=== PATIENT | male | born 1960 | race Caucasian/White ===

== ENCOUNTER 2017-03-12 09:35 | Outpatient (RCR) | payer BC ==
[2017-03-10] MEDS: CATHETER FLUSH 10 ML SYR IV PRN (13:25)
[2017-03-10 14:05] VITALS: BP 153/94
[2017-03-11] MEDS: cefTRIAXone 1 GM/NS 50 ML IVPB IV SCH ×2 (09:45)
[2017-03-11] MEDS: CATHETER FLUSH 10 ML SYR IV PRN (10:15)
[2017-03-11 10:20] VITALS: BP 129/80
[~2017-03-12] VITALS: Ht 177.8 cm; Wt 100.2 kg
[~2017-03-12 09:35] MED LIST: ASP81CT PO; ASP81TEC PO; CLINDAMYCIN 600 MG/NS 50 ML IVPB IV ONE; CYCL10TA9 PO; DIAZ5TAB3 PO; DICL75TA2 PO; DULO60CA6 PO; ENAL1TAB19 PO; HYDR-3454 PO; HYDR-3730 PO; MELO-195 PO; NIA500ERT PO; SIMV40TA4 PO; TADA2.5T PO; VENL75CA55 PO; VENL75TA6 PO; cefTRIAXone 2 GM/NS 50 ML IVPB IV ONE
[2017-03-12] MEDS: cefTRIAXone 1 GM/NS 50 ML IVPB IV SCH ×2 (09:45)
[2017-03-12] MEDS: CATHETER FLUSH 10 ML SYR IV PRN (10:10)
[2017-03-12 10:20] VITALS: BP 143/84
[2017-03-19] MEDS ORDERED: cefTRIAXone 1 GM (ROCEPHIN) VIAL ONE (20:56)
[2017-03-19] MEDS ORDERED: NS (IVPB) 50 ML ONE (20:57)
== END 2017-03-18 | disposition home or self-care (01) ==
LOC: SDC 09:35
PROVIDERS: ATTEND Nurse Practitioner Family
DX: K04.7 Periapical abscess without sinus (principal)
CPT/HCPCS: 96365; 96368

== ENCOUNTER → 2017-03-18 21:15 | Outpatient (RCR) | payer BC ==
[2017-03-17 21:00] VITALS: BP 116/67
[2017-03-17 21:12] LABS: MEAN PLATELET VOLUME 9.7 FL (7.4-10.4); RED BLOOD COUNT 4.48 10^6/uL (4.35-5.85); RED CELL DISTRIBUTION WIDTH 13.6 % (10.0-14.5); WHITE BLOOD COUNT 6.3 10^3/uL (4.3-11.0)
[~2017-03-18] VITALS: Ht 177.8 cm; Wt 99.8 kg
[~2017-03-18 21:15] MED LIST changes: -CLINDAMYCIN 600 MG/NS 50 ML IVPB IV ONE; -cefTRIAXone 2 GM/NS 50 ML IVPB IV ONE
[2017-03-18 22:00] VITALS: BP 117/75
== END | disposition home or self-care (01) ==
LOC: 4THo 03-17 20:49 → 4TH RCR 03-17 21:10 → 4THo 09:14 → 4TH RCR 21:15
PROVIDERS: ATTEND Nurse Practitioner Family
DX: K04.7 Periapical abscess without sinus (principal)
CPT/HCPCS: 36415; 85027; 96365

== ENCOUNTER 2017-03-19 21:00 | Outpatient (RCR) | payer BC ==
[~2017-03-19] VITALS: Ht 177.8 cm; Wt 99.8 kg
[2017-03-19] MEDS ORDERED: cefTRIAXone INJECTION 1,000 MG in NS (IVPB) 50 ML IV ONE (21:30)
[2017-03-19 22:10] VITALS: BP 122/79
== END 2017-06-17 | disposition home or self-care (01) ==
LOC: 4TH RCR 21:00
PROVIDERS: ATTEND Nurse Practitioner Family
DX: K04.7 Periapical abscess without sinus (principal)
CPT/HCPCS: 96365

== ENCOUNTER 2018-07-06 14:26 | Outpatient (CLI) | payer BC ==
[~2018-07-06] VITALS: Ht 175.3 cm; Wt 101.2 kg
[2018-07-06] MEDS ORDERED: SIMV40TA4 PO (14:30)
[2018-07-06] MEDS ORDERED: DICL75TA2 PO (14:30)
[2018-07-06] MEDS ORDERED: GABA-488 PO (14:30)
[2018-07-06] MEDS ORDERED: VENL75CA PO (14:30)
[2018-07-06] MEDS ORDERED: DULO60CA58 PO (14:30)
[2018-07-06] MEDS ORDERED: CYCL10TA9 PO (14:30)
[2018-07-06] MEDS ORDERED: ENAL1TAB8 PO (14:30)
[2018-07-06] MEDS ORDERED: DIAZ5TAB3 PO (14:30)
[2018-07-06] MEDS ORDERED: ASPI-999 PO (14:30)
== END 2018-07-06 14:32 | disposition home or self-care (01) ==
LOC: PREOP 14:26
PROVIDERS: ATTEND Surgery
DX: Z01.818 Encounter for other preprocedural examination (principal)

== ENCOUNTER 2018-07-11 09:28 | Day surgery (SDC) | payer BC ==
[~2018-07-11] VITALS: Ht 175.3 cm; Wt 101.2 kg
[~2018-07-11 09:28] MED LIST changes: +ASPI-999 PO; +DULO60CA58 PO; +ENAL1TAB8 PO; +GABA-488 PO; +VENL75CA PO
[2018-07-11] MEDS: NS IV 500 ML 500 ML IV PRN ×2 (09:40→10:15)
[2018-07-11] MEDS ORDERED: MIDAZOLAM 2 MG/2 ML (VERSED) VIAL IVP ONE (09:45)
[2018-07-11] MEDS ORDERED: fentaNYL INJECTION 100 MCG/2 ML AMP IVP ONE (09:45)
[2018-07-11] MEDS ORDERED: LIDOCAINE JELLY 2% 6 ML SYRINGE TOP ONE (09:45)
[2018-07-11 10:11] VITALS: BP 144/91
[2018-07-11] MEDS ORDERED: fentaNYL INJECTION 100 MCG/2 ML AMP ONE ×2 (10:24→10:48)
[2018-07-11] MEDS ORDERED: MIDAZOLAM 2 MG/2 ML (VERSED) VIAL ONE ×4 (10:24)
[2018-07-11] MEDS ORDERED: LIDOCAINE JELLY 2% 6 ML SYRINGE ONE (10:25)
--- NOTE | 2018-07-11 10:26 | Conscious Sedation/ASA ---
Conscious Sedation Pre-Proced Time 10:00 ASA Score 2 For ASA 3 and 4: Consider anesthesia and medical clearance. Also, for patients with a history of failed moderate sedation consider anesthesia. Airway Lungs Heart ASA score ASA 1: a normal healthy patient ASA 2: a patient with a mild systemic disease (mid diabetes, controlled hypertension, obesity ASA 3: a patient with a severe systemic disease that limits activity (angina , COPD, prior Myocardial infarction) ASA 4: a patient with an incapacitating disease that is a constant threat to life (CHF, renal failure) ASA 5: a moribund patient not expected to survive 24 hrs. (ruptured aneurysm) ASA 6: a declared brain patient whose organs are being harvested. For emergent operations, add the letter E after the classification Mallampati Classification Grade 2 Sedation Plan Analgesia, Amnesia, Plan communicated to team members, Discussed options with patient/fam, Discussed risks with patient/fam The patient is an appropriate candidate to undergo the planned procedure, sedation, and anesthesia. The patient immediately re-assessed prior to indication. ED GLASER MD Jul 11, 2018 10:26
--- NOTE | 2018-07-11 10:27 | Progress Note-Pre Operative ---
Pre-Operative Progress Note H&P Reviewed The H&P was reviewed, patient examined and no changes noted. Date Seen by Provider: Jul 11, 2018 Time Seen by Provider: 10:00 Date H&P Reviewed: Jul 11, 2018 Time H&P Reviewed: 10:00 Pre-Operative Diagnosis: screening colonoscopy ED GLASER MD Jul 11, 2018 10:27
[2018-07-11] MEDS ORDERED: ONDANSETRON 4 MG/2 ML (SDV) Z0FRAN IV PRN (10:30)
[2018-07-11] MEDS ORDERED: morphine INJ 10 MG/ML 1ML (SYR OR VIAL) IV PRN (10:30)
[2018-07-11] MEDS ORDERED: HYDROcodone/APAP 5 MG/325 MG (LORTAB) TAB PO PRN (10:30)
[2018-07-11] MEDS ORDERED: ACETAMINOPHEN 325 MG TABLET PO PRN (10:30)
--- NOTE | 2018-07-11 11:08 | Progress Note-Post Operative ---
Post-Operative Progess Note Surgeon (s)/Railroad Car Letterer (s) Surgeon ED GLASER MD Railroad Car Letterer: none Pre-Operative Diagnosis screening colonoscopy Post-Operative Diagnosis mild sigmoid diverticulosis Procedure & Operative Findings Date of Procedure 07/11/18 Procedure Performed/Findings Colonoscopy Anesthesia Type CS Estimated Blood Loss Estimated blood loss (mL): minimal Specimens/Packing Specimens Removed none ED GLASER MD Jul 11, 2018 11:08
--- NOTE | 2018-07-11 11:10 | Discharge Inst-Surgical ---
D/C Lap Instructions-KIDO New, Converted, or Re-Newed RX: RX on Chart Follow Up 10 years Activity as tolerated High Fiber Diet 25g or more per day Avoid Alcohol, Caffeine, Spicy Exmore and Acid foods. Drink 64 fluid oz or more of fluids per day. Symptoms to Report: Fever over 101 degree F, Nausea/Vomiting If any problems/questions: Contact your physician or go to Emergency Room ED GLASER MD Jul 11, 2018 11:10
[2018-07-11 11:20] VITALS: BP 95/47
[2018-07-11 11:50] VITALS: BP 112/58
[2018-07-11 12:12] VITALS: BP 112/58
--- NOTE | 2018-07-11 12:12 | NUR ---
HAS BEEN ALERT, TAKING PO FLUIDS WITHOUT PROBLEM AND DENIES COMPLAINTS THROUGHOUT RECOVERY PERIOD. HAS PASSED FLATUS, READY FOR DISMISSAL.
--- OUTSIDE RECORDS SUMMARY | 2018-07-11 12:41 | XMS REPORT | CCD ---
Author Author [facility] Organization [facility] Address [address] [place] [address] Phone Care Team Providers Care Museum Director Name Role Phone PP Unavailable CCM Unavailable Summary Purpose Interface Exchange Insurance Providers Payer name Policy type / Coverage type Covered libertarian ID Effective Begin Date Effective End Date Blue Cross Blue [facility] Blue Cross/Blue Shield [id number] Unknown Unknown Family history Father Diagnosis Age At Onset Cancer Unknown Stroke Unknown Heart Attack Unknown Hyperlipidemia Unknown Diabetes mellitus Type 2 Unknown Arthritis Unknown Heart disease Unknown Mother Diagnosis Age At Onset Arthritis Unknown Hypertension Unknown Breast cancer Unknown Sister Diagnosis Age At Onset Multiple sclerosis Unknown Social History Social History Element Codes Description Effective Dates Employment Unknown 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 Number of children Unknown 3 one daughter lives locally, other children live in [facility] 05/04/2015 Marital status Unknown Danielle 11/06/[address]: 444229299 Has never smoked or chewed tobacco 11/06/2014 Alcohol history Unknown occasionally drinks alcohol 11/06/2014 Allergies, Adverse Reactions, Alerts Substance Reaction Codes Entered Date Inactivated Date Status * NO KNOWN FOOD ALLERGIES Unknown 11/06/2014 No Inactive Date Active amoxicillin RxNorm: 723 11/06/2014 No Inactive Date Active AUGMENTIN RxNorm: 252545 11/06/2014 No Inactive Date Active Past Medical History Illness Codes Condition Status Onset Date Resolved Date Encounter for screening for malignant neoplasm of prostate ICD-9: V76.44 ICD-10: Z12.5 Active 07/15/2016 Unknown Essential (primary) hypertension ICD-9: 401.9 ICD-10: I10 Active 07/15/2016 Unknown Impaired fasting glucose ICD-9: 790.21 ICD-10: R73.01 Active 07/15/2016 Unknown Mixed hyperlipidemia ICD-9: 272.4 ICD-10: E78.2 Active 11/05/2014 Unknown Bilateral primary osteoarthritis of knee ICD-9: 715.96 ICD-10: M17.0 Active 03/07/2016 Unknown Low back pain ICD-9: 724.2 ICD-10: M54.5 Active 11/16/2016 Unknown Cellulitis and abscess of mouth ICD-9: 528.3 ICD-10: K12.2 Active 03/16/2017 Unknown Periapical abscess without sinus ICD-9: 522.5 ICD-10: K04.7 Active 03/10/2017 Unknown Drug induced constipation ICD-9: 564.09 ICD-10: K59.03 Active 07/15/2016 Unknown Encounter for screening for other viral diseases ICD-9: V73.89 ICD-10: Z11.59 Active 07/15/2016 Unknown Depression Unknown Active 08/06/2015 Unknown Cervicalgia ICD-9: 723.1 ICD-10: M54.2 Active 08/05/2015 Unknown Dental caries, unspecified ICD-9: 521.09 ICD-10: K02.9 Active 08/05/2015 Unknown Major depressive disorder, single episode, unspecified ICD-9: 311 ICD-10: F32.9 Active 08/05/2015 Unknown Other specified polyneuropathies ICD-9: 356.8 ICD-10: G62.89 Active 08/05/2015 Unknown Idiopathic gout, unspecified ankle and foot ICD-9: 274.9 ICD-10: M10.079 Active 11/05/2014 Unknown Morbid (severe) obesity due to excess calories ICD-9: 278.01 ICD-10: E66.01 Active 2015 Unknown Hyperlipidemia Unknown Active 11/06/2014 Unknown Hypertension Unknown Active 11/06/2014 Unknown GOUT ICD-9: 274.9 Active 11/05/2014 Unknown HYPERLIPIDEMIA ICD-9: 272.4 Active 11/05/2014 Unknown Sinusitis, acute ICD-9 : 461.9 Active 11/05/2014 Unknown Problems Condition Codes Effective Dates Condition Status Encounter for screening for malignant neoplasm of prostate ICD-9: V76.44 ICD-10: Z12.5 07/15/2016 Active Essential (primary) hypertension ICD-9: 401.9 ICD-10: I10 07/15/2016 Active Impaired fasting glucose ICD-9: 790.21 ICD-10: R73.01 07/15/2016 Active Mixed hyperlipidemia ICD-9: 272.4 ICD-10: E78.2 11/05/2014 Active Bilateral primary osteoarthritis of knee ICD-9: 715.96 ICD-10: M17.0 03/07/2016 Active Low back pain ICD-9: 724.2 ICD-10: M54.5 11/16/2016 Active Cellulitis and abscess of mouth ICD-9: 528.3 ICD-10: K12.2 03/16/2017 Active Periapical abscess without sinus ICD-9: 522.5 ICD-10: K04.7 03/10/2017 Active Drug induced constipation ICD-9: 564.09 ICD-10: K59.03 07/15/2016 Active Encounter for screening for other viral diseases ICD-9: V73.89 ICD-10: Z11.59 07/15/2016 Active Depression Unknown 08/06/2015 Active Cervicalgia ICD-9: 723.1 ICD-10: M54.2 08/05/2015 Active Dental caries, unspecified ICD-9: 521.09 ICD-10: K02.9 08/05/2015 Active Major depressive disorder, single episode, unspecified ICD-9: 311 ICD-10: F32.9 08/05/2015 Active Other specified polyneuropathies ICD-9: 356.8 ICD-10: G62.89 08/05/2015 Active Idiopathic gout, unspecified ankle and foot ICD-9: 274.9 ICD-10: M10.079 11/05/2014 Active Morbid (severe) obesity due to excess calories ICD-9: 278.01 ICD-10: E66.01 2015 Active Hyperlipidemia Unknown 11/06/2014 Active Hypertension Unknown 11/06/2014 Active GOUT ICD-9: 274.9 11/05/2014 Active HYPERLIPIDEMIA ICD-9: 272.4 11/05/2014 Active Sinusitis, acute ICD-9 : 461.9 11/05/2014 Active Medications Medication Codes Instructions Start Date Stop Date Status Fill Instructions Claritin-D 24 Hour 10 mg-240 mg tablet,extended release RxNorm: 5333981 Tablet(s) TAKE ONE TABLET BY MOUTH DAILY 06/20/2018 08/18/2018 Active Claritin-D 24 Hour 10 mg-240 mg tablet,extended release RxNorm: 5657817 TAKE ONE TABLET BY MOUTH DAILY 06/18/20182018 Inactive hydrocodone 10 mg-acetaminophen 325 mg tablet RxNorm: 506803 1 Tablet(s) PO QID as needed tooth abscess pain or back pain 06/14/2018 07/13/2018 Active simvastatin 40 mg tablet RxNorm: 785103 TAKE ONE TABLET BY MOUTH EVERY NIGHT AT BEDTIME 06/13/2018 09/10/2018 Active enalapril 5 mg-hydrochlorothiazide 12.5 mg tablet RxNorm: 932036 TAKE ONE TABLET BY MOUTH DAILY 05/28/2018 11/23/2018 Active hydrocodone 10 mg-acetaminophen 325 mg tablet RxNorm: 498347 1 Tablet(s) PO QID as needed tooth abscess pain or back pain 05/15/2018 06/13/2018 Inactive Cymbalta 60 mg capsule,delayed release RxNorm: 157014 TAKE ONE CAPSULE BY MOUTH DAILY 05/14/2018 08/11/2018 Active diclofenac sodium 75 mg tablet,delayed release RxNorm: 454304 TAKE ONE TABLET BY MOUTH TWICE A DAY 04/23/2018 09/19/2018 Active Valium 5 mg tablet RxNorm: 851781 Tablet(s) TAKE ONE TABLET BY MOUTH EVERY NIGHT AT BEDTIME 04/18/2018 05/17/2018 Inactive hydrocodone 10 mg-acetaminophen 325 mg tablet RxNorm: 148186 1 Tablet(s) PO QID as needed tooth abscess pain or back pain 04/16/2018 05/14/2018 Inactive hydrocodone 10 mg-acetaminophen 325 mg tablet RxNorm: 707624 1 Tablet(s) PO QID as needed tooth abscess pain or back pain 03/15/2018 04/13/2018 Inactive Effexor 75 mg tablet RxNorm: 139979 TAKE ONE TABLET BY MOUTH DAILY 03/14/2018 08/10/2018 Active hydrocodone 10 mg-acetaminophen 325 mg tablet RxNorm: 226945 1 Tablet(s) PO QID as needed tooth abscess pain or back pain 02/16/2018 03/14/2018 Inactive simvastatin 40 mg tablet RxNorm: 527135 TAKE ONE TABLET BY MOUTH EVERY NIGHT AT BEDTIME 02/12/2018 06/11/2018 Inactive Cymbalta 60 mg capsule,delayed release RxNorm: 614890 TAKE ONE CAPSULE BY MOUTH DAILY 02/12/2018 05/12/2018 Inactive diclofenac sodium 75 mg tablet,delayed release RxNorm: 456960 TAKE ONE TABLET BY MOUTH TWICE A DAY 01/26/2018 04/22/2018 Inactive hydrocodone 10 mg-acetaminophen 325 mg tablet RxNorm: 583842 1 Tablet(s) PO QID as needed tooth abscess pain or back pain 01/18/2018 02/15/2018 Inactive Claritin-D 24 Hour 10 mg-240 mg tablet,extended release RxNorm: 9998107 Tablet(s) TAKE ONE TABLET BY MOUTH DAILY 01/08/2018 04/07/2018 Inactive enalapril 5 mg-hydrochlorothiazide 12.5 mg tablet RxNorm: 428194 TAKE ONE TABLET BY MOUTH DAILY 12/29/2017 05/27/2018 Inactive hydrocodone 10 mg-acetaminophen 325 mg tablet RxNorm: 569714 1 Tablet(s) PO QID as needed tooth abscess pain or back pain 12/21/2017 01/17/2018 Inactive Cymbalta 60 mg capsule,delayed release RxNorm: 386621 TAKE ONE CAPSULE BY MOUTH DAILY 12/15/2017 02/11/2018 Inactive hydrocodone 10 mg-acetaminophen 325 mg tablet RxNorm: 949977 1 Tablet(s) PO QID as needed tooth abscess pain or back pain 11/22/2017 11/21/2017 Inactive hydrocodone 10 mg-acetaminophen 325 mg tablet RxNorm: 361864 1 Tablet(s) PO QID as needed tooth abscess pain or back pain 11/22/2017 12/20/2017 Inactive Movantik 25 mg tablet RxNorm: 1178049 1 Tablet(s) PO QAM 201712/07/2017 Inactive hydrocodone 10 mg-acetaminophen 325 mg tablet RxNorm: 080723 1 Tablet(s) PO QID as needed tooth abscess pain or back pain 10/20/2017 11/18/2017 Inactive Effexor 75 mg tablet RxNorm: 795427 TAKE ONE TABLET BY MOUTH DAILY 10/10/2017 03/08/2018 Inactive diclofenac sodium 75 mg tablet,delayed release RxNorm: 997557 TAKE ONE TABLET BY MOUTH TWICE A DAY 10/02/2017 01/25/2018 Inactive hydrocodone 10 mg-acetaminophen 325 mg tablet RxNorm: 828918 1 Tablet(s) PO QID as needed tooth abscess pain or back pain 09/27/2017 10/26/2017 Inactive simvastatin 40 mg tablet RxNorm: 009433 TAKE ONE TABLET BY MOUTH EVERY NIGHT AT BEDTIME 09/13/2017 02/09/2018 Inactive Cymbalta 60 mg capsule,delayed release RxNorm: 804343 TAKE ONE CAPSULE BY MOUTH DAILY 09/13/2017 12/11/2017 Inactive Claritin-D 24 Hour 10 mg-240 mg tablet,extended release RxNorm: 9060332 Tablet(s) TAKE ONE TABLET BY MOUTH DAILY 08/28/2017 11/25/2017 Inactive Claritin-D 24 Hour 10 mg-240 mg tablet,extended release RxNorm: 5219516 TAKE ONE TABLET BY MOUTH DAILY 08/28/20172017 Inactive hydrocodone 10 mg-acetaminophen 325 mg tablet RxNorm: 117712 1 Tablet(s) PO QID as needed tooth abscess pain or back pain 08/25/2017 09/23/2017 Inactive Valium 5 mg tablet RxNorm: 117359 Tablet(s) TAKE ONE TABLET BY MOUTH EVERY NIGHT AT BEDTIME 08/07/2017 11/02/2017 Inactive Metanx (algal oil) 3 mg-35 mg-2 mg-90.314 mg capsule RxNorm: TAKE ONE CAPSULE BY MOUTH TWO TIMES DAILY 08/02/20172017 Inactive hydrocodone 10 mg-acetaminophen 325 mg tablet RxNorm: 464338 1 Tablet(s) PO QID as needed tooth abscess pain or back pain 07/27/2017 08/24/2017 Inactive enalapril 5 mg-hydrochlorothiazide 12.5 mg tablet RxNorm: 836599 TAKE ONE TABLET BY MOUTH DAILY 07/03/2017 12/28/2017 Inactive hydrocodone 10 mg-acetaminophen 325 mg tablet RxNorm: 442977 1 Tablet(s) PO QID as needed tooth abscess pain or back pain 06/23/2017 07/22/2017 Inactive hydrocodone 10 mg-acetaminophen 325 mg tablet RxNorm: 298787 1 Tablet(s) PO QID as needed tooth abscess pain or back pain 05/31/2017 06/22/2017 Inactive diclofenac sodium 75 mg tablet,delayed release RxNorm: 408191 TAKE ONE TABLET BY MOUTH TWICE A DAY 05/29/2017 09/25/2017 Inactive Valium 5 mg tablet RxNorm: 794528 Tablet(s) TAKE ONE TABLET BY MOUTH EVERY NIGHT AT BEDTIME 05/16/2017 04/17/2018 Inactive Cymbalta 60 mg capsule,delayed release RxNorm: 810154 TAKE ONE CAPSULE BY MOUTH DAILY 05/15/2017 09/11/2017 Inactive hydrocodone 10 mg-acetaminophen 325 mg tablet RxNorm: 342109 1 Tablet(s) PO QID as needed tooth abscess pain or back pain 2017 05/30/2017 Inactive Claritin-D 24 Hour 10 mg-240 mg tablet,extended release RxNorm: 8536535 Tablet(s) TAKE ONE TABLET BY MOUTH DAILY 04/19/2017 07/17/2017 Inactive hydrocodone 5 mg-acetaminophen 325 mg tablet RxNorm: 390002 1-2 Tablet(s) PO Q6 as needed 04/18/2017 05/02/2017 Inactive Effexor 75 mg tablet RxNorm: 702446 TAKE ONE TABLET BY MOUTH DAILY 04/13/2017 10/09/2017 Inactive Keflex 500 mg capsule RxNorm: 493353 1 Capsule(s) PO TID 201603/26/2017 Inactive clindamycin 300 mg capsule RxNorm: 176799 1 Capsule(s) PO TID 03/20/2017 03/26/2017 Inactive ceftriaxone 500 mg solution for injection RxNorm: 3554639 1 Gram(s) Inj 03/16/2017 03/16/2017 Inactive clindamycin 300 mg capsule RxNorm: 744962 1 Capsule(s) PO TID 03/16/2017 03/19/2017 Inactive hydrocodone 5 mg-acetaminophen 325 mg tablet RxNorm: 192388 1-2 Tablet(s) PO Q6 as needed 03/16/2017 03/16/2017 Inactive Keflex 500 mg capsule RxNorm: 514149 1 Capsule(s) PO TID 201603/19/2017 Inactive hydrocodone 10 mg-acetaminophen 325 mg tablet RxNorm: 248789 1 Tablet(s) PO QID as needed tooth abscess pain or back pain 03/16/2017 04/14/2017 Inactive simvastatin 40 mg tablet RxNorm: 016789 TAKE ONE TABLET BY MOUTH EVERY NIGHT AT BEDTIME 03/13/2017 09/08/2017 Inactive clindamycin 300 mg capsule RxNorm: 428789 1 Capsule(s) PO TID 03/10/2017 03/15/2017 Inactive hydrocodone 5 mg-acetaminophen 325 mg tablet RxNorm: 587209 1-2 Tablet(s) PO Q6 as needed 03/03/2017 03/15/2017 Inactive hydrocodone 5 mg-acetaminophen 325 mg tablet RxNorm: 373286 1 to 2 Tablet(s) PO Q6 as needed 02/15/2017 02/25/2017 Inactive hydrocodone 5 mg-acetaminophen 325 mg tablet RxNorm: 974717 1 to 2 Tablet(s) PO Q6 as needed 02/02/2017 02/12/2017 Inactive enalapril 5 mg-hydrochlorothiazide 12.5 mg tablet RxNorm: 322811 TAKE ONE TABLET BY MOUTH DAILY 01/23/2017 06/21/2017 Inactive diclofenac sodium 75 mg tablet,delayed release RxNorm: 205950 TAKE ONE TABLET BY MOUTH TWICE A DAY 01/23/2017 05/22/2017 Inactive hydrocodone 5 mg-acetaminophen 325 mg tablet RxNorm: 717811 1 to 2 Tablet(s) PO Q6 as needed 01/12/2017 01/22/2017 Inactive hydrocodone 5 mg-acetaminophen 325 mg tablet RxNorm: 036204 1 to 2 Tablet(s) PO Q6 as needed 12/29/2016 01/08/2017 Inactive hydrocodone 5 mg-acetaminophen 325 mg tablet RxNorm: 850937 1 to 2 Tablet(s) PO Q6 as needed 12/16/2016 12/26/2016 Inactive Cymbalta 60 mg capsule,delayed release RxNorm: 328470 TAKE ONE CAPSULE BY MOUTH DAILY 12/14/2016 05/12/2017 Inactive hydrocodone 5 mg-acetaminophen 325 mg tablet RxNorm: 031593 1 to 2 Tablet(s) PO Q6 as needed 11/30/2016 12/10/2016 Inactive Voltaren 1 % topical gel RxNorm: 690732 2 Gram(s) TOP QID bilateral SI joints 11/16/2016 01/14/2017 Inactive diclofenac sodium 75 mg tablet,delayed release RxNorm: 806092 TAKE ONE TABLET BY MOUTH TWICE A DAY 10/31/2016 01/22/2017 Inactive hydrocodone 5 mg-acetaminophen 325 mg tablet RxNorm: 965059 1 to 2 Tablet(s) PO Q6 as needed 10/27/2016 11/06/2016 Inactive hydrocodone 5 mg-acetaminophen 325 mg tablet RxNorm: 046872 1 to 2 Tablet(s) PO Q6 as needed 10/05/2016 10/15/2016 Inactive Effexor 75 mg tablet RxNorm: 222399 TAKE ONE TABLET BY MOUTH DAILY 10/03/2016 03/31/2017 Inactive Claritin-D 24 Hour 10 mg-240 mg tablet,extended release RxNorm: 9835635 Tablet(s) TAKE ONE TABLET BY MOUTH DAILY 09/26/2016 12/24/2016 Inactive hydrocodone 5 mg-acetaminophen 325 mg tablet RxNorm: 178264 1 to 2 Tablet(s) PO Q6 as needed 09/09/2016 09/19/2016 Inactive hydrocodone 5 mg-acetaminophen 325 mg tablet RxNorm: 792736 1 to 2 Tablet(s) PO Q6 as needed 08/19/2016 08/29/2016 Inactive hydrocodone 5 mg-acetaminophen 325 mg tablet RxNorm: 847402 1 to 2 Tablet(s) PO Q6 as needed 08/01/2016 08/11/2016 Inactive enalapril 5 mg-hydrochlorothiazide 12.5 mg tablet RxNorm: 533817 Tablet(s) TAKE ONE TABLET BY MOUTH DAILY 07/18/201601/13 Inactive Movantik 25 mg tablet RxNorm: 6178599 1 Tablet(s) PO QAM 201611/07/2017 Inactive hydrocodone 5 mg-acetaminophen 325 mg tablet RxNorm: 734222 1 to 2 Tablet(s) PO Q6 as needed 07/15/2016 07/25/2016 Inactive diclofenac sodium 75 mg tablet,delayed release RxNorm: 271794 TAKE ONE TABLET BY MOUTH TWICE A DAY 06/27/2016 10/24/2016 Inactive hydrocodone 5 mg-acetaminophen 325 mg tablet RxNorm: 221422 1 to 2 Tablet(s) PO Q6 as needed 06/16/2016 06/26/2016 Inactive Claritin-D 24 Hour 10 mg-240 mg tablet,extended release RxNorm: 3646729 Tablet(s) TAKE ONE TABLET BY MOUTH DAILY 06/10/2016 08/08/2016 Inactive Metanx (algal oil) 3 mg-35 mg-2 mg-90.314 mg capsule RxNorm: Capsule(s) TAKE ONE CAPSULE BY MOUTH TWO TIMES DAILY 06/02/2016 05/27/2017 Inactive hydrocodone 5 mg-acetaminophen 325 mg tablet RxNorm: 624459 1 to 2 Tablet(s) PO Q6 as needed 05/27/2016 06/06/2016 Inactive Valium 5 mg tablet RxNorm: 843985 Tablet(s) TAKE ONE TABLET BY MOUTH EVERY NIGHT AT BEDTIME 05/16/2016 07/14/2016 Inactive Metanx (algal oil) 3 mg-35 mg-2 mg-90.314 mg capsule RxNorm: TAKE ONE CAPSULE BY MOUTH TWO TIMES DAILY 05/11/20162015 Inactive hydrocodone 5 mg-acetaminophen 325 mg tablet RxNorm: 186832 1 to 2 Tablet(s) PO Q6 as needed 04/25/2016 05/02/2016 Inactive [SAVINGS FOR NON-COVERED DRUGS -- BIN: [id number], PCN: ASPROD1, Group: XXXXX, ID# [id number], Questions: . THIS IS NOT INSURANCE.] hydrocodone 5 mg-acetaminophen 325 mg tablet RxNorm: 526014 1 to 2 Tablet(s) PO Q6 as needed 04/01/2016 04/08/2016 Inactive [SAVINGS FOR NON-COVERED DRUGS -- BIN: 071303, PCN: ASPROD1, Group: XXXXX, ID# [id number], Questions: . THIS IS NOT INSURANCE.] diclofenac sodium 75 mg tablet,delayed release RxNorm: 105354 TAKE ONE TABLET BY MOUTH TWICE A DAY 03/21/2016 06/18/2016 Inactive enalapril 5 mg-hydrochlorothiazide 12.5 mg tablet RxNorm: 915296 TAKE ONE TABLET BY MOUTH DAILY 03/21/2016 07/17/2016 Inactive Claritin-D 24 Hour 10 mg-240 mg tablet,extended release RxNorm: 5348616 Tablet(s) TAKE ONE TABLET BY MOUTH DAILY 03/11/2016 06/08/2016 Inactive hydrocodone 5 mg-acetaminophen 325 mg tablet RxNorm: 701686 1 to 2 Tablet(s) PO Q6 as needed 03/08/2016 03/15/2016 Inactive [SAVINGS FOR NON-COVERED DRUGS -- BIN: [id number], PCN: ASPROD1, Group: XXXXX, ID# [id number], Questions: . THIS IS NOT INSURANCE.] simvastatin 40 mg tablet RxNorm: 442548 1 Tablet(s) PO QHS 10/03/2016 Inactive Effexor 75 mg tablet RxNorm: 148637 Tablet(s) TAKE ONE TABLET BY MOUTH DAILY 03/08/2016 10/02/2016 Inactive simvastatin 40 mg tablet RxNorm: 160247 TAKE ONE TABLET BY MOUTH EVERY NIGHT AT BEDTIME 02/05/2016 05/04/2016 Inactive Request already responded to by other means (e.g. phone or fax) hydrocodone 5 mg-acetaminophen 325 mg tablet RxNorm: 320612 1 to 2 Tablet(s) PO Q6 as needed 02/02/2016 02/09/2016 Inactive [SAVINGS FOR NON-COVERED DRUGS -- BIN: 763535, PCN: ASPROD1, Group: XXXXX, ID# [id number], Questions: . THIS IS NOT INSURANCE.] simvastatin 40 mg tablet RxNorm: 075369 1 Tablet(s) PO QHS 03/07/2016 Inactive Cymbalta 60 mg capsule,delayed release RxNorm: 681731 TAKE ONE CAPSULE BY MOUTH DAILY 01/14/2016 06/11/2016 Inactive Request already responded to by other means ( e.g. phone or fax) Claritin-D 24 Hour 10 mg-240 mg tablet,extended release RxNorm: 0014339 Tablet(s) TAKE ONE TABLET BY MOUTH DAILY 01/14/2016 02/12/2016 Inactive hydrocodone 5 mg-acetaminophen 325 mg tablet RxNorm: 907131 1 to 2 Tablet(s) PO Q6 as needed 01/14/2016 01/21/2016 Inactive [SAVINGS FOR NON-COVERED DRUGS -- BIN: 284168, PCN: ASPROD1, Group: XXXXX, ID# [id number], Questions: . THIS IS NOT INSURANCE.] Claritin-D 24 Hour 10 mg-240 mg tablet,extended release RxNorm: 0489106 TAKE ONE TABLET BY MOUTH DAILY 01/14/20162015 Inactive Cymbalta 60 mg capsule,delayed release RxNorm: 474494 Capsule(s) TAKE ONE CAPSULE BY MOUTH DAILY 01/12/2016 01/13/2016 Inactive Claritin-D 24 Hour 10 mg-240 mg tablet,extended release RxNorm: 3195778 TAKE ONE TABLET BY MOUTH DAILY 01/11/20162015 Inactive Claritin-D 24 Hour 10 mg-240 mg tablet,extended release RxNorm: 7522676 TAKE ONE TABLET BY MOUTH DAILY 01/11/20162015 Inactive Claritin-D 24 Hour 10 mg-240 mg tablet,extended release RxNorm: 3675089 TAKE ONE TABLET BY MOUTH DAILY 01/07/20162015 Inactive Effexor 75 mg tablet RxNorm: 350969 TAKE ONE TABLET BY MOUTH DAILY 01/01/2016 02/29/2016 Inactive diclofenac sodium 75 mg tablet,delayed release RxNorm: 817143 TAKE ONE TABLET BY MOUTH TWICE A DAY 12/23/2015 03/20/2016 Inactive enalapril 5 mg-hydrochlorothiazide 12.5 mg tablet RxNorm: 463828 TAKE ONE TABLET BY MOUTH DAILY 12/23/2015 03/20/2016 Inactive hydrocodone 5 mg-acetaminophen 325 mg tablet RxNorm: 468448 1 to 2 Tablet(s) PO Q6 as needed 12/22/2015 12/29/2015 Inactive [SAVINGS FOR NON-COVERED DRUGS -- BIN: 541514, PCN: ASPROD1, Group: XXXXX, ID# [id number], Questions: . THIS IS NOT INSURANCE.] Valium 5 mg tablet RxNorm: 387314 Tablet(s) TAKE ONE TABLET BY MOUTH EVERY NIGHT AT BEDTIME 12/01/2015 04/17/2018 Inactive hydrocodone 5 mg-acetaminophen 325 mg tablet RxNorm: 299228 1 to 2 Tablet(s) PO Q6 as needed 11/30/2015 12/07/2015 Inactive [SAVINGS FOR NON-COVERED DRUGS -- BIN: 525188, PCN: ASPROD1, Group: XXXXX, ID# [id number], Questions: . THIS IS NOT INSURANCE.] hydrocodone 5 mg-acetaminophen 325 mg tablet RxNorm: 247267 1 to 2 Tablet(s) PO Q6 as needed 11/09/2015 11/16/2015 Inactive [SAVINGS FOR NON-COVERED DRUGS -- BIN: 933084, PCN: ASPROD1, Group: XXXXX, ID# [id number], Questions: . THIS IS NOT INSURANCE.] Claritin-D 24 Hour 10 mg-240 mg tablet,extended release RxNorm: 6224217 Tablet(s) TAKE ONE TABLET BY MOUTH DAILY 11/05/2015 11/04/2015 Inactive Claritin-D 24 Hour 10 mg-240 mg tablet,extended release RxNorm: 1869232 Tablet(s) TAKE ONE TABLET BY MOUTH DAILY 11/05/2015 01/06/2016 Inactive Claritin-D 24 Hour 10 mg-240 mg tablet,extended release RxNorm: 9726613 Tablet(s) TAKE ONE TABLET BY MOUTH DAILY 10/30/2015 03/10/2016 Inactive hydrocodone 5 mg-acetaminophen 325 mg tablet RxNorm: 768615 1 to 2 Tablet(s) PO Q6 as needed 10/09/2015 10/16/2015 Inactive [SAVINGS FOR NON-COVERED DRUGS -- BIN: 725599, PCN: ASPROD1, Group: XXXXX, ID# [id number], Questions: . THIS IS NOT INSURANCE.] Effexor 75 mg tablet RxNorm: 326319 TAKE ONE TABLET BY MOUTH DAILY 10/05/2015 12/31/2015 Inactive simvastatin 40 mg tablet RxNorm: 267189 1 Tablet(s) PO QHS 01/31/2016 Inactive hydrocodone 5 mg-acetaminophen 325 mg tablet RxNorm: 671315 1 to 2 Tablet(s) PO Q6 as needed 09/15/2015 09/22/2015 Inactive [SAVINGS FOR NON-COVERED DRUGS -- BIN: 776647, PCN: ASPROD1, Group: XXXXX, ID# [id number], Questions: . THIS IS NOT INSURANCE.] Valium 5 mg tablet RxNorm: 602844 Tablet(s) TAKE ONE TABLET BY MOUTH EVERY NIGHT AT BEDTIME 09/08/2015 04/17/2018 Inactive enalapril 5 mg-hydrochlorothiazide 12.5 mg tablet RxNorm: 908301 Tablet(s) TAKE ONE TABLET BY MOUTH DAILY 08/21/201512/17 Inactive diclofenac sodium 75 mg tablet,delayed release RxNorm: 337705 1 Tablet(s) PO BID 08/21/2015 12/18/2015 Inactive hydrocodone 5 mg-acetaminophen 325 mg tablet RxNorm: 237658 1 to 2 Tablet(s) PO Q6 as needed 08/13/2015 08/20/2015 Inactive [SAVINGS FOR NON-COVERED DRUGS -- BIN: 605663, PCN: ASPROD1, Group: XXXXX, ID# [id number], Questions: . THIS IS NOT INSURANCE.] clindamycin 300 mg capsule RxNorm: 738512 1 Capsule(s) PO TID 08/06/2015 08/10/2015 Inactive Claritin-D 24 Hour 10 mg-240 mg tablet,extended release RxNorm: 0590529 Tablet(s) TAKE ONE TABLET BY MOUTH DAILY 07/23/2015 10/20/2015 Inactive hydrocodone 5 mg-acetaminophen 325 mg tablet RxNorm: 908903 1 to 2 Tablet(s) PO Q6 as needed 07/23/2015 07/30/2015 Inactive [SAVINGS FOR NON-COVERED DRUGS -- BIN: 978277, PCN: ASPROD1, Group: XXXXX, ID# [id number], Questions: . THIS IS NOT INSURANCE.] Claritin-D 24 Hour 10 mg-240 mg tablet,extended release RxNorm: 1316368 TAKE ONE TABLET BY MOUTH DAILY 07/22/20152015 Inactive Valium 5 mg tablet RxNorm: 724816 Tablet(s) TAKE ONE TABLET BY MOUTH EVERY NIGHT AT BEDTIME 07/22/2015 04/17/2018 Inactive Claritin-D 24 Hour 10 mg-240 mg tablet,extended release RxNorm: 1902062 TAKE ONE TABLET BY MOUTH DAILY 07/20/20152015 Inactive Cymbalta 60 mg capsule,delayed release RxNorm: 977033 TAKE ONE CAPSULE BY MOUTH DAILY 07/20/2015 01/11/2016 Inactive cyclobenzaprine 10 mg tablet RxNorm: 204226 TAKE ONE TABLET BY MOUTH AT BEDTIME NEEDED 07/06/2015 08/04/2015 Inactive hydrocodone 5 mg-acetaminophen 325 mg tablet RxNorm: 328779 1 to 2 Tablet(s) PO Q6 as needed 06/23/2015 06/30/2015 Inactive [SAVINGS FOR NON-COVERED DRUGS -- BIN: 683106, PCN: ASPROD1, Group: XXXXX, ID# [id number], Questions: . THIS IS NOT INSURANCE.] Effexor 75 mg tablet RxNorm: 638781 1 Tablet(s) PO daily 201409/28/2015 Inactive hydrocodone 5 mg-acetaminophen 325 mg tablet RxNorm: 735606 1 to 2 Tablet(s) PO Q6 as needed 05/22/2015 05/29/2015 Inactive [SAVINGS FOR NON-COVERED DRUGS -- BIN: 371568, PCN: ASPROD1, Group: XXXXX, ID# [id number], Questions: . THIS IS NOT INSURANCE.] Valium 5 mg tablet RxNorm: 460534 Tablet(s) TAKE ONE TABLET BY MOUTH EVERY NIGHT AT BEDTIME 05/22/2015 04/17/2018 Inactive diclofenac sodium 75 mg tablet,delayed release RxNorm: 301399 1 Tablet(s) PO BID 05/04/2015 08/20/2015 Inactive Metanx (algal oil) 3 mg-35 mg-2 mg-90.314 mg capsule RxNorm: 1 Capsule(s) PO BID 05/04/2015 04/27/2016 Inactive enalapril 5 mg-hydrochlorothiazide 12.5 mg tablet RxNorm: 980557 TAKE ONE TABLET BY MOUTH DAILY 04/27/2015 08/20/2015 Inactive hydrocodone 5 mg-acetaminophen 325 mg tablet RxNorm: 546842 1 to 2 Tablet(s) PO Q6 as needed 04/27/2015 05/04/2015 Inactive [SAVINGS FOR NON-COVERED DRUGS -- BIN: 846462, PCN: ASPROD1, Group: XXXXX, ID# [id number], Questions: . THIS IS NOT INSURANCE.] hydrocodone 5 mg-acetaminophen 325 mg tablet RxNorm: 840970 1 to 2 Tablet(s) PO Q6 as needed 03/26/2015 04/02/2015 Inactive [SAVINGS FOR NON-COVERED DRUGS -- BIN: [id number], PCN: ASPROD1, Group: XXXXX, ID# [id number], Questions: . THIS IS NOT INSURANCE.] Claritin-D 24 Hour 10 mg-240 mg tablet,extended release RxNorm: 9227637 Tablet(s) TAKE ONE TABLET BY MOUTH DAILY 03/24/2015 07/19/2015 Inactive Valium 5 mg tablet RxNorm: 729765 TAKE ONE TABLET BY MOUTH EVERY NIGHT AT BEDTIME 03/05/2015 04/03/2015 Inactive Valium 5 mg tablet RxNorm: 628254 1 Tablet(s) PO daily as needed 03/05/2015 03/05/2015 Inactive [SAVINGS FOR NON-COVERED DRUGS -- BIN:[id number], PCN: ASPROD1, Group : XXXXX, ID# [id number], Questions: . THIS IS NOT INSURANCE.] hydrocodone 5 mg-acetaminophen 325 mg tablet RxNorm: 169227 1 to 2 Tablet(s) PO Q6 as needed 02/18/2015 02/25/2015 Inactive [SAVINGS FOR NON-COVERED DRUGS -- BIN: [id number], PCN: ASPROD1, Group: XXXXX, ID# [id number], Questions: . THIS IS NOT INSURANCE.] enalapril 5 mg-hydrochlorothiazide 12.5 mg tablet RxNorm: 600886 1 Tablet(s) PO daily 01/30/2015 04/26/2015 Inactive hydrocodone 5 mg-acetaminophen 325 mg tablet RxNorm: 519077 1 to 2 Tablet(s) PO Q6 as needed 01/22/2015 01/29/2015 Inactive [SAVINGS FOR NON-COVERED DRUGS -- BIN: [id number], PCN: ASPROD1, Group: XXXXX, ID# [id number], Questions: . THIS IS NOT INSURANCE.] Claritin-D 24 Hour 10 mg-240 mg tablet,extended release RxNorm: 1842363 TAKE ONE TABLET BY MOUTH DAILY 01/15/20152014 Inactive Claritin-D 24 Hour 10 mg-240 mg tablet,extended release RxNorm: 5238884 Tablet(s) TAKE ONE TABLET BY MOUTH DAILY 01/15/2015 01/14/2015 Inactive cyclobenzaprine 10 mg tablet RxNorm: 818887 1 Tablet(s) PO QHS as needed 12/29/2014 01/27/2015 Inactive hydrocodone 5 mg-acetaminophen 325 mg tablet RxNorm: 886730 1 to 2 Tablet(s) PO Q6 as needed 12/23/2014 12/30/2014 Inactive [SAVINGS FOR NON-COVERED DRUGS -- BIN: [id number], PCN: ASPROD1, Group: XXXXX, ID# [id number], Questions: . THIS IS NOT INSURANCE.] Cymbalta 60 mg capsule,delayed release RxNorm: 372545 1 Capsule(s) PO daily 12/18/2014 07/15/2015 Inactive Claritin-D 24 Hour 10 mg-240 mg tablet,extended release RxNorm: 3257809 TAKE ONE TABLET BY MOUTH DAILY 12/15/20142014 Inactive Claritin-D 24 Hour 10 mg-240 mg tablet,extended release RxNorm: 8407932 TAKE ONE TABLET BY MOUTH DAILY 12/15/20142014 Inactive Claritin-D 24 Hour 10 mg-240 mg tablet,extended release RxNorm: 4489524 TAKE ONE TABLET BY MOUTH DAILY 12/15/20142014 Inactive Claritin-D 24 Hour 10 mg-240 mg tablet,extended release RxNorm: 3326734 1 Tablet(s ) PO daily 12/10/2014 12/14/2014 Inactive hydrocodone 5 mg-acetaminophen 325 mg tablet RxNorm: 954011 1 to 2 Tablet(s) PO Q6 as needed 12/08/2014 12/22/2014 Inactive [SAVINGS FOR NON-COVERED DRUGS -- BIN: [id number], PCN: ASPROD1, Group: XXXXX, ID# [id number], Questions: . THIS IS NOT INSURANCE.] hydrocodone 5 mg-acetaminophen 325 mg tablet RxNorm: 928346 1 to 2 Tablet(s) PO Q6 as needed 11/25/2014 12/07/2014 Inactive [SAVINGS FOR NON-COVERED DRUGS -- BIN: [id number], PCN: ASPROD1, Group: XXXXX, ID# [id number], Questions: . THIS IS NOT INSURANCE.] Claritin-D 24 Hour 10 mg-240 mg tablet,extended release RxNorm: 7500678 1 Tablet(s ) PO daily 11/07/2014 12/06/2014 Inactive Claritin-D 24 Hour 10 mg-240 mg tablet,extended release RxNorm: 0018017 1 Tablet(s ) PO daily 11/07/2014 11/06/2014 Inactive hydrocodone 5 mg-acetaminophen 325 mg tablet RxNorm: 478714 1 to 2 Tablet(s) PO Q6 as needed 11/03/2014 11/24/2014 Inactive [SAVINGS FOR NON-COVERED DRUGS -- BIN: [id number], PCN: ASPROD1, Group: XXXXX, ID# [id number], Questions: . THIS IS NOT INSURANCE.] Valium 5 mg tablet RxNorm: 115282 1 Tablet(s) PO daily as needed 10/23/2014 12/20/2014 Inactive [SAVINGS FOR NON-COVERED DRUGS -- BIN:145551, PCN: ASPROD1, Group : XXXXX, ID# [id number], Questions: . THIS IS NOT INSURANCE.] Cialis 5 mg tablet RxNorm: 442726 1/2 Tablet(s) PO daily No Stop Date Active [SAVINGS FOR NON-COVERED DRUGS -- BIN:[id number], PCN: ASPROD1, Group: XXXXX, ID# [id number], Questions: . THIS IS NOT INSURANCE.] aspirin 81 mg tablet RxNorm: 807998 1 Tablet(s) PO daily No Start Date Active Effexor 75 mg tablet RxNorm: 214675 1 Tablet(s) PO daily No Start Date 05/31/2015 Inactive Valium 5 mg tablet RxNorm: 008689 1 Tablet(s) PO daily as needed No Start Date 10/22/2014 Inactive simvastatin 40 mg tablet RxNorm: 187791 1 Tablet(s) PO QHS No Start Date 10/04/2015 Inactive enalapril 5 mg-hydrochlorothiazide 12.5 mg tablet RxNorm: 060942 oral No Start Date 01/29/2015 Inactive cyclobenzaprine 10 mg tablet RxNorm: 373594 1 Tablet(s) PO as needed No Start Date 12/28/2014 Inactive Cymbalta 60 mg capsule,delayed release RxNorm: 474481 1 Capsule(s) PO daily No Start Date 12/17/2014 Inactive hydrocodone 5 mg-acetaminophen 325 mg tablet RxNorm: 378640 1 to 2 Tablet(s) PO Q6 as needed No Start Date 11/02/2014 Inactive diclofenac sodium 75 mg tablet,delayed release RxNorm: 589192 1 Tablet(s) PO BID No Start Date 2015 Inactive Cialis 5 mg tablet RxNorm: 659163 1 Tablet(s) PO daily No Start Date 10/12/2014 Inactive Medication Administered Medication Codes Instructions Start Date Status ceftriaxone 500 mg solution for injection RxNorm: 2394796 1Gram 03/16/2017 No longer Active Immunizations No Immunization data Assessments Condition Codes Effective Dates Impaired fasting glucose ICD-10: R73.01 ICD-9: 790.21 05/28/2018 Essential (primary) hypertension ICD-10: I10 ICD-9: 401.9 05/28/2018 Encounter for screening for malignant neoplasm of prostate ICD-10: Z12.5 ICD-9: V76.44 05/28/2018 Mixed hyperlipidemia ICD-10: E78.2 ICD-9: 272.4 05/28/2018 Bilateral primary osteoarthritis of knee ICD-10: M17.0 ICD-9: 715.96 05/24/2018 Low back pain ICD-10: M54.5 ICD-9: 724.2 05/24/2018 Periapical abscess without sinus ICD-10: K04.7 ICD-9: 522.5 03/20/2017 Cellulitis and abscess of mouth ICD-10: K12.2 ICD-9: 528.3 03/20/2017 Drug induced constipation ICD-10: K59.03 ICD-9: 564.09 07/15/2016 Encounter for screening for other viral diseases ICD-10: Z11.59 ICD-9: V73.89 07/15/2016 Cervicalgia ICD-10: M54.2 ICD-9: 723.1 08/06/2015 Major depressive disorder, single episode, unspecified ICD- 10: F32.9 ICD-9: 311 08/06/2015 Dental caries, unspecified ICD-10: K02.9 ICD-9: 521.09 08/06/2015 Other specified polyneuropathies ICD-10: G62.89 ICD-9: 356.8 08/06/2015 Morbid (severe) obesity due to excess calories ICD-10: E66.01 ICD-9: 278.01 05/04/2015 Idiopathic gout, unspecified ankle and foot ICD-10: M10.079 ICD-9: 274.9 05/04/2015 Sinusitis, acute ICD-9: 461.9 11/06/2014 GOUT ICD-9: 274.9 11/06/2014 HYPERLIPIDEMIA ICD-9: 272.4 11/06/2014 Reason For Visit Reason For Visit Effective Dates Notes medication follow up 05/24/2018 knee pain 10/20/2017 oral pain 03/20/2017 low back pain 03/16/2017 oral pain 03/10/2017 low back pain 11/16/2016 knee pain 07/15/2016 knee pain 03/08/2016 medication follow up 11/26/2015 neck pain 08/06/2015 paresthesia 05/04/2015 sinus congestion 11/06/2014 Results Observation Observation Code Item Item Code Result Date %Hba1C Mit268 % HbA1c 14465-4 6.0 % 05/28/2018 %Hba1C Zuj190 Gluc Ave 126 mg/dL 05/28/2018 Total Psa Ord10 PSA 1.13 ng/mL 05/28/2018 Lipid Ord30 CHOL 178 mg/dL 05/28/2018 Lipid Ord30 HDL 56.0 mg/dl 05/28/2018 Lipid Ord30 TRIG 194 mg/dL 05/28/2018 Lipid Ord30 LDL 83 mg/dL 05/28/2018 Lipid Ord30 C/HDL 3.2 Ratio 05/28/2018 Comp Metabolic Ycg119 NA 140 mEq/L 05/28/2018 Comp Metabolic Gsi872 K 4.7 mEq/L 05/28/2018 Comp Metabolic Bzk157 CL 101 mEq/L 05/28/2018 Comp Metabolic Znq333 CO2 30.0 mEq/L 05/28/2018 Comp Metabolic Dwu787 ANION GAP 14 05/28/2018 Comp Metabolic Zkb310 GLUCOSE 103 mg/dL 05/28/2018 Comp Metabolic Rwp366 Creat 1.0 mg/dL 05/28/2018 Comp Metabolic Dfk907 eGFR 83 ml/min/1.73m2 05/28/2018 Comp Metabolic Yzb324 BUN 23 mg/dL 05/28/2018 Comp Metabolic Aza280 B/C Ratio 23.5 Ratio 05/28/2018 Comp Metabolic Opi745 CALCIUM 9.5 mg/dL 05/28/2018 Comp Metabolic Nuh838 ALK PHOS 46 U/L 05/28/2018 Comp Metabolic Dko128 AST(SGOT) 24 U/L 05/28/2018 Comp Metabolic Emp169 ALT(SGPT) 51 U/L 05/28/2018 Comp Metabolic Etk345 BILI T 0.7 mg/dL 05/28/2018 Comp Metabolic Nio365 ALBUMIN 4.6 g/dL 05/28/2018 Comp Metabolic Bib110 TPRO 6.7 g/dL 05/28/2018 Comp Metabolic Bqu027 GLOB 2.2 g/dL 05/28/2018 Comp Metabolic Xng143 A/G Ratio 2.1 Ratio 05/28/2018 Comp Metabolic Mxb316 Osmo 283 mOsmo 05/28/2018 Tsh Ord6 TSH (3rd IS) 2.35 uIU/mL 05/28/2018 Cbc With Differential Ord2 WBC 5.82 K/ul 05/28/2018 Cbc With Differential Ord2 RBC 4.53 M/ul 05/28/2018 Cbc With Differential Ord2 HGB 13.9 g/dl 05/28/2018 Cbc With Differential Ord2 HCT 43.0 % 05/28/2018 Cbc With Differential Ord2 Neut% 70.1 % 05/28/2018 Cbc With Differential Ord2 MCV 94.9 fl 05/28/2018 Cbc With Differential Ord2 Lymph% 15.1 % 05/28/2018 Cbc With Differential Ord2 MCH 30.7 pg 05/28/2018 Cbc With Differential Ord2 [place]% 11.2 % 05/28/2018 Cbc With Differential Ord2 MCHC 32.3 pg 05/28/2018 Cbc With Differential Ord2 Eos% 3.1 % 05/28/2018 Cbc With Differential Ord2 PLT 208 K/ul 05/28/2018 Cbc With Differential Ord2 Baso% 0.5 % 05/28/2018 Cbc With Differential Ord2 RDW 14.3 % 05/28/2018 Cbc With Differential Ord2 Neut ABS# 4.08 K/ul 05/28/2018 Cbc With Differential Ord2 Lymph ABS# 0.88 K/ul 05/28/2018 Cbc With Differential Ord2 [place] ABS# 0.7 K/ul 05/28/2018 Cbc With Differential Ord2 Eos ABS# 0.2 K/ul 05/28/2018 Cbc With Differential Ord2 Baso ABS# 0.0 K/ul 05/28/2018 Hepatitis C Antibody With Reflex For Hcv Antibody Verificat 916170 HEPATITIS C ANTIBODY NEGATIVE 07/19/2016 Lipid Ord30 CHOL 180 mg/dL 07/18/2016 Lipid Ord30 HDL 56.0 mg/dl 07/18/2016 Lipid Ord30 TRIG 153 mg/dL 07/18/2016 Lipid Ord30 LDL 93 mg/dL 07/18/2016 Lipid Ord30 C/HDL 3.2 Ratio 07/18/2016 Comp Metabolic Koe893 NA 136 mEq/L 07/18/2016 Comp Metabolic Ydi430 K 4.3 mEq/L 07/18/2016 Comp Metabolic Ykj985 CL 100 mEq/L 07/18/2016 Comp Metabolic Vmx357 CO2 30.0 mEq/L 07/18/2016 Comp Metabolic Qvr048 ANION GAP 10 07/18/2016 Comp Metabolic Ypc846 GLUCOSE 104 mg/dL 07/18/2016 Comp Metabolic Vwp798 Creat 1.0 mg/dL 07/18/2016 Comp Metabolic Sbr304 eGFR 81 ml/min/1.73m2 07/18/2016 Comp Metabolic Dzb043 BUN 21 mg/dL 07/18/2016 Comp Metabolic Puq876 B/C Ratio 20.8 Ratio 07/18/2016 Comp Metabolic Orn485 CALCIUM 9.5 mg/dL 07/18/2016 Comp Metabolic Wny524 ALK PHOS 45 U/L 07/18/2016 Comp Metabolic Lto633 AST(SGOT) 26 U/L 07/18/2016 Comp Metabolic Pav721 ALT(SGPT) 52 U/L 07/18/2016 Comp Metabolic Wwn880 BILI T 0.8 mg/dL 07/18/2016 Comp Metabolic Qpz150 ALBUMIN 4.7 g/dL 07/18/2016 Comp Metabolic Pvh311 TPRO 6.9 g/dL 07/18/2016 Comp Metabolic Esh676 GLOB 2.2 g/dL 07/18/2016 Comp Metabolic Bmf918 A/G Ratio 2.2 Ratio 07/18/2016 Comp Metabolic Opo745 Osmo 275 mOsmo 07/18/2016 Cbc With Differential Ord2 WBC 4.66 K/ul 07/18/2016 Cbc With Differential Ord2 RBC 4.51 M/ul 07/18/2016 Cbc With Differential Ord2 HGB 14.2 g/dl 07/18/2016 Cbc With Differential Ord2 HCT 42.4 % 07/18/2016 Cbc With Differential Ord2 Neut% 70.6 % 07/18/2016 Cbc With Differential Ord2 MCV 94.0 fl 07/18/2016 Cbc With Differential Ord2 Lymph% 14.8 % 07/18/2016 Cbc With Differential Ord2 MCH 31.5 pg 07/18/2016 Cbc With Differential Ord2 [place]% 11.2 % 07/18/2016 Cbc With Differential Ord2 MCHC 33.5 pg 07/18/2016 Cbc With Differential Ord2 Eos% 3.2 % 07/18/2016 Cbc With Differential Ord2 PLT 191 K/ul 07/18/2016 Cbc With Differential Ord2 Baso% 0.2 % 07/18/2016 Cbc With Differential Ord2 RDW 14.4 % 07/18/2016 Cbc With Differential Ord2 Neut ABS# 3.29 K/ul 07/18/2016 Cbc With Differential Ord2 Lymph ABS# 0.69 K/ul 07/18/2016 Cbc With Differential Ord2 [place] ABS# 0.5 K/ul 07/18/2016 Cbc With Differential Ord2 Eos ABS# 0.2 K/ul 07/18/2016 Cbc With Differential Ord2 Baso ABS# 0.0 K/ul 07/18/2016 Tsh Ord6 hTSH II 1.99 uIU/mL 07/18/2016 Total Psa Ord10 PSA 0.75 ng/mL 07/18/2016 %Hba1C Wqh243 % HbA1c 79828-5 5.8 % 07/18/2016 %Hba1C Ohh858 Gluc Ave 120 mg/dL 07/18/2016 Review of Systems System Result Effective Dates Constitutional No recent illness 2017 Constitutional No chills 05/24/2018 Constitutional No diaphoresis 05/24/2018 Constitutional No fever 05/24/2018 Eyes No eye erythema 05/24/2018 Eyes No vision change 05/24/2018 Ears/Nose/Throat/Neck No nasal allergies 05/24/2018 Ears/Nose/Throat/Neck No nasal discharge 05/24/2018 Cardiovascular No chest pain/pressure 11/2017 Cardiovascular No dyspnea 05/24/2018 Cardiovascular No edema 05/24/2018 Respiratory No chest congestion 2017 Respiratory No cough 05/24/2018 Gastrointestinal No abdominal pain 2017 Gastrointestinal constipation 05/24/2018 Gastrointestinal No diarrhea 05/24/2018 Musculoskeletal joint complaint 2017 Dermatologic No rash 05/24/2018 Dermatologic No sores 05/24/2018 Neurologic No alteration of consciousness 05/24/2018 Neurologic No mental status change 2017 Neurologic paresthesia 05/24/2018 Musculoskeletal back pain 05/24/2018 Eyes No vision change 10/20/2017 Ears/Nose/Throat/Neck No nasal allergies 10/20/2017 Ears/Nose/Throat/Neck No nasal discharge 10/20/2017 Cardiovascular No chest pain/pressure 09/2017 Cardiovascular No dyspnea 10/20/2017 Cardiovascular No edema 10/20/2017 Respiratory No chest congestion 2017 Respiratory No cough 10/20/2017 Gastrointestinal No abdominal pain 2017 Gastrointestinal No diarrhea 10/20/2017 Musculoskeletal joint complaint 2017 Dermatologic No rash 10/20/2017 Dermatologic No sores 10/20/2017 Neurologic paresthesia 10/20/2017 Constitutional No recent illness 2017 Constitutional No chills 10/20/2017 Constitutional No diaphoresis 10/20/2017 Constitutional No fever 10/20/2017 Eyes No eye erythema 10/20/2017 Gastrointestinal constipation 10/20/2017 Neurologic No alteration of consciousness 10/20/2017 Neurologic No mental status change 2017 Constitutional recent illness 03/20/2017 Constitutional No chills 03/20/2017 Constitutional No diaphoresis 03/20/2017 Constitutional No fatigue 03/20/2017 Constitutional No fever 03/20/2017 Eyes No eye erythema 03/20/2017 Eyes No eye discharge 03/20/2017 Eyes No eye erythema 03/20/2017 Eyes No eye pain 03/20/2017 Ears/Nose/Throat/Neck oral pain 2016 Cardiovascular No chest pain/pressure 07/2016 Cardiovascular No dyspnea 03/20/2017 Respiratory No chest congestion 2016 Respiratory No cough 03/20/2017 Gastrointestinal No abdominal pain 2016 Respiratory No dyspnea 03/20/2017 Gastrointestinal No diarrhea 03/20/2017 Neurologic No alteration of consciousness 03/20/2017 Neurologic No mental status change 2016 Constitutional recent illness 03/16/2017 Constitutional No anorexia 03/16/2017 Constitutional No night sweats 2016 Constitutional No chills 03/16/2017 Constitutional No diaphoresis 03/16/2017 Constitutional No fatigue 03/16/2017 Constitutional No fever 03/16/2017 Constitutional No insomnia 03/16/2017 Eyes No blindness 03/16/2017 Eyes No eye discharge 03/16/2017 Eyes No eye erythema 03/16/2017 Eyes No eye pain 03/16/2017 Ears/Nose/Throat/Neck No dizziness 2016 Ears/Nose/Throat/Neck No headache 2016 Cardiovascular No chest pain/pressure Cardiovascular No dyspnea 03/16/2017 Cardiovascular No edema 03/16/2017 Cardiovascular No exercise intolerance Respiratory No chest congestion 2016 Respiratory No chest tightness 2016 Respiratory No cigarette smoking 2016 Respiratory No cough 03/16/2017 Gastrointestinal No abdominal pain 2016 Gastrointestinal constipation 03/16/2017 Gastrointestinal No diarrhea 03/16/2017 Gastrointestinal No nausea 03/16/2017 Gastrointestinal No vomiting 03/16/2017 Genitourinary/Nephrology No anuria/oliguria 03/16/2017 Genitourinary/Nephrology No dysuria 03/16 Musculoskeletal stiffness 03/16/2017 Musculoskeletal back pain 03/16/2017 Musculoskeletal sciatica 03/16/2017 Dermatologic No rash 03/16/2017 Dermatologic No sores 03/16/2017 Psychiatric No anxiety 03/16/2017 Psychiatric No depression 03/16/2017 Ears/Nose/Throat/Neck neck pain 2016 Ears/Nose/Throat/Neck neck swelling 03/16 Ears/Nose/Throat/Neck oral pain 2016 Constitutional recent illness 03/10/2017 Constitutional anorexia 03/10/2017 Constitutional No night sweats 2016 Constitutional No chills 03/10/2017 Constitutional No diaphoresis 03/10/2017 Constitutional fatigue 03/10/2017 Constitutional No fever 03/10/2017 Constitutional No insomnia 03/10/2017 Constitutional No malaise 03/10/2017 Constitutional No weight loss 03/10/2017 Constitutional No weight gain 03/10/2017 Ears/Nose/Throat/Neck oral pain 2016 Respiratory No dyspnea 03/10/2017 Ears/Nose/Throat/Neck No headache 2016 Ears/Nose/Throat/Neck No otalgia 2016 Ears/Nose/Throat/Neck No sore throat Ears/Nose/Throat/Neck neck pain 2016 Ears/Nose/Throat/Neck neck swelling 03/10 Constitutional No recent illness 2016 Constitutional No anorexia 11/16/2016 Constitutional No night sweats 2016 Constitutional No chills 11/16/2016 Constitutional No diaphoresis 11/16/2016 Constitutional No fatigue 11/16/2016 Constitutional No fever 11/16/2016 Constitutional No insomnia 11/16/2016 Eyes No blindness 11/16/2016 Eyes No eye discharge 11/16/2016 Eyes No eye erythema 11/16/2016 Eyes No eye pain 11/16/2016 Ears/Nose/Throat/Neck No dizziness 2016 Ears/Nose/Throat/Neck No headache 2016 Cardiovascular No chest pain/pressure Cardiovascular No dyspnea 11/16/2016 Cardiovascular No edema 11/16/2016 Cardiovascular No exercise intolerance Respiratory No chest congestion 2016 Respiratory No chest tightness 2016 Respiratory No cigarette smoking 2016 Respiratory No cough 11/16/2016 Gastrointestinal No abdominal pain 2016 Gastrointestinal constipation 11/16/2016 Gastrointestinal No diarrhea 11/16/2016 Gastrointestinal No nausea 11/16/2016 Gastrointestinal No vomiting 11/16/2016 Genitourinary/Nephrology No anuria/oliguria 11/16/2016 Genitourinary/Nephrology No dysuria 11/16 Musculoskeletal stiffness 11/16/2016 Dermatologic No rash 11/16/2016 Dermatologic No sores 11/16/2016 Psychiatric No anxiety 11/16/2016 Psychiatric No depression 11/16/2016 Musculoskeletal back pain 11/16/2016 Musculoskeletal sciatica 11/16/2016 Constitutional No recent illness 2016 Constitutional No anorexia 07/15/2016 Constitutional No night sweats 2016 Constitutional No chills 07/15/2016 Constitutional No diaphoresis 07/15/2016 Constitutional No fatigue 07/15/2016 Constitutional No fever 07/15/2016 Constitutional No malaise 07/15/2016 Constitutional No insomnia 07/15/2016 Constitutional No weight loss 07/15/2016 Constitutional No weight gain 07/15/2016 Constitutional No obesity 07/15/2016 Eyes No blindness 07/15/2016 Eyes No eye discharge 07/15/2016 Eyes No eye erythema 07/15/2016 Eyes No eye pain 07/15/2016 Ears/Nose/Throat/Neck No dizziness 2016 Ears/Nose/Throat/Neck No headache 2016 Cardiovascular No chest pain/pressure Cardiovascular No dyspnea 07/15/2016 Cardiovascular No exercise intolerance Cardiovascular No edema 07/15/2016 Respiratory No cough 07/15/2016 Respiratory No cigarette smoking 2016 Respiratory No chest tightness 2016 Respiratory No chest congestion 2016 Gastrointestinal No abdominal pain 2016 Gastrointestinal constipation 07/15/2016 Gastrointestinal No diarrhea 07/15/2016 Gastrointestinal No nausea 07/15/2016 Gastrointestinal No vomiting 07/15/2016 Genitourinary/Nephrology No anuria/oliguria 07/15/2016 Genitourinary/Nephrology No dysuria 07/15 Musculoskeletal stiffness 07/15/2016 Dermatologic No rash 07/15/2016 Dermatologic No sores 07/15/2016 Psychiatric No anxiety 07/15/2016 Psychiatric No depression 07/15/2016 Hematologic/Lymphatic No abnormal ecchymoses 07/15/2016 Hematologic/Lymphatic No abnormal bleeding and bruising 07/15/2016 Constitutional No recent illness 2015 Constitutional No anorexia 03/08/2016 Constitutional No night sweats 2015 Constitutional No chills 03/08/2016 Constitutional No diaphoresis 03/08/2016 Constitutional No fatigue 03/08/2016 Constitutional No fever 03/08/2016 Constitutional No insomnia 03/08/2016 Constitutional No malaise 03/08/2016 Constitutional No weight loss 03/08/2016 Constitutional No weight gain 03/08/2016 Constitutional No obesity 03/08/2016 Eyes No vision change 03/08/2016 Ears/Nose/Throat/Neck No nasal allergies 03/08/2016 Ears/Nose/Throat/Neck No nasal discharge 03/08/2016 Cardiovascular No chest pain/pressure Cardiovascular No dyspnea 03/08/2016 Cardiovascular No edema 03/08/2016 Respiratory No chest congestion 2015 Respiratory No chest tightness 2015 Respiratory No cigarette smoking 2015 Respiratory No cough 03/08/2016 Gastrointestinal No abdominal pain 2015 Gastrointestinal No diarrhea 03/08/2016 Genitourinary/Nephrology No dysuria 03/08 Musculoskeletal joint complaint 2015 Musculoskeletal No muscle weakness 2015 Musculoskeletal No myalgias 03/08/2016 Dermatologic No rash 03/08/2016 Dermatologic No sores 03/08/2016 Neurologic paresthesia 03/08/2016 Psychiatric No anxiety 03/08/2016 Psychiatric No depression 03/08/2016 Constitutional No recent illness 2015 Constitutional No anorexia 11/26/2015 Constitutional No night sweats 2015 Constitutional No chills 11/26/2015 Constitutional No diaphoresis 11/26/2015 Constitutional No fatigue 11/26/2015 Constitutional No fever 11/26/2015 Constitutional No insomnia 11/26/2015 Constitutional No malaise 11/26/2015 Constitutional No weight loss 11/26/2015 Constitutional No weight gain 11/26/2015 Constitutional No obesity 11/26/2015 Eyes No vision change 11/26/2015 Ears/Nose/Throat/Neck No nasal allergies 11/26/2015 Ears/Nose/Throat/Neck No nasal discharge 11/26/2015 Cardiovascular No chest pain/pressure 02/2016 Cardiovascular No dyspnea 11/26/2015 Cardiovascular No edema 11/26/2015 Respiratory No chest congestion 2015 Respiratory No chest tightness 2015 Respiratory No cigarette smoking 2015 Respiratory No cough 11/26/2015 Gastrointestinal constipation 11/26/2015 Gastrointestinal No diarrhea 11/26/2015 Gastrointestinal No abdominal pain 2015 Genitourinary/Nephrology No dysuria 11/25 Musculoskeletal joint complaint 2015 Musculoskeletal No muscle weakness 2015 Musculoskeletal No myalgias 11/26/2015 Dermatologic No rash 11/26/2015 Dermatologic No sores 11/26/2015 Psychiatric No depression 11/26/2015 Psychiatric No anxiety 11/26/2015 Neurologic paresthesia 11/26/2015 Constitutional No recent illness 2015 Constitutional No anorexia 08/06/2015 Constitutional No night sweats 2015 Constitutional No chills 08/06/2015 Constitutional No diaphoresis 08/06/2015 Constitutional No fatigue 08/06/2015 Constitutional No fever 08/06/2015 Constitutional No insomnia 08/06/2015 Constitutional No malaise 08/06/2015 Constitutional No weight loss 08/06/2015 Constitutional No weight gain 08/06/2015 Constitutional No obesity 08/06/2015 Musculoskeletal neck pain 08/06/2015 Eyes No eye discharge 08/06/2015 Eyes No eye erythema 08/06/2015 Ears/Nose/Throat/Neck No dizziness 2015 Ears/Nose/Throat/Neck No headache 2015 Cardiovascular No chest pain/pressure Respiratory No cough 08/06/2015 Gastrointestinal No abdominal pain 2015 Gastrointestinal No constipation 2015 Gastrointestinal No diarrhea 08/06/2015 Dermatologic No rash 08/06/2015 Dermatologic No sores 08/06/2015 Neurologic No alteration of consciousness 08/06/2015 Constitutional No recent illness 2014 Constitutional No chills 05/04/2015 Constitutional No diaphoresis 05/04/2015 Constitutional fatigue 05/04/2015 Constitutional No insomnia 05/04/2015 Eyes No blindness 05/04/2015 Eyes No vision change 05/04/2015 Ears/Nose/Throat/Neck No dizziness 2014 Ears/Nose/Throat/Neck No sore throat Cardiovascular No chest pain/pressure Cardiovascular No edema 05/04/2015 Cardiovascular No exercise intolerance Cardiovascular No fatigue 05/04/2015 Cardiovascular No palpitations 2014 Cardiovascular No syncope 05/04/2015 Respiratory No chest congestion 2014 Respiratory No cough 05/04/2015 Gastrointestinal No abdominal pain 2014 Gastrointestinal No constipation 2014 Gastrointestinal No diarrhea 05/04/2015 Gastrointestinal No nausea 05/04/2015 Gastrointestinal No vomiting 05/04/2015 Genitourinary/Nephrology No dysuria 05/04 Genitourinary/Nephrology impotence 2014 Genitourinary/Nephrology No nocturia Genitourinary/Nephrology No urinary incontinence 05/04/2015 Musculoskeletal stiffness 05/04/2015 Musculoskeletal arthralgia(s) 05/04/2015 Musculoskeletal joint complaint 2014 Neurologic No alteration of consciousness 05/04/2015 Neurologic No mental status change 2014 Psychiatric No anxiety 05/04/2015 Psychiatric No depression 05/04/2015 Constitutional No chills 11/06/2014 Constitutional No diaphoresis 11/06/2014 Constitutional No fatigue 11/06/2014 Constitutional No fever 11/06/2014 Constitutional No insomnia 11/06/2014 Constitutional No malaise 11/06/2014 Constitutional No recent illness 2014 Ears/Nose/Throat/Neck No dizziness 2014 Ears/Nose/Throat/Neck No sore throat Cardiovascular No chest pain/pressure Cardiovascular No edema 11/06/2014 Cardiovascular No exercise intolerance Cardiovascular No fatigue 11/06/2014 Cardiovascular No palpitations 2014 Cardiovascular No syncope 11/06/2014 Respiratory No chest congestion 2014 Respiratory No cough 11/06/2014 Gastrointestinal No abdominal pain 2014 Gastrointestinal No constipation 2014 Gastrointestinal No diarrhea 11/06/2014 Gastrointestinal No nausea 11/06/2014 Gastrointestinal No vomiting 11/06/2014 Dermatologic No rash 11/06/2014 Neurologic No alteration of consciousness 11/06/2014 Neurologic No mental status change 2014 Musculoskeletal stiffness 11/06/2014 Musculoskeletal arthralgia(s) 11/06/2014 Musculoskeletal joint complaint 2014 Genitourinary/Nephrology No dysuria 11/06 Genitourinary/Nephrology No nocturia Genitourinary/Nephrology No urinary incontinence 11/06/2014 Eyes No blindness 11/06/2014 Eyes No vision change 11/06/2014 Genitourinary/Nephrology impotence 2014 Psychiatric No anxiety 11/06/2014 Psychiatric No depression 11/06/2014 Physical Exam Exam Name System Name Item Name Status Result Effective Dates Notes Full Exam - General 1994 Constitutional general appearance Overall: well developed 05/24/2018 None Full Exam - General 1994 Constitutional general appearance Overall: in no acute distress 05/24/2018 None Full Exam - General 1994 Constitutional general appearance Overall: well nourished 05/24/2018 None Full Exam - General 1994 Eyes conjunctiva /eyelids Overall: conjunctiva clear 05/24/2018 None Full Exam - General 1994 Eyes conjunctiva /eyelids Overall: cornea clear 05/24/2018 None Full Exam - General 1994 Eyes conjunctiva /eyelids Overall: eyelids normal 05/24/2018 None Full Exam - General 1994 Ears/Nose/Throat lips/teeth/gingiva Overall: benign lips 05/24/2018 None Full Exam - General 1994 Ears/Nose/Throat oral cavity/pharynx/larynx Overall: oral mucosa clear 05/24/2018 None Full Exam - General 1994 Respiratory auscultation Overall: breath sounds clear bilaterally 05/24/2018 None Full Exam - General 1994 Respiratory respiratory effort/rhythm Overall: no retractions 05/24/2018 None Full Exam - General 1994 Respiratory respiratory effort/rhythm Overall: normal rate 05/24/2018 None Full Exam - General 1994 Cardiovascular extremities Overall: no clubbing 05/24/2018 None Full Exam - General 1994 Cardiovascular auscultation of heart Overall: regular rate 05/24/2018 None Full Exam - General 1994 Cardiovascular auscultation of heart Overall: normal heart sounds 05/24/2018 None Full Exam - General 1994 Cardiovascular auscultation of heart Overall: no murmurs 05/24/2018 None Full Exam - General 1994 Musculoskeletal lower extremity ROM - knee: crepitus 05/24/2018 None Full Exam - General 1994 Musculoskeletal lower extremity ROM - knee: pain with flexion 05/24/2018 None Full Exam - General 1994 Musculoskeletal gait and station Overall: normal gait 05/24/2018 None Full Exam - General 1994 Musculoskeletal gait and station Overall: normal station 05/24/2018 None Full Exam - General 1994 Musculoskeletal head and neck Overall: head atraumatic 05/24/2018 None Full Exam - General 1994 Neurologic cranial nerves Overall: crainial nerves 2 - 12 grossly intact 05/24/2018 None Full Exam - General 1994 Psychiatric orientation/consciousness Overall: oriented to person, place and time 05/24/2018 None Full Exam - General 1994 Psychiatric mood and affect Overall: normal mood and affect 05/24/2018 None Full Exam - General 1994 Psychiatric appearance Overall: well-groomed, good eye contact 05/24/2018 None Full Exam - General 1994 Constitutional general appearance Overall: well developed 10/20/2017 None Full Exam - General 1994 Constitutional general appearance Overall: in no acute distress 10/20/2017 None Full Exam - General 1994 Constitutional general appearance Overall: well nourished 10/20/2017 None Full Exam - General 1994 Respiratory auscultation Overall: breath sounds clear bilaterally 10/20/2017 None Full Exam - General 1994 Respiratory respiratory effort/rhythm Overall: no retractions 10/20/2017 None Full Exam - General 1994 Respiratory respiratory effort/rhythm Overall: normal rate 10/20/2017 None Full Exam - General 1994 Cardiovascular extremities Overall: no clubbing 10/20/2017 None Full Exam - General 1994 Cardiovascular auscultation of heart Overall: regular rate 10/20/2017 None Full Exam - General 1994 Cardiovascular auscultation of heart Overall: normal heart sounds 10/20/2017 None Full Exam - General 1994 Cardiovascular auscultation of heart Overall: no murmurs 10/20/2017 None Full Exam - General 1994 Musculoskeletal gait and station Overall: normal gait 10/20/2017 None Full Exam - General 1994 Musculoskeletal gait and station Overall: normal station 10/20/2017 None Full Exam - General 1994 Psychiatric orientation/consciousness Overall: oriented to person, place and time 10/20/2017 None Full Exam - General 1994 Psychiatric mood and affect Overall: normal mood and affect 10/20/2017 None Full Exam - General 1994 Psychiatric appearance Overall: well-groomed, good eye contact 10/20/2017 None Full Exam - General 1994 Eyes conjunctiva /eyelids Overall: conjunctiva clear 10/20/2017 None Full Exam - General 1994 Eyes conjunctiva /eyelids Overall: cornea clear 10/20/2017 None Full Exam - General 1994 Eyes conjunctiva /eyelids Overall: eyelids normal 10/20/2017 None Full Exam - General 1994 Ears/Nose/Throat lips/teeth/gingiva Overall: benign lips 10/20/2017 None Full Exam - General 1994 Ears/Nose/Throat oral cavity/pharynx/larynx Overall: oral mucosa clear 10/20/2017 None Full Exam - General 1994 Musculoskeletal head and neck Overall: head atraumatic 10/20/2017 None Full Exam - General 1994 Musculoskeletal lower extremity ROM - knee: crepitus 10/20/2017 None Full Exam - General 1994 Musculoskeletal lower extremity ROM - knee: pain with flexion 10/20/2017 None Full Exam - General 1994 Neurologic cranial nerves Overall: crainial nerves 2 - 12 grossly intact 10/20/2017 None Full Exam - General 1994 Constitutional general appearance Overall: well developed 03/20/2017 None Full Exam - General 1994 Constitutional general appearance Overall: in no acute distress 03/20/2017 None Full Exam - General 1994 Constitutional general appearance Overall: well nourished 03/20/2017 None Full Exam - General 1994 Ears/Nose/Throat lips/teeth/gingiva Teeth: dental caries 03/20/2017 dental abscess left lower molar with erythema and swelling of gums -facial swelling from mid cheek to jaw line Full Exam - General 1994 Respiratory auscultation Overall: breath sounds clear bilaterally 03/20/2017 None Full Exam - General 1994 Respiratory respiratory effort/rhythm Overall: no retractions 03/20/2017 None Full Exam - General 1994 Respiratory respiratory effort/rhythm Overall: normal rate 03/20/2017 None Full Exam - General 1994 Cardiovascular extremities Overall: no clubbing 03/20/2017 None Full Exam - General 1994 Cardiovascular auscultation of heart Overall: regular rate 03/20/2017 None Full Exam - General 1994 Cardiovascular auscultation of heart Overall: normal heart sounds 03/20/2017 None Full Exam - General 1994 Musculoskeletal spine, ribs and pelvis Posture: lordosis 03/20/2017 None Full Exam - General 1994 Musculoskeletal gait and station Overall: normal gait 03/20/2017 None Full Exam - General 1994 Musculoskeletal gait and station Overall: normal station 03/20/2017 None Full Exam - General 1994 Integument inspection of skin Overall: no rash, lesions 03/20/2017 None Full Exam - General 1994 Psychiatric orientation/consciousness Overall: oriented to person, place and time 03/20/2017 None Full Exam - General 1994 Psychiatric mood and affect Overall: normal mood and affect 03/20/2017 None Full Exam - General 1994 Psychiatric appearance Overall: well-groomed, good eye contact 03/20/2017 None Full Exam - General 1994 Neurologic cranial nerves Overall: crainial nerves 2 - 12 grossly intact 03/20/2017 None Full Exam - General 1994 Constitutional general appearance Overall: well developed 03/16/2017 None Full Exam - General 1994 Constitutional general appearance Overall: in no acute distress 03/16/2017 None Full Exam - General 1994 Constitutional general appearance Overall: well nourished 03/16/2017 None Full Exam - General 1994 Ears/Nose/Throat otoscopic exam Overall: external auditory canals clear 03/16/2017 None Full Exam - General 1994 Ears/Nose/Throat otoscopic exam Overall: tympanic membranes clear 03/16/2017 None Full Exam - General 1994 Respiratory auscultation Overall: breath sounds clear bilaterally 03/16/2017 None Full Exam - General 1994 Respiratory respiratory effort/rhythm Overall: no retractions 03/16/2017 None Full Exam - General 1994 Respiratory respiratory effort/rhythm Overall: normal rate 03/16/2017 None Full Exam - General 1994 Cardiovascular extremities Overall: no clubbing 03/16/2017 None Full Exam - General 1994 Cardiovascular auscultation of heart Overall: regular rate 03/16/2017 None Full Exam - General 1994 Cardiovascular auscultation of heart Overall: normal heart sounds 03/16/2017 None Full Exam - General 1994 Cardiovascular auscultation of heart Overall: no murmurs 03/16/2017 None Full Exam - General 1994 Abdomen abdominal exam Overall: no tenderness 03/16/2017 None Full Exam - General 1994 Abdomen abdominal exam Overall: normal bowel sounds 03/16/2017 None Full Exam - General 1994 Abdomen abdominal exam Contour: rounded 03/16/2017 None Full Exam - General 1994 Musculoskeletal spine, ribs and pelvis Posture: lordosis 03/16/2017 None Full Exam - General 1994 Musculoskeletal spine, ribs and pelvis Sacroiliac joints: tender right sacroiliac joint 03/16/2017 None Full Exam - General 1994 Musculoskeletal spine, ribs and pelvis Sacroiliac joints: tender left sacroiliac joint 03/16/2017 None Full Exam - General 1994 Musculoskeletal gait and station Overall: normal gait 03/16/2017 None Full Exam - General 1994 Musculoskeletal gait and station Overall: normal station 03/16/2017 None Full Exam - General 1994 Integument inspection of skin Overall: no rash, lesions 03/16/2017 None Full Exam - General 1994 Psychiatric orientation/consciousness Overall: oriented to person, place and time 03/16/2017 None Full Exam - General 1994 Psychiatric mood and affect Overall: normal mood and affect 03/16/2017 None Full Exam - General 1994 Psychiatric appearance Overall: well-groomed, good eye contact 03/16/2017 None Full Exam - General 1994 Ears/Nose/Throat lips/teeth/gingiva Teeth: dental caries 03/16/2017 dental abscess left lower molar with erythema and swelling of gums -facial swelling from mid cheek to jaw line Full Exam - General 1994 Lymphatic neck nodes Overall: shotty lymphadenopathy 03/16/2017 on left Full Exam - General 1994 Constitutional general appearance Overall: well developed 03/10/2017 None Full Exam - General 1994 Constitutional general appearance Overall: in no acute distress 03/10/2017 None Full Exam - General 1994 Constitutional general appearance Overall: well nourished 03/10/2017 None Full Exam - General 1994 Respiratory auscultation Overall: breath sounds clear bilaterally 03/10/2017 None Full Exam - General 1994 Respiratory respiratory effort/rhythm Overall: no retractions 03/10/2017 None Full Exam - General 1994 Respiratory respiratory effort/rhythm Overall: normal rate 03/10/2017 None Full Exam - General 1994 Cardiovascular extremities Overall: no clubbing 03/10/2017 None Full Exam - General 1994 Cardiovascular auscultation of heart Overall: regular rate 03/10/2017 None Full Exam - General 1994 Cardiovascular auscultation of heart Overall: normal heart sounds 03/10/2017 None Full Exam - General 1994 Cardiovascular auscultation of heart Overall: no murmurs 03/10/2017 None Full Exam - General 1994 Psychiatric orientation/consciousness Overall: oriented to person, place and time 03/10/2017 None Full Exam - General 1994 Ears/Nose/Throat lips/teeth/gingiva Teeth: dental caries 03/10/2017 dental abscess left lower molar with erythema and swelling of gums -facial swelling from mid cheek to jaw line Full Exam - General 1994 Constitutional general appearance Overall: well developed 11/16/2016 None Full Exam - General 1994 Constitutional general appearance Overall: in no acute distress 11/16/2016 None Full Exam - General 1994 Constitutional general appearance Overall: well nourished 11/16/2016 None Full Exam - General 1994 Ears/Nose/Throat otoscopic exam Overall: external auditory canals clear 11/16/2016 None Full Exam - General 1994 Ears/Nose/Throat otoscopic exam Overall: tympanic membranes clear 11/16/2016 None Full Exam - General 1994 Respiratory auscultation Overall: breath sounds clear bilaterally 11/16/2016 None Full Exam - General 1994 Respiratory respiratory effort/rhythm Overall: no retractions 11/16/2016 None Full Exam - General 1994 Respiratory respiratory effort/rhythm Overall: normal rate 11/16/2016 None Full Exam - General 1994 Cardiovascular extremities Overall: no clubbing 11/16/2016 None Full Exam - General 1994 Cardiovascular auscultation of heart Overall: regular rate 11/16/2016 None Full Exam - General 1994 Cardiovascular auscultation of heart Overall: normal heart sounds 11/16/2016 None Full Exam - General 1994 Cardiovascular auscultation of heart Overall: no murmurs 11/16/2016 None Full Exam - General 1994 Abdomen abdominal exam Overall: no tenderness 11/16/2016 None Full Exam - General 1994 Abdomen abdominal exam Overall: normal bowel sounds 11/16/2016 None Full Exam - General 1994 Abdomen abdominal exam Contour: rounded 11/16/2016 None Full Exam - General 1994 Musculoskeletal gait and station Overall: normal gait 11/16/2016 None Full Exam - General 1994 Musculoskeletal gait and station Overall: normal station 11/16/2016 None Full Exam - General 1994 Integument inspection of skin Overall: no rash, lesions 11/16/2016 None Full Exam - General 1994 Psychiatric orientation/consciousness Overall: oriented to person, place and time 11/16/2016 None Full Exam - General 1994 Psychiatric mood and affect Overall: normal mood and affect 11/16/2016 None Full Exam - General 1994 Psychiatric appearance Overall: well-groomed, good eye contact 11/16/2016 None Full Exam - General 1994 Musculoskeletal spine, ribs and pelvis Sacroiliac joints: tender right sacroiliac joint 11/16/2016 None Full Exam - General 1994 Musculoskeletal spine, ribs and pelvis Sacroiliac joints: tender left sacroiliac joint 11/16/2016 None Full Exam - General 1994 Musculoskeletal spine, ribs and pelvis Posture: lordosis 11/16/2016 None Full Exam - General 1994 Constitutional general appearance Overall: well developed 07/15/2016 None Full Exam - General 1994 Constitutional general appearance Overall: in no acute distress 07/15/2016 None Full Exam - General 1994 Constitutional general appearance Overall: well nourished 07/15/2016 None Full Exam - General 1994 Respiratory auscultation Overall: breath sounds clear bilaterally 07/15/2016 None Full Exam - General 1994 Respiratory respiratory effort/rhythm Overall: no retractions 07/15/2016 None Full Exam - General 1994 Respiratory respiratory effort/rhythm Overall: normal rate 07/15/2016 None Full Exam - General 1994 Cardiovascular extremities Overall: no clubbing 07/15/2016 None Full Exam - General 1994 Cardiovascular auscultation of heart Overall: regular rate 07/15/2016 None Full Exam - General 1994 Cardiovascular auscultation of heart Overall: normal heart sounds 07/15/2016 None Full Exam - General 1994 Cardiovascular auscultation of heart Overall: no murmurs 07/15/2016 None Full Exam - General 1994 Musculoskeletal gait and station Overall: normal gait 07/15/2016 None Full Exam - General 1994 Musculoskeletal gait and station Overall: normal station 07/15/2016 None Full Exam - General 1994 Integument inspection of skin Overall: no rash, lesions 07/15/2016 None Full Exam - General 1994 Psychiatric orientation/consciousness Overall: oriented to person, place and time 07/15/2016 None Full Exam - General 1994 Psychiatric mood and affect Overall: normal mood and affect 07/15/2016 None Full Exam - General 1994 Psychiatric appearance Overall: well-groomed, good eye contact 07/15/2016 None Full Exam - General 1994 Ears/Nose/Throat otoscopic exam Overall: tympanic membranes clear 07/15/2016 None Full Exam - General 1994 Ears/Nose/Throat otoscopic exam Overall: external auditory canals clear 07/15/2016 None Full Exam - General 1994 Abdomen abdominal exam Overall: no tenderness 07/15/2016 None Full Exam - General 1994 Abdomen abdominal exam Overall: normal bowel sounds 07/15/2016 None Full Exam - General 1994 Abdomen abdominal exam Contour: rounded 07/15/2016 None Full Exam - General 1994 Constitutional general appearance Overall: well developed 03/08/2016 None Full Exam - General 1994 Constitutional general appearance Overall: in no acute distress 03/08/2016 None Full Exam - General 1994 Constitutional general appearance Overall: well nourished 03/08/2016 None Full Exam - General 1994 Respiratory auscultation Overall: breath sounds clear bilaterally 03/08/2016 None Full Exam - General 1994 Respiratory respiratory effort/rhythm Overall: no retractions 03/08/2016 None Full Exam - General 1994 Respiratory respiratory effort/rhythm Overall: normal rate 03/08/2016 None Full Exam - General 1994 Cardiovascular extremities Overall: no clubbing 03/08/2016 None Full Exam - General 1994 Cardiovascular auscultation of heart Overall: regular rate 03/08/2016 None Full Exam - General 1994 Cardiovascular auscultation of heart Overall: normal heart sounds 03/08/2016 None Full Exam - General 1994 Cardiovascular auscultation of heart Overall: no murmurs 03/08/2016 None Full Exam - General 1994 Musculoskeletal gait and station Overall: normal gait 03/08/2016 None Full Exam - General 1994 Musculoskeletal gait and station Overall: normal station 03/08/2016 None Full Exam - General 1994 Integument inspection of skin Overall: no rash, lesions 03/08/2016 None Full Exam - General 1994 Psychiatric orientation/consciousness Overall: oriented to person, place and time 03/08/2016 None Full Exam - General 1994 Psychiatric mood and affect Overall: normal mood and affect 03/08/2016 None Full Exam - General 1994 Psychiatric appearance Overall: well-groomed, good eye contact 03/08/2016 None Full Exam - General 1994 Constitutional general appearance Overall: well nourished 11/26/2015 None Full Exam - General 1994 Constitutional general appearance Overall: well developed 11/26/2015 None Full Exam - General 1994 Constitutional general appearance Overall: in no acute distress 11/26/2015 None Full Exam - General 1994 Respiratory respiratory effort/rhythm Overall: normal rate 11/26/2015 None Full Exam - General 1994 Respiratory respiratory effort/rhythm Overall: no retractions 11/26/2015 None Full Exam - General 1994 Respiratory auscultation Overall: breath sounds clear bilaterally 11/26/2015 None Full Exam - General 1994 Cardiovascular extremities Overall: no clubbing 11/26/2015 None Full Exam - General 1994 Cardiovascular auscultation of heart Overall: regular rate 11/26/2015 None Full Exam - General 1994 Cardiovascular auscultation of heart Overall: normal heart sounds 11/26/2015 None Full Exam - General 1994 Cardiovascular auscultation of heart Overall: no murmurs 11/26/2015 None Full Exam - General 1994 Musculoskeletal gait and station Overall: normal station 11/26/2015 None Full Exam - General 1994 Musculoskeletal gait and station Overall: normal gait 11/26/2015 None Full Exam - General 1994 Integument inspection of skin Overall: no rash, lesions 11/26/2015 None Full Exam - General 1994 Psychiatric orientation/consciousness Overall: oriented to person, place and time 11/26/2015 None Full Exam - General 1994 Psychiatric mood and affect Overall: normal mood and affect 11/26/2015 None Full Exam - General 1994 Psychiatric appearance Overall: well-groomed, good eye contact 11/26/2015 None Full Exam - General 1994 Constitutional general appearance Overall: well nourished 08/06/2015 None Full Exam - General 1994 Constitutional general appearance Overall: well developed 08/06/2015 None Full Exam - General 1994 Constitutional general appearance Overall: in no acute distress 08/06/2015 None Full Exam - General 1994 Eyes conjunctiva /eyelids Overall: conjunctiva clear 08/06/2015 None Full Exam - General 1994 Eyes conjunctiva /eyelids Overall: eyelids normal 08/06/2015 None Full Exam - General 1994 Eyes conjunctiva /eyelids Overall: cornea clear 08/06/2015 None Full Exam - General 1994 Eyes pupils and irises Overall: pupils equal, round, reactive to light and accomodation 08/06/2015 None Full Exam - General 1994 Ears/Nose/Throat oral cavity/pharynx/larynx Overall: oropharyngeal mucosa clear 08/06/2015 None Full Exam - General 1994 Ears/Nose/Throat oral cavity/pharynx/larynx Overall: no masses 08/06/2015 None Full Exam - General 1994 Ears/Nose/Throat oral cavity/pharynx/larynx Overall: oral mucosa clear 08/06/2015 None Full Exam - General 1994 Ears/Nose/Throat lips/teeth/gingiva Overall: benign gingiva 08/06/2015 None Full Exam - General 1994 Ears/Nose/Throat lips/teeth/gingiva Overall: no masses 08/06/2015 None Full Exam - General 1994 Ears/Nose/Throat lips/teeth/gingiva Overall: benign lips 08/06/2015 None Full Exam - General 1994 Ears/Nose/Throat otoscopic exam Overall: tympanic membranes clear 08/06/2015 None Full Exam - General 1994 Ears/Nose/Throat otoscopic exam Overall: external auditory canals clear 08/06/2015 None Full Exam - General 1994 Respiratory respiratory effort/rhythm Overall: normal rate 08/06/2015 None Full Exam - General 1994 Respiratory respiratory effort/rhythm Overall: no retractions 08/06/2015 None Full Exam - General 1994 Respiratory auscultation Overall: breath sounds clear bilaterally 08/06/2015 None Full Exam - General 1994 Cardiovascular auscultation of heart Overall: regular rate 08/06/2015 None Full Exam - General 1994 Cardiovascular auscultation of heart Overall: normal heart sounds 08/06/2015 None Full Exam - General 1994 Cardiovascular auscultation of heart Overall: no murmurs 08/06/2015 None Full Exam - General 1994 Cardiovascular extremities Overall: no clubbing 08/06/2015 None Full Exam - General 1994 Psychiatric orientation/consciousness Overall: oriented to person, place and time 08/06/2015 None Full Exam - General 1994 Psychiatric mood and affect Overall: normal mood and affect 08/06/2015 None Full Exam - General 1994 Psychiatric appearance Overall: well-groomed, good eye contact 08/06/2015 None Full Exam - General 1994 Integument inspection of skin Overall: no rash, lesions 08/06/2015 None Full Exam - General 1994 Ears/Nose/Throat lips/teeth/gingiva Teeth: broken tooth 08/06/2015 ABSCESS Full Exam - General 1994 Musculoskeletal head and neck Cervical Spine: tender 08/06/2015 None Full Exam - General 1994 Constitutional general appearance Development: well developed 05/04/2015 None Full Exam - General 1994 Constitutional general appearance Development: appears stated age 1105/04/2015 None Full Exam - General 1994 Constitutional general appearance Hygiene/Attention to Grooming: good hygiene 05/04/2015 None Full Exam - General 1994 Eyes conjunctiva /eyelids Overall: conjunctiva clear 05/04/2015 None Full Exam - General 1994 Eyes conjunctiva /eyelids Overall: cornea clear 05/04/2015 None Full Exam - General 1994 Eyes conjunctiva /eyelids Overall: eyelids normal 05/04/2015 None Full Exam - General 1994 Eyes pupils and irises Overall: pupils equal, round, reactive to light and accomodation 05/04/2015 None Full Exam - General 1994 Ears/Nose/Throat otoscopic exam Overall: external auditory canals clear 05/04/2015 None Full Exam - General 1994 Ears/Nose/Throat otoscopic exam Overall: tympanic membranes clear 05/04/2015 None Full Exam - General 1994 Ears/Nose/Throat lips/teeth/gingiva Overall: benign lips 05/04/2015 None Full Exam - General 1994 Ears/Nose/Throat lips/teeth/gingiva Overall: normal dentition 05/04/2015 None Full Exam - General 1994 Ears/Nose/Throat oral cavity/pharynx/larynx Overall: oral mucosa clear 05/04/2015 None Full Exam - General 1994 Ears/Nose/Throat oral cavity/pharynx/larynx Overall: oropharyngeal mucosa clear 05/04/2015 None Full Exam - General 1994 Ears/Nose/Throat oral cavity/pharynx/larynx Overall: hypopharynx benign 05/04/2015 None Full Exam - General 1994 Ears/Nose/Throat oral cavity/pharynx/larynx Overall: no masses 05/04/2015 None Full Exam - General 1994 Respiratory auscultation Overall: breath sounds clear bilaterally 05/04/2015 None Full Exam - General 1994 Respiratory respiratory effort/rhythm Overall: no retractions 05/04/2015 None Full Exam - General 1994 Respiratory respiratory effort/rhythm Overall: normal rate 05/04/2015 None Full Exam - General 1994 Cardiovascular extremities Overall: no clubbing 05/04/2015 None Full Exam - General 1994 Cardiovascular auscultation of heart Overall: regular rate 05/04/2015 None Full Exam - General 1994 Cardiovascular auscultation of heart Overall: normal heart sounds 05/04/2015 None Full Exam - General 1994 Abdomen abdominal exam Overall: no tenderness 05/04/2015 None Full Exam - General 1994 Abdomen abdominal exam Overall: normal bowel sounds 05/04/2015 None Full Exam - General 1994 Musculoskeletal lower extremity ROM - knee: crepitus 05/04/2015 None Full Exam - General 1994 Integument inspection of skin Overall: few scattered moles, no gross abnormalities 05/04/2015 None Full Exam - General 1994 Neurologic deep tendon reflexes Overall: deep tendon reflexes intact 05/04/2015 None Full Exam - General 1994 Neurologic cranial nerves Overall: crainial nerves 2 - 12 grossly intact 05/04/2015 None Full Exam - General 1994 Psychiatric orientation/consciousness Overall: oriented to person, place and time 05/04/2015 None Full Exam - General 1994 Psychiatric mood and affect Overall: normal mood and affect 05/04/2015 None Full Exam - General 1994 Constitutional general appearance Development: appears stated age 0511/06/2014 None Full Exam - General 1994 Constitutional general appearance Development: well developed 11/06/2014 None Full Exam - General 1994 Constitutional general appearance Hygiene/Attention to Grooming: good hygiene 11/06/2014 None Full Exam - General 1994 Eyes conjunctiva /eyelids Overall: conjunctiva clear 11/06/2014 None Full Exam - General 1994 Eyes conjunctiva /eyelids Overall: cornea clear 11/06/2014 None Full Exam - General 1994 Eyes conjunctiva /eyelids Overall: eyelids normal 11/06/2014 None Full Exam - General 1994 Eyes pupils and irises Overall: pupils equal, round, reactive to light and accomodation 11/06/2014 None Full Exam - General 1994 Ears/Nose/Throat otoscopic exam Overall: external auditory canals clear 11/06/2014 None Full Exam - General 1994 Ears/Nose/Throat otoscopic exam Overall: tympanic membranes clear 11/06/2014 None Full Exam - General 1994 Ears/Nose/Throat lips/teeth/gingiva Overall: benign lips 11/06/2014 None Full Exam - General 1994 Ears/Nose/Throat lips/teeth/gingiva Overall: normal dentition 11/06/2014 None Full Exam - General 1994 Ears/Nose/Throat oral cavity/pharynx/larynx Overall: hypopharynx benign 11/06/2014 None Full Exam - General 1994 Ears/Nose/Throat oral cavity/pharynx/larynx Overall: no masses 11/06/2014 None Full Exam - General 1994 Ears/Nose/Throat oral cavity/pharynx/larynx Overall: oral mucosa clear 11/06/2014 None Full Exam - General 1994 Ears/Nose/Throat oral cavity/pharynx/larynx Overall: oropharyngeal mucosa clear 11/06/2014 None Full Exam - General 1994 Respiratory auscultation Overall: breath sounds clear bilaterally 11/06/2014 None Full Exam - General 1994 Respiratory respiratory effort/rhythm Overall: no retractions 11/06/2014 None Full Exam - General 1994 Respiratory respiratory effort/rhythm Overall: normal rate 11/06/2014 None Full Exam - General 1994 Cardiovascular extremities Overall: no clubbing 11/06/2014 None Full Exam - General 1994 Cardiovascular auscultation of heart Overall: normal heart sounds 11/06/2014 None Full Exam - General 1994 Cardiovascular auscultation of heart Overall: regular rate 11/06/2014 None Full Exam - General 1994 Abdomen abdominal exam Overall: no tenderness 11/06/2014 None Full Exam - General 1994 Abdomen abdominal exam Overall: normal bowel sounds 11/06/2014 None Full Exam - General 1994 Integument inspection of skin Overall: few scattered moles, no gross abnormalities 11/06/2014 None Full Exam - General 1994 Neurologic deep tendon reflexes Overall: deep tendon reflexes intact 11/06/2014 None Full Exam - General 1994 Neurologic cranial nerves Overall: crainial nerves 2 - 12 grossly intact 11/06/2014 None Full Exam - General 1994 Psychiatric orientation/consciousness Overall: oriented to person, place and time 11/06/2014 None Full Exam - General 1994 Psychiatric mood and affect Overall: normal mood and affect 11/06/2014 None Full Exam - General 1994 Musculoskeletal lower extremity ROM - knee: crepitus 11/06/2014 None Procedures Procedure Codes Date ROCEPHIN, PER 250 MG CPT-4: J0696 03/16/2017 Vital Signs Date Vital 05/24/2018 Blood Pressure 1: 146/74 Code : 8480-6 BMI: 32.7 Code : 07539-1 Heart Rate 1 : 85 bpm Height: 5'10" SpO2: 99% Weight: 228 lbs 10/20/2017 Blood Pressure 1: 138/78 Code : 8480-6 BMI: 32.4 Code : 75889-9 Heart Rate 1 : 80 bpm Height: 5'10" SpO2: 98% Weight: 226 lbs 03/20/2017 Blood Pressure 1: 134/72 Code : 8480-6 Heart Rate 1: 87 bpm Height: 5'10" SpO2: 97% 03/16/2017 Blood Pressure 1: 150/84 Code : 8480-6 BMI: 32.4 Code : 80034-6 Heart Rate 1 : 98 bpm Height: 5'10" SpO2: 97% Weight: 226 lbs 03/10/2017 Blood Pressure 1: 140/72 Code : 8480-6 BMI: 32.4 Code : 87975-9 Heart Rate 1 : 81 bpm Height: 5'10" SpO2: 97% Weight: 226 lbs 11/16/2016 Blood Pressure 1: 142/80 Code : 8480-6 BMI: 32.1 Code : 69615-8 Heart Rate 1 : 95 bpm Height: 5'10" SpO2: 98% Weight: 224 lbs 07/15/2016 Blood Pressure 1: 130/78 Code : 8480-6 BMI: 32.0 Code : 51107-9 Heart Rate 1 : 85 bpm Height: 5'10" SpO2: 95% Weight: 223 lbs 03/08/2016 Blood Pressure 1: 138/84 Code : 8480-6 BMI: 31.6 Code : 93248-5 Heart Rate 1 : 86 bpm Height: 5'10" SpO2: 98% Weight: 220 lbs 11/26/2015 Blood Pressure 1: 132/82 Code : 8480-6 BMI: 31.6 Code : 58598-2 Height: 5'10 " Weight: 220 lbs 08/06/2015 Blood Pressure 1: 138/74 Code : 8480-6 BMI: 31.0 Code : 32730-4 Heart Rate 1 : 87 bpm Height: 5'10" SpO2: 95% Weight: 216 lbs 05/04/2015 Blood Pressure 1: 128/80 Code : 8480-6 BMI: 33.6 Code : 00770-0 Heart Rate 1 : 94 bpm Height: 5'10" SpO2: 97% Weight: 234 lbs 11/06/2014 Blood Pressure 1: 132/92 Code : 8480-6 BMI: 31.1 Code : 57436-9 Heart Rate 1 : 88 bpm Height: 5'10" SpO2: 98% Weight: 217 lbs Functional Status No Functional Status data History of Present Illness Symptom Name Status Result Effective Date Notes Additional Comments medication use 05/24/2018 None Location oral intake 05/24/2018 None knee pain Location on the left 10/20/2017 None knee pain Location on the right 10/20/2017 right worse than left knee pain Quality chronic 10/20/2017 None knee pain Onset of Symptom _ years ago 10/20/2017 None knee pain Frequency of Episodes increasing 10/20/2017 None knee pain Limitation on Activities allows weight bearing activity 10/20/2017 None knee pain Severity moderate 10/20/2017 None knee pain Significant Medical Conditions degenerative joint disease 10/20/2017 None knee pain Pertinent Findings Denies locking 10/20/2017 None knee pain Pertinent Findings pain with movement 10/20/2017 None oral pain Location on the left 03/20/2017 None oral pain Quality acute 03/20/2017 None oral pain Quality improving 03/20/2017 None oral pain Onset and Resolution ongoing 03/20/2017 None oral pain Onset of Symptom 2 weeks ago 03/20/2017 None oral pain Limitation on Activities limits oral intake 03/20/2017 None oral pain Significant Medical Conditions dental disease 03/20/2017 None oral pain Alleviating Factors medication 03/20/2017 None oral pain Pertinent Findings Denies fever 03/20/2017 None low back pain Location on both sides 03/16/2017 None low back pain Radiating the left posterior thigh 03/16/2017 None low back pain Radiating the right posterior thigh 03/16/2017 None low back pain Quality aching 03/16/2017 None low back pain Onset and Resolution gradual in onset 03/16/2017 None low back pain Limitation on Activities allows weight bearing activity 03/16/2017 None low back pain Severity moderate 03/16/2017 None low back pain Alleviating Factors lying down 03/16/2017 None low back pain Exacerbating Factors standing or walking 03/16/2017 None low back pain Exacerbating Factors activity 03/16/2017 None hypertension Quality primary hypertension 03/16/2017 None hypertension Onset and Resolution ongoing 03/16/2017 None hypertension Onset of Symptom during adulthood 03/16/2017 None hypertension Blood Pressure Values not checking blood pressure at home 03/16/2017 None hypertension Alleviating Factors medication 03/16/2017 None hypertension Pertinent Findings Denies dizziness 03/16/2017 None hypertension Pertinent Findings Denies dyspnea 03/16/2017 None hypertension Pertinent Findings edema 03/16/2017 in both ankles, more so in the left- wears compression socks intermittently low back pain Quality improving 03/16/2017 since his injections low back pain Frequency of Episodes decreasing 03/16/2017 None back pain Location in the left upper back area 03/16/2017 None back pain Location in the right upper back area 03/16/2017 None back pain Quality worsening 03/16/2017 None back pain Quality intermittent 03/16/2017 None back pain Onset and Resolution ongoing 03/16/2017 None back pain Onset of Symptom 6+ months ago 03/16/2017 None back pain Frequency of Episodes increasing 03/16/2017 None back pain Alleviating Factors medication 03/16/2017 None oral pain Location on the left 03/10/2017 None oral pain Quality constant 03/10/2017 None oral pain Onset and Resolution sudden in onset 03/10/2017 None oral pain Onset of Symptom 5 days ago 03/10/2017 None oral pain Limitation on Activities limits oral intake 03/10/2017 None oral pain Frequency of Episodes increasing 03/10/2017 None oral pain Significant Medical Conditions dental disease 03/10/2017 None oral pain Triggers no known associated factors 03/10/2017 None oral pain Pertinent Findings facial pain 03/10/2017 None oral pain Pertinent Findings Denies fever 03/10/2017 None hypertension Quality primary hypertension 11/16/2016 None hypertension Onset and Resolution ongoing 11/16/2016 None hypertension Onset of Symptom during adulthood 11/16/2016 None hypertension Blood Pressure Values not checking blood pressure at home 11/16/2016 None hypertension Alleviating Factors medication 11/16/2016 None hypertension Pertinent Findings Denies dizziness 11/16/2016 None hypertension Pertinent Findings Denies dyspnea 11/16/2016 None hypertension Pertinent Findings edema 11/16/2016 in both legs, more so in the left since his left knee surgery low back pain Location on both sides 11/16/2016 None low back pain Radiating the left posterior thigh 11/16/2016 None low back pain Radiating the right posterior thigh 11/16/2016 None low back pain Quality aching 11/16/2016 None low back pain Quality worsening 11/16/2016 None low back pain Onset and Resolution gradual in onset 11/16/2016 None low back pain Onset and Resolution ongoing 11/16/2016 None low back pain Onset of Symptom several months ago 11/16/2016 None low back pain Limitation on Activities allows weight bearing activity 11/16/2016 None low back pain Severity moderate 11/16/2016 None low back pain Frequency of Episodes daily 11/16/2016 None low back pain Mechanism of injury unknown 11/16/2016 None low back pain Alleviating Factors lying down 11/16/2016 None low back pain Exacerbating Factors activity 11/16/2016 None low back pain Exacerbating Factors standing or walking 11/16/2016 None knee pain Location on the left 07/15/2016 None knee pain Location on the right 07/15/2016 right worse than left knee pain Quality chronic 07/15/2016 None knee pain Onset of Symptom _ years ago 07/15/2016 None knee pain Frequency of Episodes increasing 07/15/2016 None knee pain Limitation on Activities allows weight bearing activity 07/15/2016 None knee pain Severity moderate 07/15/2016 None knee pain Significant Medical Conditions degenerative joint disease 07/15/2016 None knee pain Pertinent Findings Denies locking 07/15/2016 None knee pain Pertinent Findings pain with movement 07/15/2016 None constipation Quality intermittent 07/15/2016 None constipation Quality hard 07/15/2016 None knee pain Location on the left 03/08/2016 None knee pain Location on the right 03/08/2016 right worse than left knee pain Quality chronic 03/08/2016 None knee pain Onset of Symptom _ years ago 03/08/2016 None knee pain Frequency of Episodes increasing 03/08/2016 None knee pain Limitation on Activities allows weight bearing activity 03/08/2016 None knee pain Severity moderate 03/08/2016 None knee pain Significant Medical Conditions degenerative joint disease 03/08/2016 None knee pain Mechanism of injury unknown 03/08/2016 None knee pain Sports Participation not significant 03/08/2016 None knee pain Pertinent Findings Denies locking 03/08/2016 None knee pain Pertinent Findings pain with movement 03/08/2016 None medication follow up Location oral intake 11/26/2015 None neck pain Location diffusely 08/06/2015 None neck pain Quality aching 08/06/2015 None neck pain Quality constant 08/06/2015 None neck pain Quality dull 08/06/2015 None neck pain Onset and Resolution ongoing 08/06/2015 None neck pain Onset of Symptom _ years ago 08/06/2015 None neck pain Frequency of Episodes daily 08/06/2015 None neck pain Radiating down both arms 08/06/2015 None paresthesia Onset and Resolution ongoing 05/04/2015 None paresthesia Quality worsening 05/04/2015 None paresthesia Quality numbness 05/04/2015 None paresthesia Location on both feet 05/04/2015 None paresthesia Onset of Symptom _ months ago 05/04/2015 coolness to toes lasting about 2 months - paresthesia Pertinent Findings weight change 05/04/2015 None paresthesia Pertinent Findings Denies muscle weakness 05/04/2015 None sinus congestion Location on both sides 11/06/2014 None sinus congestion Onset of Symptom 2 weeks ago 11/06/2014 None sinus congestion Pertinent Findings Denies fever 11/06/2014 None sinus congestion Pertinent Findings Denies cough 11/06/2014 None knee pain Location on the left 11/06/2014 None knee pain Location on the right 11/06/2014 None knee pain Quality dull pain 11/06/2014 aching pain knee pain Quality constant 11/06/2014 sometimes it is stabbing pain knee pain Onset of Symptom 2-3 years ago 11/06/2014 None knee pain Pertinent Findings pain with movement 11/06/2014 None cholesterol followup Alleviating Factors medication 11/06/2014 None cholesterol followup Frequency of Episodes unchanged 11/06/2014 None cholesterol followup Onset and Resolution ongoing 11/06/2014 None cholesterol followup Onset of Symptom during adulthood 11/06/2014 None cholesterol followup Quality chronic 11/06/2014 None cholesterol followup Triggers no known associated factors 11/06/2014 None Advance Directives No Advance Directive data Encounters Encounter Performer Location Codes Date EST. PATIENT, LEVEL III Diagnosis: Bilateral primary osteoarthritis of knee[ICD10: M17.0] Diagnosis: Low back pain[ICD10: M54.5] Julianna Mcfarlane MD, [facility] CPT-4 : 91449 05/24/2018 [id number] EST. PATIENT, LEVEL IV Diagnosis: Bilateral primary osteoarthritis of knee[ICD10: M17.0] [facility] CPT-4: 78492 10/20/2017 [id number] EST. PATIENT, LEVEL IV Diagnosis: Periapical abscess without sinus[ICD10: K04.7] Diagnosis: Cellulitis and abscess of mouth[ICD10: K12.2] [facility] CPT-4: 22412 03/20/2017 ([id number]) 35218 EST. PATIENT, LEVEL III Diagnosis: Periapical abscess without sinus[ICD10: K04.7] Diagnosis: Cellulitis and abscess of mouth[ICD10: K12.2] Mayte Mcfarlane MD, [facility] CPT-4: 03871 03/16/2017 ([id number]) 88731 EST. PATIENT, LEVEL III Diagnosis: Periapical abscess without sinus[ICD10: K04.7] Niya Mcfarlane MD, [facility] CPT-4: 84592 03/10/2017 ([id number]) 27126 EST. PATIENT, LEVEL IV Diagnosis: Essential (primary) hypertension[ICD10: I10] Diagnosis: Low back pain[ICD10: M54.5] Mayte Mcfarlane MD, [facility] CPT- 4: 56885 11/16/2016 ([id number]) 47808 EST. PATIENT, LEVEL IV Diagnosis: Mixed hyperlipidemia[ICD10: E78.2] Diagnosis: Essential (primary) hypertension[ICD10: I10] Diagnosis: Impaired fasting glucose[ICD10: R73.01] Diagnosis: Encounter for screening for malignant neoplasm of prostate[ICD10: Z12.5] Diagnosis: Encounter for screening for other viral diseases[ICD10: Z11.59] Diagnosis: Drug induced constipation[ICD10: K59.03] Niya Mcfarlane MD, [facility] CPT-4: 86888 07/15/2016 ([id number]) 45132 EST. PATIENT, LEVEL III Diagnosis: Bilateral primary osteoarthritis of knee[ICD10: M17.0] Niya Mcfarlane MD, [facility] CPT-4: 45758 03/08/2016 ([id number]) 33853 EST. PATIENT, LEVEL III Diagnosis: Bilateral primary osteoarthritis of knee[ICD10: M17.0] Niya Mcfarlane MD, [facility] CPT-4: 97989 11/26/2015 [id number] EST. PATIENT, LEVEL IV Diagnosis: Cervicalgia[ICD10: M54.2] Diagnosis: Other specified polyneuropathies[ICD10: G62.89] Diagnosis: Dental caries, unspecified[ICD10: K02.9] Diagnosis: Major depressive disorder, single episode, unspecified[ICD10: F32.9] Niya Mcfarlane MD, [facility] CPT-4: 20963 08/06/2015 ([id number]) 91747 EST. PATIENT, LEVEL IV Diagnosis: Mixed hyperlipidemia[ICD10: E78.2] Diagnosis: Idiopathic gout, unspecified ankle and foot[ICD10: M10.079] Diagnosis: Other specified polyneuropathies[ICD10: G62.89] Diagnosis: Morbid (severe) obesity due to excess calories[ICD10: E66.01] [facility] CPT-4: 30008 05/04/2015 ([id number]) OFFICE VISIT, NEW - LEVEL 4 Diagnosis: GOUT[ICD9: 274.9] Diagnosis: Sinusitis, acute[ICD9: 461.9] Diagnosis: HYPERLIPIDEMIA[ICD9: 272.4] [facility] CPT- 4: 85331 11/06/2014 Plan of Care Planned Activity Notes Codes Status Date Patient Education: Patient Medication Summary Completed 05/28/2018 Patient Education: Patient Medication Summary Completed 05/28/2018 Visit Plan: OA knees - pt has chronic pain - has been maintained on current medications, has not sought out other medications, only uses PRN pain medications as directed, and understands the consequences of over- medication. 05/24/2018 Appointment: Julianna Stanford WPtel: [id number] (15 min) Moderate 05/24/2018 Patient Education: Patient Medication Summary Completed 05/24/2018 Patient Education: Back Pain Completed 05/24/2018 Appointment: Niya Bryant WPtel: [id number] [place] (15 min) Moderate 05/21/2018 Visit Plan: OA knees - pt has chronic pain - has been maintained on current medications, has not sought out other medications, only uses PRN pain medications as directed, and understands the consequences of over- medication. 10/20/2017 Appointment: Julianna Stanford WPtel: [phone] [place] (30 min) Complex 10/20/2017 Patient Education: Patient Medication Summary Completed 10/20/2017 Appointment: Julianna Stanford WPtel: [phone] [place] (15 min) Moderate 10/19/2017 Visit Plan: Cellulitis/Abscess - continue with current treatment course - restart keflex as patient had improvement of symptoms on the rocephin. continue with clindamycin and increase probiotic to tid dosing. Keep follow up appointment with Dr. Hendrix on 03/28. Notify clinic with any changes or concerns, or with any questions. 03/20/2017 [phone] ([facility] min) Complex 03/20/2017 Patient Education: Patient Medication Summary Completed 03/20/2017 Visit Plan: Cellulitis/Abscess - continue with current treatment course - add keflex as patient had improvement of symptoms on the rocephin. continue with clindamycin and increase probiotic to tid dosing. 03/16/2017 Visit Plan: Cellulitis/Abscess - continue with current treatment course - add keflex as patient had improvement of symptoms on the rocephin. continue with clindamycin and increase probiotic to tid dosing. 03/16/2017 Appointment: Mayte Mcfarlane WPtel: [phone] [id number] (15 min) Moderate 03/16/2017 Patient Education: Patient Medication Summary Completed 03/16/2017 Visit Plan: Abscessed tooth-discussed with Dr Mcfarlane- plan for IV abx x 3 days-will start with clindamycin and rocephin today and continue rocephin Monday and Monday-will increase dose of oral clindamycin - rx sent to patient's pharmacy and instructed on use. Patient verbalized understanding of plan. 03/10/2017 Appointment: [phone] [place] (15 min) Moderate 03/10/2017 Patient Education: Patient Medication Summary Completed 03/10/2017 Patient Education: Obesity Completed 03/10/2017 Visit Plan: Hypertension - well controlled - continue with current medications, continue with no added salt diet. Pt has been encouraged to exercise daily. The pt has been advised to call the office if there are any acute concerns about change in blood pressure readings at home. Sacroiliitis - back exercises discussed with the patient, he is currently receiving physical therapy and well will order physical therapy eval his back. pt to continue with anti-inflammatories. Pt is to call if the symptoms do not improve or if they worsen. 11/16/2016 Appointment: Mayte Mcfarlane WPtel: [phone] [id number] (15 min) Moderate 11/16/2016 Patient Education: Patient Medication Summary Completed 11/16/2016 Patient Education: Obesity Completed 11/16/2016 Patient Education: Hypertension Completed 11/16/2016 Visit Plan: Opioid induced constipation-samples of movantik provided and instructed on use Hypertension - well controlled - continue with current medications, continue with no added salt diet. Pt has been encouraged to exercise daily. The pt has been advised to call the office if there are any acute concerns about change in blood pressure readings at home. Hyperlipidemia - pt has been counseled about appropriate diet, exercise, and need for low fat food choices. I have discussed the need for the patient to take medications as prescribed. If the patient has negative side effects from the medication, they are to CALL the office and not abruptly discontinue the medication without discussion with a practitioner in the office. We will check labs in 3-6 months for follow up on the patient's chronic medical problem and to assure normal liver response to medications. Bilateral knee pain-refill hydrocodone Elevated blood sugars-check hgb a1c 07/15/2016 Appointment: Niya Bryant WPtel: [phone] (15 min) Moderate 07/15/2016 Patient Education: Patient Medication Summary Completed 07/15/2016 Patient Education: Obesity Completed 07/15/2016 Patient Education: Hypertension Completed 07/15/2016 Visit Plan: OA knees - pt has chronic pain - has been maintained on current medications, has not sought out other medications, only uses PRN pain medications as directed, and understands the consequences of over- medication. 03/08/2016 Appointment: Niya Bryant WPtel: [phone] (30 min) Complex 03/08/2016 Patient Education: Patient Medication Summary Completed 03/08/2016 Patient Education: Obesity Completed 03/08/2016 Visit Plan: OA knees-symptoms not well controlled- recommend pt to take antiinflammatory as directed for pain control, hydrocodone prn, samples of voltaren gel provided and instructed on use. Recommend patient check with insurance for coverage on synvisc injections and will refer if covered. Patient verbalized understanding of plan. 11/26/2015 Appointment: Niya Bryant WPtel: [id number] (30 min) Complex 11/26/2015 Patient Education: Patient Medication Summary Completed 11/26/2015 Visit Plan: Neck Pain- pt to start with tiger balm, aspercreme or biofreeze to neck three times daily and start neck exercises daily. Neuropathy-improved with metanx Tooth infection-continue clindamycin- patient to get tooth pulled tomorrow Depression-add vitamin B12 daily-call if symptoms do not improve or if any worse 08/06/2015 Appointment: (30 min) Complex 08/06/2015 Patient Education: Patient Medication Summary Completed 08/06/2015 Patient Education: .Cervicalgia Neck Pain Completed 08/06/2015 Visit Plan: Hypertension - well controlled - continue with current medications, continue with no added salt diet. Pt has been encouraged to exercise daily. The pt has been advised to call the office if there are any acute concerns about change in blood pressure readings at home. Peripheral neuropathy - rx for metanex. Obesity - discussed need for decreased caloric intake and exercise. 05/04/2015 Patient Education: Patient Medication Summary Completed 05/04/2015 Visit Plan: Gout -check labs - pt to use diclofenac for joint pain. Pt to start on gout diet. Sinusitis - Pt has acute infection - pain in face, maxillary region, Pt informed to use decongestant, RX given to patient , sinus rinses also recommended. Call if symptoms do not show improvement. Hyperlipidemia - pt has been counseled about appropriate diet, exercise, and need for low fat food choices. I have discussed the need for the patient to take medications as prescribed. If the patient has negative side effects from the medication, they are to CALL the office and not abruptly discontinue the medication without discussion with a practitioner in the office. We will check labs in 3-6 months for follow up on the patient's chronic medical problem and to assure normal liver response to medications. 11/06/2014 Appointment: May[facility] Mcfarlane [facility]el[phone] [id number] [place] [facility] New Patient 11/06/2014 Patient Education: Patient Medication Summary Completed 11/06/2014 Patient Education: Hypertension Completed 11/06/2014 Instructions Comment . OA knees - pt has chronic pain - has been maintained on current medications, has not sought out other medications, only uses PRN pain medications as directed, and understands the consequences of over-medication. . Cellulitis/Abscess - continue with current treatment course - restart keflex as patient had improvement of symptoms on the rocephin. continue with clindamycin and increase probiotic to tid dosing. Keep follow up appointment with Dr. Hendrix on 03/28. Notify clinic with any changes or concerns, or with any questions. . Hypertension - well controlled - continue with current medications, continue with no added salt diet. Pt has been encouraged to exercise daily. The pt has been advised to call the office if there are any acute concerns about change in blood pressure readings at home. Peripheral neuropathy - rx for metanex. Obesity - discussed need for decreased caloric intake and exercise. . OA knees-symptoms not well controlled- recommend pt to take antiinflammatory as directed for pain control, hydrocodone prn, samples of voltaren gel provided and instructed on use. Recommend patient check with insurance for coverage on synvisc injections and will refer if covered. Patient verbalized understanding of plan. IV antibiotics today, tomorrow and Monday Increase clindamycin to 300mg TID . Abscessed tooth-discussed with Dr Mcfarlane-plan for IV abx x 3 days-will start with clindamycin and rocephin today and continue rocephin Monday and Monday-will increase dose of oral clindamycin -rx sent to patient's pharmacy and instructed on use. Patient verbalized understanding of plan. . OA knees - pt has chronic pain - has been maintained on current medications, has not sought out other medications, only uses PRN pain medications as directed, and understands the consequences of over-medication. . Opioid induced constipation-samples of movantik provided and instructed on use Hypertension - well controlled - continue with current medications, continue with no added salt diet. Pt has been encouraged to exercise daily. The pt has been advised to call the office if there are any acute concerns about change in blood pressure readings at home. Hyperlipidemia - pt has been counseled about appropriate diet, exercise, and need for low fat food choices. I have discussed the need for the patient to take medications as prescribed. If the patient has negative side effects from the medication, they are to CALL the office and not abruptly discontinue the medication without discussion with a practitioner in the office. We will check labs in 3-6 months for follow up on the patient's chronic medical problem and to assure normal liver response to medications. Bilateral knee pain-refill hydrocodone Elevated blood sugars-check hgb a1c . Cellulitis/Abscess - continue with current treatment course - add keflex as patient had improvement of symptoms on the rocephin. continue with clindamycin and increase probiotic to tid dosing. . Cellulitis/Abscess - continue with current treatment course - add keflex as patient had improvement of symptoms on the rocephin. continue with clindamycin and increase probiotic to tid dosing. . OA knees - pt has chronic pain - has been maintained on current medications, has not sought out other medications, only uses PRN pain medications as directed, and understands the consequences of over-medication. . Gout -check labs - pt to use diclofenac for joint pain. Pt to start on gout diet. Sinusitis - Pt has acute infection - pain in face, maxillary region, Pt informed to use decongestant, RX given to patient, sinus rinses also recommended. Call if symptoms do not show improvement. Hyperlipidemia - pt has been counseled about appropriate diet, exercise, and need for low fat food choices. I have discussed the need for the patient to take medications as prescribed. If the patient has negative side effects from the medication, they are to CALL the office and not abruptly discontinue the medication without discussion with a practitioner in the office. We will check labs in 3-6 months for follow up on the patient's chronic medical problem and to assure normal liver response to medications. . Hypertension - well controlled - continue with current medications, continue with no added salt diet. Pt has been encouraged to exercise daily. The pt has been advised to call the office if there are any acute concerns about change in blood pressure readings at home. Sacroiliitis - back exercises discussed with the patient, he is currently receiving physical therapy and well will order physical therapy eval his back. pt to continue with anti-inflammatories. Pt is to call if the symptoms do not improve or if they worsen. VITAMIN B12 1000MCG DAILY . Neck Pain- pt to start with tiger balm, aspercreme or biofreeze to neck three times daily and start neck exercises daily. Neuropathy-improved with metanx Tooth infection-continue clindamycin-patient to get tooth pulled tomorrow Depression-add vitamin B12 daily-call if symptoms do not improve or if any worse
--- OUTSIDE RECORDS SUMMARY | 2018-07-11 12:43 | XMS REPORT | CCD ---
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 Name Role Phone PP Unavailable CCM Unavailable Summary Purpose Interface Exchange Insurance Providers Payer name Policy type / Coverage type Covered green party ID Effective Begin Date Effective End Date Blue Cross Blue [facility] Blue Cross/Blue Shield [id number] Unknown Unknown Family history Father Diagnosis Age At Onset Cancer Unknown Stroke Unknown Heart Attack Unknown Hyperlipidemia Unknown Diabetes mellitus Type 2 Unknown Arthritis Unknown Heart disease Unknown Mother Diagnosis Age At Onset Arthritis Unknown Hypertension Unknown Breast cancer Unknown Sister Diagnosis Age At Onset Multiple sclerosis Unknown Social History Social History Element Codes Description Effective Dates Employment Unknown 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 Number of children Unknown 3 one daughter lives locally, other children live in [facility] 05/04/2015 Marital status Unknown Danielle 11/06/[address]: 353827147 Has never smoked or chewed tobacco 11/06/2014 Alcohol history Unknown occasionally drinks alcohol 11/06/2014 Allergies, Adverse Reactions, Alerts Substance Reaction Codes Entered Date Inactivated Date Status * NO KNOWN FOOD ALLERGIES Unknown 11/06/2014 No Inactive Date Active amoxicillin RxNorm: 723 11/06/2014 No Inactive Date Active AUGMENTIN RxNorm: 031967 11/06/2014 No Inactive Date Active Past Medical [...] Hour 10 mg-240 mg tablet,extended release RxNorm: 5388789 TAKE ONE TABLET BY MOUTH DAILY 06/18/20182018 Active hydrocodone 10 mg-acetaminophen 325 mg tablet RxNorm: 645667 1 Tablet(s) PO QID as needed tooth abscess pain or back pain 06/14/2018 07/13/2018 Active simvastatin 40 mg tablet RxNorm: 552978 TAKE ONE TABLET BY MOUTH EVERY NIGHT AT BEDTIME 06/13/2018 09/10/2018 Active enalapril 5 mg-hydrochlorothiazide 12.5 mg tablet RxNorm: 032448 TAKE ONE TABLET BY MOUTH DAILY 05/28/2018 11/23/2018 Active hydrocodone 10 mg-acetaminophen 325 mg tablet RxNorm: 584622 1 Tablet(s) PO QID as needed tooth abscess pain or back pain 05/15/2018 06/13/2018 Inactive Cymbalta 60 mg capsule,delayed release RxNorm: 553274 TAKE ONE CAPSULE BY MOUTH DAILY 05/14/2018 08/11/2018 Active diclofenac sodium 75 mg tablet,delayed release RxNorm: 399568 TAKE ONE TABLET BY MOUTH TWICE A DAY 04/23/2018 09/19/2018 Active Valium 5 mg tablet RxNorm: 381158 Tablet(s) TAKE ONE TABLET BY MOUTH EVERY NIGHT AT BEDTIME 04/18/2018 05/17/2018 Inactive hydrocodone 10 mg-acetaminophen 325 mg tablet RxNorm: 116350 1 Tablet(s) PO QID as needed tooth abscess pain or back pain 04/16/2018 05/14/2018 Inactive hydrocodone 10 mg-acetaminophen 325 mg tablet RxNorm: 359401 1 Tablet(s) PO QID as needed tooth abscess pain or back pain 03/15/2018 04/13/2018 Inactive Effexor 75 mg tablet RxNorm: 432957 TAKE ONE TABLET BY MOUTH DAILY 03/14/2018 08/10/2018 Active hydrocodone 10 mg-acetaminophen 325 mg tablet RxNorm: 974980 1 Tablet(s) PO QID as needed tooth abscess pain or back pain 02/16/2018 03/14/2018 Inactive simvastatin 40 mg tablet RxNorm: 995015 TAKE ONE TABLET BY MOUTH EVERY NIGHT AT BEDTIME 02/12/2018 06/11/2018 Inactive Cymbalta 60 mg capsule,delayed release RxNorm: 135854 TAKE ONE CAPSULE BY MOUTH DAILY 02/12/2018 05/12/2018 Inactive diclofenac sodium 75 mg tablet,delayed release RxNorm: 282658 TAKE ONE TABLET BY MOUTH TWICE A DAY 01/26/2018 04/22/2018 Inactive hydrocodone 10 mg-acetaminophen 325 mg tablet RxNorm: 397256 1 Tablet(s) PO QID as needed tooth abscess pain or back pain 01/18/2018 02/15/2018 Inactive Claritin-D 24 Hour 10 mg-240 mg tablet,extended release RxNorm: 0040770 Tablet(s) TAKE ONE TABLET BY MOUTH DAILY 01/08/2018 04/07/2018 Inactive enalapril 5 mg-hydrochlorothiazide 12.5 mg tablet RxNorm: 776943 TAKE ONE TABLET BY MOUTH DAILY 12/29/2017 05/27/2018 Inactive hydrocodone 10 mg-acetaminophen 325 mg tablet RxNorm: 462609 1 Tablet(s) PO QID as needed tooth abscess pain or back pain 12/21/2017 01/17/2018 Inactive Cymbalta 60 mg capsule,delayed release RxNorm: 492006 TAKE ONE CAPSULE BY MOUTH DAILY 12/15/2017 02/11/2018 Inactive hydrocodone 10 mg-acetaminophen 325 mg tablet RxNorm: 095465 1 Tablet(s) PO QID as needed tooth abscess pain or back pain 11/22/2017 11/21/2017 Inactive hydrocodone 10 mg-acetaminophen 325 mg tablet RxNorm: 186894 1 Tablet(s) PO QID as needed tooth abscess pain or back pain 11/22/2017 12/20/2017 Inactive Movantik 25 mg tablet RxNorm: 9435229 1 Tablet(s) PO QAM 201712/07/2017 Inactive hydrocodone 10 mg-acetaminophen 325 mg tablet RxNorm: 354550 1 Tablet(s) PO QID as needed tooth abscess pain or back pain 10/20/2017 11/18/2017 Inactive Effexor 75 mg tablet RxNorm: 389658 TAKE ONE TABLET BY MOUTH DAILY 10/10/2017 03/08/2018 Inactive diclofenac sodium 75 mg tablet,delayed release RxNorm: 344838 TAKE ONE TABLET BY MOUTH TWICE A DAY 10/02/2017 01/25/2018 Inactive hydrocodone 10 mg-acetaminophen 325 mg tablet RxNorm: 224589 1 Tablet(s) PO QID as needed tooth abscess pain or back pain 09/27/2017 10/26/2017 Inactive simvastatin 40 mg tablet RxNorm: 993144 TAKE ONE TABLET BY MOUTH EVERY NIGHT AT BEDTIME 09/13/2017 02/09/2018 Inactive Cymbalta 60 mg capsule,delayed release RxNorm: 813914 TAKE ONE CAPSULE BY MOUTH DAILY 09/13/2017 12/11/2017 Inactive Claritin-D 24 Hour 10 mg-240 mg tablet,extended release RxNorm: 6764011 Tablet(s) TAKE ONE TABLET BY MOUTH DAILY 08/28/2017 11/25/2017 Inactive Claritin-D 24 Hour 10 mg-240 mg tablet,extended release RxNorm: 3446004 TAKE ONE TABLET BY MOUTH DAILY 08/28/20172017 Inactive hydrocodone 10 mg-acetaminophen 325 mg tablet RxNorm: 102504 1 Tablet(s) PO QID as needed tooth abscess pain or back pain 08/25/2017 09/23/2017 Inactive Valium 5 mg tablet RxNorm: 780613 Tablet(s) TAKE ONE TABLET BY MOUTH EVERY NIGHT AT BEDTIME 08/07/2017 11/02/2017 Inactive Metanx (algal oil) 3 mg-35 mg-2 mg-90.314 mg capsule RxNorm: TAKE ONE CAPSULE BY MOUTH TWO TIMES DAILY 08/02/20172017 Inactive hydrocodone 10 mg-acetaminophen 325 mg tablet RxNorm: 180064 1 Tablet(s) PO QID as needed tooth abscess pain or back pain 07/27/2017 08/24/2017 Inactive enalapril 5 mg-hydrochlorothiazide 12.5 mg tablet RxNorm: 106345 TAKE ONE TABLET BY MOUTH DAILY 07/03/2017 12/28/2017 Inactive hydrocodone 10 mg-acetaminophen 325 mg tablet RxNorm: 622797 1 Tablet(s) PO QID as needed tooth abscess pain or back pain 06/23/2017 07/22/2017 Inactive hydrocodone 10 mg-acetaminophen 325 mg tablet RxNorm: 043877 1 Tablet(s) PO QID as needed tooth abscess pain or back pain 05/31/2017 06/22/2017 Inactive diclofenac sodium 75 mg tablet,delayed release RxNorm: 842485 TAKE ONE TABLET BY MOUTH TWICE A DAY 05/29/2017 09/25/2017 Inactive Valium 5 mg tablet RxNorm: 610092 Tablet(s) TAKE ONE TABLET BY MOUTH EVERY NIGHT AT BEDTIME 05/16/2017 04/17/2018 Inactive Cymbalta 60 mg capsule,delayed release RxNorm: 842855 TAKE ONE CAPSULE BY MOUTH DAILY 05/15/2017 09/11/2017 Inactive hydrocodone 10 mg-acetaminophen 325 mg tablet RxNorm: 548569 1 Tablet(s) PO QID as needed tooth abscess pain or back pain 2017 05/30/2017 Inactive Claritin-D 24 Hour 10 mg-240 mg tablet,extended release RxNorm: 4141300 Tablet(s) TAKE ONE TABLET BY MOUTH DAILY 04/19/2017 07/17/2017 Inactive hydrocodone 5 mg-acetaminophen 325 mg tablet RxNorm: 337767 1-2 Tablet(s) PO Q6 as needed 04/18/2017 05/02/2017 Inactive Effexor 75 mg tablet RxNorm: 643691 TAKE ONE TABLET BY MOUTH DAILY 04/13/2017 10/09/2017 Inactive Keflex 500 mg capsule RxNorm: 716681 1 Capsule(s) PO TID 201603/26/2017 Inactive clindamycin 300 mg capsule RxNorm: 437690 1 Capsule(s) PO TID 03/20/2017 03/26/2017 Inactive ceftriaxone 500 mg solution for injection RxNorm: 3759373 1 Gram(s) Inj 03/16/2017 03/16/2017 Inactive clindamycin 300 mg capsule RxNorm: 496949 1 Capsule(s) PO TID 03/16/2017 03/19/2017 Inactive hydrocodone 5 mg-acetaminophen 325 mg tablet RxNorm: 076129 1-2 Tablet(s) PO Q6 as needed 03/16/2017 03/16/2017 Inactive Keflex 500 mg capsule RxNorm: 312707 1 Capsule(s) PO TID 201603/19/2017 Inactive hydrocodone 10 mg-acetaminophen 325 mg tablet RxNorm: 603232 1 Tablet(s) PO QID as needed tooth abscess pain or back pain 03/16/2017 04/14/2017 Inactive simvastatin 40 mg tablet RxNorm: 821707 TAKE ONE TABLET BY MOUTH EVERY NIGHT AT BEDTIME 03/13/2017 09/08/2017 Inactive clindamycin 300 mg capsule RxNorm: 442237 1 Capsule(s) PO TID 03/10/2017 03/15/2017 Inactive hydrocodone 5 mg-acetaminophen 325 mg tablet RxNorm: 121688 1-2 Tablet(s) PO Q6 as needed 03/03/2017 03/15/2017 Inactive hydrocodone 5 mg-acetaminophen 325 mg tablet RxNorm: 375400 1 to 2 Tablet(s) PO Q6 as needed 02/15/2017 02/25/2017 Inactive hydrocodone 5 mg-acetaminophen 325 mg tablet RxNorm: 049535 1 to 2 Tablet(s) PO Q6 as needed 02/02/2017 02/12/2017 Inactive enalapril 5 mg-hydrochlorothiazide 12.5 mg tablet RxNorm: 117245 TAKE ONE TABLET BY MOUTH DAILY 01/23/2017 06/21/2017 Inactive diclofenac sodium 75 mg tablet,delayed release RxNorm: 122741 TAKE ONE TABLET BY MOUTH TWICE A DAY 01/23/2017 05/22/2017 Inactive hydrocodone 5 mg-acetaminophen 325 mg tablet RxNorm: 294495 1 to 2 Tablet(s) PO Q6 as needed 01/12/2017 01/22/2017 Inactive hydrocodone 5 mg-acetaminophen 325 mg tablet RxNorm: 317073 1 to 2 Tablet(s) PO Q6 as needed 12/29/2016 01/08/2017 Inactive hydrocodone 5 mg-acetaminophen 325 mg tablet RxNorm: 901290 1 to 2 Tablet(s) PO Q6 as needed 12/16/2016 12/26/2016 Inactive Cymbalta 60 mg capsule,delayed release RxNorm: 050972 TAKE ONE CAPSULE BY MOUTH DAILY 12/14/2016 05/12/2017 Inactive hydrocodone 5 mg-acetaminophen 325 mg tablet RxNorm: 795319 1 to 2 Tablet(s) PO Q6 as needed 11/30/2016 12/10/2016 Inactive Voltaren 1 % topical gel RxNorm: 868830 2 Gram(s) TOP QID bilateral SI joints 11/16/2016 01/14/2017 Inactive diclofenac sodium 75 mg tablet,delayed release RxNorm: 680340 TAKE ONE TABLET BY MOUTH TWICE A DAY 10/31/2016 01/22/2017 Inactive hydrocodone 5 mg-acetaminophen 325 mg tablet RxNorm: 831245 1 to 2 Tablet(s) PO Q6 as needed 10/27/2016 11/06/2016 Inactive hydrocodone 5 mg-acetaminophen 325 mg tablet RxNorm: 331965 1 to 2 Tablet(s) PO Q6 as needed 10/05/2016 10/15/2016 Inactive Effexor 75 mg tablet RxNorm: 961664 TAKE ONE TABLET BY MOUTH DAILY 10/03/2016 03/31/2017 Inactive Claritin-D 24 Hour 10 mg-240 mg tablet,extended release RxNorm: 3687539 Tablet(s) TAKE ONE TABLET BY MOUTH DAILY 09/26/2016 12/24/2016 Inactive hydrocodone 5 mg-acetaminophen 325 mg tablet RxNorm: 375530 1 to 2 Tablet(s) PO Q6 as needed 09/09/2016 09/19/2016 Inactive hydrocodone 5 mg-acetaminophen 325 mg tablet RxNorm: 300069 1 to 2 Tablet(s) PO Q6 as needed 08/19/2016 08/29/2016 Inactive hydrocodone 5 mg-acetaminophen 325 mg tablet RxNorm: 339104 1 to 2 Tablet(s) PO Q6 as needed 08/01/2016 08/11/2016 Inactive enalapril 5 mg-hydrochlorothiazide 12.5 mg tablet RxNorm: 700088 Tablet(s) TAKE ONE TABLET BY MOUTH DAILY 07/18/201601/13 Inactive Movantik 25 mg tablet RxNorm: 2823621 1 Tablet(s) PO QAM 201611/07/2017 Inactive hydrocodone 5 mg-acetaminophen 325 mg tablet RxNorm: 758549 1 to 2 Tablet(s) PO Q6 as needed 07/15/2016 07/25/2016 Inactive diclofenac sodium 75 mg tablet,delayed release RxNorm: 969643 TAKE ONE TABLET BY MOUTH TWICE A DAY 06/27/2016 10/24/2016 Inactive hydrocodone 5 mg-acetaminophen 325 mg tablet RxNorm: 883311 1 to 2 Tablet(s) PO Q6 as needed 06/16/2016 06/26/2016 Inactive Claritin-D 24 Hour 10 mg-240 mg tablet,extended release RxNorm: 8731961 Tablet(s) TAKE ONE TABLET BY MOUTH DAILY 06/10/2016 08/08/2016 Inactive Metanx (algal oil) 3 mg-35 mg-2 mg-90.314 mg capsule RxNorm: Capsule(s) TAKE ONE CAPSULE BY MOUTH TWO TIMES DAILY 06/02/2016 05/27/2017 Inactive hydrocodone 5 mg-acetaminophen 325 mg tablet RxNorm: 691519 1 to 2 Tablet(s) PO Q6 as needed 05/27/2016 06/06/2016 Inactive Valium 5 mg tablet RxNorm: 176286 Tablet(s) TAKE ONE TABLET BY MOUTH EVERY NIGHT AT BEDTIME 05/16/2016 07/14/2016 Inactive Metanx (algal oil) 3 mg-35 mg-2 mg-90.314 mg capsule RxNorm: TAKE ONE CAPSULE BY MOUTH TWO TIMES DAILY 05/11/20162015 Inactive hydrocodone 5 mg-acetaminophen 325 mg tablet RxNorm: 470270 1 to 2 Tablet(s) PO Q6 as needed 04/25/2016 05/02/2016 Inactive [SAVINGS FOR NON-COVERED DRUGS -- BIN: 203625, PCN: ASPROD1, Group: XXXXX, ID# [id number], Questions: . THIS IS NOT INSURANCE.] hydrocodone 5 mg-acetaminophen 325 mg tablet RxNorm: 511129 1 to 2 Tablet(s) PO Q6 as needed 04/01/2016 04/08/2016 Inactive [SAVINGS FOR NON-COVERED DRUGS -- BIN: 749068, PCN: ASPROD1, Group: XXXXX, ID# [id number], Questions: . THIS IS NOT INSURANCE.] diclofenac sodium 75 mg tablet,delayed release RxNorm: 822607 TAKE ONE TABLET BY MOUTH TWICE A DAY 03/21/2016 06/18/2016 Inactive enalapril 5 mg-hydrochlorothiazide 12.5 mg tablet RxNorm: 854217 TAKE ONE TABLET BY MOUTH DAILY 03/21/2016 07/17/2016 Inactive Claritin-D 24 Hour 10 mg-240 mg tablet,extended release RxNorm: 8393225 Tablet(s) TAKE ONE TABLET BY MOUTH DAILY 03/11/2016 06/08/2016 Inactive hydrocodone 5 mg-acetaminophen 325 mg tablet RxNorm: 651189 1 to 2 Tablet(s) PO Q6 as needed 03/08/2016 03/15/2016 Inactive [SAVINGS FOR NON-COVERED DRUGS -- BIN: 109728, PCN: ASPROD1, Group: XXXXX, ID# [id number], Questions: . THIS IS NOT INSURANCE.] simvastatin 40 mg tablet RxNorm: 182152 1 Tablet(s) PO QHS 10/03/2016 Inactive Effexor 75 mg tablet RxNorm: 332898 Tablet(s) TAKE ONE TABLET BY MOUTH DAILY 03/08/2016 10/02/2016 Inactive simvastatin 40 mg tablet RxNorm: 639405 TAKE ONE TABLET BY MOUTH EVERY NIGHT AT BEDTIME 02/05/2016 05/04/2016 Inactive Request already responded to by other means (e.g. phone or fax) hydrocodone 5 mg-acetaminophen 325 mg tablet RxNorm: 829105 1 to 2 Tablet(s) PO Q6 as needed 02/02/2016 02/09/2016 Inactive [SAVINGS FOR NON-COVERED DRUGS -- BIN: 371999, PCN: ASPROD1, Group: XXXXX, ID# [id number], Questions: . THIS IS NOT INSURANCE.] simvastatin 40 mg tablet RxNorm: 847694 1 Tablet(s) PO QHS 03/07/2016 Inactive Cymbalta 60 mg capsule,delayed release RxNorm: 733516 TAKE ONE CAPSULE BY MOUTH DAILY 01/14/2016 06/11/2016 Inactive Request already responded to by other means ( e.g. phone or fax) Claritin-D 24 Hour 10 mg-240 mg tablet,extended release RxNorm: 9595649 Tablet(s) TAKE ONE TABLET BY MOUTH DAILY 01/14/2016 02/12/2016 Inactive hydrocodone 5 mg-acetaminophen 325 mg tablet RxNorm: 456304 1 to 2 Tablet(s) PO Q6 as needed 01/14/2016 01/21/2016 Inactive [SAVINGS FOR NON-COVERED DRUGS -- BIN: 401200, PCN: ASPROD1, Group: XXXXX, ID# [id number], Questions: . THIS IS NOT INSURANCE.] Claritin-D 24 Hour 10 mg-240 mg tablet,extended release RxNorm: 6121418 TAKE ONE TABLET BY MOUTH DAILY 01/14/20162015 Inactive Cymbalta 60 mg capsule,delayed release RxNorm: 103132 Capsule(s) TAKE ONE CAPSULE BY MOUTH DAILY 01/12/2016 01/13/2016 Inactive Claritin-D 24 Hour 10 mg-240 mg tablet,extended release RxNorm: 4374767 TAKE ONE TABLET BY MOUTH DAILY 01/11/20162015 Inactive Claritin-D 24 Hour 10 mg-240 mg tablet,extended release RxNorm: 8724075 TAKE ONE TABLET BY MOUTH DAILY 01/11/20162015 Inactive Claritin-D 24 Hour 10 mg-240 mg tablet,extended release RxNorm: 4470360 TAKE ONE TABLET BY MOUTH DAILY 01/07/20162015 Inactive Effexor 75 mg tablet RxNorm: 774486 TAKE ONE TABLET BY MOUTH DAILY 01/01/2016 02/29/2016 Inactive diclofenac sodium 75 mg tablet,delayed release RxNorm: 445237 TAKE ONE TABLET BY MOUTH TWICE A DAY 12/23/2015 03/20/2016 Inactive enalapril 5 mg-hydrochlorothiazide 12.5 mg tablet RxNorm: 725407 TAKE ONE TABLET BY MOUTH DAILY 12/23/2015 03/20/2016 Inactive hydrocodone 5 mg-acetaminophen 325 mg tablet RxNorm: 995910 1 to 2 Tablet(s) PO Q6 as needed 12/22/2015 12/29/2015 Inactive [SAVINGS FOR NON-COVERED DRUGS -- BIN: 030517, PCN: ASPROD1, Group: XXXXX, ID# [id number], Questions: . THIS IS NOT INSURANCE.] Valium 5 mg tablet RxNorm: 645539 Tablet(s) TAKE ONE TABLET BY MOUTH EVERY NIGHT AT BEDTIME 12/01/2015 04/17/2018 Inactive hydrocodone 5 mg-acetaminophen 325 mg tablet RxNorm: 170167 1 to 2 Tablet(s) PO Q6 as needed 11/30/2015 12/07/2015 Inactive [SAVINGS FOR NON-COVERED DRUGS -- BIN: 167314, PCN: ASPROD1, Group: XXXXX, ID# [id number], Questions: . THIS IS NOT INSURANCE.] hydrocodone 5 mg-acetaminophen 325 mg tablet RxNorm: 183604 1 to 2 Tablet(s) PO Q6 as needed 11/09/2015 11/16/2015 Inactive [SAVINGS FOR NON-COVERED DRUGS -- BIN: 598820, PCN: ASPROD1, Group: XXXXX, ID# [id number], Questions: . THIS IS NOT INSURANCE.] Claritin-D 24 Hour 10 mg-240 mg tablet,extended release RxNorm: 5927483 Tablet(s) TAKE ONE TABLET BY MOUTH DAILY 11/05/2015 11/04/2015 Inactive Claritin-D 24 Hour 10 mg-240 mg tablet,extended release RxNorm: 3902705 Tablet(s) TAKE ONE TABLET BY MOUTH DAILY 11/05/2015 01/06/2016 Inactive Claritin-D 24 Hour 10 mg-240 mg tablet,extended release RxNorm: 9808434 Tablet(s) TAKE ONE TABLET BY MOUTH DAILY 10/30/2015 03/10/2016 Inactive hydrocodone 5 mg-acetaminophen 325 mg tablet RxNorm: 756207 1 to 2 Tablet(s) PO Q6 as needed 10/09/2015 10/16/2015 Inactive [SAVINGS FOR NON-COVERED DRUGS -- BIN: 612241, PCN: ASPROD1, Group: XXXXX, ID# [id number], Questions: . THIS IS NOT INSURANCE.] Effexor 75 mg tablet RxNorm: 967144 TAKE ONE TABLET BY MOUTH DAILY 10/05/2015 12/31/2015 Inactive simvastatin 40 mg tablet RxNorm: 214274 1 Tablet(s) PO QHS 01/31/2016 Inactive hydrocodone 5 mg-acetaminophen 325 mg tablet RxNorm: 737661 1 to 2 Tablet(s) PO Q6 as needed 09/15/2015 09/22/2015 Inactive [SAVINGS FOR NON-COVERED DRUGS -- BIN: 361312, PCN: ASPROD1, Group: XXXXX, ID# [id number], Questions: . THIS IS NOT INSURANCE.] Valium 5 mg tablet RxNorm: 423055 Tablet(s) TAKE ONE TABLET BY MOUTH EVERY NIGHT AT BEDTIME 09/08/2015 04/17/2018 Inactive enalapril 5 mg-hydrochlorothiazide 12.5 mg tablet RxNorm: 156915 Tablet(s) TAKE ONE TABLET BY MOUTH DAILY 08/21/201512/17 Inactive diclofenac sodium 75 mg tablet,delayed release RxNorm: 667969 1 Tablet(s) PO BID 08/21/2015 12/18/2015 Inactive hydrocodone 5 mg-acetaminophen 325 mg tablet RxNorm: 740821 1 to 2 Tablet(s) PO Q6 as needed 08/13/2015 08/20/2015 Inactive [SAVINGS FOR NON-COVERED DRUGS -- BIN: 365056, PCN: ASPROD1, Group: XXXXX, ID# [id number], Questions: . THIS IS NOT INSURANCE.] clindamycin 300 mg capsule RxNorm: 673451 1 Capsule(s) PO TID 08/06/2015 08/10/2015 Inactive Claritin-D 24 Hour 10 mg-240 mg tablet,extended release RxNorm: 5386405 Tablet(s) TAKE ONE TABLET BY MOUTH DAILY 07/23/2015 10/20/2015 Inactive hydrocodone 5 mg-acetaminophen 325 mg tablet RxNorm: 024396 1 to 2 Tablet(s) PO Q6 as needed 07/23/2015 07/30/2015 Inactive [SAVINGS FOR NON-COVERED DRUGS -- BIN: 800599, PCN: ASPROD1, Group: XXXXX, ID# [id number], Questions: . THIS IS NOT INSURANCE.] Claritin-D 24 Hour 10 mg-240 mg tablet,extended release RxNorm: 2130121 TAKE ONE TABLET BY MOUTH DAILY 07/22/20152015 Inactive Valium 5 mg tablet RxNorm: 731529 Tablet(s) TAKE ONE TABLET BY MOUTH EVERY NIGHT AT BEDTIME 07/22/2015 04/17/2018 Inactive Claritin-D 24 Hour 10 mg-240 mg tablet,extended release RxNorm: 2400801 TAKE ONE TABLET BY MOUTH DAILY 07/20/20152015 Inactive Cymbalta 60 mg capsule,delayed release RxNorm: 722268 TAKE ONE CAPSULE BY MOUTH DAILY 07/20/2015 01/11/2016 Inactive cyclobenzaprine 10 mg tablet RxNorm: 357415 TAKE ONE TABLET BY MOUTH AT BEDTIME NEEDED 07/06/2015 08/04/2015 Inactive hydrocodone 5 mg-acetaminophen 325 mg tablet RxNorm: 711772 1 to 2 Tablet(s) PO Q6 as needed 06/23/2015 06/30/2015 Inactive [SAVINGS FOR NON-COVERED DRUGS -- BIN: 195190, PCN: ASPROD1, Group: XXXXX, ID# [id number], Questions: . THIS IS NOT INSURANCE.] Effexor 75 mg tablet RxNorm: 016176 1 Tablet(s) PO daily 201409/28/2015 Inactive hydrocodone 5 mg-acetaminophen 325 mg tablet RxNorm: 944461 1 to 2 Tablet(s) PO Q6 as needed 05/22/2015 05/29/2015 Inactive [SAVINGS FOR NON-COVERED DRUGS -- BIN: 070627, PCN: ASPROD1, Group: XXXXX, ID# [id number], Questions: . THIS IS NOT INSURANCE.] Valium 5 mg tablet RxNorm: 912789 Tablet(s) TAKE ONE TABLET BY MOUTH EVERY NIGHT AT BEDTIME 05/22/2015 04/17/2018 Inactive diclofenac sodium 75 mg tablet,delayed release RxNorm: 308497 1 Tablet(s) PO BID 05/04/2015 08/20/2015 Inactive Metanx (algal oil) 3 mg-35 mg-2 mg-90.314 mg capsule RxNorm: 1 Capsule(s) PO BID 05/04/2015 04/27/2016 Inactive enalapril 5 mg-hydrochlorothiazide 12.5 mg tablet RxNorm: 945264 TAKE ONE TABLET BY MOUTH DAILY 04/27/2015 08/20/2015 Inactive hydrocodone 5 mg-acetaminophen 325 mg tablet RxNorm: 613807 1 to 2 Tablet(s) PO Q6 as needed 04/27/2015 05/04/2015 Inactive [SAVINGS FOR NON-COVERED DRUGS -- BIN: 871852, PCN: ASPROD1, Group: XXXXX, ID# [id number], Questions: . THIS IS NOT INSURANCE.] hydrocodone 5 mg-acetaminophen 325 mg tablet RxNorm: 713030 1 to 2 Tablet(s) PO Q6 as needed 03/26/2015 04/02/2015 Inactive [SAVINGS FOR NON-COVERED DRUGS -- BIN: 718321, PCN: ASPROD1, Group: XXXXX, ID# [id number], Questions: . THIS IS NOT INSURANCE.] Claritin-D 24 Hour 10 mg-240 mg tablet,extended release RxNorm: 7772879 Tablet(s) TAKE ONE TABLET BY MOUTH DAILY 03/24/2015 07/19/2015 Inactive Valium 5 mg tablet RxNorm: 135201 TAKE ONE TABLET BY MOUTH EVERY NIGHT AT BEDTIME 03/05/2015 04/03/2015 Inactive Valium 5 mg tablet RxNorm: 155385 1 Tablet(s) PO daily as needed 03/05/2015 03/05/2015 Inactive [SAVINGS FOR NON-COVERED DRUGS -- BIN:575318, PCN: ASPROD1, Group : XXXXX, ID# [id number], Questions: . THIS IS NOT INSURANCE.] hydrocodone 5 mg-acetaminophen 325 mg tablet RxNorm: 184011 1 to 2 Tablet(s) PO Q6 as needed 02/18/2015 02/25/2015 Inactive [SAVINGS FOR NON-COVERED DRUGS -- BIN: 014762, PCN: ASPROD1, Group: XXXXX, ID# [id number], Questions: . THIS IS NOT INSURANCE.] enalapril 5 mg-hydrochlorothiazide 12.5 mg tablet RxNorm: 562571 1 Tablet(s) PO daily 01/30/2015 04/26/2015 Inactive hydrocodone 5 mg-acetaminophen 325 mg tablet RxNorm: 422128 1 to 2 Tablet(s) PO Q6 as needed 01/22/2015 01/29/2015 Inactive [SAVINGS FOR NON-COVERED DRUGS -- BIN: 702522, PCN: ASPROD1, Group: XXXXX, ID# [id number], Questions: . THIS IS NOT INSURANCE.] Claritin-D 24 Hour 10 mg-240 mg tablet,extended release RxNorm: 1579102 TAKE ONE TABLET BY MOUTH DAILY 01/15/20152014 Inactive Claritin-D 24 Hour 10 mg-240 mg tablet,extended release RxNorm: 2923307 Tablet(s) TAKE ONE TABLET BY MOUTH DAILY 01/15/2015 01/14/2015 Inactive cyclobenzaprine 10 mg tablet RxNorm: 478822 1 Tablet(s) PO QHS as needed 12/29/2014 01/27/2015 Inactive hydrocodone 5 mg-acetaminophen 325 mg tablet RxNorm: 457276 1 to 2 Tablet(s) PO Q6 as needed 12/23/2014 12/30/2014 Inactive [SAVINGS FOR NON-COVERED DRUGS -- BIN: 348480, PCN: ASPROD1, Group: XXXXX, ID# [id number], Questions: . THIS IS NOT INSURANCE.] Cymbalta 60 mg capsule,delayed release RxNorm: 031950 1 Capsule(s) PO daily 12/18/2014 07/15/2015 Inactive Claritin-D 24 Hour 10 mg-240 mg tablet,extended release RxNorm: 0337606 TAKE ONE TABLET BY MOUTH DAILY 12/15/20142014 Inactive Claritin-D 24 Hour 10 mg-240 mg tablet,extended release RxNorm: 2016879 TAKE ONE TABLET BY MOUTH DAILY 12/15/20142014 Inactive Claritin-D 24 Hour 10 mg-240 mg tablet,extended release RxNorm: 6391854 TAKE ONE TABLET BY MOUTH DAILY 12/15/20142014 Inactive Claritin-D 24 Hour 10 mg-240 mg tablet,extended release RxNorm: 0845457 1 Tablet(s ) PO daily 12/10/2014 12/14/2014 Inactive hydrocodone 5 mg-acetaminophen 325 mg tablet RxNorm: 153881 1 to 2 Tablet(s) PO Q6 as needed 12/08/2014 12/22/2014 Inactive [SAVINGS FOR NON-COVERED DRUGS -- BIN: 690491, PCN: ASPROD1, Group: XXXXX, ID# [id number], Questions: . THIS IS NOT INSURANCE.] hydrocodone 5 mg-acetaminophen 325 mg tablet RxNorm: 678391 1 to 2 Tablet(s) PO Q6 as needed 11/25/2014 12/07/2014 Inactive [SAVINGS FOR NON-COVERED DRUGS -- BIN: 254456, PCN: ASPROD1, Group: XXXXX, ID# [id number], Questions: . THIS IS NOT INSURANCE.] Claritin-D 24 Hour 10 mg-240 mg tablet,extended release RxNorm: 0214323 1 Tablet(s ) PO daily 11/07/2014 12/06/2014 Inactive Claritin-D 24 Hour 10 mg-240 mg tablet,extended release RxNorm: 7993760 1 Tablet(s ) PO daily 11/07/2014 11/06/2014 Inactive hydrocodone 5 mg-acetaminophen 325 mg tablet RxNorm: 057243 1 to 2 Tablet(s) PO Q6 as needed 11/03/2014 11/24/2014 Inactive [SAVINGS FOR NON-COVERED DRUGS -- BIN: 184239, PCN: [id number], Group: XXXXX, ID# [id number], Questions: . THIS IS NOT INSURANCE.] Valium 5 mg tablet RxNorm: 554925 1 Tablet(s) PO daily as needed 10/23/2014 12/20/2014 Inactive [SAVINGS FOR NON-COVERED DRUGS -- BIN:069920, PCN: ASPROD1, Group : XXXXX, ID# [id number], Questions: . THIS IS NOT INSURANCE.] Cialis 5 mg tablet RxNorm: 165434 1/2 Tablet(s) PO daily No Stop Date Active [SAVINGS FOR NON-COVERED DRUGS -- BIN:811608, PCN: ASPROD1, Group: XXXXX, ID# [id number], Questions: . THIS IS NOT INSURANCE.] aspirin 81 mg tablet RxNorm: 049318 1 Tablet(s) PO daily No Start Date Active Effexor 75 mg tablet RxNorm: 424312 1 Tablet(s) PO daily No Start Date 05/31/2015 Inactive Valium 5 mg tablet RxNorm: 002033 1 Tablet(s) PO daily as needed No Start Date 10/22/2014 Inactive simvastatin 40 mg tablet RxNorm: 765253 1 Tablet(s) PO QHS No Start Date 10/04/2015 Inactive enalapril 5 mg-hydrochlorothiazide 12.5 mg tablet RxNorm: 488487 oral No Start Date 01/29/2015 Inactive cyclobenzaprine 10 mg tablet RxNorm: 561801 1 Tablet(s) PO as needed No Start Date 12/28/2014 Inactive Cymbalta 60 mg capsule,delayed release RxNorm: 686995 1 Capsule(s) PO daily No Start Date 12/17/2014 Inactive hydrocodone 5 mg-acetaminophen 325 mg tablet RxNorm: 148177 1 to 2 Tablet(s) PO Q6 as needed No Start Date 11/02/2014 Inactive diclofenac sodium 75 mg tablet,delayed release RxNorm: 677566 1 Tablet(s) PO BID No Start Date 2015 Inactive Cialis 5 mg tablet RxNorm: 014566 1 Tablet(s) PO daily No Start Date 10/12/2014 Inactive Medication Administered Medication Codes Instructions Start Date Status ceftriaxone 500 mg solution for injection RxNorm: 5226248 1Gram 03/16/2017 No longer Active Immunizations No Immunization data Assessments Condition Codes Effective Dates Impaired fasting glucose ICD-10: R73.01 ICD-9: 790.21 05/28/2018 Essential (primary) hypertension ICD-10: I10 ICD-9: 401.9 05/28/2018 Mixed hyperlipidemia ICD-10: E78.2 ICD-9: 272.4 05/28/2018 Encounter for screening for malignant neoplasm of prostate ICD-10: Z12.5 ICD-9: V76.44 05/28/2018 Bilateral primary osteoarthritis of knee ICD-10: [...] 07/15/2016 Cervicalgia ICD-10: M54.2 ICD-9: 723.1 08/06/2015 Other specified polyneuropathies ICD-10: G62.89 ICD-9: 356.8 08/06/2015 Major depressive disorder, single episode, unspecified ICD- 10: F32.9 ICD-9: 311 08/06/2015 Dental caries, unspecified ICD-10: K02.9 ICD-9: 521.09 08/06/2015 Morbid (severe) obesity due to excess [...] Code Item Item Code Result Date %Hba1C Vwp401 % HbA1c 05499-0 6.0 % 05/28/2018 %Hba1C Xgh373 Gluc Ave 126 mg/dL 05/28/2018 Total Psa Ord10 PSA 1.13 ng/mL 05/28/2018 Lipid Ord30 CHOL 178 mg/dL 05/28/2018 Lipid Ord30 HDL 56.0 mg/dl 05/28/2018 Lipid Ord30 TRIG 194 mg/dL 05/28/2018 Lipid Ord30 LDL 83 mg/dL 05/28/2018 Lipid Ord30 C/HDL 3.2 Ratio 05/28/2018 Comp Metabolic Kzr942 NA 140 mEq/L 05/28/2018 Comp Metabolic Smb459 K 4.7 mEq/L 05/28/2018 Comp Metabolic Khq285 CL 101 mEq/L 05/28/2018 Comp Metabolic Bbi314 CO2 30.0 mEq/L 05/28/2018 Comp Metabolic Lxm092 ANION GAP 14 05/28/2018 Comp Metabolic Hit639 GLUCOSE 103 mg/dL 05/28/2018 Comp Metabolic Okv836 Creat 1.0 mg/dL 05/28/2018 Comp Metabolic Mrn251 eGFR 83 ml/min/1.73m2 05/28/2018 Comp Metabolic Uey259 BUN 23 mg/dL 05/28/2018 Comp Metabolic Kvk677 B/C Ratio 23.5 Ratio 05/28/2018 Comp Metabolic Ukn541 CALCIUM 9.5 mg/dL 05/28/2018 Comp Metabolic Ulj949 ALK PHOS 46 U/L 05/28/2018 Comp Metabolic Uui028 AST(SGOT) 24 U/L 05/28/2018 Comp Metabolic Feg501 ALT(SGPT) 51 U/L 05/28/2018 Comp Metabolic Tbu320 BILI T 0.7 mg/dL 05/28/2018 Comp Metabolic Hql605 ALBUMIN 4.6 g/dL 05/28/2018 Comp Metabolic Pkw636 TPRO 6.7 g/dL 05/28/2018 Comp Metabolic Kjs124 GLOB 2.2 g/dL 05/28/2018 Comp Metabolic Dvn078 A/G Ratio 2.1 Ratio 05/28/2018 Comp Metabolic Ahq486 Osmo 283 mOsmo 05/28/2018 Tsh Ord6 TSH (3rd IS) 2.35 uIU/mL 05/28/2018 Cbc With Differential Ord2 WBC 5.82 K/ul 05/28/2018 Cbc With Differential Ord2 RBC 4.53 M/ul 05/28/2018 Cbc With Differential Ord2 HGB 13.9 g/dl 05/28/2018 Cbc With Differential Ord2 Neut% 70.1 % 05/28/2018 Cbc With Differential Ord2 HCT 43.0 % 05/28/2018 Cbc With Differential Ord2 Lymph% 15.1 % 05/28/2018 Cbc With Differential Ord2 MCV 94.9 fl 05/28/2018 Cbc With Differential Ord2 MCH 30.7 pg 05/28/2018 Cbc With Differential Ord2 [place]% 11.2 % 05/28/2018 Cbc With Differential Ord2 Eos% 3.1 % 05/28/2018 Cbc With Differential Ord2 MCHC 32.3 pg 05/28/2018 Cbc With Differential Ord2 PLT 208 K/ul 05/28/2018 Cbc With Differential Ord2 Baso% 0.5 % 05/28/2018 Cbc With Differential Ord2 RDW 14.3 % 05/28/2018 Cbc With Differential Ord2 Neut ABS# 4.08 K/ul 05/28/2018 Cbc With Differential Ord2 Lymph ABS# 0.88 K/ul 05/28/2018 Cbc With Differential Ord2 [place] ABS# 0.7 K/ul 05/28/2018 Cbc With Differential Ord2 Eos ABS# 0.2 K/ul 05/28/2018 Cbc With Differential Ord2 Baso ABS# 0.0 K/ul 05/28/2018 Hepatitis C Antibody With Reflex For Hcv Antibody Verificat 074556 HEPATITIS C ANTIBODY NEGATIVE 07/19/2016 Lipid Ord30 CHOL 180 mg/dL 07/18/2016 Lipid Ord30 HDL 56.0 mg/dl 07/18/2016 Lipid Ord30 TRIG 153 mg/dL 07/18/2016 Lipid Ord30 LDL 93 mg/dL 07/18/2016 Lipid Ord30 C/HDL 3.2 Ratio 07/18/2016 Comp Metabolic Pgi832 NA 136 mEq/L 07/18/2016 Comp Metabolic Kip928 K 4.3 mEq/L 07/18/2016 Comp Metabolic Fax195 CL 100 mEq/L 07/18/2016 Comp Metabolic Awl421 CO2 30.0 mEq/L 07/18/2016 Comp Metabolic Hxp468 ANION GAP 10 07/18/2016 Comp Metabolic Ecq098 GLUCOSE 104 mg/dL 07/18/2016 Comp Metabolic Xsa201 Creat 1.0 mg/dL 07/18/2016 Comp Metabolic Cix935 eGFR 81 ml/min/1.73m2 07/18/2016 Comp Metabolic Bdg787 BUN 21 mg/dL 07/18/2016 Comp Metabolic Kkd973 B/C Ratio 20.8 Ratio 07/18/2016 Comp Metabolic Sih700 CALCIUM 9.5 mg/dL 07/18/2016 Comp Metabolic Atw638 ALK PHOS 45 U/L 07/18/2016 Comp Metabolic Bss880 AST(SGOT) 26 U/L 07/18/2016 Comp Metabolic Fmj419 ALT(SGPT) 52 U/L 07/18/2016 Comp Metabolic Qcm059 BILI T 0.8 mg/dL 07/18/2016 Comp Metabolic Hnp522 ALBUMIN 4.7 g/dL 07/18/2016 Comp Metabolic Jcc627 TPRO 6.9 g/dL 07/18/2016 Comp Metabolic Oab485 GLOB 2.2 g/dL 07/18/2016 Comp Metabolic Mgt133 A/G Ratio 2.2 Ratio 07/18/2016 Comp Metabolic Ehu131 Osmo 275 mOsmo 07/18/2016 Cbc With Differential Ord2 WBC 4.66 K/ul 07/18/2016 Cbc With Differential Ord2 RBC 4.51 M/ul 07/18/2016 Cbc With Differential Ord2 HGB 14.2 g/dl 07/18/2016 Cbc With Differential Ord2 Neut% 70.6 % 07/18/2016 Cbc With Differential Ord2 HCT 42.4 % 07/18/2016 Cbc With Differential Ord2 Lymph% 14.8 % 07/18/2016 Cbc With Differential Ord2 MCV 94.0 fl 07/18/2016 Cbc With Differential Ord2 [place]% 11.2 % 07/18/2016 Cbc With Differential Ord2 MCH 31.5 pg 07/18/2016 Cbc With Differential Ord2 MCHC 33.5 pg 07/18/2016 Cbc With Differential Ord2 Eos% 3.2 % 07/18/2016 Cbc With Differential Ord2 PLT 191 K/ul 07/18/2016 Cbc With Differential Ord2 Baso% 0.2 % 07/18/2016 Cbc With Differential Ord2 RDW 14.4 % 07/18/2016 Cbc With Differential Ord2 Neut ABS# 3.29 K/ul 07/18/2016 Cbc With Differential Ord2 Lymph ABS# 0.69 K/ul 07/18/2016 Cbc With Differential Ord2 [place] ABS# 0.5 K/ul 07/18/2016 Cbc With Differential Ord2 Eos ABS# 0.2 K/ul 07/18/2016 Cbc With Differential Ord2 Baso ABS# 0.0 K/ul 07/18/2016 Tsh Ord6 hTSH II 1.99 uIU/mL 07/18/2016 Total Psa Ord10 PSA 0.75 ng/mL 07/18/2016 %Hba1C Lih701 % HbA1c 81696-1 5.8 % 07/18/2016 %Hba1C Dgb929 Gluc Ave 120 mg/dL 07/18/2016 Review of [...] Code : 8480-6 BMI: 32.7 Code : 75181-0 Heart Rate 1 : 85 bpm Height: 5'10" SpO2: 99% Weight: 228 lbs 10/20/2017 Blood Pressure 1: 138/78 Code : 8480-6 BMI: 32.4 Code : 94616-6 Heart Rate 1 : 80 bpm Height: 5'10" SpO2: 98% Weight: 226 lbs 03/20/2017 Blood Pressure 1: 134/72 Code : 8480-6 Heart Rate 1: 87 bpm Height: 5'10" SpO2: 97% 03/16/2017 Blood Pressure 1: 150/84 Code : 8480-6 BMI: 32.4 Code : 63666-2 Heart Rate 1 : 98 bpm Height: 5'10" SpO2: 97% Weight: 226 lbs 03/10/2017 Blood Pressure 1: 140/72 Code : 8480-6 BMI: 32.4 Code : 84847-8 Heart Rate 1 : 81 bpm Height: 5'10" SpO2: 97% Weight: 226 lbs 11/16/2016 Blood Pressure 1: 142/80 Code : 8480-6 BMI: 32.1 Code : 07540-1 Heart Rate 1 : 95 bpm Height: 5'10" SpO2: 98% Weight: 224 lbs 07/15/2016 Blood Pressure 1: 130/78 Code : 8480-6 BMI: 32.0 Code : 75689-9 Heart Rate 1 : 85 bpm Height: 5'10" SpO2: 95% Weight: 223 lbs 03/08/2016 Blood Pressure 1: 138/84 Code : 8480-6 BMI: 31.6 Code : 57789-0 Heart Rate 1 : 86 bpm Height: 5'10" SpO2: 98% Weight: 220 lbs 11/26/2015 Blood Pressure 1: 132/82 Code : 8480-6 BMI: 31.6 Code : 54465-9 Height: 5'10 " Weight: 220 lbs 08/06/2015 Blood Pressure 1: 138/74 Code : 8480-6 BMI: 31.0 Code : 49490-5 Heart Rate 1 : 87 bpm Height: 5'10" SpO2: 95% Weight: 216 lbs 05/04/2015 Blood Pressure 1: 128/80 Code : 8480-6 BMI: 33.6 Code : 96233-8 Heart Rate 1 : 94 bpm Height: 5'10" SpO2: 97% Weight: 234 lbs 11/06/2014 Blood Pressure 1: 132/92 Code : 8480-6 BMI: 31.1 Code : 83071-8 Heart Rate 1 : 88 bpm Height: [...] Low back pain[ICD10: M54.5] Julianna Mcfarlane MD, [facility] CPT-4 : 64325 05/24/2018 [id number] EST. PATIENT, LEVEL IV Diagnosis: Bilateral primary osteoarthritis of knee[ICD10: M17.0] Julianna Mcfarlane MD, [facility] CPT-4: 10582 10/20/2017 [id number] EST. PATIENT, LEVEL IV Diagnosis: Periapical abscess without sinus[ICD10: K04.7] Diagnosis: Cellulitis and abscess of mouth[ICD10: K12.2] [facility] CPT-4: 57685 03/20/2017 ([id number]) 67742 EST. PATIENT, LEVEL III Diagnosis: Periapical abscess without sinus[ICD10: K04.7] Diagnosis: Cellulitis and abscess of mouth[ICD10: K12.2] Mayte Mcfarlane MD, [facility] CPT-4: 22590 03/16/2017 ([id number]) 95280 EST. PATIENT, LEVEL III Diagnosis: Periapical abscess without sinus[ICD10: K04.7] Niya Mcfarlane MD, [facility] CPT-4: 63428 03/10/2017 ([id number]) 29894 EST. PATIENT, LEVEL IV Diagnosis: Essential (primary) hypertension[ICD10: I10] Diagnosis: Low back pain[ICD10: M54.5] Mayte Mcfarlane MD, [facility] CPT- 4: 27108 11/16/2016 ([id number]) 16843 EST. PATIENT, LEVEL IV Diagnosis: Mixed hyperlipidemia[ICD10: E78.2] Diagnosis: Essential (primary) hypertension[ICD10: I10] Diagnosis: Impaired fasting glucose[ICD10: R73.01] Diagnosis: Encounter for screening for malignant neoplasm of prostate[ICD10: Z12.5] Diagnosis: Encounter for screening for other viral diseases[ICD10: Z11.59] Diagnosis: Drug induced constipation[ICD10: K59.03] Niya Mcfarlane MD, [facility] CPT-4: 64924 07/15/2016 ([id number]) 47119 EST. PATIENT, LEVEL III Diagnosis: Bilateral primary osteoarthritis of knee[ICD10: M17.0] Niya Mcfarlane MD, [facility] CPT-4: 45024 03/08/2016 ([id number]) 26014 EST. PATIENT, LEVEL III Diagnosis: Bilateral primary osteoarthritis of knee[ICD10: M17.0] Niya Mcfarlane MD, [facility] CPT-4: 43959 11/26/2015 [id number] EST. PATIENT, LEVEL IV Diagnosis: Cervicalgia[ICD10: M54.2] Diagnosis: Other specified polyneuropathies[ICD10: G62.89] Diagnosis: Dental caries, unspecified[ICD10: K02.9] Diagnosis: Major depressive disorder, single episode, unspecified[ICD10: F32.9] Niya Mcfarlane MD, [facility] CPT-4: 15400 08/06/2015 ([id number]) 77128 EST. PATIENT, LEVEL IV Diagnosis: Mixed hyperlipidemia[ICD10: E78.2] Diagnosis: Idiopathic gout, unspecified ankle and foot[ICD10: M10.079] Diagnosis: Other specified polyneuropathies[ICD10: G62.89] Diagnosis: Morbid (severe) obesity due to excess calories[ICD10: E66.01] [facility] CPT-4: 26637 05/04/2015 ([id number]) OFFICE VISIT, NEW - LEVEL 4 Diagnosis: GOUT[ICD9: 274.9] Diagnosis: Sinusitis, acute[ICD9: 461.9] Diagnosis: HYPERLIPIDEMIA[ICD9: 272.4] Mayte Mcfarlane MD, [facility] CPT- 4: 98001 11/06/2014 Plan of Care Planned Activity Notes [...] over- medication. 05/24/2018 Appointment: Julianna Stanford WPtel: [address] [place], [place] [phone] (15 min) Moderate 05/24/2018 Patient Education: Patient Medication Summary Completed 05/24/2018 Patient Education: Back Pain Completed 05/24/2018 Appointment: Niya Bryant WPtel: [address] [place], [place] [phone] [place] (15 min) Moderate 05/21/2018 Visit Plan: OA knees - pt has chronic pain - has been maintained on current medications, has not sought out other medications, only uses PRN pain medications as directed, and understands the consequences of over- medication. 10/20/2017 Appointment: Julianna Stanford WPtel: [facility] (30 min) Complex 10/20/2017 Patient Education: Patient Medication Summary Completed 10/20/2017 Appointment: Julianna Stanford WPtel: [address] [place], [place] [phone] (15 min) Moderate 10/19/2017 Visit Plan: Cellulitis/Abscess - continue with current treatment course - restart keflex as patient had improvement of symptoms on the rocephin. continue with clindamycin and increase probiotic to tid dosing. Keep follow up appointment with Dr. Hendrix on 03/28. Notify clinic with any changes or concerns, or with any questions. 03/20/2017 Appointment: Julianna Stanford WPtel: [phone] [phone] (30 min) Complex 03/20/2017 Patient Education: Patient [...] tid dosing. 03/16/2017 Appointment: Mayte Mcfarlane WPtel: [phone] [phone] (15 min) Moderate 03/16/2017 Patient Education: Patient Medication Summary Completed 03/16/2017 Visit Plan: Abscessed tooth-discussed with Dr Mcfarlane- plan for IV abx x 3 days-will start with clindamycin and rocephin today and continue rocephin Monday and Monday-will increase dose of oral clindamycin - rx sent to patient's pharmacy and instructed on use. Patient verbalized understanding of plan. 03/10/2017 Appointment: Niya Bryant WPtel: [phone] [phone] (15 min) Moderate 03/10/2017 Patient Education: Patient [...] they worsen. 11/16/2016 Appointment: Mayte Mcfarlane WPtel: [facility] (15 min) Moderate 11/16/2016 Patient Education: Patient [...] hgb a1c 07/15/2016 Appointment: Ni[facility] Bryant [facility]Ptel[phone] (15 min) Moderate 07/15/2016 Patient Education: Patient Medication Summary Completed 07/15/2016 Patient Education: Obesity Completed 07/15/2016 Patient Education: Hypertension Completed 07/15/2016 Visit Plan: OA knees - pt has chronic pain - has been maintained on current medications, has not sought out other medications, only uses PRN pain medications as directed, and understands the consequences of over- medication. 03/08/2016 Appointment: Niya Bryant WPtel[phone] (30 min) Complex 03/08/2016 Patient Education: Patient [...] Patient verbalized understanding of plan. 11/26/2015 Appointment: Bryant Niya WPtel: [phone] [phone] (30 min) Complex 11/26/2015 Patient Education: Patient [...] to medications. 11/06/2014 Appointment: [phone] [place] ([place] New Patient 11/06/2014 Patient Education: [...]
--- OUTSIDE RECORDS SUMMARY | 2018-07-11 12:45 | XMS REPORT | CCD ---
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 Number of children Unknown 3 one daughter lives locally, other children live in [facility] 05/04/2015 Marital status Unknown Danielle 11/06/[address]: 116666705 Has never smoked or chewed tobacco 11/06/2014 Alcohol history Unknown occasionally drinks alcohol 11/06/2014 Allergies, Adverse Reactions, Alerts Substance Reaction Codes Entered Date Inactivated Date Status * NO KNOWN FOOD ALLERGIES Unknown 11/06/2014 No Inactive Date Active amoxicillin RxNorm: 723 11/06/2014 No Inactive Date Active AUGMENTIN RxNorm: 059229 11/06/2014 No Inactive Date Active Past Medical [...] Start Date Stop Date Status Fill Instructions hydrocodone 10 mg-acetaminophen 325 mg tablet RxNorm: 999672 1 Tablet(s) PO QID as needed tooth abscess pain or back pain 06/14/2018 07/13/2018 Active simvastatin 40 mg tablet RxNorm: 253750 TAKE ONE TABLET BY MOUTH EVERY NIGHT AT BEDTIME 06/13/2018 09/10/2018 Active enalapril 5 mg-hydrochlorothiazide 12.5 mg tablet RxNorm: 477963 TAKE ONE TABLET BY MOUTH DAILY 05/28/2018 11/23/2018 Active hydrocodone 10 mg-acetaminophen 325 mg tablet RxNorm: 413476 1 Tablet(s) PO QID as needed tooth abscess pain or back pain 05/15/2018 06/13/2018 Inactive Cymbalta 60 mg capsule,delayed release RxNorm: 039940 TAKE ONE CAPSULE BY MOUTH DAILY 05/14/2018 08/11/2018 Active diclofenac sodium 75 mg tablet,delayed release RxNorm: 210217 TAKE ONE TABLET BY MOUTH TWICE A DAY 04/23/2018 09/19/2018 Active Valium 5 mg tablet RxNorm: 991053 Tablet(s) TAKE ONE TABLET BY MOUTH EVERY NIGHT AT BEDTIME 04/18/2018 05/17/2018 Inactive hydrocodone 10 mg-acetaminophen 325 mg tablet RxNorm: 612702 1 Tablet(s) PO QID as needed tooth abscess pain or back pain 04/16/2018 05/14/2018 Inactive hydrocodone 10 mg-acetaminophen 325 mg tablet RxNorm: 019736 1 Tablet(s) PO QID as needed tooth abscess pain or back pain 03/15/2018 04/13/2018 Inactive Effexor 75 mg tablet RxNorm: 820706 TAKE ONE TABLET BY MOUTH DAILY 03/14/2018 08/10/2018 Active hydrocodone 10 mg-acetaminophen 325 mg tablet RxNorm: 774672 1 Tablet(s) PO QID as needed tooth abscess pain or back pain 02/16/2018 03/14/2018 Inactive simvastatin 40 mg tablet RxNorm: 700580 TAKE ONE TABLET BY MOUTH EVERY NIGHT AT BEDTIME 02/12/2018 06/11/2018 Inactive Cymbalta 60 mg capsule,delayed release RxNorm: 064990 TAKE ONE CAPSULE BY MOUTH DAILY 02/12/2018 05/12/2018 Inactive diclofenac sodium 75 mg tablet,delayed release RxNorm: 077726 TAKE ONE TABLET BY MOUTH TWICE A DAY 01/26/2018 04/22/2018 Inactive hydrocodone 10 mg-acetaminophen 325 mg tablet RxNorm: 209425 1 Tablet(s) PO QID as needed tooth abscess pain or back pain 01/18/2018 02/15/2018 Inactive Claritin-D 24 Hour 10 mg-240 mg tablet,extended release RxNorm: 0524958 Tablet(s) TAKE ONE TABLET BY MOUTH DAILY 01/08/2018 04/07/2018 Inactive enalapril 5 mg-hydrochlorothiazide 12.5 mg tablet RxNorm: 435542 TAKE ONE TABLET BY MOUTH DAILY 12/29/2017 05/27/2018 Inactive hydrocodone 10 mg-acetaminophen 325 mg tablet RxNorm: 600239 1 Tablet(s) PO QID as needed tooth abscess pain or back pain 12/21/2017 01/17/2018 Inactive Cymbalta 60 mg capsule,delayed release RxNorm: 595854 TAKE ONE CAPSULE BY MOUTH DAILY 12/15/2017 02/11/2018 Inactive hydrocodone 10 mg-acetaminophen 325 mg tablet RxNorm: 571344 1 Tablet(s) PO QID as needed tooth abscess pain or back pain 11/22/2017 11/21/2017 Inactive hydrocodone 10 mg-acetaminophen 325 mg tablet RxNorm: 675388 1 Tablet(s) PO QID as needed tooth abscess pain or back pain 11/22/2017 12/20/2017 Inactive Movantik 25 mg tablet RxNorm: 4138965 1 Tablet(s) PO QAM 201712/07/2017 Inactive hydrocodone 10 mg-acetaminophen 325 mg tablet RxNorm: 984475 1 Tablet(s) PO QID as needed tooth abscess pain or back pain 10/20/2017 11/18/2017 Inactive Effexor 75 mg tablet RxNorm: 255520 TAKE ONE TABLET BY MOUTH DAILY 10/10/2017 03/08/2018 Inactive diclofenac sodium 75 mg tablet,delayed release RxNorm: 223625 TAKE ONE TABLET BY MOUTH TWICE A DAY 10/02/2017 01/25/2018 Inactive hydrocodone 10 mg-acetaminophen 325 mg tablet RxNorm: 804102 1 Tablet(s) PO QID as needed tooth abscess pain or back pain 09/27/2017 10/26/2017 Inactive simvastatin 40 mg tablet RxNorm: 240410 TAKE ONE TABLET BY MOUTH EVERY NIGHT AT BEDTIME 09/13/2017 02/09/2018 Inactive Cymbalta 60 mg capsule,delayed release RxNorm: 769531 TAKE ONE CAPSULE BY MOUTH DAILY 09/13/2017 12/11/2017 Inactive Claritin-D 24 Hour 10 mg-240 mg tablet,extended release RxNorm: 4624120 Tablet(s) TAKE ONE TABLET BY MOUTH DAILY 08/28/2017 11/25/2017 Inactive Claritin-D 24 Hour 10 mg-240 mg tablet,extended release RxNorm: 0244040 TAKE ONE TABLET BY MOUTH DAILY 08/28/20172017 Inactive hydrocodone 10 mg-acetaminophen 325 mg tablet RxNorm: 028152 1 Tablet(s) PO QID as needed tooth abscess pain or back pain 08/25/2017 09/23/2017 Inactive Valium 5 mg tablet RxNorm: 199460 Tablet(s) TAKE ONE TABLET BY MOUTH EVERY NIGHT AT BEDTIME 08/07/2017 11/02/2017 Inactive Metanx (algal oil) 3 mg-35 mg-2 mg-90.314 mg capsule RxNorm: TAKE ONE CAPSULE BY MOUTH TWO TIMES DAILY 08/02/20172017 Inactive hydrocodone 10 mg-acetaminophen 325 mg tablet RxNorm: 634277 1 Tablet(s) PO QID as needed tooth abscess pain or back pain 07/27/2017 08/24/2017 Inactive enalapril 5 mg-hydrochlorothiazide 12.5 mg tablet RxNorm: 113173 TAKE ONE TABLET BY MOUTH DAILY 07/03/2017 12/28/2017 Inactive hydrocodone 10 mg-acetaminophen 325 mg tablet RxNorm: 853318 1 Tablet(s) PO QID as needed tooth abscess pain or back pain 06/23/2017 07/22/2017 Inactive hydrocodone 10 mg-acetaminophen 325 mg tablet RxNorm: 142774 1 Tablet(s) PO QID as needed tooth abscess pain or back pain 05/31/2017 06/22/2017 Inactive diclofenac sodium 75 mg tablet,delayed release RxNorm: 595637 TAKE ONE TABLET BY MOUTH TWICE A DAY 05/29/2017 09/25/2017 Inactive Valium 5 mg tablet RxNorm: 964982 Tablet(s) TAKE ONE TABLET BY MOUTH EVERY NIGHT AT BEDTIME 05/16/2017 04/17/2018 Inactive Cymbalta 60 mg capsule,delayed release RxNorm: 428098 TAKE ONE CAPSULE BY MOUTH DAILY 05/15/2017 09/11/2017 Inactive hydrocodone 10 mg-acetaminophen 325 mg tablet RxNorm: 698703 1 Tablet(s) PO QID as needed tooth abscess pain or back pain 2017 05/30/2017 Inactive Claritin-D 24 Hour 10 mg-240 mg tablet,extended release RxNorm: 0738820 Tablet(s) TAKE ONE TABLET BY MOUTH DAILY 04/19/2017 07/17/2017 Inactive hydrocodone 5 mg-acetaminophen 325 mg tablet RxNorm: 011876 1-2 Tablet(s) PO Q6 as needed 04/18/2017 05/02/2017 Inactive Effexor 75 mg tablet RxNorm: 774668 TAKE ONE TABLET BY MOUTH DAILY 04/13/2017 10/09/2017 Inactive Keflex 500 mg capsule RxNorm: 720707 1 Capsule(s) PO TID 201603/26/2017 Inactive clindamycin 300 mg capsule RxNorm: 856569 1 Capsule(s) PO TID 03/20/2017 03/26/2017 Inactive ceftriaxone 500 mg solution for injection RxNorm: 8898123 1 Gram(s) Inj 03/16/2017 03/16/2017 Inactive clindamycin 300 mg capsule RxNorm: 274209 1 Capsule(s) PO TID 03/16/2017 03/19/2017 Inactive hydrocodone 5 mg-acetaminophen 325 mg tablet RxNorm: 228236 1-2 Tablet(s) PO Q6 as needed 03/16/2017 03/16/2017 Inactive Keflex 500 mg capsule RxNorm: 224008 1 Capsule(s) PO TID 201603/19/2017 Inactive hydrocodone 10 mg-acetaminophen 325 mg tablet RxNorm: 079994 1 Tablet(s) PO QID as needed tooth abscess pain or back pain 03/16/2017 04/14/2017 Inactive simvastatin 40 mg tablet RxNorm: 793213 TAKE ONE TABLET BY MOUTH EVERY NIGHT AT BEDTIME 03/13/2017 09/08/2017 Inactive clindamycin 300 mg capsule RxNorm: 001203 1 Capsule(s) PO TID 03/10/2017 03/15/2017 Inactive hydrocodone 5 mg-acetaminophen 325 mg tablet RxNorm: 987340 1-2 Tablet(s) PO Q6 as needed 03/03/2017 03/15/2017 Inactive hydrocodone 5 mg-acetaminophen 325 mg tablet RxNorm: 204917 1 to 2 Tablet(s) PO Q6 as needed 02/15/2017 02/25/2017 Inactive hydrocodone 5 mg-acetaminophen 325 mg tablet RxNorm: 772083 1 to 2 Tablet(s) PO Q6 as needed 02/02/2017 02/12/2017 Inactive enalapril 5 mg-hydrochlorothiazide 12.5 mg tablet RxNorm: 598035 TAKE ONE TABLET BY MOUTH DAILY 01/23/2017 06/21/2017 Inactive diclofenac sodium 75 mg tablet,delayed release RxNorm: 959505 TAKE ONE TABLET BY MOUTH TWICE A DAY 01/23/2017 05/22/2017 Inactive hydrocodone 5 mg-acetaminophen 325 mg tablet RxNorm: 606814 1 to 2 Tablet(s) PO Q6 as needed 01/12/2017 01/22/2017 Inactive hydrocodone 5 mg-acetaminophen 325 mg tablet RxNorm: 974404 1 to 2 Tablet(s) PO Q6 as needed 12/29/2016 01/08/2017 Inactive hydrocodone 5 mg-acetaminophen 325 mg tablet RxNorm: 765858 1 to 2 Tablet(s) PO Q6 as needed 12/16/2016 12/26/2016 Inactive Cymbalta 60 mg capsule,delayed release RxNorm: 391262 TAKE ONE CAPSULE BY MOUTH DAILY 12/14/2016 05/12/2017 Inactive hydrocodone 5 mg-acetaminophen 325 mg tablet RxNorm: 656145 1 to 2 Tablet(s) PO Q6 as needed 11/30/2016 12/10/2016 Inactive Voltaren 1 % topical gel RxNorm: 108499 2 Gram(s) TOP QID bilateral SI joints 11/16/2016 01/14/2017 Inactive diclofenac sodium 75 mg tablet,delayed release RxNorm: 972740 TAKE ONE TABLET BY MOUTH TWICE A DAY 10/31/2016 01/22/2017 Inactive hydrocodone 5 mg-acetaminophen 325 mg tablet RxNorm: 219652 1 to 2 Tablet(s) PO Q6 as needed 10/27/2016 11/06/2016 Inactive hydrocodone 5 mg-acetaminophen 325 mg tablet RxNorm: 403863 1 to 2 Tablet(s) PO Q6 as needed 10/05/2016 10/15/2016 Inactive Effexor 75 mg tablet RxNorm: 374699 TAKE ONE TABLET BY MOUTH DAILY 10/03/2016 03/31/2017 Inactive Claritin-D 24 Hour 10 mg-240 mg tablet,extended release RxNorm: 7415778 Tablet(s) TAKE ONE TABLET BY MOUTH DAILY 09/26/2016 12/24/2016 Inactive hydrocodone 5 mg-acetaminophen 325 mg tablet RxNorm: 119677 1 to 2 Tablet(s) PO Q6 as needed 09/09/2016 09/19/2016 Inactive hydrocodone 5 mg-acetaminophen 325 mg tablet RxNorm: 640392 1 to 2 Tablet(s) PO Q6 as needed 08/19/2016 08/29/2016 Inactive hydrocodone 5 mg-acetaminophen 325 mg tablet RxNorm: 810078 1 to 2 Tablet(s) PO Q6 as needed 08/01/2016 08/11/2016 Inactive enalapril 5 mg-hydrochlorothiazide 12.5 mg tablet RxNorm: 211456 Tablet(s) TAKE ONE TABLET BY MOUTH DAILY 07/18/201601/13 Inactive Movantik 25 mg tablet RxNorm: 0169730 1 Tablet(s) PO QAM 201611/07/2017 Inactive hydrocodone 5 mg-acetaminophen 325 mg tablet RxNorm: 404304 1 to 2 Tablet(s) PO Q6 as needed 07/15/2016 07/25/2016 Inactive diclofenac sodium 75 mg tablet,delayed release RxNorm: 244176 TAKE ONE TABLET BY MOUTH TWICE A DAY 06/27/2016 10/24/2016 Inactive hydrocodone 5 mg-acetaminophen 325 mg tablet RxNorm: 458656 1 to 2 Tablet(s) PO Q6 as needed 06/16/2016 06/26/2016 Inactive Claritin-D 24 Hour 10 mg-240 mg tablet,extended release RxNorm: 8857390 Tablet(s) TAKE ONE TABLET BY MOUTH DAILY 06/10/2016 08/08/2016 Inactive Metanx (algal oil) 3 mg-35 mg-2 mg-90.314 mg capsule RxNorm: Capsule(s) TAKE ONE CAPSULE BY MOUTH TWO TIMES DAILY 06/02/2016 05/27/2017 Inactive hydrocodone 5 mg-acetaminophen 325 mg tablet RxNorm: 574789 1 to 2 Tablet(s) PO Q6 as needed 05/27/2016 06/06/2016 Inactive Valium 5 mg tablet RxNorm: 608742 Tablet(s) TAKE ONE TABLET BY MOUTH EVERY NIGHT AT BEDTIME 05/16/2016 07/14/2016 Inactive Metanx (algal oil) 3 mg-35 mg-2 mg-90.314 mg capsule RxNorm: TAKE ONE CAPSULE BY MOUTH TWO TIMES DAILY 05/11/20162015 Inactive hydrocodone 5 mg-acetaminophen 325 mg tablet RxNorm: 835111 1 to 2 Tablet(s) PO Q6 as needed 04/25/2016 05/02/2016 Inactive [SAVINGS FOR NON-COVERED DRUGS -- BIN: [id number], PCN: ASPROD1, Group: XXXXX, ID# [id number], Questions: . THIS IS NOT INSURANCE.] hydrocodone 5 mg-acetaminophen 325 mg tablet RxNorm: 462891 1 to 2 Tablet(s) PO Q6 as needed 04/01/2016 04/08/2016 Inactive [SAVINGS FOR NON-COVERED DRUGS -- BIN: 646828, PCN: ASPROD1, Group: XXXXX, ID# [id number], Questions: . THIS IS NOT INSURANCE.] diclofenac sodium 75 mg tablet,delayed release RxNorm: 519322 TAKE ONE TABLET BY MOUTH TWICE A DAY 03/21/2016 06/18/2016 Inactive enalapril 5 mg-hydrochlorothiazide 12.5 mg tablet RxNorm: 253367 TAKE ONE TABLET BY MOUTH DAILY 03/21/2016 07/17/2016 Inactive Claritin-D 24 Hour 10 mg-240 mg tablet,extended release RxNorm: 6010161 Tablet(s) TAKE ONE TABLET BY MOUTH DAILY 03/11/2016 06/08/2016 Inactive hydrocodone 5 mg-acetaminophen 325 mg tablet RxNorm: 766148 1 to 2 Tablet(s) PO Q6 as needed 03/08/2016 03/15/2016 Inactive [SAVINGS FOR NON-COVERED DRUGS -- BIN: 631169, PCN: ASPROD1, Group: XXXXX, ID# [id number], Questions: . THIS IS NOT INSURANCE.] simvastatin 40 mg tablet RxNorm: 499324 1 Tablet(s) PO QHS 10/03/2016 Inactive Effexor 75 mg tablet RxNorm: 671976 Tablet(s) TAKE ONE TABLET BY MOUTH DAILY 03/08/2016 10/02/2016 Inactive simvastatin 40 mg tablet RxNorm: 001771 TAKE ONE TABLET BY MOUTH EVERY NIGHT AT BEDTIME 02/05/2016 05/04/2016 Inactive Request already responded to by other means (e.g. phone or fax) hydrocodone 5 mg-acetaminophen 325 mg tablet RxNorm: 558926 1 to 2 Tablet(s) PO Q6 as needed 02/02/2016 02/09/2016 Inactive [SAVINGS FOR NON-COVERED DRUGS -- BIN: 212964, PCN: ASPROD1, Group: XXXXX, ID# [id number], Questions: . THIS IS NOT INSURANCE.] simvastatin 40 mg tablet RxNorm: 814772 1 Tablet(s) PO QHS 03/07/2016 Inactive Cymbalta 60 mg capsule,delayed release RxNorm: 070311 TAKE ONE CAPSULE BY MOUTH DAILY 01/14/2016 06/11/2016 Inactive Request already responded to by other means ( e.g. phone or fax) Claritin-D 24 Hour 10 mg-240 mg tablet,extended release RxNorm: 0691083 Tablet(s) TAKE ONE TABLET BY MOUTH DAILY 01/14/2016 02/12/2016 Inactive hydrocodone 5 mg-acetaminophen 325 mg tablet RxNorm: 640180 1 to 2 Tablet(s) PO Q6 as needed 01/14/2016 01/21/2016 Inactive [SAVINGS FOR NON-COVERED DRUGS -- BIN: 693892, PCN: ASPROD1, Group: XXXXX, ID# [id number], Questions: . THIS IS NOT INSURANCE.] Claritin-D 24 Hour 10 mg-240 mg tablet,extended release RxNorm: 3615497 TAKE ONE TABLET BY MOUTH DAILY 01/14/20162015 Inactive Cymbalta 60 mg capsule,delayed release RxNorm: 716700 Capsule(s) TAKE ONE CAPSULE BY MOUTH DAILY 01/12/2016 01/13/2016 Inactive Claritin-D 24 Hour 10 mg-240 mg tablet,extended release RxNorm: 4484382 TAKE ONE TABLET BY MOUTH DAILY 01/11/20162015 Inactive Claritin-D 24 Hour 10 mg-240 mg tablet,extended release RxNorm: 2336134 TAKE ONE TABLET BY MOUTH DAILY 01/11/20162015 Inactive Claritin-D 24 Hour 10 mg-240 mg tablet,extended release RxNorm: 6200993 TAKE ONE TABLET BY MOUTH DAILY 01/07/20162015 Inactive Effexor 75 mg tablet RxNorm: 373514 TAKE ONE TABLET BY MOUTH DAILY 01/01/2016 02/29/2016 Inactive diclofenac sodium 75 mg tablet,delayed release RxNorm: 768655 TAKE ONE TABLET BY MOUTH TWICE A DAY 12/23/2015 03/20/2016 Inactive enalapril 5 mg-hydrochlorothiazide 12.5 mg tablet RxNorm: 625615 TAKE ONE TABLET BY MOUTH DAILY 12/23/2015 03/20/2016 Inactive hydrocodone 5 mg-acetaminophen 325 mg tablet RxNorm: 661056 1 to 2 Tablet(s) PO Q6 as needed 12/22/2015 12/29/2015 Inactive [SAVINGS FOR NON-COVERED DRUGS -- BIN: 753352, PCN: ASPROD1, Group: XXXXX, ID# [id number], Questions: . THIS IS NOT INSURANCE.] Valium 5 mg tablet RxNorm: 753654 Tablet(s) TAKE ONE TABLET BY MOUTH EVERY NIGHT AT BEDTIME 12/01/2015 04/17/2018 Inactive hydrocodone 5 mg-acetaminophen 325 mg tablet RxNorm: 193841 1 to 2 Tablet(s) PO Q6 as needed 11/30/2015 12/07/2015 Inactive [SAVINGS FOR NON-COVERED DRUGS -- BIN: 033501, PCN: ASPROD1, Group: XXXXX, ID# [id number], Questions: . THIS IS NOT INSURANCE.] hydrocodone 5 mg-acetaminophen 325 mg tablet RxNorm: 270613 1 to 2 Tablet(s) PO Q6 as needed 11/09/2015 11/16/2015 Inactive [SAVINGS FOR NON-COVERED DRUGS -- BIN: 436431, PCN: ASPROD1, Group: XXXXX, ID# [id number], Questions: . THIS IS NOT INSURANCE.] Claritin-D 24 Hour 10 mg-240 mg tablet,extended release RxNorm: 5572007 Tablet(s) TAKE ONE TABLET BY MOUTH DAILY 11/05/2015 11/04/2015 Inactive Claritin-D 24 Hour 10 mg-240 mg tablet,extended release RxNorm: 0545603 Tablet(s) TAKE ONE TABLET BY MOUTH DAILY 11/05/2015 01/06/2016 Inactive Claritin-D 24 Hour 10 mg-240 mg tablet,extended release RxNorm: 9260996 Tablet(s) TAKE ONE TABLET BY MOUTH DAILY 10/30/2015 03/10/2016 Inactive hydrocodone 5 mg-acetaminophen 325 mg tablet RxNorm: 830001 1 to 2 Tablet(s) PO Q6 as needed 10/09/2015 10/16/2015 Inactive [SAVINGS FOR NON-COVERED DRUGS -- BIN: 640168, PCN: ASPROD1, Group: XXXXX, ID# [id number], Questions: . THIS IS NOT INSURANCE.] Effexor 75 mg tablet RxNorm: 457435 TAKE ONE TABLET BY MOUTH DAILY 10/05/2015 12/31/2015 Inactive simvastatin 40 mg tablet RxNorm: 546895 1 Tablet(s) PO QHS 01/31/2016 Inactive hydrocodone 5 mg-acetaminophen 325 mg tablet RxNorm: 556752 1 to 2 Tablet(s) PO Q6 as needed 09/15/2015 09/22/2015 Inactive [SAVINGS FOR NON-COVERED DRUGS -- BIN: 146410, PCN: ASPROD1, Group: XXXXX, ID# [email or web address], Questions: . THIS IS NOT INSURANCE.] Valium 5 mg tablet RxNorm: 577628 Tablet(s) TAKE ONE TABLET BY MOUTH EVERY NIGHT AT BEDTIME 09/08/2015 04/17/2018 Inactive enalapril 5 mg-hydrochlorothiazide 12.5 mg tablet RxNorm: 918757 Tablet(s) TAKE ONE TABLET BY MOUTH DAILY 08/21/201512/17 Inactive diclofenac sodium 75 mg tablet,delayed release RxNorm: 365008 1 Tablet(s) PO BID 08/21/2015 12/18/2015 Inactive hydrocodone 5 mg-acetaminophen 325 mg tablet RxNorm: 190263 1 to 2 Tablet(s) PO Q6 as needed 08/13/2015 08/20/2015 Inactive [SAVINGS FOR NON-COVERED DRUGS -- BIN: 979153, PCN: ASPROD1, Group: XXXXX, ID# [id number], Questions: . THIS IS NOT INSURANCE.] clindamycin 300 mg capsule RxNorm: 040203 1 Capsule(s) PO TID 08/06/2015 08/10/2015 Inactive Claritin-D 24 Hour 10 mg-240 mg tablet,extended release RxNorm: 3037250 Tablet(s) TAKE ONE TABLET BY MOUTH DAILY 07/23/2015 10/20/2015 Inactive hydrocodone 5 mg-acetaminophen 325 mg tablet RxNorm: 635503 1 to 2 Tablet(s) PO Q6 as needed 07/23/2015 07/30/2015 Inactive [SAVINGS FOR NON-COVERED DRUGS -- BIN: 558569, PCN: ASPROD1, Group: XXXXX, ID# [id number], Questions: . THIS IS NOT INSURANCE.] Claritin-D 24 Hour 10 mg-240 mg tablet,extended release RxNorm: 5041474 TAKE ONE TABLET BY MOUTH DAILY 07/22/20152015 Inactive Valium 5 mg tablet RxNorm: 968229 Tablet(s) TAKE ONE TABLET BY MOUTH EVERY NIGHT AT BEDTIME 07/22/2015 04/17/2018 Inactive Claritin-D 24 Hour 10 mg-240 mg tablet,extended release RxNorm: 2419495 TAKE ONE TABLET BY MOUTH DAILY 07/20/20152015 Inactive Cymbalta 60 mg capsule,delayed release RxNorm: 475648 TAKE ONE CAPSULE BY MOUTH DAILY 07/20/2015 01/11/2016 Inactive cyclobenzaprine 10 mg tablet RxNorm: 573576 TAKE ONE TABLET BY MOUTH AT BEDTIME NEEDED 07/06/2015 08/04/2015 Inactive hydrocodone 5 mg-acetaminophen 325 mg tablet RxNorm: 826713 1 to 2 Tablet(s) PO Q6 as needed 06/23/2015 06/30/2015 Inactive [SAVINGS FOR NON-COVERED DRUGS -- BIN: 177602, PCN: ASPROD1, Group: XXXXX, ID# [id number], Questions: . THIS IS NOT INSURANCE.] Effexor 75 mg tablet RxNorm: 161289 1 Tablet(s) PO daily 201409/28/2015 Inactive hydrocodone 5 mg-acetaminophen 325 mg tablet RxNorm: 715264 1 to 2 Tablet(s) PO Q6 as needed 05/22/2015 05/29/2015 Inactive [SAVINGS FOR NON-COVERED DRUGS -- BIN: 546721, PCN: ASPROD1, Group: XXXXX, ID# [id number], Questions: . THIS IS NOT INSURANCE.] Valium 5 mg tablet RxNorm: 236469 Tablet(s) TAKE ONE TABLET BY MOUTH EVERY NIGHT AT BEDTIME 05/22/2015 04/17/2018 Inactive diclofenac sodium 75 mg tablet,delayed release RxNorm: 341167 1 Tablet(s) PO BID 05/04/2015 08/20/2015 Inactive Metanx (algal oil) 3 mg-35 mg-2 mg-90.314 mg capsule RxNorm: 1 Capsule(s) PO BID 05/04/2015 04/27/2016 Inactive enalapril 5 mg-hydrochlorothiazide 12.5 mg tablet RxNorm: 802830 TAKE ONE TABLET BY MOUTH DAILY 04/27/2015 08/20/2015 Inactive hydrocodone 5 mg-acetaminophen 325 mg tablet RxNorm: 816384 1 to 2 Tablet(s) PO Q6 as needed 04/27/2015 05/04/2015 Inactive [SAVINGS FOR NON-COVERED DRUGS -- BIN: 366718, PCN: ASPROD1, Group: XXXXX, ID# [id number], Questions: . THIS IS NOT INSURANCE.] hydrocodone 5 mg-acetaminophen 325 mg tablet RxNorm: 964778 1 to 2 Tablet(s) PO Q6 as needed 03/26/2015 04/02/2015 Inactive [SAVINGS FOR NON-COVERED DRUGS -- BIN: 030492, PCN: ASPROD1, Group: XXXXX, ID# [id number], Questions: . THIS IS NOT INSURANCE.] Claritin-D 24 Hour 10 mg-240 mg tablet,extended release RxNorm: 3001769 Tablet(s) TAKE ONE TABLET BY MOUTH DAILY 03/24/2015 07/19/2015 Inactive Valium 5 mg tablet RxNorm: 531659 TAKE ONE TABLET BY MOUTH EVERY NIGHT AT BEDTIME 03/05/2015 04/03/2015 Inactive Valium 5 mg tablet RxNorm: 611656 1 Tablet(s) PO daily as needed 03/05/2015 03/05/2015 Inactive [SAVINGS FOR NON-COVERED DRUGS -- BIN:723778, PCN: ASPROD1, Group : XXXXX, ID# [id number], Questions: . THIS IS NOT INSURANCE.] hydrocodone 5 mg-acetaminophen 325 mg tablet RxNorm: 763712 1 to 2 Tablet(s) PO Q6 as needed 02/18/2015 02/25/2015 Inactive [SAVINGS FOR NON-COVERED DRUGS -- BIN: 211851, PCN: ASPROD1, Group: XXXXX, ID# [id number], Questions: . THIS IS NOT INSURANCE.] enalapril 5 mg-hydrochlorothiazide 12.5 mg tablet RxNorm: 704540 1 Tablet(s) PO daily 01/30/2015 04/26/2015 Inactive hydrocodone 5 mg-acetaminophen 325 mg tablet RxNorm: 593501 1 to 2 Tablet(s) PO Q6 as needed 01/22/2015 01/29/2015 Inactive [SAVINGS FOR NON-COVERED DRUGS -- BIN: 029022, PCN: ASPROD1, Group: XXXXX, ID# [id number], Questions: . THIS IS NOT INSURANCE.] Claritin-D 24 Hour 10 mg-240 mg tablet,extended release RxNorm: 7159375 TAKE ONE TABLET BY MOUTH DAILY 01/15/20152014 Inactive Claritin-D 24 Hour 10 mg-240 mg tablet,extended release RxNorm: 8442194 Tablet(s) TAKE ONE TABLET BY MOUTH DAILY 01/15/2015 01/14/2015 Inactive cyclobenzaprine 10 mg tablet RxNorm: 112308 1 Tablet(s) PO QHS as needed 12/29/2014 01/27/2015 Inactive hydrocodone 5 mg-acetaminophen 325 mg tablet RxNorm: 883820 1 to 2 Tablet(s) PO Q6 as needed 12/23/2014 12/30/2014 Inactive [SAVINGS FOR NON-COVERED DRUGS -- BIN: 359624, PCN: ASPROD1, Group: XXXXX, ID# [id number], Questions: . THIS IS NOT INSURANCE.] Cymbalta 60 mg capsule,delayed release RxNorm: 044148 1 Capsule(s) PO daily 12/18/2014 07/15/2015 Inactive Claritin-D 24 Hour 10 mg-240 mg tablet,extended release RxNorm: 8354940 TAKE ONE TABLET BY MOUTH DAILY 12/15/20142014 Inactive Claritin-D 24 Hour 10 mg-240 mg tablet,extended release RxNorm: 0881950 TAKE ONE TABLET BY MOUTH DAILY 12/15/20142014 Inactive Claritin-D 24 Hour 10 mg-240 mg tablet,extended release RxNorm: 3489273 TAKE ONE TABLET BY MOUTH DAILY 12/15/20142014 Inactive Claritin-D 24 Hour 10 mg-240 mg tablet,extended release RxNorm: 0340573 1 Tablet(s ) PO daily 12/10/2014 12/14/2014 Inactive hydrocodone 5 mg-acetaminophen 325 mg tablet RxNorm: 802043 1 to 2 Tablet(s) PO Q6 as needed 12/08/2014 12/22/2014 Inactive [SAVINGS FOR NON-COVERED DRUGS -- BIN: 937055, PCN: ASPROD1, Group: XXXXX, ID# [id number], Questions: . THIS IS NOT INSURANCE.] hydrocodone 5 mg-acetaminophen 325 mg tablet RxNorm: 552675 1 to 2 Tablet(s) PO Q6 as needed 11/25/2014 12/07/2014 Inactive [SAVINGS FOR NON-COVERED DRUGS -- BIN: 733485, PCN: ASPROD1, Group: XXXXX, ID# [id number], Questions: . THIS IS NOT INSURANCE.] Claritin-D 24 Hour 10 mg-240 mg tablet,extended release RxNorm: 3428205 1 Tablet(s ) PO daily 11/07/2014 12/06/2014 Inactive Claritin-D 24 Hour 10 mg-240 mg tablet,extended release RxNorm: 7979604 1 Tablet(s ) PO daily 11/07/2014 11/06/2014 Inactive hydrocodone 5 mg-acetaminophen 325 mg tablet RxNorm: 282857 1 to 2 Tablet(s) PO Q6 as needed 11/03/2014 11/24/2014 Inactive [SAVINGS FOR NON-COVERED DRUGS -- BIN: 467716, PCN: ASPROD1, Group: XXXXX, ID# [id number], Questions: . THIS IS NOT INSURANCE.] Valium 5 mg tablet RxNorm: 534200 1 Tablet(s) PO daily as needed 10/23/2014 12/20/2014 Inactive [SAVINGS FOR NON-COVERED DRUGS -- BIN:436016, PCN: ASPROD1, Group : XXXXX, ID# [id number], Questions: . THIS IS NOT INSURANCE.] Cialis 5 mg tablet RxNorm: 116963 1/2 Tablet(s) PO daily No Stop Date Active [SAVINGS FOR NON-COVERED DRUGS -- BIN:194670, PCN: ASPROD1, Group: XXXXX, ID# [id number], Questions: . THIS IS NOT INSURANCE.] aspirin 81 mg tablet RxNorm: 135696 1 Tablet(s) PO daily No Start Date Active Effexor 75 mg tablet RxNorm: 044353 1 Tablet(s) PO daily No Start Date 05/31/2015 Inactive Valium 5 mg tablet RxNorm: 713212 1 Tablet(s) PO daily as needed No Start Date 10/22/2014 Inactive simvastatin 40 mg tablet RxNorm: 731486 1 Tablet(s) PO QHS No Start Date 10/04/2015 Inactive enalapril 5 mg-hydrochlorothiazide 12.5 mg tablet RxNorm: 624830 oral No Start Date 01/29/2015 Inactive cyclobenzaprine 10 mg tablet RxNorm: 090898 1 Tablet(s) PO as needed No Start Date 12/28/2014 Inactive Cymbalta 60 mg capsule,delayed release RxNorm: 114990 1 Capsule(s) PO daily No Start Date 12/17/2014 Inactive hydrocodone 5 mg-acetaminophen 325 mg tablet RxNorm: 898731 1 to 2 Tablet(s) PO Q6 as needed No Start Date 11/02/2014 Inactive diclofenac sodium 75 mg tablet,delayed release RxNorm: 608701 1 Tablet(s) PO BID No Start Date 2015 Inactive Cialis 5 mg tablet RxNorm: 515346 1 Tablet(s) PO daily No Start Date 10/12/2014 Inactive Medication Administered Medication Codes Instructions Start Date Status ceftriaxone 500 mg solution for injection RxNorm: 8277258 1Gram 03/16/2017 No longer Active Immunizations No [...] Code Item Item Code Result Date %Hba1C Wkf989 % HbA1c 69337-3 6.0 % 05/28/2018 %Hba1C Dzk416 Gluc Ave 126 mg/dL 05/28/2018 Total Psa Ord10 PSA 1.13 ng/mL 05/28/2018 Lipid Ord30 CHOL 178 mg/dL 05/28/2018 Lipid Ord30 HDL 56.0 mg/dl 05/28/2018 Lipid Ord30 TRIG 194 mg/dL 05/28/2018 Lipid Ord30 LDL 83 mg/dL 05/28/2018 Lipid Ord30 C/HDL 3.2 Ratio 05/28/2018 Comp Metabolic Ryj147 NA 140 mEq/L 05/28/2018 Comp Metabolic Lgr036 K 4.7 mEq/L 05/28/2018 Comp Metabolic Mcp280 CL 101 mEq/L 05/28/2018 Comp Metabolic Vur326 CO2 30.0 mEq/L 05/28/2018 Comp Metabolic Cno981 ANION GAP 14 05/28/2018 Comp Metabolic Put986 GLUCOSE 103 mg/dL 05/28/2018 Comp Metabolic Tzz625 Creat 1.0 mg/dL 05/28/2018 Comp Metabolic Aui809 eGFR 83 ml/min/1.73m2 05/28/2018 Comp Metabolic Lnb898 BUN 23 mg/dL 05/28/2018 Comp Metabolic Msw485 B/C Ratio 23.5 Ratio 05/28/2018 Comp Metabolic Jgv077 CALCIUM 9.5 mg/dL 05/28/2018 Comp Metabolic Fve822 ALK PHOS 46 U/L 05/28/2018 Comp Metabolic Bkr196 AST(SGOT) 24 U/L 05/28/2018 Comp Metabolic Wxa659 ALT(SGPT) 51 U/L 05/28/2018 Comp Metabolic Ill187 BILI T 0.7 mg/dL 05/28/2018 Comp Metabolic Eyr420 ALBUMIN 4.6 g/dL 05/28/2018 Comp Metabolic Efw124 TPRO 6.7 g/dL 05/28/2018 Comp Metabolic Wtm054 GLOB 2.2 g/dL 05/28/2018 Comp Metabolic Dla662 A/G Ratio 2.1 Ratio 05/28/2018 Comp Metabolic Vdv395 Osmo 283 mOsmo 05/28/2018 Tsh Ord6 TSH [...] 30.7 pg 05/28/2018 Cbc With Differential Ord2 Davie% 11.2 % 05/28/2018 Cbc With Differential Ord2 [...] 0.88 K/ul 05/28/2018 Cbc With Differential Ord2 Davie ABS# 0.7 K/ul 05/28/2018 Cbc With Differential Ord2 Eos ABS# 0.2 K/ul 05/28/2018 Cbc With Differential Ord2 Baso ABS# 0.0 K/ul 05/28/2018 Hepatitis C Antibody With Reflex For Hcv Antibody Verificat 142855 HEPATITIS C ANTIBODY NEGATIVE 07/19/2016 Lipid Ord30 CHOL 180 mg/dL 07/18/2016 Lipid Ord30 HDL 56.0 mg/dl 07/18/2016 Lipid Ord30 TRIG 153 mg/dL 07/18/2016 Lipid Ord30 LDL 93 mg/dL 07/18/2016 Lipid Ord30 C/HDL 3.2 Ratio 07/18/2016 Comp Metabolic Lvt809 NA 136 mEq/L 07/18/2016 Comp Metabolic Bod256 K 4.3 mEq/L 07/18/2016 Comp Metabolic Gzy664 CL 100 mEq/L 07/18/2016 Comp Metabolic Cni294 CO2 30.0 mEq/L 07/18/2016 Comp Metabolic Ljd930 ANION GAP 10 07/18/2016 Comp Metabolic Uwp860 GLUCOSE 104 mg/dL 07/18/2016 Comp Metabolic Hyd671 Creat 1.0 mg/dL 07/18/2016 Comp Metabolic Kno389 eGFR 81 ml/min/1.73m2 07/18/2016 Comp Metabolic Pnv412 BUN 21 mg/dL 07/18/2016 Comp Metabolic Dly623 B/C Ratio 20.8 Ratio 07/18/2016 Comp Metabolic Cdg785 CALCIUM 9.5 mg/dL 07/18/2016 Comp Metabolic Wdc815 ALK PHOS 45 U/L 07/18/2016 Comp Metabolic Lwp532 AST(SGOT) 26 U/L 07/18/2016 Comp Metabolic Dnn170 ALT(SGPT) 52 U/L 07/18/2016 Comp Metabolic Wuw228 BILI T 0.8 mg/dL 07/18/2016 Comp Metabolic Siq703 ALBUMIN 4.7 g/dL 07/18/2016 Comp Metabolic Hyy941 TPRO 6.9 g/dL 07/18/2016 Comp Metabolic Eyh863 GLOB 2.2 g/dL 07/18/2016 Comp Metabolic Pdh728 A/G Ratio 2.2 Ratio 07/18/2016 Comp Metabolic Rdo838 Osmo 275 mOsmo 07/18/2016 Cbc With Differential Ord2 WBC 4.66 K/ul 07/18/2016 Cbc With Differential Ord2 RBC 4.51 M/ul 07/18/2016 Cbc With Differential Ord2 HGB 14.2 g/dl 07/18/2016 Cbc With Differential Ord2 Neut% 70.6 % 07/18/2016 Cbc With Differential Ord2 HCT 42.4 % 07/18/2016 Cbc With Differential Ord2 MCV 94.0 fl 07/18/2016 Cbc With Differential Ord2 Lymph% 14.8 % 07/18/2016 Cbc With Differential Ord2 MCH 31.5 pg 07/18/2016 Cbc With Differential Ord2 Davie% 11.2 % 07/18/2016 Cbc With Differential Ord2 [...] 0.69 K/ul 07/18/2016 Cbc With Differential Ord2 Davie ABS# 0.5 K/ul 07/18/2016 Cbc With Differential Ord2 Eos ABS# 0.2 K/ul 07/18/2016 Cbc With Differential Ord2 Baso ABS# 0.0 K/ul 07/18/2016 Tsh Ord6 hTSH II 1.99 uIU/mL 07/18/2016 Total Psa Ord10 PSA 0.75 ng/mL 07/18/2016 %Hba1C Jqj362 % HbA1c 05535-8 5.8 % 07/18/2016 %Hba1C Lol074 Gluc Ave 120 mg/dL 07/18/2016 Review of [...] crepitus 11/06/2014 None Procedures Procedure Codes Date ROCEPHIHeriberto, PER 250 MG CPT-4: J0696 03/16/2017 Vital Signs Date Vital 05/24/2018 Blood Pressure 1: 146/74 Code : 8480-6 BMI: 32.7 Code : 20633-9 Heart Rate 1 : 85 bpm Height: 5'10" SpO2: 99% Weight: 228 lbs 10/20/2017 Blood Pressure 1: 138/78 Code : 8480-6 BMI: 32.4 Code : 83344-7 Heart Rate 1 : 80 bpm Height: 5'10" SpO2: 98% Weight: 226 lbs 03/20/2017 Blood Pressure 1: 134/72 Code : 8480-6 Heart Rate 1: 87 bpm Height: 5'10" SpO2: 97% 03/16/2017 Blood Pressure 1: 150/84 Code : 8480-6 BMI: 32.4 Code : 00790-7 Heart Rate 1 : 98 bpm Height: 5'10" SpO2: 97% Weight: 226 lbs 03/10/2017 Blood Pressure 1: 140/72 Code : 8480-6 BMI: 32.4 Code : 23168-3 Heart Rate 1 : 81 bpm Height: 5'10" SpO2: 97% Weight: 226 lbs 11/16/2016 Blood Pressure 1: 142/80 Code : 8480-6 BMI: 32.1 Code : 39160-5 Heart Rate 1 : 95 bpm Height: 5'10" SpO2: 98% Weight: 224 lbs 07/15/2016 Blood Pressure 1: 130/78 Code : 8480-6 BMI: 32.0 Code : 73905-8 Heart Rate 1 : 85 bpm Height: 5'10" SpO2: 95% Weight: 223 lbs 03/08/2016 Blood Pressure 1: 138/84 Code : 8480-6 BMI: 31.6 Code : 67050-7 Heart Rate 1 : 86 bpm Height: 5'10" SpO2: 98% Weight: 220 lbs 11/26/2015 Blood Pressure 1: 132/82 Code : 8480-6 BMI: 31.6 Code : 92951-0 Height: 5'10 " Weight: 220 lbs 08/06/2015 Blood Pressure 1: 138/74 Code : 8480-6 BMI: 31.0 Code : 95683-3 Heart Rate 1 : 87 bpm Height: 5'10" SpO2: 95% Weight: 216 lbs 05/04/2015 Blood Pressure 1: 128/80 Code : 8480-6 BMI: 33.6 Code : 85507-2 Heart Rate 1 : 94 bpm Height: 5'10" SpO2: 97% Weight: 234 lbs 11/06/2014 Blood Pressure 1: 132/92 Code : 8480-6 BMI: 31.1 Code : 83465-1 Heart Rate 1 : 88 bpm Height: [...] data Encounters Encounter Performer Location Codes Date 71974 EST. PATIENT, LEVEL III Diagnosis: Bilateral primary osteoarthritis of knee[ICD10: M17.0] Diagnosis: Low back pain[ICD10: M54.5] Julianna Mcfarlane MD, [facility] CPT-4 : 51642 05/24/2018 [id number] EST. PATIENT, LEVEL IV Diagnosis: Bilateral primary osteoarthritis of knee[ICD10: M17.0] Julianna Mcfarlane MD, [facility] CPT-4: 31279 10/20/2017 19236 EST. PATIENT, LEVEL IV Diagnosis: Periapical abscess without sinus[ICD10: K04.7] Diagnosis: Cellulitis and abscess of mouth[ICD10: K12.2] Julianna Mcfarlane MD, [facility] CPT-4: 71607 03/20/2017 [id number]) [id number] EST. PATIENT, LEVEL III Diagnosis: Periapical abscess without sinus[ICD10: K04.7] Diagnosis: Cellulitis and abscess of mouth[ICD10: K12.2] Mayte Mcfarlane MD, [facility] CPT-4: 76625 03/16/2017 ([id number]) 17255 EST. PATIENT, LEVEL III Diagnosis: Periapical abscess without sinus[ICD10: K04.7] Niya Mcfarlane MD, [facility] CPT-4: 99835 03/10/2017 ([id number]) 34117 EST. PATIENT, LEVEL IV Diagnosis: Essential (primary) hypertension[ICD10: I10] Diagnosis: Low back pain[ICD10: M54.5] Mayte Mcfarlane MD, [facility] CPT- 4: 26315 11/16/2016 ([id number]) 59607 EST. PATIENT, LEVEL IV Diagnosis: Mixed hyperlipidemia[ICD10: E78.2] Diagnosis: Essential (primary) hypertension[ICD10: I10] Diagnosis: Impaired fasting glucose[ICD10: R73.01] Diagnosis: Encounter for screening for malignant neoplasm of prostate[ICD10: Z12.5] Diagnosis: Encounter for screening for other viral diseases[ICD10: Z11.59] Diagnosis: Drug induced constipation[ICD10: K59.03] Niya Mcfarlane MD, [facility] CPT-4: 93297 07/15/2016 [id number]) 10113 EST. PATIENT, LEVEL III Diagnosis: Bilateral primary osteoarthritis of knee[ICD10: M17.0] Niya Mcfarlane MD, [facility] CPT-4: 50931 03/08/2016 ([id number]) 07040 EST. PATIENT, LEVEL III Diagnosis: Bilateral primary osteoarthritis of knee[ICD10: M17.0] Niya Mcfarlane MD, [facility] CPT-4: 04566 11/26/2015 40096 EST. PATIENT, LEVEL IV Diagnosis: Cervicalgia[ICD10: M54.2] Diagnosis: Other specified polyneuropathies[ICD10: G62.89] Diagnosis: Dental caries, unspecified[ICD10: K02.9] Diagnosis: Major depressive disorder, single episode, unspecified[ICD10: F32.9] Niya Mcfarlane MD, [facility] CPT-4: 53839 08/06/2015 ([id number]) 87665 EST. PATIENT, LEVEL IV Diagnosis: Mixed hyperlipidemia[ICD10: E78.2] Diagnosis: Idiopathic gout, unspecified ankle and foot[ICD10: M10.079] Diagnosis: Other specified polyneuropathies[ICD10: G62.89] Diagnosis: Morbid (severe) obesity due to excess calories[ICD10: E66.01] Mayte Mcfarlane MD, [facility] CPT-4: 30480 05/04/2015 ([id number]) OFFICE VISIT, NEW - LEVEL 4 Diagnosis: GOUT[ICD9: 274.9] Diagnosis: Sinusitis, acute[ICD9: 461.9] Diagnosis: HYPERLIPIDEMIA[ICD9: 272.4] Mayte Mcfarlane MD, [facility] CPT- 4: 89837 11/06/2014 Plan of Care Planned Activity Notes [...] over- medication. 05/24/2018 Appointment: Julianna Stanford WPtel: [phone] (15 min) Moderate 05/24/2018 Patient Education: Patient Medication Summary Completed 05/24/2018 Patient Education: Back Pain Completed 05/24/2018 Appointment: Niya Bryant WPtel: [phone] [place] (15 min) Moderate 05/21/2018 Visit Plan: OA knees - pt has chronic pain - has been maintained on current medications, has not sought out other medications, only uses PRN pain medications as directed, and understands the consequences of over- medication. 10/20/2017 Appointment: Julianna Stanford WPtel: [phone] [place] (30 min) Complex 10/20/2017 Patient Education: Patient Medication Summary Completed 10/20/2017 Appointment: Julianna Stanford WPtel: [facility] [place] (15 min) Moderate 10/19/2017 Visit Plan: Cellulitis/Abscess - continue with current treatment course - restart keflex as patient had improvement of symptoms on the rocephin. continue with clindamycin and increase probiotic to tid dosing. Keep follow up appointment with Dr. Hendrix on 03/28. Notify clinic with any changes or concerns, or with any questions. 03/20/2017 Appointment: Julianna Stanford WPtel: [phone] [phone] (30 min) Complex 03/20/2017 Patient Education: Patient [...] tid dosing. 03/16/2017 Appointment: Mayte Mcfarlane WPtel: [facility] (15 min) Moderate 03/16/2017 Patient Education: Patient Medication Summary Completed 03/16/2017 Visit Plan: Abscessed tooth-discussed with Dr Mcfarlane- plan for IV abx x 3 days-will start with clindamycin and rocephin today and continue rocephin Monday and Monday-will increase dose of oral clindamycin - rx sent to patient's pharmacy and instructed on use. Patient verbalized understanding of plan. 03/10/2017 Appointment: Niya Bryant WPtel: [phone] (15 min) Moderate 03/10/2017 Patient Education: Patient [...] they worsen. 11/16/2016 Appointment: Mayte Mcfarlane WPtel: [phone] [facility] (15 min) Moderate 11/16/2016 Patient Education: Patient [...] hgb a1c 07/15/2016 Appointment: Niya Bryant WPtel: [address] [place], [place] [phone] (15 min) Moderate 07/15/2016 Patient Education: Patient Medication Summary Completed 07/15/2016 Patient Education: Obesity Completed 07/15/2016 Patient Education: Hypertension Completed 07/15/2016 Visit Plan: OA knees - pt has chronic pain - has been maintained on current medications, has not sought out other medications, only uses PRN pain medications as directed, and understands the consequences of over- medication. 03/08/2016 Appointment: Niya Bryant WPtel: [address] [place], [place] [phone] (30 min) Complex 03/08/2016 Patient Education: Patient [...] of plan. 11/26/2015 [phone] (30 min) Complex 11/26/2015 Patient Education: Patient [...] to medications. 11/06/2014 [facility]ment[phone] [place] [facility] New Patient 11/06/2014 Patient Education: [...] verbalized understanding of plan. IV antibiotics today, tomorr and Monday Increase clindamycin to 300mg TID [...]
--- OUTSIDE RECORDS SUMMARY | 2018-07-11 12:47 | XMS REPORT | CCD ---
Author Author [facility] Organization [facility] Address [address] [place] [address] Phone Care Team Providers Care Welcome Wagon Host/Hostess Name Role Phone PP Unavailable CCM Unavailable Summary Purpose Interface Exchange Insurance Providers Payer name Policy type / Coverage type Covered constitution party ID Effective Begin Date Effective End Date Blue Cross Blue [facility] Blue Cross/Blue Shield [id number] Unknown Unknown Family history Father Diagnosis Age At Onset Cancer Unknown Stroke Unknown Heart Attack Unknown Hyperlipidemia Unknown Diabetes mellitus Type 2 Unknown Arthritis Unknown Heart disease Unknown Mother Diagnosis Age At Onset Arthritis Unknown Hypertension Unknown Breast cancer Unknown Sister Diagnosis Age At Onset Multiple sclerosis Unknown Social History Social History Element Codes Description Effective Dates Employment Unknown 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 Number of children Unknown 3 one daughter lives locally, other children live in [facility] 05/04/2015 Marital status Unknown Danielle 11/06/[address]: 787347403 Has never smoked or chewed tobacco 11/06/2014 Alcohol history Unknown occasionally drinks alcohol 11/06/2014 Allergies, Adverse Reactions, Alerts Substance Reaction Codes Entered Date Inactivated Date Status * NO KNOWN FOOD ALLERGIES Unknown 11/06/2014 No Inactive Date Active amoxicillin RxNorm: 723 11/06/2014 No Inactive Date Active AUGMENTIN RxNorm: 524929 11/06/2014 No Inactive Date Active Past Medical [...] Start Date Stop Date Status Fill Instructions simvastatin 40 mg tablet RxNorm: 714393 TAKE ONE TABLET BY MOUTH EVERY NIGHT AT BEDTIME 06/13/2018 09/10/2018 Active enalapril 5 mg-hydrochlorothiazide 12.5 mg tablet RxNorm: 045199 TAKE ONE TABLET BY MOUTH DAILY 05/28/2018 11/23/2018 Active hydrocodone 10 mg-acetaminophen 325 mg tablet RxNorm: 359571 1 Tablet(s) PO QID as needed tooth abscess pain or back pain 05/15/2018 06/13/2018 Inactive Cymbalta 60 mg capsule,delayed release RxNorm: 690871 TAKE ONE CAPSULE BY MOUTH DAILY 05/14/2018 08/11/2018 Active diclofenac sodium 75 mg tablet,delayed release RxNorm: 326603 TAKE ONE TABLET BY MOUTH TWICE A DAY 04/23/2018 09/19/2018 Active Valium 5 mg tablet RxNorm: 418670 Tablet(s) TAKE ONE TABLET BY MOUTH EVERY NIGHT AT BEDTIME 04/18/2018 05/17/2018 Inactive hydrocodone 10 mg-acetaminophen 325 mg tablet RxNorm: 526969 1 Tablet(s) PO QID as needed tooth abscess pain or back pain 04/16/2018 05/14/2018 Inactive hydrocodone 10 mg-acetaminophen 325 mg tablet RxNorm: 040074 1 Tablet(s) PO QID as needed tooth abscess pain or back pain 03/15/2018 04/13/2018 Inactive Effexor 75 mg tablet RxNorm: 911250 TAKE ONE TABLET BY MOUTH DAILY 03/14/2018 08/10/2018 Active hydrocodone 10 mg-acetaminophen 325 mg tablet RxNorm: 860361 1 Tablet(s) PO QID as needed tooth abscess pain or back pain 02/16/2018 03/14/2018 Inactive simvastatin 40 mg tablet RxNorm: 441387 TAKE ONE TABLET BY MOUTH EVERY NIGHT AT BEDTIME 02/12/2018 06/11/2018 Inactive Cymbalta 60 mg capsule,delayed release RxNorm: 360722 TAKE ONE CAPSULE BY MOUTH DAILY 02/12/2018 05/12/2018 Inactive diclofenac sodium 75 mg tablet,delayed release RxNorm: 190553 TAKE ONE TABLET BY MOUTH TWICE A DAY 01/26/2018 04/22/2018 Inactive hydrocodone 10 mg-acetaminophen 325 mg tablet RxNorm: 683536 1 Tablet(s) PO QID as needed tooth abscess pain or back pain 01/18/2018 02/15/2018 Inactive Claritin-D 24 Hour 10 mg-240 mg tablet,extended release RxNorm: 5818552 Tablet(s) TAKE ONE TABLET BY MOUTH DAILY 01/08/2018 04/07/2018 Inactive enalapril 5 mg-hydrochlorothiazide 12.5 mg tablet RxNorm: 472024 TAKE ONE TABLET BY MOUTH DAILY 12/29/2017 05/27/2018 Inactive hydrocodone 10 mg-acetaminophen 325 mg tablet RxNorm: 054252 1 Tablet(s) PO QID as needed tooth abscess pain or back pain 12/21/2017 01/17/2018 Inactive Cymbalta 60 mg capsule,delayed release RxNorm: 253434 TAKE ONE CAPSULE BY MOUTH DAILY 12/15/2017 02/11/2018 Inactive hydrocodone 10 mg-acetaminophen 325 mg tablet RxNorm: 604184 1 Tablet(s) PO QID as needed tooth abscess pain or back pain 11/22/2017 11/21/2017 Inactive hydrocodone 10 mg-acetaminophen 325 mg tablet RxNorm: 232663 1 Tablet(s) PO QID as needed tooth abscess pain or back pain 11/22/2017 12/20/2017 Inactive Movantik 25 mg tablet RxNorm: 0949607 1 Tablet(s) PO QAM 201712/07/2017 Inactive hydrocodone 10 mg-acetaminophen 325 mg tablet RxNorm: 833116 1 Tablet(s) PO QID as needed tooth abscess pain or back pain 10/20/2017 11/18/2017 Inactive Effexor 75 mg tablet RxNorm: 026072 TAKE ONE TABLET BY MOUTH DAILY 10/10/2017 03/08/2018 Inactive diclofenac sodium 75 mg tablet,delayed release RxNorm: 751029 TAKE ONE TABLET BY MOUTH TWICE A DAY 10/02/2017 01/25/2018 Inactive hydrocodone 10 mg-acetaminophen 325 mg tablet RxNorm: 342583 1 Tablet(s) PO QID as needed tooth abscess pain or back pain 09/27/2017 10/26/2017 Inactive simvastatin 40 mg tablet RxNorm: 204387 TAKE ONE TABLET BY MOUTH EVERY NIGHT AT BEDTIME 09/13/2017 02/09/2018 Inactive Cymbalta 60 mg capsule,delayed release RxNorm: 966296 TAKE ONE CAPSULE BY MOUTH DAILY 09/13/2017 12/11/2017 Inactive Claritin-D 24 Hour 10 mg-240 mg tablet,extended release RxNorm: 9742732 Tablet(s) TAKE ONE TABLET BY MOUTH DAILY 08/28/2017 11/25/2017 Inactive Claritin-D 24 Hour 10 mg-240 mg tablet,extended release RxNorm: 0774750 TAKE ONE TABLET BY MOUTH DAILY 08/28/20172017 Inactive hydrocodone 10 mg-acetaminophen 325 mg tablet RxNorm: 431828 1 Tablet(s) PO QID as needed tooth abscess pain or back pain 08/25/2017 09/23/2017 Inactive Valium 5 mg tablet RxNorm: 315727 Tablet(s) TAKE ONE TABLET BY MOUTH EVERY NIGHT AT BEDTIME 08/07/2017 11/02/2017 Inactive Metanx (algal oil) 3 mg-35 mg-2 mg-90.314 mg capsule RxNorm: TAKE ONE CAPSULE BY MOUTH TWO TIMES DAILY 08/02/20172017 Inactive hydrocodone 10 mg-acetaminophen 325 mg tablet RxNorm: 658761 1 Tablet(s) PO QID as needed tooth abscess pain or back pain 07/27/2017 08/24/2017 Inactive enalapril 5 mg-hydrochlorothiazide 12.5 mg tablet RxNorm: 776502 TAKE ONE TABLET BY MOUTH DAILY 07/03/2017 12/28/2017 Inactive hydrocodone 10 mg-acetaminophen 325 mg tablet RxNorm: 227218 1 Tablet(s) PO QID as needed tooth abscess pain or back pain 06/23/2017 07/22/2017 Inactive hydrocodone 10 mg-acetaminophen 325 mg tablet RxNorm: 481464 1 Tablet(s) PO QID as needed tooth abscess pain or back pain 05/31/2017 06/22/2017 Inactive diclofenac sodium 75 mg tablet,delayed release RxNorm: 888175 TAKE ONE TABLET BY MOUTH TWICE A DAY 05/29/2017 09/25/2017 Inactive Valium 5 mg tablet RxNorm: 043449 Tablet(s) TAKE ONE TABLET BY MOUTH EVERY NIGHT AT BEDTIME 05/16/2017 04/17/2018 Inactive Cymbalta 60 mg capsule,delayed release RxNorm: 400285 TAKE ONE CAPSULE BY MOUTH DAILY 05/15/2017 09/11/2017 Inactive hydrocodone 10 mg-acetaminophen 325 mg tablet RxNorm: 565691 1 Tablet(s) PO QID as needed tooth abscess pain or back pain 2017 05/30/2017 Inactive Claritin-D 24 Hour 10 mg-240 mg tablet,extended release RxNorm: 8247559 Tablet(s) TAKE ONE TABLET BY MOUTH DAILY 04/19/2017 07/17/2017 Inactive hydrocodone 5 mg-acetaminophen 325 mg tablet RxNorm: 615585 1-2 Tablet(s) PO Q6 as needed 04/18/2017 05/02/2017 Inactive Effexor 75 mg tablet RxNorm: 722017 TAKE ONE TABLET BY MOUTH DAILY 04/13/2017 10/09/2017 Inactive Keflex 500 mg capsule RxNorm: 909673 1 Capsule(s) PO TID 201603/26/2017 Inactive clindamycin 300 mg capsule RxNorm: 716422 1 Capsule(s) PO TID 03/20/2017 03/26/2017 Inactive ceftriaxone 500 mg solution for injection RxNorm: 0657280 1 Gram(s) Inj 03/16/2017 03/16/2017 Inactive clindamycin 300 mg capsule RxNorm: 133781 1 Capsule(s) PO TID 03/16/2017 03/19/2017 Inactive hydrocodone 5 mg-acetaminophen 325 mg tablet RxNorm: 317582 1-2 Tablet(s) PO Q6 as needed 03/16/2017 03/16/2017 Inactive Keflex 500 mg capsule RxNorm: 233211 1 Capsule(s) PO TID 201603/19/2017 Inactive hydrocodone 10 mg-acetaminophen 325 mg tablet RxNorm: 089862 1 Tablet(s) PO QID as needed tooth abscess pain or back pain 03/16/2017 04/14/2017 Inactive simvastatin 40 mg tablet RxNorm: 568367 TAKE ONE TABLET BY MOUTH EVERY NIGHT AT BEDTIME 03/13/2017 09/08/2017 Inactive clindamycin 300 mg capsule RxNorm: 168099 1 Capsule(s) PO TID 03/10/2017 03/15/2017 Inactive hydrocodone 5 mg-acetaminophen 325 mg tablet RxNorm: 490711 1-2 Tablet(s) PO Q6 as needed 03/03/2017 03/15/2017 Inactive hydrocodone 5 mg-acetaminophen 325 mg tablet RxNorm: 406214 1 to 2 Tablet(s) PO Q6 as needed 02/15/2017 02/25/2017 Inactive hydrocodone 5 mg-acetaminophen 325 mg tablet RxNorm: 314339 1 to 2 Tablet(s) PO Q6 as needed 02/02/2017 02/12/2017 Inactive enalapril 5 mg-hydrochlorothiazide 12.5 mg tablet RxNorm: 539368 TAKE ONE TABLET BY MOUTH DAILY 01/23/2017 06/21/2017 Inactive diclofenac sodium 75 mg tablet,delayed release RxNorm: 393106 TAKE ONE TABLET BY MOUTH TWICE A DAY 01/23/2017 05/22/2017 Inactive hydrocodone 5 mg-acetaminophen 325 mg tablet RxNorm: 615572 1 to 2 Tablet(s) PO Q6 as needed 01/12/2017 01/22/2017 Inactive hydrocodone 5 mg-acetaminophen 325 mg tablet RxNorm: 345681 1 to 2 Tablet(s) PO Q6 as needed 12/29/2016 01/08/2017 Inactive hydrocodone 5 mg-acetaminophen 325 mg tablet RxNorm: 485288 1 to 2 Tablet(s) PO Q6 as needed 12/16/2016 12/26/2016 Inactive Cymbalta 60 mg capsule,delayed release RxNorm: 768980 TAKE ONE CAPSULE BY MOUTH DAILY 12/14/2016 05/12/2017 Inactive hydrocodone 5 mg-acetaminophen 325 mg tablet RxNorm: 139437 1 to 2 Tablet(s) PO Q6 as needed 11/30/2016 12/10/2016 Inactive Voltaren 1 % topical gel RxNorm: 108780 2 Gram(s) TOP QID bilateral SI joints 11/16/2016 01/14/2017 Inactive diclofenac sodium 75 mg tablet,delayed release RxNorm: 316071 TAKE ONE TABLET BY MOUTH TWICE A DAY 10/31/2016 01/22/2017 Inactive hydrocodone 5 mg-acetaminophen 325 mg tablet RxNorm: 483097 1 to 2 Tablet(s) PO Q6 as needed 10/27/2016 11/06/2016 Inactive hydrocodone 5 mg-acetaminophen 325 mg tablet RxNorm: 618588 1 to 2 Tablet(s) PO Q6 as needed 10/05/2016 10/15/2016 Inactive Effexor 75 mg tablet RxNorm: 255565 TAKE ONE TABLET BY MOUTH DAILY 10/03/2016 03/31/2017 Inactive Claritin-D 24 Hour 10 mg-240 mg tablet,extended release RxNorm: 7234568 Tablet(s) TAKE ONE TABLET BY MOUTH DAILY 09/26/2016 12/24/2016 Inactive hydrocodone 5 mg-acetaminophen 325 mg tablet RxNorm: 196160 1 to 2 Tablet(s) PO Q6 as needed 09/09/2016 09/19/2016 Inactive hydrocodone 5 mg-acetaminophen 325 mg tablet RxNorm: 784202 1 to 2 Tablet(s) PO Q6 as needed 08/19/2016 08/29/2016 Inactive hydrocodone 5 mg-acetaminophen 325 mg tablet RxNorm: 130574 1 to 2 Tablet(s) PO Q6 as needed 08/01/2016 08/11/2016 Inactive enalapril 5 mg-hydrochlorothiazide 12.5 mg tablet RxNorm: 815797 Tablet(s) TAKE ONE TABLET BY MOUTH DAILY 07/18/201601/13 Inactive Movantik 25 mg tablet RxNorm: 8155382 1 Tablet(s) PO QAM 201611/07/2017 Inactive hydrocodone 5 mg-acetaminophen 325 mg tablet RxNorm: 996619 1 to 2 Tablet(s) PO Q6 as needed 07/15/2016 07/25/2016 Inactive diclofenac sodium 75 mg tablet,delayed release RxNorm: 267670 TAKE ONE TABLET BY MOUTH TWICE A DAY 06/27/2016 10/24/2016 Inactive hydrocodone 5 mg-acetaminophen 325 mg tablet RxNorm: 579756 1 to 2 Tablet(s) PO Q6 as needed 06/16/2016 06/26/2016 Inactive Claritin-D 24 Hour 10 mg-240 mg tablet,extended release RxNorm: 9196725 Tablet(s) TAKE ONE TABLET BY MOUTH DAILY 06/10/2016 08/08/2016 Inactive Metanx (algal oil) 3 mg-35 mg-2 mg-90.314 mg capsule RxNorm: Capsule(s) TAKE ONE CAPSULE BY MOUTH TWO TIMES DAILY 06/02/2016 05/27/2017 Inactive hydrocodone 5 mg-acetaminophen 325 mg tablet RxNorm: 341052 1 to 2 Tablet(s) PO Q6 as needed 05/27/2016 06/06/2016 Inactive Valium 5 mg tablet RxNorm: 471556 Tablet(s) TAKE ONE TABLET BY MOUTH EVERY NIGHT AT BEDTIME 05/16/2016 07/14/2016 Inactive Metanx (algal oil) 3 mg-35 mg-2 mg-90.314 mg capsule RxNorm: TAKE ONE CAPSULE BY MOUTH TWO TIMES DAILY 05/11/20162015 Inactive hydrocodone 5 mg-acetaminophen 325 mg tablet RxNorm: 356608 1 to 2 Tablet(s) PO Q6 as needed 04/25/2016 05/02/2016 Inactive [SAVINGS FOR NON-COVERED DRUGS -- BIN: 090676, PCN: ASPROD1, Group: XXXXX, ID# [id number], Questions: . THIS IS NOT INSURANCE.] hydrocodone 5 mg-acetaminophen 325 mg tablet RxNorm: 738311 1 to 2 Tablet(s) PO Q6 as needed 04/01/2016 04/08/2016 Inactive [SAVINGS FOR NON-COVERED DRUGS -- BIN: 591926, PCN: ASPROD1, Group: XXXXX, ID# [id number], Questions: . THIS IS NOT INSURANCE.] diclofenac sodium 75 mg tablet,delayed release RxNorm: 373519 TAKE ONE TABLET BY MOUTH TWICE A DAY 03/21/2016 06/18/2016 Inactive enalapril 5 mg-hydrochlorothiazide 12.5 mg tablet RxNorm: 743144 TAKE ONE TABLET BY MOUTH DAILY 03/21/2016 07/17/2016 Inactive Claritin-D 24 Hour 10 mg-240 mg tablet,extended release RxNorm: 4666640 Tablet(s) TAKE ONE TABLET BY MOUTH DAILY 03/11/2016 06/08/2016 Inactive hydrocodone 5 mg-acetaminophen 325 mg tablet RxNorm: 530937 1 to 2 Tablet(s) PO Q6 as needed 03/08/2016 03/15/2016 Inactive [SAVINGS FOR NON-COVERED DRUGS -- BIN: 664222, PCN: ASPROD1, Group: XXXXX, ID# [id number], Questions: . THIS IS NOT INSURANCE.] simvastatin 40 mg tablet RxNorm: 591506 1 Tablet(s) PO QHS 10/03/2016 Inactive Effexor 75 mg tablet RxNorm: 692879 Tablet(s) TAKE ONE TABLET BY MOUTH DAILY 03/08/2016 10/02/2016 Inactive simvastatin 40 mg tablet RxNorm: 097678 TAKE ONE TABLET BY MOUTH EVERY NIGHT AT BEDTIME 02/05/2016 05/04/2016 Inactive Request already responded to by other means (e.g. phone or fax) hydrocodone 5 mg-acetaminophen 325 mg tablet RxNorm: 345546 1 to 2 Tablet(s) PO Q6 as needed 02/02/2016 02/09/2016 Inactive [SAVINGS FOR NON-COVERED DRUGS -- BIN: 581094, PCN: ASPROD1, Group: XXXXX, ID# [id number], Questions: . THIS IS NOT INSURANCE.] simvastatin 40 mg tablet RxNorm: 614996 1 Tablet(s) PO QHS 03/07/2016 Inactive Cymbalta 60 mg capsule,delayed release RxNorm: 946980 TAKE ONE CAPSULE BY MOUTH DAILY 01/14/2016 06/11/2016 Inactive Request already responded to by other means ( e.g. phone or fax) Claritin-D 24 Hour 10 mg-240 mg tablet,extended release RxNorm: 6923069 Tablet(s) TAKE ONE TABLET BY MOUTH DAILY 01/14/2016 02/12/2016 Inactive hydrocodone 5 mg-acetaminophen 325 mg tablet RxNorm: 553302 1 to 2 Tablet(s) PO Q6 as needed 01/14/2016 01/21/2016 Inactive [SAVINGS FOR NON-COVERED DRUGS -- BIN: 562967, PCN: ASPROD1, Group: XXXXX, ID# [id number], Questions: . THIS IS NOT INSURANCE.] Claritin-D 24 Hour 10 mg-240 mg tablet,extended release RxNorm: 8042010 TAKE ONE TABLET BY MOUTH DAILY 01/14/20162015 Inactive Cymbalta 60 mg capsule,delayed release RxNorm: 482992 Capsule(s) TAKE ONE CAPSULE BY MOUTH DAILY 01/12/2016 01/13/2016 Inactive Claritin-D 24 Hour 10 mg-240 mg tablet,extended release RxNorm: 4966221 TAKE ONE TABLET BY MOUTH DAILY 01/11/20162015 Inactive Claritin-D 24 Hour 10 mg-240 mg tablet,extended release RxNorm: 7591630 TAKE ONE TABLET BY MOUTH DAILY 01/11/20162015 Inactive Claritin-D 24 Hour 10 mg-240 mg tablet,extended release RxNorm: 3542360 TAKE ONE TABLET BY MOUTH DAILY 01/07/20162015 Inactive Effexor 75 mg tablet RxNorm: 934055 TAKE ONE TABLET BY MOUTH DAILY 01/01/2016 02/29/2016 Inactive diclofenac sodium 75 mg tablet,delayed release RxNorm: 183338 TAKE ONE TABLET BY MOUTH TWICE A DAY 12/23/2015 03/20/2016 Inactive enalapril 5 mg-hydrochlorothiazide 12.5 mg tablet RxNorm: 984743 TAKE ONE TABLET BY MOUTH DAILY 12/23/2015 03/20/2016 Inactive hydrocodone 5 mg-acetaminophen 325 mg tablet RxNorm: 392576 1 to 2 Tablet(s) PO Q6 as needed 12/22/2015 12/29/2015 Inactive [SAVINGS FOR NON-COVERED DRUGS -- BIN: 358550, PCN: ASPROD1, Group: XXXXX, ID# [id number], Questions: . THIS IS NOT INSURANCE.] Valium 5 mg tablet RxNorm: 925083 Tablet(s) TAKE ONE TABLET BY MOUTH EVERY NIGHT AT BEDTIME 12/01/2015 04/17/2018 Inactive hydrocodone 5 mg-acetaminophen 325 mg tablet RxNorm: 310529 1 to 2 Tablet(s) PO Q6 as needed 11/30/2015 12/07/2015 Inactive [SAVINGS FOR NON-COVERED DRUGS -- BIN: 484477, PCN: ASPROD1, Group: XXXXX, ID# [id number], Questions: . THIS IS NOT INSURANCE.] hydrocodone 5 mg-acetaminophen 325 mg tablet RxNorm: 130197 1 to 2 Tablet(s) PO Q6 as needed 11/09/2015 11/16/2015 Inactive [SAVINGS FOR NON-COVERED DRUGS -- BIN: 919964, PCN: ASPROD1, Group: XXXXX, ID# [id number], Questions: . THIS IS NOT INSURANCE.] Claritin-D 24 Hour 10 mg-240 mg tablet,extended release RxNorm: 2118882 Tablet(s) TAKE ONE TABLET BY MOUTH DAILY 11/05/2015 11/04/2015 Inactive Claritin-D 24 Hour 10 mg-240 mg tablet,extended release RxNorm: 0530628 Tablet(s) TAKE ONE TABLET BY MOUTH DAILY 11/05/2015 01/06/2016 Inactive Claritin-D 24 Hour 10 mg-240 mg tablet,extended release RxNorm: 5412038 Tablet(s) TAKE ONE TABLET BY MOUTH DAILY 10/30/2015 03/10/2016 Inactive hydrocodone 5 mg-acetaminophen 325 mg tablet RxNorm: 801965 1 to 2 Tablet(s) PO Q6 as needed 10/09/2015 10/16/2015 Inactive [SAVINGS FOR NON-COVERED DRUGS -- BIN: 082941, PCN: ASPROD1, Group: XXXXX, ID# [id number], Questions: . THIS IS NOT INSURANCE.] Effexor 75 mg tablet RxNorm: 375430 TAKE ONE TABLET BY MOUTH DAILY 10/05/2015 12/31/2015 Inactive simvastatin 40 mg tablet RxNorm: 073387 1 Tablet(s) PO QHS 01/31/2016 Inactive hydrocodone 5 mg-acetaminophen 325 mg tablet RxNorm: 771830 1 to 2 Tablet(s) PO Q6 as needed 09/15/2015 09/22/2015 Inactive [SAVINGS FOR NON-COVERED DRUGS -- BIN: 604201, PCN: ASPROD1, Group: XXXXX, ID# [email or web address], Questions: . THIS IS NOT INSURANCE.] Valium 5 mg tablet RxNorm: 433794 Tablet(s) TAKE ONE TABLET BY MOUTH EVERY NIGHT AT BEDTIME 09/08/2015 04/17/2018 Inactive enalapril 5 mg-hydrochlorothiazide 12.5 mg tablet RxNorm: 501550 Tablet(s) TAKE ONE TABLET BY MOUTH DAILY 08/21/201512/17 Inactive diclofenac sodium 75 mg tablet,delayed release RxNorm: 837942 1 Tablet(s) PO BID 08/21/2015 12/18/2015 Inactive hydrocodone 5 mg-acetaminophen 325 mg tablet RxNorm: 663007 1 to 2 Tablet(s) PO Q6 as needed 08/13/2015 08/20/2015 Inactive [SAVINGS FOR NON-COVERED DRUGS -- BIN: 052793, PCN: ASPROD1, Group: XXXXX, ID# [id number], Questions: . THIS IS NOT INSURANCE.] clindamycin 300 mg capsule RxNorm: 262601 1 Capsule(s) PO TID 08/06/2015 08/10/2015 Inactive Claritin-D 24 Hour 10 mg-240 mg tablet,extended release RxNorm: 8978366 Tablet(s) TAKE ONE TABLET BY MOUTH DAILY 07/23/2015 10/20/2015 Inactive hydrocodone 5 mg-acetaminophen 325 mg tablet RxNorm: 096797 1 to 2 Tablet(s) PO Q6 as needed 07/23/2015 07/30/2015 Inactive [SAVINGS FOR NON-COVERED DRUGS -- BIN: 573154, PCN: ASPROD1, Group: XXXXX, ID# [id number], Questions: . THIS IS NOT INSURANCE.] Claritin-D 24 Hour 10 mg-240 mg tablet,extended release RxNorm: 7658380 TAKE ONE TABLET BY MOUTH DAILY 07/22/20152015 Inactive Valium 5 mg tablet RxNorm: 243325 Tablet(s) TAKE ONE TABLET BY MOUTH EVERY NIGHT AT BEDTIME 07/22/2015 04/17/2018 Inactive Claritin-D 24 Hour 10 mg-240 mg tablet,extended release RxNorm: 5718525 TAKE ONE TABLET BY MOUTH DAILY 07/20/20152015 Inactive Cymbalta 60 mg capsule,delayed release RxNorm: 666698 TAKE ONE CAPSULE BY MOUTH DAILY 07/20/2015 01/11/2016 Inactive cyclobenzaprine 10 mg tablet RxNorm: 367536 TAKE ONE TABLET BY MOUTH AT BEDTIME NEEDED 07/06/2015 08/04/2015 Inactive hydrocodone 5 mg-acetaminophen 325 mg tablet RxNorm: 962767 1 to 2 Tablet(s) PO Q6 as needed 06/23/2015 06/30/2015 Inactive [SAVINGS FOR NON-COVERED DRUGS -- BIN: 842997, PCN: ASPROD1, Group: XXXXX, ID# [id number], Questions: . THIS IS NOT INSURANCE.] Effexor 75 mg tablet RxNorm: 538767 1 Tablet(s) PO daily 201409/28/2015 Inactive hydrocodone 5 mg-acetaminophen 325 mg tablet RxNorm: 674962 1 to 2 Tablet(s) PO Q6 as needed 05/22/2015 05/29/2015 Inactive [SAVINGS FOR NON-COVERED DRUGS -- BIN: 770724, PCN: ASPROD1, Group: XXXXX, ID# [id number], Questions: . THIS IS NOT INSURANCE.] Valium 5 mg tablet RxNorm: 248255 Tablet(s) TAKE ONE TABLET BY MOUTH EVERY NIGHT AT BEDTIME 05/22/2015 04/17/2018 Inactive diclofenac sodium 75 mg tablet,delayed release RxNorm: 031037 1 Tablet(s) PO BID 05/04/2015 08/20/2015 Inactive Metanx (algal oil) 3 mg-35 mg-2 mg-90.314 mg capsule RxNorm: 1 Capsule(s) PO BID 05/04/2015 04/27/2016 Inactive enalapril 5 mg-hydrochlorothiazide 12.5 mg tablet RxNorm: 972999 TAKE ONE TABLET BY MOUTH DAILY 04/27/2015 08/20/2015 Inactive hydrocodone 5 mg-acetaminophen 325 mg tablet RxNorm: 450512 1 to 2 Tablet(s) PO Q6 as needed 04/27/2015 05/04/2015 Inactive [SAVINGS FOR NON-COVERED DRUGS -- BIN: 079184, PCN: ASPROD1, Group: XXXXX, ID# [id number], Questions: . THIS IS NOT INSURANCE.] hydrocodone 5 mg-acetaminophen 325 mg tablet RxNorm: 717600 1 to 2 Tablet(s) PO Q6 as needed 03/26/2015 04/02/2015 Inactive [SAVINGS FOR NON-COVERED DRUGS -- BIN: 929250, PCN: ASPROD1, Group: XXXXX, ID# [id number], Questions: . THIS IS NOT INSURANCE.] Claritin-D 24 Hour 10 mg-240 mg tablet,extended release RxNorm: 4389604 Tablet(s) TAKE ONE TABLET BY MOUTH DAILY 03/24/2015 07/19/2015 Inactive Valium 5 mg tablet RxNorm: 696351 TAKE ONE TABLET BY MOUTH EVERY NIGHT AT BEDTIME 03/05/2015 04/03/2015 Inactive Valium 5 mg tablet RxNorm: 716310 1 Tablet(s) PO daily as needed 03/05/2015 03/05/2015 Inactive [SAVINGS FOR NON-COVERED DRUGS -- BIN:110558, PCN: ASPROD1, Group : XXXXX, ID# [id number], Questions: . THIS IS NOT INSURANCE.] hydrocodone 5 mg-acetaminophen 325 mg tablet RxNorm: 537152 1 to 2 Tablet(s) PO Q6 as needed 02/18/2015 02/25/2015 Inactive [SAVINGS FOR NON-COVERED DRUGS -- BIN: 693466, PCN: ASPROD1, Group: XXXXX, ID# [id number], Questions: . THIS IS NOT INSURANCE.] enalapril 5 mg-hydrochlorothiazide 12.5 mg tablet RxNorm: 130119 1 Tablet(s) PO daily 01/30/2015 04/26/2015 Inactive hydrocodone 5 mg-acetaminophen 325 mg tablet RxNorm: 432542 1 to 2 Tablet(s) PO Q6 as needed 01/22/2015 01/29/2015 Inactive [SAVINGS FOR NON-COVERED DRUGS -- BIN: 862655, PCN: ASPROD1, Group: XXXXX, ID# [id number], Questions: . THIS IS NOT INSURANCE.] Claritin-D 24 Hour 10 mg-240 mg tablet,extended release RxNorm: 8402381 TAKE ONE TABLET BY MOUTH DAILY 01/15/20152014 Inactive Claritin-D 24 Hour 10 mg-240 mg tablet,extended release RxNorm: 9772372 Tablet(s) TAKE ONE TABLET BY MOUTH DAILY 01/15/2015 01/14/2015 Inactive cyclobenzaprine 10 mg tablet RxNorm: 484264 1 Tablet(s) PO QHS as needed 12/29/2014 01/27/2015 Inactive hydrocodone 5 mg-acetaminophen 325 mg tablet RxNorm: 345766 1 to 2 Tablet(s) PO Q6 as needed 12/23/2014 12/30/2014 Inactive [SAVINGS FOR NON-COVERED DRUGS -- BIN: 230310, PCN: ASPROD1, Group: XXXXX, ID# [id number], Questions: . THIS IS NOT INSURANCE.] Cymbalta 60 mg capsule,delayed release RxNorm: 921084 1 Capsule(s) PO daily 12/18/2014 07/15/2015 Inactive Claritin-D 24 Hour 10 mg-240 mg tablet,extended release RxNorm: 0399067 TAKE ONE TABLET BY MOUTH DAILY 12/15/20142014 Inactive Claritin-D 24 Hour 10 mg-240 mg tablet,extended release RxNorm: 7370560 TAKE ONE TABLET BY MOUTH DAILY 12/15/20142014 Inactive Claritin-D 24 Hour 10 mg-240 mg tablet,extended release RxNorm: 2675170 TAKE ONE TABLET BY MOUTH DAILY 12/15/20142014 Inactive Claritin-D 24 Hour 10 mg-240 mg tablet,extended release RxNorm: 5798198 1 Tablet(s ) PO daily 12/10/2014 12/14/2014 Inactive hydrocodone 5 mg-acetaminophen 325 mg tablet RxNorm: 235366 1 to 2 Tablet(s) PO Q6 as needed 12/08/2014 12/22/2014 Inactive [SAVINGS FOR NON-COVERED DRUGS -- BIN: 495129, PCN: ASPROD1, Group: XXXXX, ID# [id number], Questions: . THIS IS NOT INSURANCE.] hydrocodone 5 mg-acetaminophen 325 mg tablet RxNorm: 598695 1 to 2 Tablet(s) PO Q6 as needed 11/25/2014 12/07/2014 Inactive [SAVINGS FOR NON-COVERED DRUGS -- BIN: 776548, PCN: ASPROD1, Group: XXXXX, ID# [id number], Questions: . THIS IS NOT INSURANCE.] Claritin-D 24 Hour 10 mg-240 mg tablet,extended release RxNorm: 9237384 1 Tablet(s ) PO daily 11/07/2014 12/06/2014 Inactive Claritin-D 24 Hour 10 mg-240 mg tablet,extended release RxNorm: 9882406 1 Tablet(s ) PO daily 11/07/2014 11/06/2014 Inactive hydrocodone 5 mg-acetaminophen 325 mg tablet RxNorm: 935265 1 to 2 Tablet(s) PO Q6 as needed 11/03/2014 11/24/2014 Inactive [SAVINGS FOR NON-COVERED DRUGS -- BIN: 084897, PCN: ASPROD1, Group: XXXXX, ID# [id number], Questions: . THIS IS NOT INSURANCE.] Valium 5 mg tablet RxNorm: 930363 1 Tablet(s) PO daily as needed 10/23/2014 12/20/2014 Inactive [SAVINGS FOR NON-COVERED DRUGS -- BIN:019358, PCN: [id number], Group : XXXXX, ID# [id number], Questions: . THIS IS NOT INSURANCE.] Cialis 5 mg tablet RxNorm: 171005 1/2 Tablet(s) PO daily No Stop Date Active [SAVINGS FOR NON-COVERED DRUGS -- BIN:[id number], PCN: [id number], Group: XXXXX, ID# [id number], Questions: . THIS IS NOT INSURANCE.] aspirin 81 mg tablet RxNorm: 319236 1 Tablet(s) PO daily No Start Date Active Effexor 75 mg tablet RxNorm: 664265 1 Tablet(s) PO daily No Start Date 05/31/2015 Inactive Valium 5 mg tablet RxNorm: 419992 1 Tablet(s) PO daily as needed No Start Date 10/22/2014 Inactive simvastatin 40 mg tablet RxNorm: 033468 1 Tablet(s) PO QHS No Start Date 10/04/2015 Inactive enalapril 5 mg-hydrochlorothiazide 12.5 mg tablet RxNorm: 688806 oral No Start Date 01/29/2015 Inactive cyclobenzaprine 10 mg tablet RxNorm: 244094 1 Tablet(s) PO as needed No Start Date 12/28/2014 Inactive Cymbalta 60 mg capsule,delayed release RxNorm: 628033 1 Capsule(s) PO daily No Start Date 12/17/2014 Inactive hydrocodone 5 mg-acetaminophen 325 mg tablet RxNorm: 723495 1 to 2 Tablet(s) PO Q6 as needed No Start Date 11/02/2014 Inactive diclofenac sodium 75 mg tablet,delayed release RxNorm: 691028 1 Tablet(s) PO BID No Start Date 2015 Inactive Cialis 5 mg tablet RxNorm: 891007 1 Tablet(s) PO daily No Start Date 10/12/2014 Inactive Medication Administered Medication Codes Instructions Start Date Status ceftriaxone 500 mg solution for injection RxNorm: 4969192 1Gram 03/16/2017 No longer Active Immunizations No [...] Code Item Item Code Result Date %Hba1C Cxw297 % HbA1c 60269-3 6.0 % 05/28/2018 %Hba1C Vaf296 Gluc Ave 126 mg/dL 05/28/2018 Total Psa Ord10 PSA 1.13 ng/mL 05/28/2018 Lipid Ord30 CHOL 178 mg/dL 05/28/2018 Lipid Ord30 HDL 56.0 mg/dl 05/28/2018 Lipid Ord30 TRIG 194 mg/dL 05/28/2018 Lipid Ord30 LDL 83 mg/dL 05/28/2018 Lipid Ord30 C/HDL 3.2 Ratio 05/28/2018 Comp Metabolic Sun721 NA 140 mEq/L 05/28/2018 Comp Metabolic Qpr576 K 4.7 mEq/L 05/28/2018 Comp Metabolic Jak779 CL 101 mEq/L 05/28/2018 Comp Metabolic Jzc076 CO2 30.0 mEq/L 05/28/2018 Comp Metabolic Ssl064 ANION GAP 14 05/28/2018 Comp Metabolic Tfa529 GLUCOSE 103 mg/dL 05/28/2018 Comp Metabolic Sbg082 Creat 1.0 mg/dL 05/28/2018 Comp Metabolic Uji365 eGFR 83 ml/min/1.73m2 05/28/2018 Comp Metabolic Auj856 BUN 23 mg/dL 05/28/2018 Comp Metabolic Icy698 B/C Ratio 23.5 Ratio 05/28/2018 Comp Metabolic Ify237 CALCIUM 9.5 mg/dL 05/28/2018 Comp Metabolic Tno358 ALK PHOS 46 U/L 05/28/2018 Comp Metabolic Glv649 AST(SGOT) 24 U/L 05/28/2018 Comp Metabolic Lar185 ALT(SGPT) 51 U/L 05/28/2018 Comp Metabolic Zuw054 BILI T 0.7 mg/dL 05/28/2018 Comp Metabolic Fuz647 ALBUMIN 4.6 g/dL 05/28/2018 Comp Metabolic Ucb395 TPRO 6.7 g/dL 05/28/2018 Comp Metabolic Huq713 GLOB 2.2 g/dL 05/28/2018 Comp Metabolic Fjf424 A/G Ratio 2.1 Ratio 05/28/2018 Comp Metabolic Dfl952 Osmo 283 mOsmo 05/28/2018 Tsh Ord6 TSH [...] 30.7 pg 05/28/2018 Cbc With Differential Ord2 Bowie% 11.2 % 05/28/2018 Cbc With Differential Ord2 [...] 0.88 K/ul 05/28/2018 Cbc With Differential Ord2 Bowie ABS# 0.7 K/ul 05/28/2018 Cbc With Differential Ord2 Eos ABS# 0.2 K/ul 05/28/2018 Cbc With Differential Ord2 Baso ABS# 0.0 K/ul 05/28/2018 Hepatitis C Antibody With Reflex For Hcv Antibody Verificat 526986 HEPATITIS C ANTIBODY NEGATIVE 07/19/2016 Lipid Ord30 CHOL 180 mg/dL 07/18/2016 Lipid Ord30 HDL 56.0 mg/dl 07/18/2016 Lipid Ord30 TRIG 153 mg/dL 07/18/2016 Lipid Ord30 LDL 93 mg/dL 07/18/2016 Lipid Ord30 C/HDL 3.2 Ratio 07/18/2016 Comp Metabolic Ntb125 NA 136 mEq/L 07/18/2016 Comp Metabolic Psf511 K 4.3 mEq/L 07/18/2016 Comp Metabolic Ocg779 CL 100 mEq/L 07/18/2016 Comp Metabolic Pwf422 CO2 30.0 mEq/L 07/18/2016 Comp Metabolic Dvw408 ANION GAP 10 07/18/2016 Comp Metabolic Qzh619 GLUCOSE 104 mg/dL 07/18/2016 Comp Metabolic Gbl417 Creat 1.0 mg/dL 07/18/2016 Comp Metabolic Xjf328 eGFR 81 ml/min/1.73m2 07/18/2016 Comp Metabolic Vir599 BUN 21 mg/dL 07/18/2016 Comp Metabolic Loa509 B/C Ratio 20.8 Ratio 07/18/2016 Comp Metabolic Kgg859 CALCIUM 9.5 mg/dL 07/18/2016 Comp Metabolic Zyc561 ALK PHOS 45 U/L 07/18/2016 Comp Metabolic Urk391 AST(SGOT) 26 U/L 07/18/2016 Comp Metabolic Cha532 ALT(SGPT) 52 U/L 07/18/2016 Comp Metabolic Ljd330 BILI T 0.8 mg/dL 07/18/2016 Comp Metabolic Fmo683 ALBUMIN 4.7 g/dL 07/18/2016 Comp Metabolic Dqk520 TPRO 6.9 g/dL 07/18/2016 Comp Metabolic Uso363 GLOB 2.2 g/dL 07/18/2016 Comp Metabolic Gft839 A/G Ratio 2.2 Ratio 07/18/2016 Comp Metabolic Uga052 Osmo 275 mOsmo 07/18/2016 Cbc With Differential [...] 31.5 pg 07/18/2016 Cbc With Differential Ord2 Bowie% 11.2 % 07/18/2016 Cbc With Differential Ord2 [...] 0.69 K/ul 07/18/2016 Cbc With Differential Ord2 Bowie ABS# 0.5 K/ul 07/18/2016 Cbc With Differential Ord2 Eos ABS# 0.2 K/ul 07/18/2016 Cbc With Differential Ord2 Baso ABS# 0.0 K/ul 07/18/2016 Tsh Ord6 hTSH II 1.99 uIU/mL 07/18/2016 Total Psa Ord10 PSA 0.75 ng/mL 07/18/2016 %Hba1C Kca189 % HbA1c 11668-3 5.8 % 07/18/2016 %Hba1C Ebr845 Gluc Ave 120 mg/dL 07/18/2016 Review of [...] Code : 8480-6 BMI: 32.7 Code : 43580-7 Heart Rate 1 : 85 bpm Height: 5'10" SpO2: 99% Weight: 228 lbs 10/20/2017 Blood Pressure 1: 138/78 Code : 8480-6 BMI: 32.4 Code : 28964-0 Heart Rate 1 : 80 bpm Height: 5'10" SpO2: 98% Weight: 226 lbs 03/20/2017 Blood Pressure 1: 134/72 Code : 8480-6 Heart Rate 1: 87 bpm Height: 5'10" SpO2: 97% 03/16/2017 Blood Pressure 1: 150/84 Code : 8480-6 BMI: 32.4 Code : 75677-7 Heart Rate 1 : 98 bpm Height: 5'10" SpO2: 97% Weight: 226 lbs 03/10/2017 Blood Pressure 1: 140/72 Code : 8480-6 BMI: 32.4 Code : 20378-6 Heart Rate 1 : 81 bpm Height: 5'10" SpO2: 97% Weight: 226 lbs 11/16/2016 Blood Pressure 1: 142/80 Code : 8480-6 BMI: 32.1 Code : 37665-9 Heart Rate 1 : 95 bpm Height: 5'10" SpO2: 98% Weight: 224 lbs 07/15/2016 Blood Pressure 1: 130/78 Code : 8480-6 BMI: 32.0 Code : 54567-9 Heart Rate 1 : 85 bpm Height: 5'10" SpO2: 95% Weight: 223 lbs 03/08/2016 Blood Pressure 1: 138/84 Code : 8480-6 BMI: 31.6 Code : 92250-7 Heart Rate 1 : 86 bpm Height: 5'10" SpO2: 98% Weight: 220 lbs 11/26/2015 Blood Pressure 1: 132/82 Code : 8480-6 BMI: 31.6 Code : 93458-7 Height: 5'10 " Weight: 220 lbs 08/06/2015 Blood Pressure 1: 138/74 Code : 8480-6 BMI: 31.0 Code : 33982-0 Heart Rate 1 : 87 bpm Height: 5'10" SpO2: 95% Weight: 216 lbs 05/04/2015 Blood Pressure 1: 128/80 Code : 8480-6 BMI: 33.6 Code : 98943-4 Heart Rate 1 : 94 bpm Height: 5'10" SpO2: 97% Weight: 234 lbs 11/06/2014 Blood Pressure 1: 132/92 Code : 8480-6 BMI: 31.1 Code : 78651-9 Heart Rate 1 : 88 bpm Height: [...] Low back pain[ICD10: M54.5] Julianna Mcfarlane MD, [facility] CPT-4 : 26275 05/24/2018 05419 EST. PATIENT, LEVEL IV Diagnosis: Bilateral primary osteoarthritis of knee[ICD10: M17.0] Julianna Mcfarlane MD, [facility] CPT-4: 38322 10/20/2017 30082 EST. PATIENT, LEVEL IV Diagnosis: Periapical abscess without sinus[ICD10: K04.7] Diagnosis: Cellulitis and abscess of mouth[ICD10: K12.2] Julianna Mcfarlane MD, [facility] CPT-4: 66760 03/20/2017 ([id number]) 79180 EST. PATIENT, LEVEL III Diagnosis: Periapical abscess without sinus[ICD10: K04.7] Diagnosis: Cellulitis and abscess of mouth[ICD10: K12.2] Mayte Mcfarlane MD, [facility] CPT-4: 03731 03/16/2017 ([id number]) 70217 EST. PATIENT, LEVEL III Diagnosis: Periapical abscess without sinus[ICD10: K04.7] Niya Mcfarlane MD, [facility] CPT-4: 23573 03/10/2017 ([id number]) 30302 EST. PATIENT, LEVEL IV Diagnosis: Essential (primary) hypertension[ICD10: I10] Diagnosis: Low back pain[ICD10: M54.5] Mayte Mcfarlane MD, [facility] CPT- 4: 54065 11/16/2016 ([id number]) 86548 EST. PATIENT, LEVEL IV Diagnosis: Mixed hyperlipidemia[ICD10: E78.2] Diagnosis: Essential (primary) hypertension[ICD10: I10] Diagnosis: Impaired fasting glucose[ICD10: R73.01] Diagnosis: Encounter for screening for malignant neoplasm of prostate[ICD10: Z12.5] Diagnosis: Encounter for screening for other viral diseases[ICD10: Z11.59] Diagnosis: Drug induced constipation[ICD10: K59.03] Niya Mcfarlane MD, [facility] CPT-4: 47642 07/15/2016 ([id number]) 06169 EST. PATIENT, LEVEL III Diagnosis: Bilateral primary osteoarthritis of knee[ICD10: M17.0] Niya Mcfarlane MD, [facility] CPT-4: 71692 03/08/2016 ([id number]) 57202 EST. PATIENT, LEVEL III Diagnosis: Bilateral primary osteoarthritis of knee[ICD10: M17.0] Niya Mcfarlane MD, [facility] CPT-4: 87804 11/26/2015 28416 EST. PATIENT, LEVEL IV Diagnosis: Cervicalgia[ICD10: M54.2] Diagnosis: Other specified polyneuropathies[ICD10: G62.89] Diagnosis: Dental caries, unspecified[ICD10: K02.9] Diagnosis: Major depressive disorder, single episode, unspecified[ICD10: F32.9] Niya Mcfarlane MD, [facility] CPT-4: 58264 08/06/2015 ([id number]) 06640 EST. PATIENT, LEVEL IV Diagnosis: Mixed hyperlipidemia[ICD10: E78.2] Diagnosis: Idiopathic gout, unspecified ankle and foot[ICD10: M10.079] Diagnosis: Other specified polyneuropathies[ICD10: G62.89] Diagnosis: Morbid (severe) obesity due to excess calories[ICD10: E66.01] Mayte Mcfarlane MD, [facility] CPT-4: 70839 05/04/2015 ([id number]) OFFICE VISIT, NEW - LEVEL 4 Diagnosis: GOUT[ICD9: 274.9] Diagnosis: Sinusitis, acute[ICD9: 461.9] Diagnosis: HYPERLIPIDEMIA[ICD9: 272.4] [facility] CPT- 4: 53347 11/06/2014 Plan of Care Planned Activity Notes [...] over- medication. 05/24/2018 Appointment: Julianna Stanford WPtel: [phone] [facility] [place] (15 min) Moderate 05/24/2018 Patient Education: Patient Medication Summary Completed 05/24/2018 Patient Education: Back Pain Completed 05/24/2018 Appointment: Niya Bryant WPtel: [phone] [place] (15 min) Moderate 05/21/2018 Visit Plan: OA knees - pt has chronic pain - has been maintained on current medications, has not sought out other medications, only uses PRN pain medications as directed, and understands the consequences of over- medication. 10/20/2017 Appointment: Julianna Stanford WPtel: [facility] [place] [place] (30 min) Complex 10/20/2017 Patient Education: Patient Medication Summary Completed 10/20/2017 Appointment: Julianna Stanford WPtel: [facility]5 [facility] [place] (15 min) Moderate 10/19/2017 Visit Plan: Cellulitis/Abscess - continue with current treatment course - restart keflex as patient had improvement of symptoms on the rocephin. continue with clindamycin and increase probiotic to tid dosing. Keep follow up appointment with Dr. Hendrix on 03/28. Notify clinic with any changes or concerns, or with any questions. 03/20/2017 Appointment: Julianna Stanford WPtel: [phone] [facility] [place] (30 min) Complex 03/20/2017 Patient Education: Patient [...] dosing. 03/16/2017 Appointment: Mayte Mcfarlane WPtel: [phone] [facility] (15 min) Moderate 03/16/2017 Patient Education: Patient Medication Summary Completed 03/16/2017 Visit Plan: Abscessed tooth-discussed with Dr Mcfarlane- plan for IV abx x 3 days-will start with clindamycin and rocephin today and continue rocephin Monday and Monday-will increase dose of oral clindamycin - rx sent to patient's pharmacy and instructed on use. Patient verbalized understanding of plan. 03/10/2017 Appointment: Niya Bryant [facility]Ptel: [phone] [place] (15 min) Moderate 03/10/2017 Patient Education: Patient [...] they worsen. 11/16/2016 Appointment: [phone] ([facility] min) Moderate 11/16/2016 Patient Education: Patient [...] hgb a1c 07/15/2016 Appointment: Niya Bryant WPtel: [facility]5 [phone] (15 min) Moderate 07/15/2016 Patient Education: Patient Medication Summary Completed 07/15/2016 Patient Education: Obesity Completed 07/15/2016 Patient Education: Hypertension Completed 07/15/2016 Visit Plan: OA knees - pt has chronic pain - has been maintained on current medications, has not sought out other medications, only uses PRN pain medications as directed, and understands the consequences of over- medication. 03/08/2016 Appointment: Niya Bryant WPtel: [address] [place], [place] [phone] (30 min) Complex 03/08/2016 Patient Education: Patient [...] of plan. 11/26/2015 Appointment: Niya Bryant WPtel: [facility]5 [phone] (30 min) Complex 11/26/2015 Patient Education: Patient [...] to medications. 11/06/2014 Appointment: Mayte Mcfarlane WPtel: [facility] [place] New Patient 11/06/2014 Patient Education: [...]
--- OUTSIDE RECORDS SUMMARY | 2018-07-11 12:49 | XMS REPORT | CCD ---
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 Role Phone PP Unavailable CCM Unavailable Summary Purpose Interface Exchange Insurance Providers Payer name Policy type / Coverage type Covered green party ID Effective Begin Date Effective End Date Blue Cross Blue [facility] Blue Cross/Blue Shield [id number] Unknown Unknown Family history Father Diagnosis Age At Onset Cancer Unknown Stroke Unknown Heart Attack Unknown Hyperlipidemia Unknown Diabetes mellitus Type 2 Unknown Arthritis Unknown Heart disease Unknown Mother Diagnosis Age At Onset Arthritis Unknown Hypertension Unknown Breast cancer Unknown Sister Diagnosis Age At Onset Multiple sclerosis Unknown Social History Social History Element Codes Description Effective Dates Employment Unknown 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 05/04/2015 Marital status Unknown Danielle 11/06/[address]: 464746063 Has never smoked or chewed tobacco 11/06/2014 Alcohol history Unknown occasionally drinks alcohol 11/06/2014 Allergies, Adverse Reactions, Alerts Substance Reaction Codes Entered Date Inactivated Date Status * NO KNOWN FOOD ALLERGIES Unknown 11/06/2014 No Inactive Date Active amoxicillin RxNorm: 723 11/06/2014 No Inactive Date Active AUGMENTIN RxNorm: 881167 11/06/2014 No Inactive Date Active Past Medical [...] Start Date Stop Date Status Fill Instructions enalapril 5 mg-hydrochlorothiazide 12.5 mg tablet RxNorm: 238384 TAKE ONE TABLET BY MOUTH DAILY 05/28/2018 11/23/2018 Active hydrocodone 10 mg-acetaminophen 325 mg tablet RxNorm: 481512 1 Tablet(s) PO QID as needed tooth abscess pain or back pain 05/15/2018 06/13/2018 Active Cymbalta 60 mg capsule,delayed release RxNorm: 241164 TAKE ONE CAPSULE BY MOUTH DAILY 05/14/2018 08/11/2018 Active diclofenac sodium 75 mg tablet,delayed release RxNorm: 473181 TAKE ONE TABLET BY MOUTH TWICE A DAY 04/23/2018 09/19/2018 Active Valium 5 mg tablet RxNorm: 694232 Tablet(s) TAKE ONE TABLET BY MOUTH EVERY NIGHT AT BEDTIME 04/18/2018 05/17/2018 Inactive hydrocodone 10 mg-acetaminophen 325 mg tablet RxNorm: 565287 1 Tablet(s) PO QID as needed tooth abscess pain or back pain 04/16/2018 05/14/2018 Inactive hydrocodone 10 mg-acetaminophen 325 mg tablet RxNorm: 810204 1 Tablet(s) PO QID as needed tooth abscess pain or back pain 03/15/2018 04/13/2018 Inactive Effexor 75 mg tablet RxNorm: 262603 TAKE ONE TABLET BY MOUTH DAILY 03/14/2018 08/10/2018 Active hydrocodone 10 mg-acetaminophen 325 mg tablet RxNorm: 923515 1 Tablet(s) PO QID as needed tooth abscess pain or back pain 02/16/2018 03/14/2018 Inactive simvastatin 40 mg tablet RxNorm: 759781 TAKE ONE TABLET BY MOUTH EVERY NIGHT AT BEDTIME 02/12/2018 06/11/2018 Active Cymbalta 60 mg capsule,delayed release RxNorm: 826629 TAKE ONE CAPSULE BY MOUTH DAILY 02/12/2018 05/12/2018 Inactive diclofenac sodium 75 mg tablet,delayed release RxNorm: 910400 TAKE ONE TABLET BY MOUTH TWICE A DAY 01/26/2018 04/22/2018 Inactive hydrocodone 10 mg-acetaminophen 325 mg tablet RxNorm: 454557 1 Tablet(s) PO QID as needed tooth abscess pain or back pain 01/18/2018 02/15/2018 Inactive Claritin-D 24 Hour 10 mg-240 mg tablet,extended release RxNorm: 8694562 Tablet(s) TAKE ONE TABLET BY MOUTH DAILY 01/08/2018 04/07/2018 Inactive enalapril 5 mg-hydrochlorothiazide 12.5 mg tablet RxNorm: 642101 TAKE ONE TABLET BY MOUTH DAILY 12/29/2017 05/27/2018 Inactive hydrocodone 10 mg-acetaminophen 325 mg tablet RxNorm: 479102 1 Tablet(s) PO QID as needed tooth abscess pain or back pain 12/21/2017 01/17/2018 Inactive Cymbalta 60 mg capsule,delayed release RxNorm: 031337 TAKE ONE CAPSULE BY MOUTH DAILY 12/15/2017 02/11/2018 Inactive hydrocodone 10 mg-acetaminophen 325 mg tablet RxNorm: 700845 1 Tablet(s) PO QID as needed tooth abscess pain or back pain 11/22/2017 11/21/2017 Inactive hydrocodone 10 mg-acetaminophen 325 mg tablet RxNorm: 065070 1 Tablet(s) PO QID as needed tooth abscess pain or back pain 11/22/2017 12/20/2017 Inactive Movantik 25 mg tablet RxNorm: 6798682 1 Tablet(s) PO QAM 201712/07/2017 Inactive hydrocodone 10 mg-acetaminophen 325 mg tablet RxNorm: 530655 1 Tablet(s) PO QID as needed tooth abscess pain or back pain 10/20/2017 11/18/2017 Inactive Effexor 75 mg tablet RxNorm: 315566 TAKE ONE TABLET BY MOUTH DAILY 10/10/2017 03/08/2018 Inactive diclofenac sodium 75 mg tablet,delayed release RxNorm: 781266 TAKE ONE TABLET BY MOUTH TWICE A DAY 10/02/2017 01/25/2018 Inactive hydrocodone 10 mg-acetaminophen 325 mg tablet RxNorm: 900521 1 Tablet(s) PO QID as needed tooth abscess pain or back pain 09/27/2017 10/26/2017 Inactive simvastatin 40 mg tablet RxNorm: 041886 TAKE ONE TABLET BY MOUTH EVERY NIGHT AT BEDTIME 09/13/2017 02/09/2018 Inactive Cymbalta 60 mg capsule,delayed release RxNorm: 281626 TAKE ONE CAPSULE BY MOUTH DAILY 09/13/2017 12/11/2017 Inactive Claritin-D 24 Hour 10 mg-240 mg tablet,extended release RxNorm: 1010465 Tablet(s) TAKE ONE TABLET BY MOUTH DAILY 08/28/2017 11/25/2017 Inactive Claritin-D 24 Hour 10 mg-240 mg tablet,extended release RxNorm: 0424594 TAKE ONE TABLET BY MOUTH DAILY 08/28/20172017 Inactive hydrocodone 10 mg-acetaminophen 325 mg tablet RxNorm: 652218 1 Tablet(s) PO QID as needed tooth abscess pain or back pain 08/25/2017 09/23/2017 Inactive Valium 5 mg tablet RxNorm: 086693 Tablet(s) TAKE ONE TABLET BY MOUTH EVERY NIGHT AT BEDTIME 08/07/2017 11/02/2017 Inactive Metanx (algal oil) 3 mg-35 mg-2 mg-90.314 mg capsule RxNorm: TAKE ONE CAPSULE BY MOUTH TWO TIMES DAILY 08/02/20172017 Inactive hydrocodone 10 mg-acetaminophen 325 mg tablet RxNorm: 627483 1 Tablet(s) PO QID as needed tooth abscess pain or back pain 07/27/2017 08/24/2017 Inactive enalapril 5 mg-hydrochlorothiazide 12.5 mg tablet RxNorm: 934660 TAKE ONE TABLET BY MOUTH DAILY 07/03/2017 12/28/2017 Inactive hydrocodone 10 mg-acetaminophen 325 mg tablet RxNorm: 763005 1 Tablet(s) PO QID as needed tooth abscess pain or back pain 06/23/2017 07/22/2017 Inactive hydrocodone 10 mg-acetaminophen 325 mg tablet RxNorm: 900798 1 Tablet(s) PO QID as needed tooth abscess pain or back pain 05/31/2017 06/22/2017 Inactive diclofenac sodium 75 mg tablet,delayed release RxNorm: 081527 TAKE ONE TABLET BY MOUTH TWICE A DAY 05/29/2017 09/25/2017 Inactive Valium 5 mg tablet RxNorm: 588812 Tablet(s) TAKE ONE TABLET BY MOUTH EVERY NIGHT AT BEDTIME 05/16/2017 04/17/2018 Inactive Cymbalta 60 mg capsule,delayed release RxNorm: 584373 TAKE ONE CAPSULE BY MOUTH DAILY 05/15/2017 09/11/2017 Inactive hydrocodone 10 mg-acetaminophen 325 mg tablet RxNorm: 706607 1 Tablet(s) PO QID as needed tooth abscess pain or back pain 2017 05/30/2017 Inactive Claritin-D 24 Hour 10 mg-240 mg tablet,extended release RxNorm: 0682208 Tablet(s) TAKE ONE TABLET BY MOUTH DAILY 04/19/2017 07/17/2017 Inactive hydrocodone 5 mg-acetaminophen 325 mg tablet RxNorm: 093479 1-2 Tablet(s) PO Q6 as needed 04/18/2017 05/02/2017 Inactive Effexor 75 mg tablet RxNorm: 377992 TAKE ONE TABLET BY MOUTH DAILY 04/13/2017 10/09/2017 Inactive Keflex 500 mg capsule RxNorm: 822533 1 Capsule(s) PO TID 201603/26/2017 Inactive clindamycin 300 mg capsule RxNorm: 753044 1 Capsule(s) PO TID 03/20/2017 03/26/2017 Inactive ceftriaxone 500 mg solution for injection RxNorm: 5741052 1 Gram(s) Inj 03/16/2017 03/16/2017 Inactive clindamycin 300 mg capsule RxNorm: 810177 1 Capsule(s) PO TID 03/16/2017 03/19/2017 Inactive hydrocodone 5 mg-acetaminophen 325 mg tablet RxNorm: 325388 1-2 Tablet(s) PO Q6 as needed 03/16/2017 03/16/2017 Inactive Keflex 500 mg capsule RxNorm: 150716 1 Capsule(s) PO TID 201603/19/2017 Inactive hydrocodone 10 mg-acetaminophen 325 mg tablet RxNorm: 322280 1 Tablet(s) PO QID as needed tooth abscess pain or back pain 03/16/2017 04/14/2017 Inactive simvastatin 40 mg tablet RxNorm: 376965 TAKE ONE TABLET BY MOUTH EVERY NIGHT AT BEDTIME 03/13/2017 09/08/2017 Inactive clindamycin 300 mg capsule RxNorm: 161070 1 Capsule(s) PO TID 03/10/2017 03/15/2017 Inactive hydrocodone 5 mg-acetaminophen 325 mg tablet RxNorm: 620047 1-2 Tablet(s) PO Q6 as needed 03/03/2017 03/15/2017 Inactive hydrocodone 5 mg-acetaminophen 325 mg tablet RxNorm: 027115 1 to 2 Tablet(s) PO Q6 as needed 02/15/2017 02/25/2017 Inactive hydrocodone 5 mg-acetaminophen 325 mg tablet RxNorm: 945929 1 to 2 Tablet(s) PO Q6 as needed 02/02/2017 02/12/2017 Inactive enalapril 5 mg-hydrochlorothiazide 12.5 mg tablet RxNorm: 391433 TAKE ONE TABLET BY MOUTH DAILY 01/23/2017 06/21/2017 Inactive diclofenac sodium 75 mg tablet,delayed release RxNorm: 930232 TAKE ONE TABLET BY MOUTH TWICE A DAY 01/23/2017 05/22/2017 Inactive hydrocodone 5 mg-acetaminophen 325 mg tablet RxNorm: 220035 1 to 2 Tablet(s) PO Q6 as needed 01/12/2017 01/22/2017 Inactive hydrocodone 5 mg-acetaminophen 325 mg tablet RxNorm: 369278 1 to 2 Tablet(s) PO Q6 as needed 12/29/2016 01/08/2017 Inactive hydrocodone 5 mg-acetaminophen 325 mg tablet RxNorm: 825421 1 to 2 Tablet(s) PO Q6 as needed 12/16/2016 12/26/2016 Inactive Cymbalta 60 mg capsule,delayed release RxNorm: 951348 TAKE ONE CAPSULE BY MOUTH DAILY 12/14/2016 05/12/2017 Inactive hydrocodone 5 mg-acetaminophen 325 mg tablet RxNorm: 406407 1 to 2 Tablet(s) PO Q6 as needed 11/30/2016 12/10/2016 Inactive Voltaren 1 % topical gel RxNorm: 538331 2 Gram(s) TOP QID bilateral SI joints 11/16/2016 01/14/2017 Inactive diclofenac sodium 75 mg tablet,delayed release RxNorm: 119694 TAKE ONE TABLET BY MOUTH TWICE A DAY 10/31/2016 01/22/2017 Inactive hydrocodone 5 mg-acetaminophen 325 mg tablet RxNorm: 273310 1 to 2 Tablet(s) PO Q6 as needed 10/27/2016 11/06/2016 Inactive hydrocodone 5 mg-acetaminophen 325 mg tablet RxNorm: 507618 1 to 2 Tablet(s) PO Q6 as needed 10/05/2016 10/15/2016 Inactive Effexor 75 mg tablet RxNorm: 364412 TAKE ONE TABLET BY MOUTH DAILY 10/03/2016 03/31/2017 Inactive Claritin-D 24 Hour 10 mg-240 mg tablet,extended release RxNorm: 4947866 Tablet(s) TAKE ONE TABLET BY MOUTH DAILY 09/26/2016 12/24/2016 Inactive hydrocodone 5 mg-acetaminophen 325 mg tablet RxNorm: 515691 1 to 2 Tablet(s) PO Q6 as needed 09/09/2016 09/19/2016 Inactive hydrocodone 5 mg-acetaminophen 325 mg tablet RxNorm: 161968 1 to 2 Tablet(s) PO Q6 as needed 08/19/2016 08/29/2016 Inactive hydrocodone 5 mg-acetaminophen 325 mg tablet RxNorm: 019746 1 to 2 Tablet(s) PO Q6 as needed 08/01/2016 08/11/2016 Inactive enalapril 5 mg-hydrochlorothiazide 12.5 mg tablet RxNorm: 891473 Tablet(s) TAKE ONE TABLET BY MOUTH DAILY 07/18/201601/13 Inactive Movantik 25 mg tablet RxNorm: 0989406 1 Tablet(s) PO QAM 201611/07/2017 Inactive hydrocodone 5 mg-acetaminophen 325 mg tablet RxNorm: 467521 1 to 2 Tablet(s) PO Q6 as needed 07/15/2016 07/25/2016 Inactive diclofenac sodium 75 mg tablet,delayed release RxNorm: 458350 TAKE ONE TABLET BY MOUTH TWICE A DAY 06/27/2016 10/24/2016 Inactive hydrocodone 5 mg-acetaminophen 325 mg tablet RxNorm: 554205 1 to 2 Tablet(s) PO Q6 as needed 06/16/2016 06/26/2016 Inactive Claritin-D 24 Hour 10 mg-240 mg tablet,extended release RxNorm: 4505725 Tablet(s) TAKE ONE TABLET BY MOUTH DAILY 06/10/2016 08/08/2016 Inactive Metanx (algal oil) 3 mg-35 mg-2 mg-90.314 mg capsule RxNorm: Capsule(s) TAKE ONE CAPSULE BY MOUTH TWO TIMES DAILY 06/02/2016 05/27/2017 Inactive hydrocodone 5 mg-acetaminophen 325 mg tablet RxNorm: 637367 1 to 2 Tablet(s) PO Q6 as needed 05/27/2016 06/06/2016 Inactive Valium 5 mg tablet RxNorm: 250197 Tablet(s) TAKE ONE TABLET BY MOUTH EVERY NIGHT AT BEDTIME 05/16/2016 07/14/2016 Inactive Metanx (algal oil) 3 mg-35 mg-2 mg-90.314 mg capsule RxNorm: TAKE ONE CAPSULE BY MOUTH TWO TIMES DAILY 05/11/20162015 Inactive hydrocodone 5 mg-acetaminophen 325 mg tablet RxNorm: 886871 1 to 2 Tablet(s) PO Q6 as needed 04/25/2016 05/02/2016 Inactive [SAVINGS FOR NON-COVERED DRUGS -- BIN: 885164, PCN: ASPROD1, Group: XXXXX, ID# [id number], Questions: . THIS IS NOT INSURANCE.] hydrocodone 5 mg-acetaminophen 325 mg tablet RxNorm: 531146 1 to 2 Tablet(s) PO Q6 as needed 04/01/2016 04/08/2016 Inactive [SAVINGS FOR NON-COVERED DRUGS -- BIN: 550714, PCN: ASPROD1, Group: XXXXX, ID# [id number], Questions: . THIS IS NOT INSURANCE.] diclofenac sodium 75 mg tablet,delayed release RxNorm: 925389 TAKE ONE TABLET BY MOUTH TWICE A DAY 03/21/2016 06/18/2016 Inactive enalapril 5 mg-hydrochlorothiazide 12.5 mg tablet RxNorm: 635833 TAKE ONE TABLET BY MOUTH DAILY 03/21/2016 07/17/2016 Inactive Claritin-D 24 Hour 10 mg-240 mg tablet,extended release RxNorm: 5507167 Tablet(s) TAKE ONE TABLET BY MOUTH DAILY 03/11/2016 06/08/2016 Inactive hydrocodone 5 mg-acetaminophen 325 mg tablet RxNorm: 144405 1 to 2 Tablet(s) PO Q6 as needed 03/08/2016 03/15/2016 Inactive [SAVINGS FOR NON-COVERED DRUGS -- BIN: 383393, PCN: ASPROD1, Group: XXXXX, ID# [id number], Questions: . THIS IS NOT INSURANCE.] simvastatin 40 mg tablet RxNorm: 303125 1 Tablet(s) PO QHS 10/03/2016 Inactive Effexor 75 mg tablet RxNorm: 426989 Tablet(s) TAKE ONE TABLET BY MOUTH DAILY 03/08/2016 10/02/2016 Inactive simvastatin 40 mg tablet RxNorm: 290348 TAKE ONE TABLET BY MOUTH EVERY NIGHT AT BEDTIME 02/05/2016 05/04/2016 Inactive Request already responded to by other means (e.g. phone or fax) hydrocodone 5 mg-acetaminophen 325 mg tablet RxNorm: 500518 1 to 2 Tablet(s) PO Q6 as needed 02/02/2016 02/09/2016 Inactive [SAVINGS FOR NON-COVERED DRUGS -- BIN: 500837, PCN: ASPROD1, Group: XXXXX, ID# [id number], Questions: . THIS IS NOT INSURANCE.] simvastatin 40 mg tablet RxNorm: 811238 1 Tablet(s) PO QHS 03/07/2016 Inactive Cymbalta 60 mg capsule,delayed release RxNorm: 085261 TAKE ONE CAPSULE BY MOUTH DAILY 01/14/2016 06/11/2016 Inactive Request already responded to by other means ( e.g. phone or fax) Claritin-D 24 Hour 10 mg-240 mg tablet,extended release RxNorm: 6582795 Tablet(s) TAKE ONE TABLET BY MOUTH DAILY 01/14/2016 02/12/2016 Inactive hydrocodone 5 mg-acetaminophen 325 mg tablet RxNorm: 283722 1 to 2 Tablet(s) PO Q6 as needed 01/14/2016 01/21/2016 Inactive [SAVINGS FOR NON-COVERED DRUGS -- BIN: 787821, PCN: ASPROD1, Group: XXXXX, ID# [id number], Questions: . THIS IS NOT INSURANCE.] Claritin-D 24 Hour 10 mg-240 mg tablet,extended release RxNorm: 6015670 TAKE ONE TABLET BY MOUTH DAILY 01/14/20162015 Inactive Cymbalta 60 mg capsule,delayed release RxNorm: 924351 Capsule(s) TAKE ONE CAPSULE BY MOUTH DAILY 01/12/2016 01/13/2016 Inactive Claritin-D 24 Hour 10 mg-240 mg tablet,extended release RxNorm: 1861328 TAKE ONE TABLET BY MOUTH DAILY 01/11/20162015 Inactive Claritin-D 24 Hour 10 mg-240 mg tablet,extended release RxNorm: 6893595 TAKE ONE TABLET BY MOUTH DAILY 01/11/20162015 Inactive Claritin-D 24 Hour 10 mg-240 mg tablet,extended release RxNorm: 2919189 TAKE ONE TABLET BY MOUTH DAILY 01/07/20162015 Inactive Effexor 75 mg tablet RxNorm: 391577 TAKE ONE TABLET BY MOUTH DAILY 01/01/2016 02/29/2016 Inactive diclofenac sodium 75 mg tablet,delayed release RxNorm: 994547 TAKE ONE TABLET BY MOUTH TWICE A DAY 12/23/2015 03/20/2016 Inactive enalapril 5 mg-hydrochlorothiazide 12.5 mg tablet RxNorm: 797869 TAKE ONE TABLET BY MOUTH DAILY 12/23/2015 03/20/2016 Inactive hydrocodone 5 mg-acetaminophen 325 mg tablet RxNorm: 174168 1 to 2 Tablet(s) PO Q6 as needed 12/22/2015 12/29/2015 Inactive [SAVINGS FOR NON-COVERED DRUGS -- BIN: 841221, PCN: ASPROD1, Group: XXXXX, ID# [id number], Questions: . THIS IS NOT INSURANCE.] Valium 5 mg tablet RxNorm: 268787 Tablet(s) TAKE ONE TABLET BY MOUTH EVERY NIGHT AT BEDTIME 12/01/2015 04/17/2018 Inactive hydrocodone 5 mg-acetaminophen 325 mg tablet RxNorm: 884222 1 to 2 Tablet(s) PO Q6 as needed 11/30/2015 12/07/2015 Inactive [SAVINGS FOR NON-COVERED DRUGS -- BIN: 091673, PCN: ASPROD1, Group: XXXXX, ID# [id number], Questions: . THIS IS NOT INSURANCE.] hydrocodone 5 mg-acetaminophen 325 mg tablet RxNorm: 267287 1 to 2 Tablet(s) PO Q6 as needed 11/09/2015 11/16/2015 Inactive [SAVINGS FOR NON-COVERED DRUGS -- BIN: 665392, PCN: ASPROD1, Group: XXXXX, ID# [id number], Questions: . THIS IS NOT INSURANCE.] Claritin-D 24 Hour 10 mg-240 mg tablet,extended release RxNorm: 6738387 Tablet(s) TAKE ONE TABLET BY MOUTH DAILY 11/05/2015 11/04/2015 Inactive Claritin-D 24 Hour 10 mg-240 mg tablet,extended release RxNorm: 0666866 Tablet(s) TAKE ONE TABLET BY MOUTH DAILY 11/05/2015 01/06/2016 Inactive Claritin-D 24 Hour 10 mg-240 mg tablet,extended release RxNorm: 1461155 Tablet(s) TAKE ONE TABLET BY MOUTH DAILY 10/30/2015 03/10/2016 Inactive hydrocodone 5 mg-acetaminophen 325 mg tablet RxNorm: 416911 1 to 2 Tablet(s) PO Q6 as needed 10/09/2015 10/16/2015 Inactive [SAVINGS FOR NON-COVERED DRUGS -- BIN: 703139, PCN: ASPROD1, Group: XXXXX, ID# [id number], Questions: . THIS IS NOT INSURANCE.] Effexor 75 mg tablet RxNorm: 469055 TAKE ONE TABLET BY MOUTH DAILY 10/05/2015 12/31/2015 Inactive simvastatin 40 mg tablet RxNorm: 131799 1 Tablet(s) PO QHS 01/31/2016 Inactive hydrocodone 5 mg-acetaminophen 325 mg tablet RxNorm: 194102 1 to 2 Tablet(s) PO Q6 as needed 09/15/2015 09/22/2015 Inactive [SAVINGS FOR NON-COVERED DRUGS -- BIN: 167867, PCN: ASPROD1, Group: XXXXX, ID# [id number], Questions: . THIS IS NOT INSURANCE.] Valium 5 mg tablet RxNorm: 148378 Tablet(s) TAKE ONE TABLET BY MOUTH EVERY NIGHT AT BEDTIME 09/08/2015 04/17/2018 Inactive enalapril 5 mg-hydrochlorothiazide 12.5 mg tablet RxNorm: 730530 Tablet(s) TAKE ONE TABLET BY MOUTH DAILY 08/21/201512/17 Inactive diclofenac sodium 75 mg tablet,delayed release RxNorm: 821591 1 Tablet(s) PO BID 08/21/2015 12/18/2015 Inactive hydrocodone 5 mg-acetaminophen 325 mg tablet RxNorm: 990244 1 to 2 Tablet(s) PO Q6 as needed 08/13/2015 08/20/2015 Inactive [SAVINGS FOR NON-COVERED DRUGS -- BIN: 954419, PCN: ASPROD1, Group: XXXXX, ID# [id number], Questions: . THIS IS NOT INSURANCE.] clindamycin 300 mg capsule RxNorm: 388793 1 Capsule(s) PO TID 08/06/2015 08/10/2015 Inactive Claritin-D 24 Hour 10 mg-240 mg tablet,extended release RxNorm: 1119086 Tablet(s) TAKE ONE TABLET BY MOUTH DAILY 07/23/2015 10/20/2015 Inactive hydrocodone 5 mg-acetaminophen 325 mg tablet RxNorm: 244468 1 to 2 Tablet(s) PO Q6 as needed 07/23/2015 07/30/2015 Inactive [SAVINGS FOR NON-COVERED DRUGS -- BIN: 064347, PCN: ASPROD1, Group: XXXXX, ID# [id number], Questions: . THIS IS NOT INSURANCE.] Claritin-D 24 Hour 10 mg-240 mg tablet,extended release RxNorm: 2449887 TAKE ONE TABLET BY MOUTH DAILY 07/22/20152015 Inactive Valium 5 mg tablet RxNorm: 433822 Tablet(s) TAKE ONE TABLET BY MOUTH EVERY NIGHT AT BEDTIME 07/22/2015 04/17/2018 Inactive Claritin-D 24 Hour 10 mg-240 mg tablet,extended release RxNorm: 1458714 TAKE ONE TABLET BY MOUTH DAILY 07/20/20152015 Inactive Cymbalta 60 mg capsule,delayed release RxNorm: 373486 TAKE ONE CAPSULE BY MOUTH DAILY 07/20/2015 01/11/2016 Inactive cyclobenzaprine 10 mg tablet RxNorm: 649885 TAKE ONE TABLET BY MOUTH AT BEDTIME NEEDED 07/06/2015 08/04/2015 Inactive hydrocodone 5 mg-acetaminophen 325 mg tablet RxNorm: 060829 1 to 2 Tablet(s) PO Q6 as needed 06/23/2015 06/30/2015 Inactive [SAVINGS FOR NON-COVERED DRUGS -- BIN: 372218, PCN: ASPROD1, Group: XXXXX, ID# [id number], Questions: . THIS IS NOT INSURANCE.] Effexor 75 mg tablet RxNorm: 643347 1 Tablet(s) PO daily 201409/28/2015 Inactive hydrocodone 5 mg-acetaminophen 325 mg tablet RxNorm: 992900 1 to 2 Tablet(s) PO Q6 as needed 05/22/2015 05/29/2015 Inactive [SAVINGS FOR NON-COVERED DRUGS -- BIN: 270288, PCN: ASPROD1, Group: XXXXX, ID# [id number], Questions: . THIS IS NOT INSURANCE.] Valium 5 mg tablet RxNorm: 615401 Tablet(s) TAKE ONE TABLET BY MOUTH EVERY NIGHT AT BEDTIME 05/22/2015 04/17/2018 Inactive diclofenac sodium 75 mg tablet,delayed release RxNorm: 002247 1 Tablet(s) PO BID 05/04/2015 08/20/2015 Inactive Metanx (algal oil) 3 mg-35 mg-2 mg-90.314 mg capsule RxNorm: 1 Capsule(s) PO BID 05/04/2015 04/27/2016 Inactive enalapril 5 mg-hydrochlorothiazide 12.5 mg tablet RxNorm: 929435 TAKE ONE TABLET BY MOUTH DAILY 04/27/2015 08/20/2015 Inactive hydrocodone 5 mg-acetaminophen 325 mg tablet RxNorm: 699611 1 to 2 Tablet(s) PO Q6 as needed 04/27/2015 05/04/2015 Inactive [SAVINGS FOR NON-COVERED DRUGS -- BIN: 011094, PCN: ASPROD1, Group: XXXXX, ID# [id number], Questions: . THIS IS NOT INSURANCE.] hydrocodone 5 mg-acetaminophen 325 mg tablet RxNorm: 741660 1 to 2 Tablet(s) PO Q6 as needed 03/26/2015 04/02/2015 Inactive [SAVINGS FOR NON-COVERED DRUGS -- BIN: 213218, PCN: ASPROD1, Group: XXXXX, ID# [id number], Questions: . THIS IS NOT INSURANCE.] Claritin-D 24 Hour 10 mg-240 mg tablet,extended release RxNorm: 2902021 Tablet(s) TAKE ONE TABLET BY MOUTH DAILY 03/24/2015 07/19/2015 Inactive Valium 5 mg tablet RxNorm: 629705 TAKE ONE TABLET BY MOUTH EVERY NIGHT AT BEDTIME 03/05/2015 04/03/2015 Inactive Valium 5 mg tablet RxNorm: 641888 1 Tablet(s) PO daily as needed 03/05/2015 03/05/2015 Inactive [SAVINGS FOR NON-COVERED DRUGS -- BIN:783341, PCN: ASPROD1, Group : XXXXX, ID# [id number], Questions: . THIS IS NOT INSURANCE.] hydrocodone 5 mg-acetaminophen 325 mg tablet RxNorm: 089215 1 to 2 Tablet(s) PO Q6 as needed 02/18/2015 02/25/2015 Inactive [SAVINGS FOR NON-COVERED DRUGS -- BIN: 755929, PCN: ASPROD1, Group: XXXXX, ID# [id number], Questions: . THIS IS NOT INSURANCE.] enalapril 5 mg-hydrochlorothiazide 12.5 mg tablet RxNorm: 853144 1 Tablet(s) PO daily 01/30/2015 04/26/2015 Inactive hydrocodone 5 mg-acetaminophen 325 mg tablet RxNorm: 496439 1 to 2 Tablet(s) PO Q6 as needed 01/22/2015 01/29/2015 Inactive [SAVINGS FOR NON-COVERED DRUGS -- BIN: 882136, PCN: ASPROD1, Group: XXXXX, ID# [id number], Questions: . THIS IS NOT INSURANCE.] Claritin-D 24 Hour 10 mg-240 mg tablet,extended release RxNorm: 0260058 TAKE ONE TABLET BY MOUTH DAILY 01/15/20152014 Inactive Claritin-D 24 Hour 10 mg-240 mg tablet,extended release RxNorm: 6265278 Tablet(s) TAKE ONE TABLET BY MOUTH DAILY 01/15/2015 01/14/2015 Inactive cyclobenzaprine 10 mg tablet RxNorm: 152828 1 Tablet(s) PO QHS as needed 12/29/2014 01/27/2015 Inactive hydrocodone 5 mg-acetaminophen 325 mg tablet RxNorm: 005131 1 to 2 Tablet(s) PO Q6 as needed 12/23/2014 12/30/2014 Inactive [SAVINGS FOR NON-COVERED DRUGS -- BIN: 370578, PCN: ASPROD1, Group: XXXXX, ID# [id number], Questions: . THIS IS NOT INSURANCE.] Cymbalta 60 mg capsule,delayed release RxNorm: 958976 1 Capsule(s) PO daily 12/18/2014 07/15/2015 Inactive Claritin-D 24 Hour 10 mg-240 mg tablet,extended release RxNorm: 3880704 TAKE ONE TABLET BY MOUTH DAILY 12/15/20142014 Inactive Claritin-D 24 Hour 10 mg-240 mg tablet,extended release RxNorm: 4334318 TAKE ONE TABLET BY MOUTH DAILY 12/15/20142014 Inactive Claritin-D 24 Hour 10 mg-240 mg tablet,extended release RxNorm: 8595280 TAKE ONE TABLET BY MOUTH DAILY 12/15/20142014 Inactive Claritin-D 24 Hour 10 mg-240 mg tablet,extended release RxNorm: 6669044 1 Tablet(s ) PO daily 12/10/2014 12/14/2014 Inactive hydrocodone 5 mg-acetaminophen 325 mg tablet RxNorm: 387310 1 to 2 Tablet(s) PO Q6 as needed 12/08/2014 12/22/2014 Inactive [SAVINGS FOR NON-COVERED DRUGS -- BIN: 643374, PCN: ASPROD1, Group: XXXXX, ID# [id number], Questions: . THIS IS NOT INSURANCE.] hydrocodone 5 mg-acetaminophen 325 mg tablet RxNorm: 119123 1 to 2 Tablet(s) PO Q6 as needed 11/25/2014 12/07/2014 Inactive [SAVINGS FOR NON-COVERED DRUGS -- BIN: 584796, PCN: ASPROD1, Group: XXXXX, ID# [id number], Questions: . THIS IS NOT INSURANCE.] Claritin-D 24 Hour 10 mg-240 mg tablet,extended release RxNorm: 0597823 1 Tablet(s ) PO daily 11/07/2014 12/06/2014 Inactive Claritin-D 24 Hour 10 mg-240 mg tablet,extended release RxNorm: 2445480 1 Tablet(s ) PO daily 11/07/2014 11/06/2014 Inactive hydrocodone 5 mg-acetaminophen 325 mg tablet RxNorm: 818283 1 to 2 Tablet(s) PO Q6 as needed 11/03/2014 11/24/2014 Inactive [SAVINGS FOR NON-COVERED DRUGS -- BIN: 741439, PCN: ASPROD1, Group: XXXXX, ID# [id number], Questions: . THIS IS NOT INSURANCE.] Valium 5 mg tablet RxNorm: 225229 1 Tablet(s) PO daily as needed 10/23/2014 12/20/2014 Inactive [SAVINGS FOR NON-COVERED DRUGS -- BIN:874243, PCN: ASPROD1, Group : XXXXX, ID# [id number], Questions: . THIS IS NOT INSURANCE.] Cialis 5 mg tablet RxNorm: 517491 1/2 Tablet(s) PO daily No Stop Date Active [SAVINGS FOR NON-COVERED DRUGS -- BIN:[id number], PCN: [id number], Group: [id number], ID# [id number], Questions: . THIS IS NOT INSURANCE.] aspirin 81 mg tablet RxNorm: 121062 1 Tablet(s) PO daily No Start Date Active Effexor 75 mg tablet RxNorm: 184521 1 Tablet(s) PO daily No Start Date 05/31/2015 Inactive Valium 5 mg tablet RxNorm: 932406 1 Tablet(s) PO daily as needed No Start Date 10/22/2014 Inactive simvastatin 40 mg tablet RxNorm: 959975 1 Tablet(s) PO QHS No Start Date 10/04/2015 Inactive enalapril 5 mg-hydrochlorothiazide 12.5 mg tablet RxNorm: 423187 oral No Start Date 01/29/2015 Inactive cyclobenzaprine 10 mg tablet RxNorm: 830689 1 Tablet(s) PO as needed No Start Date 12/28/2014 Inactive Cymbalta 60 mg capsule,delayed release RxNorm: 132325 1 Capsule(s) PO daily No Start Date 12/17/2014 Inactive hydrocodone 5 mg-acetaminophen 325 mg tablet RxNorm: 458712 1 to 2 Tablet(s) PO Q6 as needed No Start Date 11/02/2014 Inactive diclofenac sodium 75 mg tablet,delayed release RxNorm: 022652 1 Tablet(s) PO BID No Start Date 2015 Inactive Cialis 5 mg tablet RxNorm: 500146 1 Tablet(s) PO daily No Start Date 10/12/2014 Inactive Medication Administered Medication Codes Instructions Start Date Status ceftriaxone 500 mg solution for injection RxNorm: 8864250 1Gram 03/16/2017 No longer Active Immunizations No [...] Code Item Item Code Result Date %Hba1C Feb355 % HbA1c 67775-7 6.0 % 05/28/2018 %Hba1C Izw030 Gluc Ave 126 mg/dL 05/28/2018 Total Psa Ord10 PSA 1.13 ng/mL 05/28/2018 Lipid Ord30 CHOL 178 mg/dL 05/28/2018 Lipid Ord30 HDL 56.0 mg/dl 05/28/2018 Lipid Ord30 TRIG 194 mg/dL 05/28/2018 Lipid Ord30 LDL 83 mg/dL 05/28/2018 Lipid Ord30 C/HDL 3.2 Ratio 05/28/2018 Comp Metabolic Kgk911 NA 140 mEq/L 05/28/2018 Comp Metabolic Emq405 K 4.7 mEq/L 05/28/2018 Comp Metabolic Erv667 CL 101 mEq/L 05/28/2018 Comp Metabolic Jtj458 CO2 30.0 mEq/L 05/28/2018 Comp Metabolic Fat724 ANION GAP 14 05/28/2018 Comp Metabolic Wht455 GLUCOSE 103 mg/dL 05/28/2018 Comp Metabolic Zkt553 Creat 1.0 mg/dL 05/28/2018 Comp Metabolic Jev815 eGFR 83 ml/min/1.73m2 05/28/2018 Comp Metabolic Ttk583 BUN 23 mg/dL 05/28/2018 Comp Metabolic Ykz146 B/C Ratio 23.5 Ratio 05/28/2018 Comp Metabolic Vho328 CALCIUM 9.5 mg/dL 05/28/2018 Comp Metabolic Tjj863 ALK PHOS 46 U/L 05/28/2018 Comp Metabolic Eba047 AST(SGOT) 24 U/L 05/28/2018 Comp Metabolic Fml270 ALT(SGPT) 51 U/L 05/28/2018 Comp Metabolic Djz040 BILI T 0.7 mg/dL 05/28/2018 Comp Metabolic Xrk549 ALBUMIN 4.6 g/dL 05/28/2018 Comp Metabolic Lan786 TPRO 6.7 g/dL 05/28/2018 Comp Metabolic Gia583 GLOB 2.2 g/dL 05/28/2018 Comp Metabolic Erx910 A/G Ratio 2.1 Ratio 05/28/2018 Comp Metabolic Qkp881 Osmo 283 mOsmo 05/28/2018 Tsh Ord6 TSH [...] 30.7 pg 05/28/2018 Cbc With Differential Ord2 [place]% 11.2 % 05/28/2018 Cbc With Differential Ord2 [...] 0.88 K/ul 05/28/2018 Cbc With Differential Ord2 [place] ABS# 0.7 K/ul 05/28/2018 Cbc With Differential Ord2 Eos ABS# 0.2 K/ul 05/28/2018 Cbc With Differential Ord2 Baso ABS# 0.0 K/ul 05/28/2018 Hepatitis C Antibody With Reflex For Hcv Antibody Verificat 971055 HEPATITIS C ANTIBODY NEGATIVE 07/19/2016 Lipid Ord30 CHOL 180 mg/dL 07/18/2016 Lipid Ord30 HDL 56.0 mg/dl 07/18/2016 Lipid Ord30 TRIG 153 mg/dL 07/18/2016 Lipid Ord30 LDL 93 mg/dL 07/18/2016 Lipid Ord30 C/HDL 3.2 Ratio 07/18/2016 Comp Metabolic Nwp636 NA 136 mEq/L 07/18/2016 Comp Metabolic Oiz540 K 4.3 mEq/L 07/18/2016 Comp Metabolic Boy600 CL 100 mEq/L 07/18/2016 Comp Metabolic Jbq190 CO2 30.0 mEq/L 07/18/2016 Comp Metabolic Loz759 ANION GAP 10 07/18/2016 Comp Metabolic Pka304 GLUCOSE 104 mg/dL 07/18/2016 Comp Metabolic Jqu514 Creat 1.0 mg/dL 07/18/2016 Comp Metabolic Hfs973 eGFR 81 ml/min/1.73m2 07/18/2016 Comp Metabolic Lfz172 BUN 21 mg/dL 07/18/2016 Comp Metabolic Qer759 B/C Ratio 20.8 Ratio 07/18/2016 Comp Metabolic Buu223 CALCIUM 9.5 mg/dL 07/18/2016 Comp Metabolic Jam051 ALK PHOS 45 U/L 07/18/2016 Comp Metabolic Kem937 AST(SGOT) 26 U/L 07/18/2016 Comp Metabolic Qel299 ALT(SGPT) 52 U/L 07/18/2016 Comp Metabolic Pin293 BILI T 0.8 mg/dL 07/18/2016 Comp Metabolic Fgo106 ALBUMIN 4.7 g/dL 07/18/2016 Comp Metabolic Isz611 TPRO 6.9 g/dL 07/18/2016 Comp Metabolic Nue466 GLOB 2.2 g/dL 07/18/2016 Comp Metabolic Xcm718 A/G Ratio 2.2 Ratio 07/18/2016 Comp Metabolic Jmd799 Osmo 275 mOsmo 07/18/2016 Cbc With Differential [...] 31.5 pg 07/18/2016 Cbc With Differential Ord2 [place]% 11.2 % 07/18/2016 Cbc With Differential Ord2 [...] 0.69 K/ul 07/18/2016 Cbc With Differential Ord2 [place] ABS# 0.5 K/ul 07/18/2016 Cbc With Differential Ord2 Eos ABS# 0.2 K/ul 07/18/2016 Cbc With Differential Ord2 Baso ABS# 0.0 K/ul 07/18/2016 Tsh Ord6 hTSH II 1.99 uIU/mL 07/18/2016 Total Psa Ord10 PSA 0.75 ng/mL 07/18/2016 %Hba1C Lwu059 % HbA1c 22334-2 5.8 % 07/18/2016 %Hba1C Dhg242 Gluc Ave 120 mg/dL 07/18/2016 Review of [...] of consciousness 08/06/2015 Constitutional No recent illness 11/16/ 2015 Constitutional No chills 05/04/2015 Constitutional No diaphoresis [...] crepitus 11/06/2014 None Procedures Procedure Codes Date ROCEPFANTA, PER 250 MG CPT-4: J0696 03/16/2017 Vital Signs Date Vital 05/24/2018 Blood Pressure 1: 146/74 Code : 8480-6 BMI: 32.7 Code : 43966-0 Heart Rate 1 : 85 bpm Height: 5'10" SpO2: 99% Weight: 228 lbs 10/20/2017 Blood Pressure 1: 138/78 Code : 8480-6 BMI: 32.4 Code : 92352-8 Heart Rate 1 : 80 bpm Height: 5'10" SpO2: 98% Weight: 226 lbs 03/20/2017 Blood Pressure 1: 134/72 Code : 8480-6 Heart Rate 1: 87 bpm Height: 5'10" SpO2: 97% 03/16/2017 Blood Pressure 1: 150/84 Code : 8480-6 BMI: 32.4 Code : 26727-1 Heart Rate 1 : 98 bpm Height: 5'10" SpO2: 97% Weight: 226 lbs 03/10/2017 Blood Pressure 1: 140/72 Code : 8480-6 BMI: 32.4 Code : 23211-4 Heart Rate 1 : 81 bpm Height: 5'10" SpO2: 97% Weight: 226 lbs 11/16/2016 Blood Pressure 1: 142/80 Code : 8480-6 BMI: 32.1 Code : 31717-9 Heart Rate 1 : 95 bpm Height: 5'10" SpO2: 98% Weight: 224 lbs 07/15/2016 Blood Pressure 1: 130/78 Code : 8480-6 BMI: 32.0 Code : 58522-1 Heart Rate 1 : 85 bpm Height: 5'10" SpO2: 95% Weight: 223 lbs 03/08/2016 Blood Pressure 1: 138/84 Code : 8480-6 BMI: 31.6 Code : 21757-8 Heart Rate 1 : 86 bpm Height: 5'10" SpO2: 98% Weight: 220 lbs 11/26/2015 Blood Pressure 1: 132/82 Code : 8480-6 BMI: 31.6 Code : 42245-6 Height: 5'10 " Weight: 220 lbs 08/06/2015 Blood Pressure 1: 138/74 Code : 8480-6 BMI: 31.0 Code : 23124-6 Heart Rate 1 : 87 bpm Height: 5'10" SpO2: 95% Weight: 216 lbs 05/04/2015 Blood Pressure 1: 128/80 Code : 8480-6 BMI: 33.6 Code : 37401-8 Heart Rate 1 : 94 bpm Height: 5'10" SpO2: 97% Weight: 234 lbs 11/06/2014 Blood Pressure 1: 132/92 Code : 8480-6 BMI: 31.1 Code : 60034-7 Heart Rate 1 : 88 bpm Height: [...] data Encounters Encounter Performer Location Codes Date [id number] EST. PATIENT, LEVEL III Diagnosis: Bilateral primary osteoarthritis of knee[ICD10: M17.0] Diagnosis: Low back pain[ICD10: M54.5] Julianna Mcfarlane MD, [facility] CPT-4 : 36339 05/24/2018 [id number] EST. PATIENT, LEVEL IV Diagnosis: Bilateral primary osteoarthritis of knee[ICD10: M17.0] Julianna Mcfarlane MD, [facility] CPT-4: 69147 10/20/2017 [id number] EST. PATIENT, LEVEL IV Diagnosis: Periapical abscess without sinus[ICD10: K04.7] Diagnosis: Cellulitis and abscess of mouth[ICD10: K12.2] Julianna Mcfarlane MD, [facility] CPT-4: 48931 03/20/2017 ([id number]) 02991 EST. PATIENT, LEVEL III Diagnosis: Periapical abscess without sinus[ICD10: K04.7] Diagnosis: Cellulitis and abscess of mouth[ICD10: K12.2] Mayte Mcfarlane MD, [facility] CPT-4: 01303 03/16/2017 ([id number]) 26576 EST. PATIENT, LEVEL III Diagnosis: Periapical abscess without sinus[ICD10: K04.7] Niya Mcfarlane MD, [facility] CPT-4: 39617 03/10/2017 ([id number]) 12109 EST. PATIENT, LEVEL IV Diagnosis: Essential (primary) hypertension[ICD10: I10] Diagnosis: Low back pain[ICD10: M54.5] Mayte Mcfarlane MD, [facility] CPT- 4: 76284 11/16/2016 ([id number]) 73764 EST. PATIENT, LEVEL IV Diagnosis: Mixed hyperlipidemia[ICD10: E78.2] Diagnosis: Essential (primary) hypertension[ICD10: I10] Diagnosis: Impaired fasting glucose[ICD10: R73.01] Diagnosis: Encounter for screening for malignant neoplasm of prostate[ICD10: Z12.5] Diagnosis: Encounter for screening for other viral diseases[ICD10: Z11.59] Diagnosis: Drug induced constipation[ICD10: K59.03] Niya Mcfarlane MD, [facility] CPT-4: 27877 07/15/2016 ([id number]) 52090 EST. PATIENT, LEVEL III Diagnosis: Bilateral primary osteoarthritis of knee[ICD10: M17.0] Niya Mcfarlane MD, [facility] CPT-4: 37050 03/08/2016 ([id number]) 64897 EST. PATIENT, LEVEL III Diagnosis: Bilateral primary osteoarthritis of knee[ICD10: M17.0] Niya Mcfarlane MD, [facility] CPT-4: 89805 11/26/2015 02083 EST. PATIENT, LEVEL IV Diagnosis: Cervicalgia[ICD10: M54.2] Diagnosis: Other specified polyneuropathies[ICD10: G62.89] Diagnosis: Dental caries, unspecified[ICD10: K02.9] Diagnosis: Major depressive disorder, single episode, unspecified[ICD10: F32.9] [facility] CPT-4: 03057 08/06/2015 ([id number]) 78670 EST. PATIENT, LEVEL IV Diagnosis: Mixed hyperlipidemia[ICD10: E78.2] Diagnosis: Idiopathic gout, unspecified ankle and foot[ICD10: M10.079] Diagnosis: Other specified polyneuropathies[ICD10: G62.89] Diagnosis: Morbid (severe) obesity due to excess calories[ICD10: E66.01] [facility] CPT-4: 28276 05/04/2015 ([id number]) OFFICE VISIT, NEW - LEVEL 4 Diagnosis: GOUT[ICD9: 274.9] Diagnosis: Sinusitis, acute[ICD9: 461.9] Diagnosis: HYPERLIPIDEMIA[ICD9: 272.4] [facility] CPT- 4: 88909 11/06/2014 Plan of Care Planned Activity Notes [...] over- medication. 05/24/2018 Appointment: Julianna Stanford WPtel: [facility] [place] (15 min) Moderate 05/24/2018 Patient Education: Patient Medication Summary Completed 05/24/2018 Patient Education: Back Pain Completed 05/24/2018 Appointment: Niya Bryant WPtel: [phone] [place] (15 min) Moderate 05/21/2018 Visit Plan: OA knees - pt has chronic pain - has been maintained on current medications, has not sought out other medications, only uses PRN pain medications as directed, and understands the consequences of over- medication. 10/20/2017 Appointment: Julianna Stanford WPtel: [facility] [place] (30 min) Complex 10/20/2017 Patient Education: Patient Medication Summary Completed 10/20/2017 Appointment: Julianna Stanford WPtel: [facility] [place] (15 min) Moderate 10/19/2017 Visit Plan: Cellulitis/Abscess - continue with current treatment course - restart keflex as patient had improvement of symptoms on the rocephin. continue with clindamycin and increase probiotic to tid dosing. Keep follow up appointment with Dr. Hendrix on 03/28. Notify clinic with any changes or concerns, or with any questions. 03/20/2017 Appointment: Julianna Stanford WPtel: [phone] [place] (30 min) Complex 03/20/2017 Patient [...] dosing. 03/16/2017 Appointment: Mayte Mcfarlane WPtel: [phone] [phone] (15 min) Moderate 03/16/2017 Patient Education: Patient Medication Summary Completed 03/16/2017 Visit Plan: Abscessed tooth-discussed with Dr Mcfarlane- plan for IV abx x 3 days-will start with clindamycin and rocephin today and continue rocephin Monday and Monday-will increase dose of oral clindamycin - rx sent to patient's pharmacy and instructed on use. Patient verbalized understanding of plan. 03/10/2017 Appointment: Niya Bryant WPtel: [phone] [phone] [place] (15 min) Moderate 03/10/2017 Patient Education: [...] they worsen. 11/16/2016 Appointment: Mayte Mcfarlane WPtel: [phone] [phone] (15 min) Moderate 11/16/2016 Patient Education: Patient [...] hgb a1c 07/15/2016 Appointment: Niya Bryant WPtel: [phone] (15 min) Moderate 07/15/2016 Patient Education: Patient Medication Summary Completed 07/15/2016 Patient Education: Obesity Completed 07/15/2016 Patient Education: Hypertension Completed 07/15/2016 Visit Plan: OA knees - pt has chronic pain - has been maintained on current medications, has not sought out other medications, only uses PRN pain medications as directed, and understands the consequences of over- medication. 03/08/2016 Appointment: Niya Bryant WPtel: [address] [place], [place] [phone] (30 min) Complex 03/08/2016 Patient Education: Patient [...] of plan. 11/26/2015 Appointment: Niya Bryant WPtel: [phone] (30 min) Complex 11/26/2015 Patient Education: [...] medications. 11/06/2014 Appointment: [phone] [place] ([place] New Patient 11/06/2014 Patient Education: [...]
--- OUTSIDE RECORDS SUMMARY | 2018-07-11 12:52 | XMS REPORT | CCD ---
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 [employer] Name Role Phone PP Unavailable CCM Unavailable Summary Purpose Interface Exchange Insurance Providers Payer name Policy type / Coverage type Covered libertarian ID Effective Begin Date Effective End Date Blue Cross Blue [facility] Blue Cross/Blue Shield [id number] Unknown Unknown Family history Father Diagnosis Age At Onset Cancer Unknown Stroke Unknown Heart Attack Unknown Hyperlipidemia Unknown Diabetes mellitus Type 2 Unknown Arthritis Unknown Heart disease Unknown Mother Diagnosis Age At Onset Arthritis Unknown Hypertension Unknown Breast cancer Unknown Sister Diagnosis Age At Onset Multiple sclerosis Unknown Social History Social History Element Codes Description Effective Dates Employment Unknown 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 Number of children Unknown 3 one daughter lives locally, other children live in [facility] 05/04/2015 Marital status Unknown Danielle 11/06/[address]: 459428188 Has never smoked or chewed tobacco 11/06/2014 Alcohol history Unknown occasionally drinks alcohol 11/06/2014 Allergies, Adverse Reactions, Alerts Substance Reaction Codes Entered Date Inactivated Date Status * NO KNOWN FOOD ALLERGIES Unknown 11/06/2014 No Inactive Date Active amoxicillin RxNorm: 723 11/06/2014 No Inactive Date Active AUGMENTIN RxNorm: 073071 11/06/2014 No Inactive Date Active Past Medical [...] enalapril 5 mg-hydrochlorothiazide 12.5 mg tablet RxNorm: 941596 TAKE ONE TABLET BY MOUTH DAILY 05/28/2018 11/23/2018 Active hydrocodone 10 mg-acetaminophen 325 mg tablet RxNorm: 220385 1 Tablet(s) PO QID as needed tooth abscess pain or back pain 05/15/2018 06/13/2018 Active Cymbalta 60 mg capsule,delayed release RxNorm: 163693 TAKE ONE CAPSULE BY MOUTH DAILY 05/14/2018 08/11/2018 Active diclofenac sodium 75 mg tablet,delayed release RxNorm: 538743 TAKE ONE TABLET BY MOUTH TWICE A DAY 04/23/2018 09/19/2018 Active Valium 5 mg tablet RxNorm: 016202 Tablet(s) TAKE ONE TABLET BY MOUTH EVERY NIGHT AT BEDTIME 04/18/2018 05/17/2018 Inactive hydrocodone 10 mg-acetaminophen 325 mg tablet RxNorm: 801565 1 Tablet(s) PO QID as needed tooth abscess pain or back pain 04/16/2018 05/14/2018 Inactive hydrocodone 10 mg-acetaminophen 325 mg tablet RxNorm: 488475 1 Tablet(s) PO QID as needed tooth abscess pain or back pain 03/15/2018 04/13/2018 Inactive Effexor 75 mg tablet RxNorm: 225980 TAKE ONE TABLET BY MOUTH DAILY 03/14/2018 08/10/2018 Active hydrocodone 10 mg-acetaminophen 325 mg tablet RxNorm: 737062 1 Tablet(s) PO QID as needed tooth abscess pain or back pain 02/16/2018 03/14/2018 Inactive simvastatin 40 mg tablet RxNorm: 129243 TAKE ONE TABLET BY MOUTH EVERY NIGHT AT BEDTIME 02/12/2018 06/11/2018 Active Cymbalta 60 mg capsule,delayed release RxNorm: 623768 TAKE ONE CAPSULE BY MOUTH DAILY 02/12/2018 05/12/2018 Inactive diclofenac sodium 75 mg tablet,delayed release RxNorm: 217539 TAKE ONE TABLET BY MOUTH TWICE A DAY 01/26/2018 04/22/2018 Inactive hydrocodone 10 mg-acetaminophen 325 mg tablet RxNorm: 638068 1 Tablet(s) PO QID as needed tooth abscess pain or back pain 01/18/2018 02/15/2018 Inactive Claritin-D 24 Hour 10 mg-240 mg tablet,extended release RxNorm: 8184503 Tablet(s) TAKE ONE TABLET BY MOUTH DAILY 01/08/2018 04/07/2018 Inactive enalapril 5 mg-hydrochlorothiazide 12.5 mg tablet RxNorm: 758056 TAKE ONE TABLET BY MOUTH DAILY 12/29/2017 05/27/2018 Inactive hydrocodone 10 mg-acetaminophen 325 mg tablet RxNorm: 729346 1 Tablet(s) PO QID as needed tooth abscess pain or back pain 12/21/2017 01/17/2018 Inactive Cymbalta 60 mg capsule,delayed release RxNorm: 413662 TAKE ONE CAPSULE BY MOUTH DAILY 12/15/2017 02/11/2018 Inactive hydrocodone 10 mg-acetaminophen 325 mg tablet RxNorm: 590921 1 Tablet(s) PO QID as needed tooth abscess pain or back pain 11/22/2017 11/21/2017 Inactive hydrocodone 10 mg-acetaminophen 325 mg tablet RxNorm: 765128 1 Tablet(s) PO QID as needed tooth abscess pain or back pain 11/22/2017 12/20/2017 Inactive Movantik 25 mg tablet RxNorm: 1590038 1 Tablet(s) PO QAM 201712/07/2017 Inactive hydrocodone 10 mg-acetaminophen 325 mg tablet RxNorm: 610069 1 Tablet(s) PO QID as needed tooth abscess pain or back pain 10/20/2017 11/18/2017 Inactive Effexor 75 mg tablet RxNorm: 357658 TAKE ONE TABLET BY MOUTH DAILY 10/10/2017 03/08/2018 Inactive diclofenac sodium 75 mg tablet,delayed release RxNorm: 890799 TAKE ONE TABLET BY MOUTH TWICE A DAY 10/02/2017 01/25/2018 Inactive hydrocodone 10 mg-acetaminophen 325 mg tablet RxNorm: 841440 1 Tablet(s) PO QID as needed tooth abscess pain or back pain 09/27/2017 10/26/2017 Inactive simvastatin 40 mg tablet RxNorm: 190328 TAKE ONE TABLET BY MOUTH EVERY NIGHT AT BEDTIME 09/13/2017 02/09/2018 Inactive Cymbalta 60 mg capsule,delayed release RxNorm: 969053 TAKE ONE CAPSULE BY MOUTH DAILY 09/13/2017 12/11/2017 Inactive Claritin-D 24 Hour 10 mg-240 mg tablet,extended release RxNorm: 5656383 Tablet(s) TAKE ONE TABLET BY MOUTH DAILY 08/28/2017 11/25/2017 Inactive Claritin-D 24 Hour 10 mg-240 mg tablet,extended release RxNorm: 2567334 TAKE ONE TABLET BY MOUTH DAILY 08/28/20172017 Inactive hydrocodone 10 mg-acetaminophen 325 mg tablet RxNorm: 854810 1 Tablet(s) PO QID as needed tooth abscess pain or back pain 08/25/2017 09/23/2017 Inactive Valium 5 mg tablet RxNorm: 133428 Tablet(s) TAKE ONE TABLET BY MOUTH EVERY NIGHT AT BEDTIME 08/07/2017 11/02/2017 Inactive Metanx (algal oil) 3 mg-35 mg-2 mg-90.314 mg capsule RxNorm: TAKE ONE CAPSULE BY MOUTH TWO TIMES DAILY 08/02/20172017 Inactive hydrocodone 10 mg-acetaminophen 325 mg tablet RxNorm: 492328 1 Tablet(s) PO QID as needed tooth abscess pain or back pain 07/27/2017 08/24/2017 Inactive enalapril 5 mg-hydrochlorothiazide 12.5 mg tablet RxNorm: 715527 TAKE ONE TABLET BY MOUTH DAILY 07/03/2017 12/28/2017 Inactive hydrocodone 10 mg-acetaminophen 325 mg tablet RxNorm: 584130 1 Tablet(s) PO QID as needed tooth abscess pain or back pain 06/23/2017 07/22/2017 Inactive hydrocodone 10 mg-acetaminophen 325 mg tablet RxNorm: 684150 1 Tablet(s) PO QID as needed tooth abscess pain or back pain 05/31/2017 06/22/2017 Inactive diclofenac sodium 75 mg tablet,delayed release RxNorm: 530765 TAKE ONE TABLET BY MOUTH TWICE A DAY 05/29/2017 09/25/2017 Inactive Valium 5 mg tablet RxNorm: 680620 Tablet(s) TAKE ONE TABLET BY MOUTH EVERY NIGHT AT BEDTIME 05/16/2017 04/17/2018 Inactive Cymbalta 60 mg capsule,delayed release RxNorm: 513041 TAKE ONE CAPSULE BY MOUTH DAILY 05/15/2017 09/11/2017 Inactive hydrocodone 10 mg-acetaminophen 325 mg tablet RxNorm: 514637 1 Tablet(s) PO QID as needed tooth abscess pain or back pain 2017 05/30/2017 Inactive Claritin-D 24 Hour 10 mg-240 mg tablet,extended release RxNorm: 3591681 Tablet(s) TAKE ONE TABLET BY MOUTH DAILY 04/19/2017 07/17/2017 Inactive hydrocodone 5 mg-acetaminophen 325 mg tablet RxNorm: 723642 1-2 Tablet(s) PO Q6 as needed 04/18/2017 05/02/2017 Inactive Effexor 75 mg tablet RxNorm: 017668 TAKE ONE TABLET BY MOUTH DAILY 04/13/2017 10/09/2017 Inactive Keflex 500 mg capsule RxNorm: 766145 1 Capsule(s) PO TID 201603/26/2017 Inactive clindamycin 300 mg capsule RxNorm: 478315 1 Capsule(s) PO TID 03/20/2017 03/26/2017 Inactive ceftriaxone 500 mg solution for injection RxNorm: 1837989 1 Gram(s) Inj 03/16/2017 03/16/2017 Inactive clindamycin 300 mg capsule RxNorm: 220036 1 Capsule(s) PO TID 03/16/2017 03/19/2017 Inactive hydrocodone 5 mg-acetaminophen 325 mg tablet RxNorm: 266697 1-2 Tablet(s) PO Q6 as needed 03/16/2017 03/16/2017 Inactive Keflex 500 mg capsule RxNorm: 352774 1 Capsule(s) PO TID 201603/19/2017 Inactive hydrocodone 10 mg-acetaminophen 325 mg tablet RxNorm: 006705 1 Tablet(s) PO QID as needed tooth abscess pain or back pain 03/16/2017 04/14/2017 Inactive simvastatin 40 mg tablet RxNorm: 540364 TAKE ONE TABLET BY MOUTH EVERY NIGHT AT BEDTIME 03/13/2017 09/08/2017 Inactive clindamycin 300 mg capsule RxNorm: 310466 1 Capsule(s) PO TID 03/10/2017 03/15/2017 Inactive hydrocodone 5 mg-acetaminophen 325 mg tablet RxNorm: 395097 1-2 Tablet(s) PO Q6 as needed 03/03/2017 03/15/2017 Inactive hydrocodone 5 mg-acetaminophen 325 mg tablet RxNorm: 056915 1 to 2 Tablet(s) PO Q6 as needed 02/15/2017 02/25/2017 Inactive hydrocodone 5 mg-acetaminophen 325 mg tablet RxNorm: 431952 1 to 2 Tablet(s) PO Q6 as needed 02/02/2017 02/12/2017 Inactive enalapril 5 mg-hydrochlorothiazide 12.5 mg tablet RxNorm: 536078 TAKE ONE TABLET BY MOUTH DAILY 01/23/2017 06/21/2017 Inactive diclofenac sodium 75 mg tablet,delayed release RxNorm: 173495 TAKE ONE TABLET BY MOUTH TWICE A DAY 01/23/2017 05/22/2017 Inactive hydrocodone 5 mg-acetaminophen 325 mg tablet RxNorm: 894731 1 to 2 Tablet(s) PO Q6 as needed 01/12/2017 01/22/2017 Inactive hydrocodone 5 mg-acetaminophen 325 mg tablet RxNorm: 771150 1 to 2 Tablet(s) PO Q6 as needed 12/29/2016 01/08/2017 Inactive hydrocodone 5 mg-acetaminophen 325 mg tablet RxNorm: 791975 1 to 2 Tablet(s) PO Q6 as needed 12/16/2016 12/26/2016 Inactive Cymbalta 60 mg capsule,delayed release RxNorm: 262835 TAKE ONE CAPSULE BY MOUTH DAILY 12/14/2016 05/12/2017 Inactive hydrocodone 5 mg-acetaminophen 325 mg tablet RxNorm: 194892 1 to 2 Tablet(s) PO Q6 as needed 11/30/2016 12/10/2016 Inactive Voltaren 1 % topical gel RxNorm: 700987 2 Gram(s) TOP QID bilateral SI joints 11/16/2016 01/14/2017 Inactive diclofenac sodium 75 mg tablet,delayed release RxNorm: 412133 TAKE ONE TABLET BY MOUTH TWICE A DAY 10/31/2016 01/22/2017 Inactive hydrocodone 5 mg-acetaminophen 325 mg tablet RxNorm: 465199 1 to 2 Tablet(s) PO Q6 as needed 10/27/2016 11/06/2016 Inactive hydrocodone 5 mg-acetaminophen 325 mg tablet RxNorm: 719167 1 to 2 Tablet(s) PO Q6 as needed 10/05/2016 10/15/2016 Inactive Effexor 75 mg tablet RxNorm: 804415 TAKE ONE TABLET BY MOUTH DAILY 10/03/2016 03/31/2017 Inactive Claritin-D 24 Hour 10 mg-240 mg tablet,extended release RxNorm: 8252462 Tablet(s) TAKE ONE TABLET BY MOUTH DAILY 09/26/2016 12/24/2016 Inactive hydrocodone 5 mg-acetaminophen 325 mg tablet RxNorm: 329671 1 to 2 Tablet(s) PO Q6 as needed 09/09/2016 09/19/2016 Inactive hydrocodone 5 mg-acetaminophen 325 mg tablet RxNorm: 752237 1 to 2 Tablet(s) PO Q6 as needed 08/19/2016 08/29/2016 Inactive hydrocodone 5 mg-acetaminophen 325 mg tablet RxNorm: 577738 1 to 2 Tablet(s) PO Q6 as needed 08/01/2016 08/11/2016 Inactive enalapril 5 mg-hydrochlorothiazide 12.5 mg tablet RxNorm: 480644 Tablet(s) TAKE ONE TABLET BY MOUTH DAILY 07/18/201601/13 Inactive Movantik 25 mg tablet RxNorm: 0969940 1 Tablet(s) PO QAM 201611/07/2017 Inactive hydrocodone 5 mg-acetaminophen 325 mg tablet RxNorm: 322604 1 to 2 Tablet(s) PO Q6 as needed 07/15/2016 07/25/2016 Inactive diclofenac sodium 75 mg tablet,delayed release RxNorm: 122599 TAKE ONE TABLET BY MOUTH TWICE A DAY 06/27/2016 10/24/2016 Inactive hydrocodone 5 mg-acetaminophen 325 mg tablet RxNorm: 728911 1 to 2 Tablet(s) PO Q6 as needed 06/16/2016 06/26/2016 Inactive Claritin-D 24 Hour 10 mg-240 mg tablet,extended release RxNorm: 5109479 Tablet(s) TAKE ONE TABLET BY MOUTH DAILY 06/10/2016 08/08/2016 Inactive Metanx (algal oil) 3 mg-35 mg-2 mg-90.314 mg capsule RxNorm: Capsule(s) TAKE ONE CAPSULE BY MOUTH TWO TIMES DAILY 06/02/2016 05/27/2017 Inactive hydrocodone 5 mg-acetaminophen 325 mg tablet RxNorm: 261905 1 to 2 Tablet(s) PO Q6 as needed 05/27/2016 06/06/2016 Inactive Valium 5 mg tablet RxNorm: 420981 Tablet(s) TAKE ONE TABLET BY MOUTH EVERY NIGHT AT BEDTIME 05/16/2016 07/14/2016 Inactive Metanx (algal oil) 3 mg-35 mg-2 mg-90.314 mg capsule RxNorm: TAKE ONE CAPSULE BY MOUTH TWO TIMES DAILY 05/11/20162015 Inactive hydrocodone 5 mg-acetaminophen 325 mg tablet RxNorm: 706706 1 to 2 Tablet(s) PO Q6 as needed 04/25/2016 05/02/2016 Inactive [SAVINGS FOR NON-COVERED DRUGS -- BIN: 427624, PCN: ASPROD1, Group: XXXXX, ID# [id number], Questions: . THIS IS NOT INSURANCE.] hydrocodone 5 mg-acetaminophen 325 mg tablet RxNorm: 117904 1 to 2 Tablet(s) PO Q6 as needed 04/01/2016 04/08/2016 Inactive [SAVINGS FOR NON-COVERED DRUGS -- BIN: 821360, PCN: ASPROD1, Group: XXXXX, ID# [id number], Questions: . THIS IS NOT INSURANCE.] diclofenac sodium 75 mg tablet,delayed release RxNorm: 673540 TAKE ONE TABLET BY MOUTH TWICE A DAY 03/21/2016 06/18/2016 Inactive enalapril 5 mg-hydrochlorothiazide 12.5 mg tablet RxNorm: 426211 TAKE ONE TABLET BY MOUTH DAILY 03/21/2016 07/17/2016 Inactive Claritin-D 24 Hour 10 mg-240 mg tablet,extended release RxNorm: 4363379 Tablet(s) TAKE ONE TABLET BY MOUTH DAILY 03/11/2016 06/08/2016 Inactive hydrocodone 5 mg-acetaminophen 325 mg tablet RxNorm: 633764 1 to 2 Tablet(s) PO Q6 as needed 03/08/2016 03/15/2016 Inactive [SAVINGS FOR NON-COVERED DRUGS -- BIN: 743604, PCN: ASPROD1, Group: XXXXX, ID# [id number], Questions: . THIS IS NOT INSURANCE.] simvastatin 40 mg tablet RxNorm: 765466 1 Tablet(s) PO QHS 10/03/2016 Inactive Effexor 75 mg tablet RxNorm: 204552 Tablet(s) TAKE ONE TABLET BY MOUTH DAILY 03/08/2016 10/02/2016 Inactive simvastatin 40 mg tablet RxNorm: 010749 TAKE ONE TABLET BY MOUTH EVERY NIGHT AT BEDTIME 02/05/2016 05/04/2016 Inactive Request already responded to by other means (e.g. phone or fax) hydrocodone 5 mg-acetaminophen 325 mg tablet RxNorm: 066119 1 to 2 Tablet(s) PO Q6 as needed 02/02/2016 02/09/2016 Inactive [SAVINGS FOR NON-COVERED DRUGS -- BIN: 429095, PCN: ASPROD1, Group: XXXXX, ID# [id number], Questions: . THIS IS NOT INSURANCE.] simvastatin 40 mg tablet RxNorm: 365511 1 Tablet(s) PO QHS 03/07/2016 Inactive Cymbalta 60 mg capsule,delayed release RxNorm: 099775 TAKE ONE CAPSULE BY MOUTH DAILY 01/14/2016 06/11/2016 Inactive Request already responded to by other means ( e.g. phone or fax) Claritin-D 24 Hour 10 mg-240 mg tablet,extended release RxNorm: 3330837 Tablet(s) TAKE ONE TABLET BY MOUTH DAILY 01/14/2016 02/12/2016 Inactive hydrocodone 5 mg-acetaminophen 325 mg tablet RxNorm: 696042 1 to 2 Tablet(s) PO Q6 as needed 01/14/2016 01/21/2016 Inactive [SAVINGS FOR NON-COVERED DRUGS -- BIN: 511999, PCN: ASPROD1, Group: XXXXX, ID# [id number], Questions: . THIS IS NOT INSURANCE.] Claritin-D 24 Hour 10 mg-240 mg tablet,extended release RxNorm: 1747407 TAKE ONE TABLET BY MOUTH DAILY 01/14/20162015 Inactive Cymbalta 60 mg capsule,delayed release RxNorm: 068521 Capsule(s) TAKE ONE CAPSULE BY MOUTH DAILY 01/12/2016 01/13/2016 Inactive Claritin-D 24 Hour 10 mg-240 mg tablet,extended release RxNorm: 8189906 TAKE ONE TABLET BY MOUTH DAILY 01/11/20162015 Inactive Claritin-D 24 Hour 10 mg-240 mg tablet,extended release RxNorm: 0914567 TAKE ONE TABLET BY MOUTH DAILY 01/11/20162015 Inactive Claritin-D 24 Hour 10 mg-240 mg tablet,extended release RxNorm: 5689406 TAKE ONE TABLET BY MOUTH DAILY 01/07/20162015 Inactive Effexor 75 mg tablet RxNorm: 600090 TAKE ONE TABLET BY MOUTH DAILY 01/01/2016 02/29/2016 Inactive diclofenac sodium 75 mg tablet,delayed release RxNorm: 632906 TAKE ONE TABLET BY MOUTH TWICE A DAY 12/23/2015 03/20/2016 Inactive enalapril 5 mg-hydrochlorothiazide 12.5 mg tablet RxNorm: 947423 TAKE ONE TABLET BY MOUTH DAILY 12/23/2015 03/20/2016 Inactive hydrocodone 5 mg-acetaminophen 325 mg tablet RxNorm: 844082 1 to 2 Tablet(s) PO Q6 as needed 12/22/2015 12/29/2015 Inactive [SAVINGS FOR NON-COVERED DRUGS -- BIN: 551675, PCN: ASPROD1, Group: XXXXX, ID# [id number], Questions: . THIS IS NOT INSURANCE.] Valium 5 mg tablet RxNorm: 440246 Tablet(s) TAKE ONE TABLET BY MOUTH EVERY NIGHT AT BEDTIME 12/01/2015 04/17/2018 Inactive hydrocodone 5 mg-acetaminophen 325 mg tablet RxNorm: 248229 1 to 2 Tablet(s) PO Q6 as needed 11/30/2015 12/07/2015 Inactive [SAVINGS FOR NON-COVERED DRUGS -- BIN: 433123, PCN: ASPROD1, Group: XXXXX, ID# [id number], Questions: . THIS IS NOT INSURANCE.] hydrocodone 5 mg-acetaminophen 325 mg tablet RxNorm: 292087 1 to 2 Tablet(s) PO Q6 as needed 11/09/2015 11/16/2015 Inactive [SAVINGS FOR NON-COVERED DRUGS -- BIN: 413542, PCN: ASPROD1, Group: XXXXX, ID# [id number], Questions: . THIS IS NOT INSURANCE.] Claritin-D 24 Hour 10 mg-240 mg tablet,extended release RxNorm: 9813571 Tablet(s) TAKE ONE TABLET BY MOUTH DAILY 11/05/2015 11/04/2015 Inactive Claritin-D 24 Hour 10 mg-240 mg tablet,extended release RxNorm: 6062197 Tablet(s) TAKE ONE TABLET BY MOUTH DAILY 11/05/2015 01/06/2016 Inactive Claritin-D 24 Hour 10 mg-240 mg tablet,extended release RxNorm: 0028803 Tablet(s) TAKE ONE TABLET BY MOUTH DAILY 10/30/2015 03/10/2016 Inactive hydrocodone 5 mg-acetaminophen 325 mg tablet RxNorm: 658963 1 to 2 Tablet(s) PO Q6 as needed 10/09/2015 10/16/2015 Inactive [SAVINGS FOR NON-COVERED DRUGS -- BIN: 000534, PCN: ASPROD1, Group: XXXXX, ID# [id number], Questions: . THIS IS NOT INSURANCE.] Effexor 75 mg tablet RxNorm: 214454 TAKE ONE TABLET BY MOUTH DAILY 10/05/2015 12/31/2015 Inactive simvastatin 40 mg tablet RxNorm: 433886 1 Tablet(s) PO QHS 01/31/2016 Inactive hydrocodone 5 mg-acetaminophen 325 mg tablet RxNorm: 995768 1 to 2 Tablet(s) PO Q6 as needed 09/15/2015 09/22/2015 Inactive [SAVINGS FOR NON-COVERED DRUGS -- BIN: 158074, PCN: ASPROD1, Group: XXXXX, ID# [id number], Questions: . THIS IS NOT INSURANCE.] Valium 5 mg tablet RxNorm: 451502 Tablet(s) TAKE ONE TABLET BY MOUTH EVERY NIGHT AT BEDTIME 09/08/2015 04/17/2018 Inactive enalapril 5 mg-hydrochlorothiazide 12.5 mg tablet RxNorm: 290480 Tablet(s) TAKE ONE TABLET BY MOUTH DAILY 08/21/201512/17 Inactive diclofenac sodium 75 mg tablet,delayed release RxNorm: 380993 1 Tablet(s) PO BID 08/21/2015 12/18/2015 Inactive hydrocodone 5 mg-acetaminophen 325 mg tablet RxNorm: 635635 1 to 2 Tablet(s) PO Q6 as needed 08/13/2015 08/20/2015 Inactive [SAVINGS FOR NON-COVERED DRUGS -- BIN: 446760, PCN: ASPROD1, Group: XXXXX, ID# [id number], Questions: . THIS IS NOT INSURANCE.] clindamycin 300 mg capsule RxNorm: 005616 1 Capsule(s) PO TID 08/06/2015 08/10/2015 Inactive Claritin-D 24 Hour 10 mg-240 mg tablet,extended release RxNorm: 1332438 Tablet(s) TAKE ONE TABLET BY MOUTH DAILY 07/23/2015 10/20/2015 Inactive hydrocodone 5 mg-acetaminophen 325 mg tablet RxNorm: 459134 1 to 2 Tablet(s) PO Q6 as needed 07/23/2015 07/30/2015 Inactive [SAVINGS FOR NON-COVERED DRUGS -- BIN: 368693, PCN: ASPROD1, Group: XXXXX, ID# [id number], Questions: . THIS IS NOT INSURANCE.] Claritin-D 24 Hour 10 mg-240 mg tablet,extended release RxNorm: 6149049 TAKE ONE TABLET BY MOUTH DAILY 07/22/20152015 Inactive Valium 5 mg tablet RxNorm: 892387 Tablet(s) TAKE ONE TABLET BY MOUTH EVERY NIGHT AT BEDTIME 07/22/2015 04/17/2018 Inactive Claritin-D 24 Hour 10 mg-240 mg tablet,extended release RxNorm: 6046487 TAKE ONE TABLET BY MOUTH DAILY 07/20/20152015 Inactive Cymbalta 60 mg capsule,delayed release RxNorm: 491032 TAKE ONE CAPSULE BY MOUTH DAILY 07/20/2015 01/11/2016 Inactive cyclobenzaprine 10 mg tablet RxNorm: 034946 TAKE ONE TABLET BY MOUTH AT BEDTIME NEEDED 07/06/2015 08/04/2015 Inactive hydrocodone 5 mg-acetaminophen 325 mg tablet RxNorm: 308577 1 to 2 Tablet(s) PO Q6 as needed 06/23/2015 06/30/2015 Inactive [SAVINGS FOR NON-COVERED DRUGS -- BIN: 956550, PCN: ASPROD1, Group: XXXXX, ID# [id number], Questions: . THIS IS NOT INSURANCE.] Effexor 75 mg tablet RxNorm: 919176 1 Tablet(s) PO daily 201409/28/2015 Inactive hydrocodone 5 mg-acetaminophen 325 mg tablet RxNorm: 690297 1 to 2 Tablet(s) PO Q6 as needed 05/22/2015 05/29/2015 Inactive [SAVINGS FOR NON-COVERED DRUGS -- BIN: 537710, PCN: ASPROD1, Group: XXXXX, ID# [id number], Questions: . THIS IS NOT INSURANCE.] Valium 5 mg tablet RxNorm: 491570 Tablet(s) TAKE ONE TABLET BY MOUTH EVERY NIGHT AT BEDTIME 05/22/2015 04/17/2018 Inactive diclofenac sodium 75 mg tablet,delayed release RxNorm: 342487 1 Tablet(s) PO BID 05/04/2015 08/20/2015 Inactive Metanx (algal oil) 3 mg-35 mg-2 mg-90.314 mg capsule RxNorm: 1 Capsule(s) PO BID 05/04/2015 04/27/2016 Inactive enalapril 5 mg-hydrochlorothiazide 12.5 mg tablet RxNorm: 348845 TAKE ONE TABLET BY MOUTH DAILY 04/27/2015 08/20/2015 Inactive hydrocodone 5 mg-acetaminophen 325 mg tablet RxNorm: 486529 1 to 2 Tablet(s) PO Q6 as needed 04/27/2015 05/04/2015 Inactive [SAVINGS FOR NON-COVERED DRUGS -- BIN: 150653, PCN: ASPROD1, Group: XXXXX, ID# [id number], Questions: . THIS IS NOT INSURANCE.] hydrocodone 5 mg-acetaminophen 325 mg tablet RxNorm: 055588 1 to 2 Tablet(s) PO Q6 as needed 03/26/2015 04/02/2015 Inactive [SAVINGS FOR NON-COVERED DRUGS -- BIN: 428705, PCN: ASPROD1, Group: XXXXX, ID# [id number], Questions: . THIS IS NOT INSURANCE.] Claritin-D 24 Hour 10 mg-240 mg tablet,extended release RxNorm: 6149514 Tablet(s) TAKE ONE TABLET BY MOUTH DAILY 03/24/2015 07/19/2015 Inactive Valium 5 mg tablet RxNorm: 016263 TAKE ONE TABLET BY MOUTH EVERY NIGHT AT BEDTIME 03/05/2015 04/03/2015 Inactive Valium 5 mg tablet RxNorm: 754444 1 Tablet(s) PO daily as needed 03/05/2015 03/05/2015 Inactive [SAVINGS FOR NON-COVERED DRUGS -- BIN:952892, PCN: ASPROD1, Group : XXXXX, ID# [id number], Questions: . THIS IS NOT INSURANCE.] hydrocodone 5 mg-acetaminophen 325 mg tablet RxNorm: 199867 1 to 2 Tablet(s) PO Q6 as needed 02/18/2015 02/25/2015 Inactive [SAVINGS FOR NON-COVERED DRUGS -- BIN: 113401, PCN: ASPROD1, Group: XXXXX, ID# [id number], Questions: . THIS IS NOT INSURANCE.] enalapril 5 mg-hydrochlorothiazide 12.5 mg tablet RxNorm: 336213 1 Tablet(s) PO daily 01/30/2015 04/26/2015 Inactive hydrocodone 5 mg-acetaminophen 325 mg tablet RxNorm: 435007 1 to 2 Tablet(s) PO Q6 as needed 01/22/2015 01/29/2015 Inactive [SAVINGS FOR NON-COVERED DRUGS -- BIN: 720680, PCN: ASPROD1, Group: XXXXX, ID# [id number], Questions: . THIS IS NOT INSURANCE.] Claritin-D 24 Hour 10 mg-240 mg tablet,extended release RxNorm: 2827055 TAKE ONE TABLET BY MOUTH DAILY 01/15/20152014 Inactive Claritin-D 24 Hour 10 mg-240 mg tablet,extended release RxNorm: 3575221 Tablet(s) TAKE ONE TABLET BY MOUTH DAILY 01/15/2015 01/14/2015 Inactive cyclobenzaprine 10 mg tablet RxNorm: 132945 1 Tablet(s) PO QHS as needed 12/29/2014 01/27/2015 Inactive hydrocodone 5 mg-acetaminophen 325 mg tablet RxNorm: 030380 1 to 2 Tablet(s) PO Q6 as needed 12/23/2014 12/30/2014 Inactive [SAVINGS FOR NON-COVERED DRUGS -- BIN: 090513, PCN: ASPROD1, Group: XXXXX, ID# [id number], Questions: . THIS IS NOT INSURANCE.] Cymbalta 60 mg capsule,delayed release RxNorm: 530267 1 Capsule(s) PO daily 12/18/2014 07/15/2015 Inactive Claritin-D 24 Hour 10 mg-240 mg tablet,extended release RxNorm: 6604218 TAKE ONE TABLET BY MOUTH DAILY 12/15/20142014 Inactive Claritin-D 24 Hour 10 mg-240 mg tablet,extended release RxNorm: 4877043 TAKE ONE TABLET BY MOUTH DAILY 12/15/20142014 Inactive Claritin-D 24 Hour 10 mg-240 mg tablet,extended release RxNorm: 1303266 TAKE ONE TABLET BY MOUTH DAILY 12/15/20142014 Inactive Claritin-D 24 Hour 10 mg-240 mg tablet,extended release RxNorm: 0253922 1 Tablet(s ) PO daily 12/10/2014 12/14/2014 Inactive hydrocodone 5 mg-acetaminophen 325 mg tablet RxNorm: 893482 1 to 2 Tablet(s) PO Q6 as needed 12/08/2014 12/22/2014 Inactive [SAVINGS FOR NON-COVERED DRUGS -- BIN: 923013, PCN: ASPROD1, Group: XXXXX, ID# [id number], Questions: . THIS IS NOT INSURANCE.] hydrocodone 5 mg-acetaminophen 325 mg tablet RxNorm: 578023 1 to 2 Tablet(s) PO Q6 as needed 11/25/2014 12/07/2014 Inactive [SAVINGS FOR NON-COVERED DRUGS -- BIN: 386302, PCN: ASPROD1, Group: XXXXX, ID# [id number], Questions: . THIS IS NOT INSURANCE.] Claritin-D 24 Hour 10 mg-240 mg tablet,extended release RxNorm: 3799570 1 Tablet(s ) PO daily 11/07/2014 12/06/2014 Inactive Claritin-D 24 Hour 10 mg-240 mg tablet,extended release RxNorm: 3450599 1 Tablet(s ) PO daily 11/07/2014 11/06/2014 Inactive hydrocodone 5 mg-acetaminophen 325 mg tablet RxNorm: 949602 1 to 2 Tablet(s) PO Q6 as needed 11/03/2014 11/24/2014 Inactive [SAVINGS FOR NON-COVERED DRUGS -- BIN: 056411, PCN: ASPROD1, Group: XXXXX, ID# [id number], Questions: . THIS IS NOT INSURANCE.] Valium 5 mg tablet RxNorm: 458622 1 Tablet(s) PO daily as needed 10/23/2014 12/20/2014 Inactive [SAVINGS FOR NON-COVERED DRUGS -- BIN:711351, PCN: ASPROD1, Group : XXXXX, ID# [id number], Questions: . THIS IS NOT INSURANCE.] Cialis 5 mg tablet RxNorm: 316276 1/2 Tablet(s) PO daily No Stop Date Active [SAVINGS FOR NON-COVERED DRUGS -- BIN:[id number], PCN: [id number], Group: [id number], ID# [id number], Questions: . THIS IS NOT INSURANCE.] aspirin 81 mg tablet RxNorm: 494135 1 Tablet(s) PO daily No Start Date Active Effexor 75 mg tablet RxNorm: 318252 1 Tablet(s) PO daily No Start Date 05/31/2015 Inactive Valium 5 mg tablet RxNorm: 247895 1 Tablet(s) PO daily as needed No Start Date 10/22/2014 Inactive simvastatin 40 mg tablet RxNorm: 710176 1 Tablet(s) PO QHS No Start Date 10/04/2015 Inactive enalapril 5 mg-hydrochlorothiazide 12.5 mg tablet RxNorm: 714177 oral No Start Date 01/29/2015 Inactive cyclobenzaprine 10 mg tablet RxNorm: 096263 1 Tablet(s) PO as needed No Start Date 12/28/2014 Inactive Cymbalta 60 mg capsule,delayed release RxNorm: 494177 1 Capsule(s) PO daily No Start Date 12/17/2014 Inactive hydrocodone 5 mg-acetaminophen 325 mg tablet RxNorm: 022068 1 to 2 Tablet(s) PO Q6 as needed No Start Date 11/02/2014 Inactive diclofenac sodium 75 mg tablet,delayed release RxNorm: 201687 1 Tablet(s) PO BID No Start Date 2015 Inactive Cialis 5 mg tablet RxNorm: 267220 1 Tablet(s) PO daily No Start Date 10/12/2014 Inactive Medication Administered Medication Codes Instructions Start Date Status ceftriaxone 500 mg solution for injection RxNorm: 9767554 1Gram 03/16/2017 No longer Active Immunizations No [...] Observation Code Item Item Code Result Date Total Psa Ord10 PSA 1.13 ng/mL 05/28/2018 Lipid Ord30 CHOL 178 mg/dL 05/28/2018 Lipid Ord30 HDL 56.0 mg/dl 05/28/2018 Lipid Ord30 TRIG 194 mg/dL 05/28/2018 Lipid Ord30 LDL 83 mg/dL 05/28/2018 Lipid Ord30 C/HDL 3.2 Ratio 05/28/2018 Comp Metabolic Jln744 NA 140 mEq/L 05/28/2018 Comp Metabolic Nte415 K 4.7 mEq/L 05/28/2018 Comp Metabolic Cmb808 CL 101 mEq/L 05/28/2018 Comp Metabolic Nyr203 CO2 30.0 mEq/L 05/28/2018 Comp Metabolic Xik095 ANION GAP 14 05/28/2018 Comp Metabolic Gqq884 GLUCOSE 103 mg/dL 05/28/2018 Comp Metabolic Fnx170 Creat 1.0 mg/dL 05/28/2018 Comp Metabolic Jrw777 eGFR 83 ml/min/1.73m2 05/28/2018 Comp Metabolic Xvh619 BUN 23 mg/dL 05/28/2018 Comp Metabolic Ztv818 B/C Ratio 23.5 Ratio 05/28/2018 Comp Metabolic Gkt364 CALCIUM 9.5 mg/dL 05/28/2018 Comp Metabolic Wop734 ALK PHOS 46 U/L 05/28/2018 Comp Metabolic Lvg088 AST(SGOT) 24 U/L 05/28/2018 Comp Metabolic Gyi375 ALT(SGPT) 51 U/L 05/28/2018 Comp Metabolic Ajz997 BILI T 0.7 mg/dL 05/28/2018 Comp Metabolic Fas228 ALBUMIN 4.6 g/dL 05/28/2018 Comp Metabolic Kii752 TPRO 6.7 g/dL 05/28/2018 Comp Metabolic Rhv653 GLOB 2.2 g/dL 05/28/2018 Comp Metabolic Rvs589 A/G Ratio 2.1 Ratio 05/28/2018 Comp Metabolic Gre817 Osmo 283 mOsmo 05/28/2018 Tsh Ord6 TSH [...] 30.7 pg 05/28/2018 Cbc With Differential Ord2 [place]% 11.2 % 05/28/2018 Cbc With Differential Ord2 [...] 0.88 K/ul 05/28/2018 Cbc With Differential Ord2 [place] ABS# 0.7 K/ul 05/28/2018 Cbc With Differential Ord2 Eos ABS# 0.2 K/ul 05/28/2018 Cbc With Differential Ord2 Baso ABS# 0.0 K/ul 05/28/2018 Hepatitis C Antibody With Reflex For Hcv Antibody Verificat 110380 HEPATITIS C ANTIBODY NEGATIVE 07/19/2016 Lipid Ord30 CHOL 180 mg/dL 07/18/2016 Lipid Ord30 HDL 56.0 mg/dl 07/18/2016 Lipid Ord30 TRIG 153 mg/dL 07/18/2016 Lipid Ord30 LDL 93 mg/dL 07/18/2016 Lipid Ord30 C/HDL 3.2 Ratio 07/18/2016 Comp Metabolic Lap448 NA 136 mEq/L 07/18/2016 Comp Metabolic Kjh100 K 4.3 mEq/L 07/18/2016 Comp Metabolic Kot673 CL 100 mEq/L 07/18/2016 Comp Metabolic Vuj448 CO2 30.0 mEq/L 07/18/2016 Comp Metabolic Bec367 ANION GAP 10 07/18/2016 Comp Metabolic Nkn333 GLUCOSE 104 mg/dL 07/18/2016 Comp Metabolic Vcy447 Creat 1.0 mg/dL 07/18/2016 Comp Metabolic Lho500 eGFR 81 ml/min/1.73m2 07/18/2016 Comp Metabolic Imv738 BUN 21 mg/dL 07/18/2016 Comp Metabolic Diq826 B/C Ratio 20.8 Ratio 07/18/2016 Comp Metabolic Qdz316 CALCIUM 9.5 mg/dL 07/18/2016 Comp Metabolic Djx095 ALK PHOS 45 U/L 07/18/2016 Comp Metabolic Dvg540 AST(SGOT) 26 U/L 07/18/2016 Comp Metabolic Akm394 ALT(SGPT) 52 U/L 07/18/2016 Comp Metabolic Rtg079 BILI T 0.8 mg/dL 07/18/2016 Comp Metabolic Dag487 ALBUMIN 4.7 g/dL 07/18/2016 Comp Metabolic Dcs311 TPRO 6.9 g/dL 07/18/2016 Comp Metabolic Vci559 GLOB 2.2 g/dL 07/18/2016 Comp Metabolic Gil483 A/G Ratio 2.2 Ratio 07/18/2016 Comp Metabolic Owz351 Osmo 275 mOsmo 07/18/2016 Cbc With Differential [...] 94.0 fl 07/18/2016 Cbc With Differential Ord2 MCH 31.5 pg 07/18/2016 Cbc With Differential Ord2 [place]% 11.2 % 07/18/2016 Cbc With Differential Ord2 [...] 0.69 K/ul 07/18/2016 Cbc With Differential Ord2 [place] ABS# 0.5 K/ul 07/18/2016 Cbc With Differential Ord2 Eos ABS# 0.2 K/ul 07/18/2016 Cbc With Differential Ord2 Baso ABS# 0.0 K/ul 07/18/2016 Tsh Ord6 hTSH II 1.99 uIU/mL 07/18/2016 Total Psa Ord10 PSA 0.75 ng/mL 07/18/2016 %Hba1C Jnc550 % HbA1c 39031-4 5.8 % 07/18/2016 %Hba1C Ihb808 Gluc Ave 120 mg/dL 07/18/2016 Review of [...] Code : 8480-6 BMI: 32.7 Code : 99171-5 Heart Rate 1 : 85 bpm Height: 5'10" SpO2: 99% Weight: 228 lbs 10/20/2017 Blood Pressure 1: 138/78 Code : 8480-6 BMI: 32.4 Code : 61260-6 Heart Rate 1 : 80 bpm Height: 5'10" SpO2: 98% Weight: 226 lbs 03/20/2017 Blood Pressure 1: 134/72 Code : 8480-6 Heart Rate 1: 87 bpm Height: 5'10" SpO2: 97% 03/16/2017 Blood Pressure 1: 150/84 Code : 8480-6 BMI: 32.4 Code : 41132-9 Heart Rate 1 : 98 bpm Height: 5'10" SpO2: 97% Weight: 226 lbs 03/10/2017 Blood Pressure 1: 140/72 Code : 8480-6 BMI: 32.4 Code : 70927-6 Heart Rate 1 : 81 bpm Height: 5'10" SpO2: 97% Weight: 226 lbs 11/16/2016 Blood Pressure 1: 142/80 Code : 8480-6 BMI: 32.1 Code : 98156-1 Heart Rate 1 : 95 bpm Height: 5'10" SpO2: 98% Weight: 224 lbs 07/15/2016 Blood Pressure 1: 130/78 Code : 8480-6 BMI: 32.0 Code : 42858-4 Heart Rate 1 : 85 bpm Height: 5'10" SpO2: 95% Weight: 223 lbs 03/08/2016 Blood Pressure 1: 138/84 Code : 8480-6 BMI: 31.6 Code : 89165-0 Heart Rate 1 : 86 bpm Height: 5'10" SpO2: 98% Weight: 220 lbs 11/26/2015 Blood Pressure 1: 132/82 Code : 8480-6 BMI: 31.6 Code : 94565-9 Height: 5'10 " Weight: 220 lbs 08/06/2015 Blood Pressure 1: 138/74 Code : 8480-6 BMI: 31.0 Code : 33200-4 Heart Rate 1 : 87 bpm Height: 5'10" SpO2: 95% Weight: 216 lbs 05/04/2015 Blood Pressure 1: 128/80 Code : 8480-6 BMI: 33.6 Code : 88270-1 Heart Rate 1 : 94 bpm Height: 5'10" SpO2: 97% Weight: 234 lbs 11/06/2014 Blood Pressure 1: 132/92 Code : 8480-6 BMI: 31.1 Code : 95647-3 Heart Rate 1 : 88 bpm Height: [...] Low back pain[ICD10: M54.5] Julianna Mcfarlane MD, [facility] CPT-4 : 25565 05/24/2018 [id number] EST. PATIENT, LEVEL IV Diagnosis: Bilateral primary osteoarthritis of knee[ICD10: M17.0] Julianna Mcfarlane MD, [facility] CPT-4: 82413 10/20/2017 [id number] EST. PATIENT, LEVEL IV Diagnosis: Periapical abscess without sinus[ICD10: K04.7] Diagnosis: Cellulitis and abscess of mouth[ICD10: K12.2] Julianna Mcfarlane MD, [facility] CPT-4: 82891 03/20/2017 ([id number]) [id number] EST. PATIENT, LEVEL III Diagnosis: Periapical abscess without sinus[ICD10: K04.7] Diagnosis: Cellulitis and abscess of mouth[ICD10: K12.2] Mayte Mcfarlane MD, [facility] CPT-4: 39329 03/16/2017 ([id number]) 55159 EST. PATIENT, LEVEL III Diagnosis: Periapical abscess without sinus[ICD10: K04.7] Niya Mcfarlane MD, [facility] CPT-4: 77956 03/10/2017 ([id number]) 80432 EST. PATIENT, LEVEL IV Diagnosis: Essential (primary) hypertension[ICD10: I10] Diagnosis: Low back pain[ICD10: M54.5] Mayte Mcfarlane MD, [facility] CPT- 4: 40939 11/16/2016 ([id number]) 70461 EST. PATIENT, LEVEL IV Diagnosis: Mixed hyperlipidemia[ICD10: E78.2] Diagnosis: Essential (primary) hypertension[ICD10: I10] Diagnosis: Impaired fasting glucose[ICD10: R73.01] Diagnosis: Encounter for screening for malignant neoplasm of prostate[ICD10: Z12.5] Diagnosis: Encounter for screening for other viral diseases[ICD10: Z11.59] Diagnosis: Drug induced constipation[ICD10: K59.03] Niya Mcfarlane MD, [facility] CPT-4: 48752 07/15/2016 ([id number]) 11379 EST. PATIENT, LEVEL III Diagnosis: Bilateral primary osteoarthritis of knee[ICD10: M17.0] Niya Mcfarlane MD, [facility] CPT-4: 65348 03/08/2016 ([id number]) 67128 EST. PATIENT, LEVEL III Diagnosis: Bilateral primary osteoarthritis of knee[ICD10: M17.0] Niya Mcfarlane MD, [facility] CPT-4: 27613 11/26/2015 [id number] EST. PATIENT, LEVEL IV Diagnosis: Cervicalgia[ICD10: M54.2] Diagnosis: Other specified polyneuropathies[ICD10: G62.89] Diagnosis: Dental caries, unspecified[ICD10: K02.9] Diagnosis: Major depressive disorder, single episode, unspecified[ICD10: F32.9] Niya Mcfarlane MD, [facility] CPT-4: 12110 08/06/2015 ([id number]) 82444 EST. PATIENT, LEVEL IV Diagnosis: Mixed hyperlipidemia[ICD10: E78.2] Diagnosis: Idiopathic gout, unspecified ankle and foot[ICD10: M10.079] Diagnosis: Other specified polyneuropathies[ICD10: G62.89] Diagnosis: Morbid (severe) obesity due to excess calories[ICD10: E66.01] [facility] CPT-4: 50431 05/04/2015 ([id number]) OFFICE VISIT, NEW - LEVEL 4 Diagnosis: GOUT[ICD9: 274.9] Diagnosis: Sinusitis, acute[ICD9: 461.9] Diagnosis: HYPERLIPIDEMIA[ICD9: 272.4] [facility] CPT- 4: 78071 11/06/2014 Plan of Care Planned Activity Notes Codes Status Date Patient Education: Patient Medication Summary Completed 05/28/2018 Patient Education: Patient Medication Summary Completed 05/28/2018 Care Plan: [facility] Pending 05/28/2018 Visit Plan: OA knees - pt has chronic pain - has been maintained on current medications, has not sought out other medications, only uses PRN pain medications as directed, and understands the consequences of over- medication. 05/24/2018 Appointment: Julianna Stanford WPtel: [phone] [facility] [place] (15 min) Moderate 05/24/2018 Patient Education: Patient Medication Summary Completed 05/24/2018 Patient Education: Back Pain Completed 05/24/2018 Appointment: Niya Bryant WPtel: [phone] [phone] [place] (15 min) Moderate 05/21/2018 Visit Plan: OA knees - pt has chronic pain - has been maintained on current medications, has not sought out other medications, only uses PRN pain medications as directed, and understands the consequences of over- medication. 10/20/2017 Appointment: Julianna Stanford WPtel: [facility] [place] (30 min) Complex 10/20/2017 Patient Education: Patient Medication Summary Completed 10/20/2017 Appointment: Julianna Stanford WPtel: [facility] [place] (15 min) Moderate 10/19/2017 Visit Plan: Cellulitis/Abscess - continue with current treatment course - restart keflex as patient had improvement of symptoms on the rocephin. continue with clindamycin and increase probiotic to tid dosing. Keep follow up appointment with Dr. Hendrix on 03/28. Notify clinic with any changes or concerns, or with any questions. 03/20/2017 Appointment: Julianna Stanford WPtel: [facility] [place] (30 min) Complex 03/20/2017 Patient [...] tid dosing. 03/16/2017 Appointment: Mayte Mcfarlane WPtel: [phone] [facility] (15 min) Moderate 03/16/2017 Patient Education: [...] plan. 03/10/2017 Appointment: Niya Bryant WPtel: [phone] [phone] [place] (15 min) Moderate 03/10/2017 Patient [...] worsen. 11/16/2016 Appointment: Mayte Mcfarlane WPtel: [phone] [facility] (15 min) Moderate 11/16/2016 Patient Education: [...] hgb a1c 07/15/2016 Appointment: Niya Bryant WPtel: [phone] [phone] (15 min) Moderate 07/15/2016 Patient Education: Patient Medication Summary Completed 07/15/2016 Patient Education: Obesity Completed 07/15/2016 Patient Education: Hypertension Completed 07/15/2016 Visit Plan: OA knees - pt has chronic pain - has been maintained on current medications, has not sought out other medications, only uses PRN pain medications as directed, and understands the consequences of over- medication. 03/08/2016 Appointment: Niya Bryant WPtel: [phone] (30 min) Complex 03/08/2016 Patient Education: Patient [...] plan. 11/26/2015 Appointment: Niya Bryant WPtel: [phone] [phone] (30 min) Complex 11/26/2015 Patient Education: [...] to medications. 11/06/2014 Appointment: Mayte Mcfarlane WPtel: [facility] [place] New Patient 11/06/2014 Patient [...]
--- OUTSIDE RECORDS SUMMARY | 2018-07-11 12:54 | XMS REPORT | CCD ---
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 Name Role Phone PP Unavailable CCM Unavailable Summary Purpose Interface Exchange Insurance Providers Payer name Policy type / Coverage type Covered alliance party ID Effective Begin Date Effective End Date Blue Cross Blue [facility] Blue Cross/Blue Shield [id number] Unknown Unknown Family history Father Diagnosis Age [...] Unknown Danielle 11/06/[address]: 364217893 Has never smoked or chewed tobacco 11/06/2014 Alcohol history Unknown occasionally drinks alcohol 11/06/2014 Allergies, Adverse Reactions, Alerts Substance Reaction Codes Entered Date Inactivated Date Status * NO KNOWN FOOD ALLERGIES Unknown 11/06/2014 No Inactive Date Active amoxicillin RxNorm: 723 11/06/2014 No Inactive Date Active AUGMENTIN RxNorm: 204829 11/06/2014 No Inactive Date Active Past Medical History Illness Codes Condition Status Onset Date Resolved Date Encounter for screening for malignant neoplasm of prostate ICD-9: V76.44 ICD-10: Z12.5 Active 07/15/2016 Unknown Essential (primary) hypertension ICD-9: 401.9 ICD-10: I10 Active 07/15/2016 Unknown Mixed hyperlipidemia ICD-9: 272.4 [...] ICD-9: V73.89 ICD-10: Z11.59 Active 07/15/2016 Unknown Impaired fasting glucose ICD-9: 790.21 ICD-10: R73.01 Active 07/15/2016 Unknown Depression Unknown Active 08/06/2015 [...] hypertension ICD-9: 401.9 ICD-10: I10 07/15/2016 Active Mixed hyperlipidemia ICD-9: 272.4 ICD-10: [...] diseases ICD-9: V73.89 ICD-10: Z11.59 07/15/2016 Active Impaired fasting glucose ICD-9: 790.21 ICD-10: R73.01 07/15/2016 Active Depression Unknown 08/06/2015 Active Cervicalgia [...] enalapril 5 mg-hydrochlorothiazide 12.5 mg tablet RxNorm: 112242 TAKE ONE TABLET BY MOUTH DAILY 05/28/2018 11/23/2018 Active hydrocodone 10 mg-acetaminophen 325 mg tablet RxNorm: 728281 1 Tablet(s) PO QID as needed tooth abscess pain or back pain 05/15/2018 06/13/2018 Active Cymbalta 60 mg capsule,delayed release RxNorm: 588031 TAKE ONE CAPSULE BY MOUTH DAILY 05/14/2018 08/11/2018 Active diclofenac sodium 75 mg tablet,delayed release RxNorm: 258362 TAKE ONE TABLET BY MOUTH TWICE A DAY 04/23/2018 09/19/2018 Active Valium 5 mg tablet RxNorm: 248523 Tablet(s) TAKE ONE TABLET BY MOUTH EVERY NIGHT AT BEDTIME 04/18/2018 05/17/2018 Inactive hydrocodone 10 mg-acetaminophen 325 mg tablet RxNorm: 204599 1 Tablet(s) PO QID as needed tooth abscess pain or back pain 04/16/2018 05/14/2018 Inactive hydrocodone 10 mg-acetaminophen 325 mg tablet RxNorm: 680602 1 Tablet(s) PO QID as needed tooth abscess pain or back pain 03/15/2018 04/13/2018 Inactive Effexor 75 mg tablet RxNorm: 733179 TAKE ONE TABLET BY MOUTH DAILY 03/14/2018 08/10/2018 Active hydrocodone 10 mg-acetaminophen 325 mg tablet RxNorm: 432873 1 Tablet(s) PO QID as needed tooth abscess pain or back pain 02/16/2018 03/14/2018 Inactive simvastatin 40 mg tablet RxNorm: 245147 TAKE ONE TABLET BY MOUTH EVERY NIGHT AT BEDTIME 02/12/2018 06/11/2018 Active Cymbalta 60 mg capsule,delayed release RxNorm: 687601 TAKE ONE CAPSULE BY MOUTH DAILY 02/12/2018 05/12/2018 Inactive diclofenac sodium 75 mg tablet,delayed release RxNorm: 059345 TAKE ONE TABLET BY MOUTH TWICE A DAY 01/26/2018 04/22/2018 Inactive hydrocodone 10 mg-acetaminophen 325 mg tablet RxNorm: 330630 1 Tablet(s) PO QID as needed tooth abscess pain or back pain 01/18/2018 02/15/2018 Inactive Claritin-D 24 Hour 10 mg-240 mg tablet,extended release RxNorm: 3919771 Tablet(s) TAKE ONE TABLET BY MOUTH DAILY 01/08/2018 04/07/2018 Inactive enalapril 5 mg-hydrochlorothiazide 12.5 mg tablet RxNorm: 778711 TAKE ONE TABLET BY MOUTH DAILY 12/29/2017 05/27/2018 Inactive hydrocodone 10 mg-acetaminophen 325 mg tablet RxNorm: 185947 1 Tablet(s) PO QID as needed tooth abscess pain or back pain 12/21/2017 01/17/2018 Inactive Cymbalta 60 mg capsule,delayed release RxNorm: 272813 TAKE ONE CAPSULE BY MOUTH DAILY 12/15/2017 02/11/2018 Inactive hydrocodone 10 mg-acetaminophen 325 mg tablet RxNorm: 008505 1 Tablet(s) PO QID as needed tooth abscess pain or back pain 11/22/2017 11/21/2017 Inactive hydrocodone 10 mg-acetaminophen 325 mg tablet RxNorm: 847223 1 Tablet(s) PO QID as needed tooth abscess pain or back pain 11/22/2017 12/20/2017 Inactive Movantik 25 mg tablet RxNorm: 4666901 1 Tablet(s) PO QAM 201712/07/2017 Inactive hydrocodone 10 mg-acetaminophen 325 mg tablet RxNorm: 066886 1 Tablet(s) PO QID as needed tooth abscess pain or back pain 10/20/2017 11/18/2017 Inactive Effexor 75 mg tablet RxNorm: 966623 TAKE ONE TABLET BY MOUTH DAILY 10/10/2017 03/08/2018 Inactive diclofenac sodium 75 mg tablet,delayed release RxNorm: 911696 TAKE ONE TABLET BY MOUTH TWICE A DAY 10/02/2017 01/25/2018 Inactive hydrocodone 10 mg-acetaminophen 325 mg tablet RxNorm: 535229 1 Tablet(s) PO QID as needed tooth abscess pain or back pain 09/27/2017 10/26/2017 Inactive simvastatin 40 mg tablet RxNorm: 037230 TAKE ONE TABLET BY MOUTH EVERY NIGHT AT BEDTIME 09/13/2017 02/09/2018 Inactive Cymbalta 60 mg capsule,delayed release RxNorm: 919396 TAKE ONE CAPSULE BY MOUTH DAILY 09/13/2017 12/11/2017 Inactive Claritin-D 24 Hour 10 mg-240 mg tablet,extended release RxNorm: 6707717 Tablet(s) TAKE ONE TABLET BY MOUTH DAILY 08/28/2017 11/25/2017 Inactive Claritin-D 24 Hour 10 mg-240 mg tablet,extended release RxNorm: 1468154 TAKE ONE TABLET BY MOUTH DAILY 08/28/20172017 Inactive hydrocodone 10 mg-acetaminophen 325 mg tablet RxNorm: 551470 1 Tablet(s) PO QID as needed tooth abscess pain or back pain 08/25/2017 09/23/2017 Inactive Valium 5 mg tablet RxNorm: 728087 Tablet(s) TAKE ONE TABLET BY MOUTH EVERY NIGHT AT BEDTIME 08/07/2017 11/02/2017 Inactive Metanx (algal oil) 3 mg-35 mg-2 mg-90.314 mg capsule RxNorm: TAKE ONE CAPSULE BY MOUTH TWO TIMES DAILY 08/02/20172017 Inactive hydrocodone 10 mg-acetaminophen 325 mg tablet RxNorm: 482735 1 Tablet(s) PO QID as needed tooth abscess pain or back pain 07/27/2017 08/24/2017 Inactive enalapril 5 mg-hydrochlorothiazide 12.5 mg tablet RxNorm: 764335 TAKE ONE TABLET BY MOUTH DAILY 07/03/2017 12/28/2017 Inactive hydrocodone 10 mg-acetaminophen 325 mg tablet RxNorm: 533409 1 Tablet(s) PO QID as needed tooth abscess pain or back pain 06/23/2017 07/22/2017 Inactive hydrocodone 10 mg-acetaminophen 325 mg tablet RxNorm: 137476 1 Tablet(s) PO QID as needed tooth abscess pain or back pain 05/31/2017 06/22/2017 Inactive diclofenac sodium 75 mg tablet,delayed release RxNorm: 457552 TAKE ONE TABLET BY MOUTH TWICE A DAY 05/29/2017 09/25/2017 Inactive Valium 5 mg tablet RxNorm: 432491 Tablet(s) TAKE ONE TABLET BY MOUTH EVERY NIGHT AT BEDTIME 05/16/2017 04/17/2018 Inactive Cymbalta 60 mg capsule,delayed release RxNorm: 018420 TAKE ONE CAPSULE BY MOUTH DAILY 05/15/2017 09/11/2017 Inactive hydrocodone 10 mg-acetaminophen 325 mg tablet RxNorm: 521729 1 Tablet(s) PO QID as needed tooth abscess pain or back pain 2017 05/30/2017 Inactive Claritin-D 24 Hour 10 mg-240 mg tablet,extended release RxNorm: 5893887 Tablet(s) TAKE ONE TABLET BY MOUTH DAILY 04/19/2017 07/17/2017 Inactive hydrocodone 5 mg-acetaminophen 325 mg tablet RxNorm: 479888 1-2 Tablet(s) PO Q6 as needed 04/18/2017 05/02/2017 Inactive Effexor 75 mg tablet RxNorm: 690502 TAKE ONE TABLET BY MOUTH DAILY 04/13/2017 10/09/2017 Inactive Keflex 500 mg capsule RxNorm: 611031 1 Capsule(s) PO TID 201603/26/2017 Inactive clindamycin 300 mg capsule RxNorm: 586469 1 Capsule(s) PO TID 03/20/2017 03/26/2017 Inactive ceftriaxone 500 mg solution for injection RxNorm: 5715270 1 Gram(s) Inj 03/16/2017 03/16/2017 Inactive clindamycin 300 mg capsule RxNorm: 053389 1 Capsule(s) PO TID 03/16/2017 03/19/2017 Inactive hydrocodone 5 mg-acetaminophen 325 mg tablet RxNorm: 493346 1-2 Tablet(s) PO Q6 as needed 03/16/2017 03/16/2017 Inactive Keflex 500 mg capsule RxNorm: 965623 1 Capsule(s) PO TID 201603/19/2017 Inactive hydrocodone 10 mg-acetaminophen 325 mg tablet RxNorm: 077568 1 Tablet(s) PO QID as needed tooth abscess pain or back pain 03/16/2017 04/14/2017 Inactive simvastatin 40 mg tablet RxNorm: 613819 TAKE ONE TABLET BY MOUTH EVERY NIGHT AT BEDTIME 03/13/2017 09/08/2017 Inactive clindamycin 300 mg capsule RxNorm: 307799 1 Capsule(s) PO TID 03/10/2017 03/15/2017 Inactive hydrocodone 5 mg-acetaminophen 325 mg tablet RxNorm: 517482 1-2 Tablet(s) PO Q6 as needed 03/03/2017 03/15/2017 Inactive hydrocodone 5 mg-acetaminophen 325 mg tablet RxNorm: 029863 1 to 2 Tablet(s) PO Q6 as needed 02/15/2017 02/25/2017 Inactive hydrocodone 5 mg-acetaminophen 325 mg tablet RxNorm: 276902 1 to 2 Tablet(s) PO Q6 as needed 02/02/2017 02/12/2017 Inactive enalapril 5 mg-hydrochlorothiazide 12.5 mg tablet RxNorm: 963286 TAKE ONE TABLET BY MOUTH DAILY 01/23/2017 06/21/2017 Inactive diclofenac sodium 75 mg tablet,delayed release RxNorm: 492833 TAKE ONE TABLET BY MOUTH TWICE A DAY 01/23/2017 05/22/2017 Inactive hydrocodone 5 mg-acetaminophen 325 mg tablet RxNorm: 110609 1 to 2 Tablet(s) PO Q6 as needed 01/12/2017 01/22/2017 Inactive hydrocodone 5 mg-acetaminophen 325 mg tablet RxNorm: 426260 1 to 2 Tablet(s) PO Q6 as needed 12/29/2016 01/08/2017 Inactive hydrocodone 5 mg-acetaminophen 325 mg tablet RxNorm: 075485 1 to 2 Tablet(s) PO Q6 as needed 12/16/2016 12/26/2016 Inactive Cymbalta 60 mg capsule,delayed release RxNorm: 797291 TAKE ONE CAPSULE BY MOUTH DAILY 12/14/2016 05/12/2017 Inactive hydrocodone 5 mg-acetaminophen 325 mg tablet RxNorm: 400266 1 to 2 Tablet(s) PO Q6 as needed 11/30/2016 12/10/2016 Inactive Voltaren 1 % topical gel RxNorm: 756084 2 Gram(s) TOP QID bilateral SI joints 11/16/2016 01/14/2017 Inactive diclofenac sodium 75 mg tablet,delayed release RxNorm: 710774 TAKE ONE TABLET BY MOUTH TWICE A DAY 10/31/2016 01/22/2017 Inactive hydrocodone 5 mg-acetaminophen 325 mg tablet RxNorm: 728766 1 to 2 Tablet(s) PO Q6 as needed 10/27/2016 11/06/2016 Inactive hydrocodone 5 mg-acetaminophen 325 mg tablet RxNorm: 491528 1 to 2 Tablet(s) PO Q6 as needed 10/05/2016 10/15/2016 Inactive Effexor 75 mg tablet RxNorm: 271438 TAKE ONE TABLET BY MOUTH DAILY 10/03/2016 03/31/2017 Inactive Claritin-D 24 Hour 10 mg-240 mg tablet,extended release RxNorm: 3380928 Tablet(s) TAKE ONE TABLET BY MOUTH DAILY 09/26/2016 12/24/2016 Inactive hydrocodone 5 mg-acetaminophen 325 mg tablet RxNorm: 134713 1 to 2 Tablet(s) PO Q6 as needed 09/09/2016 09/19/2016 Inactive hydrocodone 5 mg-acetaminophen 325 mg tablet RxNorm: 662591 1 to 2 Tablet(s) PO Q6 as needed 08/19/2016 08/29/2016 Inactive hydrocodone 5 mg-acetaminophen 325 mg tablet RxNorm: 545208 1 to 2 Tablet(s) PO Q6 as needed 08/01/2016 08/11/2016 Inactive enalapril 5 mg-hydrochlorothiazide 12.5 mg tablet RxNorm: 511585 Tablet(s) TAKE ONE TABLET BY MOUTH DAILY 07/18/201601/13 Inactive Movantik 25 mg tablet RxNorm: 6709063 1 Tablet(s) PO QAM 201611/07/2017 Inactive hydrocodone 5 mg-acetaminophen 325 mg tablet RxNorm: 565721 1 to 2 Tablet(s) PO Q6 as needed 07/15/2016 07/25/2016 Inactive diclofenac sodium 75 mg tablet,delayed release RxNorm: 428178 TAKE ONE TABLET BY MOUTH TWICE A DAY 06/27/2016 10/24/2016 Inactive hydrocodone 5 mg-acetaminophen 325 mg tablet RxNorm: 784457 1 to 2 Tablet(s) PO Q6 as needed 06/16/2016 06/26/2016 Inactive Claritin-D 24 Hour 10 mg-240 mg tablet,extended release RxNorm: 3491393 Tablet(s) TAKE ONE TABLET BY MOUTH DAILY 06/10/2016 08/08/2016 Inactive Metanx (algal oil) 3 mg-35 mg-2 mg-90.314 mg capsule RxNorm: Capsule(s) TAKE ONE CAPSULE BY MOUTH TWO TIMES DAILY 06/02/2016 05/27/2017 Inactive hydrocodone 5 mg-acetaminophen 325 mg tablet RxNorm: 054335 1 to 2 Tablet(s) PO Q6 as needed 05/27/2016 06/06/2016 Inactive Valium 5 mg tablet RxNorm: 583422 Tablet(s) TAKE ONE TABLET BY MOUTH EVERY NIGHT AT BEDTIME 05/16/2016 07/14/2016 Inactive Metanx (algal oil) 3 mg-35 mg-2 mg-90.314 mg capsule RxNorm: TAKE ONE CAPSULE BY MOUTH TWO TIMES DAILY 05/11/20162015 Inactive hydrocodone 5 mg-acetaminophen 325 mg tablet RxNorm: 821362 1 to 2 Tablet(s) PO Q6 as needed 04/25/2016 05/02/2016 Inactive [SAVINGS FOR NON-COVERED DRUGS -- BIN: 769545, PCN: ASPROD1, Group: XXXXX, ID# [id number], Questions: . THIS IS NOT INSURANCE.] hydrocodone 5 mg-acetaminophen 325 mg tablet RxNorm: 567288 1 to 2 Tablet(s) PO Q6 as needed 04/01/2016 04/08/2016 Inactive [SAVINGS FOR NON-COVERED DRUGS -- BIN: 618157, PCN: ASPROD1, Group: XXXXX, ID# [id number], Questions: . THIS IS NOT INSURANCE.] diclofenac sodium 75 mg tablet,delayed release RxNorm: 248168 TAKE ONE TABLET BY MOUTH TWICE A DAY 03/21/2016 06/18/2016 Inactive enalapril 5 mg-hydrochlorothiazide 12.5 mg tablet RxNorm: 055707 TAKE ONE TABLET BY MOUTH DAILY 03/21/2016 07/17/2016 Inactive Claritin-D 24 Hour 10 mg-240 mg tablet,extended release RxNorm: 6815411 Tablet(s) TAKE ONE TABLET BY MOUTH DAILY 03/11/2016 06/08/2016 Inactive hydrocodone 5 mg-acetaminophen 325 mg tablet RxNorm: 554674 1 to 2 Tablet(s) PO Q6 as needed 03/08/2016 03/15/2016 Inactive [SAVINGS FOR NON-COVERED DRUGS -- BIN: [id number], PCN: ASPROD1, Group: XXXXX, ID# [id number], Questions: . THIS IS NOT INSURANCE.] simvastatin 40 mg tablet RxNorm: 226617 1 Tablet(s) PO QHS 10/03/2016 Inactive Effexor 75 mg tablet RxNorm: 852480 Tablet(s) TAKE ONE TABLET BY MOUTH DAILY 03/08/2016 10/02/2016 Inactive simvastatin 40 mg tablet RxNorm: 013910 TAKE ONE TABLET BY MOUTH EVERY NIGHT AT BEDTIME 02/05/2016 05/04/2016 Inactive Request already responded to by other means (e.g. phone or fax) hydrocodone 5 mg-acetaminophen 325 mg tablet RxNorm: 468314 1 to 2 Tablet(s) PO Q6 as needed 02/02/2016 02/09/2016 Inactive [SAVINGS FOR NON-COVERED DRUGS -- BIN: 212502, PCN: ASPROD1, Group: XXXXX, ID# [id number], Questions: . THIS IS NOT INSURANCE.] simvastatin 40 mg tablet RxNorm: 918565 1 Tablet(s) PO QHS 03/07/2016 Inactive Cymbalta 60 mg capsule,delayed release RxNorm: 655922 TAKE ONE CAPSULE BY MOUTH DAILY 01/14/2016 06/11/2016 Inactive Request already responded to by other means ( e.g. phone or fax) Claritin-D 24 Hour 10 mg-240 mg tablet,extended release RxNorm: 7840549 Tablet(s) TAKE ONE TABLET BY MOUTH DAILY 01/14/2016 02/12/2016 Inactive hydrocodone 5 mg-acetaminophen 325 mg tablet RxNorm: 232467 1 to 2 Tablet(s) PO Q6 as needed 01/14/2016 01/21/2016 Inactive [SAVINGS FOR NON-COVERED DRUGS -- BIN: 323040, PCN: ASPROD1, Group: XXXXX, ID# [id number], Questions: . THIS IS NOT INSURANCE.] Claritin-D 24 Hour 10 mg-240 mg tablet,extended release RxNorm: 6986284 TAKE ONE TABLET BY MOUTH DAILY 01/14/20162015 Inactive Cymbalta 60 mg capsule,delayed release RxNorm: 888264 Capsule(s) TAKE ONE CAPSULE BY MOUTH DAILY 01/12/2016 01/13/2016 Inactive Claritin-D 24 Hour 10 mg-240 mg tablet,extended release RxNorm: 2873866 TAKE ONE TABLET BY MOUTH DAILY 01/11/20162015 Inactive Claritin-D 24 Hour 10 mg-240 mg tablet,extended release RxNorm: 3312151 TAKE ONE TABLET BY MOUTH DAILY 01/11/20162015 Inactive Claritin-D 24 Hour 10 mg-240 mg tablet,extended release RxNorm: 4363639 TAKE ONE TABLET BY MOUTH DAILY 01/07/20162015 Inactive Effexor 75 mg tablet RxNorm: 994440 TAKE ONE TABLET BY MOUTH DAILY 01/01/2016 02/29/2016 Inactive diclofenac sodium 75 mg tablet,delayed release RxNorm: 174965 TAKE ONE TABLET BY MOUTH TWICE A DAY 12/23/2015 03/20/2016 Inactive enalapril 5 mg-hydrochlorothiazide 12.5 mg tablet RxNorm: 115868 TAKE ONE TABLET BY MOUTH DAILY 12/23/2015 03/20/2016 Inactive hydrocodone 5 mg-acetaminophen 325 mg tablet RxNorm: 056739 1 to 2 Tablet(s) PO Q6 as needed 12/22/2015 12/29/2015 Inactive [SAVINGS FOR NON-COVERED DRUGS -- BIN: 282316, PCN: ASPROD1, Group: XXXXX, ID# [id number], Questions: . THIS IS NOT INSURANCE.] Valium 5 mg tablet RxNorm: 152297 Tablet(s) TAKE ONE TABLET BY MOUTH EVERY NIGHT AT BEDTIME 12/01/2015 04/17/2018 Inactive hydrocodone 5 mg-acetaminophen 325 mg tablet RxNorm: 403767 1 to 2 Tablet(s) PO Q6 as needed 11/30/2015 12/07/2015 Inactive [SAVINGS FOR NON-COVERED DRUGS -- BIN: 767773, PCN: ASPROD1, Group: XXXXX, ID# [id number], Questions: . THIS IS NOT INSURANCE.] hydrocodone 5 mg-acetaminophen 325 mg tablet RxNorm: 568282 1 to 2 Tablet(s) PO Q6 as needed 11/09/2015 11/16/2015 Inactive [SAVINGS FOR NON-COVERED DRUGS -- BIN: 869866, PCN: ASPROD1, Group: XXXXX, ID# [id number], Questions: . THIS IS NOT INSURANCE.] Claritin-D 24 Hour 10 mg-240 mg tablet,extended release RxNorm: 6238792 Tablet(s) TAKE ONE TABLET BY MOUTH DAILY 11/05/2015 11/04/2015 Inactive Claritin-D 24 Hour 10 mg-240 mg tablet,extended release RxNorm: 8544648 Tablet(s) TAKE ONE TABLET BY MOUTH DAILY 11/05/2015 01/06/2016 Inactive Claritin-D 24 Hour 10 mg-240 mg tablet,extended release RxNorm: 8833003 Tablet(s) TAKE ONE TABLET BY MOUTH DAILY 10/30/2015 03/10/2016 Inactive hydrocodone 5 mg-acetaminophen 325 mg tablet RxNorm: 487283 1 to 2 Tablet(s) PO Q6 as needed 10/09/2015 10/16/2015 Inactive [SAVINGS FOR NON-COVERED DRUGS -- BIN: 104754, PCN: ASPROD1, Group: XXXXX, ID# [id number], Questions: . THIS IS NOT INSURANCE.] Effexor 75 mg tablet RxNorm: 469888 TAKE ONE TABLET BY MOUTH DAILY 10/05/2015 12/31/2015 Inactive simvastatin 40 mg tablet RxNorm: 199286 1 Tablet(s) PO QHS 01/31/2016 Inactive hydrocodone 5 mg-acetaminophen 325 mg tablet RxNorm: 594716 1 to 2 Tablet(s) PO Q6 as needed 09/15/2015 09/22/2015 Inactive [SAVINGS FOR NON-COVERED DRUGS -- BIN: 943635, PCN: ASPROD1, Group: XXXXX, ID# [id number], Questions: . THIS IS NOT INSURANCE.] Valium 5 mg tablet RxNorm: 728028 Tablet(s) TAKE ONE TABLET BY MOUTH EVERY NIGHT AT BEDTIME 09/08/2015 04/17/2018 Inactive enalapril 5 mg-hydrochlorothiazide 12.5 mg tablet RxNorm: 016162 Tablet(s) TAKE ONE TABLET BY MOUTH DAILY 08/21/201512/17 Inactive diclofenac sodium 75 mg tablet,delayed release RxNorm: 008791 1 Tablet(s) PO BID 08/21/2015 12/18/2015 Inactive hydrocodone 5 mg-acetaminophen 325 mg tablet RxNorm: 958193 1 to 2 Tablet(s) PO Q6 as needed 08/13/2015 08/20/2015 Inactive [SAVINGS FOR NON-COVERED DRUGS -- BIN: 965122, PCN: ASPROD1, Group: XXXXX, ID# [id number], Questions: . THIS IS NOT INSURANCE.] clindamycin 300 mg capsule RxNorm: 670046 1 Capsule(s) PO TID 08/06/2015 08/10/2015 Inactive Claritin-D 24 Hour 10 mg-240 mg tablet,extended release RxNorm: 0699188 Tablet(s) TAKE ONE TABLET BY MOUTH DAILY 07/23/2015 10/20/2015 Inactive hydrocodone 5 mg-acetaminophen 325 mg tablet RxNorm: 095114 1 to 2 Tablet(s) PO Q6 as needed 07/23/2015 07/30/2015 Inactive [SAVINGS FOR NON-COVERED DRUGS -- BIN: 340178, PCN: ASPROD1, Group: XXXXX, ID# [id number], Questions: . THIS IS NOT INSURANCE.] Claritin-D 24 Hour 10 mg-240 mg tablet,extended release RxNorm: 9051820 TAKE ONE TABLET BY MOUTH DAILY 07/22/20152015 Inactive Valium 5 mg tablet RxNorm: 559217 Tablet(s) TAKE ONE TABLET BY MOUTH EVERY NIGHT AT BEDTIME 07/22/2015 04/17/2018 Inactive Claritin-D 24 Hour 10 mg-240 mg tablet,extended release RxNorm: 0947513 TAKE ONE TABLET BY MOUTH DAILY 07/20/20152015 Inactive Cymbalta 60 mg capsule,delayed release RxNorm: 612108 TAKE ONE CAPSULE BY MOUTH DAILY 07/20/2015 01/11/2016 Inactive cyclobenzaprine 10 mg tablet RxNorm: 261615 TAKE ONE TABLET BY MOUTH AT BEDTIME NEEDED 07/06/2015 08/04/2015 Inactive hydrocodone 5 mg-acetaminophen 325 mg tablet RxNorm: 722401 1 to 2 Tablet(s) PO Q6 as needed 06/23/2015 06/30/2015 Inactive [SAVINGS FOR NON-COVERED DRUGS -- BIN: 241008, PCN: ASPROD1, Group: XXXXX, ID# [id number], Questions: . THIS IS NOT INSURANCE.] Effexor 75 mg tablet RxNorm: 454919 1 Tablet(s) PO daily 201409/28/2015 Inactive hydrocodone 5 mg-acetaminophen 325 mg tablet RxNorm: 818420 1 to 2 Tablet(s) PO Q6 as needed 05/22/2015 05/29/2015 Inactive [SAVINGS FOR NON-COVERED DRUGS -- BIN: 218300, PCN: ASPROD1, Group: XXXXX, ID# [id number], Questions: . THIS IS NOT INSURANCE.] Valium 5 mg tablet RxNorm: 003679 Tablet(s) TAKE ONE TABLET BY MOUTH EVERY NIGHT AT BEDTIME 05/22/2015 04/17/2018 Inactive diclofenac sodium 75 mg tablet,delayed release RxNorm: 565644 1 Tablet(s) PO BID 05/04/2015 08/20/2015 Inactive Metanx (algal oil) 3 mg-35 mg-2 mg-90.314 mg capsule RxNorm: 1 Capsule(s) PO BID 05/04/2015 04/27/2016 Inactive enalapril 5 mg-hydrochlorothiazide 12.5 mg tablet RxNorm: 588472 TAKE ONE TABLET BY MOUTH DAILY 04/27/2015 08/20/2015 Inactive hydrocodone 5 mg-acetaminophen 325 mg tablet RxNorm: 522751 1 to 2 Tablet(s) PO Q6 as needed 04/27/2015 05/04/2015 Inactive [SAVINGS FOR NON-COVERED DRUGS -- BIN: 405166, PCN: ASPROD1, Group: XXXXX, ID# [id number], Questions: . THIS IS NOT INSURANCE.] hydrocodone 5 mg-acetaminophen 325 mg tablet RxNorm: 245625 1 to 2 Tablet(s) PO Q6 as needed 03/26/2015 04/02/2015 Inactive [SAVINGS FOR NON-COVERED DRUGS -- BIN: 644611, PCN: ASPROD1, Group: XXXXX, ID# [id number], Questions: . THIS IS NOT INSURANCE.] Claritin-D 24 Hour 10 mg-240 mg tablet,extended release RxNorm: 0925961 Tablet(s) TAKE ONE TABLET BY MOUTH DAILY 03/24/2015 07/19/2015 Inactive Valium 5 mg tablet RxNorm: 938811 TAKE ONE TABLET BY MOUTH EVERY NIGHT AT BEDTIME 03/05/2015 04/03/2015 Inactive Valium 5 mg tablet RxNorm: 335183 1 Tablet(s) PO daily as needed 03/05/2015 03/05/2015 Inactive [SAVINGS FOR NON-COVERED DRUGS -- BIN:542085, PCN: ASPROD1, Group : XXXXX, ID# [id number], Questions: . THIS IS NOT INSURANCE.] hydrocodone 5 mg-acetaminophen 325 mg tablet RxNorm: 774657 1 to 2 Tablet(s) PO Q6 as needed 02/18/2015 02/25/2015 Inactive [SAVINGS FOR NON-COVERED DRUGS -- BIN: 620769, PCN: ASPROD1, Group: XXXXX, ID# [id number], Questions: . THIS IS NOT INSURANCE.] enalapril 5 mg-hydrochlorothiazide 12.5 mg tablet RxNorm: 368403 1 Tablet(s) PO daily 01/30/2015 04/26/2015 Inactive hydrocodone 5 mg-acetaminophen 325 mg tablet RxNorm: 766814 1 to 2 Tablet(s) PO Q6 as needed 01/22/2015 01/29/2015 Inactive [SAVINGS FOR NON-COVERED DRUGS -- BIN: 459218, PCN: ASPROD1, Group: XXXXX, ID# [id number], Questions: . THIS IS NOT INSURANCE.] Claritin-D 24 Hour 10 mg-240 mg tablet,extended release RxNorm: 5119424 TAKE ONE TABLET BY MOUTH DAILY 01/15/20152014 Inactive Claritin-D 24 Hour 10 mg-240 mg tablet,extended release RxNorm: 5442376 Tablet(s) TAKE ONE TABLET BY MOUTH DAILY 01/15/2015 01/14/2015 Inactive cyclobenzaprine 10 mg tablet RxNorm: 578447 1 Tablet(s) PO QHS as needed 12/29/2014 01/27/2015 Inactive hydrocodone 5 mg-acetaminophen 325 mg tablet RxNorm: 193103 1 to 2 Tablet(s) PO Q6 as needed 12/23/2014 12/30/2014 Inactive [SAVINGS FOR NON-COVERED DRUGS -- BIN: 672233, PCN: ASPROD1, Group: XXXXX, ID# [id number], Questions: . THIS IS NOT INSURANCE.] Cymbalta 60 mg capsule,delayed release RxNorm: 386759 1 Capsule(s) PO daily 12/18/2014 07/15/2015 Inactive Claritin-D 24 Hour 10 mg-240 mg tablet,extended release RxNorm: 9877329 TAKE ONE TABLET BY MOUTH DAILY 12/15/20142014 Inactive Claritin-D 24 Hour 10 mg-240 mg tablet,extended release RxNorm: 9464742 TAKE ONE TABLET BY MOUTH DAILY 12/15/20142014 Inactive Claritin-D 24 Hour 10 mg-240 mg tablet,extended release RxNorm: 4146931 TAKE ONE TABLET BY MOUTH DAILY 12/15/20142014 Inactive Claritin-D 24 Hour 10 mg-240 mg tablet,extended release RxNorm: 8269287 1 Tablet(s ) PO daily 12/10/2014 12/14/2014 Inactive hydrocodone 5 mg-acetaminophen 325 mg tablet RxNorm: 132788 1 to 2 Tablet(s) PO Q6 as needed 12/08/2014 12/22/2014 Inactive [SAVINGS FOR NON-COVERED DRUGS -- BIN: 866305, PCN: ASPROD1, Group: XXXXX, ID# [id number], Questions: . THIS IS NOT INSURANCE.] hydrocodone 5 mg-acetaminophen 325 mg tablet RxNorm: 566687 1 to 2 Tablet(s) PO Q6 as needed 11/25/2014 12/07/2014 Inactive [SAVINGS FOR NON-COVERED DRUGS -- BIN: 721804, PCN: ASPROD1, Group: XXXXX, ID# [id number], Questions: . THIS IS NOT INSURANCE.] Claritin-D 24 Hour 10 mg-240 mg tablet,extended release RxNorm: 6553683 1 Tablet(s ) PO daily 11/07/2014 12/06/2014 Inactive Claritin-D 24 Hour 10 mg-240 mg tablet,extended release RxNorm: 8146010 1 Tablet(s ) PO daily 11/07/2014 11/06/2014 Inactive hydrocodone 5 mg-acetaminophen 325 mg tablet RxNorm: 070625 1 to 2 Tablet(s) PO Q6 as needed 11/03/2014 11/24/2014 Inactive [SAVINGS FOR NON-COVERED DRUGS -- BIN: 728535, PCN: ASPROD1, Group: XXXXX, ID# [id number], Questions: . THIS IS NOT INSURANCE.] Valium 5 mg tablet RxNorm: 240986 1 Tablet(s) PO daily as needed 10/23/2014 12/20/2014 Inactive [SAVINGS FOR NON-COVERED DRUGS -- BIN:[id number], PCN: [id number], Group : XXXXX, ID# [id number], Questions: . THIS IS NOT INSURANCE.] Cialis 5 mg tablet RxNorm: 919029 1/2 Tablet(s) PO daily No Stop Date Active [SAVINGS FOR NON-COVERED DRUGS -- BIN:[id number], PCN: ASPROD1, Group: XXXXX, ID# [id number], Questions: . THIS IS NOT INSURANCE.] aspirin 81 mg tablet RxNorm: 768883 1 Tablet(s) PO daily No Start Date Active Effexor 75 mg tablet RxNorm: 930141 1 Tablet(s) PO daily No Start Date 05/31/2015 Inactive Valium 5 mg tablet RxNorm: 505633 1 Tablet(s) PO daily as needed No Start Date 10/22/2014 Inactive simvastatin 40 mg tablet RxNorm: 196804 1 Tablet(s) PO QHS No Start Date 10/04/2015 Inactive enalapril 5 mg-hydrochlorothiazide 12.5 mg tablet RxNorm: 061676 oral No Start Date 01/29/2015 Inactive cyclobenzaprine 10 mg tablet RxNorm: 758628 1 Tablet(s) PO as needed No Start Date 12/28/2014 Inactive Cymbalta 60 mg capsule,delayed release RxNorm: 448838 1 Capsule(s) PO daily No Start Date 12/17/2014 Inactive hydrocodone 5 mg-acetaminophen 325 mg tablet RxNorm: 143474 1 to 2 Tablet(s) PO Q6 as needed No Start Date 11/02/2014 Inactive diclofenac sodium 75 mg tablet,delayed release RxNorm: 415570 1 Tablet(s) PO BID No Start Date 2015 Inactive Cialis 5 mg tablet RxNorm: 031644 1 Tablet(s) PO daily No Start Date 10/12/2014 Inactive Medication Administered Medication Codes Instructions Start Date Status ceftriaxone 500 mg solution for injection RxNorm: 8315078 1Gram 03/16/2017 No longer Active Immunizations No Immunization data Assessments Condition Codes Effective Dates Essential (primary) hypertension ICD-10: I10 ICD-9: 401.9 [...] of mouth ICD-10: K12.2 ICD-9: 528.3 03/20/2017 Impaired fasting glucose ICD-10: R73.01 ICD-9: 790.21 07/15/2016 Drug induced constipation ICD-10: K59.03 ICD-9: 564.09 [...] Ord30 C/HDL 3.2 Ratio 05/28/2018 Comp Metabolic Qry641 NA 140 mEq/L 05/28/2018 Comp Metabolic Dlp825 K 4.7 mEq/L 05/28/2018 Comp Metabolic Dot039 CL 101 mEq/L 05/28/2018 Comp Metabolic Ztv082 CO2 30.0 mEq/L 05/28/2018 Comp Metabolic Kdb804 ANION GAP 14 05/28/2018 Comp Metabolic Cqq958 GLUCOSE 103 mg/dL 05/28/2018 Comp Metabolic Xhl597 Creat 1.0 mg/dL 05/28/2018 Comp Metabolic Dxb079 eGFR 83 ml/min/1.73m2 05/28/2018 Comp Metabolic Gcd925 BUN 23 mg/dL 05/28/2018 Comp Metabolic Cqx221 B/C Ratio 23.5 Ratio 05/28/2018 Comp Metabolic Urj289 CALCIUM 9.5 mg/dL 05/28/2018 Comp Metabolic Jkb544 ALK PHOS 46 U/L 05/28/2018 Comp Metabolic Rqd168 AST(SGOT) 24 U/L 05/28/2018 Comp Metabolic Tss745 ALT(SGPT) 51 U/L 05/28/2018 Comp Metabolic Dcz842 BILI T 0.7 mg/dL 05/28/2018 Comp Metabolic Kuc103 ALBUMIN 4.6 g/dL 05/28/2018 Comp Metabolic Bxk865 TPRO 6.7 g/dL 05/28/2018 Comp Metabolic Lyp890 GLOB 2.2 g/dL 05/28/2018 Comp Metabolic Ifz081 A/G Ratio 2.1 Ratio 05/28/2018 Comp Metabolic Wgo836 Osmo 283 mOsmo 05/28/2018 Tsh Ord6 TSH [...] 30.7 pg 05/28/2018 Cbc With Differential Ord2 Ford% 11.2 % 05/28/2018 Cbc With Differential Ord2 [...] 0.88 K/ul 05/28/2018 Cbc With Differential Ord2 Ford ABS# 0.7 K/ul 05/28/2018 Cbc With Differential Ord2 Eos ABS# 0.2 K/ul 05/28/2018 Cbc With Differential Ord2 Baso ABS# 0.0 K/ul 05/28/2018 Hepatitis C Antibody With Reflex For Hcv Antibody Verificat 956736 HEPATITIS C ANTIBODY NEGATIVE 07/19/2016 Lipid Ord30 CHOL 180 mg/dL 07/18/2016 Lipid Ord30 HDL 56.0 mg/dl 07/18/2016 Lipid Ord30 TRIG 153 mg/dL 07/18/2016 Lipid Ord30 LDL 93 mg/dL 07/18/2016 Lipid Ord30 C/HDL 3.2 Ratio 07/18/2016 Comp Metabolic Ari987 NA 136 mEq/L 07/18/2016 Comp Metabolic Wnw775 K 4.3 mEq/L 07/18/2016 Comp Metabolic Yqb384 CL 100 mEq/L 07/18/2016 Comp Metabolic Drh648 CO2 30.0 mEq/L 07/18/2016 Comp Metabolic Cga387 ANION GAP 10 07/18/2016 Comp Metabolic Sbc729 GLUCOSE 104 mg/dL 07/18/2016 Comp Metabolic Llk157 Creat 1.0 mg/dL 07/18/2016 Comp Metabolic Dhx119 eGFR 81 ml/min/1.73m2 07/18/2016 Comp Metabolic Esq028 BUN 21 mg/dL 07/18/2016 Comp Metabolic Kzb584 B/C Ratio 20.8 Ratio 07/18/2016 Comp Metabolic Gwu508 CALCIUM 9.5 mg/dL 07/18/2016 Comp Metabolic Hld737 ALK PHOS 45 U/L 07/18/2016 Comp Metabolic Xgk965 AST(SGOT) 26 U/L 07/18/2016 Comp Metabolic Rxf636 ALT(SGPT) 52 U/L 07/18/2016 Comp Metabolic Xpf250 BILI T 0.8 mg/dL 07/18/2016 Comp Metabolic Suc023 ALBUMIN 4.7 g/dL 07/18/2016 Comp Metabolic Bda192 TPRO 6.9 g/dL 07/18/2016 Comp Metabolic Glc128 GLOB 2.2 g/dL 07/18/2016 Comp Metabolic Hdl163 A/G Ratio 2.2 Ratio 07/18/2016 Comp Metabolic Tmk222 Osmo 275 mOsmo 07/18/2016 Cbc With Differential [...] 31.5 pg 07/18/2016 Cbc With Differential Ord2 Ford% 11.2 % 07/18/2016 Cbc With Differential Ord2 [...] 0.69 K/ul 07/18/2016 Cbc With Differential Ord2 Ford ABS# 0.5 K/ul 07/18/2016 Cbc With Differential Ord2 Eos ABS# 0.2 K/ul 07/18/2016 Cbc With Differential Ord2 Baso ABS# 0.0 K/ul 07/18/2016 Tsh Ord6 hTSH II 1.99 uIU/mL 07/18/2016 Total Psa Ord10 PSA 0.75 ng/mL 07/18/2016 %Hba1C Fzm997 % HbA1c 71945-2 5.8 % 07/18/2016 %Hba1C Sff883 Gluc Ave 120 mg/dL 07/18/2016 Review of [...] Code : 8480-6 BMI: 32.7 Code : 85297-5 Heart Rate 1 : 85 bpm Height: 5'10" SpO2: 99% Weight: 228 lbs 10/20/2017 Blood Pressure 1: 138/78 Code : 8480-6 BMI: 32.4 Code : 26010-3 Heart Rate 1 : 80 bpm Height: 5'10" SpO2: 98% Weight: 226 lbs 03/20/2017 Blood Pressure 1: 134/72 Code : 8480-6 Heart Rate 1: 87 bpm Height: 5'10" SpO2: 97% 03/16/2017 Blood Pressure 1: 150/84 Code : 8480-6 BMI: 32.4 Code : 47752-5 Heart Rate 1 : 98 bpm Height: 5'10" SpO2: 97% Weight: 226 lbs 03/10/2017 Blood Pressure 1: 140/72 Code : 8480-6 BMI: 32.4 Code : 30722-5 Heart Rate 1 : 81 bpm Height: 5'10" SpO2: 97% Weight: 226 lbs 11/16/2016 Blood Pressure 1: 142/80 Code : 8480-6 BMI: 32.1 Code : 05233-9 Heart Rate 1 : 95 bpm Height: 5'10" SpO2: 98% Weight: 224 lbs 07/15/2016 Blood Pressure 1: 130/78 Code : 8480-6 BMI: 32.0 Code : 47974-1 Heart Rate 1 : 85 bpm Height: 5'10" SpO2: 95% Weight: 223 lbs 03/08/2016 Blood Pressure 1: 138/84 Code : 8480-6 BMI: 31.6 Code : 39282-8 Heart Rate 1 : 86 bpm Height: 5'10" SpO2: 98% Weight: 220 lbs 11/26/2015 Blood Pressure 1: 132/82 Code : 8480-6 BMI: 31.6 Code : 65437-5 Height: 5'10 " Weight: 220 lbs 08/06/2015 Blood Pressure 1: 138/74 Code : 8480-6 BMI: 31.0 Code : 12226-6 Heart Rate 1 : 87 bpm Height: 5'10" SpO2: 95% Weight: 216 lbs 05/04/2015 Blood Pressure 1: 128/80 Code : 8480-6 BMI: 33.6 Code : 45883-4 Heart Rate 1 : 94 bpm Height: 5'10" SpO2: 97% Weight: 234 lbs 11/06/2014 Blood Pressure 1: 132/92 Code : 8480-6 BMI: 31.1 Code : 47584-4 Heart Rate 1 : 88 bpm Height: [...] Low back pain[ICD10: M54.5] Julianna Mcfarlane MD, [facility] CPT-4 : 30883 05/24/2018 [id number] EST. PATIENT, LEVEL IV Diagnosis: Bilateral primary osteoarthritis of knee[ICD10: M17.0] Julianna Mcfarlane MD, [facility] CPT-4: 85279 10/20/2017 [id number] EST. PATIENT, LEVEL IV Diagnosis: Periapical abscess without sinus[ICD10: K04.7] Diagnosis: Cellulitis and abscess of mouth[ICD10: K12.2] Julianna Mcfarlane MD, [facility] CPT-4: 70851 03/20/2017 ([id number]) 89381 EST. PATIENT, LEVEL III Diagnosis: Periapical abscess without sinus[ICD10: K04.7] Diagnosis: Cellulitis and abscess of mouth[ICD10: K12.2] Mayte Mcfarlane MD, [facility] CPT-4: 55402 03/16/2017 ([id number]) 07194 EST. PATIENT, LEVEL III Diagnosis: Periapical abscess without sinus[ICD10: K04.7] Niya Mcfarlane MD, [facility] CPT-4: 81816 03/10/2017 ([id number]) 55292 EST. PATIENT, LEVEL IV Diagnosis: Essential (primary) hypertension[ICD10: I10] Diagnosis: Low back pain[ICD10: M54.5] Mayte Mcfarlane MD, [facility] CPT- 4: 45317 11/16/2016 ([id number]) 13595 EST. PATIENT, LEVEL IV Diagnosis: Mixed hyperlipidemia[ICD10: E78.2] Diagnosis: Essential (primary) hypertension[ICD10: I10] Diagnosis: Impaired fasting glucose[ICD10: R73.01] Diagnosis: Encounter for screening for malignant neoplasm of prostate[ICD10: Z12.5] Diagnosis: Encounter for screening for other viral diseases[ICD10: Z11.59] Diagnosis: Drug induced constipation[ICD10: K59.03] Niya Mcfarlane MD, [facility] CPT-4: 45207 07/15/2016 ([id number]) 47330 EST. PATIENT, LEVEL III Diagnosis: Bilateral primary osteoarthritis of knee[ICD10: M17.0] Niya Mcfarlane MD, [facility] CPT-4: 52076 03/08/2016 ([id number]) 56014 EST. PATIENT, LEVEL III Diagnosis: Bilateral primary osteoarthritis of knee[ICD10: M17.0] Niya Mcfarlane MD, [facility] CPT-4: 59450 11/26/2015 71593 EST. PATIENT, LEVEL IV Diagnosis: Cervicalgia[ICD10: M54.2] Diagnosis: Other specified polyneuropathies[ICD10: G62.89] Diagnosis: Dental caries, unspecified[ICD10: K02.9] Diagnosis: Major depressive disorder, single episode, unspecified[ICD10: F32.9] Niya Mcfarlane MD, [facility] CPT-4: 44954 08/06/2015 ([id number]) 19553 EST. PATIENT, LEVEL IV Diagnosis: Mixed hyperlipidemia[ICD10: E78.2] Diagnosis: Idiopathic gout, unspecified ankle and foot[ICD10: M10.079] Diagnosis: Other specified polyneuropathies[ICD10: G62.89] Diagnosis: Morbid (severe) obesity due to excess calories[ICD10: E66.01] [facility] CPT-4: 82399 05/04/2015 ([id number]) OFFICE VISIT, NEW - LEVEL 4 Diagnosis: GOUT[ICD9: 274.9] Diagnosis: Sinusitis, acute[ICD9: 461.9] Diagnosis: HYPERLIPIDEMIA[ICD9: 272.4] [facility] CPT- 4: 11629 11/06/2014 Plan of Care Planned Activity Notes Codes Status Date Patient Education: Patient Medication Summary Completed 05/28/2018 Visit Plan: OA knees - pt has chronic pain - has been maintained on current medications, has not sought out other medications, only uses PRN pain medications as directed, and understands the consequences of over- medication. 05/24/2018 Appointment: Julianna Stanford WPtel: [phone] [facility] [place] (15 min) Moderate 05/24/2018 Patient Education: Patient Medication Summary Completed 05/24/2018 Patient Education: Back Pain Completed 05/24/2018 Appointment: Niya Bryant WPtel: [phone] [phone] [place] (15 min) Moderate 05/21/2018 Visit Plan: OA knees - pt has chronic pain - has been maintained on current medications, has not sought out other medications, only uses PRN pain medications as directed, and understands the consequences of over- medication. 10/20/2017 Appointment: Julianna Stanford WPtel: [facility] [place] (30 min) Complex 10/20/2017 Patient Education: Patient Medication Summary Completed 10/20/2017 [phone] [place] (15 min) Moderate 10/19/2017 Visit Plan: Cellulitis/Abscess - continue with current treatment course - restart keflex as patient had improvement of symptoms on the rocephin. continue with clindamycin and increase probiotic to tid dosing. Keep follow up appointment with Dr. Hendrix on 03/28. Notify clinic with any changes or concerns, or with any questions. 03/20/2017 Appointment: Julianna Stanford WPtel: [phone] [facility] [place] (30 min) Complex 03/20/2017 Patient Education: [...] tid dosing. 03/16/2017 Appointment: Mayte Mcfarlane WPtel: [facility] (15 min) Moderate 03/16/2017 Patient Education: Patient Medication Summary Completed 03/16/2017 Visit Plan: Abscessed tooth-discussed with Dr Mcfarlane- plan for IV abx x 3 days-will start with clindamycin and rocephin today and continue rocephin Monday and Monday-will increase dose of oral clindamycin - rx sent to patient's pharmacy and instructed on use. Patient verbalized understanding of plan. 03/10/2017 Appointment: Niya Bryant WPtel: [phone] [place] [address] (15 min) Moderate 03/10/2017 Patient Education: Patient [...] they worsen. 11/16/2016 Appointment: Mayte Mcfarlane WPtel: [facility] (15 min) Moderate 11/16/2016 Patient Education: [...] a1c 07/15/2016 Appointment: Niya Bryant WPtel: [phone] [phone] (15 min) Moderate [...] over- medication. 03/08/2016 Appointment: Niya Bryant WPtel: [phone] (30 min) Complex [...] plan. 11/26/2015 Appointment: Niya Bryant WPtel: [phone] [phone] (30 min) Complex [...] to medications. 11/06/2014 Appointment: May[facility] Mc[facility]arlane [facility]Ptel[facility] [place] [facility] New Patient 11/06/2014 Patient Education: [...]
--- OUTSIDE RECORDS SUMMARY | 2018-07-11 12:56 | XMS REPORT | CCD ---
Author Author [facility] Organization [facility] Address [address] [place] [address] Phone Care Team Providers Care Sock Boarder Name Role Phone PP Unavailable CCM Unavailable Summary Purpose Interface Exchange Insurance Providers Payer name Policy type / Coverage type Covered green party ID Effective Begin Date Effective End Date Blue Cross Blue [facility] Blue Cross/Blue Shield [id number] Unknown Unknown Family history Father Diagnosis Age At Onset Cancer Unknown Stroke Unknown Heart Attack Unknown Hyperlipidemia Unknown Diabetes mellitus Type 2 Unknown Arthritis Unknown Heart disease Unknown Mother Diagnosis Age At Onset Arthritis Unknown Hypertension Unknown Breast cancer Unknown Sister Diagnosis Age At Onset Multiple sclerosis Unknown Social History Social History Element Codes Description Effective Dates Employment Unknown 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 Number of children Unknown 3 one daughter lives locally, other children live in [facility] 05/04/2015 Marital status Unknown Danielle 11/06/[address]: 299129777 Has never smoked or chewed tobacco 11/06/2014 Alcohol history Unknown occasionally drinks alcohol 11/06/2014 Allergies, Adverse Reactions, Alerts Substance Reaction Codes Entered Date Inactivated Date Status * NO KNOWN FOOD ALLERGIES Unknown 11/06/2014 No Inactive Date Active amoxicillin RxNorm: 723 11/06/2014 No Inactive Date Active AUGMENTIN RxNorm: 525809 11/06/2014 No Inactive Date Active Past Medical [...] hydrocodone 10 mg-acetaminophen 325 mg tablet RxNorm: 837739 1 Tablet(s) PO QID as needed tooth abscess pain or back pain 05/15/2018 06/13/2018 Active Cymbalta 60 mg capsule,delayed release RxNorm: 414469 TAKE ONE CAPSULE BY MOUTH DAILY 05/14/2018 08/11/2018 Active diclofenac sodium 75 mg tablet,delayed release RxNorm: 061050 TAKE ONE TABLET BY MOUTH TWICE A DAY 04/23/2018 09/19/2018 Active Valium 5 mg tablet RxNorm: 633579 Tablet(s) TAKE ONE TABLET BY MOUTH EVERY NIGHT AT BEDTIME 04/18/2018 05/17/2018 Inactive hydrocodone 10 mg-acetaminophen 325 mg tablet RxNorm: 255810 1 Tablet(s) PO QID as needed tooth abscess pain or back pain 04/16/2018 05/14/2018 Inactive hydrocodone 10 mg-acetaminophen 325 mg tablet RxNorm: 500689 1 Tablet(s) PO QID as needed tooth abscess pain or back pain 03/15/2018 04/13/2018 Inactive Effexor 75 mg tablet RxNorm: 818320 TAKE ONE TABLET BY MOUTH DAILY 03/14/2018 08/10/2018 Active hydrocodone 10 mg-acetaminophen 325 mg tablet RxNorm: 857872 1 Tablet(s) PO QID as needed tooth abscess pain or back pain 02/16/2018 03/14/2018 Inactive simvastatin 40 mg tablet RxNorm: 904805 TAKE ONE TABLET BY MOUTH EVERY NIGHT AT BEDTIME 02/12/2018 06/11/2018 Active Cymbalta 60 mg capsule,delayed release RxNorm: 579563 TAKE ONE CAPSULE BY MOUTH DAILY 02/12/2018 05/12/2018 Inactive diclofenac sodium 75 mg tablet,delayed release RxNorm: 304251 TAKE ONE TABLET BY MOUTH TWICE A DAY 01/26/2018 04/22/2018 Inactive hydrocodone 10 mg-acetaminophen 325 mg tablet RxNorm: 320847 1 Tablet(s) PO QID as needed tooth abscess pain or back pain 01/18/2018 02/15/2018 Inactive Claritin-D 24 Hour 10 mg-240 mg tablet,extended release RxNorm: 3011302 Tablet(s) TAKE ONE TABLET BY MOUTH DAILY 01/08/2018 04/07/2018 Inactive enalapril 5 mg-hydrochlorothiazide 12.5 mg tablet RxNorm: 850987 TAKE ONE TABLET BY MOUTH DAILY 12/29/2017 05/27/2018 Inactive hydrocodone 10 mg-acetaminophen 325 mg tablet RxNorm: 856695 1 Tablet(s) PO QID as needed tooth abscess pain or back pain 12/21/2017 01/17/2018 Inactive Cymbalta 60 mg capsule,delayed release RxNorm: 741162 TAKE ONE CAPSULE BY MOUTH DAILY 12/15/2017 02/11/2018 Inactive hydrocodone 10 mg-acetaminophen 325 mg tablet RxNorm: 689355 1 Tablet(s) PO QID as needed tooth abscess pain or back pain 11/22/2017 11/21/2017 Inactive hydrocodone 10 mg-acetaminophen 325 mg tablet RxNorm: 268978 1 Tablet(s) PO QID as needed tooth abscess pain or back pain 11/22/2017 12/20/2017 Inactive Movantik 25 mg tablet RxNorm: 3892032 1 Tablet(s) PO QAM 201712/07/2017 Inactive hydrocodone 10 mg-acetaminophen 325 mg tablet RxNorm: 549444 1 Tablet(s) PO QID as needed tooth abscess pain or back pain 10/20/2017 11/18/2017 Inactive Effexor 75 mg tablet RxNorm: 055062 TAKE ONE TABLET BY MOUTH DAILY 10/10/2017 03/08/2018 Inactive diclofenac sodium 75 mg tablet,delayed release RxNorm: 334589 TAKE ONE TABLET BY MOUTH TWICE A DAY 10/02/2017 01/25/2018 Inactive hydrocodone 10 mg-acetaminophen 325 mg tablet RxNorm: 207810 1 Tablet(s) PO QID as needed tooth abscess pain or back pain 09/27/2017 10/26/2017 Inactive simvastatin 40 mg tablet RxNorm: 320826 TAKE ONE TABLET BY MOUTH EVERY NIGHT AT BEDTIME 09/13/2017 02/09/2018 Inactive Cymbalta 60 mg capsule,delayed release RxNorm: 065170 TAKE ONE CAPSULE BY MOUTH DAILY 09/13/2017 12/11/2017 Inactive Claritin-D 24 Hour 10 mg-240 mg tablet,extended release RxNorm: 0307286 Tablet(s) TAKE ONE TABLET BY MOUTH DAILY 08/28/2017 11/25/2017 Inactive Claritin-D 24 Hour 10 mg-240 mg tablet,extended release RxNorm: 0719453 TAKE ONE TABLET BY MOUTH DAILY 08/28/20172017 Inactive hydrocodone 10 mg-acetaminophen 325 mg tablet RxNorm: 036294 1 Tablet(s) PO QID as needed tooth abscess pain or back pain 08/25/2017 09/23/2017 Inactive Valium 5 mg tablet RxNorm: 661045 Tablet(s) TAKE ONE TABLET BY MOUTH EVERY NIGHT AT BEDTIME 08/07/2017 11/02/2017 Inactive Metanx (algal oil) 3 mg-35 mg-2 mg-90.314 mg capsule RxNorm: TAKE ONE CAPSULE BY MOUTH TWO TIMES DAILY 08/02/20172017 Inactive hydrocodone 10 mg-acetaminophen 325 mg tablet RxNorm: 191650 1 Tablet(s) PO QID as needed tooth abscess pain or back pain 07/27/2017 08/24/2017 Inactive enalapril 5 mg-hydrochlorothiazide 12.5 mg tablet RxNorm: 810278 TAKE ONE TABLET BY MOUTH DAILY 07/03/2017 12/28/2017 Inactive hydrocodone 10 mg-acetaminophen 325 mg tablet RxNorm: 251303 1 Tablet(s) PO QID as needed tooth abscess pain or back pain 06/23/2017 07/22/2017 Inactive hydrocodone 10 mg-acetaminophen 325 mg tablet RxNorm: 051753 1 Tablet(s) PO QID as needed tooth abscess pain or back pain 05/31/2017 06/22/2017 Inactive diclofenac sodium 75 mg tablet,delayed release RxNorm: 165525 TAKE ONE TABLET BY MOUTH TWICE A DAY 05/29/2017 09/25/2017 Inactive Valium 5 mg tablet RxNorm: 224488 Tablet(s) TAKE ONE TABLET BY MOUTH EVERY NIGHT AT BEDTIME 05/16/2017 04/17/2018 Inactive Cymbalta 60 mg capsule,delayed release RxNorm: 120664 TAKE ONE CAPSULE BY MOUTH DAILY 05/15/2017 09/11/2017 Inactive hydrocodone 10 mg-acetaminophen 325 mg tablet RxNorm: 056592 1 Tablet(s) PO QID as needed tooth abscess pain or back pain 2017 05/30/2017 Inactive Claritin-D 24 Hour 10 mg-240 mg tablet,extended release RxNorm: 5602153 Tablet(s) TAKE ONE TABLET BY MOUTH DAILY 04/19/2017 07/17/2017 Inactive hydrocodone 5 mg-acetaminophen 325 mg tablet RxNorm: 776503 1-2 Tablet(s) PO Q6 as needed 04/18/2017 05/02/2017 Inactive Effexor 75 mg tablet RxNorm: 168493 TAKE ONE TABLET BY MOUTH DAILY 04/13/2017 10/09/2017 Inactive Keflex 500 mg capsule RxNorm: 697656 1 Capsule(s) PO TID 201603/26/2017 Inactive clindamycin 300 mg capsule RxNorm: 990593 1 Capsule(s) PO TID 03/20/2017 03/26/2017 Inactive ceftriaxone 500 mg solution for injection RxNorm: 7409213 1 Gram(s) Inj 03/16/2017 03/16/2017 Inactive clindamycin 300 mg capsule RxNorm: 534218 1 Capsule(s) PO TID 03/16/2017 03/19/2017 Inactive hydrocodone 5 mg-acetaminophen 325 mg tablet RxNorm: 312360 1-2 Tablet(s) PO Q6 as needed 03/16/2017 03/16/2017 Inactive Keflex 500 mg capsule RxNorm: 777165 1 Capsule(s) PO TID 201603/19/2017 Inactive hydrocodone 10 mg-acetaminophen 325 mg tablet RxNorm: 178697 1 Tablet(s) PO QID as needed tooth abscess pain or back pain 03/16/2017 04/14/2017 Inactive simvastatin 40 mg tablet RxNorm: 021434 TAKE ONE TABLET BY MOUTH EVERY NIGHT AT BEDTIME 03/13/2017 09/08/2017 Inactive clindamycin 300 mg capsule RxNorm: 945916 1 Capsule(s) PO TID 03/10/2017 03/15/2017 Inactive hydrocodone 5 mg-acetaminophen 325 mg tablet RxNorm: 486329 1-2 Tablet(s) PO Q6 as needed 03/03/2017 03/15/2017 Inactive hydrocodone 5 mg-acetaminophen 325 mg tablet RxNorm: 045170 1 to 2 Tablet(s) PO Q6 as needed 02/15/2017 02/25/2017 Inactive hydrocodone 5 mg-acetaminophen 325 mg tablet RxNorm: 363578 1 to 2 Tablet(s) PO Q6 as needed 02/02/2017 02/12/2017 Inactive enalapril 5 mg-hydrochlorothiazide 12.5 mg tablet RxNorm: 679998 TAKE ONE TABLET BY MOUTH DAILY 01/23/2017 06/21/2017 Inactive diclofenac sodium 75 mg tablet,delayed release RxNorm: 261837 TAKE ONE TABLET BY MOUTH TWICE A DAY 01/23/2017 05/22/2017 Inactive hydrocodone 5 mg-acetaminophen 325 mg tablet RxNorm: 238628 1 to 2 Tablet(s) PO Q6 as needed 01/12/2017 01/22/2017 Inactive hydrocodone 5 mg-acetaminophen 325 mg tablet RxNorm: 794405 1 to 2 Tablet(s) PO Q6 as needed 12/29/2016 01/08/2017 Inactive hydrocodone 5 mg-acetaminophen 325 mg tablet RxNorm: 665964 1 to 2 Tablet(s) PO Q6 as needed 12/16/2016 12/26/2016 Inactive Cymbalta 60 mg capsule,delayed release RxNorm: 083414 TAKE ONE CAPSULE BY MOUTH DAILY 12/14/2016 05/12/2017 Inactive hydrocodone 5 mg-acetaminophen 325 mg tablet RxNorm: 411855 1 to 2 Tablet(s) PO Q6 as needed 11/30/2016 12/10/2016 Inactive Voltaren 1 % topical gel RxNorm: 637007 2 Gram(s) TOP QID bilateral SI joints 11/16/2016 01/14/2017 Inactive diclofenac sodium 75 mg tablet,delayed release RxNorm: 813342 TAKE ONE TABLET BY MOUTH TWICE A DAY 10/31/2016 01/22/2017 Inactive hydrocodone 5 mg-acetaminophen 325 mg tablet RxNorm: 632127 1 to 2 Tablet(s) PO Q6 as needed 10/27/2016 11/06/2016 Inactive hydrocodone 5 mg-acetaminophen 325 mg tablet RxNorm: 285584 1 to 2 Tablet(s) PO Q6 as needed 10/05/2016 10/15/2016 Inactive Effexor 75 mg tablet RxNorm: 334999 TAKE ONE TABLET BY MOUTH DAILY 10/03/2016 03/31/2017 Inactive Claritin-D 24 Hour 10 mg-240 mg tablet,extended release RxNorm: 9029802 Tablet(s) TAKE ONE TABLET BY MOUTH DAILY 09/26/2016 12/24/2016 Inactive hydrocodone 5 mg-acetaminophen 325 mg tablet RxNorm: 221700 1 to 2 Tablet(s) PO Q6 as needed 09/09/2016 09/19/2016 Inactive hydrocodone 5 mg-acetaminophen 325 mg tablet RxNorm: 641169 1 to 2 Tablet(s) PO Q6 as needed 08/19/2016 08/29/2016 Inactive hydrocodone 5 mg-acetaminophen 325 mg tablet RxNorm: 287742 1 to 2 Tablet(s) PO Q6 as needed 08/01/2016 08/11/2016 Inactive enalapril 5 mg-hydrochlorothiazide 12.5 mg tablet RxNorm: 837585 Tablet(s) TAKE ONE TABLET BY MOUTH DAILY 07/18/201601/13 Inactive Movantik 25 mg tablet RxNorm: 6117552 1 Tablet(s) PO QAM 201611/07/2017 Inactive hydrocodone 5 mg-acetaminophen 325 mg tablet RxNorm: 446573 1 to 2 Tablet(s) PO Q6 as needed 07/15/2016 07/25/2016 Inactive diclofenac sodium 75 mg tablet,delayed release RxNorm: 782832 TAKE ONE TABLET BY MOUTH TWICE A DAY 06/27/2016 10/24/2016 Inactive hydrocodone 5 mg-acetaminophen 325 mg tablet RxNorm: 409569 1 to 2 Tablet(s) PO Q6 as needed 06/16/2016 06/26/2016 Inactive Claritin-D 24 Hour 10 mg-240 mg tablet,extended release RxNorm: 7389460 Tablet(s) TAKE ONE TABLET BY MOUTH DAILY 06/10/2016 08/08/2016 Inactive Metanx (algal oil) 3 mg-35 mg-2 mg-90.314 mg capsule RxNorm: Capsule(s) TAKE ONE CAPSULE BY MOUTH TWO TIMES DAILY 06/02/2016 05/27/2017 Inactive hydrocodone 5 mg-acetaminophen 325 mg tablet RxNorm: 079997 1 to 2 Tablet(s) PO Q6 as needed 05/27/2016 06/06/2016 Inactive Valium 5 mg tablet RxNorm: 793706 Tablet(s) TAKE ONE TABLET BY MOUTH EVERY NIGHT AT BEDTIME 05/16/2016 07/14/2016 Inactive Metanx (algal oil) 3 mg-35 mg-2 mg-90.314 mg capsule RxNorm: TAKE ONE CAPSULE BY MOUTH TWO TIMES DAILY 05/11/20162015 Inactive hydrocodone 5 mg-acetaminophen 325 mg tablet RxNorm: 409434 1 to 2 Tablet(s) PO Q6 as needed 04/25/2016 05/02/2016 Inactive [SAVINGS FOR NON-COVERED DRUGS -- BIN: 673867, PCN: ASPROD1, Group: XXXXX, ID# [id number], Questions: . THIS IS NOT INSURANCE.] hydrocodone 5 mg-acetaminophen 325 mg tablet RxNorm: 447826 1 to 2 Tablet(s) PO Q6 as needed 04/01/2016 04/08/2016 Inactive [SAVINGS FOR NON-COVERED DRUGS -- BIN: 926822, PCN: ASPROD1, Group: XXXXX, ID# [id number], Questions: . THIS IS NOT INSURANCE.] diclofenac sodium 75 mg tablet,delayed release RxNorm: 459184 TAKE ONE TABLET BY MOUTH TWICE A DAY 03/21/2016 06/18/2016 Inactive enalapril 5 mg-hydrochlorothiazide 12.5 mg tablet RxNorm: 621343 TAKE ONE TABLET BY MOUTH DAILY 03/21/2016 07/17/2016 Inactive Claritin-D 24 Hour 10 mg-240 mg tablet,extended release RxNorm: 6556897 Tablet(s) TAKE ONE TABLET BY MOUTH DAILY 03/11/2016 06/08/2016 Inactive hydrocodone 5 mg-acetaminophen 325 mg tablet RxNorm: 557313 1 to 2 Tablet(s) PO Q6 as needed 03/08/2016 03/15/2016 Inactive [SAVINGS FOR NON-COVERED DRUGS -- BIN: 126975, PCN: ASPROD1, Group: XXXXX, ID# [id number], Questions: . THIS IS NOT INSURANCE.] simvastatin 40 mg tablet RxNorm: 786265 1 Tablet(s) PO QHS 10/03/2016 Inactive Effexor 75 mg tablet RxNorm: 646895 Tablet(s) TAKE ONE TABLET BY MOUTH DAILY 03/08/2016 10/02/2016 Inactive simvastatin 40 mg tablet RxNorm: 203745 TAKE ONE TABLET BY MOUTH EVERY NIGHT AT BEDTIME 02/05/2016 05/04/2016 Inactive Request already responded to by other means (e.g. phone or fax) hydrocodone 5 mg-acetaminophen 325 mg tablet RxNorm: 835255 1 to 2 Tablet(s) PO Q6 as needed 02/02/2016 02/09/2016 Inactive [SAVINGS FOR NON-COVERED DRUGS -- BIN: 371792, PCN: ASPROD1, Group: XXXXX, ID# [id number], Questions: . THIS IS NOT INSURANCE.] simvastatin 40 mg tablet RxNorm: 881154 1 Tablet(s) PO QHS 03/07/2016 Inactive Cymbalta 60 mg capsule,delayed release RxNorm: 915196 TAKE ONE CAPSULE BY MOUTH DAILY 01/14/2016 06/11/2016 Inactive Request already responded to by other means ( e.g. phone or fax) Claritin-D 24 Hour 10 mg-240 mg tablet,extended release RxNorm: 0065832 Tablet(s) TAKE ONE TABLET BY MOUTH DAILY 01/14/2016 02/12/2016 Inactive hydrocodone 5 mg-acetaminophen 325 mg tablet RxNorm: 695712 1 to 2 Tablet(s) PO Q6 as needed 01/14/2016 01/21/2016 Inactive [SAVINGS FOR NON-COVERED DRUGS -- BIN: 116920, PCN: ASPROD1, Group: XXXXX, ID# [id number], Questions: . THIS IS NOT INSURANCE.] Claritin-D 24 Hour 10 mg-240 mg tablet,extended release RxNorm: 2739828 TAKE ONE TABLET BY MOUTH DAILY 01/14/20162015 Inactive Cymbalta 60 mg capsule,delayed release RxNorm: 755982 Capsule(s) TAKE ONE CAPSULE BY MOUTH DAILY 01/12/2016 01/13/2016 Inactive Claritin-D 24 Hour 10 mg-240 mg tablet,extended release RxNorm: 4722835 TAKE ONE TABLET BY MOUTH DAILY 01/11/20162015 Inactive Claritin-D 24 Hour 10 mg-240 mg tablet,extended release RxNorm: 4237711 TAKE ONE TABLET BY MOUTH DAILY 01/11/20162015 Inactive Claritin-D 24 Hour 10 mg-240 mg tablet,extended release RxNorm: 3659721 TAKE ONE TABLET BY MOUTH DAILY 01/07/20162015 Inactive Effexor 75 mg tablet RxNorm: 567858 TAKE ONE TABLET BY MOUTH DAILY 01/01/2016 02/29/2016 Inactive diclofenac sodium 75 mg tablet,delayed release RxNorm: 037674 TAKE ONE TABLET BY MOUTH TWICE A DAY 12/23/2015 03/20/2016 Inactive enalapril 5 mg-hydrochlorothiazide 12.5 mg tablet RxNorm: 079457 TAKE ONE TABLET BY MOUTH DAILY 12/23/2015 03/20/2016 Inactive hydrocodone 5 mg-acetaminophen 325 mg tablet RxNorm: 241466 1 to 2 Tablet(s) PO Q6 as needed 12/22/2015 12/29/2015 Inactive [SAVINGS FOR NON-COVERED DRUGS -- BIN: 505055, PCN: ASPROD1, Group: XXXXX, ID# [id number], Questions: . THIS IS NOT INSURANCE.] Valium 5 mg tablet RxNorm: 082723 Tablet(s) TAKE ONE TABLET BY MOUTH EVERY NIGHT AT BEDTIME 12/01/2015 04/17/2018 Inactive hydrocodone 5 mg-acetaminophen 325 mg tablet RxNorm: 006618 1 to 2 Tablet(s) PO Q6 as needed 11/30/2015 12/07/2015 Inactive [SAVINGS FOR NON-COVERED DRUGS -- BIN: 542568, PCN: ASPROD1, Group: XXXXX, ID# [id number], Questions: . THIS IS NOT INSURANCE.] hydrocodone 5 mg-acetaminophen 325 mg tablet RxNorm: 949872 1 to 2 Tablet(s) PO Q6 as needed 11/09/2015 11/16/2015 Inactive [SAVINGS FOR NON-COVERED DRUGS -- BIN: 411446, PCN: ASPROD1, Group: XXXXX, ID# [id number], Questions: . THIS IS NOT INSURANCE.] Claritin-D 24 Hour 10 mg-240 mg tablet,extended release RxNorm: 6744345 Tablet(s) TAKE ONE TABLET BY MOUTH DAILY 11/05/2015 11/04/2015 Inactive Claritin-D 24 Hour 10 mg-240 mg tablet,extended release RxNorm: 2585129 Tablet(s) TAKE ONE TABLET BY MOUTH DAILY 11/05/2015 01/06/2016 Inactive Claritin-D 24 Hour 10 mg-240 mg tablet,extended release RxNorm: 6774403 Tablet(s) TAKE ONE TABLET BY MOUTH DAILY 10/30/2015 03/10/2016 Inactive hydrocodone 5 mg-acetaminophen 325 mg tablet RxNorm: 337376 1 to 2 Tablet(s) PO Q6 as needed 10/09/2015 10/16/2015 Inactive [SAVINGS FOR NON-COVERED DRUGS -- BIN: 629357, PCN: ASPROD1, Group: XXXXX, ID# [id number], Questions: . THIS IS NOT INSURANCE.] Effexor 75 mg tablet RxNorm: 437591 TAKE ONE TABLET BY MOUTH DAILY 10/05/2015 12/31/2015 Inactive simvastatin 40 mg tablet RxNorm: 428885 1 Tablet(s) PO QHS 01/31/2016 Inactive hydrocodone 5 mg-acetaminophen 325 mg tablet RxNorm: 063702 1 to 2 Tablet(s) PO Q6 as needed 09/15/2015 09/22/2015 Inactive [SAVINGS FOR NON-COVERED DRUGS -- BIN: 415452, PCN: ASPROD1, Group: XXXXX, ID# [id number], Questions: . THIS IS NOT INSURANCE.] Valium 5 mg tablet RxNorm: 173188 Tablet(s) TAKE ONE TABLET BY MOUTH EVERY NIGHT AT BEDTIME 09/08/2015 04/17/2018 Inactive enalapril 5 mg-hydrochlorothiazide 12.5 mg tablet RxNorm: 614085 Tablet(s) TAKE ONE TABLET BY MOUTH DAILY 08/21/201512/17 Inactive diclofenac sodium 75 mg tablet,delayed release RxNorm: 598151 1 Tablet(s) PO BID 08/21/2015 12/18/2015 Inactive hydrocodone 5 mg-acetaminophen 325 mg tablet RxNorm: 321614 1 to 2 Tablet(s) PO Q6 as needed 08/13/2015 08/20/2015 Inactive [SAVINGS FOR NON-COVERED DRUGS -- BIN: 319371, PCN: ASPROD1, Group: XXXXX, ID# [email or web address], Questions: . THIS IS NOT INSURANCE.] clindamycin 300 mg capsule RxNorm: 265179 1 Capsule(s) PO TID 08/06/2015 08/10/2015 Inactive Claritin-D 24 Hour 10 mg-240 mg tablet,extended release RxNorm: 5482249 Tablet(s) TAKE ONE TABLET BY MOUTH DAILY 07/23/2015 10/20/2015 Inactive hydrocodone 5 mg-acetaminophen 325 mg tablet RxNorm: 307766 1 to 2 Tablet(s) PO Q6 as needed 07/23/2015 07/30/2015 Inactive [SAVINGS FOR NON-COVERED DRUGS -- BIN: 714395, PCN: ASPROD1, Group: XXXXX, ID# [id number], Questions: . THIS IS NOT INSURANCE.] Claritin-D 24 Hour 10 mg-240 mg tablet,extended release RxNorm: 8751579 TAKE ONE TABLET BY MOUTH DAILY 07/22/20152015 Inactive Valium 5 mg tablet RxNorm: 127369 Tablet(s) TAKE ONE TABLET BY MOUTH EVERY NIGHT AT BEDTIME 07/22/2015 04/17/2018 Inactive Claritin-D 24 Hour 10 mg-240 mg tablet,extended release RxNorm: 9762552 TAKE ONE TABLET BY MOUTH DAILY 07/20/20152015 Inactive Cymbalta 60 mg capsule,delayed release RxNorm: 143075 TAKE ONE CAPSULE BY MOUTH DAILY 07/20/2015 01/11/2016 Inactive cyclobenzaprine 10 mg tablet RxNorm: 076253 TAKE ONE TABLET BY MOUTH AT BEDTIME NEEDED 07/06/2015 08/04/2015 Inactive hydrocodone 5 mg-acetaminophen 325 mg tablet RxNorm: 551584 1 to 2 Tablet(s) PO Q6 as needed 06/23/2015 06/30/2015 Inactive [SAVINGS FOR NON-COVERED DRUGS -- BIN: 134116, PCN: ASPROD1, Group: XXXXX, ID# [id number], Questions: . THIS IS NOT INSURANCE.] Effexor 75 mg tablet RxNorm: 654995 1 Tablet(s) PO daily 201409/28/2015 Inactive hydrocodone 5 mg-acetaminophen 325 mg tablet RxNorm: 984355 1 to 2 Tablet(s) PO Q6 as needed 05/22/2015 05/29/2015 Inactive [SAVINGS FOR NON-COVERED DRUGS -- BIN: 959843, PCN: ASPROD1, Group: XXXXX, ID# [id number], Questions: . THIS IS NOT INSURANCE.] Valium 5 mg tablet RxNorm: 409648 Tablet(s) TAKE ONE TABLET BY MOUTH EVERY NIGHT AT BEDTIME 05/22/2015 04/17/2018 Inactive diclofenac sodium 75 mg tablet,delayed release RxNorm: 923151 1 Tablet(s) PO BID 05/04/2015 08/20/2015 Inactive Metanx (algal oil) 3 mg-35 mg-2 mg-90.314 mg capsule RxNorm: 1 Capsule(s) PO BID 05/04/2015 04/27/2016 Inactive enalapril 5 mg-hydrochlorothiazide 12.5 mg tablet RxNorm: 100782 TAKE ONE TABLET BY MOUTH DAILY 04/27/2015 08/20/2015 Inactive hydrocodone 5 mg-acetaminophen 325 mg tablet RxNorm: 718675 1 to 2 Tablet(s) PO Q6 as needed 04/27/2015 05/04/2015 Inactive [SAVINGS FOR NON-COVERED DRUGS -- BIN: 630428, PCN: ASPROD1, Group: XXXXX, ID# [id number], Questions: . THIS IS NOT INSURANCE.] hydrocodone 5 mg-acetaminophen 325 mg tablet RxNorm: 843639 1 to 2 Tablet(s) PO Q6 as needed 03/26/2015 04/02/2015 Inactive [SAVINGS FOR NON-COVERED DRUGS -- BIN: 464170, PCN: ASPROD1, Group: XXXXX, ID# [id number], Questions: . THIS IS NOT INSURANCE.] Claritin-D 24 Hour 10 mg-240 mg tablet,extended release RxNorm: 5134631 Tablet(s) TAKE ONE TABLET BY MOUTH DAILY 03/24/2015 07/19/2015 Inactive Valium 5 mg tablet RxNorm: 422059 TAKE ONE TABLET BY MOUTH EVERY NIGHT AT BEDTIME 03/05/2015 04/03/2015 Inactive Valium 5 mg tablet RxNorm: 273582 1 Tablet(s) PO daily as needed 03/05/2015 03/05/2015 Inactive [SAVINGS FOR NON-COVERED DRUGS -- BIN:058566, PCN: ASPROD1, Group : XXXXX, ID# [id number], Questions: . THIS IS NOT INSURANCE.] hydrocodone 5 mg-acetaminophen 325 mg tablet RxNorm: 651591 1 to 2 Tablet(s) PO Q6 as needed 02/18/2015 02/25/2015 Inactive [SAVINGS FOR NON-COVERED DRUGS -- BIN: 086471, PCN: ASPROD1, Group: XXXXX, ID# [id number], Questions: . THIS IS NOT INSURANCE.] enalapril 5 mg-hydrochlorothiazide 12.5 mg tablet RxNorm: 287429 1 Tablet(s) PO daily 01/30/2015 04/26/2015 Inactive hydrocodone 5 mg-acetaminophen 325 mg tablet RxNorm: 738639 1 to 2 Tablet(s) PO Q6 as needed 01/22/2015 01/29/2015 Inactive [SAVINGS FOR NON-COVERED DRUGS -- BIN: 474749, PCN: ASPROD1, Group: XXXXX, ID# [id number], Questions: . THIS IS NOT INSURANCE.] Claritin-D 24 Hour 10 mg-240 mg tablet,extended release RxNorm: 0448546 TAKE ONE TABLET BY MOUTH DAILY 01/15/20152014 Inactive Claritin-D 24 Hour 10 mg-240 mg tablet,extended release RxNorm: 4325946 Tablet(s) TAKE ONE TABLET BY MOUTH DAILY 01/15/2015 01/14/2015 Inactive cyclobenzaprine 10 mg tablet RxNorm: 939902 1 Tablet(s) PO QHS as needed 12/29/2014 01/27/2015 Inactive hydrocodone 5 mg-acetaminophen 325 mg tablet RxNorm: 976595 1 to 2 Tablet(s) PO Q6 as needed 12/23/2014 12/30/2014 Inactive [SAVINGS FOR NON-COVERED DRUGS -- BIN: 643172, PCN: ASPROD1, Group: XXXXX, ID# [id number], Questions: . THIS IS NOT INSURANCE.] Cymbalta 60 mg capsule,delayed release RxNorm: 283514 1 Capsule(s) PO daily 12/18/2014 07/15/2015 Inactive Claritin-D 24 Hour 10 mg-240 mg tablet,extended release RxNorm: 6640635 TAKE ONE TABLET BY MOUTH DAILY 12/15/20142014 Inactive Claritin-D 24 Hour 10 mg-240 mg tablet,extended release RxNorm: 3466420 TAKE ONE TABLET BY MOUTH DAILY 12/15/20142014 Inactive Claritin-D 24 Hour 10 mg-240 mg tablet,extended release RxNorm: 9291481 TAKE ONE TABLET BY MOUTH DAILY 12/15/20142014 Inactive Claritin-D 24 Hour 10 mg-240 mg tablet,extended release RxNorm: 9120760 1 Tablet(s ) PO daily 12/10/2014 12/14/2014 Inactive hydrocodone 5 mg-acetaminophen 325 mg tablet RxNorm: 390292 1 to 2 Tablet(s) PO Q6 as needed 12/08/2014 12/22/2014 Inactive [SAVINGS FOR NON-COVERED DRUGS -- BIN: 293946, PCN: ASPROD1, Group: XXXXX, ID# [id number], Questions: . THIS IS NOT INSURANCE.] hydrocodone 5 mg-acetaminophen 325 mg tablet RxNorm: 929500 1 to 2 Tablet(s) PO Q6 as needed 11/25/2014 12/07/2014 Inactive [SAVINGS FOR NON-COVERED DRUGS -- BIN: 874003, PCN: ASPROD1, Group: XXXXX, ID# [id number], Questions: . THIS IS NOT INSURANCE.] Claritin-D 24 Hour 10 mg-240 mg tablet,extended release RxNorm: 5175073 1 Tablet(s ) PO daily 11/07/2014 12/06/2014 Inactive Claritin-D 24 Hour 10 mg-240 mg tablet,extended release RxNorm: 7685437 1 Tablet(s ) PO daily 11/07/2014 11/06/2014 Inactive hydrocodone 5 mg-acetaminophen 325 mg tablet RxNorm: 913266 1 to 2 Tablet(s) PO Q6 as needed 11/03/2014 11/24/2014 Inactive [SAVINGS FOR NON-COVERED DRUGS -- BIN: 733594, PCN: ASPROD1, Group: XXXXX, ID# [id number], Questions: . THIS IS NOT INSURANCE.] Valium 5 mg tablet RxNorm: 832156 1 Tablet(s) PO daily as needed 10/23/2014 12/20/2014 Inactive [SAVINGS FOR NON-COVERED DRUGS -- BIN:373060, PCN: ASPROD1, Group : XXXXX, ID# [id number], Questions: . THIS IS NOT INSURANCE.] Cialis 5 mg tablet RxNorm: 833173 1/2 Tablet(s) PO daily No Stop Date Active [SAVINGS FOR NON-COVERED DRUGS -- BIN:123286, PCN: ASPROD1, Group: XXXXX, ID# [id number], Questions: . THIS IS NOT INSURANCE.] aspirin 81 mg tablet RxNorm: 821147 1 Tablet(s) PO daily No Start Date Active Effexor 75 mg tablet RxNorm: 760506 1 Tablet(s) PO daily No Start Date 05/31/2015 Inactive Valium 5 mg tablet RxNorm: 689004 1 Tablet(s) PO daily as needed No Start Date 10/22/2014 Inactive simvastatin 40 mg tablet RxNorm: 024479 1 Tablet(s) PO QHS No Start Date 10/04/2015 Inactive enalapril 5 mg-hydrochlorothiazide 12.5 mg tablet RxNorm: 070731 oral No Start Date 01/29/2015 Inactive cyclobenzaprine 10 mg tablet RxNorm: 529458 1 Tablet(s) PO as needed No Start Date 12/28/2014 Inactive Cymbalta 60 mg capsule,delayed release RxNorm: 473654 1 Capsule(s) PO daily No Start Date 12/17/2014 Inactive hydrocodone 5 mg-acetaminophen 325 mg tablet RxNorm: 239457 1 to 2 Tablet(s) PO Q6 as needed No Start Date 11/02/2014 Inactive diclofenac sodium 75 mg tablet,delayed release RxNorm: 164538 1 Tablet(s) PO BID No Start Date 2015 Inactive Cialis 5 mg tablet RxNorm: 266198 1 Tablet(s) PO daily No Start Date 10/12/2014 Inactive Medication Administered Medication Codes Instructions Start Date Status ceftriaxone 500 mg solution for injection RxNorm: 1316597 1Gram 03/16/2017 No longer Active Immunizations No [...] Observation Code Item Item Code Result Date Hepatitis C Antibody With Reflex For Hcv Antibody Verificat 172564 HEPATITIS C ANTIBODY NEGATIVE 07/19/2016 Lipid Ord30 CHOL 180 mg/dL 07/18/2016 Lipid Ord30 HDL 56.0 mg/dl 07/18/2016 Lipid Ord30 TRIG 153 mg/dL 07/18/2016 Lipid Ord30 LDL 93 mg/dL 07/18/2016 Lipid Ord30 C/HDL 3.2 Ratio 07/18/2016 Comp Metabolic Lpc611 NA 136 mEq/L 07/18/2016 Comp Metabolic Kby650 K 4.3 mEq/L 07/18/2016 Comp Metabolic Ket887 CL 100 mEq/L 07/18/2016 Comp Metabolic Zuq221 CO2 30.0 mEq/L 07/18/2016 Comp Metabolic Scg924 ANION GAP 10 07/18/2016 Comp Metabolic Sph684 GLUCOSE 104 mg/dL 07/18/2016 Comp Metabolic Kzi337 Creat 1.0 mg/dL 07/18/2016 Comp Metabolic Wir305 eGFR 81 ml/min/1.73m2 07/18/2016 Comp Metabolic Bbr125 BUN 21 mg/dL 07/18/2016 Comp Metabolic Kop593 B/C Ratio 20.8 Ratio 07/18/2016 Comp Metabolic Now342 CALCIUM 9.5 mg/dL 07/18/2016 Comp Metabolic Hfu559 ALK PHOS 45 U/L 07/18/2016 Comp Metabolic Hjv299 AST(SGOT) 26 U/L 07/18/2016 Comp Metabolic Cch641 ALT(SGPT) 52 U/L 07/18/2016 Comp Metabolic Ysj174 BILI T 0.8 mg/dL 07/18/2016 Comp Metabolic Jla798 ALBUMIN 4.7 g/dL 07/18/2016 Comp Metabolic Put307 TPRO 6.9 g/dL 07/18/2016 Comp Metabolic Dak677 GLOB 2.2 g/dL 07/18/2016 Comp Metabolic Tpj132 A/G Ratio 2.2 Ratio 07/18/2016 Comp Metabolic Kfo677 Osmo 275 mOsmo 07/18/2016 Cbc With Differential [...] 94.0 fl 07/18/2016 Cbc With Differential Ord2 [place]% 11.2 % 07/18/2016 Cbc With Differential Ord2 MCH 31.5 pg 07/18/2016 Cbc With Differential Ord2 Eos% 3.2 % 07/18/2016 Cbc With Differential Ord2 MCHC 33.5 pg 07/18/2016 Cbc With Differential Ord2 PLT 191 K/ul 07/18/2016 Cbc With Differential Ord2 Baso% 0.2 % 07/18/2016 Cbc With Differential Ord2 Neut ABS# 3.29 K/ul 07/18/2016 Cbc With Differential Ord2 RDW 14.4 % 07/18/2016 Cbc With Differential Ord2 Lymph ABS# 0.69 K/ul 07/18/2016 Cbc With Differential Ord2 [place] ABS# 0.5 K/ul 07/18/2016 Cbc With Differential Ord2 Eos ABS# 0.2 K/ul 07/18/2016 Cbc With Differential Ord2 Baso ABS# 0.0 K/ul 07/18/2016 Tsh Ord6 hTSH II 1.99 uIU/mL 07/18/2016 Total Psa Ord10 PSA 0.75 ng/mL 07/18/2016 %Hba1C Fvc485 % HbA1c 44305-2 5.8 % 07/18/2016 %Hba1C Xcm794 Gluc Ave 120 mg/dL 07/18/2016 Review of [...] Code : 8480-6 BMI: 32.7 Code : 00877-3 Heart Rate 1 : 85 bpm Height: 5'10" SpO2: 99% Weight: 228 lbs 10/20/2017 Blood Pressure 1: 138/78 Code : 8480-6 BMI: 32.4 Code : 85055-9 Heart Rate 1 : 80 bpm Height: 5'10" SpO2: 98% Weight: 226 lbs 03/20/2017 Blood Pressure 1: 134/72 Code : 8480-6 Heart Rate 1: 87 bpm Height: 5'10" SpO2: 97% 03/16/2017 Blood Pressure 1: 150/84 Code : 8480-6 BMI: 32.4 Code : 17247-9 Heart Rate 1 : 98 bpm Height: 5'10" SpO2: 97% Weight: 226 lbs 03/10/2017 Blood Pressure 1: 140/72 Code : 8480-6 BMI: 32.4 Code : 44248-5 Heart Rate 1 : 81 bpm Height: 5'10" SpO2: 97% Weight: 226 lbs 11/16/2016 Blood Pressure 1: 142/80 Code : 8480-6 BMI: 32.1 Code : 75916-4 Heart Rate 1 : 95 bpm Height: 5'10" SpO2: 98% Weight: 224 lbs 07/15/2016 Blood Pressure 1: 130/78 Code : 8480-6 BMI: 32.0 Code : 57009-5 Heart Rate 1 : 85 bpm Height: 5'10" SpO2: 95% Weight: 223 lbs 03/08/2016 Blood Pressure 1: 138/84 Code : 8480-6 BMI: 31.6 Code : 08717-9 Heart Rate 1 : 86 bpm Height: 5'10" SpO2: 98% Weight: 220 lbs 11/26/2015 Blood Pressure 1: 132/82 Code : 8480-6 BMI: 31.6 Code : 65129-8 Height: 5'10 " Weight: 220 lbs 08/06/2015 Blood Pressure 1: 138/74 Code : 8480-6 BMI: 31.0 Code : 19433-6 Heart Rate 1 : 87 bpm Height: 5'10" SpO2: 95% Weight: 216 lbs 05/04/2015 Blood Pressure 1: 128/80 Code : 8480-6 BMI: 33.6 Code : 41731-9 Heart Rate 1 : 94 bpm Height: 5'10" SpO2: 97% Weight: 234 lbs 11/06/2014 Blood Pressure 1: 132/92 Code : 8480-6 BMI: 31.1 Code : 96997-7 Heart Rate 1 : 88 bpm Height: [...] Low back pain[ICD10: M54.5] [facility] CPT-4 : 99431 05/24/2018 [id number] EST. PATIENT, LEVEL IV Diagnosis: Bilateral primary osteoarthritis of knee[ICD10: M17.0] [facility] CPT-4: 80931 10/20/2017 [id number] EST. PATIENT, LEVEL IV Diagnosis: Periapical abscess without sinus[ICD10: K04.7] Diagnosis: Cellulitis and abscess of mouth[ICD10: K12.2] [facility] CPT-4: 33211 03/20/2017 ([id number]) 30492 EST. PATIENT, LEVEL III Diagnosis: Periapical abscess without sinus[ICD10: K04.7] Diagnosis: Cellulitis and abscess of mouth[ICD10: K12.2] Mayte Mcfarlane MD, [facility] CPT-4: 18749 03/16/2017 ([id number]) 63123 EST. PATIENT, LEVEL III Diagnosis: Periapical abscess without sinus[ICD10: K04.7] Niya Mcfarlane MD, [facility] CPT-4: 71002 03/10/2017 ([id number]) 06444 EST. PATIENT, LEVEL IV Diagnosis: Essential (primary) hypertension[ICD10: I10] Diagnosis: Low back pain[ICD10: M54.5] Mayte Mcfarlane MD, [facility] CPT- 4: 83433 11/16/2016 ([id number]) 51300 EST. PATIENT, LEVEL IV Diagnosis: Mixed hyperlipidemia[ICD10: E78.2] Diagnosis: Essential (primary) hypertension[ICD10: I10] Diagnosis: Impaired fasting glucose[ICD10: R73.01] Diagnosis: Encounter for screening for malignant neoplasm of prostate[ICD10: Z12.5] Diagnosis: Encounter for screening for other viral diseases[ICD10: Z11.59] Diagnosis: Drug induced constipation[ICD10: K59.03] Niya Mcfarlane MD, [facility] CPT-4: 46845 07/15/2016 ([id number]) 53789 EST. PATIENT, LEVEL III Diagnosis: Bilateral primary osteoarthritis of knee[ICD10: M17.0] Niya Mcfarlane MD, [facility] CPT-4: 20985 03/08/2016 ([id number]) 81544 EST. PATIENT, LEVEL III Diagnosis: Bilateral primary osteoarthritis of knee[ICD10: M17.0] Niya Mcfarlane MD, [facility] CPT-4: 22083 11/26/2015 [id number] EST. PATIENT, LEVEL IV Diagnosis: Cervicalgia[ICD10: M54.2] Diagnosis: Other specified polyneuropathies[ICD10: G62.89] Diagnosis: Dental caries, unspecified[ICD10: K02.9] Diagnosis: Major depressive disorder, single episode, unspecified[ICD10: F32.9] Niya Mcfarlane MD, [facility] CPT-4: 41153 08/06/2015 ([id number] EST. PATIENT, LEVEL IV Diagnosis: Mixed hyperlipidemia[ICD10: E78.2] Diagnosis: Idiopathic gout, unspecified ankle and foot[ICD10: M10.079] Diagnosis: Other specified polyneuropathies[ICD10: G62.89] Diagnosis: Morbid (severe) obesity due to excess calories[ICD10: E66.01] [facility] CPT-4: 28055 05/04/2015 ([id number]) OFFICE VISIT, NEW - LEVEL 4 Diagnosis: GOUT[ICD9: 274.9] Diagnosis: Sinusitis, acute[ICD9: 461.9] Diagnosis: HYPERLIPIDEMIA[ICD9: 272.4] [facility] CPT- 4: 25079 11/06/2014 Plan of Care Planned Activity Notes Codes Status Date Patient Education: Patient Medication Summary Completed 05/28/2018 Care Plan: Cbc With Differential Pending 05/28/2018 Care Plan: Comp Metabolic Pending 05/28/2018 Care Plan: Tsh Pending 05/28/2018 Care Plan: Lipid Pending 05/28/2018 Care Plan: Total Psa Pending 05/28/2018 Visit Plan: OA knees - pt has chronic pain - has been maintained on current medications, has not sought out other medications, only uses PRN pain medications as directed, and understands the consequences of over- medication. 05/24/2018 Appointment: Julianna Stanford WPtel: [facility]5 [facility]66[facility] (15 min) Moderate 05/24/2018 Patient Education: Patient Medication Summary Completed 05/24/2018 Patient Education: Back Pain Completed 05/24/2018 Appointment: Niya Bryant WPtel: [address] [place], [place] [phone] [place] (15 min) Moderate 05/21/2018 Visit Plan: OA knees - pt has chronic pain - has been maintained on current medications, has not sought out other medications, only uses PRN pain medications as directed, and understands the consequences of over- medication. 10/20/2017 Appointment: Julianna Stanford WPtel: [facility]0 [facility] (30 min) Complex 10/20/2017 Patient Education: Patient Medication Summary Completed 10/20/2017 Appointment: Julianna Stanford WPtel: [facility]7 [phone] (15 min) Moderate 10/19/2017 Visit Plan: Cellulitis/Abscess - continue with current treatment course - restart keflex as patient had improvement of symptoms on the rocephin. continue with clindamycin and increase probiotic to tid dosing. Keep follow up appointment with Dr. Hendrix on 03/28. Notify clinic with any changes or concerns, or with any questions. 03/20/2017 Appointment: Julianna Stanford WPtel: [facility]66[facility] (30 min) Complex 03/20/2017 Patient Education: Patient [...] tid dosing. 03/16/2017 Appointment: Mayte Mcfarlane WPtel: [facility]9 [facility] (15 min) Moderate 03/16/2017 Patient Education: Patient Medication Summary Completed 03/16/2017 Visit Plan: Abscessed tooth-discussed with Dr Mcfarlane- plan for IV abx x 3 days-will start with clindamycin and rocephin today and continue rocephin Monday and Monday-will increase dose of oral clindamycin - rx sent to patient's pharmacy and instructed on use. Patient verbalized understanding of plan. 03/10/2017 Appointment: Niya Bryant WPtel: [facility]0 [phone] (15 min) Moderate 03/10/2017 Patient Education: Patient [...] they worsen. 11/16/2016 Appointment: [facility]el[phone] (15 min) Moderate 11/16/2016 Patient Education: Patient [...] hgb a1c 07/15/2016 Appointment: [phone] [place] (15 min) Moderate 07/15/2016 Patient Education: Patient Medication Summary Completed 07/15/2016 Patient Education: Obesity Completed 07/15/2016 Patient Education: Hypertension Completed 07/15/2016 Visit Plan: OA knees - pt has chronic pain - has been maintained on current medications, has not sought out other medications, only uses PRN pain medications as directed, and understands the consequences of over- medication. 03/08/2016 Appointment: Niya Bryant WPtel: [phone] [phone] (30 min) Complex 03/08/2016 Patient Education: Patient [...] plan. 11/26/2015 Appointment: Niya Bryant WPtel: [phone] [phone] (30 min) Complex 11/26/2015 Patient Education: Patient [...] to medications. 11/06/2014 Appointment: Mayte Mcfarlane WPtel: [facility] [place] ([place] New Patient 11/06/2014 Patient [...]
--- OUTSIDE RECORDS SUMMARY | 2018-07-11 12:58 | XMS REPORT | CCD ---
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 Name Role Phone PP Unavailable CCM Unavailable Summary Purpose Interface Exchange Insurance Providers Payer name Policy type / Coverage type Covered constitution party ID Effective Begin Date Effective End Date Blue Cross Blue [facility] Blue Cross/Blue Shield [id number] Unknown Unknown Family history Father Diagnosis Age At Onset Cancer Unknown Stroke Unknown Heart Attack Unknown Hyperlipidemia Unknown Diabetes mellitus Type 2 Unknown Arthritis Unknown Heart disease Unknown Mother Diagnosis Age At Onset Arthritis Unknown Hypertension Unknown Breast cancer Unknown Sister Diagnosis Age At Onset Multiple sclerosis Unknown Social History Social History Element Codes Description Effective Dates Employment Unknown 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 [employer] 11/16/2016 Number of children Unknown 3 one daughter lives locally, other children live in [facility] 05/04/2015 Marital status Unknown Danielle 11/06/[address]: 917879729 Has never smoked or chewed tobacco 11/06/2014 Alcohol history Unknown occasionally drinks alcohol 11/06/2014 Allergies, Adverse Reactions, Alerts Substance Reaction Codes Entered Date Inactivated Date Status * NO KNOWN FOOD ALLERGIES Unknown 11/06/2014 No Inactive Date Active amoxicillin RxNorm: 723 11/06/2014 No Inactive Date Active AUGMENTIN RxNorm: 213739 11/06/2014 No Inactive Date Active Past Medical History Illness Codes Condition Status Onset Date Resolved Date Bilateral primary osteoarthritis of knee ICD-9: 715.96 ICD-10: M17.0 Active 03/07/2016 Unknown Low back pain ICD-9: 724.2 ICD-10: M54.5 Active 11/16/2016 Unknown Cellulitis and abscess of mouth ICD-9: 528.3 ICD-10: K12.2 Active 03/16/2017 Unknown Periapical abscess without sinus ICD-9: 522.5 ICD-10: K04.7 Active 03/10/2017 Unknown Essential (primary) hypertension ICD-9: 401.9 ICD-10: I10 Active 07/15/2016 Unknown Drug induced constipation ICD-9: 564.09 ICD-10: K59.03 Active 07/15/2016 Unknown Encounter for screening for malignant neoplasm of prostate ICD-9: V76.44 ICD-10: Z12.5 Active 07/15/2016 Unknown Encounter for screening for other viral diseases ICD-9: V73.89 ICD-10: Z11.59 Active 07/15/2016 Unknown Impaired fasting glucose ICD-9: 790.21 ICD-10: R73.01 Active 07/15/2016 Unknown Mixed hyperlipidemia ICD-9: 272.4 ICD-10: E78.2 Active 11/05/2014 Unknown Depression Unknown Active 08/06/2015 Unknown Cervicalgia [...] Problems Condition Codes Effective Dates Condition Status Bilateral primary osteoarthritis of knee ICD-9: 715.96 ICD-10: M17.0 03/07/2016 Active Low back pain ICD-9: 724.2 ICD-10: M54.5 11/16/2016 Active Cellulitis and abscess of mouth ICD-9: 528.3 ICD-10: K12.2 03/16/2017 Active Periapical abscess without sinus ICD-9: 522.5 ICD-10: K04.7 03/10/2017 Active Essential (primary) hypertension ICD-9: 401.9 ICD-10: I10 07/15/2016 Active Drug induced constipation ICD-9: 564.09 ICD-10: K59.03 07/15/2016 Active Encounter for screening for malignant neoplasm of prostate ICD-9: V76.44 ICD-10: Z12.5 07/15/2016 Active Encounter for screening for other viral diseases ICD-9: V73.89 ICD-10: Z11.59 07/15/2016 Active Impaired fasting glucose ICD-9: 790.21 ICD-10: R73.01 07/15/2016 Active Mixed hyperlipidemia ICD-9: 272.4 ICD-10: E78.2 11/05/2014 Active Depression Unknown 08/06/2015 Active Cervicalgia ICD-9: [...] hydrocodone 10 mg-acetaminophen 325 mg tablet RxNorm: 401735 1 Tablet(s) PO QID as needed tooth abscess pain or back pain 05/15/2018 06/13/2018 Active Cymbalta 60 mg capsule,delayed release RxNorm: 865104 TAKE ONE CAPSULE BY MOUTH DAILY 05/14/2018 08/11/2018 Active diclofenac sodium 75 mg tablet,delayed release RxNorm: 950282 TAKE ONE TABLET BY MOUTH TWICE A DAY 04/23/2018 09/19/2018 Active Valium 5 mg tablet RxNorm: 809496 Tablet(s) TAKE ONE TABLET BY MOUTH EVERY NIGHT AT BEDTIME 04/18/2018 05/17/2018 Inactive hydrocodone 10 mg-acetaminophen 325 mg tablet RxNorm: 512643 1 Tablet(s) PO QID as needed tooth abscess pain or back pain 04/16/2018 05/14/2018 Inactive hydrocodone 10 mg-acetaminophen 325 mg tablet RxNorm: 251097 1 Tablet(s) PO QID as needed tooth abscess pain or back pain 03/15/2018 04/13/2018 Inactive Effexor 75 mg tablet RxNorm: 226835 TAKE ONE TABLET BY MOUTH DAILY 03/14/2018 08/10/2018 Active hydrocodone 10 mg-acetaminophen 325 mg tablet RxNorm: 281904 1 Tablet(s) PO QID as needed tooth abscess pain or back pain 02/16/2018 03/14/2018 Inactive simvastatin 40 mg tablet RxNorm: 101473 TAKE ONE TABLET BY MOUTH EVERY NIGHT AT BEDTIME 02/12/2018 06/11/2018 Active Cymbalta 60 mg capsule,delayed release RxNorm: 308420 TAKE ONE CAPSULE BY MOUTH DAILY 02/12/2018 05/12/2018 Inactive diclofenac sodium 75 mg tablet,delayed release RxNorm: 277811 TAKE ONE TABLET BY MOUTH TWICE A DAY 01/26/2018 04/22/2018 Inactive hydrocodone 10 mg-acetaminophen 325 mg tablet RxNorm: 079664 1 Tablet(s) PO QID as needed tooth abscess pain or back pain 01/18/2018 02/15/2018 Inactive Claritin-D 24 Hour 10 mg-240 mg tablet,extended release RxNorm: 5229287 Tablet(s) TAKE ONE TABLET BY MOUTH DAILY 01/08/2018 04/07/2018 Inactive enalapril 5 mg-hydrochlorothiazide 12.5 mg tablet RxNorm: 556365 TAKE ONE TABLET BY MOUTH DAILY 12/29/2017 05/27/2018 Active hydrocodone 10 mg-acetaminophen 325 mg tablet RxNorm: 662126 1 Tablet(s) PO QID as needed tooth abscess pain or back pain 12/21/2017 01/17/2018 Inactive Cymbalta 60 mg capsule,delayed release RxNorm: 959598 TAKE ONE CAPSULE BY MOUTH DAILY 12/15/2017 02/11/2018 Inactive hydrocodone 10 mg-acetaminophen 325 mg tablet RxNorm: 803091 1 Tablet(s) PO QID as needed tooth abscess pain or back pain 11/22/2017 11/21/2017 Inactive hydrocodone 10 mg-acetaminophen 325 mg tablet RxNorm: 305028 1 Tablet(s) PO QID as needed tooth abscess pain or back pain 11/22/2017 12/20/2017 Inactive Movantik 25 mg tablet RxNorm: 1017333 1 Tablet(s) PO QAM 201712/07/2017 Inactive hydrocodone 10 mg-acetaminophen 325 mg tablet RxNorm: 079633 1 Tablet(s) PO QID as needed tooth abscess pain or back pain 10/20/2017 11/18/2017 Inactive Effexor 75 mg tablet RxNorm: 213711 TAKE ONE TABLET BY MOUTH DAILY 10/10/2017 03/08/2018 Inactive diclofenac sodium 75 mg tablet,delayed release RxNorm: 662715 TAKE ONE TABLET BY MOUTH TWICE A DAY 10/02/2017 01/25/2018 Inactive hydrocodone 10 mg-acetaminophen 325 mg tablet RxNorm: 259926 1 Tablet(s) PO QID as needed tooth abscess pain or back pain 09/27/2017 10/26/2017 Inactive simvastatin 40 mg tablet RxNorm: 547751 TAKE ONE TABLET BY MOUTH EVERY NIGHT AT BEDTIME 09/13/2017 02/09/2018 Inactive Cymbalta 60 mg capsule,delayed release RxNorm: 263578 TAKE ONE CAPSULE BY MOUTH DAILY 09/13/2017 12/11/2017 Inactive Claritin-D 24 Hour 10 mg-240 mg tablet,extended release RxNorm: 3788057 Tablet(s) TAKE ONE TABLET BY MOUTH DAILY 08/28/2017 11/25/2017 Inactive Claritin-D 24 Hour 10 mg-240 mg tablet,extended release RxNorm: 0540176 TAKE ONE TABLET BY MOUTH DAILY 08/28/20172017 Inactive hydrocodone 10 mg-acetaminophen 325 mg tablet RxNorm: 936359 1 Tablet(s) PO QID as needed tooth abscess pain or back pain 08/25/2017 09/23/2017 Inactive Valium 5 mg tablet RxNorm: 254808 Tablet(s) TAKE ONE TABLET BY MOUTH EVERY NIGHT AT BEDTIME 08/07/2017 11/02/2017 Inactive Metanx (algal oil) 3 mg-35 mg-2 mg-90.314 mg capsule RxNorm: TAKE ONE CAPSULE BY MOUTH TWO TIMES DAILY 08/02/20172017 Inactive hydrocodone 10 mg-acetaminophen 325 mg tablet RxNorm: 763373 1 Tablet(s) PO QID as needed tooth abscess pain or back pain 07/27/2017 08/24/2017 Inactive enalapril 5 mg-hydrochlorothiazide 12.5 mg tablet RxNorm: 224308 TAKE ONE TABLET BY MOUTH DAILY 07/03/2017 12/28/2017 Inactive hydrocodone 10 mg-acetaminophen 325 mg tablet RxNorm: 483064 1 Tablet(s) PO QID as needed tooth abscess pain or back pain 06/23/2017 07/22/2017 Inactive hydrocodone 10 mg-acetaminophen 325 mg tablet RxNorm: 566029 1 Tablet(s) PO QID as needed tooth abscess pain or back pain 05/31/2017 06/22/2017 Inactive diclofenac sodium 75 mg tablet,delayed release RxNorm: 294963 TAKE ONE TABLET BY MOUTH TWICE A DAY 05/29/2017 09/25/2017 Inactive Valium 5 mg tablet RxNorm: 454610 Tablet(s) TAKE ONE TABLET BY MOUTH EVERY NIGHT AT BEDTIME 05/16/2017 04/17/2018 Inactive Cymbalta 60 mg capsule,delayed release RxNorm: 677636 TAKE ONE CAPSULE BY MOUTH DAILY 05/15/2017 09/11/2017 Inactive hydrocodone 10 mg-acetaminophen 325 mg tablet RxNorm: 412843 1 Tablet(s) PO QID as needed tooth abscess pain or back pain 2017 05/30/2017 Inactive Claritin-D 24 Hour 10 mg-240 mg tablet,extended release RxNorm: 0132489 Tablet(s) TAKE ONE TABLET BY MOUTH DAILY 04/19/2017 07/17/2017 Inactive hydrocodone 5 mg-acetaminophen 325 mg tablet RxNorm: 403957 1-2 Tablet(s) PO Q6 as needed 04/18/2017 05/02/2017 Inactive Effexor 75 mg tablet RxNorm: 795652 TAKE ONE TABLET BY MOUTH DAILY 04/13/2017 10/09/2017 Inactive Keflex 500 mg capsule RxNorm: 761132 1 Capsule(s) PO TID 201603/26/2017 Inactive clindamycin 300 mg capsule RxNorm: 360713 1 Capsule(s) PO TID 03/20/2017 03/26/2017 Inactive ceftriaxone 500 mg solution for injection RxNorm: 6487714 1 Gram(s) Inj 03/16/2017 03/16/2017 Inactive clindamycin 300 mg capsule RxNorm: 874146 1 Capsule(s) PO TID 03/16/2017 03/19/2017 Inactive hydrocodone 5 mg-acetaminophen 325 mg tablet RxNorm: 469297 1-2 Tablet(s) PO Q6 as needed 03/16/2017 03/16/2017 Inactive Keflex 500 mg capsule RxNorm: 250886 1 Capsule(s) PO TID 201603/19/2017 Inactive hydrocodone 10 mg-acetaminophen 325 mg tablet RxNorm: 407724 1 Tablet(s) PO QID as needed tooth abscess pain or back pain 03/16/2017 04/14/2017 Inactive simvastatin 40 mg tablet RxNorm: 457630 TAKE ONE TABLET BY MOUTH EVERY NIGHT AT BEDTIME 03/13/2017 09/08/2017 Inactive clindamycin 300 mg capsule RxNorm: 772759 1 Capsule(s) PO TID 03/10/2017 03/15/2017 Inactive hydrocodone 5 mg-acetaminophen 325 mg tablet RxNorm: 967860 1-2 Tablet(s) PO Q6 as needed 03/03/2017 03/15/2017 Inactive hydrocodone 5 mg-acetaminophen 325 mg tablet RxNorm: 316228 1 to 2 Tablet(s) PO Q6 as needed 02/15/2017 02/25/2017 Inactive hydrocodone 5 mg-acetaminophen 325 mg tablet RxNorm: 090937 1 to 2 Tablet(s) PO Q6 as needed 02/02/2017 02/12/2017 Inactive enalapril 5 mg-hydrochlorothiazide 12.5 mg tablet RxNorm: 064893 TAKE ONE TABLET BY MOUTH DAILY 01/23/2017 06/21/2017 Inactive diclofenac sodium 75 mg tablet,delayed release RxNorm: 406827 TAKE ONE TABLET BY MOUTH TWICE A DAY 01/23/2017 05/22/2017 Inactive hydrocodone 5 mg-acetaminophen 325 mg tablet RxNorm: 051900 1 to 2 Tablet(s) PO Q6 as needed 01/12/2017 01/22/2017 Inactive hydrocodone 5 mg-acetaminophen 325 mg tablet RxNorm: 534796 1 to 2 Tablet(s) PO Q6 as needed 12/29/2016 01/08/2017 Inactive hydrocodone 5 mg-acetaminophen 325 mg tablet RxNorm: 857927 1 to 2 Tablet(s) PO Q6 as needed 12/16/2016 12/26/2016 Inactive Cymbalta 60 mg capsule,delayed release RxNorm: 045513 TAKE ONE CAPSULE BY MOUTH DAILY 12/14/2016 05/12/2017 Inactive hydrocodone 5 mg-acetaminophen 325 mg tablet RxNorm: 170735 1 to 2 Tablet(s) PO Q6 as needed 11/30/2016 12/10/2016 Inactive Voltaren 1 % topical gel RxNorm: 700749 2 Gram(s) TOP QID bilateral SI joints 11/16/2016 01/14/2017 Inactive diclofenac sodium 75 mg tablet,delayed release RxNorm: 784846 TAKE ONE TABLET BY MOUTH TWICE A DAY 10/31/2016 01/22/2017 Inactive hydrocodone 5 mg-acetaminophen 325 mg tablet RxNorm: 816172 1 to 2 Tablet(s) PO Q6 as needed 10/27/2016 11/06/2016 Inactive hydrocodone 5 mg-acetaminophen 325 mg tablet RxNorm: 872795 1 to 2 Tablet(s) PO Q6 as needed 10/05/2016 10/15/2016 Inactive Effexor 75 mg tablet RxNorm: 729791 TAKE ONE TABLET BY MOUTH DAILY 10/03/2016 03/31/2017 Inactive Claritin-D 24 Hour 10 mg-240 mg tablet,extended release RxNorm: 2001698 Tablet(s) TAKE ONE TABLET BY MOUTH DAILY 09/26/2016 12/24/2016 Inactive hydrocodone 5 mg-acetaminophen 325 mg tablet RxNorm: 541465 1 to 2 Tablet(s) PO Q6 as needed 09/09/2016 09/19/2016 Inactive hydrocodone 5 mg-acetaminophen 325 mg tablet RxNorm: 354314 1 to 2 Tablet(s) PO Q6 as needed 08/19/2016 08/29/2016 Inactive hydrocodone 5 mg-acetaminophen 325 mg tablet RxNorm: 699846 1 to 2 Tablet(s) PO Q6 as needed 08/01/2016 08/11/2016 Inactive enalapril 5 mg-hydrochlorothiazide 12.5 mg tablet RxNorm: 966213 Tablet(s) TAKE ONE TABLET BY MOUTH DAILY 07/18/201601/13 Inactive Movantik 25 mg tablet RxNorm: 2883480 1 Tablet(s) PO QAM 201611/07/2017 Inactive hydrocodone 5 mg-acetaminophen 325 mg tablet RxNorm: 394437 1 to 2 Tablet(s) PO Q6 as needed 07/15/2016 07/25/2016 Inactive diclofenac sodium 75 mg tablet,delayed release RxNorm: 769666 TAKE ONE TABLET BY MOUTH TWICE A DAY 06/27/2016 10/24/2016 Inactive hydrocodone 5 mg-acetaminophen 325 mg tablet RxNorm: 513999 1 to 2 Tablet(s) PO Q6 as needed 06/16/2016 06/26/2016 Inactive Claritin-D 24 Hour 10 mg-240 mg tablet,extended release RxNorm: 0932404 Tablet(s) TAKE ONE TABLET BY MOUTH DAILY 06/10/2016 08/08/2016 Inactive Metanx (algal oil) 3 mg-35 mg-2 mg-90.314 mg capsule RxNorm: Capsule(s) TAKE ONE CAPSULE BY MOUTH TWO TIMES DAILY 06/02/2016 05/27/2017 Inactive hydrocodone 5 mg-acetaminophen 325 mg tablet RxNorm: 228826 1 to 2 Tablet(s) PO Q6 as needed 05/27/2016 06/06/2016 Inactive Valium 5 mg tablet RxNorm: 034096 Tablet(s) TAKE ONE TABLET BY MOUTH EVERY NIGHT AT BEDTIME 05/16/2016 07/14/2016 Inactive Metanx (algal oil) 3 mg-35 mg-2 mg-90.314 mg capsule RxNorm: TAKE ONE CAPSULE BY MOUTH TWO TIMES DAILY 05/11/20162015 Inactive hydrocodone 5 mg-acetaminophen 325 mg tablet RxNorm: 827467 1 to 2 Tablet(s) PO Q6 as needed 04/25/2016 05/02/2016 Inactive [SAVINGS FOR NON-COVERED DRUGS -- BIN: [id number], PCN: ASPROD1, Group: XXXXX, ID# [id number], Questions: . THIS IS NOT INSURANCE.] hydrocodone 5 mg-acetaminophen 325 mg tablet RxNorm: 594329 1 to 2 Tablet(s) PO Q6 as needed 04/01/2016 04/08/2016 Inactive [SAVINGS FOR NON-COVERED DRUGS -- BIN: 251728, PCN: ASPROD1, Group: XXXXX, ID# [id number], Questions: . THIS IS NOT INSURANCE.] diclofenac sodium 75 mg tablet,delayed release RxNorm: 666655 TAKE ONE TABLET BY MOUTH TWICE A DAY 03/21/2016 06/18/2016 Inactive enalapril 5 mg-hydrochlorothiazide 12.5 mg tablet RxNorm: 875702 TAKE ONE TABLET BY MOUTH DAILY 03/21/2016 07/17/2016 Inactive Claritin-D 24 Hour 10 mg-240 mg tablet,extended release RxNorm: 0391785 Tablet(s) TAKE ONE TABLET BY MOUTH DAILY 03/11/2016 06/08/2016 Inactive hydrocodone 5 mg-acetaminophen 325 mg tablet RxNorm: 967184 1 to 2 Tablet(s) PO Q6 as needed 03/08/2016 03/15/2016 Inactive [SAVINGS FOR NON-COVERED DRUGS -- BIN: 042697, PCN: ASPROD1, Group: XXXXX, ID# [id number], Questions: . THIS IS NOT INSURANCE.] simvastatin 40 mg tablet RxNorm: 529526 1 Tablet(s) PO QHS 10/03/2016 Inactive Effexor 75 mg tablet RxNorm: 863993 Tablet(s) TAKE ONE TABLET BY MOUTH DAILY 03/08/2016 10/02/2016 Inactive simvastatin 40 mg tablet RxNorm: 352739 TAKE ONE TABLET BY MOUTH EVERY NIGHT AT BEDTIME 02/05/2016 05/04/2016 Inactive Request already responded to by other means (e.g. phone or fax) hydrocodone 5 mg-acetaminophen 325 mg tablet RxNorm: 357461 1 to 2 Tablet(s) PO Q6 as needed 02/02/2016 02/09/2016 Inactive [SAVINGS FOR NON-COVERED DRUGS -- BIN: [id number], PCN: ASPROD1, Group: XXXXX, ID# [id number], Questions: . THIS IS NOT INSURANCE.] simvastatin 40 mg tablet RxNorm: 028022 1 Tablet(s) PO QHS 03/07/2016 Inactive Cymbalta 60 mg capsule,delayed release RxNorm: 457939 TAKE ONE CAPSULE BY MOUTH DAILY 01/14/2016 06/11/2016 Inactive Request already responded to by other means ( e.g. phone or fax) Claritin-D 24 Hour 10 mg-240 mg tablet,extended release RxNorm: 5296152 Tablet(s) TAKE ONE TABLET BY MOUTH DAILY 01/14/2016 02/12/2016 Inactive hydrocodone 5 mg-acetaminophen 325 mg tablet RxNorm: 624083 1 to 2 Tablet(s) PO Q6 as needed 01/14/2016 01/21/2016 Inactive [SAVINGS FOR NON-COVERED DRUGS -- BIN: 927103, PCN: ASPROD1, Group: XXXXX, ID# [id number], Questions: . THIS IS NOT INSURANCE.] Claritin-D 24 Hour 10 mg-240 mg tablet,extended release RxNorm: 0617463 TAKE ONE TABLET BY MOUTH DAILY 01/14/20162015 Inactive Cymbalta 60 mg capsule,delayed release RxNorm: 589706 Capsule(s) TAKE ONE CAPSULE BY MOUTH DAILY 01/12/2016 01/13/2016 Inactive Claritin-D 24 Hour 10 mg-240 mg tablet,extended release RxNorm: 0409654 TAKE ONE TABLET BY MOUTH DAILY 01/11/20162015 Inactive Claritin-D 24 Hour 10 mg-240 mg tablet,extended release RxNorm: 4785748 TAKE ONE TABLET BY MOUTH DAILY 01/11/20162015 Inactive Claritin-D 24 Hour 10 mg-240 mg tablet,extended release RxNorm: 0633535 TAKE ONE TABLET BY MOUTH DAILY 01/07/20162015 Inactive Effexor 75 mg tablet RxNorm: 721902 TAKE ONE TABLET BY MOUTH DAILY 01/01/2016 02/29/2016 Inactive diclofenac sodium 75 mg tablet,delayed release RxNorm: 977804 TAKE ONE TABLET BY MOUTH TWICE A DAY 12/23/2015 03/20/2016 Inactive enalapril 5 mg-hydrochlorothiazide 12.5 mg tablet RxNorm: 377738 TAKE ONE TABLET BY MOUTH DAILY 12/23/2015 03/20/2016 Inactive hydrocodone 5 mg-acetaminophen 325 mg tablet RxNorm: 098177 1 to 2 Tablet(s) PO Q6 as needed 12/22/2015 12/29/2015 Inactive [SAVINGS FOR NON-COVERED DRUGS -- BIN: 164741, PCN: ASPROD1, Group: XXXXX, ID# [id number], Questions: . THIS IS NOT INSURANCE.] Valium 5 mg tablet RxNorm: 840138 Tablet(s) TAKE ONE TABLET BY MOUTH EVERY NIGHT AT BEDTIME 12/01/2015 04/17/2018 Inactive hydrocodone 5 mg-acetaminophen 325 mg tablet RxNorm: 472150 1 to 2 Tablet(s) PO Q6 as needed 11/30/2015 12/07/2015 Inactive [SAVINGS FOR NON-COVERED DRUGS -- BIN: 393202, PCN: ASPROD1, Group: XXXXX, ID# [id number], Questions: . THIS IS NOT INSURANCE.] hydrocodone 5 mg-acetaminophen 325 mg tablet RxNorm: 757481 1 to 2 Tablet(s) PO Q6 as needed 11/09/2015 11/16/2015 Inactive [SAVINGS FOR NON-COVERED DRUGS -- BIN: 177063, PCN: ASPROD1, Group: XXXXX, ID# [id number], Questions: . THIS IS NOT INSURANCE.] Claritin-D 24 Hour 10 mg-240 mg tablet,extended release RxNorm: 1771061 Tablet(s) TAKE ONE TABLET BY MOUTH DAILY 11/05/2015 11/04/2015 Inactive Claritin-D 24 Hour 10 mg-240 mg tablet,extended release RxNorm: 1692001 Tablet(s) TAKE ONE TABLET BY MOUTH DAILY 11/05/2015 01/06/2016 Inactive Claritin-D 24 Hour 10 mg-240 mg tablet,extended release RxNorm: 9554535 Tablet(s) TAKE ONE TABLET BY MOUTH DAILY 10/30/2015 03/10/2016 Inactive hydrocodone 5 mg-acetaminophen 325 mg tablet RxNorm: 411549 1 to 2 Tablet(s) PO Q6 as needed 10/09/2015 10/16/2015 Inactive [SAVINGS FOR NON-COVERED DRUGS -- BIN: 081396, PCN: ASPROD1, Group: XXXXX, ID# [id number], Questions: . THIS IS NOT INSURANCE.] Effexor 75 mg tablet RxNorm: 355710 TAKE ONE TABLET BY MOUTH DAILY 10/05/2015 12/31/2015 Inactive simvastatin 40 mg tablet RxNorm: 433983 1 Tablet(s) PO QHS 01/31/2016 Inactive hydrocodone 5 mg-acetaminophen 325 mg tablet RxNorm: 312273 1 to 2 Tablet(s) PO Q6 as needed 09/15/2015 09/22/2015 Inactive [SAVINGS FOR NON-COVERED DRUGS -- BIN: [id number], PCN: ASPROD1, Group: XXXXX, ID# [id number], Questions: . THIS IS NOT INSURANCE.] Valium 5 mg tablet RxNorm: 303336 Tablet(s) TAKE ONE TABLET BY MOUTH EVERY NIGHT AT BEDTIME 09/08/2015 04/17/2018 Inactive enalapril 5 mg-hydrochlorothiazide 12.5 mg tablet RxNorm: 839056 Tablet(s) TAKE ONE TABLET BY MOUTH DAILY 08/21/201512/17 Inactive diclofenac sodium 75 mg tablet,delayed release RxNorm: 328690 1 Tablet(s) PO BID 08/21/2015 12/18/2015 Inactive hydrocodone 5 mg-acetaminophen 325 mg tablet RxNorm: 689873 1 to 2 Tablet(s) PO Q6 as needed 08/13/2015 08/20/2015 Inactive [SAVINGS FOR NON-COVERED DRUGS -- BIN: 345456, PCN: ASPROD1, Group: XXXXX, ID# [id number], Questions: . THIS IS NOT INSURANCE.] clindamycin 300 mg capsule RxNorm: 183937 1 Capsule(s) PO TID 08/06/2015 08/10/2015 Inactive Claritin-D 24 Hour 10 mg-240 mg tablet,extended release RxNorm: 0165674 Tablet(s) TAKE ONE TABLET BY MOUTH DAILY 07/23/2015 10/20/2015 Inactive hydrocodone 5 mg-acetaminophen 325 mg tablet RxNorm: 015954 1 to 2 Tablet(s) PO Q6 as needed 07/23/2015 07/30/2015 Inactive [SAVINGS FOR NON-COVERED DRUGS -- BIN: 561616, PCN: ASPROD1, Group: XXXXX, ID# [id number], Questions: . THIS IS NOT INSURANCE.] Claritin-D 24 Hour 10 mg-240 mg tablet,extended release RxNorm: 9710551 TAKE ONE TABLET BY MOUTH DAILY 07/22/20152015 Inactive Valium 5 mg tablet RxNorm: 784576 Tablet(s) TAKE ONE TABLET BY MOUTH EVERY NIGHT AT BEDTIME 07/22/2015 04/17/2018 Inactive Claritin-D 24 Hour 10 mg-240 mg tablet,extended release RxNorm: 2812942 TAKE ONE TABLET BY MOUTH DAILY 07/20/20152015 Inactive Cymbalta 60 mg capsule,delayed release RxNorm: 508895 TAKE ONE CAPSULE BY MOUTH DAILY 07/20/2015 01/11/2016 Inactive cyclobenzaprine 10 mg tablet RxNorm: 290193 TAKE ONE TABLET BY MOUTH AT BEDTIME NEEDED 07/06/2015 08/04/2015 Inactive hydrocodone 5 mg-acetaminophen 325 mg tablet RxNorm: 812918 1 to 2 Tablet(s) PO Q6 as needed 06/23/2015 06/30/2015 Inactive [SAVINGS FOR NON-COVERED DRUGS -- BIN: 858044, PCN: ASPROD1, Group: XXXXX, ID# [id number], Questions: . THIS IS NOT INSURANCE.] Effexor 75 mg tablet RxNorm: 170874 1 Tablet(s) PO daily 201409/28/2015 Inactive hydrocodone 5 mg-acetaminophen 325 mg tablet RxNorm: 184960 1 to 2 Tablet(s) PO Q6 as needed 05/22/2015 05/29/2015 Inactive [SAVINGS FOR NON-COVERED DRUGS -- BIN: 566814, PCN: ASPROD1, Group: XXXXX, ID# [id number], Questions: . THIS IS NOT INSURANCE.] Valium 5 mg tablet RxNorm: 037316 Tablet(s) TAKE ONE TABLET BY MOUTH EVERY NIGHT AT BEDTIME 05/22/2015 04/17/2018 Inactive diclofenac sodium 75 mg tablet,delayed release RxNorm: 030159 1 Tablet(s) PO BID 05/04/2015 08/20/2015 Inactive Metanx (algal oil) 3 mg-35 mg-2 mg-90.314 mg capsule RxNorm: 1 Capsule(s) PO BID 05/04/2015 04/27/2016 Inactive enalapril 5 mg-hydrochlorothiazide 12.5 mg tablet RxNorm: 044729 TAKE ONE TABLET BY MOUTH DAILY 04/27/2015 08/20/2015 Inactive hydrocodone 5 mg-acetaminophen 325 mg tablet RxNorm: 739542 1 to 2 Tablet(s) PO Q6 as needed 04/27/2015 05/04/2015 Inactive [SAVINGS FOR NON-COVERED DRUGS -- BIN: 802748, PCN: ASPROD1, Group: XXXXX, ID# [id number], Questions: . THIS IS NOT INSURANCE.] hydrocodone 5 mg-acetaminophen 325 mg tablet RxNorm: 050816 1 to 2 Tablet(s) PO Q6 as needed 03/26/2015 04/02/2015 Inactive [SAVINGS FOR NON-COVERED DRUGS -- BIN: 166183, PCN: ASPROD1, Group: XXXXX, ID# [id number], Questions: . THIS IS NOT INSURANCE.] Claritin-D 24 Hour 10 mg-240 mg tablet,extended release RxNorm: 2847352 Tablet(s) TAKE ONE TABLET BY MOUTH DAILY 03/24/2015 07/19/2015 Inactive Valium 5 mg tablet RxNorm: 350895 TAKE ONE TABLET BY MOUTH EVERY NIGHT AT BEDTIME 03/05/2015 04/03/2015 Inactive Valium 5 mg tablet RxNorm: 576695 1 Tablet(s) PO daily as needed 03/05/2015 03/05/2015 Inactive [SAVINGS FOR NON-COVERED DRUGS -- BIN:788090, PCN: ASPROD1, Group : XXXXX, ID# [id number], Questions: . THIS IS NOT INSURANCE.] hydrocodone 5 mg-acetaminophen 325 mg tablet RxNorm: 626677 1 to 2 Tablet(s) PO Q6 as needed 02/18/2015 02/25/2015 Inactive [SAVINGS FOR NON-COVERED DRUGS -- BIN: 347450, PCN: ASPROD1, Group: XXXXX, ID# [id number], Questions: . THIS IS NOT INSURANCE.] enalapril 5 mg-hydrochlorothiazide 12.5 mg tablet RxNorm: 958281 1 Tablet(s) PO daily 01/30/2015 04/26/2015 Inactive hydrocodone 5 mg-acetaminophen 325 mg tablet RxNorm: 004390 1 to 2 Tablet(s) PO Q6 as needed 01/22/2015 01/29/2015 Inactive [SAVINGS FOR NON-COVERED DRUGS -- BIN: 295108, PCN: ASPROD1, Group: XXXXX, ID# [id number], Questions: . THIS IS NOT INSURANCE.] Claritin-D 24 Hour 10 mg-240 mg tablet,extended release RxNorm: 0271630 TAKE ONE TABLET BY MOUTH DAILY 01/15/20152014 Inactive Claritin-D 24 Hour 10 mg-240 mg tablet,extended release RxNorm: 5853049 Tablet(s) TAKE ONE TABLET BY MOUTH DAILY 01/15/2015 01/14/2015 Inactive cyclobenzaprine 10 mg tablet RxNorm: 084272 1 Tablet(s) PO QHS as needed 12/29/2014 01/27/2015 Inactive hydrocodone 5 mg-acetaminophen 325 mg tablet RxNorm: 397895 1 to 2 Tablet(s) PO Q6 as needed 12/23/2014 12/30/2014 Inactive [SAVINGS FOR NON-COVERED DRUGS -- BIN: 460765, PCN: ASPROD1, Group: XXXXX, ID# [id number], Questions: . THIS IS NOT INSURANCE.] Cymbalta 60 mg capsule,delayed release RxNorm: 656566 1 Capsule(s) PO daily 12/18/2014 07/15/2015 Inactive Claritin-D 24 Hour 10 mg-240 mg tablet,extended release RxNorm: 0283321 TAKE ONE TABLET BY MOUTH DAILY 12/15/20142014 Inactive Claritin-D 24 Hour 10 mg-240 mg tablet,extended release RxNorm: 7110823 TAKE ONE TABLET BY MOUTH DAILY 12/15/20142014 Inactive Claritin-D 24 Hour 10 mg-240 mg tablet,extended release RxNorm: 0468937 TAKE ONE TABLET BY MOUTH DAILY 12/15/20142014 Inactive Claritin-D 24 Hour 10 mg-240 mg tablet,extended release RxNorm: 5920014 1 Tablet(s ) PO daily 12/10/2014 12/14/2014 Inactive hydrocodone 5 mg-acetaminophen 325 mg tablet RxNorm: 543859 1 to 2 Tablet(s) PO Q6 as needed 12/08/2014 12/22/2014 Inactive [SAVINGS FOR NON-COVERED DRUGS -- BIN: 481894, PCN: ASPROD1, Group: XXXXX, ID# [id number], Questions: . THIS IS NOT INSURANCE.] hydrocodone 5 mg-acetaminophen 325 mg tablet RxNorm: 123667 1 to 2 Tablet(s) PO Q6 as needed 11/25/2014 12/07/2014 Inactive [SAVINGS FOR NON-COVERED DRUGS -- BIN: 326790, PCN: ASPROD1, Group: XXXXX, ID# [id number], Questions: . THIS IS NOT INSURANCE.] Claritin-D 24 Hour 10 mg-240 mg tablet,extended release RxNorm: 5170739 1 Tablet(s ) PO daily 11/07/2014 12/06/2014 Inactive Claritin-D 24 Hour 10 mg-240 mg tablet,extended release RxNorm: 2703726 1 Tablet(s ) PO daily 11/07/2014 11/06/2014 Inactive hydrocodone 5 mg-acetaminophen 325 mg tablet RxNorm: 008542 1 to 2 Tablet(s) PO Q6 as needed 11/03/2014 11/24/2014 Inactive [SAVINGS FOR NON-COVERED DRUGS -- BIN: 081369, PCN: ASPROD1, Group: XXXXX, ID# [id number], Questions: . THIS IS NOT INSURANCE.] Valium 5 mg tablet RxNorm: 382487 1 Tablet(s) PO daily as needed 10/23/2014 12/20/2014 Inactive [SAVINGS FOR NON-COVERED DRUGS -- BIN:144647, PCN: ASPROD1, Group : XXXXX, ID# [id number], Questions: . THIS IS NOT INSURANCE.] Cialis 5 mg tablet RxNorm: 545294 1/2 Tablet(s) PO daily No Stop Date Active [SAVINGS FOR NON-COVERED DRUGS -- BIN:090769, PCN: ASPROD1, Group: XXXXX, ID# [id number], Questions: . THIS IS NOT INSURANCE.] aspirin 81 mg tablet RxNorm: 753011 1 Tablet(s) PO daily No Start Date Active Effexor 75 mg tablet RxNorm: 759117 1 Tablet(s) PO daily No Start Date 05/31/2015 Inactive Valium 5 mg tablet RxNorm: 844494 1 Tablet(s) PO daily as needed No Start Date 10/22/2014 Inactive simvastatin 40 mg tablet RxNorm: 808821 1 Tablet(s) PO QHS No Start Date 10/04/2015 Inactive enalapril 5 mg-hydrochlorothiazide 12.5 mg tablet RxNorm: 529633 oral No Start Date 01/29/2015 Inactive cyclobenzaprine 10 mg tablet RxNorm: 641079 1 Tablet(s) PO as needed No Start Date 12/28/2014 Inactive Cymbalta 60 mg capsule,delayed release RxNorm: 334913 1 Capsule(s) PO daily No Start Date 12/17/2014 Inactive hydrocodone 5 mg-acetaminophen 325 mg tablet RxNorm: 781955 1 to 2 Tablet(s) PO Q6 as needed No Start Date 11/02/2014 Inactive diclofenac sodium 75 mg tablet,delayed release RxNorm: 628732 1 Tablet(s) PO BID No Start Date 2015 Inactive Cialis 5 mg tablet RxNorm: 813998 1 Tablet(s) PO daily No Start Date 10/12/2014 Inactive Medication Administered Medication Codes Instructions Start Date Status ceftriaxone 500 mg solution for injection RxNorm: 8776219 1Gram 03/16/2017 No longer Active Immunizations No Immunization data Assessments Condition Codes Effective Dates Bilateral primary osteoarthritis of knee ICD-10: M17.0 ICD-9: 715.96 05/24/2018 Low back pain ICD-10: M54.5 ICD-9: 724.2 05/24/2018 Periapical abscess without sinus ICD-10: K04.7 ICD-9: 522.5 03/20/2017 Cellulitis and abscess of mouth ICD-10: K12.2 ICD-9: 528.3 03/20/2017 Essential (primary) hypertension ICD-10: I10 ICD-9: 401.9 11/16/2016 Impaired fasting glucose ICD-10: R73.01 ICD-9: 790.21 07/15/2016 Mixed hyperlipidemia ICD-10: E78.2 ICD-9: 272.4 07/15/2016 Drug induced constipation ICD-10: K59.03 ICD-9: 564.09 07/15/2016 Encounter for screening for malignant neoplasm of prostate ICD-10: Z12.5 ICD-9: V76.44 07/15/2016 Encounter for screening for other viral [...] Antibody With Reflex For Hcv Antibody Verificat 450035 HEPATITIS C ANTIBODY NEGATIVE 07/19/2016 Lipid Ord30 CHOL 180 mg/dL 07/18/2016 Lipid Ord30 HDL 56.0 mg/dl 07/18/2016 Lipid Ord30 TRIG 153 mg/dL 07/18/2016 Lipid Ord30 LDL 93 mg/dL 07/18/2016 Lipid Ord30 C/HDL 3.2 Ratio 07/18/2016 Comp Metabolic Npd515 NA 136 mEq/L 07/18/2016 Comp Metabolic Exp285 K 4.3 mEq/L 07/18/2016 Comp Metabolic Stt863 CL 100 mEq/L 07/18/2016 Comp Metabolic Mig106 CO2 30.0 mEq/L 07/18/2016 Comp Metabolic Cjm322 ANION GAP 10 07/18/2016 Comp Metabolic Jjh479 GLUCOSE 104 mg/dL 07/18/2016 Comp Metabolic Olt554 Creat 1.0 mg/dL 07/18/2016 Comp Metabolic Sas178 eGFR 81 ml/min/1.73m2 07/18/2016 Comp Metabolic Ljx846 BUN 21 mg/dL 07/18/2016 Comp Metabolic Yjd552 B/C Ratio 20.8 Ratio 07/18/2016 Comp Metabolic Ayx677 CALCIUM 9.5 mg/dL 07/18/2016 Comp Metabolic Sie205 ALK PHOS 45 U/L 07/18/2016 Comp Metabolic Xnm882 AST(SGOT) 26 U/L 07/18/2016 Comp Metabolic Iyt309 ALT(SGPT) 52 U/L 07/18/2016 Comp Metabolic Wdr717 BILI T 0.8 mg/dL 07/18/2016 Comp Metabolic Jkj684 ALBUMIN 4.7 g/dL 07/18/2016 Comp Metabolic Eos657 TPRO 6.9 g/dL 07/18/2016 Comp Metabolic Ady832 GLOB 2.2 g/dL 07/18/2016 Comp Metabolic Gqe607 A/G Ratio 2.2 Ratio 07/18/2016 Comp Metabolic Dtv007 Osmo 275 mOsmo 07/18/2016 Tsh Ord6 hTSH II 1.99 uIU/mL 07/18/2016 Cbc With Differential Ord2 WBC 4.66 K/ul 07/18/2016 Cbc With Differential Ord2 RBC 4.51 M/ul 07/18/2016 Cbc With Differential Ord2 HGB 14.2 g/dl 07/18/2016 Cbc With Differential Ord2 HCT 42.4 % 07/18/2016 Cbc With Differential Ord2 Neut% 70.6 % 07/18/2016 Cbc With Differential Ord2 MCV 94.0 fl 07/18/2016 Cbc With Differential Ord2 Lymph% 14.8 % 07/18/2016 Cbc With Differential Ord2 [place]% 11.2 % 07/18/2016 Cbc With Differential Ord2 [...] 0.69 K/ul 07/18/2016 Cbc With Differential Ord2 [place] ABS# 0.5 K/ul 07/18/2016 Cbc With Differential Ord2 Eos ABS# 0.2 K/ul 07/18/2016 Cbc With Differential Ord2 Baso ABS# 0.0 K/ul 07/18/2016 %Hba1C Qcn887 % HbA1c 49283-9 5.8 % 07/18/2016 %Hba1C Bvi074 Gluc Ave 120 mg/dL 07/18/2016 Total Psa Ord10 PSA 0.75 ng/mL 07/18/2016 Review of Systems System Result Effective [...] Code : 8480-6 BMI: 32.7 Code : 37900-4 Heart Rate 1 : 85 bpm Height: 5'10" SpO2: 99% Weight: 228 lbs 10/20/2017 Blood Pressure 1: 138/78 Code : 8480-6 BMI: 32.4 Code : 39709-3 Heart Rate 1 : 80 bpm Height: 5'10" SpO2: 98% Weight: 226 lbs 03/20/2017 Blood Pressure 1: 134/72 Code : 8480-6 Heart Rate 1: 87 bpm Height: 5'10" SpO2: 97% 03/16/2017 Blood Pressure 1: 150/84 Code : 8480-6 BMI: 32.4 Code : 38629-9 Heart Rate 1 : 98 bpm Height: 5'10" SpO2: 97% Weight: 226 lbs 03/10/2017 Blood Pressure 1: 140/72 Code : 8480-6 BMI: 32.4 Code : 50187-8 Heart Rate 1 : 81 bpm Height: 5'10" SpO2: 97% Weight: 226 lbs 11/16/2016 Blood Pressure 1: 142/80 Code : 8480-6 BMI: 32.1 Code : 48264-5 Heart Rate 1 : 95 bpm Height: 5'10" SpO2: 98% Weight: 224 lbs 07/15/2016 Blood Pressure 1: 130/78 Code : 8480-6 BMI: 32.0 Code : 65950-5 Heart Rate 1 : 85 bpm Height: 5'10" SpO2: 95% Weight: 223 lbs 03/08/2016 Blood Pressure 1: 138/84 Code : 8480-6 BMI: 31.6 Code : 03804-6 Heart Rate 1 : 86 bpm Height: 5'10" SpO2: 98% Weight: 220 lbs 11/26/2015 Blood Pressure 1: 132/82 Code : 8480-6 BMI: 31.6 Code : 24305-6 Height: 5'10 " Weight: 220 lbs 08/06/2015 Blood Pressure 1: 138/74 Code : 8480-6 BMI: 31.0 Code : 11045-1 Heart Rate 1 : 87 bpm Height: 5'10" SpO2: 95% Weight: 216 lbs 05/04/2015 Blood Pressure 1: 128/80 Code : 8480-6 BMI: 33.6 Code : 54044-5 Heart Rate 1 : 94 bpm Height: 5'10" SpO2: 97% Weight: 234 lbs 11/06/2014 Blood Pressure 1: 132/92 Code : 8480-6 BMI: 31.1 Code : 18292-7 Heart Rate 1 : 88 bpm Height: [...] M54.5] [facility] CPT-4 : 90407 05/24/2018 [id number] EST. PATIENT, LEVEL IV Diagnosis: Bilateral primary osteoarthritis of knee[ICD10: M17.0] [facility] CPT-4: 27704 10/20/2017 [id number] EST. PATIENT, LEVEL IV Diagnosis: Periapical abscess without sinus[ICD10: K04.7] Diagnosis: Cellulitis and abscess of mouth[ICD10: K12.2] [facility] CPT-4: 00996 03/20/2017 ([id number]) 79448 EST. PATIENT, LEVEL III Diagnosis: Periapical abscess without sinus[ICD10: K04.7] Diagnosis: Cellulitis and abscess of mouth[ICD10: K12.2] Mayte Mcfarlane MD, [facility] CPT-4: 98853 03/16/2017 ([id number]) 49673 EST. PATIENT, LEVEL III Diagnosis: Periapical abscess without sinus[ICD10: K04.7] Niya Mcfarlane MD, [facility] CPT-4: 60803 03/10/2017 ([id number]) 39408 EST. PATIENT, LEVEL IV Diagnosis: Essential (primary) hypertension[ICD10: I10] Diagnosis: Low back pain[ICD10: M54.5] Mayte Mcfarlane MD, [facility] CPT- 4: 90187 11/16/2016 ([id number]) 48529 EST. PATIENT, LEVEL IV Diagnosis: Mixed hyperlipidemia[ICD10: E78.2] Diagnosis: Essential (primary) hypertension[ICD10: I10] Diagnosis: Impaired fasting glucose[ICD10: R73.01] Diagnosis: Encounter for screening for malignant neoplasm of prostate[ICD10: Z12.5] Diagnosis: Encounter for screening for other viral diseases[ICD10: Z11.59] Diagnosis: Drug induced constipation[ICD10: K59.03] Niya Mcfarlane MD, [facility] CPT-4: 88432 07/15/2016 ([id number]) 73039 EST. PATIENT, LEVEL III Diagnosis: Bilateral primary osteoarthritis of knee[ICD10: M17.0] Niya Mcfarlane MD, [facility] CPT-4: 95443 03/08/2016 ([id number]) 47206 EST. PATIENT, LEVEL III Diagnosis: Bilateral primary osteoarthritis of knee[ICD10: M17.0] Niya Mcfarlane MD, [facility] CPT-4: 48275 11/26/2015 13790 EST. PATIENT, LEVEL IV Diagnosis: Cervicalgia[ICD10: M54.2] Diagnosis: Other specified polyneuropathies[ICD10: G62.89] Diagnosis: Dental caries, unspecified[ICD10: K02.9] Diagnosis: Major depressive disorder, single episode, unspecified[ICD10: F32.9] Niya Mcfarlane MD, [facility] CPT-4: 20772 08/06/2015 ([id number]) 01946 EST. PATIENT, LEVEL IV Diagnosis: Mixed hyperlipidemia[ICD10: E78.2] Diagnosis: Idiopathic gout, unspecified ankle and foot[ICD10: M10.079] Diagnosis: Other specified polyneuropathies[ICD10: G62.89] Diagnosis: Morbid (severe) obesity due to excess calories[ICD10: E66.01] [facility] CPT-4: 62415 05/04/2015 ([id number]) OFFICE VISIT, NEW - LEVEL 4 Diagnosis: GOUT[ICD9: 274.9] Diagnosis: Sinusitis, acute[ICD9: 461.9] Diagnosis: HYPERLIPIDEMIA[ICD9: 272.4] [facility] CPT- 4: 29266 11/06/2014 Plan of Care Planned Activity Notes Codes Status Date Visit Plan: OA knees - pt has chronic pain - has been maintained on current medications, has not sought out other medications, only uses PRN pain medications as directed, and understands the consequences of over- medication. 05/24/2018 Appointment: Julianna Stanford WPtel: [facility] [place] (15 min) Moderate 05/24/2018 Patient Education: Patient Medication Summary Completed 05/24/2018 Patient Education: Back Pain Completed 05/24/2018 Appointment: Niya Bryant WPtel: [phone] [place] (15 min) Moderate 05/21/2018 Visit Plan: OA knees - pt has chronic pain - has been maintained on current medications, has not sought out other medications, only uses PRN pain medications as directed, and understands the consequences of over- medication. 10/20/2017 Appointment: Julianna Stanford WPtel: [facility] [place] (30 min) Complex 10/20/2017 Patient Education: Patient Medication Summary Completed 10/20/2017 Appointment: Julianna Stanford WPtel: [facility] [place] (15 min) Moderate 10/19/2017 Visit Plan: Cellulitis/Abscess - continue with current treatment course - restart keflex as patient had improvement of symptoms on the rocephin. continue with clindamycin and increase probiotic to tid dosing. Keep follow up appointment with Dr. Hendrix on 03/28. Notify clinic with any changes or concerns, or with any questions. 03/20/2017 [facility] [phone] [facility] ([facility] min[facility] Complex 03/20/2017 Patient Education: Patient [...] dosing. 03/16/2017 App[facility]ment[phone] [facility] ([facility] min) Moderate 03/16/2017 Patient Education: Patient Medication Summary Completed 03/16/2017 Visit Plan: Abscessed tooth-discussed with Dr Mcfarlane- plan for IV abx x 3 days-will start with clindamycin and rocephin today and continue rocephin Monday and Monday-will increase dose of oral clindamycin - rx sent to patient's pharmacy and instructed on use. Patient verbalized understanding of plan. 03/10/2017 Appointment: [facility] [phone] [phone] [place] (15 min) Moderate 03/10/2017 Patient Education: [...] worsen. 11/16/2016 Appointment: Mayte Mcfarlane WPtel: [phone] [facility] (15 min) Moderate 11/16/2016 Patient Education: [...] hgb a1c 07/15/2016 Appointment: Niya Bryant WPtel: [phone] (15 min) Moderate 07/15/2016 Patient Education: Patient Medication Summary Completed 07/15/2016 Patient Education: Obesity Completed 07/15/2016 Patient Education: Hypertension Completed 07/15/2016 Visit Plan: OA knees - pt has chronic pain - has been maintained on current medications, has not sought out other medications, only uses PRN pain medications as directed, and understands the consequences of over- medication. 03/08/2016 Appointment: Niya Bryant WPtel: [phone] (30 min) Complex 03/08/2016 Patient Education: [...] of plan. 11/26/2015 Appointment: Niya Bryant WPtel: [phone] (30 min) Complex 11/26/2015 Patient Education: [...] medications. 11/06/2014 Appointment: [facility] [phone] [facility] [place] ([place] New Patient 11/06/2014 Patient [...]
--- OUTSIDE RECORDS SUMMARY | 2018-07-11 13:00 | XMS REPORT | CCD ---
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 Name Role Phone PP Unavailable CCM Unavailable Summary Purpose Interface Exchange Insurance Providers Payer name Policy type / Coverage type Covered constitution party ID Effective Begin Date Effective End Date Blue Cross Blue [facility] Blue Cross/Blue Shield [id number] Unknown Unknown Family history Father Diagnosis Age At Onset Cancer Unknown Stroke Unknown Heart Attack Unknown Hyperlipidemia Unknown Diabetes mellitus Type 2 Unknown Arthritis Unknown Heart disease Unknown Mother Diagnosis Age At Onset Arthritis Unknown Hypertension Unknown Breast cancer Unknown Sister Diagnosis Age At Onset Multiple sclerosis Unknown Social History Social History Element Codes Description Effective Dates Employment Unknown 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 Number of children Unknown 3 one daughter lives locally, other children live in [facility] 05/04/2015 Marital status Unknown Danielle 11/06/[address]: 691894774 Has never smoked or chewed tobacco 11/06/2014 Alcohol history Unknown occasionally drinks alcohol 11/06/2014 Allergies, Adverse Reactions, Alerts Substance Reaction Codes Entered Date Inactivated Date Status * NO KNOWN FOOD ALLERGIES Unknown 11/06/2014 No Inactive Date Active amoxicillin RxNorm: 723 11/06/2014 No Inactive Date Active AUGMENTIN RxNorm: 240988 11/06/2014 No Inactive Date Active Past Medical [...] hydrocodone 10 mg-acetaminophen 325 mg tablet RxNorm: 663977 1 Tablet(s) PO QID as needed tooth abscess pain or back pain 05/15/2018 06/13/2018 Active Cymbalta 60 mg capsule,delayed release RxNorm: 685210 TAKE ONE CAPSULE BY MOUTH DAILY 05/14/2018 08/11/2018 Active diclofenac sodium 75 mg tablet,delayed release RxNorm: 971341 TAKE ONE TABLET BY MOUTH TWICE A DAY 04/23/2018 09/19/2018 Active Valium 5 mg tablet RxNorm: 213812 Tablet(s) TAKE ONE TABLET BY MOUTH EVERY NIGHT AT BEDTIME 04/18/2018 05/17/2018 Inactive hydrocodone 10 mg-acetaminophen 325 mg tablet RxNorm: 865976 1 Tablet(s) PO QID as needed tooth abscess pain or back pain 04/16/2018 05/14/2018 Inactive hydrocodone 10 mg-acetaminophen 325 mg tablet RxNorm: 632714 1 Tablet(s) PO QID as needed tooth abscess pain or back pain 03/15/2018 04/13/2018 Inactive Effexor 75 mg tablet RxNorm: 690648 TAKE ONE TABLET BY MOUTH DAILY 03/14/2018 08/10/2018 Active hydrocodone 10 mg-acetaminophen 325 mg tablet RxNorm: 290648 1 Tablet(s) PO QID as needed tooth abscess pain or back pain 02/16/2018 03/14/2018 Inactive simvastatin 40 mg tablet RxNorm: 880058 TAKE ONE TABLET BY MOUTH EVERY NIGHT AT BEDTIME 02/12/2018 06/11/2018 Active Cymbalta 60 mg capsule,delayed release RxNorm: 693397 TAKE ONE CAPSULE BY MOUTH DAILY 02/12/2018 05/12/2018 Inactive diclofenac sodium 75 mg tablet,delayed release RxNorm: 397269 TAKE ONE TABLET BY MOUTH TWICE A DAY 01/26/2018 04/22/2018 Inactive hydrocodone 10 mg-acetaminophen 325 mg tablet RxNorm: 341840 1 Tablet(s) PO QID as needed tooth abscess pain or back pain 01/18/2018 02/15/2018 Inactive Claritin-D 24 Hour 10 mg-240 mg tablet,extended release RxNorm: 4278729 Tablet(s) TAKE ONE TABLET BY MOUTH DAILY 01/08/2018 04/07/2018 Inactive enalapril 5 mg-hydrochlorothiazide 12.5 mg tablet RxNorm: 756846 TAKE ONE TABLET BY MOUTH DAILY 12/29/2017 05/27/2018 Active hydrocodone 10 mg-acetaminophen 325 mg tablet RxNorm: 727666 1 Tablet(s) PO QID as needed tooth abscess pain or back pain 12/21/2017 01/17/2018 Inactive Cymbalta 60 mg capsule,delayed release RxNorm: 569181 TAKE ONE CAPSULE BY MOUTH DAILY 12/15/2017 02/11/2018 Inactive hydrocodone 10 mg-acetaminophen 325 mg tablet RxNorm: 073109 1 Tablet(s) PO QID as needed tooth abscess pain or back pain 11/22/2017 11/21/2017 Inactive hydrocodone 10 mg-acetaminophen 325 mg tablet RxNorm: 905140 1 Tablet(s) PO QID as needed tooth abscess pain or back pain 11/22/2017 12/20/2017 Inactive Movantik 25 mg tablet RxNorm: 4789501 1 Tablet(s) PO QAM 201712/07/2017 Inactive hydrocodone 10 mg-acetaminophen 325 mg tablet RxNorm: 570342 1 Tablet(s) PO QID as needed tooth abscess pain or back pain 10/20/2017 11/18/2017 Inactive Effexor 75 mg tablet RxNorm: 747200 TAKE ONE TABLET BY MOUTH DAILY 10/10/2017 03/08/2018 Inactive diclofenac sodium 75 mg tablet,delayed release RxNorm: 071916 TAKE ONE TABLET BY MOUTH TWICE A DAY 10/02/2017 01/25/2018 Inactive hydrocodone 10 mg-acetaminophen 325 mg tablet RxNorm: 920027 1 Tablet(s) PO QID as needed tooth abscess pain or back pain 09/27/2017 10/26/2017 Inactive simvastatin 40 mg tablet RxNorm: 788130 TAKE ONE TABLET BY MOUTH EVERY NIGHT AT BEDTIME 09/13/2017 02/09/2018 Inactive Cymbalta 60 mg capsule,delayed release RxNorm: 458644 TAKE ONE CAPSULE BY MOUTH DAILY 09/13/2017 12/11/2017 Inactive Claritin-D 24 Hour 10 mg-240 mg tablet,extended release RxNorm: 3324062 Tablet(s) TAKE ONE TABLET BY MOUTH DAILY 08/28/2017 11/25/2017 Inactive Claritin-D 24 Hour 10 mg-240 mg tablet,extended release RxNorm: 3143916 TAKE ONE TABLET BY MOUTH DAILY 08/28/20172017 Inactive hydrocodone 10 mg-acetaminophen 325 mg tablet RxNorm: 778072 1 Tablet(s) PO QID as needed tooth abscess pain or back pain 08/25/2017 09/23/2017 Inactive Valium 5 mg tablet RxNorm: 877112 Tablet(s) TAKE ONE TABLET BY MOUTH EVERY NIGHT AT BEDTIME 08/07/2017 11/02/2017 Inactive Metanx (algal oil) 3 mg-35 mg-2 mg-90.314 mg capsule RxNorm: TAKE ONE CAPSULE BY MOUTH TWO TIMES DAILY 08/02/20172017 Inactive hydrocodone 10 mg-acetaminophen 325 mg tablet RxNorm: 983058 1 Tablet(s) PO QID as needed tooth abscess pain or back pain 07/27/2017 08/24/2017 Inactive enalapril 5 mg-hydrochlorothiazide 12.5 mg tablet RxNorm: 941430 TAKE ONE TABLET BY MOUTH DAILY 07/03/2017 12/28/2017 Inactive hydrocodone 10 mg-acetaminophen 325 mg tablet RxNorm: 993649 1 Tablet(s) PO QID as needed tooth abscess pain or back pain 06/23/2017 07/22/2017 Inactive hydrocodone 10 mg-acetaminophen 325 mg tablet RxNorm: 344035 1 Tablet(s) PO QID as needed tooth abscess pain or back pain 05/31/2017 06/22/2017 Inactive diclofenac sodium 75 mg tablet,delayed release RxNorm: 734688 TAKE ONE TABLET BY MOUTH TWICE A DAY 05/29/2017 09/25/2017 Inactive Valium 5 mg tablet RxNorm: 361240 Tablet(s) TAKE ONE TABLET BY MOUTH EVERY NIGHT AT BEDTIME 05/16/2017 04/17/2018 Inactive Cymbalta 60 mg capsule,delayed release RxNorm: 312792 TAKE ONE CAPSULE BY MOUTH DAILY 05/15/2017 09/11/2017 Inactive hydrocodone 10 mg-acetaminophen 325 mg tablet RxNorm: 803990 1 Tablet(s) PO QID as needed tooth abscess pain or back pain 2017 05/30/2017 Inactive Claritin-D 24 Hour 10 mg-240 mg tablet,extended release RxNorm: 6198177 Tablet(s) TAKE ONE TABLET BY MOUTH DAILY 04/19/2017 07/17/2017 Inactive hydrocodone 5 mg-acetaminophen 325 mg tablet RxNorm: 258583 1-2 Tablet(s) PO Q6 as needed 04/18/2017 05/02/2017 Inactive Effexor 75 mg tablet RxNorm: 924333 TAKE ONE TABLET BY MOUTH DAILY 04/13/2017 10/09/2017 Inactive Keflex 500 mg capsule RxNorm: 145350 1 Capsule(s) PO TID 201603/26/2017 Inactive clindamycin 300 mg capsule RxNorm: 236569 1 Capsule(s) PO TID 03/20/2017 03/26/2017 Inactive ceftriaxone 500 mg solution for injection RxNorm: 1764404 1 Gram(s) Inj 03/16/2017 03/16/2017 Inactive clindamycin 300 mg capsule RxNorm: 226557 1 Capsule(s) PO TID 03/16/2017 03/19/2017 Inactive hydrocodone 5 mg-acetaminophen 325 mg tablet RxNorm: 614878 1-2 Tablet(s) PO Q6 as needed 03/16/2017 03/16/2017 Inactive Keflex 500 mg capsule RxNorm: 366621 1 Capsule(s) PO TID 201603/19/2017 Inactive hydrocodone 10 mg-acetaminophen 325 mg tablet RxNorm: 142396 1 Tablet(s) PO QID as needed tooth abscess pain or back pain 03/16/2017 04/14/2017 Inactive simvastatin 40 mg tablet RxNorm: 577915 TAKE ONE TABLET BY MOUTH EVERY NIGHT AT BEDTIME 03/13/2017 09/08/2017 Inactive clindamycin 300 mg capsule RxNorm: 143901 1 Capsule(s) PO TID 03/10/2017 03/15/2017 Inactive hydrocodone 5 mg-acetaminophen 325 mg tablet RxNorm: 138842 1-2 Tablet(s) PO Q6 as needed 03/03/2017 03/15/2017 Inactive hydrocodone 5 mg-acetaminophen 325 mg tablet RxNorm: 664858 1 to 2 Tablet(s) PO Q6 as needed 02/15/2017 02/25/2017 Inactive hydrocodone 5 mg-acetaminophen 325 mg tablet RxNorm: 793229 1 to 2 Tablet(s) PO Q6 as needed 02/02/2017 02/12/2017 Inactive enalapril 5 mg-hydrochlorothiazide 12.5 mg tablet RxNorm: 308328 TAKE ONE TABLET BY MOUTH DAILY 01/23/2017 06/21/2017 Inactive diclofenac sodium 75 mg tablet,delayed release RxNorm: 807117 TAKE ONE TABLET BY MOUTH TWICE A DAY 01/23/2017 05/22/2017 Inactive hydrocodone 5 mg-acetaminophen 325 mg tablet RxNorm: 340572 1 to 2 Tablet(s) PO Q6 as needed 01/12/2017 01/22/2017 Inactive hydrocodone 5 mg-acetaminophen 325 mg tablet RxNorm: 299284 1 to 2 Tablet(s) PO Q6 as needed 12/29/2016 01/08/2017 Inactive hydrocodone 5 mg-acetaminophen 325 mg tablet RxNorm: 663321 1 to 2 Tablet(s) PO Q6 as needed 12/16/2016 12/26/2016 Inactive Cymbalta 60 mg capsule,delayed release RxNorm: 079414 TAKE ONE CAPSULE BY MOUTH DAILY 12/14/2016 05/12/2017 Inactive hydrocodone 5 mg-acetaminophen 325 mg tablet RxNorm: 887116 1 to 2 Tablet(s) PO Q6 as needed 11/30/2016 12/10/2016 Inactive Voltaren 1 % topical gel RxNorm: 454343 2 Gram(s) TOP QID bilateral SI joints 11/16/2016 01/14/2017 Inactive diclofenac sodium 75 mg tablet,delayed release RxNorm: 950207 TAKE ONE TABLET BY MOUTH TWICE A DAY 10/31/2016 01/22/2017 Inactive hydrocodone 5 mg-acetaminophen 325 mg tablet RxNorm: 957581 1 to 2 Tablet(s) PO Q6 as needed 10/27/2016 11/06/2016 Inactive hydrocodone 5 mg-acetaminophen 325 mg tablet RxNorm: 696679 1 to 2 Tablet(s) PO Q6 as needed 10/05/2016 10/15/2016 Inactive Effexor 75 mg tablet RxNorm: 017549 TAKE ONE TABLET BY MOUTH DAILY 10/03/2016 03/31/2017 Inactive Claritin-D 24 Hour 10 mg-240 mg tablet,extended release RxNorm: 6205599 Tablet(s) TAKE ONE TABLET BY MOUTH DAILY 09/26/2016 12/24/2016 Inactive hydrocodone 5 mg-acetaminophen 325 mg tablet RxNorm: 266722 1 to 2 Tablet(s) PO Q6 as needed 09/09/2016 09/19/2016 Inactive hydrocodone 5 mg-acetaminophen 325 mg tablet RxNorm: 143913 1 to 2 Tablet(s) PO Q6 as needed 08/19/2016 08/29/2016 Inactive hydrocodone 5 mg-acetaminophen 325 mg tablet RxNorm: 120665 1 to 2 Tablet(s) PO Q6 as needed 08/01/2016 08/11/2016 Inactive enalapril 5 mg-hydrochlorothiazide 12.5 mg tablet RxNorm: 598072 Tablet(s) TAKE ONE TABLET BY MOUTH DAILY 07/18/201601/13 Inactive Movantik 25 mg tablet RxNorm: 7110431 1 Tablet(s) PO QAM 201611/07/2017 Inactive hydrocodone 5 mg-acetaminophen 325 mg tablet RxNorm: 314724 1 to 2 Tablet(s) PO Q6 as needed 07/15/2016 07/25/2016 Inactive diclofenac sodium 75 mg tablet,delayed release RxNorm: 014423 TAKE ONE TABLET BY MOUTH TWICE A DAY 06/27/2016 10/24/2016 Inactive hydrocodone 5 mg-acetaminophen 325 mg tablet RxNorm: 516219 1 to 2 Tablet(s) PO Q6 as needed 06/16/2016 06/26/2016 Inactive Claritin-D 24 Hour 10 mg-240 mg tablet,extended release RxNorm: 8592625 Tablet(s) TAKE ONE TABLET BY MOUTH DAILY 06/10/2016 08/08/2016 Inactive Metanx (algal oil) 3 mg-35 mg-2 mg-90.314 mg capsule RxNorm: Capsule(s) TAKE ONE CAPSULE BY MOUTH TWO TIMES DAILY 06/02/2016 05/27/2017 Inactive hydrocodone 5 mg-acetaminophen 325 mg tablet RxNorm: 996649 1 to 2 Tablet(s) PO Q6 as needed 05/27/2016 06/06/2016 Inactive Valium 5 mg tablet RxNorm: 468797 Tablet(s) TAKE ONE TABLET BY MOUTH EVERY NIGHT AT BEDTIME 05/16/2016 07/14/2016 Inactive Metanx (algal oil) 3 mg-35 mg-2 mg-90.314 mg capsule RxNorm: TAKE ONE CAPSULE BY MOUTH TWO TIMES DAILY 05/11/20162015 Inactive hydrocodone 5 mg-acetaminophen 325 mg tablet RxNorm: 087378 1 to 2 Tablet(s) PO Q6 as needed 04/25/2016 05/02/2016 Inactive [SAVINGS FOR NON-COVERED DRUGS -- BIN: 450930, PCN: ASPROD1, Group: XXXXX, ID# [id number], Questions: . THIS IS NOT INSURANCE.] hydrocodone 5 mg-acetaminophen 325 mg tablet RxNorm: 957590 1 to 2 Tablet(s) PO Q6 as needed 04/01/2016 04/08/2016 Inactive [SAVINGS FOR NON-COVERED DRUGS -- BIN: 013712, PCN: ASPROD1, Group: XXXXX, ID# [id number], Questions: . THIS IS NOT INSURANCE.] diclofenac sodium 75 mg tablet,delayed release RxNorm: 203152 TAKE ONE TABLET BY MOUTH TWICE A DAY 03/21/2016 06/18/2016 Inactive enalapril 5 mg-hydrochlorothiazide 12.5 mg tablet RxNorm: 543075 TAKE ONE TABLET BY MOUTH DAILY 03/21/2016 07/17/2016 Inactive Claritin-D 24 Hour 10 mg-240 mg tablet,extended release RxNorm: 5271320 Tablet(s) TAKE ONE TABLET BY MOUTH DAILY 03/11/2016 06/08/2016 Inactive hydrocodone 5 mg-acetaminophen 325 mg tablet RxNorm: 850851 1 to 2 Tablet(s) PO Q6 as needed 03/08/2016 03/15/2016 Inactive [SAVINGS FOR NON-COVERED DRUGS -- BIN: 442399, PCN: ASPROD1, Group: XXXXX, ID# [id number], Questions: . THIS IS NOT INSURANCE.] simvastatin 40 mg tablet RxNorm: 729099 1 Tablet(s) PO QHS 10/03/2016 Inactive Effexor 75 mg tablet RxNorm: 451660 Tablet(s) TAKE ONE TABLET BY MOUTH DAILY 03/08/2016 10/02/2016 Inactive simvastatin 40 mg tablet RxNorm: 144761 TAKE ONE TABLET BY MOUTH EVERY NIGHT AT BEDTIME 02/05/2016 05/04/2016 Inactive Request already responded to by other means (e.g. phone or fax) hydrocodone 5 mg-acetaminophen 325 mg tablet RxNorm: 437528 1 to 2 Tablet(s) PO Q6 as needed 02/02/2016 02/09/2016 Inactive [SAVINGS FOR NON-COVERED DRUGS -- BIN: 545549, PCN: ASPROD1, Group: XXXXX, ID# [id number], Questions: . THIS IS NOT INSURANCE.] simvastatin 40 mg tablet RxNorm: 940708 1 Tablet(s) PO QHS 03/07/2016 Inactive Cymbalta 60 mg capsule,delayed release RxNorm: 957813 TAKE ONE CAPSULE BY MOUTH DAILY 01/14/2016 06/11/2016 Inactive Request already responded to by other means ( e.g. phone or fax) Claritin-D 24 Hour 10 mg-240 mg tablet,extended release RxNorm: 8075376 Tablet(s) TAKE ONE TABLET BY MOUTH DAILY 01/14/2016 02/12/2016 Inactive hydrocodone 5 mg-acetaminophen 325 mg tablet RxNorm: 835582 1 to 2 Tablet(s) PO Q6 as needed 01/14/2016 01/21/2016 Inactive [SAVINGS FOR NON-COVERED DRUGS -- BIN: 810336, PCN: ASPROD1, Group: XXXXX, ID# [id number], Questions: . THIS IS NOT INSURANCE.] Claritin-D 24 Hour 10 mg-240 mg tablet,extended release RxNorm: 1364163 TAKE ONE TABLET BY MOUTH DAILY 01/14/20162015 Inactive Cymbalta 60 mg capsule,delayed release RxNorm: 779308 Capsule(s) TAKE ONE CAPSULE BY MOUTH DAILY 01/12/2016 01/13/2016 Inactive Claritin-D 24 Hour 10 mg-240 mg tablet,extended release RxNorm: 2203446 TAKE ONE TABLET BY MOUTH DAILY 01/11/20162015 Inactive Claritin-D 24 Hour 10 mg-240 mg tablet,extended release RxNorm: 4748052 TAKE ONE TABLET BY MOUTH DAILY 01/11/20162015 Inactive Claritin-D 24 Hour 10 mg-240 mg tablet,extended release RxNorm: 7585133 TAKE ONE TABLET BY MOUTH DAILY 01/07/20162015 Inactive Effexor 75 mg tablet RxNorm: 413305 TAKE ONE TABLET BY MOUTH DAILY 01/01/2016 02/29/2016 Inactive diclofenac sodium 75 mg tablet,delayed release RxNorm: 402821 TAKE ONE TABLET BY MOUTH TWICE A DAY 12/23/2015 03/20/2016 Inactive enalapril 5 mg-hydrochlorothiazide 12.5 mg tablet RxNorm: 625911 TAKE ONE TABLET BY MOUTH DAILY 12/23/2015 03/20/2016 Inactive hydrocodone 5 mg-acetaminophen 325 mg tablet RxNorm: 768658 1 to 2 Tablet(s) PO Q6 as needed 12/22/2015 12/29/2015 Inactive [SAVINGS FOR NON-COVERED DRUGS -- BIN: 988470, PCN: ASPROD1, Group: XXXXX, ID# [id number], Questions: . THIS IS NOT INSURANCE.] Valium 5 mg tablet RxNorm: 183317 Tablet(s) TAKE ONE TABLET BY MOUTH EVERY NIGHT AT BEDTIME 12/01/2015 04/17/2018 Inactive hydrocodone 5 mg-acetaminophen 325 mg tablet RxNorm: 768177 1 to 2 Tablet(s) PO Q6 as needed 11/30/2015 12/07/2015 Inactive [SAVINGS FOR NON-COVERED DRUGS -- BIN: 191686, PCN: ASPROD1, Group: XXXXX, ID# [id number], Questions: . THIS IS NOT INSURANCE.] hydrocodone 5 mg-acetaminophen 325 mg tablet RxNorm: 189237 1 to 2 Tablet(s) PO Q6 as needed 11/09/2015 11/16/2015 Inactive [SAVINGS FOR NON-COVERED DRUGS -- BIN: 654377, PCN: ASPROD1, Group: XXXXX, ID# [id number], Questions: . THIS IS NOT INSURANCE.] Claritin-D 24 Hour 10 mg-240 mg tablet,extended release RxNorm: 4500721 Tablet(s) TAKE ONE TABLET BY MOUTH DAILY 11/05/2015 11/04/2015 Inactive Claritin-D 24 Hour 10 mg-240 mg tablet,extended release RxNorm: 6805094 Tablet(s) TAKE ONE TABLET BY MOUTH DAILY 11/05/2015 01/06/2016 Inactive Claritin-D 24 Hour 10 mg-240 mg tablet,extended release RxNorm: 4515829 Tablet(s) TAKE ONE TABLET BY MOUTH DAILY 10/30/2015 03/10/2016 Inactive hydrocodone 5 mg-acetaminophen 325 mg tablet RxNorm: 270689 1 to 2 Tablet(s) PO Q6 as needed 10/09/2015 10/16/2015 Inactive [SAVINGS FOR NON-COVERED DRUGS -- BIN: 482157, PCN: ASPROD1, Group: XXXXX, ID# [id number], Questions: . THIS IS NOT INSURANCE.] Effexor 75 mg tablet RxNorm: 450790 TAKE ONE TABLET BY MOUTH DAILY 10/05/2015 12/31/2015 Inactive simvastatin 40 mg tablet RxNorm: 399477 1 Tablet(s) PO QHS 01/31/2016 Inactive hydrocodone 5 mg-acetaminophen 325 mg tablet RxNorm: 247949 1 to 2 Tablet(s) PO Q6 as needed 09/15/2015 09/22/2015 Inactive [SAVINGS FOR NON-COVERED DRUGS -- BIN: 897551, PCN: ASPROD1, Group: XXXXX, ID# [id number], Questions: . THIS IS NOT INSURANCE.] Valium 5 mg tablet RxNorm: 551700 Tablet(s) TAKE ONE TABLET BY MOUTH EVERY NIGHT AT BEDTIME 09/08/2015 04/17/2018 Inactive enalapril 5 mg-hydrochlorothiazide 12.5 mg tablet RxNorm: 282459 Tablet(s) TAKE ONE TABLET BY MOUTH DAILY 08/21/201512/17 Inactive diclofenac sodium 75 mg tablet,delayed release RxNorm: 407081 1 Tablet(s) PO BID 08/21/2015 12/18/2015 Inactive hydrocodone 5 mg-acetaminophen 325 mg tablet RxNorm: 017446 1 to 2 Tablet(s) PO Q6 as needed 08/13/2015 08/20/2015 Inactive [SAVINGS FOR NON-COVERED DRUGS -- BIN: 147695, PCN: ASPROD1, Group: XXXXX, ID# [id number], Questions: . THIS IS NOT INSURANCE.] clindamycin 300 mg capsule RxNorm: 231387 1 Capsule(s) PO TID 08/06/2015 08/10/2015 Inactive Claritin-D 24 Hour 10 mg-240 mg tablet,extended release RxNorm: 1081873 Tablet(s) TAKE ONE TABLET BY MOUTH DAILY 07/23/2015 10/20/2015 Inactive hydrocodone 5 mg-acetaminophen 325 mg tablet RxNorm: 836280 1 to 2 Tablet(s) PO Q6 as needed 07/23/2015 07/30/2015 Inactive [SAVINGS FOR NON-COVERED DRUGS -- BIN: 653340, PCN: ASPROD1, Group: XXXXX, ID# [id number], Questions: . THIS IS NOT INSURANCE.] Claritin-D 24 Hour 10 mg-240 mg tablet,extended release RxNorm: 7985856 TAKE ONE TABLET BY MOUTH DAILY 07/22/20152015 Inactive Valium 5 mg tablet RxNorm: 228428 Tablet(s) TAKE ONE TABLET BY MOUTH EVERY NIGHT AT BEDTIME 07/22/2015 04/17/2018 Inactive Claritin-D 24 Hour 10 mg-240 mg tablet,extended release RxNorm: 3036142 TAKE ONE TABLET BY MOUTH DAILY 07/20/20152015 Inactive Cymbalta 60 mg capsule,delayed release RxNorm: 183541 TAKE ONE CAPSULE BY MOUTH DAILY 07/20/2015 01/11/2016 Inactive cyclobenzaprine 10 mg tablet RxNorm: 927546 TAKE ONE TABLET BY MOUTH AT BEDTIME NEEDED 07/06/2015 08/04/2015 Inactive hydrocodone 5 mg-acetaminophen 325 mg tablet RxNorm: 251683 1 to 2 Tablet(s) PO Q6 as needed 06/23/2015 06/30/2015 Inactive [SAVINGS FOR NON-COVERED DRUGS -- BIN: 658927, PCN: ASPROD1, Group: XXXXX, ID# [id number], Questions: . THIS IS NOT INSURANCE.] Effexor 75 mg tablet RxNorm: 163008 1 Tablet(s) PO daily 201409/28/2015 Inactive hydrocodone 5 mg-acetaminophen 325 mg tablet RxNorm: 863070 1 to 2 Tablet(s) PO Q6 as needed 05/22/2015 05/29/2015 Inactive [SAVINGS FOR NON-COVERED DRUGS -- BIN: 107845, PCN: ASPROD1, Group: XXXXX, ID# [id number], Questions: . THIS IS NOT INSURANCE.] Valium 5 mg tablet RxNorm: 175512 Tablet(s) TAKE ONE TABLET BY MOUTH EVERY NIGHT AT BEDTIME 05/22/2015 04/17/2018 Inactive diclofenac sodium 75 mg tablet,delayed release RxNorm: 734071 1 Tablet(s) PO BID 05/04/2015 08/20/2015 Inactive Metanx (algal oil) 3 mg-35 mg-2 mg-90.314 mg capsule RxNorm: 1 Capsule(s) PO BID 05/04/2015 04/27/2016 Inactive enalapril 5 mg-hydrochlorothiazide 12.5 mg tablet RxNorm: 616567 TAKE ONE TABLET BY MOUTH DAILY 04/27/2015 08/20/2015 Inactive hydrocodone 5 mg-acetaminophen 325 mg tablet RxNorm: 197866 1 to 2 Tablet(s) PO Q6 as needed 04/27/2015 05/04/2015 Inactive [SAVINGS FOR NON-COVERED DRUGS -- BIN: 659540, PCN: ASPROD1, Group: XXXXX, ID# [id number], Questions: . THIS IS NOT INSURANCE.] hydrocodone 5 mg-acetaminophen 325 mg tablet RxNorm: 940511 1 to 2 Tablet(s) PO Q6 as needed 03/26/2015 04/02/2015 Inactive [SAVINGS FOR NON-COVERED DRUGS -- BIN: 193847, PCN: ASPROD1, Group: XXXXX, ID# [id number], Questions: . THIS IS NOT INSURANCE.] Claritin-D 24 Hour 10 mg-240 mg tablet,extended release RxNorm: 6927239 Tablet(s) TAKE ONE TABLET BY MOUTH DAILY 03/24/2015 07/19/2015 Inactive Valium 5 mg tablet RxNorm: 118816 TAKE ONE TABLET BY MOUTH EVERY NIGHT AT BEDTIME 03/05/2015 04/03/2015 Inactive Valium 5 mg tablet RxNorm: 304357 1 Tablet(s) PO daily as needed 03/05/2015 03/05/2015 Inactive [SAVINGS FOR NON-COVERED DRUGS -- BIN:157679, PCN: ASPROD1, Group : XXXXX, ID# [id number], Questions: . THIS IS NOT INSURANCE.] hydrocodone 5 mg-acetaminophen 325 mg tablet RxNorm: 409744 1 to 2 Tablet(s) PO Q6 as needed 02/18/2015 02/25/2015 Inactive [SAVINGS FOR NON-COVERED DRUGS -- BIN: 280841, PCN: ASPROD1, Group: XXXXX, ID# [id number], Questions: . THIS IS NOT INSURANCE.] enalapril 5 mg-hydrochlorothiazide 12.5 mg tablet RxNorm: 637043 1 Tablet(s) PO daily 01/30/2015 04/26/2015 Inactive hydrocodone 5 mg-acetaminophen 325 mg tablet RxNorm: 066811 1 to 2 Tablet(s) PO Q6 as needed 01/22/2015 01/29/2015 Inactive [SAVINGS FOR NON-COVERED DRUGS -- BIN: 257541, PCN: ASPROD1, Group: XXXXX, ID# [id number], Questions: . THIS IS NOT INSURANCE.] Claritin-D 24 Hour 10 mg-240 mg tablet,extended release RxNorm: 2353199 TAKE ONE TABLET BY MOUTH DAILY 01/15/20152014 Inactive Claritin-D 24 Hour 10 mg-240 mg tablet,extended release RxNorm: 1701011 Tablet(s) TAKE ONE TABLET BY MOUTH DAILY 01/15/2015 01/14/2015 Inactive cyclobenzaprine 10 mg tablet RxNorm: 849167 1 Tablet(s) PO QHS as needed 12/29/2014 01/27/2015 Inactive hydrocodone 5 mg-acetaminophen 325 mg tablet RxNorm: 897779 1 to 2 Tablet(s) PO Q6 as needed 12/23/2014 12/30/2014 Inactive [SAVINGS FOR NON-COVERED DRUGS -- BIN: 160264, PCN: ASPROD1, Group: XXXXX, ID# [id number], Questions: . THIS IS NOT INSURANCE.] Cymbalta 60 mg capsule,delayed release RxNorm: 439919 1 Capsule(s) PO daily 12/18/2014 07/15/2015 Inactive Claritin-D 24 Hour 10 mg-240 mg tablet,extended release RxNorm: 7054544 TAKE ONE TABLET BY MOUTH DAILY 12/15/20142014 Inactive Claritin-D 24 Hour 10 mg-240 mg tablet,extended release RxNorm: 2221915 TAKE ONE TABLET BY MOUTH DAILY 12/15/20142014 Inactive Claritin-D 24 Hour 10 mg-240 mg tablet,extended release RxNorm: 1057316 TAKE ONE TABLET BY MOUTH DAILY 12/15/20142014 Inactive Claritin-D 24 Hour 10 mg-240 mg tablet,extended release RxNorm: 2106036 1 Tablet(s ) PO daily 12/10/2014 12/14/2014 Inactive hydrocodone 5 mg-acetaminophen 325 mg tablet RxNorm: 243095 1 to 2 Tablet(s) PO Q6 as needed 12/08/2014 12/22/2014 Inactive [SAVINGS FOR NON-COVERED DRUGS -- BIN: 929740, PCN: ASPROD1, Group: XXXXX, ID# [id number], Questions: . THIS IS NOT INSURANCE.] hydrocodone 5 mg-acetaminophen 325 mg tablet RxNorm: 930444 1 to 2 Tablet(s) PO Q6 as needed 11/25/2014 12/07/2014 Inactive [SAVINGS FOR NON-COVERED DRUGS -- BIN: 782220, PCN: ASPROD1, Group: XXXXX, ID# [id number], Questions: . THIS IS NOT INSURANCE.] Claritin-D 24 Hour 10 mg-240 mg tablet,extended release RxNorm: 6073666 1 Tablet(s ) PO daily 11/07/2014 12/06/2014 Inactive Claritin-D 24 Hour 10 mg-240 mg tablet,extended release RxNorm: 9669958 1 Tablet(s ) PO daily 11/07/2014 11/06/2014 Inactive hydrocodone 5 mg-acetaminophen 325 mg tablet RxNorm: 775020 1 to 2 Tablet(s) PO Q6 as needed 11/03/2014 11/24/2014 Inactive [SAVINGS FOR NON-COVERED DRUGS -- BIN: 722550, PCN: ASPROD1, Group: XXXXX, ID# [id number], Questions: . THIS IS NOT INSURANCE.] Valium 5 mg tablet RxNorm: 713040 1 Tablet(s) PO daily as needed 10/23/2014 12/20/2014 Inactive [SAVINGS FOR NON-COVERED DRUGS -- BIN:533759, PCN: ASPROD1, Group : XXXXX, ID# [id number], Questions: . THIS IS NOT INSURANCE.] Cialis 5 mg tablet RxNorm: 720799 1/2 Tablet(s) PO daily No Stop Date Active [SAVINGS FOR NON-COVERED DRUGS -- BIN:893826, PCN: ASPROD1, Group: XXXXX, ID# [id number], Questions: . THIS IS NOT INSURANCE.] aspirin 81 mg tablet RxNorm: 521650 1 Tablet(s) PO daily No Start Date Active Effexor 75 mg tablet RxNorm: 203897 1 Tablet(s) PO daily No Start Date 05/31/2015 Inactive Valium 5 mg tablet RxNorm: 181301 1 Tablet(s) PO daily as needed No Start Date 10/22/2014 Inactive simvastatin 40 mg tablet RxNorm: 416765 1 Tablet(s) PO QHS No Start Date 10/04/2015 Inactive enalapril 5 mg-hydrochlorothiazide 12.5 mg tablet RxNorm: 882641 oral No Start Date 01/29/2015 Inactive cyclobenzaprine 10 mg tablet RxNorm: 462402 1 Tablet(s) PO as needed No Start Date 12/28/2014 Inactive Cymbalta 60 mg capsule,delayed release RxNorm: 296499 1 Capsule(s) PO daily No Start Date 12/17/2014 Inactive hydrocodone 5 mg-acetaminophen 325 mg tablet RxNorm: 588804 1 to 2 Tablet(s) PO Q6 as needed No Start Date 11/02/2014 Inactive diclofenac sodium 75 mg tablet,delayed release RxNorm: 962535 1 Tablet(s) PO BID No Start Date 2015 Inactive Cialis 5 mg tablet RxNorm: 737715 1 Tablet(s) PO daily No Start Date 10/12/2014 Inactive Medication Administered Medication Codes Instructions Start Date Status ceftriaxone 500 mg solution for injection RxNorm: 7373534 1Gram 03/16/2017 No longer Active Immunizations No [...] Antibody With Reflex For Hcv Antibody Verificat 633977 HEPATITIS C ANTIBODY NEGATIVE 07/19/2016 Lipid Ord30 CHOL 180 mg/dL 07/18/2016 Lipid Ord30 HDL 56.0 mg/dl 07/18/2016 Lipid Ord30 TRIG 153 mg/dL 07/18/2016 Lipid Ord30 LDL 93 mg/dL 07/18/2016 Lipid Ord30 C/HDL 3.2 Ratio 07/18/2016 Comp Metabolic Dlt165 NA 136 mEq/L 07/18/2016 Comp Metabolic Gmy293 K 4.3 mEq/L 07/18/2016 Comp Metabolic Kjw039 CL 100 mEq/L 07/18/2016 Comp Metabolic Iwl672 CO2 30.0 mEq/L 07/18/2016 Comp Metabolic Mcd677 ANION GAP 10 07/18/2016 Comp Metabolic Swe245 GLUCOSE 104 mg/dL 07/18/2016 Comp Metabolic Ajm901 Creat 1.0 mg/dL 07/18/2016 Comp Metabolic Enl851 eGFR 81 ml/min/1.73m2 07/18/2016 Comp Metabolic Xkl697 BUN 21 mg/dL 07/18/2016 Comp Metabolic Ywp411 B/C Ratio 20.8 Ratio 07/18/2016 Comp Metabolic Izw386 CALCIUM 9.5 mg/dL 07/18/2016 Comp Metabolic Ojx911 ALK PHOS 45 U/L 07/18/2016 Comp Metabolic Vty838 AST(SGOT) 26 U/L 07/18/2016 Comp Metabolic Fid991 ALT(SGPT) 52 U/L 07/18/2016 Comp Metabolic Bsf225 BILI T 0.8 mg/dL 07/18/2016 Comp Metabolic Hdb611 ALBUMIN 4.7 g/dL 07/18/2016 Comp Metabolic Smj443 TPRO 6.9 g/dL 07/18/2016 Comp Metabolic Aku197 GLOB 2.2 g/dL 07/18/2016 Comp Metabolic Jrx227 A/G Ratio 2.2 Ratio 07/18/2016 Comp Metabolic Lfa604 Osmo 275 mOsmo 07/18/2016 Cbc With Differential [...] 31.5 pg 07/18/2016 Cbc With Differential Ord2 [place]% 11.2 % 07/18/2016 Cbc With Differential Ord2 [...] 0.69 K/ul 07/18/2016 Cbc With Differential Ord2 [place] ABS# 0.5 K/ul 07/18/2016 Cbc With Differential Ord2 Eos ABS# 0.2 K/ul 07/18/2016 Cbc With Differential Ord2 Baso ABS# 0.0 K/ul 07/18/2016 Tsh Ord6 hTSH II 1.99 uIU/mL 07/18/2016 Total Psa Ord10 PSA 0.75 ng/mL 07/18/2016 %Hba1C Iag810 % HbA1c 54957-6 5.8 % 07/18/2016 %Hba1C Vzf673 Gluc Ave 120 mg/dL 07/18/2016 Review of [...] Code : 8480-6 BMI: 32.7 Code : 10548-3 Heart Rate 1 : 85 bpm Height: 5'10" SpO2: 99% Weight: 228 lbs 10/20/2017 Blood Pressure 1: 138/78 Code : 8480-6 BMI: 32.4 Code : 04687-2 Heart Rate 1 : 80 bpm Height: 5'10" SpO2: 98% Weight: 226 lbs 03/20/2017 Blood Pressure 1: 134/72 Code : 8480-6 Heart Rate 1: 87 bpm Height: 5'10" SpO2: 97% 03/16/2017 Blood Pressure 1: 150/84 Code : 8480-6 BMI: 32.4 Code : 75811-6 Heart Rate 1 : 98 bpm Height: 5'10" SpO2: 97% Weight: 226 lbs 03/10/2017 Blood Pressure 1: 140/72 Code : 8480-6 BMI: 32.4 Code : 34799-7 Heart Rate 1 : 81 bpm Height: 5'10" SpO2: 97% Weight: 226 lbs 11/16/2016 Blood Pressure 1: 142/80 Code : 8480-6 BMI: 32.1 Code : 32785-5 Heart Rate 1 : 95 bpm Height: 5'10" SpO2: 98% Weight: 224 lbs 07/15/2016 Blood Pressure 1: 130/78 Code : 8480-6 BMI: 32.0 Code : 94926-4 Heart Rate 1 : 85 bpm Height: 5'10" SpO2: 95% Weight: 223 lbs 03/08/2016 Blood Pressure 1: 138/84 Code : 8480-6 BMI: 31.6 Code : 70621-5 Heart Rate 1 : 86 bpm Height: 5'10" SpO2: 98% Weight: 220 lbs 11/26/2015 Blood Pressure 1: 132/82 Code : 8480-6 BMI: 31.6 Code : 00052-8 Height: 5'10 " Weight: 220 lbs 08/06/2015 Blood Pressure 1: 138/74 Code : 8480-6 BMI: 31.0 Code : 47868-8 Heart Rate 1 : 87 bpm Height: 5'10" SpO2: 95% Weight: 216 lbs 05/04/2015 Blood Pressure 1: 128/80 Code : 8480-6 BMI: 33.6 Code : 25942-9 Heart Rate 1 : 94 bpm Height: 5'10" SpO2: 97% Weight: 234 lbs 11/06/2014 Blood Pressure 1: 132/92 Code : 8480-6 BMI: 31.1 Code : 22103-1 Heart Rate 1 : 88 bpm Height: [...] M54.5] [facility] CPT-4 : 13431 05/24/2018 [id number] EST. PATIENT, LEVEL IV Diagnosis: Bilateral primary osteoarthritis of knee[ICD10: M17.0] [facility] CPT-4: 14044 10/20/2017 38853 EST. PATIENT, LEVEL IV Diagnosis: Periapical abscess without sinus[ICD10: K04.7] Diagnosis: Cellulitis and abscess of mouth[ICD10: K12.2] [facility] CPT-4: 86332 03/20/2017 ([id number]) 43947 EST. PATIENT, LEVEL III Diagnosis: Periapical abscess without sinus[ICD10: K04.7] Diagnosis: Cellulitis and abscess of mouth[ICD10: K12.2] Mayte Mcfarlane MD, [facility] CPT-4: 37831 03/16/2017 ([id number]) 37227 EST. PATIENT, LEVEL III Diagnosis: Periapical abscess without sinus[ICD10: K04.7] Niya Mcfarlane MD, [facility] CPT-4: 47622 03/10/2017 ([id number]) 93043 EST. PATIENT, LEVEL IV Diagnosis: Essential (primary) hypertension[ICD10: I10] Diagnosis: Low back pain[ICD10: M54.5] Mayte Mcfarlane MD, [facility] CPT- 4: 20279 11/16/2016 ([id number]) 72830 EST. PATIENT, LEVEL IV Diagnosis: Mixed hyperlipidemia[ICD10: E78.2] Diagnosis: Essential (primary) hypertension[ICD10: I10] Diagnosis: Impaired fasting glucose[ICD10: R73.01] Diagnosis: Encounter for screening for malignant neoplasm of prostate[ICD10: Z12.5] Diagnosis: Encounter for screening for other viral diseases[ICD10: Z11.59] Diagnosis: Drug induced constipation[ICD10: K59.03] Niya Mcfarlane MD, [facility] CPT-4: 68597 07/15/2016 ([id number]) 05750 EST. PATIENT, LEVEL III Diagnosis: Bilateral primary osteoarthritis of knee[ICD10: M17.0] Niya Mcfarlane MD, [facility] CPT-4: 34803 03/08/2016 ([id number]) 97269 EST. PATIENT, LEVEL III Diagnosis: Bilateral primary osteoarthritis of knee[ICD10: M17.0] Niya Mcfarlane MD, [facility] CPT-4: 38285 11/26/2015 93411 EST. PATIENT, LEVEL IV Diagnosis: Cervicalgia[ICD10: M54.2] Diagnosis: Other specified polyneuropathies[ICD10: G62.89] Diagnosis: Dental caries, unspecified[ICD10: K02.9] Diagnosis: Major depressive disorder, single episode, unspecified[ICD10: F32.9] Niya Mcfarlane MD, [facility] CPT-4: 16409 08/06/2015 ([id number]) 90214 EST. PATIENT, LEVEL IV Diagnosis: Mixed hyperlipidemia[ICD10: E78.2] Diagnosis: Idiopathic gout, unspecified ankle and foot[ICD10: M10.079] Diagnosis: Other specified polyneuropathies[ICD10: G62.89] Diagnosis: Morbid (severe) obesity due to excess calories[ICD10: E66.01] [facility] CPT-4: 38874 05/04/2015 ([id number]) OFFICE VISIT, NEW - LEVEL 4 Diagnosis: GOUT[ICD9: 274.9] Diagnosis: Sinusitis, acute[ICD9: 461.9] Diagnosis: HYPERLIPIDEMIA[ICD9: 272.4] Mayte Mcfarlane MD, [facility] CPT- 4: 35310 11/06/2014 Plan of Care Planned Activity Notes Codes Status Date Visit Plan: OA knees - pt has chronic pain - has been maintained on current medications, has not sought out other medications, only uses PRN pain medications as directed, and understands the consequences of over- medication. 05/24/2018 Patient Education: Patient Medication Summary Completed 05/24/2018 Patient Education: Back Pain Completed 05/24/2018 Appointment: Niya Brynat WPtel: [address] [place], [place] [phone] (15 min) Moderate 05/21/2018 Visit Plan: OA knees - pt has chronic pain - has been maintained on current medications, has not sought out other medications, only uses PRN pain medications as directed, and understands the consequences of over- medication. 10/20/2017 Appointment: Julianna Stanford WPtel: [address] [place], [place] [phone] (30 min) Complex 10/20/2017 Patient Education: Patient Medication Summary Completed 10/20/2017 Appointment: Julianna Stanford WPtel: [address] [place], [place] [phone] (15 min) Moderate 10/19/2017 Visit Plan: Cellulitis/Abscess - continue with current treatment course - restart keflex as patient had improvement of symptoms on the rocephin. continue with clindamycin and increase probiotic to tid dosing. Keep follow up appointment with Dr. Hendrix on 03/28. Notify clinic with any changes or concerns, or with any questions. 03/20/2017 Appointment: Julianna Stanford WPtel: [phone] [phone] (30 min) Complex 03/20/2017 Patient Education: Patient [...] tid dosing. 03/16/2017 Appointment: Mayte Mcfarlane WPtel: [phone] [phone] (15 min) Moderate 03/16/2017 Patient Education: Patient Medication Summary Completed 03/16/2017 Visit Plan: Abscessed tooth-discussed with Dr Mcfarlane- plan for IV abx x 3 days-will start with clindamycin and rocephin today and continue rocephin Monday and Monday-will increase dose of oral clindamycin - rx sent to patient's pharmacy and instructed on use. Patient verbalized understanding of plan. 03/10/2017 Appointment: Niya Bryant WPtel: [phone] [phone] (15 min) Moderate [...] worsen. 11/16/2016 Appointment: [facility] [phone] [phone] (15 min) Moderate 11/16/2016 Patient Education: Patient [...] hgb a1c 07/15/2016 Appointment: Niya Bryant WPtel: [phone] (15 min) Moderate 07/15/2016 Patient Education: Patient Medication Summary Completed 07/15/2016 Patient Education: Obesity Completed 07/15/2016 Patient Education: Hypertension Completed 07/15/2016 Visit Plan: OA knees - pt has chronic pain - has been maintained on current medications, has not sought out other medications, only uses PRN pain medications as directed, and understands the consequences of over- medication. 03/08/2016 Appointment: Niya Bryant WPtel: [phone] (30 min) Complex 03/08/2016 Patient Education: Patient [...] medications. 11/06/2014 Appointment: [facility]arlane [facility] [phone] [facility] [place] New Patient 11/06/2014 Patient Education: [...]
--- OUTSIDE RECORDS SUMMARY | 2018-07-11 13:02 | XMS REPORT | CCD ---
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 Name Role Phone PP Unavailable CCM Unavailable Summary Purpose Interface Exchange Insurance Providers Payer name Policy type / Coverage type Covered green party ID Effective Begin Date Effective End Date Blue Cross Blue [facility] Blue Cross/Blue Shield [id number] Unknown Unknown Family history Father Diagnosis Age At Onset Cancer Unknown Stroke Unknown Heart Attack Unknown Hyperlipidemia Unknown Diabetes mellitus Type 2 Unknown Arthritis Unknown Heart disease Unknown Mother Diagnosis Age At Onset Arthritis Unknown Hypertension Unknown Breast cancer Unknown Sister Diagnosis Age At Onset Multiple sclerosis Unknown Social History Social History Element Codes Description Effective Dates Employment Unknown 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 Number of children Unknown 3 one daughter lives locally, other children live in [facility] 05/04/2015 Marital status Unknown Danielle 11/06/[address]: 040127803 Has never smoked or chewed tobacco 11/06/2014 Alcohol history Unknown occasionally drinks alcohol 11/06/2014 Allergies, Adverse Reactions, Alerts Substance Reaction Codes Entered Date Inactivated Date Status * NO KNOWN FOOD ALLERGIES Unknown 11/06/2014 No Inactive Date Active amoxicillin RxNorm: 723 11/06/2014 No Inactive Date Active AUGMENTIN RxNorm: 477921 11/06/2014 No Inactive Date Active Past Medical History Illness Codes Condition Status Onset Date Resolved Date Bilateral primary osteoarthritis of knee ICD-9: 715.96 ICD-10: M17.0 Active 03/07/2016 Unknown Cellulitis and abscess of mouth ICD-9: 528.3 ICD-10: K12.2 Active 03/16/2017 Unknown Periapical abscess without sinus ICD-9: 522.5 ICD-10: K04.7 Active 03/10/2017 Unknown Essential (primary) hypertension ICD-9: 401.9 ICD-10: I10 Active 07/15/2016 Unknown Low back pain ICD-9: 724.2 ICD-10: M54.5 Active 11/16/2016 Unknown Drug induced constipation ICD-9: 564.09 ICD-10: [...] knee ICD-9: 715.96 ICD-10: M17.0 03/07/2016 Active Cellulitis and abscess of mouth ICD-9: 528.3 ICD-10: K12.2 03/16/2017 Active Periapical abscess without sinus ICD-9: 522.5 ICD-10: K04.7 03/10/2017 Active Essential (primary) hypertension ICD-9: 401.9 ICD-10: I10 07/15/2016 Active Low back pain ICD-9: 724.2 ICD-10: M54.5 11/16/2016 Active Drug induced constipation ICD-9: 564.09 ICD-10: [...] hydrocodone 10 mg-acetaminophen 325 mg tablet RxNorm: 543792 1 Tablet(s) PO QID as needed tooth abscess pain or back pain 05/15/2018 06/13/2018 Active Cymbalta 60 mg capsule,delayed release RxNorm: 705204 TAKE ONE CAPSULE BY MOUTH DAILY 05/14/2018 08/11/2018 Active diclofenac sodium 75 mg tablet,delayed release RxNorm: 460866 TAKE ONE TABLET BY MOUTH TWICE A DAY 04/23/2018 09/19/2018 Active Valium 5 mg tablet RxNorm: 241104 Tablet(s) TAKE ONE TABLET BY MOUTH EVERY NIGHT AT BEDTIME 04/18/2018 05/17/2018 Active hydrocodone 10 mg-acetaminophen 325 mg tablet RxNorm: 988868 1 Tablet(s) PO QID as needed tooth abscess pain or back pain 04/16/2018 05/14/2018 Inactive hydrocodone 10 mg-acetaminophen 325 mg tablet RxNorm: 806645 1 Tablet(s) PO QID as needed tooth abscess pain or back pain 03/15/2018 04/13/2018 Inactive Effexor 75 mg tablet RxNorm: 111653 TAKE ONE TABLET BY MOUTH DAILY 03/14/2018 08/10/2018 Active hydrocodone 10 mg-acetaminophen 325 mg tablet RxNorm: 856633 1 Tablet(s) PO QID as needed tooth abscess pain or back pain 02/16/2018 03/14/2018 Inactive simvastatin 40 mg tablet RxNorm: 116507 TAKE ONE TABLET BY MOUTH EVERY NIGHT AT BEDTIME 02/12/2018 06/11/2018 Active Cymbalta 60 mg capsule,delayed release RxNorm: 255306 TAKE ONE CAPSULE BY MOUTH DAILY 02/12/2018 05/12/2018 Inactive diclofenac sodium 75 mg tablet,delayed release RxNorm: 930777 TAKE ONE TABLET BY MOUTH TWICE A DAY 01/26/2018 04/22/2018 Inactive hydrocodone 10 mg-acetaminophen 325 mg tablet RxNorm: 751474 1 Tablet(s) PO QID as needed tooth abscess pain or back pain 01/18/2018 02/15/2018 Inactive Claritin-D 24 Hour 10 mg-240 mg tablet,extended release RxNorm: 2633222 Tablet(s) TAKE ONE TABLET BY MOUTH DAILY 01/08/2018 04/07/2018 Inactive enalapril 5 mg-hydrochlorothiazide 12.5 mg tablet RxNorm: 482604 TAKE ONE TABLET BY MOUTH DAILY 12/29/2017 05/27/2018 Active hydrocodone 10 mg-acetaminophen 325 mg tablet RxNorm: 037306 1 Tablet(s) PO QID as needed tooth abscess pain or back pain 12/21/2017 01/17/2018 Inactive Cymbalta 60 mg capsule,delayed release RxNorm: 403145 TAKE ONE CAPSULE BY MOUTH DAILY 12/15/2017 02/11/2018 Inactive hydrocodone 10 mg-acetaminophen 325 mg tablet RxNorm: 921270 1 Tablet(s) PO QID as needed tooth abscess pain or back pain 11/22/2017 11/21/2017 Inactive hydrocodone 10 mg-acetaminophen 325 mg tablet RxNorm: 596234 1 Tablet(s) PO QID as needed tooth abscess pain or back pain 11/22/2017 12/20/2017 Inactive Movantik 25 mg tablet RxNorm: 2885572 1 Tablet(s) PO QAM 201712/07/2017 Inactive hydrocodone 10 mg-acetaminophen 325 mg tablet RxNorm: 386890 1 Tablet(s) PO QID as needed tooth abscess pain or back pain 10/20/2017 11/18/2017 Inactive Effexor 75 mg tablet RxNorm: 017983 TAKE ONE TABLET BY MOUTH DAILY 10/10/2017 03/08/2018 Inactive diclofenac sodium 75 mg tablet,delayed release RxNorm: 223880 TAKE ONE TABLET BY MOUTH TWICE A DAY 10/02/2017 01/25/2018 Inactive hydrocodone 10 mg-acetaminophen 325 mg tablet RxNorm: 234948 1 Tablet(s) PO QID as needed tooth abscess pain or back pain 09/27/2017 10/26/2017 Inactive simvastatin 40 mg tablet RxNorm: 532292 TAKE ONE TABLET BY MOUTH EVERY NIGHT AT BEDTIME 09/13/2017 02/09/2018 Inactive Cymbalta 60 mg capsule,delayed release RxNorm: 033924 TAKE ONE CAPSULE BY MOUTH DAILY 09/13/2017 12/11/2017 Inactive Claritin-D 24 Hour 10 mg-240 mg tablet,extended release RxNorm: 0336654 Tablet(s) TAKE ONE TABLET BY MOUTH DAILY 08/28/2017 11/25/2017 Inactive Claritin-D 24 Hour 10 mg-240 mg tablet,extended release RxNorm: 0618733 TAKE ONE TABLET BY MOUTH DAILY 08/28/20172017 Inactive hydrocodone 10 mg-acetaminophen 325 mg tablet RxNorm: 615126 1 Tablet(s) PO QID as needed tooth abscess pain or back pain 08/25/2017 09/23/2017 Inactive Valium 5 mg tablet RxNorm: 662364 Tablet(s) TAKE ONE TABLET BY MOUTH EVERY NIGHT AT BEDTIME 08/07/2017 11/02/2017 Inactive Metanx (algal oil) 3 mg-35 mg-2 mg-90.314 mg capsule RxNorm: TAKE ONE CAPSULE BY MOUTH TWO TIMES DAILY 08/02/20172017 Inactive hydrocodone 10 mg-acetaminophen 325 mg tablet RxNorm: 361986 1 Tablet(s) PO QID as needed tooth abscess pain or back pain 07/27/2017 08/24/2017 Inactive enalapril 5 mg-hydrochlorothiazide 12.5 mg tablet RxNorm: 048765 TAKE ONE TABLET BY MOUTH DAILY 07/03/2017 12/28/2017 Inactive hydrocodone 10 mg-acetaminophen 325 mg tablet RxNorm: 972702 1 Tablet(s) PO QID as needed tooth abscess pain or back pain 06/23/2017 07/22/2017 Inactive hydrocodone 10 mg-acetaminophen 325 mg tablet RxNorm: 570211 1 Tablet(s) PO QID as needed tooth abscess pain or back pain 05/31/2017 06/22/2017 Inactive diclofenac sodium 75 mg tablet,delayed release RxNorm: 162501 TAKE ONE TABLET BY MOUTH TWICE A DAY 05/29/2017 09/25/2017 Inactive Valium 5 mg tablet RxNorm: 757180 Tablet(s) TAKE ONE TABLET BY MOUTH EVERY NIGHT AT BEDTIME 05/16/2017 04/17/2018 Inactive Cymbalta 60 mg capsule,delayed release RxNorm: 100471 TAKE ONE CAPSULE BY MOUTH DAILY 05/15/2017 09/11/2017 Inactive hydrocodone 10 mg-acetaminophen 325 mg tablet RxNorm: 336613 1 Tablet(s) PO QID as needed tooth abscess pain or back pain 2017 05/30/2017 Inactive Claritin-D 24 Hour 10 mg-240 mg tablet,extended release RxNorm: 1397183 Tablet(s) TAKE ONE TABLET BY MOUTH DAILY 04/19/2017 07/17/2017 Inactive hydrocodone 5 mg-acetaminophen 325 mg tablet RxNorm: 797526 1-2 Tablet(s) PO Q6 as needed 04/18/2017 05/02/2017 Inactive Effexor 75 mg tablet RxNorm: 029739 TAKE ONE TABLET BY MOUTH DAILY 04/13/2017 10/09/2017 Inactive Keflex 500 mg capsule RxNorm: 193782 1 Capsule(s) PO TID 201603/26/2017 Inactive clindamycin 300 mg capsule RxNorm: 512659 1 Capsule(s) PO TID 03/20/2017 03/26/2017 Inactive ceftriaxone 500 mg solution for injection RxNorm: 0729074 1 Gram(s) Inj 03/16/2017 03/16/2017 Inactive clindamycin 300 mg capsule RxNorm: 302051 1 Capsule(s) PO TID 03/16/2017 03/19/2017 Inactive hydrocodone 5 mg-acetaminophen 325 mg tablet RxNorm: 107774 1-2 Tablet(s) PO Q6 as needed 03/16/2017 03/16/2017 Inactive Keflex 500 mg capsule RxNorm: 503541 1 Capsule(s) PO TID 201603/19/2017 Inactive hydrocodone 10 mg-acetaminophen 325 mg tablet RxNorm: 997821 1 Tablet(s) PO QID as needed tooth abscess pain or back pain 03/16/2017 04/14/2017 Inactive simvastatin 40 mg tablet RxNorm: 142357 TAKE ONE TABLET BY MOUTH EVERY NIGHT AT BEDTIME 03/13/2017 09/08/2017 Inactive clindamycin 300 mg capsule RxNorm: 138344 1 Capsule(s) PO TID 03/10/2017 03/15/2017 Inactive hydrocodone 5 mg-acetaminophen 325 mg tablet RxNorm: 903118 1-2 Tablet(s) PO Q6 as needed 03/03/2017 03/15/2017 Inactive hydrocodone 5 mg-acetaminophen 325 mg tablet RxNorm: 320824 1 to 2 Tablet(s) PO Q6 as needed 02/15/2017 02/25/2017 Inactive hydrocodone 5 mg-acetaminophen 325 mg tablet RxNorm: 965592 1 to 2 Tablet(s) PO Q6 as needed 02/02/2017 02/12/2017 Inactive enalapril 5 mg-hydrochlorothiazide 12.5 mg tablet RxNorm: 532726 TAKE ONE TABLET BY MOUTH DAILY 01/23/2017 06/21/2017 Inactive diclofenac sodium 75 mg tablet,delayed release RxNorm: 432976 TAKE ONE TABLET BY MOUTH TWICE A DAY 01/23/2017 05/22/2017 Inactive hydrocodone 5 mg-acetaminophen 325 mg tablet RxNorm: 269483 1 to 2 Tablet(s) PO Q6 as needed 01/12/2017 01/22/2017 Inactive hydrocodone 5 mg-acetaminophen 325 mg tablet RxNorm: 625255 1 to 2 Tablet(s) PO Q6 as needed 12/29/2016 01/08/2017 Inactive hydrocodone 5 mg-acetaminophen 325 mg tablet RxNorm: 399955 1 to 2 Tablet(s) PO Q6 as needed 12/16/2016 12/26/2016 Inactive Cymbalta 60 mg capsule,delayed release RxNorm: 454866 TAKE ONE CAPSULE BY MOUTH DAILY 12/14/2016 05/12/2017 Inactive hydrocodone 5 mg-acetaminophen 325 mg tablet RxNorm: 700158 1 to 2 Tablet(s) PO Q6 as needed 11/30/2016 12/10/2016 Inactive Voltaren 1 % topical gel RxNorm: 509388 2 Gram(s) TOP QID bilateral SI joints 11/16/2016 01/14/2017 Inactive diclofenac sodium 75 mg tablet,delayed release RxNorm: 603174 TAKE ONE TABLET BY MOUTH TWICE A DAY 10/31/2016 01/22/2017 Inactive hydrocodone 5 mg-acetaminophen 325 mg tablet RxNorm: 027129 1 to 2 Tablet(s) PO Q6 as needed 10/27/2016 11/06/2016 Inactive hydrocodone 5 mg-acetaminophen 325 mg tablet RxNorm: 156945 1 to 2 Tablet(s) PO Q6 as needed 10/05/2016 10/15/2016 Inactive Effexor 75 mg tablet RxNorm: 184895 TAKE ONE TABLET BY MOUTH DAILY 10/03/2016 03/31/2017 Inactive Claritin-D 24 Hour 10 mg-240 mg tablet,extended release RxNorm: 2476637 Tablet(s) TAKE ONE TABLET BY MOUTH DAILY 09/26/2016 12/24/2016 Inactive hydrocodone 5 mg-acetaminophen 325 mg tablet RxNorm: 936696 1 to 2 Tablet(s) PO Q6 as needed 09/09/2016 09/19/2016 Inactive hydrocodone 5 mg-acetaminophen 325 mg tablet RxNorm: 684125 1 to 2 Tablet(s) PO Q6 as needed 08/19/2016 08/29/2016 Inactive hydrocodone 5 mg-acetaminophen 325 mg tablet RxNorm: 641163 1 to 2 Tablet(s) PO Q6 as needed 08/01/2016 08/11/2016 Inactive enalapril 5 mg-hydrochlorothiazide 12.5 mg tablet RxNorm: 122972 Tablet(s) TAKE ONE TABLET BY MOUTH DAILY 07/18/201601/13 Inactive Movantik 25 mg tablet RxNorm: 3106527 1 Tablet(s) PO QAM 201611/07/2017 Inactive hydrocodone 5 mg-acetaminophen 325 mg tablet RxNorm: 460568 1 to 2 Tablet(s) PO Q6 as needed 07/15/2016 07/25/2016 Inactive diclofenac sodium 75 mg tablet,delayed release RxNorm: 207895 TAKE ONE TABLET BY MOUTH TWICE A DAY 06/27/2016 10/24/2016 Inactive hydrocodone 5 mg-acetaminophen 325 mg tablet RxNorm: 212315 1 to 2 Tablet(s) PO Q6 as needed 06/16/2016 06/26/2016 Inactive Claritin-D 24 Hour 10 mg-240 mg tablet,extended release RxNorm: 5290889 Tablet(s) TAKE ONE TABLET BY MOUTH DAILY 06/10/2016 08/08/2016 Inactive Metanx (algal oil) 3 mg-35 mg-2 mg-90.314 mg capsule RxNorm: Capsule(s) TAKE ONE CAPSULE BY MOUTH TWO TIMES DAILY 06/02/2016 05/27/2017 Inactive hydrocodone 5 mg-acetaminophen 325 mg tablet RxNorm: 257523 1 to 2 Tablet(s) PO Q6 as needed 05/27/2016 06/06/2016 Inactive Valium 5 mg tablet RxNorm: 257908 Tablet(s) TAKE ONE TABLET BY MOUTH EVERY NIGHT AT BEDTIME 05/16/2016 07/14/2016 Inactive Metanx (algal oil) 3 mg-35 mg-2 mg-90.314 mg capsule RxNorm: TAKE ONE CAPSULE BY MOUTH TWO TIMES DAILY 05/11/20162015 Inactive hydrocodone 5 mg-acetaminophen 325 mg tablet RxNorm: 619036 1 to 2 Tablet(s) PO Q6 as needed 04/25/2016 05/02/2016 Inactive [SAVINGS FOR NON-COVERED DRUGS -- BIN: 632402, PCN: ASPROD1, Group: XXXXX, ID# [id number], Questions: . THIS IS NOT INSURANCE.] hydrocodone 5 mg-acetaminophen 325 mg tablet RxNorm: 738307 1 to 2 Tablet(s) PO Q6 as needed 04/01/2016 04/08/2016 Inactive [SAVINGS FOR NON-COVERED DRUGS -- BIN: 051952, PCN: ASPROD1, Group: XXXXX, ID# [id number], Questions: . THIS IS NOT INSURANCE.] diclofenac sodium 75 mg tablet,delayed release RxNorm: 461218 TAKE ONE TABLET BY MOUTH TWICE A DAY 03/21/2016 06/18/2016 Inactive enalapril 5 mg-hydrochlorothiazide 12.5 mg tablet RxNorm: 545249 TAKE ONE TABLET BY MOUTH DAILY 03/21/2016 07/17/2016 Inactive Claritin-D 24 Hour 10 mg-240 mg tablet,extended release RxNorm: 9957396 Tablet(s) TAKE ONE TABLET BY MOUTH DAILY 03/11/2016 06/08/2016 Inactive hydrocodone 5 mg-acetaminophen 325 mg tablet RxNorm: 748298 1 to 2 Tablet(s) PO Q6 as needed 03/08/2016 03/15/2016 Inactive [SAVINGS FOR NON-COVERED DRUGS -- BIN: 271388, PCN: ASPROD1, Group: XXXXX, ID# [id number], Questions: . THIS IS NOT INSURANCE.] simvastatin 40 mg tablet RxNorm: 637564 1 Tablet(s) PO QHS 10/03/2016 Inactive Effexor 75 mg tablet RxNorm: 322372 Tablet(s) TAKE ONE TABLET BY MOUTH DAILY 03/08/2016 10/02/2016 Inactive simvastatin 40 mg tablet RxNorm: 173810 TAKE ONE TABLET BY MOUTH EVERY NIGHT AT BEDTIME 02/05/2016 05/04/2016 Inactive Request already responded to by other means (e.g. phone or fax) hydrocodone 5 mg-acetaminophen 325 mg tablet RxNorm: 717728 1 to 2 Tablet(s) PO Q6 as needed 02/02/2016 02/09/2016 Inactive [SAVINGS FOR NON-COVERED DRUGS -- BIN: 896363, PCN: ASPROD1, Group: XXXXX, ID# [id number], Questions: . THIS IS NOT INSURANCE.] simvastatin 40 mg tablet RxNorm: 534015 1 Tablet(s) PO QHS 03/07/2016 Inactive Cymbalta 60 mg capsule,delayed release RxNorm: 411203 TAKE ONE CAPSULE BY MOUTH DAILY 01/14/2016 06/11/2016 Inactive Request already responded to by other means ( e.g. phone or fax) Claritin-D 24 Hour 10 mg-240 mg tablet,extended release RxNorm: 4829756 Tablet(s) TAKE ONE TABLET BY MOUTH DAILY 01/14/2016 02/12/2016 Inactive hydrocodone 5 mg-acetaminophen 325 mg tablet RxNorm: 990674 1 to 2 Tablet(s) PO Q6 as needed 01/14/2016 01/21/2016 Inactive [SAVINGS FOR NON-COVERED DRUGS -- BIN: 840451, PCN: ASPROD1, Group: XXXXX, ID# [id number], Questions: . THIS IS NOT INSURANCE.] Claritin-D 24 Hour 10 mg-240 mg tablet,extended release RxNorm: 8230973 TAKE ONE TABLET BY MOUTH DAILY 01/14/20162015 Inactive Cymbalta 60 mg capsule,delayed release RxNorm: 883344 Capsule(s) TAKE ONE CAPSULE BY MOUTH DAILY 01/12/2016 01/13/2016 Inactive Claritin-D 24 Hour 10 mg-240 mg tablet,extended release RxNorm: 4574955 TAKE ONE TABLET BY MOUTH DAILY 01/11/20162015 Inactive Claritin-D 24 Hour 10 mg-240 mg tablet,extended release RxNorm: 2430402 TAKE ONE TABLET BY MOUTH DAILY 01/11/20162015 Inactive Claritin-D 24 Hour 10 mg-240 mg tablet,extended release RxNorm: 0658842 TAKE ONE TABLET BY MOUTH DAILY 01/07/20162015 Inactive Effexor 75 mg tablet RxNorm: 425755 TAKE ONE TABLET BY MOUTH DAILY 01/01/2016 02/29/2016 Inactive diclofenac sodium 75 mg tablet,delayed release RxNorm: 756835 TAKE ONE TABLET BY MOUTH TWICE A DAY 12/23/2015 03/20/2016 Inactive enalapril 5 mg-hydrochlorothiazide 12.5 mg tablet RxNorm: 994583 TAKE ONE TABLET BY MOUTH DAILY 12/23/2015 03/20/2016 Inactive hydrocodone 5 mg-acetaminophen 325 mg tablet RxNorm: 180496 1 to 2 Tablet(s) PO Q6 as needed 12/22/2015 12/29/2015 Inactive [SAVINGS FOR NON-COVERED DRUGS -- BIN: 200370, PCN: ASPROD1, Group: XXXXX, ID# [id number], Questions: . THIS IS NOT INSURANCE.] Valium 5 mg tablet RxNorm: 943138 Tablet(s) TAKE ONE TABLET BY MOUTH EVERY NIGHT AT BEDTIME 12/01/2015 04/17/2018 Inactive hydrocodone 5 mg-acetaminophen 325 mg tablet RxNorm: 910576 1 to 2 Tablet(s) PO Q6 as needed 11/30/2015 12/07/2015 Inactive [SAVINGS FOR NON-COVERED DRUGS -- BIN: 605418, PCN: ASPROD1, Group: XXXXX, ID# [id number], Questions: . THIS IS NOT INSURANCE.] hydrocodone 5 mg-acetaminophen 325 mg tablet RxNorm: 860927 1 to 2 Tablet(s) PO Q6 as needed 11/09/2015 11/16/2015 Inactive [SAVINGS FOR NON-COVERED DRUGS -- BIN: 866781, PCN: ASPROD1, Group: XXXXX, ID# [id number], Questions: . THIS IS NOT INSURANCE.] Claritin-D 24 Hour 10 mg-240 mg tablet,extended release RxNorm: 9984668 Tablet(s) TAKE ONE TABLET BY MOUTH DAILY 11/05/2015 11/04/2015 Inactive Claritin-D 24 Hour 10 mg-240 mg tablet,extended release RxNorm: 8249921 Tablet(s) TAKE ONE TABLET BY MOUTH DAILY 11/05/2015 01/06/2016 Inactive Claritin-D 24 Hour 10 mg-240 mg tablet,extended release RxNorm: 0223551 Tablet(s) TAKE ONE TABLET BY MOUTH DAILY 10/30/2015 03/10/2016 Inactive hydrocodone 5 mg-acetaminophen 325 mg tablet RxNorm: 378911 1 to 2 Tablet(s) PO Q6 as needed 10/09/2015 10/16/2015 Inactive [SAVINGS FOR NON-COVERED DRUGS -- BIN: 517776, PCN: ASPROD1, Group: XXXXX, ID# [id number], Questions: . THIS IS NOT INSURANCE.] Effexor 75 mg tablet RxNorm: 573861 TAKE ONE TABLET BY MOUTH DAILY 10/05/2015 12/31/2015 Inactive simvastatin 40 mg tablet RxNorm: 831600 1 Tablet(s) PO QHS 01/31/2016 Inactive hydrocodone 5 mg-acetaminophen 325 mg tablet RxNorm: 500048 1 to 2 Tablet(s) PO Q6 as needed 09/15/2015 09/22/2015 Inactive [SAVINGS FOR NON-COVERED DRUGS -- BIN: 175555, PCN: ASPROD1, Group: XXXXX, ID# [id number], Questions: . THIS IS NOT INSURANCE.] Valium 5 mg tablet RxNorm: 308263 Tablet(s) TAKE ONE TABLET BY MOUTH EVERY NIGHT AT BEDTIME 09/08/2015 04/17/2018 Inactive enalapril 5 mg-hydrochlorothiazide 12.5 mg tablet RxNorm: 021529 Tablet(s) TAKE ONE TABLET BY MOUTH DAILY 08/21/201512/17 Inactive diclofenac sodium 75 mg tablet,delayed release RxNorm: 354807 1 Tablet(s) PO BID 08/21/2015 12/18/2015 Inactive hydrocodone 5 mg-acetaminophen 325 mg tablet RxNorm: 850427 1 to 2 Tablet(s) PO Q6 as needed 08/13/2015 08/20/2015 Inactive [SAVINGS FOR NON-COVERED DRUGS -- BIN: 648236, PCN: ASPROD1, Group: XXXXX, ID# [id number], Questions: . THIS IS NOT INSURANCE.] clindamycin 300 mg capsule RxNorm: 347652 1 Capsule(s) PO TID 08/06/2015 08/10/2015 Inactive Claritin-D 24 Hour 10 mg-240 mg tablet,extended release RxNorm: 5064351 Tablet(s) TAKE ONE TABLET BY MOUTH DAILY 07/23/2015 10/20/2015 Inactive hydrocodone 5 mg-acetaminophen 325 mg tablet RxNorm: 802471 1 to 2 Tablet(s) PO Q6 as needed 07/23/2015 07/30/2015 Inactive [SAVINGS FOR NON-COVERED DRUGS -- BIN: 763781, PCN: ASPROD1, Group: XXXXX, ID# [id number], Questions: . THIS IS NOT INSURANCE.] Claritin-D 24 Hour 10 mg-240 mg tablet,extended release RxNorm: 0982684 TAKE ONE TABLET BY MOUTH DAILY 07/22/20152015 Inactive Valium 5 mg tablet RxNorm: 757900 Tablet(s) TAKE ONE TABLET BY MOUTH EVERY NIGHT AT BEDTIME 07/22/2015 04/17/2018 Inactive Claritin-D 24 Hour 10 mg-240 mg tablet,extended release RxNorm: 5149318 TAKE ONE TABLET BY MOUTH DAILY 07/20/20152015 Inactive Cymbalta 60 mg capsule,delayed release RxNorm: 570389 TAKE ONE CAPSULE BY MOUTH DAILY 07/20/2015 01/11/2016 Inactive cyclobenzaprine 10 mg tablet RxNorm: 318185 TAKE ONE TABLET BY MOUTH AT BEDTIME NEEDED 07/06/2015 08/04/2015 Inactive hydrocodone 5 mg-acetaminophen 325 mg tablet RxNorm: 351471 1 to 2 Tablet(s) PO Q6 as needed 06/23/2015 06/30/2015 Inactive [SAVINGS FOR NON-COVERED DRUGS -- BIN: 526514, PCN: ASPROD1, Group: XXXXX, ID# [id number], Questions: . THIS IS NOT INSURANCE.] Effexor 75 mg tablet RxNorm: 876529 1 Tablet(s) PO daily 201409/28/2015 Inactive hydrocodone 5 mg-acetaminophen 325 mg tablet RxNorm: 460774 1 to 2 Tablet(s) PO Q6 as needed 05/22/2015 05/29/2015 Inactive [SAVINGS FOR NON-COVERED DRUGS -- BIN: 020859, PCN: ASPROD1, Group: XXXXX, ID# [id number], Questions: . THIS IS NOT INSURANCE.] Valium 5 mg tablet RxNorm: 621173 Tablet(s) TAKE ONE TABLET BY MOUTH EVERY NIGHT AT BEDTIME 05/22/2015 04/17/2018 Inactive diclofenac sodium 75 mg tablet,delayed release RxNorm: 159767 1 Tablet(s) PO BID 05/04/2015 08/20/2015 Inactive Metanx (algal oil) 3 mg-35 mg-2 mg-90.314 mg capsule RxNorm: 1 Capsule(s) PO BID 05/04/2015 04/27/2016 Inactive enalapril 5 mg-hydrochlorothiazide 12.5 mg tablet RxNorm: 780339 TAKE ONE TABLET BY MOUTH DAILY 04/27/2015 08/20/2015 Inactive hydrocodone 5 mg-acetaminophen 325 mg tablet RxNorm: 530034 1 to 2 Tablet(s) PO Q6 as needed 04/27/2015 05/04/2015 Inactive [SAVINGS FOR NON-COVERED DRUGS -- BIN: 898204, PCN: ASPROD1, Group: XXXXX, ID# [id number], Questions: . THIS IS NOT INSURANCE.] hydrocodone 5 mg-acetaminophen 325 mg tablet RxNorm: 056591 1 to 2 Tablet(s) PO Q6 as needed 03/26/2015 04/02/2015 Inactive [SAVINGS FOR NON-COVERED DRUGS -- BIN: 864866, PCN: ASPROD1, Group: XXXXX, ID# [id number], Questions: . THIS IS NOT INSURANCE.] Claritin-D 24 Hour 10 mg-240 mg tablet,extended release RxNorm: 0381853 Tablet(s) TAKE ONE TABLET BY MOUTH DAILY 03/24/2015 07/19/2015 Inactive Valium 5 mg tablet RxNorm: 567720 TAKE ONE TABLET BY MOUTH EVERY NIGHT AT BEDTIME 03/05/2015 04/03/2015 Inactive Valium 5 mg tablet RxNorm: 542541 1 Tablet(s) PO daily as needed 03/05/2015 03/05/2015 Inactive [SAVINGS FOR NON-COVERED DRUGS -- BIN:382827, PCN: ASPROD1, Group : XXXXX, ID# [id number], Questions: . THIS IS NOT INSURANCE.] hydrocodone 5 mg-acetaminophen 325 mg tablet RxNorm: 973145 1 to 2 Tablet(s) PO Q6 as needed 02/18/2015 02/25/2015 Inactive [SAVINGS FOR NON-COVERED DRUGS -- BIN: 522851, PCN: ASPROD1, Group: XXXXX, ID# [id number], Questions: . THIS IS NOT INSURANCE.] enalapril 5 mg-hydrochlorothiazide 12.5 mg tablet RxNorm: 374743 1 Tablet(s) PO daily 01/30/2015 04/26/2015 Inactive hydrocodone 5 mg-acetaminophen 325 mg tablet RxNorm: 167016 1 to 2 Tablet(s) PO Q6 as needed 01/22/2015 01/29/2015 Inactive [SAVINGS FOR NON-COVERED DRUGS -- BIN: 884348, PCN: ASPROD1, Group: XXXXX, ID# [id number], Questions: . THIS IS NOT INSURANCE.] Claritin-D 24 Hour 10 mg-240 mg tablet,extended release RxNorm: 0035447 TAKE ONE TABLET BY MOUTH DAILY 01/15/20152014 Inactive Claritin-D 24 Hour 10 mg-240 mg tablet,extended release RxNorm: 6240737 Tablet(s) TAKE ONE TABLET BY MOUTH DAILY 01/15/2015 01/14/2015 Inactive cyclobenzaprine 10 mg tablet RxNorm: 768581 1 Tablet(s) PO QHS as needed 12/29/2014 01/27/2015 Inactive hydrocodone 5 mg-acetaminophen 325 mg tablet RxNorm: 660900 1 to 2 Tablet(s) PO Q6 as needed 12/23/2014 12/30/2014 Inactive [SAVINGS FOR NON-COVERED DRUGS -- BIN: 485439, PCN: ASPROD1, Group: XXXXX, ID# [id number], Questions: . THIS IS NOT INSURANCE.] Cymbalta 60 mg capsule,delayed release RxNorm: 216745 1 Capsule(s) PO daily 12/18/2014 07/15/2015 Inactive Claritin-D 24 Hour 10 mg-240 mg tablet,extended release RxNorm: 1771816 TAKE ONE TABLET BY MOUTH DAILY 12/15/20142014 Inactive Claritin-D 24 Hour 10 mg-240 mg tablet,extended release RxNorm: 6435824 TAKE ONE TABLET BY MOUTH DAILY 12/15/20142014 Inactive Claritin-D 24 Hour 10 mg-240 mg tablet,extended release RxNorm: 1518982 TAKE ONE TABLET BY MOUTH DAILY 12/15/20142014 Inactive Claritin-D 24 Hour 10 mg-240 mg tablet,extended release RxNorm: 2967953 1 Tablet(s ) PO daily 12/10/2014 12/14/2014 Inactive hydrocodone 5 mg-acetaminophen 325 mg tablet RxNorm: 073915 1 to 2 Tablet(s) PO Q6 as needed 12/08/2014 12/22/2014 Inactive [SAVINGS FOR NON-COVERED DRUGS -- BIN: 178240, PCN: ASPROD1, Group: XXXXX, ID# [id number], Questions: . THIS IS NOT INSURANCE.] hydrocodone 5 mg-acetaminophen 325 mg tablet RxNorm: 900102 1 to 2 Tablet(s) PO Q6 as needed 11/25/2014 12/07/2014 Inactive [SAVINGS FOR NON-COVERED DRUGS -- BIN: 722643, PCN: ASPROD1, Group: XXXXX, ID# [id number], Questions: . THIS IS NOT INSURANCE.] Claritin-D 24 Hour 10 mg-240 mg tablet,extended release RxNorm: 8989424 1 Tablet(s ) PO daily 11/07/2014 12/06/2014 Inactive Claritin-D 24 Hour 10 mg-240 mg tablet,extended release RxNorm: 5153327 1 Tablet(s ) PO daily 11/07/2014 11/06/2014 Inactive hydrocodone 5 mg-acetaminophen 325 mg tablet RxNorm: 502119 1 to 2 Tablet(s) PO Q6 as needed 11/03/2014 11/24/2014 Inactive [SAVINGS FOR NON-COVERED DRUGS -- BIN: 487700, PCN: ASPROD1, Group: XXXXX, ID# [id number], Questions: . THIS IS NOT INSURANCE.] Valium 5 mg tablet RxNorm: 813035 1 Tablet(s) PO daily as needed 10/23/2014 12/20/2014 Inactive [SAVINGS FOR NON-COVERED DRUGS -- BIN:734766, PCN: ASPROD1, Group : XXXXX, ID# [id number], Questions: . THIS IS NOT INSURANCE.] Cialis 5 mg tablet RxNorm: 858525 1/2 Tablet(s) PO daily No Stop Date Active [SAVINGS FOR NON-COVERED DRUGS -- BIN:248596, PCN: ASPROD1, Group: XXXXX, ID# [id number], Questions: . THIS IS NOT INSURANCE.] aspirin 81 mg tablet RxNorm: 113369 1 Tablet(s) PO daily No Start Date Active Effexor 75 mg tablet RxNorm: 461081 1 Tablet(s) PO daily No Start Date 05/31/2015 Inactive Valium 5 mg tablet RxNorm: 305330 1 Tablet(s) PO daily as needed No Start Date 10/22/2014 Inactive simvastatin 40 mg tablet RxNorm: 160901 1 Tablet(s) PO QHS No Start Date 10/04/2015 Inactive enalapril 5 mg-hydrochlorothiazide 12.5 mg tablet RxNorm: 118546 oral No Start Date 01/29/2015 Inactive cyclobenzaprine 10 mg tablet RxNorm: 439440 1 Tablet(s) PO as needed No Start Date 12/28/2014 Inactive Cymbalta 60 mg capsule,delayed release RxNorm: 622782 1 Capsule(s) PO daily No Start Date 12/17/2014 Inactive hydrocodone 5 mg-acetaminophen 325 mg tablet RxNorm: 788709 1 to 2 Tablet(s) PO Q6 as needed No Start Date 11/02/2014 Inactive diclofenac sodium 75 mg tablet,delayed release RxNorm: 758206 1 Tablet(s) PO BID No Start Date 2015 Inactive Cialis 5 mg tablet RxNorm: 603215 1 Tablet(s) PO daily No Start Date 10/12/2014 Inactive Medication Administered Medication Codes Instructions Start Date Status ceftriaxone 500 mg solution for injection RxNorm: 6557745 1Gram 03/16/2017 No longer Active Immunizations No Immunization data Assessments Condition Codes Effective Dates Bilateral primary osteoarthritis of knee ICD-10: M17.0 ICD-9: 715.96 10/20/2017 Periapical abscess without sinus ICD-10: K04.7 ICD-9: 522.5 03/20/2017 Cellulitis and abscess of mouth ICD-10: K12.2 ICD-9: 528.3 03/20/2017 Low back pain ICD-10: M54.5 ICD-9: 724.2 11/16/2016 Essential (primary) hypertension ICD-10: I10 ICD-9: 401.9 [...] Visit Reason For Visit Effective Dates Notes knee pain 10/20/2017 oral pain 03/20/2017 low back pain 03/16/2017 oral pain 03/10/2017 low back pain 11/16/2016 knee pain 07/15/2016 knee pain 03/08/2016 medication follow up 11/26/2015 neck pain 08/06/2015 paresthesia 05/04/2015 sinus congestion 11/06/2014 Results Observation Observation Code Item Item Code Result Date Hepatitis C Antibody With Reflex For Hcv Antibody Verificat 796438 HEPATITIS C ANTIBODY NEGATIVE 07/19/2016 Lipid Ord30 CHOL 180 mg/dL 07/18/2016 Lipid Ord30 HDL 56.0 mg/dl 07/18/2016 Lipid Ord30 TRIG 153 mg/dL 07/18/2016 Lipid Ord30 LDL 93 mg/dL 07/18/2016 Lipid Ord30 C/HDL 3.2 Ratio 07/18/2016 Comp Metabolic Pkk983 NA 136 mEq/L 07/18/2016 Comp Metabolic Mus203 K 4.3 mEq/L 07/18/2016 Comp Metabolic Uzj364 CL 100 mEq/L 07/18/2016 Comp Metabolic Anj133 CO2 30.0 mEq/L 07/18/2016 Comp Metabolic Xpm749 ANION GAP 10 07/18/2016 Comp Metabolic Hle413 GLUCOSE 104 mg/dL 07/18/2016 Comp Metabolic Ipp699 Creat 1.0 mg/dL 07/18/2016 Comp Metabolic Ucz374 eGFR 81 ml/min/1.73m2 07/18/2016 Comp Metabolic Clk890 BUN 21 mg/dL 07/18/2016 Comp Metabolic Oqd271 B/C Ratio 20.8 Ratio 07/18/2016 Comp Metabolic Ttd810 CALCIUM 9.5 mg/dL 07/18/2016 Comp Metabolic Rjq287 ALK PHOS 45 U/L 07/18/2016 Comp Metabolic Qut230 AST(SGOT) 26 U/L 07/18/2016 Comp Metabolic Plg392 ALT(SGPT) 52 U/L 07/18/2016 Comp Metabolic Bvj686 BILI T 0.8 mg/dL 07/18/2016 Comp Metabolic Hhk336 ALBUMIN 4.7 g/dL 07/18/2016 Comp Metabolic Rlj250 TPRO 6.9 g/dL 07/18/2016 Comp Metabolic Sov020 GLOB 2.2 g/dL 07/18/2016 Comp Metabolic Ete701 A/G Ratio 2.2 Ratio 07/18/2016 Comp Metabolic Wug664 Osmo 275 mOsmo 07/18/2016 Cbc With Differential [...] 31.5 pg 07/18/2016 Cbc With Differential Ord2 [place]% 11.2 % 07/18/2016 Cbc With Differential Ord2 Eos% 3.2 % 07/18/2016 Cbc With Differential Ord2 MCHC 33.5 pg 07/18/2016 Cbc With Differential Ord2 Baso% 0.2 % 07/18/2016 Cbc With Differential Ord2 PLT 191 K/ul 07/18/2016 Cbc With Differential Ord2 Neut ABS# 3.29 K/ul 07/18/2016 Cbc With Differential Ord2 RDW 14.4 % 07/18/2016 Cbc With Differential Ord2 Lymph ABS# 0.69 K/ul 07/18/2016 Cbc With Differential Ord2 [place] ABS# 0.5 K/ul 07/18/2016 Cbc With Differential Ord2 Eos ABS# 0.2 K/ul 07/18/2016 Cbc With Differential Ord2 Baso ABS# 0.0 K/ul 07/18/2016 Tsh Ord6 hTSH II 1.99 uIU/mL 07/18/2016 Total Psa Ord10 PSA 0.75 ng/mL 07/18/2016 %Hba1C Faq185 % HbA1c 65556-9 5.8 % 07/18/2016 %Hba1C Mkb343 Gluc Ave 120 mg/dL 07/18/2016 Review of Systems System Result Effective Dates Eyes No vision change 10/20/2017 Ears/Nose/Throat/Neck No [...] CPT-4: J0696 03/16/2017 Vital Signs Date Vital 10/20/2017 Blood Pressure 1: 138/78 Code : 8480-6 BMI: 32.4 Code : 87209-5 Heart Rate 1 : 80 bpm Height: 5'10" SpO2: 98% Weight: 226 lbs 03/20/2017 Blood Pressure 1: 134/72 Code : 8480-6 Heart Rate 1: 87 bpm Height: 5'10" SpO2: 97% 03/16/2017 Blood Pressure 1: 150/84 Code : 8480-6 BMI: 32.4 Code : 49491-6 Heart Rate 1 : 98 bpm Height: 5'10" SpO2: 97% Weight: 226 lbs 03/10/2017 Blood Pressure 1: 140/72 Code : 8480-6 BMI: 32.4 Code : 59169-3 Heart Rate 1 : 81 bpm Height: 5'10" SpO2: 97% Weight: 226 lbs 11/16/2016 Blood Pressure 1: 142/80 Code : 8480-6 BMI: 32.1 Code : 85487-8 Heart Rate 1 : 95 bpm Height: 5'10" SpO2: 98% Weight: 224 lbs 07/15/2016 Blood Pressure 1: 130/78 Code : 8480-6 BMI: 32.0 Code : 60554-7 Heart Rate 1 : 85 bpm Height: 5'10" SpO2: 95% Weight: 223 lbs 03/08/2016 Blood Pressure 1: 138/84 Code : 8480-6 BMI: 31.6 Code : 97340-5 Heart Rate 1 : 86 bpm Height: 5'10" SpO2: 98% Weight: 220 lbs 11/26/2015 Blood Pressure 1: 132/82 Code : 8480-6 BMI: 31.6 Code : 88017-3 Height: 5'10 " Weight: 220 lbs 08/06/2015 Blood Pressure 1: 138/74 Code : 8480-6 BMI: 31.0 Code : 06206-4 Heart Rate 1 : 87 bpm Height: 5'10" SpO2: 95% Weight: 216 lbs 05/04/2015 Blood Pressure 1: 128/80 Code : 8480-6 BMI: 33.6 Code : 86833-5 Heart Rate 1 : 94 bpm Height: 5'10" SpO2: 97% Weight: 234 lbs 11/06/2014 Blood Pressure 1: 132/92 Code : 8480-6 BMI: 31.1 Code : 31741-1 Heart Rate 1 : 88 bpm Height: 5'10" SpO2: 98% Weight: 217 lbs Functional Status No Functional Status data History of Present Illness Symptom Name Status Result Effective Date Notes knee pain Location on the left 10/20/2017 [...] data Encounters Encounter Performer Location Codes Date 33150 EST. PATIENT, LEVEL IV Diagnosis: Bilateral primary osteoarthritis of knee[ICD10: M17.0] Julianna Mcfarlane MD, [facility] CPT-4: 38419 10/20/2017 37408 EST. PATIENT, LEVEL IV Diagnosis: Periapical abscess without sinus[ICD10: K04.7] Diagnosis: Cellulitis and abscess of mouth[ICD10: K12.2] [facility] CPT-4: 13705 03/20/2017 ([id number]) 09502 EST. PATIENT, LEVEL III Diagnosis: Periapical abscess without sinus[ICD10: K04.7] Diagnosis: Cellulitis and abscess of mouth[ICD10: K12.2] [facility] CPT-4: 48204 03/16/2017 ([id number]) 88650 EST. PATIENT, LEVEL III Diagnosis: Periapical abscess without sinus[ICD10: K04.7] [facility] CPT-4: 21518 03/10/2017 ([id number]) 21620 EST. PATIENT, LEVEL IV Diagnosis: Essential (primary) hypertension[ICD10: I10] Diagnosis: Low back pain[ICD10: M54.5] [facility] CPT- 4: 65548 11/16/2016 ([id number]) 43308 EST. PATIENT, LEVEL IV Diagnosis: Mixed hyperlipidemia[ICD10: E78.2] Diagnosis: Essential (primary) hypertension[ICD10: I10] Diagnosis: Impaired fasting glucose[ICD10: R73.01] Diagnosis: Encounter for screening for malignant neoplasm of prostate[ICD10: Z12.5] Diagnosis: Encounter for screening for other viral diseases[ICD10: Z11.59] Diagnosis: Drug induced constipation[ICD10: K59.03] [facility] CPT-4: 24534 07/15/2016 ([id number]) 58111 EST. PATIENT, LEVEL III Diagnosis: Bilateral primary osteoarthritis of knee[ICD10: M17.0] [facility] CPT-4: 35516 03/08/2016 ([id number]) 06317 EST. PATIENT, LEVEL III Diagnosis: Bilateral primary osteoarthritis of knee[ICD10: M17.0] Niya Mcfarlane MD, [facility] CPT-4: 75913 11/26/2015 [id number] EST. PATIENT, LEVEL IV Diagnosis: Cervicalgia[ICD10: M54.2] Diagnosis: Other specified polyneuropathies[ICD10: G62.89] Diagnosis: Dental caries, unspecified[ICD10: K02.9] Diagnosis: Major depressive disorder, single episode, unspecified[ICD10: F32.9] Niya Mcfarlane MD, [facility] CPT-4: 28401 08/06/2015 ([id number]) 07801 EST. PATIENT, LEVEL IV Diagnosis: Mixed hyperlipidemia[ICD10: E78.2] Diagnosis: Idiopathic gout, unspecified ankle and foot[ICD10: M10.079] Diagnosis: Other specified polyneuropathies[ICD10: G62.89] Diagnosis: Morbid (severe) obesity due to excess calories[ICD10: E66.01] Mayte Mcfarlane MD, [facility] CPT-4: 80996 05/04/2015 ([id number]) OFFICE VISIT, NEW - LEVEL 4 Diagnosis: GOUT[ICD9: 274.9] Diagnosis: Sinusitis, acute[ICD9: 461.9] Diagnosis: HYPERLIPIDEMIA[ICD9: 272.4] Mayte Mcfarlane MD, [facility] CPT- 4: 29173 11/06/2014 Plan of Care Planned Activity Notes Codes Status Date Visit Plan: OA knees - pt has chronic pain - has been maintained on current medications, has not sought out other medications, only uses PRN pain medications as directed, and understands the consequences of over- medication. 10/20/2017 Appointment: Julianna Stanford WPtel: [address] [place], [place] [phone] (30 min) Complex 10/20/2017 Patient Education: Patient Medication Summary Completed 10/20/2017 Appointment: Julianna Stanford WPtel: [address] [place], [place] [phone] (15 min) Moderate 10/19/2017 Visit Plan: Cellulitis/Abscess - continue with current treatment course - restart keflex as patient had improvement of symptoms on the rocephin. continue with clindamycin and increase probiotic to tid dosing. Keep follow up appointment with Dr. Hendrix on 03/28. Notify clinic with any changes or concerns, or with any questions. 03/20/2017 Appointment: Julianna Stanford WPtel: [phone] [phone] (30 min) Complex 03/20/2017 Patient Education: Patient [...] tid dosing. 03/16/2017 Appointment: Mayte Mcfarlane WPtel: [phone] [phone] (15 min) Moderate 03/16/2017 Patient Education: Patient Medication Summary Completed 03/16/2017 Visit Plan: Abscessed tooth-discussed with Dr Mcfarlane- plan for IV abx x 3 days-will start with clindamycin and rocephin today and continue rocephin Monday and Monday-will increase dose of oral clindamycin - rx sent to patient's pharmacy and instructed on use. Patient verbalized understanding of plan. 03/10/2017 Appointment: Niya Bryant WPtel: [phone] [phone] (15 min) Moderate 03/10/2017 Patient Education: Patient [...] they worsen. 11/16/2016 Appointment: Mayte Mcfarlane WPtel: [facility] (15 min) Moderate 11/16/2016 Patient Education: [...] hgb a1c 07/15/2016 Appointment: [facility]el[phone] (15 min) Moderate 07/15/2016 Patient Education: Patient Medication Summary Completed 07/15/2016 Patient Education: Obesity Completed 07/15/2016 Patient Education: Hypertension Completed 07/15/2016 Visit Plan: OA knees - pt has chronic pain - has been maintained on current medications, has not sought out other medications, only uses PRN pain medications as directed, and understands the consequences of over- medication. 03/08/2016 Appointment: Ni[facility] Bryant [facility]el[phone] (30 min) Complex 03/08/2016 Patient Education: [...] plan. 11/26/2015 Appointment: Bryant Niya WPtel: [phone] [phone] (30 min) Complex 11/26/2015 Patient Education: Patient [...] to medications. 11/06/2014 Appointment: [facility] [phone] [facility] [place] New Patient 11/06/2014 Patient [...] use. Patient verbalized understanding of plan. . Opioid induced constipation-samples of movantik provided [...]
--- OUTSIDE RECORDS SUMMARY | 2018-07-11 13:04 | XMS REPORT | CCD ---
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 Name Role Phone PP Unavailable CCM Unavailable Summary Purpose Interface Exchange Insurance Providers Payer name Policy type / Coverage type Covered constitution party ID Effective Begin Date Effective End Date Blue Cross Blue [facility] Blue Cross/Blue Shield [id number] Unknown Unknown Family history Father Diagnosis Age At Onset Cancer Unknown Stroke Unknown Heart Attack Unknown Hyperlipidemia Unknown Diabetes mellitus Type 2 Unknown Arthritis Unknown Heart disease Unknown Mother Diagnosis Age At Onset Arthritis Unknown Hypertension Unknown Breast cancer Unknown Sister Diagnosis Age At Onset Multiple sclerosis Unknown Social History Social History Element Codes Description Effective Dates Employment Unknown 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..] Start Date Stop Date Status Fill Instructions Cymbalta 60 mg capsule,delayed release RxNorm: 501042 TAKE ONE CAPSULE BY MOUTH DAILY 05/14/2018 08/11/2018 Active diclofenac sodium 75 mg tablet,delayed release RxNorm: 572379 TAKE ONE TABLET BY MOUTH TWICE A DAY 04/23/2018 09/19/2018 Active Valium 5 mg tablet RxNorm: 588159 Tablet(s) TAKE ONE TABLET BY MOUTH EVERY NIGHT AT BEDTIME 04/18/2018 05/17/2018 Active hydrocodone 10 mg-acetaminophen 325 mg tablet RxNorm: 544165 1 Tablet(s) PO QID as needed tooth abscess pain or back pain 04/16/2018 05/15/2018 Active hydrocodone 10 mg-acetaminophen 325 mg tablet RxNorm: 245429 1 Tablet(s) PO QID as needed tooth abscess pain or back pain 03/15/2018 04/13/2018 Inactive Effexor 75 mg tablet RxNorm: 636871 TAKE ONE TABLET BY MOUTH DAILY 03/14/2018 08/10/2018 Active hydrocodone 10 mg-acetaminophen 325 mg tablet RxNorm: 009224 1 Tablet(s) PO QID as needed tooth abscess pain or back pain 02/16/2018 03/14/2018 Inactive simvastatin 40 mg tablet RxNorm: 509914 TAKE ONE TABLET BY MOUTH EVERY NIGHT AT BEDTIME 02/12/2018 06/11/2018 Active Cymbalta 60 mg capsule,delayed release RxNorm: 924408 TAKE ONE CAPSULE BY MOUTH DAILY 02/12/2018 05/12/2018 Inactive diclofenac sodium 75 mg tablet,delayed release RxNorm: 604168 TAKE ONE TABLET BY MOUTH TWICE A DAY 01/26/2018 04/22/2018 Inactive hydrocodone 10 mg-acetaminophen 325 mg tablet RxNorm: 335038 1 Tablet(s) PO QID as needed tooth abscess pain or back pain 01/18/2018 02/15/2018 Inactive Claritin-D 24 Hour 10 mg-240 mg tablet,extended release RxNorm: 0473324 Tablet(s) TAKE ONE TABLET BY MOUTH DAILY 01/08/2018 04/07/2018 Inactive enalapril 5 mg-hydrochlorothiazide 12.5 mg tablet RxNorm: 669353 TAKE ONE TABLET BY MOUTH DAILY 12/29/2017 05/27/2018 Active hydrocodone 10 mg-acetaminophen 325 mg tablet RxNorm: 856267 1 Tablet(s) PO QID as needed tooth abscess pain or back pain 12/21/2017 01/17/2018 Inactive Cymbalta 60 mg capsule,delayed release RxNorm: 905414 TAKE ONE CAPSULE BY MOUTH DAILY 12/15/2017 02/11/2018 Inactive hydrocodone 10 mg-acetaminophen 325 mg tablet RxNorm: 677388 1 Tablet(s) PO QID as needed tooth abscess pain or back pain 11/22/2017 11/21/2017 Inactive hydrocodone 10 mg-acetaminophen 325 mg tablet RxNorm: 630015 1 Tablet(s) PO QID as needed tooth abscess pain or back pain 11/22/2017 12/20/2017 Inactive Movantik 25 mg tablet RxNorm: 4698178 1 Tablet(s) PO QAM 201712/07/2017 Inactive hydrocodone 10 mg-acetaminophen 325 mg tablet RxNorm: 868762 1 Tablet(s) PO QID as needed tooth abscess pain or back pain 10/20/2017 11/18/2017 Inactive Effexor 75 mg tablet RxNorm: 487601 TAKE ONE TABLET BY MOUTH DAILY 10/10/2017 03/08/2018 Inactive diclofenac sodium 75 mg tablet,delayed release RxNorm: 416514 TAKE ONE TABLET BY MOUTH TWICE A DAY 10/02/2017 01/25/2018 Inactive hydrocodone 10 mg-acetaminophen 325 mg tablet RxNorm: 875175 1 Tablet(s) PO QID as needed tooth abscess pain or back pain 09/27/2017 10/26/2017 Inactive simvastatin 40 mg tablet RxNorm: 345085 TAKE ONE TABLET BY MOUTH EVERY NIGHT AT BEDTIME 09/13/2017 02/09/2018 Inactive Cymbalta 60 mg capsule,delayed release RxNorm: 486897 TAKE ONE CAPSULE BY MOUTH DAILY 09/13/2017 12/11/2017 Inactive Claritin-D 24 Hour 10 mg-240 mg tablet,extended release RxNorm: 7465256 Tablet(s) TAKE ONE TABLET BY MOUTH DAILY 08/28/2017 11/25/2017 Inactive Claritin-D 24 Hour 10 mg-240 mg tablet,extended release RxNorm: 2855563 TAKE ONE TABLET BY MOUTH DAILY 08/28/20172017 Inactive hydrocodone 10 mg-acetaminophen 325 mg tablet RxNorm: 664833 1 Tablet(s) PO QID as needed tooth abscess pain or back pain 08/25/2017 09/23/2017 Inactive Valium 5 mg tablet RxNorm: 716423 Tablet(s) TAKE ONE TABLET BY MOUTH EVERY NIGHT AT BEDTIME 08/07/2017 11/02/2017 Inactive Metanx (algal oil) 3 mg-35 mg-2 mg-90.314 mg capsule RxNorm: TAKE ONE CAPSULE BY MOUTH TWO TIMES DAILY 08/02/20172017 Inactive hydrocodone 10 mg-acetaminophen 325 mg tablet RxNorm: 899517 1 Tablet(s) PO QID as needed tooth abscess pain or back pain 07/27/2017 08/24/2017 Inactive enalapril 5 mg-hydrochlorothiazide 12.5 mg tablet RxNorm: 017597 TAKE ONE TABLET BY MOUTH DAILY 07/03/2017 12/28/2017 Inactive hydrocodone 10 mg-acetaminophen 325 mg tablet RxNorm: 195137 1 Tablet(s) PO QID as needed tooth abscess pain or back pain 06/23/2017 07/22/2017 Inactive hydrocodone 10 mg-acetaminophen 325 mg tablet RxNorm: 337888 1 Tablet(s) PO QID as needed tooth abscess pain or back pain 05/31/2017 06/22/2017 Inactive diclofenac sodium 75 mg tablet,delayed release RxNorm: 082170 TAKE ONE TABLET BY MOUTH TWICE A DAY 05/29/2017 09/25/2017 Inactive Valium 5 mg tablet RxNorm: 484051 Tablet(s) TAKE ONE TABLET BY MOUTH EVERY NIGHT AT BEDTIME 05/16/2017 04/17/2018 Inactive Cymbalta 60 mg capsule,delayed release RxNorm: 752493 TAKE ONE CAPSULE BY MOUTH DAILY 05/15/2017 09/11/2017 Inactive hydrocodone 10 mg-acetaminophen 325 mg tablet RxNorm: 554719 1 Tablet(s) PO QID as needed tooth abscess pain or back pain 2017 05/30/2017 Inactive Claritin-D 24 Hour 10 mg-240 mg tablet,extended release RxNorm: 0693729 Tablet(s) TAKE ONE TABLET BY MOUTH DAILY 04/19/2017 07/17/2017 Inactive hydrocodone 5 mg-acetaminophen 325 mg tablet RxNorm: 218173 1-2 Tablet(s) PO Q6 as needed 04/18/2017 05/02/2017 Inactive Effexor 75 mg tablet RxNorm: 364909 TAKE ONE TABLET BY MOUTH DAILY 04/13/2017 10/09/2017 Inactive Keflex 500 mg capsule RxNorm: 694593 1 Capsule(s) PO TID 201603/26/2017 Inactive clindamycin 300 mg capsule RxNorm: 177027 1 Capsule(s) PO TID 03/20/2017 03/26/2017 Inactive ceftriaxone 500 mg solution for injection RxNorm: 5458326 1 Gram(s) Inj 03/16/2017 03/16/2017 Inactive clindamycin 300 mg capsule RxNorm: 724634 1 Capsule(s) PO TID 03/16/2017 03/19/2017 Inactive hydrocodone 5 mg-acetaminophen 325 mg tablet RxNorm: 639514 1-2 Tablet(s) PO Q6 as needed 03/16/2017 03/16/2017 Inactive Keflex 500 mg capsule RxNorm: 603510 1 Capsule(s) PO TID 201603/19/2017 Inactive hydrocodone 10 mg-acetaminophen 325 mg tablet RxNorm: 746386 1 Tablet(s) PO QID as needed tooth abscess pain or back pain 03/16/2017 04/14/2017 Inactive simvastatin 40 mg tablet RxNorm: 999862 TAKE ONE TABLET BY MOUTH EVERY NIGHT AT BEDTIME 03/13/2017 09/08/2017 Inactive clindamycin 300 mg capsule RxNorm: 775186 1 Capsule(s) PO TID 03/10/2017 03/15/2017 Inactive hydrocodone 5 mg-acetaminophen 325 mg tablet RxNorm: 252195 1-2 Tablet(s) PO Q6 as needed 03/03/2017 03/15/2017 Inactive hydrocodone 5 mg-acetaminophen 325 mg tablet RxNorm: 324416 1 to 2 Tablet(s) PO Q6 as needed 02/15/2017 02/25/2017 Inactive hydrocodone 5 mg-acetaminophen 325 mg tablet RxNorm: 749022 1 to 2 Tablet(s) PO Q6 as needed 02/02/2017 02/12/2017 Inactive enalapril 5 mg-hydrochlorothiazide 12.5 mg tablet RxNorm: 439612 TAKE ONE TABLET BY MOUTH DAILY 01/23/2017 06/21/2017 Inactive diclofenac sodium 75 mg tablet,delayed release RxNorm: 578781 TAKE ONE TABLET BY MOUTH TWICE A DAY 01/23/2017 05/22/2017 Inactive hydrocodone 5 mg-acetaminophen 325 mg tablet RxNorm: 447200 1 to 2 Tablet(s) PO Q6 as needed 01/12/2017 01/22/2017 Inactive hydrocodone 5 mg-acetaminophen 325 mg tablet RxNorm: 255236 1 to 2 Tablet(s) PO Q6 as needed 12/29/2016 01/08/2017 Inactive hydrocodone 5 mg-acetaminophen 325 mg tablet RxNorm: 588940 1 to 2 Tablet(s) PO Q6 as needed 12/16/2016 12/26/2016 Inactive Cymbalta 60 mg capsule,delayed release RxNorm: 362979 TAKE ONE CAPSULE BY MOUTH DAILY 12/14/2016 05/12/2017 Inactive hydrocodone 5 mg-acetaminophen 325 mg tablet RxNorm: 377672 1 to 2 Tablet(s) PO Q6 as needed 11/30/2016 12/10/2016 Inactive Voltaren 1 % topical gel RxNorm: 674860 2 Gram(s) TOP QID bilateral SI joints 11/16/2016 01/14/2017 Inactive diclofenac sodium 75 mg tablet,delayed release RxNorm: 175242 TAKE ONE TABLET BY MOUTH TWICE A DAY 10/31/2016 01/22/2017 Inactive hydrocodone 5 mg-acetaminophen 325 mg tablet RxNorm: 428832 1 to 2 Tablet(s) PO Q6 as needed 10/27/2016 11/06/2016 Inactive hydrocodone 5 mg-acetaminophen 325 mg tablet RxNorm: 441301 1 to 2 Tablet(s) PO Q6 as needed 10/05/2016 10/15/2016 Inactive Effexor 75 mg tablet RxNorm: 390792 TAKE ONE TABLET BY MOUTH DAILY 10/03/2016 03/31/2017 Inactive Claritin-D 24 Hour 10 mg-240 mg tablet,extended release RxNorm: 0083638 Tablet(s) TAKE ONE TABLET BY MOUTH DAILY 09/26/2016 12/24/2016 Inactive hydrocodone 5 mg-acetaminophen 325 mg tablet RxNorm: 475166 1 to 2 Tablet(s) PO Q6 as needed 09/09/2016 09/19/2016 Inactive hydrocodone 5 mg-acetaminophen 325 mg tablet RxNorm: 122281 1 to 2 Tablet(s) PO Q6 as needed 08/19/2016 08/29/2016 Inactive hydrocodone 5 mg-acetaminophen 325 mg tablet RxNorm: 434437 1 to 2 Tablet(s) PO Q6 as needed 08/01/2016 08/11/2016 Inactive enalapril 5 mg-hydrochlorothiazide 12.5 mg tablet RxNorm: 538882 Tablet(s) TAKE ONE TABLET BY MOUTH DAILY 07/18/201601/13 Inactive Movantik 25 mg tablet RxNorm: 6242667 1 Tablet(s) PO QAM 201611/07/2017 Inactive hydrocodone 5 mg-acetaminophen 325 mg tablet RxNorm: 796440 1 to 2 Tablet(s) PO Q6 as needed 07/15/2016 07/25/2016 Inactive diclofenac sodium 75 mg tablet,delayed release RxNorm: 277505 TAKE ONE TABLET BY MOUTH TWICE A DAY 06/27/2016 10/24/2016 Inactive hydrocodone 5 mg-acetaminophen 325 mg tablet RxNorm: 903974 1 to 2 Tablet(s) PO Q6 as needed 06/16/2016 06/26/2016 Inactive Claritin-D 24 Hour 10 mg-240 mg tablet,extended release RxNorm: 9393952 Tablet(s) TAKE ONE TABLET BY MOUTH DAILY 06/10/2016 08/08/2016 Inactive Metanx (algal oil) 3 mg-35 mg-2 mg-90.314 mg capsule RxNorm: Capsule(s) TAKE ONE CAPSULE BY MOUTH TWO TIMES DAILY 06/02/2016 05/27/2017 Inactive hydrocodone 5 mg-acetaminophen 325 mg tablet RxNorm: 290958 1 to 2 Tablet(s) PO Q6 as needed 05/27/2016 06/06/2016 Inactive Valium 5 mg tablet RxNorm: 826356 Tablet(s) TAKE ONE TABLET BY MOUTH EVERY NIGHT AT BEDTIME 05/16/2016 07/14/2016 Inactive Metanx (algal oil) 3 mg-35 mg-2 mg-90.314 mg capsule RxNorm: TAKE ONE CAPSULE BY MOUTH TWO TIMES DAILY 05/11/20162015 Inactive hydrocodone 5 mg-acetaminophen 325 mg tablet RxNorm: 596908 1 to 2 Tablet(s) PO Q6 as needed 04/25/2016 05/02/2016 Inactive [SAVINGS FOR NON-COVERED DRUGS -- BIN: 291400, PCN: ASPROD1, Group: XXXXX, ID# [id number], Questions: . THIS IS NOT INSURANCE.] hydrocodone 5 mg-acetaminophen 325 mg tablet RxNorm: 828435 1 to 2 Tablet(s) PO Q6 as needed 04/01/2016 04/08/2016 Inactive [SAVINGS FOR NON-COVERED DRUGS -- BIN: 499247, PCN: ASPROD1, Group: XXXXX, ID# [id number], Questions: . THIS IS NOT INSURANCE.] diclofenac sodium 75 mg tablet,delayed release RxNorm: 355798 TAKE ONE TABLET BY MOUTH TWICE A DAY 03/21/2016 06/18/2016 Inactive enalapril 5 mg-hydrochlorothiazide 12.5 mg tablet RxNorm: 515746 TAKE ONE TABLET BY MOUTH DAILY 03/21/2016 07/17/2016 Inactive Claritin-D 24 Hour 10 mg-240 mg tablet,extended release RxNorm: 1829654 Tablet(s) TAKE ONE TABLET BY MOUTH DAILY 03/11/2016 06/08/2016 Inactive hydrocodone 5 mg-acetaminophen 325 mg tablet RxNorm: 810305 1 to 2 Tablet(s) PO Q6 as needed 03/08/2016 03/15/2016 Inactive [SAVINGS FOR NON-COVERED DRUGS -- BIN: [id number], PCN: ASPROD1, Group: XXXXX, ID# [id number], Questions: . THIS IS NOT INSURANCE.] simvastatin 40 mg tablet RxNorm: 412261 1 Tablet(s) PO QHS 10/03/2016 Inactive Effexor 75 mg tablet RxNorm: 626904 Tablet(s) TAKE ONE TABLET BY MOUTH DAILY 03/08/2016 10/02/2016 Inactive simvastatin 40 mg tablet RxNorm: 124110 TAKE ONE TABLET BY MOUTH EVERY NIGHT AT BEDTIME 02/05/2016 05/04/2016 Inactive Request already responded to by other means (e.g. phone or fax) hydrocodone 5 mg-acetaminophen 325 mg tablet RxNorm: 021145 1 to 2 Tablet(s) PO Q6 as needed 02/02/2016 02/09/2016 Inactive [SAVINGS FOR NON-COVERED DRUGS -- BIN: [id number], PCN: ASPROD1, Group: XXXXX, ID# [id number], Questions: . THIS IS NOT INSURANCE.] simvastatin 40 mg tablet RxNorm: 269188 1 Tablet(s) PO QHS 03/07/2016 Inactive Cymbalta 60 mg capsule,delayed release RxNorm: 468644 TAKE ONE CAPSULE BY MOUTH DAILY 01/14/2016 06/11/2016 Inactive Request already responded to by other means ( e.g. phone or fax) Claritin-D 24 Hour 10 mg-240 mg tablet,extended release RxNorm: 0168282 Tablet(s) TAKE ONE TABLET BY MOUTH DAILY 01/14/2016 02/12/2016 Inactive hydrocodone 5 mg-acetaminophen 325 mg tablet RxNorm: 574757 1 to 2 Tablet(s) PO Q6 as needed 01/14/2016 01/21/2016 Inactive [SAVINGS FOR NON-COVERED DRUGS -- BIN: 806386, PCN: ASPROD1, Group: XXXXX, ID# [id number], Questions: . THIS IS NOT INSURANCE.] Claritin-D 24 Hour 10 mg-240 mg tablet,extended release RxNorm: 4361662 TAKE ONE TABLET BY MOUTH DAILY 01/14/20162015 Inactive Cymbalta 60 mg capsule,delayed release RxNorm: 861664 Capsule(s) TAKE ONE CAPSULE BY MOUTH DAILY 01/12/2016 01/13/2016 Inactive Claritin-D 24 Hour 10 mg-240 mg tablet,extended release RxNorm: 3642340 TAKE ONE TABLET BY MOUTH DAILY 01/11/20162015 Inactive Claritin-D 24 Hour 10 mg-240 mg tablet,extended release RxNorm: 6846833 TAKE ONE TABLET BY MOUTH DAILY 01/11/20162015 Inactive Claritin-D 24 Hour 10 mg-240 mg tablet,extended release RxNorm: 3559534 TAKE ONE TABLET BY MOUTH DAILY 01/07/20162015 Inactive Effexor 75 mg tablet RxNorm: 264977 TAKE ONE TABLET BY MOUTH DAILY 01/01/2016 02/29/2016 Inactive diclofenac sodium 75 mg tablet,delayed release RxNorm: 726783 TAKE ONE TABLET BY MOUTH TWICE A DAY 12/23/2015 03/20/2016 Inactive enalapril 5 mg-hydrochlorothiazide 12.5 mg tablet RxNorm: 325250 TAKE ONE TABLET BY MOUTH DAILY 12/23/2015 03/20/2016 Inactive hydrocodone 5 mg-acetaminophen 325 mg tablet RxNorm: 962760 1 to 2 Tablet(s) PO Q6 as needed 12/22/2015 12/29/2015 Inactive [SAVINGS FOR NON-COVERED DRUGS -- BIN: 351298, PCN: ASPROD1, Group: XXXXX, ID# [id number], Questions: . THIS IS NOT INSURANCE.] Valium 5 mg tablet RxNorm: 353562 Tablet(s) TAKE ONE TABLET BY MOUTH EVERY NIGHT AT BEDTIME 12/01/2015 04/17/2018 Inactive hydrocodone 5 mg-acetaminophen 325 mg tablet RxNorm: 126231 1 to 2 Tablet(s) PO Q6 as needed 11/30/2015 12/07/2015 Inactive [SAVINGS FOR NON-COVERED DRUGS -- BIN: 317355, PCN: ASPROD1, Group: XXXXX, ID# [id number], Questions: . THIS IS NOT INSURANCE.] hydrocodone 5 mg-acetaminophen 325 mg tablet RxNorm: 195369 1 to 2 Tablet(s) PO Q6 as needed 11/09/2015 11/16/2015 Inactive [SAVINGS FOR NON-COVERED DRUGS -- BIN: 763454, PCN: ASPROD1, Group: XXXXX, ID# [id number], Questions: . THIS IS NOT INSURANCE.] Claritin-D 24 Hour 10 mg-240 mg tablet,extended release RxNorm: 2307197 Tablet(s) TAKE ONE TABLET BY MOUTH DAILY 11/05/2015 11/04/2015 Inactive Claritin-D 24 Hour 10 mg-240 mg tablet,extended release RxNorm: 7837130 Tablet(s) TAKE ONE TABLET BY MOUTH DAILY 11/05/2015 01/06/2016 Inactive Claritin-D 24 Hour 10 mg-240 mg tablet,extended release RxNorm: 5434224 Tablet(s) TAKE ONE TABLET BY MOUTH DAILY 10/30/2015 03/10/2016 Inactive hydrocodone 5 mg-acetaminophen 325 mg tablet RxNorm: 746338 1 to 2 Tablet(s) PO Q6 as needed 10/09/2015 10/16/2015 Inactive [SAVINGS FOR NON-COVERED DRUGS -- BIN: 694763, PCN: ASPROD1, Group: XXXXX, ID# [id number], Questions: . THIS IS NOT INSURANCE.] Effexor 75 mg tablet RxNorm: 331974 TAKE ONE TABLET BY MOUTH DAILY 10/05/2015 12/31/2015 Inactive simvastatin 40 mg tablet RxNorm: 045024 1 Tablet(s) PO QHS 01/31/2016 Inactive hydrocodone 5 mg-acetaminophen 325 mg tablet RxNorm: 853097 1 to 2 Tablet(s) PO Q6 as needed 09/15/2015 09/22/2015 Inactive [SAVINGS FOR NON-COVERED DRUGS -- BIN: 772851, PCN: ASPROD1, Group: XXXXX, ID# [id number], Questions: . THIS IS NOT INSURANCE.] Valium 5 mg tablet RxNorm: 793579 Tablet(s) TAKE ONE TABLET BY MOUTH EVERY NIGHT AT BEDTIME 09/08/2015 04/17/2018 Inactive enalapril 5 mg-hydrochlorothiazide 12.5 mg tablet RxNorm: 962451 Tablet(s) TAKE ONE TABLET BY MOUTH DAILY 08/21/201512/17 Inactive diclofenac sodium 75 mg tablet,delayed release RxNorm: 954840 1 Tablet(s) PO BID 08/21/2015 12/18/2015 Inactive hydrocodone 5 mg-acetaminophen 325 mg tablet RxNorm: 901538 1 to 2 Tablet(s) PO Q6 as needed 08/13/2015 08/20/2015 Inactive [SAVINGS FOR NON-COVERED DRUGS -- BIN: 995289, PCN: ASPROD1, Group: XXXXX, ID# [id number], Questions: . THIS IS NOT INSURANCE.] clindamycin 300 mg capsule RxNorm: 297974 1 Capsule(s) PO TID 08/06/2015 08/10/2015 Inactive Claritin-D 24 Hour 10 mg-240 mg tablet,extended release RxNorm: 8078202 Tablet(s) TAKE ONE TABLET BY MOUTH DAILY 07/23/2015 10/20/2015 Inactive hydrocodone 5 mg-acetaminophen 325 mg tablet RxNorm: 420253 1 to 2 Tablet(s) PO Q6 as needed 07/23/2015 07/30/2015 Inactive [SAVINGS FOR NON-COVERED DRUGS -- BIN: 108759, PCN: ASPROD1, Group: XXXXX, ID# [id number], Questions: . THIS IS NOT INSURANCE.] Claritin-D 24 Hour 10 mg-240 mg tablet,extended release RxNorm: 5099854 TAKE ONE TABLET BY MOUTH DAILY 07/22/20152015 Inactive Valium 5 mg tablet RxNorm: 052787 Tablet(s) TAKE ONE TABLET BY MOUTH EVERY NIGHT AT BEDTIME 07/22/2015 04/17/2018 Inactive Claritin-D 24 Hour 10 mg-240 mg tablet,extended release RxNorm: 2930096 TAKE ONE TABLET BY MOUTH DAILY 07/20/20152015 Inactive Cymbalta 60 mg capsule,delayed release RxNorm: 824639 TAKE ONE CAPSULE BY MOUTH DAILY 07/20/2015 01/11/2016 Inactive cyclobenzaprine 10 mg tablet RxNorm: 811808 TAKE ONE TABLET BY MOUTH AT BEDTIME NEEDED 07/06/2015 08/04/2015 Inactive hydrocodone 5 mg-acetaminophen 325 mg tablet RxNorm: 714180 1 to 2 Tablet(s) PO Q6 as needed 06/23/2015 06/30/2015 Inactive [SAVINGS FOR NON-COVERED DRUGS -- BIN: 330413, PCN: ASPROD1, Group: XXXXX, ID# [id number], Questions: . THIS IS NOT INSURANCE.] Effexor 75 mg tablet RxNorm: 607739 1 Tablet(s) PO daily 201409/28/2015 Inactive hydrocodone 5 mg-acetaminophen 325 mg tablet RxNorm: 869419 1 to 2 Tablet(s) PO Q6 as needed 05/22/2015 05/29/2015 Inactive [SAVINGS FOR NON-COVERED DRUGS -- BIN: 928305, PCN: ASPROD1, Group: XXXXX, ID# [id number], Questions: . THIS IS NOT INSURANCE.] Valium 5 mg tablet RxNorm: 967565 Tablet(s) TAKE ONE TABLET BY MOUTH EVERY NIGHT AT BEDTIME 05/22/2015 04/17/2018 Inactive diclofenac sodium 75 mg tablet,delayed release RxNorm: 904747 1 Tablet(s) PO BID 05/04/2015 08/20/2015 Inactive Metanx (algal oil) 3 mg-35 mg-2 mg-90.314 mg capsule RxNorm: 1 Capsule(s) PO BID 05/04/2015 04/27/2016 Inactive enalapril 5 mg-hydrochlorothiazide 12.5 mg tablet RxNorm: 811619 TAKE ONE TABLET BY MOUTH DAILY 04/27/2015 08/20/2015 Inactive hydrocodone 5 mg-acetaminophen 325 mg tablet RxNorm: 583241 1 to 2 Tablet(s) PO Q6 as needed 04/27/2015 05/04/2015 Inactive [SAVINGS FOR NON-COVERED DRUGS -- BIN: 818603, PCN: ASPROD1, Group: XXXXX, ID# [id number], Questions: . THIS IS NOT INSURANCE.] hydrocodone 5 mg-acetaminophen 325 mg tablet RxNorm: 537851 1 to 2 Tablet(s) PO Q6 as needed 03/26/2015 04/02/2015 Inactive [SAVINGS FOR NON-COVERED DRUGS -- BIN: 115842, PCN: ASPROD1, Group: XXXXX, ID# [id number], Questions: . THIS IS NOT INSURANCE.] Claritin-D 24 Hour 10 mg-240 mg tablet,extended release RxNorm: 7483396 Tablet(s) TAKE ONE TABLET BY MOUTH DAILY 03/24/2015 07/19/2015 Inactive Valium 5 mg tablet RxNorm: 139648 TAKE ONE TABLET BY MOUTH EVERY NIGHT AT BEDTIME 03/05/2015 04/03/2015 Inactive Valium 5 mg tablet RxNorm: 368882 1 Tablet(s) PO daily as needed 03/05/2015 03/05/2015 Inactive [SAVINGS FOR NON-COVERED DRUGS -- BIN:625104, PCN: ASPROD1, Group : XXXXX, ID# [id number], Questions: . THIS IS NOT INSURANCE.] hydrocodone 5 mg-acetaminophen 325 mg tablet RxNorm: 842198 1 to 2 Tablet(s) PO Q6 as needed 02/18/2015 02/25/2015 Inactive [SAVINGS FOR NON-COVERED DRUGS -- BIN: 597913, PCN: ASPROD1, Group: XXXXX, ID# [id number], Questions: . THIS IS NOT INSURANCE.] enalapril 5 mg-hydrochlorothiazide 12.5 mg tablet RxNorm: 449082 1 Tablet(s) PO daily 01/30/2015 04/26/2015 Inactive hydrocodone 5 mg-acetaminophen 325 mg tablet RxNorm: 136694 1 to 2 Tablet(s) PO Q6 as needed 01/22/2015 01/29/2015 Inactive [SAVINGS FOR NON-COVERED DRUGS -- BIN: 578660, PCN: ASPROD1, Group: XXXXX, ID# [id number], Questions: . THIS IS NOT INSURANCE.] Claritin-D 24 Hour 10 mg-240 mg tablet,extended release RxNorm: 2313186 TAKE ONE TABLET BY MOUTH DAILY 01/15/20152014 Inactive Claritin-D 24 Hour 10 mg-240 mg tablet,extended release RxNorm: 9212718 Tablet(s) TAKE ONE TABLET BY MOUTH DAILY 01/15/2015 01/14/2015 Inactive cyclobenzaprine 10 mg tablet RxNorm: 726618 1 Tablet(s) PO QHS as needed 12/29/2014 01/27/2015 Inactive hydrocodone 5 mg-acetaminophen 325 mg tablet RxNorm: 356912 1 to 2 Tablet(s) PO Q6 as needed 12/23/2014 12/30/2014 Inactive [SAVINGS FOR NON-COVERED DRUGS -- BIN: 407020, PCN: ASPROD1, Group: XXXXX, ID# [id number], Questions: . THIS IS NOT INSURANCE.] Cymbalta 60 mg capsule,delayed release RxNorm: 951755 1 Capsule(s) PO daily 12/18/2014 07/15/2015 Inactive Claritin-D 24 Hour 10 mg-240 mg tablet,extended release RxNorm: 9400672 TAKE ONE TABLET BY MOUTH DAILY 12/15/20142014 Inactive Claritin-D 24 Hour 10 mg-240 mg tablet,extended release RxNorm: 1757055 TAKE ONE TABLET BY MOUTH DAILY 12/15/20142014 Inactive Claritin-D 24 Hour 10 mg-240 mg tablet,extended release RxNorm: 6137314 TAKE ONE TABLET BY MOUTH DAILY 12/15/20142014 Inactive Claritin-D 24 Hour 10 mg-240 mg tablet,extended release RxNorm: 7301077 1 Tablet(s ) PO daily 12/10/2014 12/14/2014 Inactive hydrocodone 5 mg-acetaminophen 325 mg tablet RxNorm: 752440 1 to 2 Tablet(s) PO Q6 as needed 12/08/2014 12/22/2014 Inactive [SAVINGS FOR NON-COVERED DRUGS -- BIN: 745138, PCN: ASPROD1, Group: XXXXX, ID# [id number], Questions: . THIS IS NOT INSURANCE.] hydrocodone 5 mg-acetaminophen 325 mg tablet RxNorm: 522206 1 to 2 Tablet(s) PO Q6 as needed 11/25/2014 12/07/2014 Inactive [SAVINGS FOR NON-COVERED DRUGS -- BIN: 175990, PCN: ASPROD1, Group: XXXXX, ID# [id number], Questions: . THIS IS NOT INSURANCE.] Claritin-D 24 Hour 10 mg-240 mg tablet,extended release RxNorm: 2840452 1 Tablet(s ) PO daily 11/07/2014 12/06/2014 Inactive Claritin-D 24 Hour 10 mg-240 mg tablet,extended release RxNorm: 8009670 1 Tablet(s ) PO daily 11/07/2014 11/06/2014 Inactive hydrocodone 5 mg-acetaminophen 325 mg tablet RxNorm: 543359 1 to 2 Tablet(s) PO Q6 as needed 11/03/2014 11/24/2014 Inactive [SAVINGS FOR NON-COVERED DRUGS -- BIN: 228772, PCN: ASPROD1, Group: XXXXX, ID# [id number], Questions: . THIS IS NOT INSURANCE.] Valium 5 mg tablet RxNorm: 249749 1 Tablet(s) PO daily as needed 10/23/2014 12/20/2014 Inactive [SAVINGS FOR NON-COVERED DRUGS -- BIN:585358, PCN: ASPROD1, Group : XXXXX, ID# [id number], Questions: . THIS IS NOT INSURANCE.] Cialis 5 mg tablet RxNorm: 036933 1/2 Tablet(s) PO daily No Stop Date Active [SAVINGS FOR NON-COVERED DRUGS -- BIN:493613, PCN: ASPROD1, Group: XXXXX, ID# [id number], Questions: . THIS IS NOT INSURANCE.] aspirin 81 mg tablet RxNorm: 015064 1 Tablet(s) PO daily No Start Date Active Effexor 75 mg tablet RxNorm: 664585 1 Tablet(s) PO daily No Start Date 05/31/2015 Inactive Valium 5 mg tablet RxNorm: 015007 1 Tablet(s) PO daily as needed No Start Date 10/22/2014 Inactive simvastatin 40 mg tablet RxNorm: 338657 1 Tablet(s) PO QHS No Start Date 10/04/2015 Inactive enalapril 5 mg-hydrochlorothiazide 12.5 mg tablet RxNorm: 565580 oral No Start Date 01/29/2015 Inactive cyclobenzaprine 10 mg tablet RxNorm: 745352 1 Tablet(s) PO as needed No Start Date 12/28/2014 Inactive Cymbalta 60 mg capsule,delayed release RxNorm: 576622 1 Capsule(s) PO daily No Start Date 12/17/2014 Inactive hydrocodone 5 mg-acetaminophen 325 mg tablet RxNorm: 266280 1 to 2 Tablet(s) PO Q6 as needed No Start Date 11/02/2014 Inactive diclofenac sodium 75 mg tablet,delayed release RxNorm: 832914 1 Tablet(s) PO BID No Start Date 2015 Inactive Cialis 5 mg tablet RxNorm: 567757 1 Tablet(s) PO daily No Start Date 10/12/2014 Inactive Medication Administered Medication Codes Instructions Start Date Status ceftriaxone 500 mg solution for injection RxNorm: 8549573 1Gram 03/16/2017 No longer Active Immunizations No [...] Antibody With Reflex For Hcv Antibody Verificat 676573 HEPATITIS C ANTIBODY NEGATIVE 07/19/2016 Lipid Ord30 CHOL 180 mg/dL 07/18/2016 Lipid Ord30 HDL 56.0 mg/dl 07/18/2016 Lipid Ord30 TRIG 153 mg/dL 07/18/2016 Lipid Ord30 LDL 93 mg/dL 07/18/2016 Lipid Ord30 C/HDL 3.2 Ratio 07/18/2016 Comp Metabolic Xez544 NA 136 mEq/L 07/18/2016 Comp Metabolic Gto607 K 4.3 mEq/L 07/18/2016 Comp Metabolic Cbf881 CL 100 mEq/L 07/18/2016 Comp Metabolic Ssm265 CO2 30.0 mEq/L 07/18/2016 Comp Metabolic Izg059 ANION GAP 10 07/18/2016 Comp Metabolic Uol735 GLUCOSE 104 mg/dL 07/18/2016 Comp Metabolic Zkz449 Creat 1.0 mg/dL 07/18/2016 Comp Metabolic Knh850 eGFR 81 ml/min/1.73m2 07/18/2016 Comp Metabolic Aew231 BUN 21 mg/dL 07/18/2016 Comp Metabolic Etr698 B/C Ratio 20.8 Ratio 07/18/2016 Comp Metabolic Yuu841 CALCIUM 9.5 mg/dL 07/18/2016 Comp Metabolic Sox062 ALK PHOS 45 U/L 07/18/2016 Comp Metabolic Lwr892 AST(SGOT) 26 U/L 07/18/2016 Comp Metabolic Ofl839 ALT(SGPT) 52 U/L 07/18/2016 Comp Metabolic Jup746 BILI T 0.8 mg/dL 07/18/2016 Comp Metabolic Hsw505 ALBUMIN 4.7 g/dL 07/18/2016 Comp Metabolic Mpx941 TPRO 6.9 g/dL 07/18/2016 Comp Metabolic Imw467 GLOB 2.2 g/dL 07/18/2016 Comp Metabolic Epa945 A/G Ratio 2.2 Ratio 07/18/2016 Comp Metabolic Rch363 Osmo 275 mOsmo 07/18/2016 Cbc With Differential [...] 94.0 fl 07/18/2016 Cbc With Differential Ord2 [place]% 11.2 % 07/18/2016 Cbc With Differential Ord2 MCH 31.5 pg 07/18/2016 Cbc With Differential Ord2 MCHC 33.5 pg 07/18/2016 Cbc With Differential Ord2 Eos% 3.2 % 07/18/2016 Cbc With Differential Ord2 Baso% 0.2 % 07/18/2016 Cbc With Differential Ord2 PLT 191 K/ul 07/18/2016 Cbc With Differential Ord2 RDW 14.4 % 07/18/2016 Cbc With Differential Ord2 Neut ABS# 3.29 K/ul 07/18/2016 Cbc With Differential Ord2 Lymph ABS# 0.69 K/ul 07/18/2016 Cbc With Differential Ord2 [place] ABS# 0.5 K/ul 07/18/2016 Cbc With Differential Ord2 Eos ABS# 0.2 K/ul 07/18/2016 Cbc With Differential Ord2 Baso ABS# 0.0 K/ul 07/18/2016 Tsh Ord6 hTSH II 1.99 uIU/mL 07/18/2016 Total Psa Ord10 PSA 0.75 ng/mL 07/18/2016 %Hba1C Wld520 % HbA1c 09345-1 5.8 % 07/18/2016 %Hba1C Eav372 Gluc Ave 120 mg/dL 07/18/2016 Review of [...] Effective Dates Notes Full Exam - General 1995 Constitutional general appearance Overall: well developed 10/20/2017 [...] normal 10/20/2017 None Full Exam - General 1995 Ears/Nose/Throat lips/teeth/gingiva Overall: benign lips 10/20/2017 None [...] Code : 8480-6 BMI: 32.4 Code : 41066-3 Heart Rate 1 : 80 bpm Height: 5'10" SpO2: 98% Weight: 226 lbs 03/20/2017 Blood Pressure 1: 134/72 Code : 8480-6 Heart Rate 1: 87 bpm Height: 5'10" SpO2: 97% 03/16/2017 Blood Pressure 1: 150/84 Code : 8480-6 BMI: 32.4 Code : 95625-2 Heart Rate 1 : 98 bpm Height: 5'10" SpO2: 97% Weight: 226 lbs 03/10/2017 Blood Pressure 1: 140/72 Code : 8480-6 BMI: 32.4 Code : 20960-1 Heart Rate 1 : 81 bpm Height: 5'10" SpO2: 97% Weight: 226 lbs 11/16/2016 Blood Pressure 1: 142/80 Code : 8480-6 BMI: 32.1 Code : 46759-1 Heart Rate 1 : 95 bpm Height: 5'10" SpO2: 98% Weight: 224 lbs 07/15/2016 Blood Pressure 1: 130/78 Code : 8480-6 BMI: 32.0 Code : 97754-0 Heart Rate 1 : 85 bpm Height: 5'10" SpO2: 95% Weight: 223 lbs 03/08/2016 Blood Pressure 1: 138/84 Code : 8480-6 BMI: 31.6 Code : 48771-7 Heart Rate 1 : 86 bpm Height: 5'10" SpO2: 98% Weight: 220 lbs 11/26/2015 Blood Pressure 1: 132/82 Code : 8480-6 BMI: 31.6 Code : 71885-0 Height: 5'10 " Weight: 220 lbs 08/06/2015 Blood Pressure 1: 138/74 Code : 8480-6 BMI: 31.0 Code : 88010-0 Heart Rate 1 : 87 bpm Height: 5'10" SpO2: 95% Weight: 216 lbs 05/04/2015 Blood Pressure 1: 128/80 Code : 8480-6 BMI: 33.6 Code : 49241-6 Heart Rate 1 : 94 bpm Height: 5'10" SpO2: 97% Weight: 234 lbs 11/06/2014 Blood Pressure 1: 132/92 Code : 8480-6 BMI: 31.1 Code : 12505-7 Heart Rate 1 : 88 bpm Height: [...] data Encounters Encounter Performer Location Codes Date [id number] EST. PATIENT, LEVEL IV Diagnosis: Bilateral primary osteoarthritis of knee[ICD10: M17.0] Julianna Mcfarlane MD, [facility] CPT-4: 18893 10/20/2017 [id number] EST. PATIENT, LEVEL IV Diagnosis: Periapical abscess without sinus[ICD10: K04.7] Diagnosis: Cellulitis and abscess of mouth[ICD10: K12.2] Julianna Mcfarlane MD, [facility] CPT-4: 93994 03/20/2017 ([id number]) 93561 EST. PATIENT, LEVEL III Diagnosis: Periapical abscess without sinus[ICD10: K04.7] Diagnosis: Cellulitis and abscess of mouth[ICD10: K12.2] Mayte Mcfarlane MD, [facility] CPT-4: 72064 03/16/2017 ([id number]) 03049 EST. PATIENT, LEVEL III Diagnosis: Periapical abscess without sinus[ICD10: K04.7] Niya Mcfarlane MD, [facility] CPT-4: 04491 03/10/2017 ([id number]) 11147 EST. PATIENT, LEVEL IV Diagnosis: Essential (primary) hypertension[ICD10: I10] Diagnosis: Low back pain[ICD10: M54.5] Mayte Mcfarlane MD, [facility] CPT- 4: 84742 11/16/2016 ([id number]) 85155 EST. PATIENT, LEVEL IV Diagnosis: Mixed hyperlipidemia[ICD10: E78.2] Diagnosis: Essential (primary) hypertension[ICD10: I10] Diagnosis: Impaired fasting glucose[ICD10: R73.01] Diagnosis: Encounter for screening for malignant neoplasm of prostate[ICD10: Z12.5] Diagnosis: Encounter for screening for other viral diseases[ICD10: Z11.59] Diagnosis: Drug induced constipation[ICD10: K59.03] Niya Mcfarlane MD, [facility] CPT-4: 25295 07/15/2016 ([id number]) 74218 EST. PATIENT, LEVEL III Diagnosis: Bilateral primary osteoarthritis of knee[ICD10: M17.0] Niya Mcfarlane MD, [facility] CPT-4: 41350 03/08/2016 ([id number]) 88091 EST. PATIENT, LEVEL III Diagnosis: Bilateral primary osteoarthritis of knee[ICD10: M17.0] Niya Mcfarlane MD, [facility] CPT-4: 05337 11/26/2015 [id number] EST. PATIENT, LEVEL IV Diagnosis: Cervicalgia[ICD10: M54.2] Diagnosis: Other specified polyneuropathies[ICD10: G62.89] Diagnosis: Dental caries, unspecified[ICD10: K02.9] Diagnosis: Major depressive disorder, single episode, unspecified[ICD10: F32.9] Niya Mcfarlane MD, [facility] CPT-4: 06143 08/06/2015 ([id number]) 23697 EST. PATIENT, LEVEL IV Diagnosis: Mixed hyperlipidemia[ICD10: E78.2] Diagnosis: Idiopathic gout, unspecified ankle and foot[ICD10: M10.079] Diagnosis: Other specified polyneuropathies[ICD10: G62.89] Diagnosis: Morbid (severe) obesity due to excess calories[ICD10: E66.01] Mayte Mcfarlane MD, [facility] CPT-4: 02036 05/04/2015 ([id number]) OFFICE VISIT, NEW - LEVEL 4 Diagnosis: GOUT[ICD9: 274.9] Diagnosis: Sinusitis, acute[ICD9: 461.9] Diagnosis: HYPERLIPIDEMIA[ICD9: 272.4] Mayte Mcfarlane MD, [facility] CPT- 4: 12982 11/06/2014 Plan of Care Planned Activity Notes Codes Status Date Visit Plan: OA knees - pt has chronic pain - has been maintained on current medications, has not sought out other medications, only uses PRN pain medications as directed, and understands the consequences of over- medication. 10/20/2017 Appointment: Julianna Stanford WPtel: [address] [place], [place] [phone] (30 min) Complex 10/20/2017 Patient Education: Patient Medication Summary Completed 10/20/2017 Appointment: Julianna Stanford WPtel: [address] [place], [place] [phone] (15 min) Moderate 10/19/2017 Visit Plan: Cellulitis/Abscess - continue with current treatment course - restart keflex as patient had improvement of symptoms on the rocephin. continue with clindamycin and increase probiotic to tid dosing. Keep follow up appointment with Dr. Hendrix on 03/28. Notify clinic with any changes or concerns, or with any questions. 03/20/2017 Appointment: Julianna Stanford WPtel: [phone] [phone] (30 min) Complex 03/20/2017 Patient Education: Patient [...] tid dosing. 03/16/2017 Appointment: Mayte Mcfarlane WPtel: [facility] (15 min) Moderate 03/16/2017 Patient Education: Patient Medication Summary Completed 03/16/2017 Visit Plan: Abscessed tooth-discussed with Dr Mcfarlane- plan for IV abx x 3 days-will start with clindamycin and rocephin today and continue rocephin Monday and Monday-will increase dose of oral clindamycin - rx sent to patient's pharmacy and instructed on use. Patient verbalized understanding of plan. 03/10/2017 Appointment: Niya Bryant WPtel: [phone] (15 min) Moderate 03/10/2017 Patient Education: Patient [...] worsen. 11/16/2016 Appointment: Mayte Mcfarlane WPtel: [phone] [phone] (15 min) Moderate 11/16/2016 Patient Education: [...] hgb a1c 07/15/2016 Appointment: Niya Bryant WPtel: [phone] (15 min) Moderate 07/15/2016 Patient [...] over- medication. 03/08/2016 Appointment: Niya Bryant WPtel: [address] [place], [place] [phone] (30 min) Complex 03/08/2016 Patient Education: Patient [...] plan. 11/26/2015 Appointment: Niya Bryant WPtel: [phone] [phone] [place] (30 min) Complex 11/26/2015 Patient Education: Patient [...] medications. 11/06/2014 Appointment: [phone] [place] [facility] New Patient 11/06/2014 Patient Education: [...]
--- OUTSIDE RECORDS SUMMARY | 2018-07-11 13:05 | XMS REPORT | CCD ---
Author Author [facility] Organization [facility] Address [address] [place] [address] Phone Care Team Providers Care Flight Deck Officer Name Role Phone PP Unavailable CCM Unavailable Summary Purpose Interface Exchange Insurance Providers Payer name Policy type / Coverage type Covered democrat ID Effective Begin Date Effective End Date Blue Cross Blue [facility] Blue Cross/Blue Shield [id number] Unknown Unknown Family history Father Diagnosis Age At Onset Cancer Unknown Stroke Unknown Heart Attack Unknown Hyperlipidemia Unknown Diabetes mellitus Type 2 Unknown Arthritis Unknown Heart disease Unknown Mother Diagnosis Age At Onset Arthritis Unknown Hypertension Unknown Breast cancer Unknown Sister Diagnosis Age At Onset Multiple sclerosis Unknown Social History Social History Element Codes Description Effective Dates Employment Unknown 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] Start Date Stop Date Status Fill Instructions diclofenac sodium 75 mg tablet,delayed release RxNorm: 497223 TAKE ONE TABLET BY MOUTH TWICE A DAY 04/23/2018 09/19/2018 Active Valium 5 mg tablet RxNorm: 741116 Tablet(s) TAKE ONE TABLET BY MOUTH EVERY NIGHT AT BEDTIME 04/18/2018 05/17/2018 Active hydrocodone 10 mg-acetaminophen 325 mg tablet RxNorm: 837819 1 Tablet(s) PO QID as needed tooth abscess pain or back pain 04/16/2018 05/15/2018 Active hydrocodone 10 mg-acetaminophen 325 mg tablet RxNorm: 855985 1 Tablet(s) PO QID as needed tooth abscess pain or back pain 03/15/2018 04/13/2018 Inactive Effexor 75 mg tablet RxNorm: 088594 TAKE ONE TABLET BY MOUTH DAILY 03/14/2018 08/10/2018 Active hydrocodone 10 mg-acetaminophen 325 mg tablet RxNorm: 707186 1 Tablet(s) PO QID as needed tooth abscess pain or back pain 02/16/2018 03/14/2018 Inactive simvastatin 40 mg tablet RxNorm: 328005 TAKE ONE TABLET BY MOUTH EVERY NIGHT AT BEDTIME 02/12/2018 06/11/2018 Active Cymbalta 60 mg capsule,delayed release RxNorm: 959863 TAKE ONE CAPSULE BY MOUTH DAILY 02/12/2018 05/12/2018 Active diclofenac sodium 75 mg tablet,delayed release RxNorm: 557693 TAKE ONE TABLET BY MOUTH TWICE A DAY 01/26/2018 04/22/2018 Inactive hydrocodone 10 mg-acetaminophen 325 mg tablet RxNorm: 505118 1 Tablet(s) PO QID as needed tooth abscess pain or back pain 01/18/2018 02/15/2018 Inactive Claritin-D 24 Hour 10 mg-240 mg tablet,extended release RxNorm: 9949281 Tablet(s) TAKE ONE TABLET BY MOUTH DAILY 01/08/2018 04/07/2018 Inactive enalapril 5 mg-hydrochlorothiazide 12.5 mg tablet RxNorm: 894434 TAKE ONE TABLET BY MOUTH DAILY 12/29/2017 05/27/2018 Active hydrocodone 10 mg-acetaminophen 325 mg tablet RxNorm: 333986 1 Tablet(s) PO QID as needed tooth abscess pain or back pain 12/21/2017 01/17/2018 Inactive Cymbalta 60 mg capsule,delayed release RxNorm: 399693 TAKE ONE CAPSULE BY MOUTH DAILY 12/15/2017 02/11/2018 Inactive hydrocodone 10 mg-acetaminophen 325 mg tablet RxNorm: 158167 1 Tablet(s) PO QID as needed tooth abscess pain or back pain 11/22/2017 11/21/2017 Inactive hydrocodone 10 mg-acetaminophen 325 mg tablet RxNorm: 352465 1 Tablet(s) PO QID as needed tooth abscess pain or back pain 11/22/2017 12/20/2017 Inactive Movantik 25 mg tablet RxNorm: 9729624 1 Tablet(s) PO QAM 201712/07/2017 Inactive hydrocodone 10 mg-acetaminophen 325 mg tablet RxNorm: 117286 1 Tablet(s) PO QID as needed tooth abscess pain or back pain 10/20/2017 11/18/2017 Inactive Effexor 75 mg tablet RxNorm: 422406 TAKE ONE TABLET BY MOUTH DAILY 10/10/2017 03/08/2018 Inactive diclofenac sodium 75 mg tablet,delayed release RxNorm: 727646 TAKE ONE TABLET BY MOUTH TWICE A DAY 10/02/2017 01/25/2018 Inactive hydrocodone 10 mg-acetaminophen 325 mg tablet RxNorm: 814562 1 Tablet(s) PO QID as needed tooth abscess pain or back pain 09/27/2017 10/26/2017 Inactive simvastatin 40 mg tablet RxNorm: 908059 TAKE ONE TABLET BY MOUTH EVERY NIGHT AT BEDTIME 09/13/2017 02/09/2018 Inactive Cymbalta 60 mg capsule,delayed release RxNorm: 014669 TAKE ONE CAPSULE BY MOUTH DAILY 09/13/2017 12/11/2017 Inactive Claritin-D 24 Hour 10 mg-240 mg tablet,extended release RxNorm: 0003672 Tablet(s) TAKE ONE TABLET BY MOUTH DAILY 08/28/2017 11/25/2017 Inactive Claritin-D 24 Hour 10 mg-240 mg tablet,extended release RxNorm: 8597332 TAKE ONE TABLET BY MOUTH DAILY 08/28/20172017 Inactive hydrocodone 10 mg-acetaminophen 325 mg tablet RxNorm: 873900 1 Tablet(s) PO QID as needed tooth abscess pain or back pain 08/25/2017 09/23/2017 Inactive Valium 5 mg tablet RxNorm: 259758 Tablet(s) TAKE ONE TABLET BY MOUTH EVERY NIGHT AT BEDTIME 08/07/2017 11/02/2017 Inactive Metanx (algal oil) 3 mg-35 mg-2 mg-90.314 mg capsule RxNorm: TAKE ONE CAPSULE BY MOUTH TWO TIMES DAILY 08/02/20172017 Active hydrocodone 10 mg-acetaminophen 325 mg tablet RxNorm: 047392 1 Tablet(s) PO QID as needed tooth abscess pain or back pain 07/27/2017 08/24/2017 Inactive enalapril 5 mg-hydrochlorothiazide 12.5 mg tablet RxNorm: 431766 TAKE ONE TABLET BY MOUTH DAILY 07/03/2017 12/28/2017 Inactive hydrocodone 10 mg-acetaminophen 325 mg tablet RxNorm: 942081 1 Tablet(s) PO QID as needed tooth abscess pain or back pain 06/23/2017 07/22/2017 Inactive hydrocodone 10 mg-acetaminophen 325 mg tablet RxNorm: 799455 1 Tablet(s) PO QID as needed tooth abscess pain or back pain 05/31/2017 06/22/2017 Inactive diclofenac sodium 75 mg tablet,delayed release RxNorm: 648806 TAKE ONE TABLET BY MOUTH TWICE A DAY 05/29/2017 09/25/2017 Inactive Valium 5 mg tablet RxNorm: 357507 Tablet(s) TAKE ONE TABLET BY MOUTH EVERY NIGHT AT BEDTIME 05/16/2017 04/17/2018 Inactive Cymbalta 60 mg capsule,delayed release RxNorm: 236848 TAKE ONE CAPSULE BY MOUTH DAILY 05/15/2017 09/11/2017 Inactive hydrocodone 10 mg-acetaminophen 325 mg tablet RxNorm: 137491 1 Tablet(s) PO QID as needed tooth abscess pain or back pain 2017 05/30/2017 Inactive Claritin-D 24 Hour 10 mg-240 mg tablet,extended release RxNorm: 2026501 Tablet(s) TAKE ONE TABLET BY MOUTH DAILY 04/19/2017 07/17/2017 Inactive hydrocodone 5 mg-acetaminophen 325 mg tablet RxNorm: 336809 1-2 Tablet(s) PO Q6 as needed 04/18/2017 05/02/2017 Inactive Effexor 75 mg tablet RxNorm: 035176 TAKE ONE TABLET BY MOUTH DAILY 04/13/2017 10/09/2017 Inactive Keflex 500 mg capsule RxNorm: 326275 1 Capsule(s) PO TID 201603/26/2017 Inactive clindamycin 300 mg capsule RxNorm: 557771 1 Capsule(s) PO TID 03/20/2017 03/26/2017 Inactive ceftriaxone 500 mg solution for injection RxNorm: 0404742 1 Gram(s) Inj 03/16/2017 03/16/2017 Inactive clindamycin 300 mg capsule RxNorm: 622370 1 Capsule(s) PO TID 03/16/2017 03/19/2017 Inactive hydrocodone 5 mg-acetaminophen 325 mg tablet RxNorm: 796190 1-2 Tablet(s) PO Q6 as needed 03/16/2017 03/16/2017 Inactive Keflex 500 mg capsule RxNorm: 719904 1 Capsule(s) PO TID 201603/19/2017 Inactive hydrocodone 10 mg-acetaminophen 325 mg tablet RxNorm: 943983 1 Tablet(s) PO QID as needed tooth abscess pain or back pain 03/16/2017 04/14/2017 Inactive simvastatin 40 mg tablet RxNorm: 086781 TAKE ONE TABLET BY MOUTH EVERY NIGHT AT BEDTIME 03/13/2017 09/08/2017 Inactive clindamycin 300 mg capsule RxNorm: 197526 1 Capsule(s) PO TID 03/10/2017 03/15/2017 Inactive hydrocodone 5 mg-acetaminophen 325 mg tablet RxNorm: 461661 1-2 Tablet(s) PO Q6 as needed 03/03/2017 03/15/2017 Inactive hydrocodone 5 mg-acetaminophen 325 mg tablet RxNorm: 411176 1 to 2 Tablet(s) PO Q6 as needed 02/15/2017 02/25/2017 Inactive hydrocodone 5 mg-acetaminophen 325 mg tablet RxNorm: 219802 1 to 2 Tablet(s) PO Q6 as needed 02/02/2017 02/12/2017 Inactive enalapril 5 mg-hydrochlorothiazide 12.5 mg tablet RxNorm: 450576 TAKE ONE TABLET BY MOUTH DAILY 01/23/2017 06/21/2017 Inactive diclofenac sodium 75 mg tablet,delayed release RxNorm: 604042 TAKE ONE TABLET BY MOUTH TWICE A DAY 01/23/2017 05/22/2017 Inactive hydrocodone 5 mg-acetaminophen 325 mg tablet RxNorm: 627721 1 to 2 Tablet(s) PO Q6 as needed 01/12/2017 01/22/2017 Inactive hydrocodone 5 mg-acetaminophen 325 mg tablet RxNorm: 618968 1 to 2 Tablet(s) PO Q6 as needed 12/29/2016 01/08/2017 Inactive hydrocodone 5 mg-acetaminophen 325 mg tablet RxNorm: 548128 1 to 2 Tablet(s) PO Q6 as needed 12/16/2016 12/26/2016 Inactive Cymbalta 60 mg capsule,delayed release RxNorm: 827007 TAKE ONE CAPSULE BY MOUTH DAILY 12/14/2016 05/12/2017 Inactive hydrocodone 5 mg-acetaminophen 325 mg tablet RxNorm: 395167 1 to 2 Tablet(s) PO Q6 as needed 11/30/2016 12/10/2016 Inactive Voltaren 1 % topical gel RxNorm: 322630 2 Gram(s) TOP QID bilateral SI joints 11/16/2016 01/14/2017 Inactive diclofenac sodium 75 mg tablet,delayed release RxNorm: 526310 TAKE ONE TABLET BY MOUTH TWICE A DAY 10/31/2016 01/22/2017 Inactive hydrocodone 5 mg-acetaminophen 325 mg tablet RxNorm: 976510 1 to 2 Tablet(s) PO Q6 as needed 10/27/2016 11/06/2016 Inactive hydrocodone 5 mg-acetaminophen 325 mg tablet RxNorm: 588466 1 to 2 Tablet(s) PO Q6 as needed 10/05/2016 10/15/2016 Inactive Effexor 75 mg tablet RxNorm: 433717 TAKE ONE TABLET BY MOUTH DAILY 10/03/2016 03/31/2017 Inactive Claritin-D 24 Hour 10 mg-240 mg tablet,extended release RxNorm: 6354664 Tablet(s) TAKE ONE TABLET BY MOUTH DAILY 09/26/2016 12/24/2016 Inactive hydrocodone 5 mg-acetaminophen 325 mg tablet RxNorm: 533441 1 to 2 Tablet(s) PO Q6 as needed 09/09/2016 09/19/2016 Inactive hydrocodone 5 mg-acetaminophen 325 mg tablet RxNorm: 294775 1 to 2 Tablet(s) PO Q6 as needed 08/19/2016 08/29/2016 Inactive hydrocodone 5 mg-acetaminophen 325 mg tablet RxNorm: 984670 1 to 2 Tablet(s) PO Q6 as needed 08/01/2016 08/11/2016 Inactive enalapril 5 mg-hydrochlorothiazide 12.5 mg tablet RxNorm: 083513 Tablet(s) TAKE ONE TABLET BY MOUTH DAILY 07/18/201601/13 Inactive Movantik 25 mg tablet RxNorm: 1625464 1 Tablet(s) PO QAM 201611/07/2017 Inactive hydrocodone 5 mg-acetaminophen 325 mg tablet RxNorm: 901156 1 to 2 Tablet(s) PO Q6 as needed 07/15/2016 07/25/2016 Inactive diclofenac sodium 75 mg tablet,delayed release RxNorm: 052836 TAKE ONE TABLET BY MOUTH TWICE A DAY 06/27/2016 10/24/2016 Inactive hydrocodone 5 mg-acetaminophen 325 mg tablet RxNorm: 105946 1 to 2 Tablet(s) PO Q6 as needed 06/16/2016 06/26/2016 Inactive Claritin-D 24 Hour 10 mg-240 mg tablet,extended release RxNorm: 2914470 Tablet(s) TAKE ONE TABLET BY MOUTH DAILY 06/10/2016 08/08/2016 Inactive Metanx (algal oil) 3 mg-35 mg-2 mg-90.314 mg capsule RxNorm: Capsule(s) TAKE ONE CAPSULE BY MOUTH TWO TIMES DAILY 06/02/2016 05/27/2017 Inactive hydrocodone 5 mg-acetaminophen 325 mg tablet RxNorm: 839965 1 to 2 Tablet(s) PO Q6 as needed 05/27/2016 06/06/2016 Inactive Valium 5 mg tablet RxNorm: 811303 Tablet(s) TAKE ONE TABLET BY MOUTH EVERY NIGHT AT BEDTIME 05/16/2016 07/14/2016 Inactive Metanx (algal oil) 3 mg-35 mg-2 mg-90.314 mg capsule RxNorm: TAKE ONE CAPSULE BY MOUTH TWO TIMES DAILY 05/11/20162015 Inactive hydrocodone 5 mg-acetaminophen 325 mg tablet RxNorm: 523138 1 to 2 Tablet(s) PO Q6 as needed 04/25/2016 05/02/2016 Inactive [SAVINGS FOR NON-COVERED DRUGS -- BIN: 406851, PCN: ASPROD1, Group: XXXXX, ID# [id number], Questions: . THIS IS NOT INSURANCE.] hydrocodone 5 mg-acetaminophen 325 mg tablet RxNorm: 364133 1 to 2 Tablet(s) PO Q6 as needed 04/01/2016 04/08/2016 Inactive [SAVINGS FOR NON-COVERED DRUGS -- BIN: 429243, PCN: ASPROD1, Group: XXXXX, ID# [id number], Questions: . THIS IS NOT INSURANCE.] diclofenac sodium 75 mg tablet,delayed release RxNorm: 686117 TAKE ONE TABLET BY MOUTH TWICE A DAY 03/21/2016 06/18/2016 Inactive enalapril 5 mg-hydrochlorothiazide 12.5 mg tablet RxNorm: 960431 TAKE ONE TABLET BY MOUTH DAILY 03/21/2016 07/17/2016 Inactive Claritin-D 24 Hour 10 mg-240 mg tablet,extended release RxNorm: 9364129 Tablet(s) TAKE ONE TABLET BY MOUTH DAILY 03/11/2016 06/08/2016 Inactive hydrocodone 5 mg-acetaminophen 325 mg tablet RxNorm: 230516 1 to 2 Tablet(s) PO Q6 as needed 03/08/2016 03/15/2016 Inactive [SAVINGS FOR NON-COVERED DRUGS -- BIN: 930315, PCN: ASPROD1, Group: XXXXX, ID# [id number], Questions: . THIS IS NOT INSURANCE.] simvastatin 40 mg tablet RxNorm: 081386 1 Tablet(s) PO QHS 10/03/2016 Inactive Effexor 75 mg tablet RxNorm: 786014 Tablet(s) TAKE ONE TABLET BY MOUTH DAILY 03/08/2016 10/02/2016 Inactive simvastatin 40 mg tablet RxNorm: 148588 TAKE ONE TABLET BY MOUTH EVERY NIGHT AT BEDTIME 02/05/2016 05/04/2016 Inactive Request already responded to by other means (e.g. phone or fax) hydrocodone 5 mg-acetaminophen 325 mg tablet RxNorm: 068455 1 to 2 Tablet(s) PO Q6 as needed 02/02/2016 02/09/2016 Inactive [SAVINGS FOR NON-COVERED DRUGS -- BIN: 555942, PCN: ASPROD1, Group: XXXXX, ID# [id number], Questions: . THIS IS NOT INSURANCE.] simvastatin 40 mg tablet RxNorm: 811610 1 Tablet(s) PO QHS 03/07/2016 Inactive Cymbalta 60 mg capsule,delayed release RxNorm: 869883 TAKE ONE CAPSULE BY MOUTH DAILY 01/14/2016 06/11/2016 Inactive Request already responded to by other means ( e.g. phone or fax) Claritin-D 24 Hour 10 mg-240 mg tablet,extended release RxNorm: 8524757 Tablet(s) TAKE ONE TABLET BY MOUTH DAILY 01/14/2016 02/12/2016 Inactive hydrocodone 5 mg-acetaminophen 325 mg tablet RxNorm: 158585 1 to 2 Tablet(s) PO Q6 as needed 01/14/2016 01/21/2016 Inactive [SAVINGS FOR NON-COVERED DRUGS -- BIN: [id number], PCN: ASPROD1, Group: XXXXX, ID# [id number], Questions: . THIS IS NOT INSURANCE.] Claritin-D 24 Hour 10 mg-240 mg tablet,extended release RxNorm: 3617631 TAKE ONE TABLET BY MOUTH DAILY 01/14/20162015 Inactive Cymbalta 60 mg capsule,delayed release RxNorm: 848404 Capsule(s) TAKE ONE CAPSULE BY MOUTH DAILY 01/12/2016 01/13/2016 Inactive Claritin-D 24 Hour 10 mg-240 mg tablet,extended release RxNorm: 1668066 TAKE ONE TABLET BY MOUTH DAILY 01/11/20162015 Inactive Claritin-D 24 Hour 10 mg-240 mg tablet,extended release RxNorm: 5937049 TAKE ONE TABLET BY MOUTH DAILY 01/11/20162015 Inactive Claritin-D 24 Hour 10 mg-240 mg tablet,extended release RxNorm: 9055814 TAKE ONE TABLET BY MOUTH DAILY 01/07/20162015 Inactive Effexor 75 mg tablet RxNorm: 807780 TAKE ONE TABLET BY MOUTH DAILY 01/01/2016 02/29/2016 Inactive diclofenac sodium 75 mg tablet,delayed release RxNorm: 195191 TAKE ONE TABLET BY MOUTH TWICE A DAY 12/23/2015 03/20/2016 Inactive enalapril 5 mg-hydrochlorothiazide 12.5 mg tablet RxNorm: 391169 TAKE ONE TABLET BY MOUTH DAILY 12/23/2015 03/20/2016 Inactive hydrocodone 5 mg-acetaminophen 325 mg tablet RxNorm: 219189 1 to 2 Tablet(s) PO Q6 as needed 12/22/2015 12/29/2015 Inactive [SAVINGS FOR NON-COVERED DRUGS -- BIN: 353051, PCN: ASPROD1, Group: XXXXX, ID# [id number], Questions: . THIS IS NOT INSURANCE.] Valium 5 mg tablet RxNorm: 092670 Tablet(s) TAKE ONE TABLET BY MOUTH EVERY NIGHT AT BEDTIME 12/01/2015 04/17/2018 Inactive hydrocodone 5 mg-acetaminophen 325 mg tablet RxNorm: 309158 1 to 2 Tablet(s) PO Q6 as needed 11/30/2015 12/07/2015 Inactive [SAVINGS FOR NON-COVERED DRUGS -- BIN: 695419, PCN: ASPROD1, Group: XXXXX, ID# [id number], Questions: . THIS IS NOT INSURANCE.] hydrocodone 5 mg-acetaminophen 325 mg tablet RxNorm: 833117 1 to 2 Tablet(s) PO Q6 as needed 11/09/2015 11/16/2015 Inactive [SAVINGS FOR NON-COVERED DRUGS -- BIN: 732037, PCN: ASPROD1, Group: XXXXX, ID# [id number], Questions: . THIS IS NOT INSURANCE.] Claritin-D 24 Hour 10 mg-240 mg tablet,extended release RxNorm: 5198084 Tablet(s) TAKE ONE TABLET BY MOUTH DAILY 11/05/2015 11/04/2015 Inactive Claritin-D 24 Hour 10 mg-240 mg tablet,extended release RxNorm: 8409404 Tablet(s) TAKE ONE TABLET BY MOUTH DAILY 11/05/2015 01/06/2016 Inactive Claritin-D 24 Hour 10 mg-240 mg tablet,extended release RxNorm: 7073302 Tablet(s) TAKE ONE TABLET BY MOUTH DAILY 10/30/2015 03/10/2016 Inactive hydrocodone 5 mg-acetaminophen 325 mg tablet RxNorm: 511105 1 to 2 Tablet(s) PO Q6 as needed 10/09/2015 10/16/2015 Inactive [SAVINGS FOR NON-COVERED DRUGS -- BIN: 525051, PCN: ASPROD1, Group: XXXXX, ID# [id number], Questions: . THIS IS NOT INSURANCE.] Effexor 75 mg tablet RxNorm: 582398 TAKE ONE TABLET BY MOUTH DAILY 10/05/2015 12/31/2015 Inactive simvastatin 40 mg tablet RxNorm: 357064 1 Tablet(s) PO QHS 01/31/2016 Inactive hydrocodone 5 mg-acetaminophen 325 mg tablet RxNorm: 141003 1 to 2 Tablet(s) PO Q6 as needed 09/15/2015 09/22/2015 Inactive [SAVINGS FOR NON-COVERED DRUGS -- BIN: 628420, PCN: ASPROD1, Group: XXXXX, ID# [id number], Questions: . THIS IS NOT INSURANCE.] Valium 5 mg tablet RxNorm: 834342 Tablet(s) TAKE ONE TABLET BY MOUTH EVERY NIGHT AT BEDTIME 09/08/2015 04/17/2018 Inactive enalapril 5 mg-hydrochlorothiazide 12.5 mg tablet RxNorm: 394305 Tablet(s) TAKE ONE TABLET BY MOUTH DAILY 08/21/201512/17 Inactive diclofenac sodium 75 mg tablet,delayed release RxNorm: 078565 1 Tablet(s) PO BID 08/21/2015 12/18/2015 Inactive hydrocodone 5 mg-acetaminophen 325 mg tablet RxNorm: 699492 1 to 2 Tablet(s) PO Q6 as needed 08/13/2015 08/20/2015 Inactive [SAVINGS FOR NON-COVERED DRUGS -- BIN: 897969, PCN: ASPROD1, Group: XXXXX, ID# [email or web address], Questions: . THIS IS NOT INSURANCE.] clindamycin 300 mg capsule RxNorm: 518523 1 Capsule(s) PO TID 08/06/2015 08/10/2015 Inactive Claritin-D 24 Hour 10 mg-240 mg tablet,extended release RxNorm: 9898741 Tablet(s) TAKE ONE TABLET BY MOUTH DAILY 07/23/2015 10/20/2015 Inactive hydrocodone 5 mg-acetaminophen 325 mg tablet RxNorm: 532338 1 to 2 Tablet(s) PO Q6 as needed 07/23/2015 07/30/2015 Inactive [SAVINGS FOR NON-COVERED DRUGS -- BIN: 921345, PCN: ASPROD1, Group: XXXXX, ID# [id number], Questions: . THIS IS NOT INSURANCE.] Claritin-D 24 Hour 10 mg-240 mg tablet,extended release RxNorm: 2600419 TAKE ONE TABLET BY MOUTH DAILY 07/22/20152015 Inactive Valium 5 mg tablet RxNorm: 111988 Tablet(s) TAKE ONE TABLET BY MOUTH EVERY NIGHT AT BEDTIME 07/22/2015 04/17/2018 Inactive Claritin-D 24 Hour 10 mg-240 mg tablet,extended release RxNorm: 5945607 TAKE ONE TABLET BY MOUTH DAILY 07/20/20152015 Inactive Cymbalta 60 mg capsule,delayed release RxNorm: 129845 TAKE ONE CAPSULE BY MOUTH DAILY 07/20/2015 01/11/2016 Inactive cyclobenzaprine 10 mg tablet RxNorm: 850504 TAKE ONE TABLET BY MOUTH AT BEDTIME NEEDED 07/06/2015 08/04/2015 Inactive hydrocodone 5 mg-acetaminophen 325 mg tablet RxNorm: 208475 1 to 2 Tablet(s) PO Q6 as needed 06/23/2015 06/30/2015 Inactive [SAVINGS FOR NON-COVERED DRUGS -- BIN: 776148, PCN: ASPROD1, Group: XXXXX, ID# [id number], Questions: . THIS IS NOT INSURANCE.] Effexor 75 mg tablet RxNorm: 586978 1 Tablet(s) PO daily 201409/28/2015 Inactive hydrocodone 5 mg-acetaminophen 325 mg tablet RxNorm: 929086 1 to 2 Tablet(s) PO Q6 as needed 05/22/2015 05/29/2015 Inactive [SAVINGS FOR NON-COVERED DRUGS -- BIN: 925432, PCN: ASPROD1, Group: XXXXX, ID# [id number], Questions: . THIS IS NOT INSURANCE.] Valium 5 mg tablet RxNorm: 933528 Tablet(s) TAKE ONE TABLET BY MOUTH EVERY NIGHT AT BEDTIME 05/22/2015 04/17/2018 Inactive diclofenac sodium 75 mg tablet,delayed release RxNorm: 999398 1 Tablet(s) PO BID 05/04/2015 08/20/2015 Inactive Metanx (algal oil) 3 mg-35 mg-2 mg-90.314 mg capsule RxNorm: 1 Capsule(s) PO BID 05/04/2015 04/27/2016 Inactive enalapril 5 mg-hydrochlorothiazide 12.5 mg tablet RxNorm: 803010 TAKE ONE TABLET BY MOUTH DAILY 04/27/2015 08/20/2015 Inactive hydrocodone 5 mg-acetaminophen 325 mg tablet RxNorm: 257626 1 to 2 Tablet(s) PO Q6 as needed 04/27/2015 05/04/2015 Inactive [SAVINGS FOR NON-COVERED DRUGS -- BIN: 410648, PCN: ASPROD1, Group: XXXXX, ID# [id number], Questions: . THIS IS NOT INSURANCE.] hydrocodone 5 mg-acetaminophen 325 mg tablet RxNorm: 587580 1 to 2 Tablet(s) PO Q6 as needed 03/26/2015 04/02/2015 Inactive [SAVINGS FOR NON-COVERED DRUGS -- BIN: 863589, PCN: ASPROD1, Group: XXXXX, ID# [id number], Questions: . THIS IS NOT INSURANCE.] Claritin-D 24 Hour 10 mg-240 mg tablet,extended release RxNorm: 3608095 Tablet(s) TAKE ONE TABLET BY MOUTH DAILY 03/24/2015 07/19/2015 Inactive Valium 5 mg tablet RxNorm: 619978 TAKE ONE TABLET BY MOUTH EVERY NIGHT AT BEDTIME 03/05/2015 04/03/2015 Inactive Valium 5 mg tablet RxNorm: 166523 1 Tablet(s) PO daily as needed 03/05/2015 03/05/2015 Inactive [SAVINGS FOR NON-COVERED DRUGS -- BIN:713505, PCN: ASPROD1, Group : XXXXX, ID# [id number], Questions: . THIS IS NOT INSURANCE.] hydrocodone 5 mg-acetaminophen 325 mg tablet RxNorm: 224495 1 to 2 Tablet(s) PO Q6 as needed 02/18/2015 02/25/2015 Inactive [SAVINGS FOR NON-COVERED DRUGS -- BIN: 108485, PCN: ASPROD1, Group: XXXXX, ID# [id number], Questions: . THIS IS NOT INSURANCE.] enalapril 5 mg-hydrochlorothiazide 12.5 mg tablet RxNorm: 304627 1 Tablet(s) PO daily 01/30/2015 04/26/2015 Inactive hydrocodone 5 mg-acetaminophen 325 mg tablet RxNorm: 292451 1 to 2 Tablet(s) PO Q6 as needed 01/22/2015 01/29/2015 Inactive [SAVINGS FOR NON-COVERED DRUGS -- BIN: 418292, PCN: ASPROD1, Group: XXXXX, ID# [id number], Questions: . THIS IS NOT INSURANCE.] Claritin-D 24 Hour 10 mg-240 mg tablet,extended release RxNorm: 7697210 TAKE ONE TABLET BY MOUTH DAILY 01/15/20152014 Inactive Claritin-D 24 Hour 10 mg-240 mg tablet,extended release RxNorm: 0923248 Tablet(s) TAKE ONE TABLET BY MOUTH DAILY 01/15/2015 01/14/2015 Inactive cyclobenzaprine 10 mg tablet RxNorm: 946843 1 Tablet(s) PO QHS as needed 12/29/2014 01/27/2015 Inactive hydrocodone 5 mg-acetaminophen 325 mg tablet RxNorm: 072325 1 to 2 Tablet(s) PO Q6 as needed 12/23/2014 12/30/2014 Inactive [SAVINGS FOR NON-COVERED DRUGS -- BIN: 109007, PCN: ASPROD1, Group: XXXXX, ID# [id number], Questions: . THIS IS NOT INSURANCE.] Cymbalta 60 mg capsule,delayed release RxNorm: 087440 1 Capsule(s) PO daily 12/18/2014 07/15/2015 Inactive Claritin-D 24 Hour 10 mg-240 mg tablet,extended release RxNorm: 6470863 TAKE ONE TABLET BY MOUTH DAILY 12/15/20142014 Inactive Claritin-D 24 Hour 10 mg-240 mg tablet,extended release RxNorm: 0303148 TAKE ONE TABLET BY MOUTH DAILY 12/15/20142014 Inactive Claritin-D 24 Hour 10 mg-240 mg tablet,extended release RxNorm: 6753098 TAKE ONE TABLET BY MOUTH DAILY 12/15/20142014 Inactive Claritin-D 24 Hour 10 mg-240 mg tablet,extended release RxNorm: 1105154 1 Tablet(s ) PO daily 12/10/2014 12/14/2014 Inactive hydrocodone 5 mg-acetaminophen 325 mg tablet RxNorm: 617181 1 to 2 Tablet(s) PO Q6 as needed 12/08/2014 12/22/2014 Inactive [SAVINGS FOR NON-COVERED DRUGS -- BIN: 733997, PCN: ASPROD1, Group: XXXXX, ID# [id number], Questions: . THIS IS NOT INSURANCE.] hydrocodone 5 mg-acetaminophen 325 mg tablet RxNorm: 381561 1 to 2 Tablet(s) PO Q6 as needed 11/25/2014 12/07/2014 Inactive [SAVINGS FOR NON-COVERED DRUGS -- BIN: 615362, PCN: ASPROD1, Group: XXXXX, ID# [id number], Questions: . THIS IS NOT INSURANCE.] Claritin-D 24 Hour 10 mg-240 mg tablet,extended release RxNorm: 4306195 1 Tablet(s ) PO daily 11/07/2014 12/06/2014 Inactive Claritin-D 24 Hour 10 mg-240 mg tablet,extended release RxNorm: 5389471 1 Tablet(s ) PO daily 11/07/2014 11/06/2014 Inactive hydrocodone 5 mg-acetaminophen 325 mg tablet RxNorm: 003781 1 to 2 Tablet(s) PO Q6 as needed 11/03/2014 11/24/2014 Inactive [SAVINGS FOR NON-COVERED DRUGS -- BIN: 006606, PCN: ASPROD1, Group: XXXXX, ID# [id number], Questions: . THIS IS NOT INSURANCE.] Valium 5 mg tablet RxNorm: 584073 1 Tablet(s) PO daily as needed 10/23/2014 12/20/2014 Inactive [SAVINGS FOR NON-COVERED DRUGS -- BIN:247837, PCN: ASPROD1, Group : XXXXX, ID# [id number], Questions: . THIS IS NOT INSURANCE.] Cialis 5 mg tablet RxNorm: 547702 1/2 Tablet(s) PO daily No Stop Date Active [SAVINGS FOR NON-COVERED DRUGS -- BIN:382435, PCN: ASPROD1, Group: XXXXX, ID# [id number], Questions: . THIS IS NOT INSURANCE.] aspirin 81 mg tablet RxNorm: 132154 1 Tablet(s) PO daily No Start Date Active Effexor 75 mg tablet RxNorm: 782524 1 Tablet(s) PO daily No Start Date 05/31/2015 Inactive Valium 5 mg tablet RxNorm: 278130 1 Tablet(s) PO daily as needed No Start Date 10/22/2014 Inactive simvastatin 40 mg tablet RxNorm: 528980 1 Tablet(s) PO QHS No Start Date 10/04/2015 Inactive enalapril 5 mg-hydrochlorothiazide 12.5 mg tablet RxNorm: 161943 oral No Start Date 01/29/2015 Inactive cyclobenzaprine 10 mg tablet RxNorm: 116616 1 Tablet(s) PO as needed No Start Date 12/28/2014 Inactive Cymbalta 60 mg capsule,delayed release RxNorm: 073636 1 Capsule(s) PO daily No Start Date 12/17/2014 Inactive hydrocodone 5 mg-acetaminophen 325 mg tablet RxNorm: 948862 1 to 2 Tablet(s) PO Q6 as needed No Start Date 11/02/2014 Inactive diclofenac sodium 75 mg tablet,delayed release RxNorm: 096514 1 Tablet(s) PO BID No Start Date 2015 Inactive Cialis 5 mg tablet RxNorm: 793250 1 Tablet(s) PO daily No Start Date 10/12/2014 Inactive Medication Administered Medication Codes Instructions Start Date Status ceftriaxone 500 mg solution for injection RxNorm: 1996533 1Gram 03/16/2017 No longer Active Immunizations No [...] Antibody With Reflex For Hcv Antibody Verificat 822262 HEPATITIS C ANTIBODY NEGATIVE 07/19/2016 Lipid Ord30 CHOL 180 mg/dL 07/18/2016 Lipid Ord30 HDL 56.0 mg/dl 07/18/2016 Lipid Ord30 TRIG 153 mg/dL 07/18/2016 Lipid Ord30 LDL 93 mg/dL 07/18/2016 Lipid Ord30 C/HDL 3.2 Ratio 07/18/2016 Comp Metabolic Jfm473 NA 136 mEq/L 07/18/2016 Comp Metabolic Igt142 K 4.3 mEq/L 07/18/2016 Comp Metabolic Uvz125 CL 100 mEq/L 07/18/2016 Comp Metabolic Npu968 CO2 30.0 mEq/L 07/18/2016 Comp Metabolic Ein498 ANION GAP 10 07/18/2016 Comp Metabolic Htd971 GLUCOSE 104 mg/dL 07/18/2016 Comp Metabolic Cbg332 Creat 1.0 mg/dL 07/18/2016 Comp Metabolic Ysy586 eGFR 81 ml/min/1.73m2 07/18/2016 Comp Metabolic Dtn896 BUN 21 mg/dL 07/18/2016 Comp Metabolic Eqp777 B/C Ratio 20.8 Ratio 07/18/2016 Comp Metabolic Sqq641 CALCIUM 9.5 mg/dL 07/18/2016 Comp Metabolic Znq723 ALK PHOS 45 U/L 07/18/2016 Comp Metabolic Bbq355 AST(SGOT) 26 U/L 07/18/2016 Comp Metabolic Rhw808 ALT(SGPT) 52 U/L 07/18/2016 Comp Metabolic Scr461 BILI T 0.8 mg/dL 07/18/2016 Comp Metabolic Ggy625 ALBUMIN 4.7 g/dL 07/18/2016 Comp Metabolic Yig957 TPRO 6.9 g/dL 07/18/2016 Comp Metabolic Qmd434 GLOB 2.2 g/dL 07/18/2016 Comp Metabolic Ifm242 A/G Ratio 2.2 Ratio 07/18/2016 Comp Metabolic Vgp976 Osmo 275 mOsmo 07/18/2016 Cbc With Differential [...] 94.0 fl 07/18/2016 Cbc With Differential Ord2 [place]% 11.2 % 07/18/2016 Cbc With Differential Ord2 [...] 0.69 K/ul 07/18/2016 Cbc With Differential Ord2 [place] ABS# 0.5 K/ul 07/18/2016 Cbc With Differential Ord2 Eos ABS# 0.2 K/ul 07/18/2016 Cbc With Differential Ord2 Baso ABS# 0.0 K/ul 07/18/2016 Tsh Ord6 hTSH II 1.99 uIU/mL 07/18/2016 Total Psa Ord10 PSA 0.75 ng/mL 07/18/2016 %Hba1C Six515 % HbA1c 24507-6 5.8 % 07/18/2016 %Hba1C Ppt602 Gluc Ave 120 mg/dL 07/18/2016 Review of [...] Code : 8480-6 BMI: 32.4 Code : 58571-1 Heart Rate 1 : 80 bpm Height: 5'10" SpO2: 98% Weight: 226 lbs 03/20/2017 Blood Pressure 1: 134/72 Code : 8480-6 Heart Rate 1: 87 bpm Height: 5'10" SpO2: 97% 03/16/2017 Blood Pressure 1: 150/84 Code : 8480-6 BMI: 32.4 Code : 27195-3 Heart Rate 1 : 98 bpm Height: 5'10" SpO2: 97% Weight: 226 lbs 03/10/2017 Blood Pressure 1: 140/72 Code : 8480-6 BMI: 32.4 Code : 74531-8 Heart Rate 1 : 81 bpm Height: 5'10" SpO2: 97% Weight: 226 lbs 11/16/2016 Blood Pressure 1: 142/80 Code : 8480-6 BMI: 32.1 Code : 26445-1 Heart Rate 1 : 95 bpm Height: 5'10" SpO2: 98% Weight: 224 lbs 07/15/2016 Blood Pressure 1: 130/78 Code : 8480-6 BMI: 32.0 Code : 76825-4 Heart Rate 1 : 85 bpm Height: 5'10" SpO2: 95% Weight: 223 lbs 03/08/2016 Blood Pressure 1: 138/84 Code : 8480-6 BMI: 31.6 Code : 57433-8 Heart Rate 1 : 86 bpm Height: 5'10" SpO2: 98% Weight: 220 lbs 11/26/2015 Blood Pressure 1: 132/82 Code : 8480-6 BMI: 31.6 Code : 29687-2 Height: 5'10 " Weight: 220 lbs 08/06/2015 Blood Pressure 1: 138/74 Code : 8480-6 BMI: 31.0 Code : 50301-3 Heart Rate 1 : 87 bpm Height: 5'10" SpO2: 95% Weight: 216 lbs 05/04/2015 Blood Pressure 1: 128/80 Code : 8480-6 BMI: 33.6 Code : 97503-6 Heart Rate 1 : 94 bpm Height: 5'10" SpO2: 97% Weight: 234 lbs 11/06/2014 Blood Pressure 1: 132/92 Code : 8480-6 BMI: 31.1 Code : 77958-9 Heart Rate 1 : 88 bpm Height: [...] Performer Location Codes Date EST. PATIENT, LEVEL IV Diagnosis: Bilateral primary osteoarthritis of knee[ICD10: M17.0] [facility] CPT-4: 24458 10/20/2017 [id number] EST. PATIENT, LEVEL IV Diagnosis: Periapical abscess without sinus[ICD10: K04.7] Diagnosis: Cellulitis and abscess of mouth[ICD10: K12.2] Julianna Mcfarlane MD, [facility] CPT-4: 78234 03/20/2017 ([id number]) 20304 EST. PATIENT, LEVEL III Diagnosis: Periapical abscess without sinus[ICD10: K04.7] Diagnosis: Cellulitis and abscess of mouth[ICD10: K12.2] Mayte Mcfarlane MD, [facility] CPT-4: 82626 03/16/2017 ([id number]) 75067 EST. PATIENT, LEVEL III Diagnosis: Periapical abscess without sinus[ICD10: K04.7] Niya Mcfarlane MD, [facility] CPT-4: 80070 03/10/2017 ([id number]) 87961 EST. PATIENT, LEVEL IV Diagnosis: Essential (primary) hypertension[ICD10: I10] Diagnosis: Low back pain[ICD10: M54.5] Mayte Mcfarlane MD, [facility] CPT- 4: 66407 11/16/2016 ([id number]) 61126 EST. PATIENT, LEVEL IV Diagnosis: Mixed hyperlipidemia[ICD10: E78.2] Diagnosis: Essential (primary) hypertension[ICD10: I10] Diagnosis: Impaired fasting glucose[ICD10: R73.01] Diagnosis: Encounter for screening for malignant neoplasm of prostate[ICD10: Z12.5] Diagnosis: Encounter for screening for other viral diseases[ICD10: Z11.59] Diagnosis: Drug induced constipation[ICD10: K59.03] Niya Mcfarlane MD, [facility] CPT-4: 03353 07/15/2016 ([id number]) 27124 EST. PATIENT, LEVEL III Diagnosis: Bilateral primary osteoarthritis of knee[ICD10: M17.0] Niya Mcfarlane MD, [facility] CPT-4: 14464 03/08/2016 ([id number]) 60097 EST. PATIENT, LEVEL III Diagnosis: Bilateral primary osteoarthritis of knee[ICD10: M17.0] Niya Mcfarlane MD, [facility] CPT-4: 79217 11/26/2015 78044 EST. PATIENT, LEVEL IV Diagnosis: Cervicalgia[ICD10: M54.2] Diagnosis: Other specified polyneuropathies[ICD10: G62.89] Diagnosis: Dental caries, unspecified[ICD10: K02.9] Diagnosis: Major depressive disorder, single episode, unspecified[ICD10: F32.9] Niya Mcfarlane MD, [facility] CPT-4: 45811 08/06/2015 ([id number]) 84604 EST. PATIENT, LEVEL IV Diagnosis: Mixed hyperlipidemia[ICD10: E78.2] Diagnosis: Idiopathic gout, unspecified ankle and foot[ICD10: M10.079] Diagnosis: Other specified polyneuropathies[ICD10: G62.89] Diagnosis: Morbid (severe) obesity due to excess calories[ICD10: E66.01] Mayte Mcfarlane MD, [facility] CPT-4: 57555 05/04/2015 ([id number]) OFFICE VISIT, NEW - LEVEL 4 Diagnosis: GOUT[ICD9: 274.9] Diagnosis: Sinusitis, acute[ICD9: 461.9] Diagnosis: HYPERLIPIDEMIA[ICD9: 272.4] Mayte Mcfarlane MD, [facility] CPT- 4: 81929 11/06/2014 Plan of Care Planned Activity Notes Codes Status Date Visit Plan: OA knees - pt has chronic pain - has been maintained on current medications, has not sought out other medications, only uses PRN pain medications as directed, and understands the consequences of over- medication. 10/20/2017 Appointment: Julianna Stanford WPtel: [address] [place], [place] [phone] (30 min) Complex 10/20/2017 Patient Education: Patient Medication Summary Completed 10/20/2017 Appointment: Julianna Stanford WPtel: [address] [place], [place] [phone] (15 min) Moderate 10/19/2017 Visit Plan: Cellulitis/Abscess - continue with current treatment course - restart keflex as patient had improvement of symptoms on the rocephin. continue with clindamycin and increase probiotic to tid dosing. Keep follow up appointment with Dr. Hendrix on 03/28. Notify clinic with any changes or concerns, or with any questions. 03/20/2017 Appointment: Julianna Stanford WPtel: [address] [place], [place] [phone] (30 min) Complex 03/20/2017 Patient Education: Patient [...] dosing. 03/16/2017 Appointment: Mayte Mcfarlane WPtel: [facility]4 [facility] (15 min) Moderate 03/16/2017 Patient Education: [...] plan. 03/10/2017 Appointment: Niya Bryant WPtel: [facility]9 [phone] (15 min) Moderate 03/10/2017 Patient [...] they worsen. 11/16/2016 Appointment: Mayte Mcfarlane WPtel: [facility]9 [facility] (15 min) Moderate 11/16/2016 Patient Education: [...] a1c 07/15/2016 Appointment: Niya Bryant WPtel: [facility]5 [phone] (15 min) Moderate 07/15/2016 Patient Education: Patient Medication Summary Completed 07/15/2016 Patient Education: Obesity Completed 07/15/2016 Patient Education: Hypertension Completed 07/15/2016 Visit Plan: OA knees - pt has chronic pain - has been maintained on current medications, has not sought out other medications, only uses PRN pain medications as directed, and understands the consequences of over- medication. 03/08/2016 Appointment: Niya Bryant WPtel: [facility]5 [phone] (30 min) Complex 03/08/2016 Patient Education: Patient [...] of plan. 11/26/2015 Appointment: Niya Bryant WPtel: [phone] (30 min) Complex 11/26/2015 Patient Education: Patient [...] to medications. 11/06/2014 Appointment: Mayte Mcfarlane WPtel[facility] [place] [facility] New Patient 11/06/2014 Patient Education: [...]
--- OUTSIDE RECORDS SUMMARY | 2018-07-11 13:07 | XMS REPORT | CCD ---
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 Role Phone PP Unavailable CCM Unavailable Summary Purpose Interface Exchange Insurance Providers Payer name Policy type / Coverage type Covered alliance party ID Effective Begin Date Effective End Date Blue Cross Blue [facility] Blue Cross/Blue Shield [id number] Unknown Unknown Family history Father Diagnosis Age At Onset Cancer Unknown Stroke Unknown Heart Attack Unknown Hyperlipidemia Unknown Diabetes mellitus Type 2 Unknown Arthritis Unknown Heart disease Unknown Mother Diagnosis Age At Onset Arthritis Unknown Hypertension Unknown Breast cancer Unknown Sister Diagnosis Age At Onset Multiple sclerosis Unknown Social History Social History Element Codes Description Effective Dates Employment Unknown 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 Number of children Unknown 3 one daughter lives locally, other children live in [facility] 05/04/2015 Marital status Unknown Danielle 11/06/[address]: 387048911 Has never smoked or chewed tobacco 11/06/2014 Alcohol history Unknown occasionally drinks alcohol 11/06/2014 Allergies, Adverse Reactions, Alerts Substance Reaction Codes Entered Date Inactivated Date Status * NO KNOWN FOOD ALLERGIES Unknown 11/06/2014 No Inactive Date Active amoxicillin RxNorm: 723 11/06/2014 No Inactive Date Active AUGMENTIN RxNorm: 975287 11/06/2014 No Inactive Date Active Past Medical [...] Start Date Stop Date Status Fill Instructions Valium 5 mg tablet RxNorm: 299575 Tablet(s) TAKE ONE TABLET BY MOUTH EVERY NIGHT AT BEDTIME 04/18/2018 05/17/2018 Active hydrocodone 10 mg-acetaminophen 325 mg tablet RxNorm: 378767 1 Tablet(s) PO QID as needed tooth abscess pain or back pain 04/16/2018 05/15/2018 Active hydrocodone 10 mg-acetaminophen 325 mg tablet RxNorm: 327458 1 Tablet(s) PO QID as needed tooth abscess pain or back pain 03/15/2018 04/13/2018 Inactive Effexor 75 mg tablet RxNorm: 298131 TAKE ONE TABLET BY MOUTH DAILY 03/14/2018 08/10/2018 Active hydrocodone 10 mg-acetaminophen 325 mg tablet RxNorm: 922693 1 Tablet(s) PO QID as needed tooth abscess pain or back pain 02/16/2018 03/14/2018 Inactive simvastatin 40 mg tablet RxNorm: 129817 TAKE ONE TABLET BY MOUTH EVERY NIGHT AT BEDTIME 02/12/2018 06/11/2018 Active Cymbalta 60 mg capsule,delayed release RxNorm: 230486 TAKE ONE CAPSULE BY MOUTH DAILY 02/12/2018 05/12/2018 Active diclofenac sodium 75 mg tablet,delayed release RxNorm: 963502 TAKE ONE TABLET BY MOUTH TWICE A DAY 01/26/2018 04/25/2018 Active hydrocodone 10 mg-acetaminophen 325 mg tablet RxNorm: 538672 1 Tablet(s) PO QID as needed tooth abscess pain or back pain 01/18/2018 02/15/2018 Inactive Claritin-D 24 Hour 10 mg-240 mg tablet,extended release RxNorm: 1894371 Tablet(s) TAKE ONE TABLET BY MOUTH DAILY 01/08/2018 04/07/2018 Inactive enalapril 5 mg-hydrochlorothiazide 12.5 mg tablet RxNorm: 343527 TAKE ONE TABLET BY MOUTH DAILY 12/29/2017 05/27/2018 Active hydrocodone 10 mg-acetaminophen 325 mg tablet RxNorm: 538621 1 Tablet(s) PO QID as needed tooth abscess pain or back pain 12/21/2017 01/17/2018 Inactive Cymbalta 60 mg capsule,delayed release RxNorm: 265638 TAKE ONE CAPSULE BY MOUTH DAILY 12/15/2017 02/11/2018 Inactive hydrocodone 10 mg-acetaminophen 325 mg tablet RxNorm: 950540 1 Tablet(s) PO QID as needed tooth abscess pain or back pain 11/22/2017 11/21/2017 Inactive hydrocodone 10 mg-acetaminophen 325 mg tablet RxNorm: 870136 1 Tablet(s) PO QID as needed tooth abscess pain or back pain 11/22/2017 12/20/2017 Inactive Movantik 25 mg tablet RxNorm: 6906668 1 Tablet(s) PO QAM 201712/07/2017 Inactive hydrocodone 10 mg-acetaminophen 325 mg tablet RxNorm: 026992 1 Tablet(s) PO QID as needed tooth abscess pain or back pain 10/20/2017 11/18/2017 Inactive Effexor 75 mg tablet RxNorm: 012167 TAKE ONE TABLET BY MOUTH DAILY 10/10/2017 03/08/2018 Inactive diclofenac sodium 75 mg tablet,delayed release RxNorm: 380126 TAKE ONE TABLET BY MOUTH TWICE A DAY 10/02/2017 01/25/2018 Inactive hydrocodone 10 mg-acetaminophen 325 mg tablet RxNorm: 085066 1 Tablet(s) PO QID as needed tooth abscess pain or back pain 09/27/2017 10/26/2017 Inactive simvastatin 40 mg tablet RxNorm: 207423 TAKE ONE TABLET BY MOUTH EVERY NIGHT AT BEDTIME 09/13/2017 02/09/2018 Inactive Cymbalta 60 mg capsule,delayed release RxNorm: 639775 TAKE ONE CAPSULE BY MOUTH DAILY 09/13/2017 12/11/2017 Inactive Claritin-D 24 Hour 10 mg-240 mg tablet,extended release RxNorm: 6006403 Tablet(s) TAKE ONE TABLET BY MOUTH DAILY 08/28/2017 11/25/2017 Inactive Claritin-D 24 Hour 10 mg-240 mg tablet,extended release RxNorm: 4852302 TAKE ONE TABLET BY MOUTH DAILY 08/28/20172017 Inactive hydrocodone 10 mg-acetaminophen 325 mg tablet RxNorm: 552835 1 Tablet(s) PO QID as needed tooth abscess pain or back pain 08/25/2017 09/23/2017 Inactive Valium 5 mg tablet RxNorm: 772934 Tablet(s) TAKE ONE TABLET BY MOUTH EVERY NIGHT AT BEDTIME 08/07/2017 11/03/2017 Inactive Metanx (algal oil) 3 mg-35 mg-2 mg-90.314 mg capsule RxNorm: TAKE ONE CAPSULE BY MOUTH TWO TIMES DAILY 08/02/20172017 Active hydrocodone 10 mg-acetaminophen 325 mg tablet RxNorm: 801497 1 Tablet(s) PO QID as needed tooth abscess pain or back pain 07/27/2017 08/24/2017 Inactive enalapril 5 mg-hydrochlorothiazide 12.5 mg tablet RxNorm: 905909 TAKE ONE TABLET BY MOUTH DAILY 07/03/2017 12/28/2017 Inactive hydrocodone 10 mg-acetaminophen 325 mg tablet RxNorm: 327467 1 Tablet(s) PO QID as needed tooth abscess pain or back pain 06/23/2017 07/22/2017 Inactive hydrocodone 10 mg-acetaminophen 325 mg tablet RxNorm: 701085 1 Tablet(s) PO QID as needed tooth abscess pain or back pain 05/31/2017 06/22/2017 Inactive diclofenac sodium 75 mg tablet,delayed release RxNorm: 842186 TAKE ONE TABLET BY MOUTH TWICE A DAY 05/29/2017 09/25/2017 Inactive Valium 5 mg tablet RxNorm: 680196 Tablet(s) TAKE ONE TABLET BY MOUTH EVERY NIGHT AT BEDTIME 05/16/2017 04/17/2018 Inactive Cymbalta 60 mg capsule,delayed release RxNorm: 288272 TAKE ONE CAPSULE BY MOUTH DAILY 05/15/2017 09/11/2017 Inactive hydrocodone 10 mg-acetaminophen 325 mg tablet RxNorm: 717439 1 Tablet(s) PO QID as needed tooth abscess pain or back pain 2017 05/30/2017 Inactive Claritin-D 24 Hour 10 mg-240 mg tablet,extended release RxNorm: 1632954 Tablet(s) TAKE ONE TABLET BY MOUTH DAILY 04/19/2017 07/17/2017 Inactive hydrocodone 5 mg-acetaminophen 325 mg tablet RxNorm: 221630 1-2 Tablet(s) PO Q6 as needed 04/18/2017 05/02/2017 Inactive Effexor 75 mg tablet RxNorm: 712025 TAKE ONE TABLET BY MOUTH DAILY 04/13/2017 10/09/2017 Inactive Keflex 500 mg capsule RxNorm: 822228 1 Capsule(s) PO TID 201603/26/2017 Inactive clindamycin 300 mg capsule RxNorm: 936373 1 Capsule(s) PO TID 03/20/2017 03/26/2017 Inactive ceftriaxone 500 mg solution for injection RxNorm: 9322078 1 Gram(s) Inj 03/16/2017 03/16/2017 Inactive clindamycin 300 mg capsule RxNorm: 940103 1 Capsule(s) PO TID 03/16/2017 03/19/2017 Inactive hydrocodone 5 mg-acetaminophen 325 mg tablet RxNorm: 739044 1-2 Tablet(s) PO Q6 as needed 03/16/2017 03/16/2017 Inactive Keflex 500 mg capsule RxNorm: 615925 1 Capsule(s) PO TID 201603/19/2017 Inactive hydrocodone 10 mg-acetaminophen 325 mg tablet RxNorm: 763957 1 Tablet(s) PO QID as needed tooth abscess pain or back pain 03/16/2017 04/14/2017 Inactive simvastatin 40 mg tablet RxNorm: 575744 TAKE ONE TABLET BY MOUTH EVERY NIGHT AT BEDTIME 03/13/2017 09/08/2017 Inactive clindamycin 300 mg capsule RxNorm: 558348 1 Capsule(s) PO TID 03/10/2017 03/15/2017 Inactive hydrocodone 5 mg-acetaminophen 325 mg tablet RxNorm: 969112 1-2 Tablet(s) PO Q6 as needed 03/03/2017 03/15/2017 Inactive hydrocodone 5 mg-acetaminophen 325 mg tablet RxNorm: 947697 1 to 2 Tablet(s) PO Q6 as needed 02/15/2017 02/25/2017 Inactive hydrocodone 5 mg-acetaminophen 325 mg tablet RxNorm: 302669 1 to 2 Tablet(s) PO Q6 as needed 02/02/2017 02/12/2017 Inactive enalapril 5 mg-hydrochlorothiazide 12.5 mg tablet RxNorm: 277336 TAKE ONE TABLET BY MOUTH DAILY 01/23/2017 06/21/2017 Inactive diclofenac sodium 75 mg tablet,delayed release RxNorm: 843567 TAKE ONE TABLET BY MOUTH TWICE A DAY 01/23/2017 05/22/2017 Inactive hydrocodone 5 mg-acetaminophen 325 mg tablet RxNorm: 459192 1 to 2 Tablet(s) PO Q6 as needed 01/12/2017 01/22/2017 Inactive hydrocodone 5 mg-acetaminophen 325 mg tablet RxNorm: 635997 1 to 2 Tablet(s) PO Q6 as needed 12/29/2016 01/08/2017 Inactive hydrocodone 5 mg-acetaminophen 325 mg tablet RxNorm: 453221 1 to 2 Tablet(s) PO Q6 as needed 12/16/2016 12/26/2016 Inactive Cymbalta 60 mg capsule,delayed release RxNorm: 303260 TAKE ONE CAPSULE BY MOUTH DAILY 12/14/2016 05/12/2017 Inactive hydrocodone 5 mg-acetaminophen 325 mg tablet RxNorm: 296286 1 to 2 Tablet(s) PO Q6 as needed 11/30/2016 12/10/2016 Inactive Voltaren 1 % topical gel RxNorm: 444458 2 Gram(s) TOP QID bilateral SI joints 11/16/2016 01/14/2017 Inactive diclofenac sodium 75 mg tablet,delayed release RxNorm: 803021 TAKE ONE TABLET BY MOUTH TWICE A DAY 10/31/2016 01/22/2017 Inactive hydrocodone 5 mg-acetaminophen 325 mg tablet RxNorm: 094085 1 to 2 Tablet(s) PO Q6 as needed 10/27/2016 11/06/2016 Inactive hydrocodone 5 mg-acetaminophen 325 mg tablet RxNorm: 596967 1 to 2 Tablet(s) PO Q6 as needed 10/05/2016 10/15/2016 Inactive Effexor 75 mg tablet RxNorm: 183445 TAKE ONE TABLET BY MOUTH DAILY 10/03/2016 03/31/2017 Inactive Claritin-D 24 Hour 10 mg-240 mg tablet,extended release RxNorm: 0724933 Tablet(s) TAKE ONE TABLET BY MOUTH DAILY 09/26/2016 12/24/2016 Inactive hydrocodone 5 mg-acetaminophen 325 mg tablet RxNorm: 607758 1 to 2 Tablet(s) PO Q6 as needed 09/09/2016 09/19/2016 Inactive hydrocodone 5 mg-acetaminophen 325 mg tablet RxNorm: 071629 1 to 2 Tablet(s) PO Q6 as needed 08/19/2016 08/29/2016 Inactive hydrocodone 5 mg-acetaminophen 325 mg tablet RxNorm: 256891 1 to 2 Tablet(s) PO Q6 as needed 08/01/2016 08/11/2016 Inactive enalapril 5 mg-hydrochlorothiazide 12.5 mg tablet RxNorm: 927784 Tablet(s) TAKE ONE TABLET BY MOUTH DAILY 07/18/201601/13 Inactive Movantik 25 mg tablet RxNorm: 9361905 1 Tablet(s) PO QAM 201611/07/2017 Inactive hydrocodone 5 mg-acetaminophen 325 mg tablet RxNorm: 756532 1 to 2 Tablet(s) PO Q6 as needed 07/15/2016 07/25/2016 Inactive diclofenac sodium 75 mg tablet,delayed release RxNorm: 310219 TAKE ONE TABLET BY MOUTH TWICE A DAY 06/27/2016 10/24/2016 Inactive hydrocodone 5 mg-acetaminophen 325 mg tablet RxNorm: 400486 1 to 2 Tablet(s) PO Q6 as needed 06/16/2016 06/26/2016 Inactive Claritin-D 24 Hour 10 mg-240 mg tablet,extended release RxNorm: 0241418 Tablet(s) TAKE ONE TABLET BY MOUTH DAILY 06/10/2016 08/08/2016 Inactive Metanx (algal oil) 3 mg-35 mg-2 mg-90.314 mg capsule RxNorm: Capsule(s) TAKE ONE CAPSULE BY MOUTH TWO TIMES DAILY 06/02/2016 05/27/2017 Inactive hydrocodone 5 mg-acetaminophen 325 mg tablet RxNorm: 529074 1 to 2 Tablet(s) PO Q6 as needed 05/27/2016 06/06/2016 Inactive Valium 5 mg tablet RxNorm: 815019 Tablet(s) TAKE ONE TABLET BY MOUTH EVERY NIGHT AT BEDTIME 05/16/2016 07/14/2016 Inactive Metanx (algal oil) 3 mg-35 mg-2 mg-90.314 mg capsule RxNorm: TAKE ONE CAPSULE BY MOUTH TWO TIMES DAILY 05/11/20162015 Inactive hydrocodone 5 mg-acetaminophen 325 mg tablet RxNorm: 850693 1 to 2 Tablet(s) PO Q6 as needed 04/25/2016 05/02/2016 Inactive [SAVINGS FOR NON-COVERED DRUGS -- BIN: [id number], PCN: ASPROD1, Group: XXXXX, ID# [id number], Questions: . THIS IS NOT INSURANCE.] hydrocodone 5 mg-acetaminophen 325 mg tablet RxNorm: 477315 1 to 2 Tablet(s) PO Q6 as needed 04/01/2016 04/08/2016 Inactive [SAVINGS FOR NON-COVERED DRUGS -- BIN: 978693, PCN: ASPROD1, Group: XXXXX, ID# [id number], Questions: . THIS IS NOT INSURANCE.] diclofenac sodium 75 mg tablet,delayed release RxNorm: 299557 TAKE ONE TABLET BY MOUTH TWICE A DAY 03/21/2016 06/18/2016 Inactive enalapril 5 mg-hydrochlorothiazide 12.5 mg tablet RxNorm: 094269 TAKE ONE TABLET BY MOUTH DAILY 03/21/2016 07/17/2016 Inactive Claritin-D 24 Hour 10 mg-240 mg tablet,extended release RxNorm: 0249186 Tablet(s) TAKE ONE TABLET BY MOUTH DAILY 03/11/2016 06/08/2016 Inactive hydrocodone 5 mg-acetaminophen 325 mg tablet RxNorm: 478756 1 to 2 Tablet(s) PO Q6 as needed 03/08/2016 03/15/2016 Inactive [SAVINGS FOR NON-COVERED DRUGS -- BIN: 905099, PCN: ASPROD1, Group: XXXXX, ID# [id number], Questions: . THIS IS NOT INSURANCE.] simvastatin 40 mg tablet RxNorm: 238966 1 Tablet(s) PO QHS 10/03/2016 Inactive Effexor 75 mg tablet RxNorm: 950478 Tablet(s) TAKE ONE TABLET BY MOUTH DAILY 03/08/2016 10/02/2016 Inactive simvastatin 40 mg tablet RxNorm: 635821 TAKE ONE TABLET BY MOUTH EVERY NIGHT AT BEDTIME 02/05/2016 05/04/2016 Inactive Request already responded to by other means (e.g. phone or fax) hydrocodone 5 mg-acetaminophen 325 mg tablet RxNorm: 865053 1 to 2 Tablet(s) PO Q6 as needed 02/02/2016 02/09/2016 Inactive [SAVINGS FOR NON-COVERED DRUGS -- BIN: 067702, PCN: ASPROD1, Group: XXXXX, ID# [id number], Questions: . THIS IS NOT INSURANCE.] simvastatin 40 mg tablet RxNorm: 746898 1 Tablet(s) PO QHS 03/07/2016 Inactive Cymbalta 60 mg capsule,delayed release RxNorm: 951671 TAKE ONE CAPSULE BY MOUTH DAILY 01/14/2016 06/11/2016 Inactive Request already responded to by other means ( e.g. phone or fax) Claritin-D 24 Hour 10 mg-240 mg tablet,extended release RxNorm: 5331855 Tablet(s) TAKE ONE TABLET BY MOUTH DAILY 01/14/2016 02/12/2016 Inactive hydrocodone 5 mg-acetaminophen 325 mg tablet RxNorm: 756594 1 to 2 Tablet(s) PO Q6 as needed 01/14/2016 01/21/2016 Inactive [SAVINGS FOR NON-COVERED DRUGS -- BIN: 635679, PCN: ASPROD1, Group: XXXXX, ID# [id number], Questions: . THIS IS NOT INSURANCE.] Claritin-D 24 Hour 10 mg-240 mg tablet,extended release RxNorm: 8685028 TAKE ONE TABLET BY MOUTH DAILY 01/14/20162015 Inactive Cymbalta 60 mg capsule,delayed release RxNorm: 958781 Capsule(s) TAKE ONE CAPSULE BY MOUTH DAILY 01/12/2016 01/13/2016 Inactive Claritin-D 24 Hour 10 mg-240 mg tablet,extended release RxNorm: 0437172 TAKE ONE TABLET BY MOUTH DAILY 01/11/20162015 Inactive Claritin-D 24 Hour 10 mg-240 mg tablet,extended release RxNorm: 9318313 TAKE ONE TABLET BY MOUTH DAILY 01/11/20162015 Inactive Claritin-D 24 Hour 10 mg-240 mg tablet,extended release RxNorm: 9695517 TAKE ONE TABLET BY MOUTH DAILY 01/07/20162015 Inactive Effexor 75 mg tablet RxNorm: 159708 TAKE ONE TABLET BY MOUTH DAILY 01/01/2016 02/29/2016 Inactive diclofenac sodium 75 mg tablet,delayed release RxNorm: 149525 TAKE ONE TABLET BY MOUTH TWICE A DAY 12/23/2015 03/20/2016 Inactive enalapril 5 mg-hydrochlorothiazide 12.5 mg tablet RxNorm: 444509 TAKE ONE TABLET BY MOUTH DAILY 12/23/2015 03/20/2016 Inactive hydrocodone 5 mg-acetaminophen 325 mg tablet RxNorm: 939249 1 to 2 Tablet(s) PO Q6 as needed 12/22/2015 12/29/2015 Inactive [SAVINGS FOR NON-COVERED DRUGS -- BIN: 041842, PCN: ASPROD1, Group: XXXXX, ID# [id number], Questions: . THIS IS NOT INSURANCE.] Valium 5 mg tablet RxNorm: 645829 Tablet(s) TAKE ONE TABLET BY MOUTH EVERY NIGHT AT BEDTIME 12/01/2015 04/17/2018 Inactive hydrocodone 5 mg-acetaminophen 325 mg tablet RxNorm: 360210 1 to 2 Tablet(s) PO Q6 as needed 11/30/2015 12/07/2015 Inactive [SAVINGS FOR NON-COVERED DRUGS -- BIN: 913733, PCN: ASPROD1, Group: XXXXX, ID# [id number], Questions: . THIS IS NOT INSURANCE.] hydrocodone 5 mg-acetaminophen 325 mg tablet RxNorm: 750939 1 to 2 Tablet(s) PO Q6 as needed 11/09/2015 11/16/2015 Inactive [SAVINGS FOR NON-COVERED DRUGS -- BIN: 275117, PCN: ASPROD1, Group: XXXXX, ID# [id number], Questions: . THIS IS NOT INSURANCE.] Claritin-D 24 Hour 10 mg-240 mg tablet,extended release RxNorm: 2762999 Tablet(s) TAKE ONE TABLET BY MOUTH DAILY 11/05/2015 11/04/2015 Inactive Claritin-D 24 Hour 10 mg-240 mg tablet,extended release RxNorm: 1344472 Tablet(s) TAKE ONE TABLET BY MOUTH DAILY 11/05/2015 01/06/2016 Inactive Claritin-D 24 Hour 10 mg-240 mg tablet,extended release RxNorm: 2242139 Tablet(s) TAKE ONE TABLET BY MOUTH DAILY 10/30/2015 03/10/2016 Inactive hydrocodone 5 mg-acetaminophen 325 mg tablet RxNorm: 586754 1 to 2 Tablet(s) PO Q6 as needed 10/09/2015 10/16/2015 Inactive [SAVINGS FOR NON-COVERED DRUGS -- BIN: 201897, PCN: ASPROD1, Group: XXXXX, ID# [id number], Questions: . THIS IS NOT INSURANCE.] Effexor 75 mg tablet RxNorm: 043501 TAKE ONE TABLET BY MOUTH DAILY 10/05/2015 12/31/2015 Inactive simvastatin 40 mg tablet RxNorm: 613886 1 Tablet(s) PO QHS 01/31/2016 Inactive hydrocodone 5 mg-acetaminophen 325 mg tablet RxNorm: 945291 1 to 2 Tablet(s) PO Q6 as needed 09/15/2015 09/22/2015 Inactive [SAVINGS FOR NON-COVERED DRUGS -- BIN: 680856, PCN: ASPROD1, Group: XXXXX, ID# [id number], Questions: . THIS IS NOT INSURANCE.] Valium 5 mg tablet RxNorm: 071281 Tablet(s) TAKE ONE TABLET BY MOUTH EVERY NIGHT AT BEDTIME 09/08/2015 04/17/2018 Inactive enalapril 5 mg-hydrochlorothiazide 12.5 mg tablet RxNorm: 725908 Tablet(s) TAKE ONE TABLET BY MOUTH DAILY 08/21/201512/17 Inactive diclofenac sodium 75 mg tablet,delayed release RxNorm: 464318 1 Tablet(s) PO BID 08/21/2015 12/18/2015 Inactive hydrocodone 5 mg-acetaminophen 325 mg tablet RxNorm: 388820 1 to 2 Tablet(s) PO Q6 as needed 08/13/2015 08/20/2015 Inactive [SAVINGS FOR NON-COVERED DRUGS -- BIN: 144957, PCN: ASPROD1, Group: XXXXX, ID# [id number], Questions: . THIS IS NOT INSURANCE.] clindamycin 300 mg capsule RxNorm: 856863 1 Capsule(s) PO TID 08/06/2015 08/10/2015 Inactive Claritin-D 24 Hour 10 mg-240 mg tablet,extended release RxNorm: 3178985 Tablet(s) TAKE ONE TABLET BY MOUTH DAILY 07/23/2015 10/20/2015 Inactive hydrocodone 5 mg-acetaminophen 325 mg tablet RxNorm: 639323 1 to 2 Tablet(s) PO Q6 as needed 07/23/2015 07/30/2015 Inactive [SAVINGS FOR NON-COVERED DRUGS -- BIN: 060416, PCN: ASPROD1, Group: XXXXX, ID# [id number], Questions: . THIS IS NOT INSURANCE.] Claritin-D 24 Hour 10 mg-240 mg tablet,extended release RxNorm: 7352265 TAKE ONE TABLET BY MOUTH DAILY 07/22/20152015 Inactive Valium 5 mg tablet RxNorm: 635533 Tablet(s) TAKE ONE TABLET BY MOUTH EVERY NIGHT AT BEDTIME 07/22/2015 04/17/2018 Inactive Claritin-D 24 Hour 10 mg-240 mg tablet,extended release RxNorm: 7992298 TAKE ONE TABLET BY MOUTH DAILY 07/20/20152015 Inactive Cymbalta 60 mg capsule,delayed release RxNorm: 572965 TAKE ONE CAPSULE BY MOUTH DAILY 07/20/2015 01/11/2016 Inactive cyclobenzaprine 10 mg tablet RxNorm: 172828 TAKE ONE TABLET BY MOUTH AT BEDTIME NEEDED 07/06/2015 08/04/2015 Inactive hydrocodone 5 mg-acetaminophen 325 mg tablet RxNorm: 073211 1 to 2 Tablet(s) PO Q6 as needed 06/23/2015 06/30/2015 Inactive [SAVINGS FOR NON-COVERED DRUGS -- BIN: 531150, PCN: ASPROD1, Group: XXXXX, ID# [id number], Questions: . THIS IS NOT INSURANCE.] Effexor 75 mg tablet RxNorm: 559754 1 Tablet(s) PO daily 201409/28/2015 Inactive hydrocodone 5 mg-acetaminophen 325 mg tablet RxNorm: 960001 1 to 2 Tablet(s) PO Q6 as needed 05/22/2015 05/29/2015 Inactive [SAVINGS FOR NON-COVERED DRUGS -- BIN: 227784, PCN: ASPROD1, Group: XXXXX, ID# [id number], Questions: . THIS IS NOT INSURANCE.] Valium 5 mg tablet RxNorm: 652058 Tablet(s) TAKE ONE TABLET BY MOUTH EVERY NIGHT AT BEDTIME 05/22/2015 04/17/2018 Inactive diclofenac sodium 75 mg tablet,delayed release RxNorm: 749320 1 Tablet(s) PO BID 05/04/2015 08/20/2015 Inactive Metanx (algal oil) 3 mg-35 mg-2 mg-90.314 mg capsule RxNorm: 1 Capsule(s) PO BID 05/04/2015 04/27/2016 Inactive enalapril 5 mg-hydrochlorothiazide 12.5 mg tablet RxNorm: 331513 TAKE ONE TABLET BY MOUTH DAILY 04/27/2015 08/20/2015 Inactive hydrocodone 5 mg-acetaminophen 325 mg tablet RxNorm: 844770 1 to 2 Tablet(s) PO Q6 as needed 04/27/2015 05/04/2015 Inactive [SAVINGS FOR NON-COVERED DRUGS -- BIN: 152265, PCN: ASPROD1, Group: XXXXX, ID# [id number], Questions: . THIS IS NOT INSURANCE.] hydrocodone 5 mg-acetaminophen 325 mg tablet RxNorm: 696600 1 to 2 Tablet(s) PO Q6 as needed 03/26/2015 04/02/2015 Inactive [SAVINGS FOR NON-COVERED DRUGS -- BIN: 816466, PCN: ASPROD1, Group: XXXXX, ID# [id number], Questions: . THIS IS NOT INSURANCE.] Claritin-D 24 Hour 10 mg-240 mg tablet,extended release RxNorm: 0701862 Tablet(s) TAKE ONE TABLET BY MOUTH DAILY 03/24/2015 07/19/2015 Inactive Valium 5 mg tablet RxNorm: 349392 TAKE ONE TABLET BY MOUTH EVERY NIGHT AT BEDTIME 03/05/2015 04/03/2015 Inactive Valium 5 mg tablet RxNorm: 606227 1 Tablet(s) PO daily as needed 03/05/2015 03/05/2015 Inactive [SAVINGS FOR NON-COVERED DRUGS -- BIN:906762, PCN: ASPROD1, Group : XXXXX, ID# [id number], Questions: . THIS IS NOT INSURANCE.] hydrocodone 5 mg-acetaminophen 325 mg tablet RxNorm: 981763 1 to 2 Tablet(s) PO Q6 as needed 02/18/2015 02/25/2015 Inactive [SAVINGS FOR NON-COVERED DRUGS -- BIN: 019927, PCN: ASPROD1, Group: XXXXX, ID# [id number], Questions: . THIS IS NOT INSURANCE.] enalapril 5 mg-hydrochlorothiazide 12.5 mg tablet RxNorm: 352124 1 Tablet(s) PO daily 01/30/2015 04/26/2015 Inactive hydrocodone 5 mg-acetaminophen 325 mg tablet RxNorm: 897255 1 to 2 Tablet(s) PO Q6 as needed 01/22/2015 01/29/2015 Inactive [SAVINGS FOR NON-COVERED DRUGS -- BIN: 921355, PCN: ASPROD1, Group: XXXXX, ID# [id number], Questions: . THIS IS NOT INSURANCE.] Claritin-D 24 Hour 10 mg-240 mg tablet,extended release RxNorm: 4822516 TAKE ONE TABLET BY MOUTH DAILY 01/15/20152014 Inactive Claritin-D 24 Hour 10 mg-240 mg tablet,extended release RxNorm: 3215283 Tablet(s) TAKE ONE TABLET BY MOUTH DAILY 01/15/2015 01/14/2015 Inactive cyclobenzaprine 10 mg tablet RxNorm: 030181 1 Tablet(s) PO QHS as needed 12/29/2014 01/27/2015 Inactive hydrocodone 5 mg-acetaminophen 325 mg tablet RxNorm: 468259 1 to 2 Tablet(s) PO Q6 as needed 12/23/2014 12/30/2014 Inactive [SAVINGS FOR NON-COVERED DRUGS -- BIN: 127188, PCN: ASPROD1, Group: XXXXX, ID# [id number], Questions: . THIS IS NOT INSURANCE.] Cymbalta 60 mg capsule,delayed release RxNorm: 548975 1 Capsule(s) PO daily 12/18/2014 07/15/2015 Inactive Claritin-D 24 Hour 10 mg-240 mg tablet,extended release RxNorm: 6708855 TAKE ONE TABLET BY MOUTH DAILY 12/15/20142014 Inactive Claritin-D 24 Hour 10 mg-240 mg tablet,extended release RxNorm: 2576873 TAKE ONE TABLET BY MOUTH DAILY 12/15/20142014 Inactive Claritin-D 24 Hour 10 mg-240 mg tablet,extended release RxNorm: 6229816 TAKE ONE TABLET BY MOUTH DAILY 12/15/20142014 Inactive Claritin-D 24 Hour 10 mg-240 mg tablet,extended release RxNorm: 5239980 1 Tablet(s ) PO daily 12/10/2014 12/14/2014 Inactive hydrocodone 5 mg-acetaminophen 325 mg tablet RxNorm: 045128 1 to 2 Tablet(s) PO Q6 as needed 12/08/2014 12/22/2014 Inactive [SAVINGS FOR NON-COVERED DRUGS -- BIN: 541890, PCN: ASPROD1, Group: XXXXX, ID# [id number], Questions: . THIS IS NOT INSURANCE.] hydrocodone 5 mg-acetaminophen 325 mg tablet RxNorm: 402708 1 to 2 Tablet(s) PO Q6 as needed 11/25/2014 12/07/2014 Inactive [SAVINGS FOR NON-COVERED DRUGS -- BIN: 344722, PCN: ASPROD1, Group: XXXXX, ID# [id number], Questions: . THIS IS NOT INSURANCE.] Claritin-D 24 Hour 10 mg-240 mg tablet,extended release RxNorm: 2734626 1 Tablet(s ) PO daily 11/07/2014 12/06/2014 Inactive Claritin-D 24 Hour 10 mg-240 mg tablet,extended release RxNorm: 4365523 1 Tablet(s ) PO daily 11/07/2014 11/06/2014 Inactive hydrocodone 5 mg-acetaminophen 325 mg tablet RxNorm: 756079 1 to 2 Tablet(s) PO Q6 as needed 11/03/2014 11/24/2014 Inactive [SAVINGS FOR NON-COVERED DRUGS -- BIN: 889467, PCN: ASPROD1, Group: XXXXX, ID# [id number], Questions: . THIS IS NOT INSURANCE.] Valium 5 mg tablet RxNorm: 820340 1 Tablet(s) PO daily as needed 10/23/2014 12/20/2014 Inactive [SAVINGS FOR NON-COVERED DRUGS -- BIN:031216, PCN: ASPROD1, Group : XXXXX, ID# [id number], Questions: . THIS IS NOT INSURANCE.] Cialis 5 mg tablet RxNorm: 149307 1/2 Tablet(s) PO daily No Stop Date Active [SAVINGS FOR NON-COVERED DRUGS -- BIN:312705, PCN: ASPROD1, Group: XXXXX, ID# [id number], Questions: . THIS IS NOT INSURANCE.] aspirin 81 mg tablet RxNorm: 330852 1 Tablet(s) PO daily No Start Date Active Effexor 75 mg tablet RxNorm: 835768 1 Tablet(s) PO daily No Start Date 05/31/2015 Inactive Valium 5 mg tablet RxNorm: 887131 1 Tablet(s) PO daily as needed No Start Date 10/22/2014 Inactive simvastatin 40 mg tablet RxNorm: 223572 1 Tablet(s) PO QHS No Start Date 10/04/2015 Inactive enalapril 5 mg-hydrochlorothiazide 12.5 mg tablet RxNorm: 019044 oral No Start Date 01/29/2015 Inactive cyclobenzaprine 10 mg tablet RxNorm: 820352 1 Tablet(s) PO as needed No Start Date 12/28/2014 Inactive Cymbalta 60 mg capsule,delayed release RxNorm: 301978 1 Capsule(s) PO daily No Start Date 12/17/2014 Inactive hydrocodone 5 mg-acetaminophen 325 mg tablet RxNorm: 494337 1 to 2 Tablet(s) PO Q6 as needed No Start Date 11/02/2014 Inactive diclofenac sodium 75 mg tablet,delayed release RxNorm: 596482 1 Tablet(s) PO BID No Start Date 2015 Inactive Cialis 5 mg tablet RxNorm: 182573 1 Tablet(s) PO daily No Start Date 10/12/2014 Inactive Medication Administered Medication Codes Instructions Start Date Status ceftriaxone 500 mg solution for injection RxNorm: 8326108 1Gram 03/16/2017 No longer Active Immunizations No [...] Antibody With Reflex For Hcv Antibody Verificat 206743 HEPATITIS C ANTIBODY NEGATIVE 07/19/2016 Total Psa Ord10 PSA 0.75 ng/mL 07/18/2016 Tsh Ord6 hTSH II 1.99 uIU/mL [...] 31.5 pg 07/18/2016 Cbc With Differential Ord2 Mckenzie% 11.2 % 07/18/2016 Cbc With Differential Ord2 [...] 0.69 K/ul 07/18/2016 Cbc With Differential Ord2 Mckenzie ABS# 0.5 K/ul 07/18/2016 Cbc With Differential Ord2 Eos ABS# 0.2 K/ul 07/18/2016 Cbc With Differential Ord2 Baso ABS# 0.0 K/ul 07/18/2016 Comp Metabolic Luk126 NA 136 mEq/L 07/18/2016 Comp Metabolic Fld306 K 4.3 mEq/L 07/18/2016 Comp Metabolic Vxd971 CL 100 mEq/L 07/18/2016 Comp Metabolic Zvf520 CO2 30.0 mEq/L 07/18/2016 Comp Metabolic Ahi312 ANION GAP 10 07/18/2016 Comp Metabolic Qmr306 GLUCOSE 104 mg/dL 07/18/2016 Comp Metabolic Lyz906 Creat 1.0 mg/dL 07/18/2016 Comp Metabolic Dlw601 eGFR 81 ml/min/1.73m2 07/18/2016 Comp Metabolic Ehw107 BUN 21 mg/dL 07/18/2016 Comp Metabolic Uee515 B/C Ratio 20.8 Ratio 07/18/2016 Comp Metabolic Uoc050 CALCIUM 9.5 mg/dL 07/18/2016 Comp Metabolic Iih715 ALK PHOS 45 U/L 07/18/2016 Comp Metabolic Qwy108 AST(SGOT) 26 U/L 07/18/2016 Comp Metabolic Asc512 ALT(SGPT) 52 U/L 07/18/2016 Comp Metabolic Pqe547 BILI T 0.8 mg/dL 07/18/2016 Comp Metabolic Qvt351 ALBUMIN 4.7 g/dL 07/18/2016 Comp Metabolic Erd998 TPRO 6.9 g/dL 07/18/2016 Comp Metabolic Ngk917 GLOB 2.2 g/dL 07/18/2016 Comp Metabolic Peh096 A/G Ratio 2.2 Ratio 07/18/2016 Comp Metabolic Mly784 Osmo 275 mOsmo 07/18/2016 Lipid Ord30 CHOL 180 mg/dL 07/18/2016 Lipid Ord30 HDL 56.0 mg/dl 07/18/2016 Lipid Ord30 TRIG 153 mg/dL 07/18/2016 Lipid Ord30 LDL 93 mg/dL 07/18/2016 Lipid Ord30 C/HDL 3.2 Ratio 07/18/2016 %Hba1C Sqs934 % HbA1c 20098-5 5.8 % 07/18/2016 %Hba1C Ytz772 Gluc Ave 120 mg/dL 07/18/2016 Review of [...] atraumatic 10/20/2017 None Full Exam - General 1995 Musculoskeletal lower extremity ROM - knee: crepitus [...] crepitus 11/06/2014 None Procedures Procedure Codes Date MONICA PER 250 MG CPT-4: J0696 03/16/2017 Vital Signs Date Vital 10/20/2017 Blood Pressure 1: 138/78 Code : 8480-6 BMI: 32.4 Code : 63954-7 Heart Rate 1 : 80 bpm Height: 5'10" SpO2: 98% Weight: 226 lbs 03/20/2017 Blood Pressure 1: 134/72 Code : 8480-6 Heart Rate 1: 87 bpm Height: 5'10" SpO2: 97% 03/16/2017 Blood Pressure 1: 150/84 Code : 8480-6 BMI: 32.4 Code : 48833-3 Heart Rate 1 : 98 bpm Height: 5'10" SpO2: 97% Weight: 226 lbs 03/10/2017 Blood Pressure 1: 140/72 Code : 8480-6 BMI: 32.4 Code : 79207-6 Heart Rate 1 : 81 bpm Height: 5'10" SpO2: 97% Weight: 226 lbs 11/16/2016 Blood Pressure 1: 142/80 Code : 8480-6 BMI: 32.1 Code : 97907-3 Heart Rate 1 : 95 bpm Height: 5'10" SpO2: 98% Weight: 224 lbs 07/15/2016 Blood Pressure 1: 130/78 Code : 8480-6 BMI: 32.0 Code : 56711-9 Heart Rate 1 : 85 bpm Height: 5'10" SpO2: 95% Weight: 223 lbs 03/08/2016 Blood Pressure 1: 138/84 Code : 8480-6 BMI: 31.6 Code : 60127-4 Heart Rate 1 : 86 bpm Height: 5'10" SpO2: 98% Weight: 220 lbs 11/26/2015 Blood Pressure 1: 132/82 Code : 8480-6 BMI: 31.6 Code : 02653-2 Height: 5'10 " Weight: 220 lbs 08/06/2015 Blood Pressure 1: 138/74 Code : 8480-6 BMI: 31.0 Code : 04996-3 Heart Rate 1 : 87 bpm Height: 5'10" SpO2: 95% Weight: 216 lbs 05/04/2015 Blood Pressure 1: 128/80 Code : 8480-6 BMI: 33.6 Code : 45918-6 Heart Rate 1 : 94 bpm Height: 5'10" SpO2: 97% Weight: 234 lbs 11/06/2014 Blood Pressure 1: 132/92 Code : 8480-6 BMI: 31.1 Code : 37918-6 Heart Rate 1 : 88 bpm Height: [...] knee[ICD10: M17.0] [facility] CPT-4: 77313 10/20/2017 [id number] EST. PATIENT, LEVEL IV Diagnosis: Periapical abscess without sinus[ICD10: K04.7] Diagnosis: Cellulitis and abscess of mouth[ICD10: K12.2] [facility] CPT-4: 18031 03/20/2017 ([id number]) 55753 EST. PATIENT, LEVEL III Diagnosis: Periapical abscess without sinus[ICD10: K04.7] Diagnosis: Cellulitis and abscess of mouth[ICD10: K12.2] Mayte Mcfarlane MD, [facility] CPT-4: 50866 03/16/2017 ([id number]) 35281 EST. PATIENT, LEVEL III Diagnosis: Periapical abscess without sinus[ICD10: K04.7] Niya Mcfarlane MD, [facility] CPT-4: 67100 03/10/2017 ([id number]) 89290 EST. PATIENT, LEVEL IV Diagnosis: Essential (primary) hypertension[ICD10: I10] Diagnosis: Low back pain[ICD10: M54.5] Mayte Mcfarlane MD, [facility] CPT- 4: 15733 11/16/2016 ([id number]) 38198 EST. PATIENT, LEVEL IV Diagnosis: Mixed hyperlipidemia[ICD10: E78.2] Diagnosis: Essential (primary) hypertension[ICD10: I10] Diagnosis: Impaired fasting glucose[ICD10: R73.01] Diagnosis: Encounter for screening for malignant neoplasm of prostate[ICD10: Z12.5] Diagnosis: Encounter for screening for other viral diseases[ICD10: Z11.59] Diagnosis: Drug induced constipation[ICD10: K59.03] Niya Mcfarlane MD, [facility] CPT-4: 97522 07/15/2016 ([id number]) 11567 EST. PATIENT, LEVEL III Diagnosis: Bilateral primary osteoarthritis of knee[ICD10: M17.0] Niya Mcfarlane MD, [facility] CPT-4: 75266 03/08/2016 ([id number]) 09013 EST. PATIENT, LEVEL III Diagnosis: Bilateral primary osteoarthritis of knee[ICD10: M17.0] Niya Mcfarlane MD, [facility] CPT-4: 67782 11/26/2015 [id number] EST. PATIENT, LEVEL IV Diagnosis: Cervicalgia[ICD10: M54.2] Diagnosis: Other specified polyneuropathies[ICD10: G62.89] Diagnosis: Dental caries, unspecified[ICD10: K02.9] Diagnosis: Major depressive disorder, single episode, unspecified[ICD10: F32.9] [facility] CPT-4: 73441 08/06/2015 ([id number]) 16226 EST. PATIENT, LEVEL IV Diagnosis: Mixed hyperlipidemia[ICD10: E78.2] Diagnosis: Idiopathic gout, unspecified ankle and foot[ICD10: M10.079] Diagnosis: Other specified polyneuropathies[ICD10: G62.89] Diagnosis: Morbid (severe) obesity due to excess calories[ICD10: E66.01] [facility] CPT-4: 51999 05/04/2015 ([id number]) OFFICE VISIT, NEW - LEVEL 4 Diagnosis: GOUT[ICD9: 274.9] Diagnosis: Sinusitis, acute[ICD9: 461.9] Diagnosis: HYPERLIPIDEMIA[ICD9: 272.4] [facility] CPT- 4: 50760 11/06/2014 Plan of Care Planned Activity Notes Codes Status Date Appointment: Julianna Stanford WPtel: [phone] [phone] (30 min) Complex 10/20/2017 Patient Education: Patient Medication Summary Completed 10/20/2017 Appointment: Julianna Stanford WPtel: [phone] [facility] [place] (15 min) Moderate 10/19/2017 Appointment: Julianna Stanford WPtel: [phone] [facility] (30 min) Complex 03/20/2017 Patient Education: Patient Medication Summary Completed 03/20/2017 Appointment: Mayte Mcfarlane WPtel: [phone] [facility] [place] (15 min) Moderate 03/16/2017 Patient Education: Patient Medication Summary Completed 03/16/2017 Appointment: Niya Bryant WPtel: [phone] [phone] [place] (15 min) Moderate 03/10/2017 Patient Education: Patient Medication Summary Completed 03/10/2017 Patient Education: Obesity Completed 03/10/2017 Appointment: Mayte Mcfarlane WPtel: [phone] [facility] [place] (15 min) Moderate 11/16/2016 Patient Education: Patient Medication Summary Completed 11/16/2016 Patient Education: Obesity Completed 11/16/2016 Patient Education: Hypertension Completed 11/16/2016 [phone] ([facility] min) Moderate 07/15/2016 Patient Education: Patient Medication Summary Completed 07/15/2016 Patient Education: Obesity Completed 07/15/2016 Patient Education: Hypertension Completed 07/15/2016 [facility]ment: [phone] [place] (30 min) Complex 03/08/2016 Patient Education: Patient Medication Summary Completed 03/08/2016 Patient Education: Obesity Completed 03/08/2016 [facility]ment: [phone] [place] (30 min) Complex 11/26/2015 Patient Education: Patient Medication Summary Completed 11/26/2015 Appointment: (30 min) Complex 08/06/2015 Patient Education: Patient Medication Summary Completed 08/06/2015 Patient Education: .Cervicalgia Neck Pain Completed 08/06/2015 Patient Education: Patient Medication Summary Completed 05/04/2015 Appointment: [phone] [place] New Patient 11/06/2014 Patient Education: Patient Medication Summary Completed 11/06/2014 Patient Education: Hypertension Completed 11/06/2014 Instructions No Instructions
--- OUTSIDE RECORDS SUMMARY | 2018-07-11 13:09 | XMS REPORT | CCD ---
Author Author [facility] Organization [facility] Address [address] [place] [address] Phone Care Team Providers Care Security System Installer Name Role Phone PP Unavailable CCM Unavailable Summary Purpose Interface Exchange Insurance Providers Payer name Policy type / Coverage type Covered green party ID Effective Begin Date Effective End Date Blue Cross Blue [facility] Blue Cross/Blue Shield [id number] Unknown Unknown Family history Father Diagnosis Age At Onset Cancer Unknown Stroke Unknown Heart Attack Unknown Hyperlipidemia Unknown Diabetes mellitus Type 2 Unknown Arthritis Unknown Heart disease Unknown Mother Diagnosis Age At Onset Arthritis Unknown Hypertension Unknown Breast cancer Unknown Sister Diagnosis Age At Onset Multiple sclerosis Unknown Social History Social History Element Codes Description Effective Dates Employment Unknown 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 Number of children Unknown 3 one daughter lives locally, other children live in [facility] 05/04/2015 Marital status Unknown Danielle 11/06/[address]: 513841086 Has never smoked or chewed tobacco 11/06/2014 Alcohol history Unknown occasionally drinks alcohol 11/06/2014 Allergies, Adverse Reactions, Alerts Substance Reaction Codes Entered Date Inactivated Date Status * NO KNOWN FOOD ALLERGIES Unknown 11/06/2014 No Inactive Date Active amoxicillin RxNorm: 723 11/06/2014 No Inactive Date Active AUGMENTIN RxNorm: 097535 11/06/2014 No Inactive Date Active Past Medical [...] hydrocodone 10 mg-acetaminophen 325 mg tablet RxNorm: 369135 1 Tablet(s) PO QID as needed tooth abscess pain or back pain 04/16/2018 05/15/2018 Active hydrocodone 10 mg-acetaminophen 325 mg tablet RxNorm: 087588 1 Tablet(s) PO QID as needed tooth abscess pain or back pain 03/15/2018 04/13/2018 Inactive Effexor 75 mg tablet RxNorm: 963533 TAKE ONE TABLET BY MOUTH DAILY 03/14/2018 08/10/2018 Active hydrocodone 10 mg-acetaminophen 325 mg tablet RxNorm: 956945 1 Tablet(s) PO QID as needed tooth abscess pain or back pain 02/16/2018 03/14/2018 Inactive simvastatin 40 mg tablet RxNorm: 805671 TAKE ONE TABLET BY MOUTH EVERY NIGHT AT BEDTIME 02/12/2018 06/11/2018 Active Cymbalta 60 mg capsule,delayed release RxNorm: 849575 TAKE ONE CAPSULE BY MOUTH DAILY 02/12/2018 05/12/2018 Active diclofenac sodium 75 mg tablet,delayed release RxNorm: 155109 TAKE ONE TABLET BY MOUTH TWICE A DAY 01/26/2018 04/25/2018 Active hydrocodone 10 mg-acetaminophen 325 mg tablet RxNorm: 040140 1 Tablet(s) PO QID as needed tooth abscess pain or back pain 01/18/2018 02/15/2018 Inactive Claritin-D 24 Hour 10 mg-240 mg tablet,extended release RxNorm: 8558339 Tablet(s) TAKE ONE TABLET BY MOUTH DAILY 01/08/2018 04/07/2018 Inactive enalapril 5 mg-hydrochlorothiazide 12.5 mg tablet RxNorm: 199479 TAKE ONE TABLET BY MOUTH DAILY 12/29/2017 05/27/2018 Active hydrocodone 10 mg-acetaminophen 325 mg tablet RxNorm: 371537 1 Tablet(s) PO QID as needed tooth abscess pain or back pain 12/21/2017 01/17/2018 Inactive Cymbalta 60 mg capsule,delayed release RxNorm: 457023 TAKE ONE CAPSULE BY MOUTH DAILY 12/15/2017 02/11/2018 Inactive hydrocodone 10 mg-acetaminophen 325 mg tablet RxNorm: 395164 1 Tablet(s) PO QID as needed tooth abscess pain or back pain 11/22/2017 11/21/2017 Inactive hydrocodone 10 mg-acetaminophen 325 mg tablet RxNorm: 411902 1 Tablet(s) PO QID as needed tooth abscess pain or back pain 11/22/2017 12/20/2017 Inactive Movantik 25 mg tablet RxNorm: 0933250 1 Tablet(s) PO QAM 201712/07/2017 Inactive hydrocodone 10 mg-acetaminophen 325 mg tablet RxNorm: 327157 1 Tablet(s) PO QID as needed tooth abscess pain or back pain 10/20/2017 11/18/2017 Inactive Effexor 75 mg tablet RxNorm: 131423 TAKE ONE TABLET BY MOUTH DAILY 10/10/2017 03/08/2018 Inactive diclofenac sodium 75 mg tablet,delayed release RxNorm: 468993 TAKE ONE TABLET BY MOUTH TWICE A DAY 10/02/2017 01/25/2018 Inactive hydrocodone 10 mg-acetaminophen 325 mg tablet RxNorm: 933607 1 Tablet(s) PO QID as needed tooth abscess pain or back pain 09/27/2017 10/26/2017 Inactive simvastatin 40 mg tablet RxNorm: 664193 TAKE ONE TABLET BY MOUTH EVERY NIGHT AT BEDTIME 09/13/2017 02/09/2018 Inactive Cymbalta 60 mg capsule,delayed release RxNorm: 250551 TAKE ONE CAPSULE BY MOUTH DAILY 09/13/2017 12/11/2017 Inactive Claritin-D 24 Hour 10 mg-240 mg tablet,extended release RxNorm: 9553191 Tablet(s) TAKE ONE TABLET BY MOUTH DAILY 08/28/2017 11/25/2017 Inactive Claritin-D 24 Hour 10 mg-240 mg tablet,extended release RxNorm: 4181340 TAKE ONE TABLET BY MOUTH DAILY 08/28/20172017 Inactive hydrocodone 10 mg-acetaminophen 325 mg tablet RxNorm: 806184 1 Tablet(s) PO QID as needed tooth abscess pain or back pain 08/25/2017 09/23/2017 Inactive Valium 5 mg tablet RxNorm: 266256 Tablet(s) TAKE ONE TABLET BY MOUTH EVERY NIGHT AT BEDTIME 08/07/2017 11/03/2017 Inactive Metanx (algal oil) 3 mg-35 mg-2 mg-90.314 mg capsule RxNorm: TAKE ONE CAPSULE BY MOUTH TWO TIMES DAILY 08/02/20172017 Active hydrocodone 10 mg-acetaminophen 325 mg tablet RxNorm: 196524 1 Tablet(s) PO QID as needed tooth abscess pain or back pain 07/27/2017 08/24/2017 Inactive enalapril 5 mg-hydrochlorothiazide 12.5 mg tablet RxNorm: 181012 TAKE ONE TABLET BY MOUTH DAILY 07/03/2017 12/28/2017 Inactive hydrocodone 10 mg-acetaminophen 325 mg tablet RxNorm: 668219 1 Tablet(s) PO QID as needed tooth abscess pain or back pain 06/23/2017 07/22/2017 Inactive hydrocodone 10 mg-acetaminophen 325 mg tablet RxNorm: 403683 1 Tablet(s) PO QID as needed tooth abscess pain or back pain 05/31/2017 06/22/2017 Inactive diclofenac sodium 75 mg tablet,delayed release RxNorm: 894004 TAKE ONE TABLET BY MOUTH TWICE A DAY 05/29/2017 09/25/2017 Inactive Valium 5 mg tablet RxNorm: 710077 Tablet(s) TAKE ONE TABLET BY MOUTH EVERY NIGHT AT BEDTIME 05/16/2017 06/13/2017 Inactive Cymbalta 60 mg capsule,delayed release RxNorm: 496586 TAKE ONE CAPSULE BY MOUTH DAILY 05/15/2017 09/11/2017 Inactive hydrocodone 10 mg-acetaminophen 325 mg tablet RxNorm: 457153 1 Tablet(s) PO QID as needed tooth abscess pain or back pain 2017 05/30/2017 Inactive Claritin-D 24 Hour 10 mg-240 mg tablet,extended release RxNorm: 5796086 Tablet(s) TAKE ONE TABLET BY MOUTH DAILY 04/19/2017 07/17/2017 Inactive hydrocodone 5 mg-acetaminophen 325 mg tablet RxNorm: 085522 1-2 Tablet(s) PO Q6 as needed 04/18/2017 05/02/2017 Inactive Effexor 75 mg tablet RxNorm: 332897 TAKE ONE TABLET BY MOUTH DAILY 04/13/2017 10/09/2017 Inactive Keflex 500 mg capsule RxNorm: 107780 1 Capsule(s) PO TID 201603/26/2017 Inactive clindamycin 300 mg capsule RxNorm: 309005 1 Capsule(s) PO TID 03/20/2017 03/26/2017 Inactive ceftriaxone 500 mg solution for injection RxNorm: 6748615 1 Gram(s) Inj 03/16/2017 03/16/2017 Inactive clindamycin 300 mg capsule RxNorm: 653109 1 Capsule(s) PO TID 03/16/2017 03/19/2017 Inactive hydrocodone 5 mg-acetaminophen 325 mg tablet RxNorm: 576948 1-2 Tablet(s) PO Q6 as needed 03/16/2017 03/16/2017 Inactive Keflex 500 mg capsule RxNorm: 263240 1 Capsule(s) PO TID 201603/19/2017 Inactive hydrocodone 10 mg-acetaminophen 325 mg tablet RxNorm: 095093 1 Tablet(s) PO QID as needed tooth abscess pain or back pain 03/16/2017 04/14/2017 Inactive simvastatin 40 mg tablet RxNorm: 737136 TAKE ONE TABLET BY MOUTH EVERY NIGHT AT BEDTIME 03/13/2017 09/08/2017 Inactive clindamycin 300 mg capsule RxNorm: 810609 1 Capsule(s) PO TID 03/10/2017 03/15/2017 Inactive hydrocodone 5 mg-acetaminophen 325 mg tablet RxNorm: 959363 1-2 Tablet(s) PO Q6 as needed 03/03/2017 03/15/2017 Inactive hydrocodone 5 mg-acetaminophen 325 mg tablet RxNorm: 677190 1 to 2 Tablet(s) PO Q6 as needed 02/15/2017 02/25/2017 Inactive hydrocodone 5 mg-acetaminophen 325 mg tablet RxNorm: 267309 1 to 2 Tablet(s) PO Q6 as needed 02/02/2017 02/12/2017 Inactive enalapril 5 mg-hydrochlorothiazide 12.5 mg tablet RxNorm: 448514 TAKE ONE TABLET BY MOUTH DAILY 01/23/2017 06/21/2017 Inactive diclofenac sodium 75 mg tablet,delayed release RxNorm: 537561 TAKE ONE TABLET BY MOUTH TWICE A DAY 01/23/2017 05/22/2017 Inactive hydrocodone 5 mg-acetaminophen 325 mg tablet RxNorm: 286345 1 to 2 Tablet(s) PO Q6 as needed 01/12/2017 01/22/2017 Inactive hydrocodone 5 mg-acetaminophen 325 mg tablet RxNorm: 991920 1 to 2 Tablet(s) PO Q6 as needed 12/29/2016 01/08/2017 Inactive hydrocodone 5 mg-acetaminophen 325 mg tablet RxNorm: 279324 1 to 2 Tablet(s) PO Q6 as needed 12/16/2016 12/26/2016 Inactive Cymbalta 60 mg capsule,delayed release RxNorm: 077123 TAKE ONE CAPSULE BY MOUTH DAILY 12/14/2016 05/12/2017 Inactive hydrocodone 5 mg-acetaminophen 325 mg tablet RxNorm: 783739 1 to 2 Tablet(s) PO Q6 as needed 11/30/2016 12/10/2016 Inactive Voltaren 1 % topical gel RxNorm: 898893 2 Gram(s) TOP QID bilateral SI joints 11/16/2016 01/14/2017 Inactive diclofenac sodium 75 mg tablet,delayed release RxNorm: 809104 TAKE ONE TABLET BY MOUTH TWICE A DAY 10/31/2016 01/22/2017 Inactive hydrocodone 5 mg-acetaminophen 325 mg tablet RxNorm: 051431 1 to 2 Tablet(s) PO Q6 as needed 10/27/2016 11/06/2016 Inactive hydrocodone 5 mg-acetaminophen 325 mg tablet RxNorm: 856858 1 to 2 Tablet(s) PO Q6 as needed 10/05/2016 10/15/2016 Inactive Effexor 75 mg tablet RxNorm: 631016 TAKE ONE TABLET BY MOUTH DAILY 10/03/2016 03/31/2017 Inactive Claritin-D 24 Hour 10 mg-240 mg tablet,extended release RxNorm: 3719367 Tablet(s) TAKE ONE TABLET BY MOUTH DAILY 09/26/2016 12/24/2016 Inactive hydrocodone 5 mg-acetaminophen 325 mg tablet RxNorm: 732474 1 to 2 Tablet(s) PO Q6 as needed 09/09/2016 09/19/2016 Inactive hydrocodone 5 mg-acetaminophen 325 mg tablet RxNorm: 578731 1 to 2 Tablet(s) PO Q6 as needed 08/19/2016 08/29/2016 Inactive hydrocodone 5 mg-acetaminophen 325 mg tablet RxNorm: 296351 1 to 2 Tablet(s) PO Q6 as needed 08/01/2016 08/11/2016 Inactive enalapril 5 mg-hydrochlorothiazide 12.5 mg tablet RxNorm: 890020 Tablet(s) TAKE ONE TABLET BY MOUTH DAILY 07/18/201601/13 Inactive Movantik 25 mg tablet RxNorm: 1011523 1 Tablet(s) PO QAM 201611/07/2017 Inactive hydrocodone 5 mg-acetaminophen 325 mg tablet RxNorm: 456148 1 to 2 Tablet(s) PO Q6 as needed 07/15/2016 07/25/2016 Inactive diclofenac sodium 75 mg tablet,delayed release RxNorm: 403078 TAKE ONE TABLET BY MOUTH TWICE A DAY 06/27/2016 10/24/2016 Inactive hydrocodone 5 mg-acetaminophen 325 mg tablet RxNorm: 975050 1 to 2 Tablet(s) PO Q6 as needed 06/16/2016 06/26/2016 Inactive Claritin-D 24 Hour 10 mg-240 mg tablet,extended release RxNorm: 9904784 Tablet(s) TAKE ONE TABLET BY MOUTH DAILY 06/10/2016 08/08/2016 Inactive Metanx (algal oil) 3 mg-35 mg-2 mg-90.314 mg capsule RxNorm: Capsule(s) TAKE ONE CAPSULE BY MOUTH TWO TIMES DAILY 06/02/2016 05/27/2017 Inactive hydrocodone 5 mg-acetaminophen 325 mg tablet RxNorm: 428578 1 to 2 Tablet(s) PO Q6 as needed 05/27/2016 06/06/2016 Inactive Valium 5 mg tablet RxNorm: 641160 Tablet(s) TAKE ONE TABLET BY MOUTH EVERY NIGHT AT BEDTIME 05/16/2016 07/14/2016 Inactive Metanx (algal oil) 3 mg-35 mg-2 mg-90.314 mg capsule RxNorm: TAKE ONE CAPSULE BY MOUTH TWO TIMES DAILY 05/11/20162015 Inactive hydrocodone 5 mg-acetaminophen 325 mg tablet RxNorm: 542206 1 to 2 Tablet(s) PO Q6 as needed 04/25/2016 05/02/2016 Inactive [SAVINGS FOR NON-COVERED DRUGS -- BIN: 049227, PCN: ASPROD1, Group: XXXXX, ID# [id number], Questions: . THIS IS NOT INSURANCE.] hydrocodone 5 mg-acetaminophen 325 mg tablet RxNorm: 746073 1 to 2 Tablet(s) PO Q6 as needed 04/01/2016 04/08/2016 Inactive [SAVINGS FOR NON-COVERED DRUGS -- BIN: 948500, PCN: ASPROD1, Group: XXXXX, ID# [id number], Questions: . THIS IS NOT INSURANCE.] diclofenac sodium 75 mg tablet,delayed release RxNorm: 752951 TAKE ONE TABLET BY MOUTH TWICE A DAY 03/21/2016 06/18/2016 Inactive enalapril 5 mg-hydrochlorothiazide 12.5 mg tablet RxNorm: 924669 TAKE ONE TABLET BY MOUTH DAILY 03/21/2016 07/17/2016 Inactive Claritin-D 24 Hour 10 mg-240 mg tablet,extended release RxNorm: 8978741 Tablet(s) TAKE ONE TABLET BY MOUTH DAILY 03/11/2016 06/08/2016 Inactive hydrocodone 5 mg-acetaminophen 325 mg tablet RxNorm: 254397 1 to 2 Tablet(s) PO Q6 as needed 03/08/2016 03/15/2016 Inactive [SAVINGS FOR NON-COVERED DRUGS -- BIN: 035385, PCN: ASPROD1, Group: XXXXX, ID# [id number], Questions: . THIS IS NOT INSURANCE.] simvastatin 40 mg tablet RxNorm: 263687 1 Tablet(s) PO QHS 10/03/2016 Inactive Effexor 75 mg tablet RxNorm: 691619 Tablet(s) TAKE ONE TABLET BY MOUTH DAILY 03/08/2016 10/02/2016 Inactive simvastatin 40 mg tablet RxNorm: 883128 TAKE ONE TABLET BY MOUTH EVERY NIGHT AT BEDTIME 02/05/2016 05/04/2016 Inactive Request already responded to by other means (e.g. phone or fax) hydrocodone 5 mg-acetaminophen 325 mg tablet RxNorm: 917966 1 to 2 Tablet(s) PO Q6 as needed 02/02/2016 02/09/2016 Inactive [SAVINGS FOR NON-COVERED DRUGS -- BIN: 301881, PCN: ASPROD1, Group: XXXXX, ID# [id number], Questions: . THIS IS NOT INSURANCE.] simvastatin 40 mg tablet RxNorm: 207256 1 Tablet(s) PO QHS 03/07/2016 Inactive Cymbalta 60 mg capsule,delayed release RxNorm: 257375 TAKE ONE CAPSULE BY MOUTH DAILY 01/14/2016 06/11/2016 Inactive Request already responded to by other means ( e.g. phone or fax) Claritin-D 24 Hour 10 mg-240 mg tablet,extended release RxNorm: 5183093 Tablet(s) TAKE ONE TABLET BY MOUTH DAILY 01/14/2016 02/12/2016 Inactive hydrocodone 5 mg-acetaminophen 325 mg tablet RxNorm: 540204 1 to 2 Tablet(s) PO Q6 as needed 01/14/2016 01/21/2016 Inactive [SAVINGS FOR NON-COVERED DRUGS -- BIN: 347331, PCN: ASPROD1, Group: XXXXX, ID# [id number], Questions: . THIS IS NOT INSURANCE.] Claritin-D 24 Hour 10 mg-240 mg tablet,extended release RxNorm: 0349356 TAKE ONE TABLET BY MOUTH DAILY 01/14/20162015 Inactive Cymbalta 60 mg capsule,delayed release RxNorm: 289685 Capsule(s) TAKE ONE CAPSULE BY MOUTH DAILY 01/12/2016 01/13/2016 Inactive Claritin-D 24 Hour 10 mg-240 mg tablet,extended release RxNorm: 6110306 TAKE ONE TABLET BY MOUTH DAILY 01/11/20162015 Inactive Claritin-D 24 Hour 10 mg-240 mg tablet,extended release RxNorm: 4503453 TAKE ONE TABLET BY MOUTH DAILY 01/11/20162015 Inactive Claritin-D 24 Hour 10 mg-240 mg tablet,extended release RxNorm: 1526777 TAKE ONE TABLET BY MOUTH DAILY 01/07/20162015 Inactive Effexor 75 mg tablet RxNorm: 693613 TAKE ONE TABLET BY MOUTH DAILY 01/01/2016 02/29/2016 Inactive diclofenac sodium 75 mg tablet,delayed release RxNorm: 025384 TAKE ONE TABLET BY MOUTH TWICE A DAY 12/23/2015 03/20/2016 Inactive enalapril 5 mg-hydrochlorothiazide 12.5 mg tablet RxNorm: 373052 TAKE ONE TABLET BY MOUTH DAILY 12/23/2015 03/20/2016 Inactive hydrocodone 5 mg-acetaminophen 325 mg tablet RxNorm: 198674 1 to 2 Tablet(s) PO Q6 as needed 12/22/2015 12/29/2015 Inactive [SAVINGS FOR NON-COVERED DRUGS -- BIN: 847470, PCN: ASPROD1, Group: XXXXX, ID# [id number], Questions: . THIS IS NOT INSURANCE.] Valium 5 mg tablet RxNorm: 726924 Tablet(s) TAKE ONE TABLET BY MOUTH EVERY NIGHT AT BEDTIME 12/01/2015 01/28/2016 Inactive hydrocodone 5 mg-acetaminophen 325 mg tablet RxNorm: 074373 1 to 2 Tablet(s) PO Q6 as needed 11/30/2015 12/07/2015 Inactive [SAVINGS FOR NON-COVERED DRUGS -- BIN: 910741, PCN: ASPROD1, Group: XXXXX, ID# [id number], Questions: . THIS IS NOT INSURANCE.] hydrocodone 5 mg-acetaminophen 325 mg tablet RxNorm: 780177 1 to 2 Tablet(s) PO Q6 as needed 11/09/2015 11/16/2015 Inactive [SAVINGS FOR NON-COVERED DRUGS -- BIN: 980818, PCN: ASPROD1, Group: XXXXX, ID# [id number], Questions: . THIS IS NOT INSURANCE.] Claritin-D 24 Hour 10 mg-240 mg tablet,extended release RxNorm: 7151822 Tablet(s) TAKE ONE TABLET BY MOUTH DAILY 11/05/2015 11/04/2015 Inactive Claritin-D 24 Hour 10 mg-240 mg tablet,extended release RxNorm: 4737782 Tablet(s) TAKE ONE TABLET BY MOUTH DAILY 11/05/2015 01/06/2016 Inactive Claritin-D 24 Hour 10 mg-240 mg tablet,extended release RxNorm: 1551852 Tablet(s) TAKE ONE TABLET BY MOUTH DAILY 10/30/2015 03/10/2016 Inactive hydrocodone 5 mg-acetaminophen 325 mg tablet RxNorm: 825354 1 to 2 Tablet(s) PO Q6 as needed 10/09/2015 10/16/2015 Inactive [SAVINGS FOR NON-COVERED DRUGS -- BIN: 763060, PCN: ASPROD1, Group: XXXXX, ID# [id number], Questions: . THIS IS NOT INSURANCE.] Effexor 75 mg tablet RxNorm: 836101 TAKE ONE TABLET BY MOUTH DAILY 10/05/2015 12/31/2015 Inactive simvastatin 40 mg tablet RxNorm: 404056 1 Tablet(s) PO QHS 01/31/2016 Inactive hydrocodone 5 mg-acetaminophen 325 mg tablet RxNorm: 383087 1 to 2 Tablet(s) PO Q6 as needed 09/15/2015 09/22/2015 Inactive [SAVINGS FOR NON-COVERED DRUGS -- BIN: 347096, PCN: ASPROD1, Group: XXXXX, ID# [id number], Questions: . THIS IS NOT INSURANCE.] Valium 5 mg tablet RxNorm: 544969 Tablet(s) TAKE ONE TABLET BY MOUTH EVERY NIGHT AT BEDTIME 09/08/2015 11/05/2015 Inactive enalapril 5 mg-hydrochlorothiazide 12.5 mg tablet RxNorm: 094668 Tablet(s) TAKE ONE TABLET BY MOUTH DAILY 08/21/201512/17 Inactive diclofenac sodium 75 mg tablet,delayed release RxNorm: 557824 1 Tablet(s) PO BID 08/21/2015 12/18/2015 Inactive hydrocodone 5 mg-acetaminophen 325 mg tablet RxNorm: 722906 1 to 2 Tablet(s) PO Q6 as needed 08/13/2015 08/20/2015 Inactive [SAVINGS FOR NON-COVERED DRUGS -- BIN: 320024, PCN: ASPROD1, Group: XXXXX, ID# [id number], Questions: . THIS IS NOT INSURANCE.] clindamycin 300 mg capsule RxNorm: 116852 1 Capsule(s) PO TID 08/06/2015 08/10/2015 Inactive Claritin-D 24 Hour 10 mg-240 mg tablet,extended release RxNorm: 9535458 Tablet(s) TAKE ONE TABLET BY MOUTH DAILY 07/23/2015 10/20/2015 Inactive hydrocodone 5 mg-acetaminophen 325 mg tablet RxNorm: 163265 1 to 2 Tablet(s) PO Q6 as needed 07/23/2015 07/30/2015 Inactive [SAVINGS FOR NON-COVERED DRUGS -- BIN: 443813, PCN: ASPROD1, Group: XXXXX, ID# [email or web address], Questions: . THIS IS NOT INSURANCE.] Valium 5 mg tablet RxNorm: 998016 Tablet(s) TAKE ONE TABLET BY MOUTH EVERY NIGHT AT BEDTIME 07/22/2015 08/18/2015 Inactive Claritin-D 24 Hour 10 mg-240 mg tablet,extended release RxNorm: 4560650 TAKE ONE TABLET BY MOUTH DAILY 07/22/20152015 Inactive Claritin-D 24 Hour 10 mg-240 mg tablet,extended release RxNorm: 5194633 TAKE ONE TABLET BY MOUTH DAILY 07/20/20152015 Inactive Cymbalta 60 mg capsule,delayed release RxNorm: 792201 TAKE ONE CAPSULE BY MOUTH DAILY 07/20/2015 01/11/2016 Inactive cyclobenzaprine 10 mg tablet RxNorm: 171720 TAKE ONE TABLET BY MOUTH AT BEDTIME NEEDED 07/06/2015 08/04/2015 Inactive hydrocodone 5 mg-acetaminophen 325 mg tablet RxNorm: 937839 1 to 2 Tablet(s) PO Q6 as needed 06/23/2015 06/30/2015 Inactive [SAVINGS FOR NON-COVERED DRUGS -- BIN: 270408, PCN: ASPROD1, Group: XXXXX, ID# [id number], Questions: . THIS IS NOT INSURANCE.] Effexor 75 mg tablet RxNorm: 780887 1 Tablet(s) PO daily 201409/28/2015 Inactive Valium 5 mg tablet RxNorm: 267593 Tablet(s) TAKE ONE TABLET BY MOUTH EVERY NIGHT AT BEDTIME 05/22/2015 06/19/2015 Inactive hydrocodone 5 mg-acetaminophen 325 mg tablet RxNorm: 850822 1 to 2 Tablet(s) PO Q6 as needed 05/22/2015 05/29/2015 Inactive [SAVINGS FOR NON-COVERED DRUGS -- BIN: 891855, PCN: ASPROD1, Group: XXXXX, ID# [id number], Questions: . THIS IS NOT INSURANCE.] diclofenac sodium 75 mg tablet,delayed release RxNorm: 862680 1 Tablet(s) PO BID 05/04/2015 08/20/2015 Inactive Metanx (algal oil) 3 mg-35 mg-2 mg-90.314 mg capsule RxNorm: 1 Capsule(s) PO BID 05/04/2015 04/27/2016 Inactive enalapril 5 mg-hydrochlorothiazide 12.5 mg tablet RxNorm: 642534 TAKE ONE TABLET BY MOUTH DAILY 04/27/2015 08/20/2015 Inactive hydrocodone 5 mg-acetaminophen 325 mg tablet RxNorm: 375827 1 to 2 Tablet(s) PO Q6 as needed 04/27/2015 05/04/2015 Inactive [SAVINGS FOR NON-COVERED DRUGS -- BIN: 361353, PCN: ASPROD1, Group: XXXXX, ID# [id number], Questions: . THIS IS NOT INSURANCE.] hydrocodone 5 mg-acetaminophen 325 mg tablet RxNorm: 816155 1 to 2 Tablet(s) PO Q6 as needed 03/26/2015 04/02/2015 Inactive [SAVINGS FOR NON-COVERED DRUGS -- BIN: 735808, PCN: ASPROD1, Group: XXXXX, ID# [id number], Questions: . THIS IS NOT INSURANCE.] Claritin-D 24 Hour 10 mg-240 mg tablet,extended release RxNorm: 4308809 Tablet(s) TAKE ONE TABLET BY MOUTH DAILY 03/24/2015 07/19/2015 Inactive Valium 5 mg tablet RxNorm: 599920 TAKE ONE TABLET BY MOUTH EVERY NIGHT AT BEDTIME 03/05/2015 04/03/2015 Inactive Valium 5 mg tablet RxNorm: 214718 1 Tablet(s) PO daily as needed 03/05/2015 03/05/2015 Inactive [SAVINGS FOR NON-COVERED DRUGS -- BIN:[id number], PCN: ASPROD1, Group : XXXXX, ID# [id number], Questions: . THIS IS NOT INSURANCE.] hydrocodone 5 mg-acetaminophen 325 mg tablet RxNorm: 547268 1 to 2 Tablet(s) PO Q6 as needed 02/18/2015 02/25/2015 Inactive [SAVINGS FOR NON-COVERED DRUGS -- BIN: 039139, PCN: ASPROD1, Group: XXXXX, ID# [id number], Questions: . THIS IS NOT INSURANCE.] enalapril 5 mg-hydrochlorothiazide 12.5 mg tablet RxNorm: 882185 1 Tablet(s) PO daily 01/30/2015 04/26/2015 Inactive hydrocodone 5 mg-acetaminophen 325 mg tablet RxNorm: 049435 1 to 2 Tablet(s) PO Q6 as needed 01/22/2015 01/29/2015 Inactive [SAVINGS FOR NON-COVERED DRUGS -- BIN: 692584, PCN: ASPROD1, Group: XXXXX, ID# [id number], Questions: . THIS IS NOT INSURANCE.] Claritin-D 24 Hour 10 mg-240 mg tablet,extended release RxNorm: 8459870 TAKE ONE TABLET BY MOUTH DAILY 01/15/20152014 Inactive Claritin-D 24 Hour 10 mg-240 mg tablet,extended release RxNorm: 9568284 Tablet(s) TAKE ONE TABLET BY MOUTH DAILY 01/15/2015 01/14/2015 Inactive cyclobenzaprine 10 mg tablet RxNorm: 873003 1 Tablet(s) PO QHS as needed 12/29/2014 01/27/2015 Inactive hydrocodone 5 mg-acetaminophen 325 mg tablet RxNorm: 591509 1 to 2 Tablet(s) PO Q6 as needed 12/23/2014 12/30/2014 Inactive [SAVINGS FOR NON-COVERED DRUGS -- BIN: 488694, PCN: ASPROD1, Group: XXXXX, ID# [id number], Questions: . THIS IS NOT INSURANCE.] Cymbalta 60 mg capsule,delayed release RxNorm: 557312 1 Capsule(s) PO daily 12/18/2014 07/15/2015 Inactive Claritin-D 24 Hour 10 mg-240 mg tablet,extended release RxNorm: 6305242 TAKE ONE TABLET BY MOUTH DAILY 12/15/20142014 Inactive Claritin-D 24 Hour 10 mg-240 mg tablet,extended release RxNorm: 4311173 TAKE ONE TABLET BY MOUTH DAILY 12/15/20142014 Inactive Claritin-D 24 Hour 10 mg-240 mg tablet,extended release RxNorm: 7112365 TAKE ONE TABLET BY MOUTH DAILY 12/15/20142014 Inactive Claritin-D 24 Hour 10 mg-240 mg tablet,extended release RxNorm: 5645495 1 Tablet(s ) PO daily 12/10/2014 12/14/2014 Inactive hydrocodone 5 mg-acetaminophen 325 mg tablet RxNorm: 157796 1 to 2 Tablet(s) PO Q6 as needed 12/08/2014 12/22/2014 Inactive [SAVINGS FOR NON-COVERED DRUGS -- BIN: 744994, PCN: ASPROD1, Group: XXXXX, ID# [id number], Questions: . THIS IS NOT INSURANCE.] hydrocodone 5 mg-acetaminophen 325 mg tablet RxNorm: 953187 1 to 2 Tablet(s) PO Q6 as needed 11/25/2014 12/07/2014 Inactive [SAVINGS FOR NON-COVERED DRUGS -- BIN: 459851, PCN: ASPROD1, Group: XXXXX, ID# [id number], Questions: . THIS IS NOT INSURANCE.] Claritin-D 24 Hour 10 mg-240 mg tablet,extended release RxNorm: 4091274 1 Tablet(s ) PO daily 11/07/2014 12/06/2014 Inactive Claritin-D 24 Hour 10 mg-240 mg tablet,extended release RxNorm: 0258769 1 Tablet(s ) PO daily 11/07/2014 11/06/2014 Inactive hydrocodone 5 mg-acetaminophen 325 mg tablet RxNorm: 794863 1 to 2 Tablet(s) PO Q6 as needed 11/03/2014 11/24/2014 Inactive [SAVINGS FOR NON-COVERED DRUGS -- BIN: 081086, PCN: ASPROD1, Group: XXXXX, ID# [id number], Questions: . THIS IS NOT INSURANCE.] Valium 5 mg tablet RxNorm: 323003 1 Tablet(s) PO daily as needed 10/23/2014 12/20/2014 Inactive [SAVINGS FOR NON-COVERED DRUGS -- BIN:617632, PCN: ASPROD1, Group : XXXXX, ID# [id number], Questions: . THIS IS NOT INSURANCE.] Cialis 5 mg tablet RxNorm: 172988 1/2 Tablet(s) PO daily No Stop Date Active [SAVINGS FOR NON-COVERED DRUGS -- BIN:632952, PCN: ASPROD1, Group: XXXXX, ID# [id number], Questions: . THIS IS NOT INSURANCE.] aspirin 81 mg tablet RxNorm: 587573 1 Tablet(s) PO daily No Start Date Active Effexor 75 mg tablet RxNorm: 162981 1 Tablet(s) PO daily No Start Date 05/31/2015 Inactive Valium 5 mg tablet RxNorm: 997453 1 Tablet(s) PO daily as needed No Start Date 10/22/2014 Inactive simvastatin 40 mg tablet RxNorm: 040603 1 Tablet(s) PO QHS No Start Date 10/04/2015 Inactive enalapril 5 mg-hydrochlorothiazide 12.5 mg tablet RxNorm: 038034 oral No Start Date 01/29/2015 Inactive cyclobenzaprine 10 mg tablet RxNorm: 424210 1 Tablet(s) PO as needed No Start Date 12/28/2014 Inactive Cymbalta 60 mg capsule,delayed release RxNorm: 042990 1 Capsule(s) PO daily No Start Date 12/17/2014 Inactive hydrocodone 5 mg-acetaminophen 325 mg tablet RxNorm: 144524 1 to 2 Tablet(s) PO Q6 as needed No Start Date 11/02/2014 Inactive diclofenac sodium 75 mg tablet,delayed release RxNorm: 913625 1 Tablet(s) PO BID No Start Date 2015 Inactive Cialis 5 mg tablet RxNorm: 398845 1 Tablet(s) PO daily No Start Date 10/12/2014 Inactive Medication Administered Medication Codes Instructions Start Date Status ceftriaxone 500 mg solution for injection RxNorm: 4336095 1Gram 03/16/2017 No longer Active Immunizations No [...] Antibody With Reflex For Hcv Antibody Verificat 085523 HEPATITIS C ANTIBODY NEGATIVE 07/19/2016 Lipid Ord30 CHOL 180 mg/dL 07/18/2016 Lipid Ord30 HDL 56.0 mg/dl 07/18/2016 Lipid Ord30 TRIG 153 mg/dL 07/18/2016 Lipid Ord30 LDL 93 mg/dL 07/18/2016 Lipid Ord30 C/HDL 3.2 Ratio 07/18/2016 Comp Metabolic Xzn787 NA 136 mEq/L 07/18/2016 Comp Metabolic Rvb380 K 4.3 mEq/L 07/18/2016 Comp Metabolic Lqr718 CL 100 mEq/L 07/18/2016 Comp Metabolic Qxw022 CO2 30.0 mEq/L 07/18/2016 Comp Metabolic Riq747 ANION GAP 10 07/18/2016 Comp Metabolic Txj911 GLUCOSE 104 mg/dL 07/18/2016 Comp Metabolic Huy957 Creat 1.0 mg/dL 07/18/2016 Comp Metabolic Rjo565 eGFR 81 ml/min/1.73m2 07/18/2016 Comp Metabolic Twa580 BUN 21 mg/dL 07/18/2016 Comp Metabolic Rzb869 B/C Ratio 20.8 Ratio 07/18/2016 Comp Metabolic Fhz182 CALCIUM 9.5 mg/dL 07/18/2016 Comp Metabolic Mss205 ALK PHOS 45 U/L 07/18/2016 Comp Metabolic Xvp183 AST(SGOT) 26 U/L 07/18/2016 Comp Metabolic Hno836 ALT(SGPT) 52 U/L 07/18/2016 Comp Metabolic Wet042 BILI T 0.8 mg/dL 07/18/2016 Comp Metabolic Oqh105 ALBUMIN 4.7 g/dL 07/18/2016 Comp Metabolic Zwe229 TPRO 6.9 g/dL 07/18/2016 Comp Metabolic Vmq704 GLOB 2.2 g/dL 07/18/2016 Comp Metabolic Dhd712 A/G Ratio 2.2 Ratio 07/18/2016 Comp Metabolic Asp949 Osmo 275 mOsmo 07/18/2016 Cbc With Differential [...] 94.0 fl 07/18/2016 Cbc With Differential Ord2 [place]% 11.2 % 07/18/2016 Cbc With Differential Ord2 [...] 0.69 K/ul 07/18/2016 Cbc With Differential Ord2 [place] ABS# 0.5 K/ul 07/18/2016 Cbc With Differential Ord2 Eos ABS# 0.2 K/ul 07/18/2016 Cbc With Differential Ord2 Baso ABS# 0.0 K/ul 07/18/2016 Tsh Ord6 hTSH II 1.99 uIU/mL 07/18/2016 Total Psa Ord10 PSA 0.75 ng/mL 07/18/2016 %Hba1C Arz201 % HbA1c 34591-1 5.8 % 07/18/2016 %Hba1C Kfg321 Gluc Ave 120 mg/dL 07/18/2016 Review of [...] Code : 8480-6 BMI: 32.4 Code : 74774-6 Heart Rate 1 : 80 bpm Height: 5'10" SpO2: 98% Weight: 226 lbs 03/20/2017 Blood Pressure 1: 134/72 Code : 8480-6 Heart Rate 1: 87 bpm Height: 5'10" SpO2: 97% 03/16/2017 Blood Pressure 1: 150/84 Code : 8480-6 BMI: 32.4 Code : 67459-3 Heart Rate 1 : 98 bpm Height: 5'10" SpO2: 97% Weight: 226 lbs 03/10/2017 Blood Pressure 1: 140/72 Code : 8480-6 BMI: 32.4 Code : 64562-4 Heart Rate 1 : 81 bpm Height: 5'10" SpO2: 97% Weight: 226 lbs 11/16/2016 Blood Pressure 1: 142/80 Code : 8480-6 BMI: 32.1 Code : 17615-2 Heart Rate 1 : 95 bpm Height: 5'10" SpO2: 98% Weight: 224 lbs 07/15/2016 Blood Pressure 1: 130/78 Code : 8480-6 BMI: 32.0 Code : 06988-4 Heart Rate 1 : 85 bpm Height: 5'10" SpO2: 95% Weight: 223 lbs 03/08/2016 Blood Pressure 1: 138/84 Code : 8480-6 BMI: 31.6 Code : 93446-5 Heart Rate 1 : 86 bpm Height: 5'10" SpO2: 98% Weight: 220 lbs 11/26/2015 Blood Pressure 1: 132/82 Code : 8480-6 BMI: 31.6 Code : 02460-4 Height: 5'10 " Weight: 220 lbs 08/06/2015 Blood Pressure 1: 138/74 Code : 8480-6 BMI: 31.0 Code : 33849-1 Heart Rate 1 : 87 bpm Height: 5'10" SpO2: 95% Weight: 216 lbs 05/04/2015 Blood Pressure 1: 128/80 Code : 8480-6 BMI: 33.6 Code : 44169-6 Heart Rate 1 : 94 bpm Height: 5'10" SpO2: 97% Weight: 234 lbs 11/06/2014 Blood Pressure 1: 132/92 Code : 8480-6 BMI: 31.1 Code : 67626-6 Heart Rate 1 : 88 bpm Height: [...] knee[ICD10: M17.0] [facility] CPT-4: 91680 10/20/2017 [id number] EST. PATIENT, LEVEL IV Diagnosis: Periapical abscess without sinus[ICD10: K04.7] Diagnosis: Cellulitis and abscess of mouth[ICD10: K12.2] [facility] CPT-4: 75659 03/20/2017 ([id number]) 79538 EST. PATIENT, LEVEL III Diagnosis: Periapical abscess without sinus[ICD10: K04.7] Diagnosis: Cellulitis and abscess of mouth[ICD10: K12.2] Mayte Mcfarlane MD, [facility] CPT-4: 28410 03/16/2017 ([id number]) 83605 EST. PATIENT, LEVEL III Diagnosis: Periapical abscess without sinus[ICD10: K04.7] Niya Mcfarlane MD, [facility] CPT-4: 17375 03/10/2017 ([id number]) 63763 EST. PATIENT, LEVEL IV Diagnosis: Essential (primary) hypertension[ICD10: I10] Diagnosis: Low back pain[ICD10: M54.5] aMyte Mcfarlane MD, [facility] CPT- 4: 25267 11/16/2016 ([id number]) 83513 EST. PATIENT, LEVEL IV Diagnosis: Mixed hyperlipidemia[ICD10: E78.2] Diagnosis: Essential (primary) hypertension[ICD10: I10] Diagnosis: Impaired fasting glucose[ICD10: R73.01] Diagnosis: Encounter for screening for malignant neoplasm of prostate[ICD10: Z12.5] Diagnosis: Encounter for screening for other viral diseases[ICD10: Z11.59] Diagnosis: Drug induced constipation[ICD10: K59.03] Niya Mcfarlane MD, [facility] CPT-4: 33683 07/15/2016 ([id number]) 88924 EST. PATIENT, LEVEL III Diagnosis: Bilateral primary osteoarthritis of knee[ICD10: M17.0] Niya Mcfarlane MD, [facility] CPT-4: 65792 03/08/2016 ([id number]) 49714 EST. PATIENT, LEVEL III Diagnosis: Bilateral primary osteoarthritis of knee[ICD10: M17.0] Niya Mcfarlane MD, [facility] CPT-4: 72208 11/26/2015 [id number] EST. PATIENT, LEVEL IV Diagnosis: Cervicalgia[ICD10: M54.2] Diagnosis: Other specified polyneuropathies[ICD10: G62.89] Diagnosis: Dental caries, unspecified[ICD10: K02.9] Diagnosis: Major depressive disorder, single episode, unspecified[ICD10: F32.9] Niya Mcfarlane MD, [facility] CPT-4: 35286 08/06/2015 ([id number]) 28064 EST. PATIENT, LEVEL IV Diagnosis: Mixed hyperlipidemia[ICD10: E78.2] Diagnosis: Idiopathic gout, unspecified ankle and foot[ICD10: M10.079] Diagnosis: Other specified polyneuropathies[ICD10: G62.89] Diagnosis: Morbid (severe) obesity due to excess calories[ICD10: E66.01] [facility] CPT-4: 97664 05/04/2015 ([id number]) OFFICE VISIT, NEW - LEVEL 4 Diagnosis: GOUT[ICD9: 274.9] Diagnosis: Sinusitis, acute[ICD9: 461.9] Diagnosis: HYPERLIPIDEMIA[ICD9: 272.4] [facility] CPT- 4: 35403 11/06/2014 Plan of Care Planned Activity Notes Codes Status Date Visit Plan: OA knees - pt has chronic pain - has been maintained on current medications, has not sought out other medications, only uses PRN pain medications as directed, and understands the consequences of over- medication. 10/20/2017 Appointment: Julianna Stanford WPtel: [facility] [place] (30 min) Complex 10/20/2017 Patient Education: Patient Medication Summary Completed 10/20/2017 Appointment: Julianna Stanford WPtel: [address] [place], [place] [phone] (15 min) Moderate 10/19/2017 Visit Plan: Cellulitis/Abscess - continue with current treatment course - restart keflex as patient had improvement of symptoms on the rocephin. continue with clindamycin and increase probiotic to tid dosing. Keep follow up appointment with Dr. Hendrix on 03/28. Notify clinic with any changes or concerns, or with any questions. 03/20/2017 Appointment: Julianna Stanford WPtel: [facility] [place] (30 min) Complex 03/20/2017 Patient Education: [...] tid dosing. 03/16/2017 Appointment: Mayte Mcfarlane WPtel: [facility] [place] (15 min) Moderate 03/16/2017 Patient Education: Patient Medication Summary Completed 03/16/2017 Visit Plan: Abscessed tooth-discussed with Dr Mcfarlane- plan for IV abx x 3 days-will start with clindamycin and rocephin today and continue rocephin Monday and Monday-will increase dose of oral clindamycin - rx sent to patient's pharmacy and instructed on use. Patient verbalized understanding of plan. 03/10/2017 Appointment: Niya Bryant WPtel: [facility] [phone] [place] [address] (15 min) Moderate 03/10/2017 Patient Education: Patient [...] they worsen. 11/16/2016 Appointment: Mayte Mcfarlane WPtel: [facility] [place] (15 min) Moderate 11/16/2016 Patient Education: Patient [...] a1c 07/15/2016 Appointment: Niya Bryant WPtel: [phone] [phone] (15 min) Moderate 07/15/2016 Patient [...] over- medication. 03/08/2016 Appointment: Ni[facility]el[facility] [phone] (30 min) Complex 03/08/2016 Patient Education: Patient [...] plan. 11/26/2015 Appointment: Niya Bryant WPtel: [phone] [phone] (30 min) Complex 11/26/2015 Patient [...] medications. 11/06/2014 [facility]ment[phone] [place] [facility] New Patient 11/06/2014 [...]
--- OUTSIDE RECORDS SUMMARY | 2018-07-11 13:10 | XMS REPORT | CCD ---
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 Name Role Phone PP Unavailable CCM Unavailable Summary Purpose Interface Exchange Insurance Providers Payer name Policy type / Coverage type Covered green party ID Effective Begin Date Effective End Date Blue Cross Blue [facility] Blue Cross/Blue Shield [id number] Unknown Unknown Family history Father Diagnosis Age [...] daughter lives locally, other children live in [facility] 05/04/2015 Marital status Unknown Danielle 11/06/[address]: [id number] Has never smoked or chewed tobacco 11/06/2014 Alcohol history Unknown occasionally drinks alcohol 11/06/2014 Allergies, Adverse Reactions, Alerts Substance Reaction Codes Entered Date Inactivated Date Status * NO KNOWN FOOD ALLERGIES Unknown 11/06/2014 No Inactive Date Active amoxicillin RxNorm: 723 11/06/2014 No Inactive Date Active AUGMENTIN RxNorm: 120848 11/06/2014 No Inactive Date Active Past Medical [...] hydrocodone 10 mg-acetaminophen 325 mg tablet RxNorm: 516658 1 Tablet(s) PO QID as needed tooth abscess pain or back pain 04/16/2018 05/15/2018 Active hydrocodone 10 mg-acetaminophen 325 mg tablet RxNorm: 851885 1 Tablet(s) PO QID as needed tooth abscess pain or back pain 03/15/2018 04/13/2018 Inactive Effexor 75 mg tablet RxNorm: 494874 TAKE ONE TABLET BY MOUTH DAILY 03/14/2018 08/10/2018 Active hydrocodone 10 mg-acetaminophen 325 mg tablet RxNorm: 779546 1 Tablet(s) PO QID as needed tooth abscess pain or back pain 02/16/2018 03/14/2018 Inactive simvastatin 40 mg tablet RxNorm: 998914 TAKE ONE TABLET BY MOUTH EVERY NIGHT AT BEDTIME 02/12/2018 06/11/2018 Active Cymbalta 60 mg capsule,delayed release RxNorm: 827909 TAKE ONE CAPSULE BY MOUTH DAILY 02/12/2018 05/12/2018 Active diclofenac sodium 75 mg tablet,delayed release RxNorm: 293709 TAKE ONE TABLET BY MOUTH TWICE A DAY 01/26/2018 04/25/2018 Active hydrocodone 10 mg-acetaminophen 325 mg tablet RxNorm: 435357 1 Tablet(s) PO QID as needed tooth abscess pain or back pain 01/18/2018 02/15/2018 Inactive Claritin-D 24 Hour 10 mg-240 mg tablet,extended release RxNorm: 0216254 Tablet(s) TAKE ONE TABLET BY MOUTH DAILY 01/08/2018 04/07/2018 Inactive enalapril 5 mg-hydrochlorothiazide 12.5 mg tablet RxNorm: 243498 TAKE ONE TABLET BY MOUTH DAILY 12/29/2017 05/27/2018 Active hydrocodone 10 mg-acetaminophen 325 mg tablet RxNorm: 541105 1 Tablet(s) PO QID as needed tooth abscess pain or back pain 12/21/2017 01/17/2018 Inactive Cymbalta 60 mg capsule,delayed release RxNorm: 009760 TAKE ONE CAPSULE BY MOUTH DAILY 12/15/2017 02/11/2018 Inactive hydrocodone 10 mg-acetaminophen 325 mg tablet RxNorm: 316121 1 Tablet(s) PO QID as needed tooth abscess pain or back pain 11/22/2017 11/21/2017 Inactive hydrocodone 10 mg-acetaminophen 325 mg tablet RxNorm: 654703 1 Tablet(s) PO QID as needed tooth abscess pain or back pain 11/22/2017 12/20/2017 Inactive Movantik 25 mg tablet RxNorm: 9788319 1 Tablet(s) PO QAM 201712/07/2017 Inactive hydrocodone 10 mg-acetaminophen 325 mg tablet RxNorm: 641239 1 Tablet(s) PO QID as needed tooth abscess pain or back pain 10/20/2017 11/18/2017 Inactive Effexor 75 mg tablet RxNorm: 830953 TAKE ONE TABLET BY MOUTH DAILY 10/10/2017 03/08/2018 Inactive diclofenac sodium 75 mg tablet,delayed release RxNorm: 524607 TAKE ONE TABLET BY MOUTH TWICE A DAY 10/02/2017 01/25/2018 Inactive hydrocodone 10 mg-acetaminophen 325 mg tablet RxNorm: 188574 1 Tablet(s) PO QID as needed tooth abscess pain or back pain 09/27/2017 10/26/2017 Inactive simvastatin 40 mg tablet RxNorm: 576029 TAKE ONE TABLET BY MOUTH EVERY NIGHT AT BEDTIME 09/13/2017 02/09/2018 Inactive Cymbalta 60 mg capsule,delayed release RxNorm: 475435 TAKE ONE CAPSULE BY MOUTH DAILY 09/13/2017 12/11/2017 Inactive Claritin-D 24 Hour 10 mg-240 mg tablet,extended release RxNorm: 0763125 Tablet(s) TAKE ONE TABLET BY MOUTH DAILY 08/28/2017 11/25/2017 Inactive Claritin-D 24 Hour 10 mg-240 mg tablet,extended release RxNorm: 9727354 TAKE ONE TABLET BY MOUTH DAILY 08/28/20172017 Inactive hydrocodone 10 mg-acetaminophen 325 mg tablet RxNorm: 827688 1 Tablet(s) PO QID as needed tooth abscess pain or back pain 08/25/2017 09/23/2017 Inactive Valium 5 mg tablet RxNorm: 685181 Tablet(s) TAKE ONE TABLET BY MOUTH EVERY NIGHT AT BEDTIME 08/07/2017 11/03/2017 Inactive Metanx (algal oil) 3 mg-35 mg-2 mg-90.314 mg capsule RxNorm: TAKE ONE CAPSULE BY MOUTH TWO TIMES DAILY 08/02/20172017 Active hydrocodone 10 mg-acetaminophen 325 mg tablet RxNorm: 976698 1 Tablet(s) PO QID as needed tooth abscess pain or back pain 07/27/2017 08/24/2017 Inactive enalapril 5 mg-hydrochlorothiazide 12.5 mg tablet RxNorm: 670861 TAKE ONE TABLET BY MOUTH DAILY 07/03/2017 12/28/2017 Inactive hydrocodone 10 mg-acetaminophen 325 mg tablet RxNorm: 849969 1 Tablet(s) PO QID as needed tooth abscess pain or back pain 06/23/2017 07/22/2017 Inactive hydrocodone 10 mg-acetaminophen 325 mg tablet RxNorm: 761260 1 Tablet(s) PO QID as needed tooth abscess pain or back pain 05/31/2017 06/22/2017 Inactive diclofenac sodium 75 mg tablet,delayed release RxNorm: 980451 TAKE ONE TABLET BY MOUTH TWICE A DAY 05/29/2017 09/25/2017 Inactive Valium 5 mg tablet RxNorm: 875797 Tablet(s) TAKE ONE TABLET BY MOUTH EVERY NIGHT AT BEDTIME 05/16/2017 06/13/2017 Inactive Cymbalta 60 mg capsule,delayed release RxNorm: 975479 TAKE ONE CAPSULE BY MOUTH DAILY 05/15/2017 09/11/2017 Inactive hydrocodone 10 mg-acetaminophen 325 mg tablet RxNorm: 850793 1 Tablet(s) PO QID as needed tooth abscess pain or back pain 2017 05/30/2017 Inactive Claritin-D 24 Hour 10 mg-240 mg tablet,extended release RxNorm: 2905701 Tablet(s) TAKE ONE TABLET BY MOUTH DAILY 04/19/2017 07/17/2017 Inactive hydrocodone 5 mg-acetaminophen 325 mg tablet RxNorm: 202570 1-2 Tablet(s) PO Q6 as needed 04/18/2017 05/02/2017 Inactive Effexor 75 mg tablet RxNorm: 216272 TAKE ONE TABLET BY MOUTH DAILY 04/13/2017 10/09/2017 Inactive Keflex 500 mg capsule RxNorm: 349432 1 Capsule(s) PO TID 201603/26/2017 Inactive clindamycin 300 mg capsule RxNorm: 489017 1 Capsule(s) PO TID 03/20/2017 03/26/2017 Inactive ceftriaxone 500 mg solution for injection RxNorm: 9805401 1 Gram(s) Inj 03/16/2017 03/16/2017 Inactive clindamycin 300 mg capsule RxNorm: 528125 1 Capsule(s) PO TID 03/16/2017 03/19/2017 Inactive hydrocodone 5 mg-acetaminophen 325 mg tablet RxNorm: 496621 1-2 Tablet(s) PO Q6 as needed 03/16/2017 03/16/2017 Inactive Keflex 500 mg capsule RxNorm: 409763 1 Capsule(s) PO TID 201603/19/2017 Inactive hydrocodone 10 mg-acetaminophen 325 mg tablet RxNorm: 912045 1 Tablet(s) PO QID as needed tooth abscess pain or back pain 03/16/2017 04/14/2017 Inactive simvastatin 40 mg tablet RxNorm: 996200 TAKE ONE TABLET BY MOUTH EVERY NIGHT AT BEDTIME 03/13/2017 09/08/2017 Inactive clindamycin 300 mg capsule RxNorm: 879804 1 Capsule(s) PO TID 03/10/2017 03/15/2017 Inactive hydrocodone 5 mg-acetaminophen 325 mg tablet RxNorm: 012931 1-2 Tablet(s) PO Q6 as needed 03/03/2017 03/15/2017 Inactive hydrocodone 5 mg-acetaminophen 325 mg tablet RxNorm: 375610 1 to 2 Tablet(s) PO Q6 as needed 02/15/2017 02/25/2017 Inactive hydrocodone 5 mg-acetaminophen 325 mg tablet RxNorm: 240701 1 to 2 Tablet(s) PO Q6 as needed 02/02/2017 02/12/2017 Inactive enalapril 5 mg-hydrochlorothiazide 12.5 mg tablet RxNorm: 223773 TAKE ONE TABLET BY MOUTH DAILY 01/23/2017 06/21/2017 Inactive diclofenac sodium 75 mg tablet,delayed release RxNorm: 432965 TAKE ONE TABLET BY MOUTH TWICE A DAY 01/23/2017 05/22/2017 Inactive hydrocodone 5 mg-acetaminophen 325 mg tablet RxNorm: 747782 1 to 2 Tablet(s) PO Q6 as needed 01/12/2017 01/22/2017 Inactive hydrocodone 5 mg-acetaminophen 325 mg tablet RxNorm: 063080 1 to 2 Tablet(s) PO Q6 as needed 12/29/2016 01/08/2017 Inactive hydrocodone 5 mg-acetaminophen 325 mg tablet RxNorm: 200979 1 to 2 Tablet(s) PO Q6 as needed 12/16/2016 12/26/2016 Inactive Cymbalta 60 mg capsule,delayed release RxNorm: 434510 TAKE ONE CAPSULE BY MOUTH DAILY 12/14/2016 05/12/2017 Inactive hydrocodone 5 mg-acetaminophen 325 mg tablet RxNorm: 384856 1 to 2 Tablet(s) PO Q6 as needed 11/30/2016 12/10/2016 Inactive Voltaren 1 % topical gel RxNorm: 619276 2 Gram(s) TOP QID bilateral SI joints 11/16/2016 01/14/2017 Inactive diclofenac sodium 75 mg tablet,delayed release RxNorm: 128888 TAKE ONE TABLET BY MOUTH TWICE A DAY 10/31/2016 01/22/2017 Inactive hydrocodone 5 mg-acetaminophen 325 mg tablet RxNorm: 832688 1 to 2 Tablet(s) PO Q6 as needed 10/27/2016 11/06/2016 Inactive hydrocodone 5 mg-acetaminophen 325 mg tablet RxNorm: 704626 1 to 2 Tablet(s) PO Q6 as needed 10/05/2016 10/15/2016 Inactive Effexor 75 mg tablet RxNorm: 697201 TAKE ONE TABLET BY MOUTH DAILY 10/03/2016 03/31/2017 Inactive Claritin-D 24 Hour 10 mg-240 mg tablet,extended release RxNorm: 0101024 Tablet(s) TAKE ONE TABLET BY MOUTH DAILY 09/26/2016 12/24/2016 Inactive hydrocodone 5 mg-acetaminophen 325 mg tablet RxNorm: 665659 1 to 2 Tablet(s) PO Q6 as needed 09/09/2016 09/19/2016 Inactive hydrocodone 5 mg-acetaminophen 325 mg tablet RxNorm: 014285 1 to 2 Tablet(s) PO Q6 as needed 08/19/2016 08/29/2016 Inactive hydrocodone 5 mg-acetaminophen 325 mg tablet RxNorm: 325997 1 to 2 Tablet(s) PO Q6 as needed 08/01/2016 08/11/2016 Inactive enalapril 5 mg-hydrochlorothiazide 12.5 mg tablet RxNorm: 326830 Tablet(s) TAKE ONE TABLET BY MOUTH DAILY 07/18/201601/13 Inactive Movantik 25 mg tablet RxNorm: 8669066 1 Tablet(s) PO QAM 201611/07/2017 Inactive hydrocodone 5 mg-acetaminophen 325 mg tablet RxNorm: 722664 1 to 2 Tablet(s) PO Q6 as needed 07/15/2016 07/25/2016 Inactive diclofenac sodium 75 mg tablet,delayed release RxNorm: 059278 TAKE ONE TABLET BY MOUTH TWICE A DAY 06/27/2016 10/24/2016 Inactive hydrocodone 5 mg-acetaminophen 325 mg tablet RxNorm: 405339 1 to 2 Tablet(s) PO Q6 as needed 06/16/2016 06/26/2016 Inactive Claritin-D 24 Hour 10 mg-240 mg tablet,extended release RxNorm: 9324142 Tablet(s) TAKE ONE TABLET BY MOUTH DAILY 06/10/2016 08/08/2016 Inactive Metanx (algal oil) 3 mg-35 mg-2 mg-90.314 mg capsule RxNorm: Capsule(s) TAKE ONE CAPSULE BY MOUTH TWO TIMES DAILY 06/02/2016 05/27/2017 Inactive hydrocodone 5 mg-acetaminophen 325 mg tablet RxNorm: 103455 1 to 2 Tablet(s) PO Q6 as needed 05/27/2016 06/06/2016 Inactive Valium 5 mg tablet RxNorm: 788516 Tablet(s) TAKE ONE TABLET BY MOUTH EVERY NIGHT AT BEDTIME 05/16/2016 07/14/2016 Inactive Metanx (algal oil) 3 mg-35 mg-2 mg-90.314 mg capsule RxNorm: TAKE ONE CAPSULE BY MOUTH TWO TIMES DAILY 05/11/20162015 Inactive hydrocodone 5 mg-acetaminophen 325 mg tablet RxNorm: 928002 1 to 2 Tablet(s) PO Q6 as needed 04/25/2016 05/02/2016 Inactive [SAVINGS FOR NON-COVERED DRUGS -- BIN: 598732, PCN: ASPROD1, Group: XXXXX, ID# [id number], Questions: . THIS IS NOT INSURANCE.] hydrocodone 5 mg-acetaminophen 325 mg tablet RxNorm: 046526 1 to 2 Tablet(s) PO Q6 as needed 04/01/2016 04/08/2016 Inactive [SAVINGS FOR NON-COVERED DRUGS -- BIN: 254586, PCN: ASPROD1, Group: XXXXX, ID# [id number], Questions: . THIS IS NOT INSURANCE.] diclofenac sodium 75 mg tablet,delayed release RxNorm: 493011 TAKE ONE TABLET BY MOUTH TWICE A DAY 03/21/2016 06/18/2016 Inactive enalapril 5 mg-hydrochlorothiazide 12.5 mg tablet RxNorm: 398644 TAKE ONE TABLET BY MOUTH DAILY 03/21/2016 07/17/2016 Inactive Claritin-D 24 Hour 10 mg-240 mg tablet,extended release RxNorm: 2958703 Tablet(s) TAKE ONE TABLET BY MOUTH DAILY 03/11/2016 06/08/2016 Inactive hydrocodone 5 mg-acetaminophen 325 mg tablet RxNorm: 311667 1 to 2 Tablet(s) PO Q6 as needed 03/08/2016 03/15/2016 Inactive [SAVINGS FOR NON-COVERED DRUGS -- BIN: 519079, PCN: ASPROD1, Group: XXXXX, ID# [id number], Questions: . THIS IS NOT INSURANCE.] simvastatin 40 mg tablet RxNorm: 421352 1 Tablet(s) PO QHS 10/03/2016 Inactive Effexor 75 mg tablet RxNorm: 767843 Tablet(s) TAKE ONE TABLET BY MOUTH DAILY 03/08/2016 10/02/2016 Inactive simvastatin 40 mg tablet RxNorm: 754662 TAKE ONE TABLET BY MOUTH EVERY NIGHT AT BEDTIME 02/05/2016 05/04/2016 Inactive Request already responded to by other means (e.g. phone or fax) hydrocodone 5 mg-acetaminophen 325 mg tablet RxNorm: 538240 1 to 2 Tablet(s) PO Q6 as needed 02/02/2016 02/09/2016 Inactive [SAVINGS FOR NON-COVERED DRUGS -- BIN: 191269, PCN: ASPROD1, Group: XXXXX, ID# [id number], Questions: . THIS IS NOT INSURANCE.] simvastatin 40 mg tablet RxNorm: 317704 1 Tablet(s) PO QHS 03/07/2016 Inactive Cymbalta 60 mg capsule,delayed release RxNorm: 692681 TAKE ONE CAPSULE BY MOUTH DAILY 01/14/2016 06/11/2016 Inactive Request already responded to by other means ( e.g. phone or fax) Claritin-D 24 Hour 10 mg-240 mg tablet,extended release RxNorm: 0601395 Tablet(s) TAKE ONE TABLET BY MOUTH DAILY 01/14/2016 02/12/2016 Inactive hydrocodone 5 mg-acetaminophen 325 mg tablet RxNorm: 594034 1 to 2 Tablet(s) PO Q6 as needed 01/14/2016 01/21/2016 Inactive [SAVINGS FOR NON-COVERED DRUGS -- BIN: 694405, PCN: ASPROD1, Group: XXXXX, ID# [id number], Questions: . THIS IS NOT INSURANCE.] Claritin-D 24 Hour 10 mg-240 mg tablet,extended release RxNorm: 3441735 TAKE ONE TABLET BY MOUTH DAILY 01/14/20162015 Inactive Cymbalta 60 mg capsule,delayed release RxNorm: 166365 Capsule(s) TAKE ONE CAPSULE BY MOUTH DAILY 01/12/2016 01/13/2016 Inactive Claritin-D 24 Hour 10 mg-240 mg tablet,extended release RxNorm: 9131229 TAKE ONE TABLET BY MOUTH DAILY 01/11/20162015 Inactive Claritin-D 24 Hour 10 mg-240 mg tablet,extended release RxNorm: 0092211 TAKE ONE TABLET BY MOUTH DAILY 01/11/20162015 Inactive Claritin-D 24 Hour 10 mg-240 mg tablet,extended release RxNorm: 3538817 TAKE ONE TABLET BY MOUTH DAILY 01/07/20162015 Inactive Effexor 75 mg tablet RxNorm: 378117 TAKE ONE TABLET BY MOUTH DAILY 01/01/2016 02/29/2016 Inactive diclofenac sodium 75 mg tablet,delayed release RxNorm: 216161 TAKE ONE TABLET BY MOUTH TWICE A DAY 12/23/2015 03/20/2016 Inactive enalapril 5 mg-hydrochlorothiazide 12.5 mg tablet RxNorm: 380841 TAKE ONE TABLET BY MOUTH DAILY 12/23/2015 03/20/2016 Inactive hydrocodone 5 mg-acetaminophen 325 mg tablet RxNorm: 677008 1 to 2 Tablet(s) PO Q6 as needed 12/22/2015 12/29/2015 Inactive [SAVINGS FOR NON-COVERED DRUGS -- BIN: 294299, PCN: ASPROD1, Group: XXXXX, ID# [id number], Questions: . THIS IS NOT INSURANCE.] Valium 5 mg tablet RxNorm: 699567 Tablet(s) TAKE ONE TABLET BY MOUTH EVERY NIGHT AT BEDTIME 12/01/2015 01/28/2016 Inactive hydrocodone 5 mg-acetaminophen 325 mg tablet RxNorm: 618115 1 to 2 Tablet(s) PO Q6 as needed 11/30/2015 12/07/2015 Inactive [SAVINGS FOR NON-COVERED DRUGS -- BIN: 559080, PCN: ASPROD1, Group: XXXXX, ID# [id number], Questions: . THIS IS NOT INSURANCE.] hydrocodone 5 mg-acetaminophen 325 mg tablet RxNorm: 812479 1 to 2 Tablet(s) PO Q6 as needed 11/09/2015 11/16/2015 Inactive [SAVINGS FOR NON-COVERED DRUGS -- BIN: 195648, PCN: ASPROD1, Group: XXXXX, ID# [id number], Questions: . THIS IS NOT INSURANCE.] Claritin-D 24 Hour 10 mg-240 mg tablet,extended release RxNorm: 6859348 Tablet(s) TAKE ONE TABLET BY MOUTH DAILY 11/05/2015 11/04/2015 Inactive Claritin-D 24 Hour 10 mg-240 mg tablet,extended release RxNorm: 8369899 Tablet(s) TAKE ONE TABLET BY MOUTH DAILY 11/05/2015 01/06/2016 Inactive Claritin-D 24 Hour 10 mg-240 mg tablet,extended release RxNorm: 2143787 Tablet(s) TAKE ONE TABLET BY MOUTH DAILY 10/30/2015 03/10/2016 Inactive hydrocodone 5 mg-acetaminophen 325 mg tablet RxNorm: 926147 1 to 2 Tablet(s) PO Q6 as needed 10/09/2015 10/16/2015 Inactive [SAVINGS FOR NON-COVERED DRUGS -- BIN: 193182, PCN: ASPROD1, Group: XXXXX, ID# [id number], Questions: . THIS IS NOT INSURANCE.] Effexor 75 mg tablet RxNorm: 735770 TAKE ONE TABLET BY MOUTH DAILY 10/05/2015 12/31/2015 Inactive simvastatin 40 mg tablet RxNorm: 473928 1 Tablet(s) PO QHS 01/31/2016 Inactive hydrocodone 5 mg-acetaminophen 325 mg tablet RxNorm: 666739 1 to 2 Tablet(s) PO Q6 as needed 09/15/2015 09/22/2015 Inactive [SAVINGS FOR NON-COVERED DRUGS -- BIN: 708070, PCN: ASPROD1, Group: XXXXX, ID# [id number], Questions: . THIS IS NOT INSURANCE.] Valium 5 mg tablet RxNorm: 154010 Tablet(s) TAKE ONE TABLET BY MOUTH EVERY NIGHT AT BEDTIME 09/08/2015 11/05/2015 Inactive enalapril 5 mg-hydrochlorothiazide 12.5 mg tablet RxNorm: 255439 Tablet(s) TAKE ONE TABLET BY MOUTH DAILY 08/21/201512/17 Inactive diclofenac sodium 75 mg tablet,delayed release RxNorm: 826209 1 Tablet(s) PO BID 08/21/2015 12/18/2015 Inactive hydrocodone 5 mg-acetaminophen 325 mg tablet RxNorm: 613292 1 to 2 Tablet(s) PO Q6 as needed 08/13/2015 08/20/2015 Inactive [SAVINGS FOR NON-COVERED DRUGS -- BIN: 080946, PCN: ASPROD1, Group: XXXXX, ID# [id number], Questions: . THIS IS NOT INSURANCE.] clindamycin 300 mg capsule RxNorm: 756995 1 Capsule(s) PO TID 08/06/2015 08/10/2015 Inactive Claritin-D 24 Hour 10 mg-240 mg tablet,extended release RxNorm: 4927067 Tablet(s) TAKE ONE TABLET BY MOUTH DAILY 07/23/2015 10/20/2015 Inactive hydrocodone 5 mg-acetaminophen 325 mg tablet RxNorm: 278983 1 to 2 Tablet(s) PO Q6 as needed 07/23/2015 07/30/2015 Inactive [SAVINGS FOR NON-COVERED DRUGS -- BIN: 751982, PCN: ASPROD1, Group: XXXXX, ID# [id number], Questions: . THIS IS NOT INSURANCE.] Valium 5 mg tablet RxNorm: 586703 Tablet(s) TAKE ONE TABLET BY MOUTH EVERY NIGHT AT BEDTIME 07/22/2015 08/18/2015 Inactive Claritin-D 24 Hour 10 mg-240 mg tablet,extended release RxNorm: 5237369 TAKE ONE TABLET BY MOUTH DAILY 07/22/20152015 Inactive Claritin-D 24 Hour 10 mg-240 mg tablet,extended release RxNorm: 4504797 TAKE ONE TABLET BY MOUTH DAILY 07/20/20152015 Inactive Cymbalta 60 mg capsule,delayed release RxNorm: 684820 TAKE ONE CAPSULE BY MOUTH DAILY 07/20/2015 01/11/2016 Inactive cyclobenzaprine 10 mg tablet RxNorm: 656465 TAKE ONE TABLET BY MOUTH AT BEDTIME NEEDED 07/06/2015 08/04/2015 Inactive hydrocodone 5 mg-acetaminophen 325 mg tablet RxNorm: 753561 1 to 2 Tablet(s) PO Q6 as needed 06/23/2015 06/30/2015 Inactive [SAVINGS FOR NON-COVERED DRUGS -- BIN: 345248, PCN: ASPROD1, Group: XXXXX, ID# [id number], Questions: . THIS IS NOT INSURANCE.] Effexor 75 mg tablet RxNorm: 498157 1 Tablet(s) PO daily 201409/28/2015 Inactive Valium 5 mg tablet RxNorm: 414134 Tablet(s) TAKE ONE TABLET BY MOUTH EVERY NIGHT AT BEDTIME 05/22/2015 06/19/2015 Inactive hydrocodone 5 mg-acetaminophen 325 mg tablet RxNorm: 582274 1 to 2 Tablet(s) PO Q6 as needed 05/22/2015 05/29/2015 Inactive [SAVINGS FOR NON-COVERED DRUGS -- BIN: 397120, PCN: ASPROD1, Group: XXXXX, ID# [id number], Questions: . THIS IS NOT INSURANCE.] diclofenac sodium 75 mg tablet,delayed release RxNorm: 899474 1 Tablet(s) PO BID 05/04/2015 08/20/2015 Inactive Metanx (algal oil) 3 mg-35 mg-2 mg-90.314 mg capsule RxNorm: 1 Capsule(s) PO BID 05/04/2015 04/27/2016 Inactive enalapril 5 mg-hydrochlorothiazide 12.5 mg tablet RxNorm: 308511 TAKE ONE TABLET BY MOUTH DAILY 04/27/2015 08/20/2015 Inactive hydrocodone 5 mg-acetaminophen 325 mg tablet RxNorm: 433506 1 to 2 Tablet(s) PO Q6 as needed 04/27/2015 05/04/2015 Inactive [SAVINGS FOR NON-COVERED DRUGS -- BIN: 424361, PCN: ASPROD1, Group: XXXXX, ID# [id number], Questions: . THIS IS NOT INSURANCE.] hydrocodone 5 mg-acetaminophen 325 mg tablet RxNorm: 247939 1 to 2 Tablet(s) PO Q6 as needed 03/26/2015 04/02/2015 Inactive [SAVINGS FOR NON-COVERED DRUGS -- BIN: 848541, PCN: ASPROD1, Group: XXXXX, ID# [id number], Questions: . THIS IS NOT INSURANCE.] Claritin-D 24 Hour 10 mg-240 mg tablet,extended release RxNorm: 1931770 Tablet(s) TAKE ONE TABLET BY MOUTH DAILY 03/24/2015 07/19/2015 Inactive Valium 5 mg tablet RxNorm: 789821 TAKE ONE TABLET BY MOUTH EVERY NIGHT AT BEDTIME 03/05/2015 04/03/2015 Inactive Valium 5 mg tablet RxNorm: 225500 1 Tablet(s) PO daily as needed 03/05/2015 03/05/2015 Inactive [SAVINGS FOR NON-COVERED DRUGS -- BIN:615790, PCN: ASPROD1, Group : XXXXX, ID# [id number], Questions: . THIS IS NOT INSURANCE.] hydrocodone 5 mg-acetaminophen 325 mg tablet RxNorm: 459947 1 to 2 Tablet(s) PO Q6 as needed 02/18/2015 02/25/2015 Inactive [SAVINGS FOR NON-COVERED DRUGS -- BIN: 641939, PCN: ASPROD1, Group: XXXXX, ID# [id number], Questions: . THIS IS NOT INSURANCE.] enalapril 5 mg-hydrochlorothiazide 12.5 mg tablet RxNorm: 534349 1 Tablet(s) PO daily 01/30/2015 04/26/2015 Inactive hydrocodone 5 mg-acetaminophen 325 mg tablet RxNorm: 472161 1 to 2 Tablet(s) PO Q6 as needed 01/22/2015 01/29/2015 Inactive [SAVINGS FOR NON-COVERED DRUGS -- BIN: 699009, PCN: ASPROD1, Group: XXXXX, ID# [id number], Questions: . THIS IS NOT INSURANCE.] Claritin-D 24 Hour 10 mg-240 mg tablet,extended release RxNorm: 2890200 TAKE ONE TABLET BY MOUTH DAILY 01/15/20152014 Inactive Claritin-D 24 Hour 10 mg-240 mg tablet,extended release RxNorm: 5896882 Tablet(s) TAKE ONE TABLET BY MOUTH DAILY 01/15/2015 01/14/2015 Inactive cyclobenzaprine 10 mg tablet RxNorm: 014235 1 Tablet(s) PO QHS as needed 12/29/2014 01/27/2015 Inactive hydrocodone 5 mg-acetaminophen 325 mg tablet RxNorm: 691527 1 to 2 Tablet(s) PO Q6 as needed 12/23/2014 12/30/2014 Inactive [SAVINGS FOR NON-COVERED DRUGS -- BIN: 885585, PCN: ASPROD1, Group: XXXXX, ID# [id number], Questions: . THIS IS NOT INSURANCE.] Cymbalta 60 mg capsule,delayed release RxNorm: 483126 1 Capsule(s) PO daily 12/18/2014 07/15/2015 Inactive Claritin-D 24 Hour 10 mg-240 mg tablet,extended release RxNorm: 7930135 TAKE ONE TABLET BY MOUTH DAILY 12/15/20142014 Inactive Claritin-D 24 Hour 10 mg-240 mg tablet,extended release RxNorm: 0059868 TAKE ONE TABLET BY MOUTH DAILY 12/15/20142014 Inactive Claritin-D 24 Hour 10 mg-240 mg tablet,extended release RxNorm: 0418559 TAKE ONE TABLET BY MOUTH DAILY 12/15/20142014 Inactive Claritin-D 24 Hour 10 mg-240 mg tablet,extended release RxNorm: 9276831 1 Tablet(s ) PO daily 12/10/2014 12/14/2014 Inactive hydrocodone 5 mg-acetaminophen 325 mg tablet RxNorm: 698804 1 to 2 Tablet(s) PO Q6 as needed 12/08/2014 12/22/2014 Inactive [SAVINGS FOR NON-COVERED DRUGS -- BIN: 359751, PCN: ASPROD1, Group: XXXXX, ID# [id number], Questions: . THIS IS NOT INSURANCE.] hydrocodone 5 mg-acetaminophen 325 mg tablet RxNorm: 192807 1 to 2 Tablet(s) PO Q6 as needed 11/25/2014 12/07/2014 Inactive [SAVINGS FOR NON-COVERED DRUGS -- BIN: 908190, PCN: ASPROD1, Group: XXXXX, ID# [id number], Questions: . THIS IS NOT INSURANCE.] Claritin-D 24 Hour 10 mg-240 mg tablet,extended release RxNorm: 2063028 1 Tablet(s ) PO daily 11/07/2014 12/06/2014 Inactive Claritin-D 24 Hour 10 mg-240 mg tablet,extended release RxNorm: 3950832 1 Tablet(s ) PO daily 11/07/2014 11/06/2014 Inactive hydrocodone 5 mg-acetaminophen 325 mg tablet RxNorm: 847146 1 to 2 Tablet(s) PO Q6 as needed 11/03/2014 11/24/2014 Inactive [SAVINGS FOR NON-COVERED DRUGS -- BIN: 596548, PCN: ASPROD1, Group: XXXXX, ID# [id number], Questions: . THIS IS NOT INSURANCE.] Valium 5 mg tablet RxNorm: 862012 1 Tablet(s) PO daily as needed 10/23/2014 12/20/2014 Inactive [SAVINGS FOR NON-COVERED DRUGS -- BIN:248194, PCN: ASPROD1, Group : XXXXX, ID# [id number], Questions: . THIS IS NOT INSURANCE.] Cialis 5 mg tablet RxNorm: 869087 1/2 Tablet(s) PO daily No Stop Date Active [SAVINGS FOR NON-COVERED DRUGS -- BIN:083812, PCN: ASPROD1, Group: XXXXX, ID# [id number], Questions: . THIS IS NOT INSURANCE.] aspirin 81 mg tablet RxNorm: 400494 1 Tablet(s) PO daily No Start Date Active Effexor 75 mg tablet RxNorm: 102304 1 Tablet(s) PO daily No Start Date 05/31/2015 Inactive Valium 5 mg tablet RxNorm: 388683 1 Tablet(s) PO daily as needed No Start Date 10/22/2014 Inactive simvastatin 40 mg tablet RxNorm: 653857 1 Tablet(s) PO QHS No Start Date 10/04/2015 Inactive enalapril 5 mg-hydrochlorothiazide 12.5 mg tablet RxNorm: 016026 oral No Start Date 01/29/2015 Inactive cyclobenzaprine 10 mg tablet RxNorm: 088309 1 Tablet(s) PO as needed No Start Date 12/28/2014 Inactive Cymbalta 60 mg capsule,delayed release RxNorm: 052957 1 Capsule(s) PO daily No Start Date 12/17/2014 Inactive hydrocodone 5 mg-acetaminophen 325 mg tablet RxNorm: 367570 1 to 2 Tablet(s) PO Q6 as needed No Start Date 11/02/2014 Inactive diclofenac sodium 75 mg tablet,delayed release RxNorm: 859631 1 Tablet(s) PO BID No Start Date 2015 Inactive Cialis 5 mg tablet RxNorm: 673566 1 Tablet(s) PO daily No Start Date 10/12/2014 Inactive Medication Administered Medication Codes Instructions Start Date Status ceftriaxone 500 mg solution for injection RxNorm: 8202348 1Gram 03/16/2017 No longer Active Immunizations No [...] Antibody With Reflex For Hcv Antibody Verificat 861333 HEPATITIS C ANTIBODY NEGATIVE 07/19/2016 Lipid Ord30 CHOL 180 mg/dL 07/18/2016 Lipid Ord30 HDL 56.0 mg/dl 07/18/2016 Lipid Ord30 TRIG 153 mg/dL 07/18/2016 Lipid Ord30 LDL 93 mg/dL 07/18/2016 Lipid Ord30 C/HDL 3.2 Ratio 07/18/2016 Comp Metabolic Iky666 NA 136 mEq/L 07/18/2016 Comp Metabolic Omt519 K 4.3 mEq/L 07/18/2016 Comp Metabolic Zvz930 CL 100 mEq/L 07/18/2016 Comp Metabolic Yup988 CO2 30.0 mEq/L 07/18/2016 Comp Metabolic Nty645 ANION GAP 10 07/18/2016 Comp Metabolic Pqv739 GLUCOSE 104 mg/dL 07/18/2016 Comp Metabolic Mbg828 Creat 1.0 mg/dL 07/18/2016 Comp Metabolic Plh683 eGFR 81 ml/min/1.73m2 07/18/2016 Comp Metabolic Edh206 BUN 21 mg/dL 07/18/2016 Comp Metabolic Fmr576 B/C Ratio 20.8 Ratio 07/18/2016 Comp Metabolic Nck633 CALCIUM 9.5 mg/dL 07/18/2016 Comp Metabolic Lgx550 ALK PHOS 45 U/L 07/18/2016 Comp Metabolic Jrk087 AST(SGOT) 26 U/L 07/18/2016 Comp Metabolic Pgx364 ALT(SGPT) 52 U/L 07/18/2016 Comp Metabolic Czb104 BILI T 0.8 mg/dL 07/18/2016 Comp Metabolic Qip929 ALBUMIN 4.7 g/dL 07/18/2016 Comp Metabolic Zvh377 TPRO 6.9 g/dL 07/18/2016 Comp Metabolic Vfr425 GLOB 2.2 g/dL 07/18/2016 Comp Metabolic Csw349 A/G Ratio 2.2 Ratio 07/18/2016 Comp Metabolic Fbc964 Osmo 275 mOsmo 07/18/2016 Cbc With Differential [...] 94.0 fl 07/18/2016 Cbc With Differential Ord2 [place]% 11.2 % 07/18/2016 Cbc With Differential Ord2 [...] 0.69 K/ul 07/18/2016 Cbc With Differential Ord2 [place] ABS# 0.5 K/ul 07/18/2016 Cbc With Differential Ord2 Eos ABS# 0.2 K/ul 07/18/2016 Cbc With Differential Ord2 Baso ABS# 0.0 K/ul 07/18/2016 Tsh Ord6 hTSH II 1.99 uIU/mL 07/18/2016 Total Psa Ord10 PSA 0.75 ng/mL 07/18/2016 %Hba1C Tsd248 % HbA1c 29448-2 5.8 % 07/18/2016 %Hba1C Weo342 Gluc Ave 120 mg/dL 07/18/2016 Review of [...] Code : 8480-6 BMI: 32.4 Code : 26218-3 Heart Rate 1 : 80 bpm Height: 5'10" SpO2: 98% Weight: 226 lbs 03/20/2017 Blood Pressure 1: 134/72 Code : 8480-6 Heart Rate 1: 87 bpm Height: 5'10" SpO2: 97% 03/16/2017 Blood Pressure 1: 150/84 Code : 8480-6 BMI: 32.4 Code : 80655-3 Heart Rate 1 : 98 bpm Height: 5'10" SpO2: 97% Weight: 226 lbs 03/10/2017 Blood Pressure 1: 140/72 Code : 8480-6 BMI: 32.4 Code : 04679-4 Heart Rate 1 : 81 bpm Height: 5'10" SpO2: 97% Weight: 226 lbs 11/16/2016 Blood Pressure 1: 142/80 Code : 8480-6 BMI: 32.1 Code : 11368-0 Heart Rate 1 : 95 bpm Height: 5'10" SpO2: 98% Weight: 224 lbs 07/15/2016 Blood Pressure 1: 130/78 Code : 8480-6 BMI: 32.0 Code : 27551-8 Heart Rate 1 : 85 bpm Height: 5'10" SpO2: 95% Weight: 223 lbs 03/08/2016 Blood Pressure 1: 138/84 Code : 8480-6 BMI: 31.6 Code : 34818-7 Heart Rate 1 : 86 bpm Height: 5'10" SpO2: 98% Weight: 220 lbs 11/26/2015 Blood Pressure 1: 132/82 Code : 8480-6 BMI: 31.6 Code : 11395-1 Height: 5'10 " Weight: 220 lbs 08/06/2015 Blood Pressure 1: 138/74 Code : 8480-6 BMI: 31.0 Code : 21035-3 Heart Rate 1 : 87 bpm Height: 5'10" SpO2: 95% Weight: 216 lbs 05/04/2015 Blood Pressure 1: 128/80 Code : 8480-6 BMI: 33.6 Code : 04744-8 Heart Rate 1 : 94 bpm Height: 5'10" SpO2: 97% Weight: 234 lbs 11/06/2014 Blood Pressure 1: 132/92 Code : 8480-6 BMI: 31.1 Code : 24852-6 Heart Rate 1 : 88 bpm Height: [...] knee[ICD10: M17.0] [facility] CPT-4: 61217 10/20/2017 [id number] EST. PATIENT, LEVEL IV Diagnosis: Periapical abscess without sinus[ICD10: K04.7] Diagnosis: Cellulitis and abscess of mouth[ICD10: K12.2] [facility] CPT-4: 92335 03/20/2017 ([id number]) 40410 EST. PATIENT, LEVEL III Diagnosis: Periapical abscess without sinus[ICD10: K04.7] Diagnosis: Cellulitis and abscess of mouth[ICD10: K12.2] Mayte Mcfarlane MD, [facility] CPT-4: 18330 03/16/2017 ([id number]) 78525 EST. PATIENT, LEVEL III Diagnosis: Periapical abscess without sinus[ICD10: K04.7] Niya Mcfarlane MD, [facility] CPT-4: 08614 03/10/2017 ([id number]) 06446 EST. PATIENT, LEVEL IV Diagnosis: Essential (primary) hypertension[ICD10: I10] Diagnosis: Low back pain[ICD10: M54.5] Mayte Mcfarlane MD, [facility] CPT- 4: 41263 11/16/2016 ([id number]) 95887 EST. PATIENT, LEVEL IV Diagnosis: Mixed hyperlipidemia[ICD10: E78.2] Diagnosis: Essential (primary) hypertension[ICD10: I10] Diagnosis: Impaired fasting glucose[ICD10: R73.01] Diagnosis: Encounter for screening for malignant neoplasm of prostate[ICD10: Z12.5] Diagnosis: Encounter for screening for other viral diseases[ICD10: Z11.59] Diagnosis: Drug induced constipation[ICD10: K59.03] Niya Mcfarlane MD, [facility] CPT-4: 94412 07/15/2016 ([id number]) 92029 EST. PATIENT, LEVEL III Diagnosis: Bilateral primary osteoarthritis of knee[ICD10: M17.0] Niya Mcfarlane MD, [facility] CPT-4: 83040 03/08/2016 ([id number]) 67529 EST. PATIENT, LEVEL III Diagnosis: Bilateral primary osteoarthritis of knee[ICD10: M17.0] Niya Mcfarlane MD, [facility] CPT-4: 04491 11/26/2015 [id number] EST. PATIENT, LEVEL IV Diagnosis: Cervicalgia[ICD10: M54.2] Diagnosis: Other specified polyneuropathies[ICD10: G62.89] Diagnosis: Dental caries, unspecified[ICD10: K02.9] Diagnosis: Major depressive disorder, single episode, unspecified[ICD10: F32.9] Niya Mcfarlane MD, [facility] CPT-4: 85166 08/06/2015 ([id number]) 38146 EST. PATIENT, LEVEL IV Diagnosis: Mixed hyperlipidemia[ICD10: E78.2] Diagnosis: Idiopathic gout, unspecified ankle and foot[ICD10: M10.079] Diagnosis: Other specified polyneuropathies[ICD10: G62.89] Diagnosis: Morbid (severe) obesity due to excess calories[ICD10: E66.01] [facility] CPT-4: 80586 05/04/2015 ([id number]) OFFICE VISIT, NEW - LEVEL 4 Diagnosis: GOUT[ICD9: 274.9] Diagnosis: Sinusitis, acute[ICD9: 461.9] Diagnosis: HYPERLIPIDEMIA[ICD9: 272.4] [facility] CPT- 4: 27177 11/06/2014 Plan of Care Planned Activity Notes Codes Status Date Visit Plan: OA knees - pt has chronic pain - has been maintained on current medications, has not sought out other medications, only uses PRN pain medications as directed, and understands the consequences of over- medication. 10/20/2017 Appointment: Julianna Stanford WPtel: [facility] (30 min) Complex 10/20/2017 Patient Education: Patient Medication Summary Completed 10/20/2017 Appointment: Julianna Stanford WPtel: [address] [place], [place] [phone] (15 min) Moderate 10/19/2017 Visit Plan: Cellulitis/Abscess - continue with current treatment course - restart keflex as patient had improvement of symptoms on the rocephin. continue with clindamycin and increase probiotic to tid dosing. Keep follow up appointment with Dr. Hendrix on 03/28. Notify clinic with any changes or concerns, or with any questions. 03/20/2017 Appointment: Julianna Stanford WPtel: [facility] (30 min) Complex 03/20/2017 Patient Education: [...] 03/16/2017 Appointment: Mayte Mcfarlane WPtel: [facility] (15 min) Moderate 03/16/2017 Patient Education: [...] plan. 03/10/2017 Appointment: Niya Bryant WPtel: [phone] [place] [address] (15 min) Moderate 03/10/2017 Patient Education: Patient [...] 11/16/2016 Appointment: Mayte Mcfarlane WPtel: [facility] (15 min) Moderate 11/16/2016 Patient Education: [...] a1c 07/15/2016 Appointment: Niya Bryant WPtel: [phone] [phone] (15 min) Moderate 07/15/2016 Patient Education: [...] medication. 03/08/2016 Appointment: Ni[facility] Bryant WPtel[phone] (30 min) Complex 03/08/2016 Patient Education: [...] plan. 11/26/2015 Appointment: Niya Bryant WPtel: [phone] [phone] (30 min) Complex 11/26/2015 Patient Education: [...] medications. 11/06/2014 App[facility]ment[phone] [place] [facility] New Patient 11/06/2014 Patient [...]
--- OUTSIDE RECORDS SUMMARY | 2018-07-11 13:12 | XMS REPORT | CCD ---
Author Author [facility] Organization [facility] Address [address] [place] [address] Phone Care Team Providers Care Limnology Teacher Name Role Phone PP Unavailable CCM Unavailable Summary Purpose Interface Exchange Insurance Providers Payer name Policy type / Coverage type Covered democrat ID Effective Begin Date Effective End Date Blue Cross Blue [facility] Blue Cross/Blue Shield [id number] Unknown Unknown Family history Father Diagnosis Age At Onset Cancer Unknown Stroke Unknown Heart Attack Unknown Hyperlipidemia Unknown Diabetes mellitus Type 2 Unknown Arthritis Unknown Heart disease Unknown Mother Diagnosis Age At Onset Arthritis Unknown Hypertension Unknown Breast cancer Unknown Sister Diagnosis Age At Onset Multiple sclerosis Unknown Social History Social History Element Codes Description Effective Dates Employment Unknown 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 Number of children Unknown 3 one daughter lives locally, other children live in [place] - 05/04/2015 Marital status Unknown Danielle 11/06/[address]: 292238695 Has never smoked or chewed tobacco 11/06/2014 Alcohol history Unknown occasionally drinks alcohol 11/06/2014 Allergies, Adverse Reactions, Alerts Allergies, Adverse Reactions, Alerts data not found Past Medical History Illness Codes Condition Status Onset Date Resolved Date Cellulitis and abscess of mouth ICD-9: 528.3 [...] ICD-9: 715.96 ICD-10: M17.0 Active 03/07/2016 Unknown Depression Unknown Active 08/06/2015 Unknown Cervicalgia [...] Problems Condition Codes Effective Dates Condition Status Cellulitis and abscess of mouth ICD-9: 528.3 [...] knee ICD-9: 715.96 ICD-10: M17.0 03/07/2016 Active Depression Unknown 08/06/2015 Active Cervicalgia ICD-9: [...] enalapril 5 mg-hydrochlorothiazide 12.5 mg tablet RxNorm: 559813 TAKE ONE TABLET BY MOUTH DAILY 07/03/2017 12/29/2017 Active hydrocodone 10 mg-acetaminophen 325 mg tablet RxNorm: 408789 1 Tablet(s) PO QID as needed tooth abscess pain or back pain 06/23/2017 07/22/2017 Active hydrocodone 10 mg-acetaminophen 325 mg tablet RxNorm: 435810 1 Tablet(s) PO QID as needed tooth abscess pain or back pain 05/31/2017 06/22/2017 Inactive diclofenac sodium 75 mg tablet,delayed release RxNorm: 725782 TAKE ONE TABLET BY MOUTH TWICE A DAY 05/29/2017 09/25/2017 Active Valium 5 mg tablet RxNorm: 545991 Tablet(s) TAKE ONE TABLET BY MOUTH EVERY NIGHT AT BEDTIME 05/16/2017 06/14/2017 Inactive Cymbalta 60 mg capsule,delayed release RxNorm: 469705 TAKE ONE CAPSULE BY MOUTH DAILY 05/15/2017 09/11/2017 Active hydrocodone 10 mg-acetaminophen 325 mg tablet RxNorm: 514412 1 Tablet(s) PO QID as needed tooth abscess pain or back pain 2017 05/30/2017 Inactive Claritin-D 24 Hour 10 mg-240 mg tablet,extended release RxNorm: 8317129 Tablet(s) TAKE ONE TABLET BY MOUTH DAILY 04/19/2017 07/17/2017 Active hydrocodone 5 mg-acetaminophen 325 mg tablet RxNorm: 215342 1-2 Tablet(s) PO Q6 as needed 04/18/2017 05/02/2017 Inactive Effexor 75 mg tablet RxNorm: 431769 TAKE ONE TABLET BY MOUTH DAILY 04/13/2017 10/09/2017 Active Keflex 500 mg capsule RxNorm: 208479 1 Capsule(s) PO TID 201603/26/2017 Inactive clindamycin 300 mg capsule RxNorm: 241903 1 Capsule(s) PO TID 03/20/2017 03/26/2017 Inactive ceftriaxone 500 mg solution for injection RxNorm: 9709357 1 Gram(s) Inj 03/16/2017 03/16/2017 Inactive clindamycin 300 mg capsule RxNorm: 878794 1 Capsule(s) PO TID 03/16/2017 03/19/2017 Inactive hydrocodone 5 mg-acetaminophen 325 mg tablet RxNorm: 384403 1-2 Tablet(s) PO Q6 as needed 03/16/2017 03/16/2017 Inactive Keflex 500 mg capsule RxNorm: 960986 1 Capsule(s) PO TID 201603/19/2017 Inactive hydrocodone 10 mg-acetaminophen 325 mg tablet RxNorm: 048284 1 Tablet(s) PO QID as needed tooth abscess pain or back pain 03/16/2017 04/14/2017 Inactive simvastatin 40 mg tablet RxNorm: 861857 TAKE ONE TABLET BY MOUTH EVERY NIGHT AT BEDTIME 03/13/2017 09/08/2017 Active clindamycin 300 mg capsule RxNorm: 155633 1 Capsule(s) PO TID 03/10/2017 03/15/2017 Inactive hydrocodone 5 mg-acetaminophen 325 mg tablet RxNorm: 096597 1-2 Tablet(s) PO Q6 as needed 03/03/2017 03/15/2017 Inactive hydrocodone 5 mg-acetaminophen 325 mg tablet RxNorm: 887027 1 to 2 Tablet(s) PO Q6 as needed 02/15/2017 02/25/2017 Inactive hydrocodone 5 mg-acetaminophen 325 mg tablet RxNorm: 416058 1 to 2 Tablet(s) PO Q6 as needed 02/02/2017 02/12/2017 Inactive enalapril 5 mg-hydrochlorothiazide 12.5 mg tablet RxNorm: 509755 TAKE ONE TABLET BY MOUTH DAILY 01/23/2017 06/21/2017 Inactive diclofenac sodium 75 mg tablet,delayed release RxNorm: 396090 TAKE ONE TABLET BY MOUTH TWICE A DAY 01/23/2017 05/22/2017 Inactive hydrocodone 5 mg-acetaminophen 325 mg tablet RxNorm: 362728 1 to 2 Tablet(s) PO Q6 as needed 01/12/2017 01/22/2017 Inactive hydrocodone 5 mg-acetaminophen 325 mg tablet RxNorm: 400945 1 to 2 Tablet(s) PO Q6 as needed 12/29/2016 01/08/2017 Inactive hydrocodone 5 mg-acetaminophen 325 mg tablet RxNorm: 360857 1 to 2 Tablet(s) PO Q6 as needed 12/16/2016 12/26/2016 Inactive Cymbalta 60 mg capsule,delayed release RxNorm: 052710 TAKE ONE CAPSULE BY MOUTH DAILY 12/14/2016 05/12/2017 Inactive hydrocodone 5 mg-acetaminophen 325 mg tablet RxNorm: 177857 1 to 2 Tablet(s) PO Q6 as needed 11/30/2016 12/10/2016 Inactive Voltaren 1 % topical gel RxNorm: 909766 2 Gram(s) TOP QID bilateral SI joints 11/16/2016 01/14/2017 Inactive diclofenac sodium 75 mg tablet,delayed release RxNorm: 816275 TAKE ONE TABLET BY MOUTH TWICE A DAY 10/31/2016 01/22/2017 Inactive hydrocodone 5 mg-acetaminophen 325 mg tablet RxNorm: 899489 1 to 2 Tablet(s) PO Q6 as needed 10/27/2016 11/06/2016 Inactive hydrocodone 5 mg-acetaminophen 325 mg tablet RxNorm: 873624 1 to 2 Tablet(s) PO Q6 as needed 10/05/2016 10/15/2016 Inactive Effexor 75 mg tablet RxNorm: 366769 TAKE ONE TABLET BY MOUTH DAILY 10/03/2016 03/31/2017 Inactive Claritin-D 24 Hour 10 mg-240 mg tablet,extended release RxNorm: 4079521 Tablet(s) TAKE ONE TABLET BY MOUTH DAILY 09/26/2016 12/24/2016 Inactive hydrocodone 5 mg-acetaminophen 325 mg tablet RxNorm: 323390 1 to 2 Tablet(s) PO Q6 as needed 09/09/2016 09/19/2016 Inactive hydrocodone 5 mg-acetaminophen 325 mg tablet RxNorm: 551851 1 to 2 Tablet(s) PO Q6 as needed 08/19/2016 08/29/2016 Inactive hydrocodone 5 mg-acetaminophen 325 mg tablet RxNorm: 113331 1 to 2 Tablet(s) PO Q6 as needed 08/01/2016 08/11/2016 Inactive enalapril 5 mg-hydrochlorothiazide 12.5 mg tablet RxNorm: 361433 Tablet(s) TAKE ONE TABLET BY MOUTH DAILY 07/18/201601/13 Inactive Movantik 25 mg tablet RxNorm: 4060092 1 Tablet(s) PO QAM 2016 No Stop Date Active hydrocodone 5 mg-acetaminophen 325 mg tablet RxNorm: 398063 1 to 2 Tablet(s) PO Q6 as needed 07/15/2016 07/25/2016 Inactive diclofenac sodium 75 mg tablet,delayed release RxNorm: 374306 TAKE ONE TABLET BY MOUTH TWICE A DAY 06/27/2016 10/24/2016 Inactive hydrocodone 5 mg-acetaminophen 325 mg tablet RxNorm: 254860 1 to 2 Tablet(s) PO Q6 as needed 06/16/2016 06/26/2016 Inactive Claritin-D 24 Hour 10 mg-240 mg tablet,extended release RxNorm: 5929859 Tablet(s) TAKE ONE TABLET BY MOUTH DAILY 06/10/2016 08/08/2016 Inactive Metanx (algal oil) 3 mg-35 mg-2 mg-90.314 mg capsule RxNorm: Capsule(s) TAKE ONE CAPSULE BY MOUTH TWO TIMES DAILY 06/02/2016 05/27/2017 Inactive hydrocodone 5 mg-acetaminophen 325 mg tablet RxNorm: 914900 1 to 2 Tablet(s) PO Q6 as needed 05/27/2016 06/06/2016 Inactive Valium 5 mg tablet RxNorm: 593539 Tablet(s) TAKE ONE TABLET BY MOUTH EVERY NIGHT AT BEDTIME 05/16/2016 07/14/2016 Inactive Metanx (algal oil) 3 mg-35 mg-2 mg-90.314 mg capsule RxNorm: TAKE ONE CAPSULE BY MOUTH TWO TIMES DAILY 05/11/20162015 Inactive hydrocodone 5 mg-acetaminophen 325 mg tablet RxNorm: 496463 1 to 2 Tablet(s) PO Q6 as needed 04/25/2016 05/02/2016 Inactive [SAVINGS FOR NON-COVERED DRUGS -- BIN: [id number], PCN: ASPROD1, Group: XXXXX, ID# [email or web address], Questions: . THIS IS NOT INSURANCE.] hydrocodone 5 mg-acetaminophen 325 mg tablet RxNorm: 415102 1 to 2 Tablet(s) PO Q6 as needed 04/01/2016 04/08/2016 Inactive [SAVINGS FOR NON-COVERED DRUGS -- BIN: 431616, PCN: ASPROD1, Group: XXXXX, ID# [email or web address], Questions: . THIS IS NOT INSURANCE.] diclofenac sodium 75 mg tablet,delayed release RxNorm: 858695 TAKE ONE TABLET BY MOUTH TWICE A DAY 03/21/2016 06/18/2016 Inactive enalapril 5 mg-hydrochlorothiazide 12.5 mg tablet RxNorm: 348858 TAKE ONE TABLET BY MOUTH DAILY 03/21/2016 07/17/2016 Inactive Claritin-D 24 Hour 10 mg-240 mg tablet,extended release RxNorm: 6877835 Tablet(s) TAKE ONE TABLET BY MOUTH DAILY 03/11/2016 06/08/2016 Inactive hydrocodone 5 mg-acetaminophen 325 mg tablet RxNorm: 269163 1 to 2 Tablet(s) PO Q6 as needed 03/08/2016 03/15/2016 Inactive [SAVINGS FOR NON-COVERED DRUGS -- BIN: [id number], PCN: ASPROD1, Group: XXXXX, ID# [id number], Questions: . THIS IS NOT INSURANCE.] simvastatin 40 mg tablet RxNorm: 362853 1 Tablet(s) PO QHS 10/03/2016 Inactive Effexor 75 mg tablet RxNorm: 140445 Tablet(s) TAKE ONE TABLET BY MOUTH DAILY 03/08/2016 10/02/2016 Inactive simvastatin 40 mg tablet RxNorm: 136414 TAKE ONE TABLET BY MOUTH EVERY NIGHT AT BEDTIME 02/05/2016 05/04/2016 Inactive Request already responded to by other means (e.g. phone or fax) hydrocodone 5 mg-acetaminophen 325 mg tablet RxNorm: 089276 1 to 2 Tablet(s) PO Q6 as needed 02/02/2016 02/09/2016 Inactive [SAVINGS FOR NON-COVERED DRUGS -- BIN: 048798, PCN: ASPROD1, Group: XXXXX, ID# [id number], Questions: . THIS IS NOT INSURANCE.] simvastatin 40 mg tablet RxNorm: 126878 1 Tablet(s) PO QHS 03/07/2016 Inactive Cymbalta 60 mg capsule,delayed release RxNorm: 283824 TAKE ONE CAPSULE BY MOUTH DAILY 01/14/2016 06/11/2016 Inactive Request already responded to by other means ( e.g. phone or fax) Claritin-D 24 Hour 10 mg-240 mg tablet,extended release RxNorm: 9047929 Tablet(s) TAKE ONE TABLET BY MOUTH DAILY 01/14/2016 02/12/2016 Inactive hydrocodone 5 mg-acetaminophen 325 mg tablet RxNorm: 981303 1 to 2 Tablet(s) PO Q6 as needed 01/14/2016 01/21/2016 Inactive [SAVINGS FOR NON-COVERED DRUGS -- BIN: 079964, PCN: ASPROD1, Group: XXXXX, ID# [id number], Questions: . THIS IS NOT INSURANCE.] Claritin-D 24 Hour 10 mg-240 mg tablet,extended release RxNorm: 4116935 TAKE ONE TABLET BY MOUTH DAILY 01/14/20162015 Inactive Cymbalta 60 mg capsule,delayed release RxNorm: 724613 Capsule(s) TAKE ONE CAPSULE BY MOUTH DAILY 01/12/2016 01/13/2016 Inactive Claritin-D 24 Hour 10 mg-240 mg tablet,extended release RxNorm: 7769295 TAKE ONE TABLET BY MOUTH DAILY 01/11/20162015 Inactive Claritin-D 24 Hour 10 mg-240 mg tablet,extended release RxNorm: 4451090 TAKE ONE TABLET BY MOUTH DAILY 01/11/20162015 Inactive Claritin-D 24 Hour 10 mg-240 mg tablet,extended release RxNorm: 6433908 TAKE ONE TABLET BY MOUTH DAILY 01/07/20162015 Inactive Effexor 75 mg tablet RxNorm: 525954 TAKE ONE TABLET BY MOUTH DAILY 01/01/2016 02/29/2016 Inactive diclofenac sodium 75 mg tablet,delayed release RxNorm: 610075 TAKE ONE TABLET BY MOUTH TWICE A DAY 12/23/2015 03/20/2016 Inactive enalapril 5 mg-hydrochlorothiazide 12.5 mg tablet RxNorm: 185346 TAKE ONE TABLET BY MOUTH DAILY 12/23/2015 03/20/2016 Inactive hydrocodone 5 mg-acetaminophen 325 mg tablet RxNorm: 034806 1 to 2 Tablet(s) PO Q6 as needed 12/22/2015 12/29/2015 Inactive [SAVINGS FOR NON-COVERED DRUGS -- BIN: 765375, PCN: ASPROD1, Group: XXXXX, ID# [id number], Questions: . THIS IS NOT INSURANCE.] Valium 5 mg tablet RxNorm: 507869 Tablet(s) TAKE ONE TABLET BY MOUTH EVERY NIGHT AT BEDTIME 12/01/2015 01/28/2016 Inactive hydrocodone 5 mg-acetaminophen 325 mg tablet RxNorm: 947062 1 to 2 Tablet(s) PO Q6 as needed 11/30/2015 12/07/2015 Inactive [SAVINGS FOR NON-COVERED DRUGS -- BIN: 848123, PCN: ASPROD1, Group: XXXXX, ID# [id number], Questions: . THIS IS NOT INSURANCE.] hydrocodone 5 mg-acetaminophen 325 mg tablet RxNorm: 910647 1 to 2 Tablet(s) PO Q6 as needed 11/09/2015 11/16/2015 Inactive [SAVINGS FOR NON-COVERED DRUGS -- BIN: 267444, PCN: ASPROD1, Group: XXXXX, ID# [id number], Questions: . THIS IS NOT INSURANCE.] Claritin-D 24 Hour 10 mg-240 mg tablet,extended release RxNorm: 0600398 Tablet(s) TAKE ONE TABLET BY MOUTH DAILY 11/05/2015 11/04/2015 Inactive Claritin-D 24 Hour 10 mg-240 mg tablet,extended release RxNorm: 3516417 Tablet(s) TAKE ONE TABLET BY MOUTH DAILY 11/05/2015 01/06/2016 Inactive Claritin-D 24 Hour 10 mg-240 mg tablet,extended release RxNorm: 8740589 Tablet(s) TAKE ONE TABLET BY MOUTH DAILY 10/30/2015 03/10/2016 Inactive hydrocodone 5 mg-acetaminophen 325 mg tablet RxNorm: 603754 1 to 2 Tablet(s) PO Q6 as needed 10/09/2015 10/16/2015 Inactive [SAVINGS FOR NON-COVERED DRUGS -- BIN: [id number], PCN: ASPROD1, Group: XXXXX, ID# [id number], Questions: . THIS IS NOT INSURANCE.] Effexor 75 mg tablet RxNorm: 258375 TAKE ONE TABLET BY MOUTH DAILY 10/05/2015 12/31/2015 Inactive simvastatin 40 mg tablet RxNorm: 431987 1 Tablet(s) PO QHS 01/31/2016 Inactive hydrocodone 5 mg-acetaminophen 325 mg tablet RxNorm: 545081 1 to 2 Tablet(s) PO Q6 as needed 09/15/2015 09/22/2015 Inactive [SAVINGS FOR NON-COVERED DRUGS -- BIN: 213765, PCN: ASPROD1, Group: XXXXX, ID# [id number], Questions: . THIS IS NOT INSURANCE.] Valium 5 mg tablet RxNorm: 249519 Tablet(s) TAKE ONE TABLET BY MOUTH EVERY NIGHT AT BEDTIME 09/08/2015 11/05/2015 Inactive enalapril 5 mg-hydrochlorothiazide 12.5 mg tablet RxNorm: 330032 Tablet(s) TAKE ONE TABLET BY MOUTH DAILY 08/21/201512/17 Inactive diclofenac sodium 75 mg tablet,delayed release RxNorm: 831838 1 Tablet(s) PO BID 08/21/2015 12/18/2015 Inactive hydrocodone 5 mg-acetaminophen 325 mg tablet RxNorm: 916272 1 to 2 Tablet(s) PO Q6 as needed 08/13/2015 08/20/2015 Inactive [SAVINGS FOR NON-COVERED DRUGS -- BIN: 884059, PCN: ASPROD1, Group: XXXXX, ID# [id number], Questions: . THIS IS NOT INSURANCE.] clindamycin 300 mg capsule RxNorm: 045766 1 Capsule(s) PO TID 08/06/2015 08/10/2015 Inactive Claritin-D 24 Hour 10 mg-240 mg tablet,extended release RxNorm: 1003544 Tablet(s) TAKE ONE TABLET BY MOUTH DAILY 07/23/2015 10/20/2015 Inactive hydrocodone 5 mg-acetaminophen 325 mg tablet RxNorm: 813936 1 to 2 Tablet(s) PO Q6 as needed 07/23/2015 07/30/2015 Inactive [SAVINGS FOR NON-COVERED DRUGS -- BIN: 512789, PCN: ASPROD1, Group: XXXXX, ID# [id number], Questions: . THIS IS NOT INSURANCE.] Valium 5 mg tablet RxNorm: 693972 Tablet(s) TAKE ONE TABLET BY MOUTH EVERY NIGHT AT BEDTIME 07/22/2015 08/18/2015 Inactive Claritin-D 24 Hour 10 mg-240 mg tablet,extended release RxNorm: 9402509 TAKE ONE TABLET BY MOUTH DAILY 07/22/20152015 Inactive Claritin-D 24 Hour 10 mg-240 mg tablet,extended release RxNorm: 0925473 TAKE ONE TABLET BY MOUTH DAILY 07/20/20152015 Inactive Cymbalta 60 mg capsule,delayed release RxNorm: 316537 TAKE ONE CAPSULE BY MOUTH DAILY 07/20/2015 01/11/2016 Inactive cyclobenzaprine 10 mg tablet RxNorm: 999523 TAKE ONE TABLET BY MOUTH AT BEDTIME NEEDED 07/06/2015 08/04/2015 Inactive hydrocodone 5 mg-acetaminophen 325 mg tablet RxNorm: 038132 1 to 2 Tablet(s) PO Q6 as needed 06/23/2015 06/30/2015 Inactive [SAVINGS FOR NON-COVERED DRUGS -- BIN: 430178, PCN: ASPROD1, Group: XXXXX, ID# [id number], Questions: . THIS IS NOT INSURANCE.] Effexor 75 mg tablet RxNorm: 414122 1 Tablet(s) PO daily 201409/28/2015 Inactive Valium 5 mg tablet RxNorm: 543240 Tablet(s) TAKE ONE TABLET BY MOUTH EVERY NIGHT AT BEDTIME 05/22/2015 06/19/2015 Inactive hydrocodone 5 mg-acetaminophen 325 mg tablet RxNorm: 308787 1 to 2 Tablet(s) PO Q6 as needed 05/22/2015 05/29/2015 Inactive [SAVINGS FOR NON-COVERED DRUGS -- BIN: 406578, PCN: ASPROD1, Group: XXXXX, ID# [id number], Questions: . THIS IS NOT INSURANCE.] diclofenac sodium 75 mg tablet,delayed release RxNorm: 911933 1 Tablet(s) PO BID 05/04/2015 08/20/2015 Inactive Metanx (algal oil) 3 mg-35 mg-2 mg-90.314 mg capsule RxNorm: 1 Capsule(s) PO BID 05/04/2015 04/27/2016 Inactive enalapril 5 mg-hydrochlorothiazide 12.5 mg tablet RxNorm: 457234 TAKE ONE TABLET BY MOUTH DAILY 04/27/2015 08/20/2015 Inactive hydrocodone 5 mg-acetaminophen 325 mg tablet RxNorm: 934490 1 to 2 Tablet(s) PO Q6 as needed 04/27/2015 05/04/2015 Inactive [SAVINGS FOR NON-COVERED DRUGS -- BIN: 040331, PCN: ASPROD1, Group: XXXXX, ID# XXXXXXX, Questions: . THIS IS NOT INSURANCE.] hydrocodone 5 mg-acetaminophen 325 mg tablet RxNorm: 762351 1 to 2 Tablet(s) PO Q6 as needed 03/26/2015 04/02/2015 Inactive [SAVINGS FOR NON-COVERED DRUGS -- BIN: 630711, PCN: ASPROD1, Group: XXXXX, ID# [id number], Questions: . THIS IS NOT INSURANCE.] Claritin-D 24 Hour 10 mg-240 mg tablet,extended release RxNorm: 1238690 Tablet(s) TAKE ONE TABLET BY MOUTH DAILY 03/24/2015 07/19/2015 Inactive Valium 5 mg tablet RxNorm: 774053 TAKE ONE TABLET BY MOUTH EVERY NIGHT AT BEDTIME 03/05/2015 04/03/2015 Inactive Valium 5 mg tablet RxNorm: 753750 1 Tablet(s) PO daily as needed 03/05/2015 03/05/2015 Inactive [SAVINGS FOR NON-COVERED DRUGS -- BIN:372822, PCN: ASPROD1, Group : XXXXX, ID# XXXXXXX, Questions: . THIS IS NOT INSURANCE.] hydrocodone 5 mg-acetaminophen 325 mg tablet RxNorm: 656708 1 to 2 Tablet(s) PO Q6 as needed 02/18/2015 02/25/2015 Inactive [SAVINGS FOR NON-COVERED DRUGS -- BIN: 891955, PCN: ASPROD1, Group: XXXXX, ID# XXXXXXX, Questions: . THIS IS NOT INSURANCE.] enalapril 5 mg-hydrochlorothiazide 12.5 mg tablet RxNorm: 418344 1 Tablet(s) PO daily 01/30/2015 04/26/2015 Inactive hydrocodone 5 mg-acetaminophen 325 mg tablet RxNorm: 458136 1 to 2 Tablet(s) PO Q6 as needed 01/22/2015 01/29/2015 Inactive [SAVINGS FOR NON-COVERED DRUGS -- BIN: 595217, PCN: ASPROD1, Group: XXXXX, ID# [email or web address], Questions: . THIS IS NOT INSURANCE.] Claritin-D 24 Hour 10 mg-240 mg tablet,extended release RxNorm: 7381935 TAKE ONE TABLET BY MOUTH DAILY 01/15/20152014 Inactive Claritin-D 24 Hour 10 mg-240 mg tablet,extended release RxNorm: 4870197 Tablet(s) TAKE ONE TABLET BY MOUTH DAILY 01/15/2015 01/14/2015 Inactive cyclobenzaprine 10 mg tablet RxNorm: 368798 1 Tablet(s) PO QHS as needed 12/29/2014 01/27/2015 Inactive hydrocodone 5 mg-acetaminophen 325 mg tablet RxNorm: 476968 1 to 2 Tablet(s) PO Q6 as needed 12/23/2014 12/30/2014 Inactive [SAVINGS FOR NON-COVERED DRUGS -- BIN: 565768, PCN: ASPROD1, Group: XXXXX, ID# [id number], Questions: . THIS IS NOT INSURANCE.] Cymbalta 60 mg capsule,delayed release RxNorm: 231915 1 Capsule(s) PO daily 12/18/2014 07/15/2015 Inactive Claritin-D 24 Hour 10 mg-240 mg tablet,extended release RxNorm: 8996806 TAKE ONE TABLET BY MOUTH DAILY 12/15/20142014 Inactive Claritin-D 24 Hour 10 mg-240 mg tablet,extended release RxNorm: 1851217 TAKE ONE TABLET BY MOUTH DAILY 12/15/20142014 Inactive Claritin-D 24 Hour 10 mg-240 mg tablet,extended release RxNorm: 9988063 TAKE ONE TABLET BY MOUTH DAILY 12/15/20142014 Inactive Claritin-D 24 Hour 10 mg-240 mg tablet,extended release RxNorm: 9826166 1 Tablet(s ) PO daily 12/10/2014 12/14/2014 Inactive hydrocodone 5 mg-acetaminophen 325 mg tablet RxNorm: 570493 1 to 2 Tablet(s) PO Q6 as needed 12/08/2014 12/22/2014 Inactive [SAVINGS FOR NON-COVERED DRUGS -- BIN: 293695, PCN: ASPROD1, Group: XXXXX, ID# XXXXXXX, Questions: . THIS IS NOT INSURANCE.] hydrocodone 5 mg-acetaminophen 325 mg tablet RxNorm: 555838 1 to 2 Tablet(s) PO Q6 as needed 11/25/2014 12/07/2014 Inactive [SAVINGS FOR NON-COVERED DRUGS -- BIN: 661319, PCN: ASPROD1, Group: XXXXX, ID# [id number], Questions: . THIS IS NOT INSURANCE.] Claritin-D 24 Hour 10 mg-240 mg tablet,extended release RxNorm: 6814345 1 Tablet(s ) PO daily 11/07/2014 12/06/2014 Inactive Claritin-D 24 Hour 10 mg-240 mg tablet,extended release RxNorm: 3847017 1 Tablet(s ) PO daily 11/07/2014 11/06/2014 Inactive hydrocodone 5 mg-acetaminophen 325 mg tablet RxNorm: 355818 1 to 2 Tablet(s) PO Q6 as needed 11/03/2014 11/24/2014 Inactive [SAVINGS FOR NON-COVERED DRUGS -- BIN: 657332, PCN: ASPROD1, Group: XXXXX, ID# XXXXXXX, Questions: . THIS IS NOT INSURANCE.] Valium 5 mg tablet RxNorm: 719452 1 Tablet(s) PO daily as needed 10/23/2014 12/20/2014 Inactive [SAVINGS FOR NON-COVERED DRUGS -- BIN:719492, PCN: ASPROD1, Group : XXXXX, ID# [id number], Questions: . THIS IS NOT INSURANCE.] Cialis 5 mg tablet RxNorm: 223861 1/2 Tablet(s) PO daily No Stop Date Active [SAVINGS FOR NON-COVERED DRUGS -- BIN:305119, PCN: ASPROD1, Group: XXXXX, ID# [id number], Questions: . THIS IS NOT INSURANCE.] aspirin 81 mg tablet RxNorm: 802428 1 Tablet(s) PO daily No Start Date Active Effexor 75 mg tablet RxNorm: 362583 1 Tablet(s) PO daily No Start Date 05/31/2015 Inactive Valium 5 mg tablet RxNorm: 441096 1 Tablet(s) PO daily as needed No Start Date 10/22/2014 Inactive simvastatin 40 mg tablet RxNorm: 196868 1 Tablet(s) PO QHS No Start Date 10/04/2015 Inactive enalapril 5 mg-hydrochlorothiazide 12.5 mg tablet RxNorm: 652471 oral No Start Date 01/29/2015 Inactive cyclobenzaprine 10 mg tablet RxNorm: 870578 1 Tablet(s) PO as needed No Start Date 12/28/2014 Inactive Cymbalta 60 mg capsule,delayed release RxNorm: 822919 1 Capsule(s) PO daily No Start Date 12/17/2014 Inactive hydrocodone 5 mg-acetaminophen 325 mg tablet RxNorm: 308376 1 to 2 Tablet(s) PO Q6 as needed No Start Date 11/02/2014 Inactive diclofenac sodium 75 mg tablet,delayed release RxNorm: 695095 1 Tablet(s) PO BID No Start Date 2015 Inactive Cialis 5 mg tablet RxNorm: 464406 1 Tablet(s) PO daily No Start Date 10/12/2014 Inactive Medication Administered Medication Codes Instructions Start Date Status ceftriaxone 500 mg solution for injection RxNorm: 1594616 1Gram 03/16/2017 No longer Active Immunizations No Immunization data Assessments Condition Codes Effective Dates Periapical abscess without sinus ICD-10: K04.7 ICD-9: 522.5 03/20/2017 Cellulitis and abscess of mouth ICD-10: K12.2 ICD-9: 528.3 03/20/2017 Low back pain ICD-10: M54.5 ICD-9: 724.2 11/16/2016 Essential (primary) hypertension ICD-10: I10 ICD-9: 401.9 11/16/2016 Impaired fasting glucose ICD-10: R73.01 ICD-9: 790.21 07/15/2016 Drug induced constipation ICD-10: K59.03 ICD-9: 564.09 07/15/2016 Encounter for screening for other viral diseases ICD-10: Z11.59 ICD-9: V73.89 07/15/2016 Mixed hyperlipidemia ICD-10: E78.2 ICD-9: 272.4 07/15/2016 Encounter for screening for malignant neoplasm of prostate ICD-10: Z12.5 ICD-9: V76.44 07/15/2016 Bilateral primary osteoarthritis of knee ICD-10: M17.0 ICD-9: 715.96 03/08/2016 Dental caries, unspecified ICD-10: K02.9 ICD-9: 521.09 08/06/2015 Major depressive disorder, single episode, unspecified ICD- 10: F32.9 ICD-9: 311 08/06/2015 Other specified polyneuropathies ICD-10: G62.89 ICD-9: 356.8 08/06/2015 Cervicalgia ICD-10: M54.2 ICD-9: 723.1 08/06/2015 Morbid (severe) obesity due to excess calories ICD-10: E66.01 ICD-9: 278.01 05/04/2015 Idiopathic gout, unspecified ankle and foot ICD-10: M10.079 ICD-9: 274.9 05/04/2015 GOUT ICD-9: 274.9 11/06/2014 Sinusitis, acute ICD-9: 461.9 11/06/2014 HYPERLIPIDEMIA ICD-9: 272.4 11/06/2014 Reason For Visit Reason For Visit Effective Dates Notes oral pain 03/20/2017 low back pain 03/16/2017 oral pain 03/10/2017 low back pain 11/16/2016 knee pain 07/15/2016 knee pain 03/08/2016 medication follow up 11/26/2015 neck pain 08/06/2015 paresthesia 05/04/2015 sinus congestion 11/06/2014 Results Observation Observation Code Item Item Code Result Date Hepatitis C Antibody With Reflex For Hcv Antibody Verificat 932368 HEPATITIS C ANTIBODY NEGATIVE 07/19/2016 Tsh Ord6 hTSH II 1.99 uIU/mL 07/18/2016 %Hba1C Ajw905 % HbA1c 22831-0 5.8 % 07/18/2016 %Hba1C Pob603 Gluc Ave 120 mg/dL 07/18/2016 Total Psa Ord10 PSA 0.75 ng/mL 07/18/2016 Cbc With Differential Ord2 WBC 4.66 K/ul 07/18/2016 Cbc With Differential Ord2 RBC 4.51 M/ul 07/18/2016 Cbc With Differential Ord2 HGB 14.2 g/dl 07/18/2016 Cbc With Differential Ord2 HCT 42.4 % 07/18/2016 Cbc With Differential Ord2 Neut% 70.6 % 07/18/2016 Cbc With Differential Ord2 MCV 94.0 fl 07/18/2016 Cbc With Differential Ord2 Lymph% 14.8 % 07/18/2016 Cbc With Differential Ord2 [place]% 11.2 % 07/18/2016 Cbc With Differential Ord2 [...] 0.69 K/ul 07/18/2016 Cbc With Differential Ord2 [place] ABS# 0.5 K/ul 07/18/2016 Cbc With Differential Ord2 Eos ABS# 0.2 K/ul 07/18/2016 Cbc With Differential Ord2 Baso ABS# 0.0 K/ul 07/18/2016 Comp Metabolic Tom201 NA 136 mEq/L 07/18/2016 Comp Metabolic Rvm102 K 4.3 mEq/L 07/18/2016 Comp Metabolic Rfs027 CL 100 mEq/L 07/18/2016 Comp Metabolic Cfr684 CO2 30.0 mEq/L 07/18/2016 Comp Metabolic Zqi075 ANION GAP 10 07/18/2016 Comp Metabolic Fak753 GLUCOSE 104 mg/dL 07/18/2016 Comp Metabolic Euo077 Creat 1.0 mg/dL 07/18/2016 Comp Metabolic Cco060 eGFR 81 ml/min/1.73m2 07/18/2016 Comp Metabolic Dck713 BUN 21 mg/dL 07/18/2016 Comp Metabolic Wvr040 B/C Ratio 20.8 Ratio 07/18/2016 Comp Metabolic Mxf415 CALCIUM 9.5 mg/dL 07/18/2016 Comp Metabolic Uwa640 ALK PHOS 45 U/L 07/18/2016 Comp Metabolic Hwu687 AST(SGOT) 26 U/L 07/18/2016 Comp Metabolic Sfs249 ALT(SGPT) 52 U/L 07/18/2016 Comp Metabolic Hhn481 BILI T 0.8 mg/dL 07/18/2016 Comp Metabolic Axw282 ALBUMIN 4.7 g/dL 07/18/2016 Comp Metabolic Pua601 TPRO 6.9 g/dL 07/18/2016 Comp Metabolic Zcf060 GLOB 2.2 g/dL 07/18/2016 Comp Metabolic Eal976 A/G Ratio 2.2 Ratio 07/18/2016 Comp Metabolic Uah740 Osmo 275 mOsmo 07/18/2016 Lipid Ord30 CHOL 180 mg/dL 07/18/2016 Lipid Ord30 HDL 56.0 mg/dl 07/18/2016 Lipid Ord30 TRIG 153 mg/dL 07/18/2016 Lipid Ord30 LDL 93 mg/dL 07/18/2016 Lipid Ord30 C/HDL 3.2 Ratio 07/18/2016 Review of Systems System Result Effective Dates Constitutional recent illness 03/20/2017 Constitutional No chills [...] CPT-4: J0696 03/16/2017 Vital Signs Date Vital 03/20/2017 Blood Pressure 1: 134/72 Code : 8480-6 Heart Rate 1: 87 bpm Height: 5'10" SpO2: 97% 03/16/2017 Blood Pressure 1: 150/84 Code : 8480-6 BMI: 32.4 Code : 36591-0 Heart Rate 1 : 98 bpm Height: 5'10" SpO2: 97% Weight: 226 lbs 03/10/2017 Blood Pressure 1: 140/72 Code : 8480-6 BMI: 32.4 Code : 99608-9 Heart Rate 1 : 81 bpm Height: 5'10" SpO2: 97% Weight: 226 lbs 11/16/2016 Blood Pressure 1: 142/80 Code : 8480-6 BMI: 32.1 Code : 95910-0 Heart Rate 1 : 95 bpm Height: 5'10" SpO2: 98% Weight: 224 lbs 07/15/2016 Blood Pressure 1: 130/78 Code : 8480-6 BMI: 32.0 Code : 32790-4 Heart Rate 1 : 85 bpm Height: 5'10" SpO2: 95% Weight: 223 lbs 03/08/2016 Blood Pressure 1: 138/84 Code : 8480-6 BMI: 31.6 Code : 20136-1 Heart Rate 1 : 86 bpm Height: 5'10" SpO2: 98% Weight: 220 lbs 11/26/2015 Blood Pressure 1: 132/82 Code : 8480-6 BMI: 31.6 Code : 14988-6 Height: 5'10 " Weight: 220 lbs 08/06/2015 Blood Pressure 1: 138/74 Code : 8480-6 BMI: 31.0 Code : 00266-3 Heart Rate 1 : 87 bpm Height: 5'10" SpO2: 95% Weight: 216 lbs 05/04/2015 Blood Pressure 1: 128/80 Code : 8480-6 BMI: 33.6 Code : 21272-5 Heart Rate 1 : 94 bpm Height: 5'10" SpO2: 97% Weight: 234 lbs 11/06/2014 Blood Pressure 1: 132/92 Code : 8480-6 BMI: 31.1 Code : 84633-5 Heart Rate 1 : 88 bpm Height: 5'10" SpO2: 98% Weight: 217 lbs Functional Status No Functional Status data History of Present Illness Symptom Name Status Result Effective Date Notes oral pain Location on the left 03/20/2017 [...] Codes Date EST. PATIENT, LEVEL IV Diagnosis: Periapical abscess without sinus[ICD10: K04.7] Diagnosis: Cellulitis and abscess of mouth[ICD10: K12.2] [facility] CPT-4: 41569 03/20/2017 ([id number]) 30024 EST. PATIENT, LEVEL III Diagnosis: Periapical abscess without sinus[ICD10: K04.7] Diagnosis: Cellulitis and abscess of mouth[ICD10: K12.2] [facility] CPT-4: 73194 03/16/2017 ([id number]) 45744 EST. PATIENT, LEVEL III Diagnosis: Periapical abscess without sinus[ICD10: K04.7] [facility] CPT-4: 88892 03/10/2017 ([id number]) 41031 EST. PATIENT, LEVEL IV Diagnosis: Essential (primary) hypertension[ICD10: I10] Diagnosis: Low back pain[ICD10: M54.5] Mayte Mcfarlane MD, [facility] CPT- 4: 23368 11/16/2016 ([id number]) 46798 EST. PATIENT, LEVEL IV Diagnosis: Mixed hyperlipidemia[ICD10: E78.2] Diagnosis: Essential (primary) hypertension[ICD10: I10] Diagnosis: Impaired fasting glucose[ICD10: R73.01] Diagnosis: Encounter for screening for malignant neoplasm of prostate[ICD10: Z12.5] Diagnosis: Encounter for screening for other viral diseases[ICD10: Z11.59] Diagnosis: Drug induced constipation[ICD10: K59.03] Niya Mcfarlane MD, [facility] CPT-4: 42349 07/15/2016 ([id number]) 17800 EST. PATIENT, LEVEL III Diagnosis: Bilateral primary osteoarthritis of knee[ICD10: M17.0] Niya Mcfarlane MD, [facility] CPT-4: 93005 03/08/2016 ([id number]) 57997 EST. PATIENT, LEVEL III Diagnosis: Bilateral primary osteoarthritis of knee[ICD10: M17.0] Niya Mcfarlane MD, [facility] CPT-4: 49261 11/26/2015 14966 EST. PATIENT, LEVEL IV Diagnosis: Cervicalgia[ICD10: M54.2] Diagnosis: Other specified polyneuropathies[ICD10: G62.89] Diagnosis: Dental caries, unspecified[ICD10: K02.9] Diagnosis: Major depressive disorder, single episode, unspecified[ICD10: F32.9] Niya Mcfarlane MD, [facility] CPT-4: 06068 08/06/2015 ([id number]) [id number] EST. PATIENT, LEVEL IV Diagnosis: Mixed hyperlipidemia[ICD10: E78.2] Diagnosis: Idiopathic gout, unspecified ankle and foot[ICD10: M10.079] Diagnosis: Other specified polyneuropathies[ICD10: G62.89] Diagnosis: Morbid (severe) obesity due to excess calories[ICD10: E66.01] [facility] CPT-4: 15856 05/04/2015 ([id number]) OFFICE VISIT, NEW - LEVEL 4 Diagnosis: GOUT[ICD9: 274.9] Diagnosis: Sinusitis, acute[ICD9: 461.9] Diagnosis: HYPERLIPIDEMIA[ICD9: 272.4] [facility] CPT- 4: 37486 11/06/2014 Plan of Care Planned Activity Notes Codes Status Date Visit Plan: Cellulitis/Abscess - continue with current treatment course - restart keflex as patient had improvement of symptoms on the rocephin. continue with clindamycin and increase probiotic to tid dosing. Keep follow up appointment with Dr. Hendrix on 03/28. Notify clinic with any changes or concerns, or with any questions. 03/20/2017 Appointment: Julianna Stanford WPtel: [facility] (30 min) Complex 03/20/2017 Patient Education: [...] tid dosing. 03/16/2017 Appointment: Mayte Mcfarlane WPtel: [facility] (15 min) Moderate 03/16/2017 Patient Education: Patient Medication Summary Completed 03/16/2017 Visit Plan: Abscessed tooth-discussed with Dr Mcfarlane- plan for IV abx x 3 days-will start with clindamycin and rocephin today and continue rocephin Monday and Monday-will increase dose of oral clindamycin - rx sent to patient's pharmacy and instructed on use. Patient verbalized understanding of plan. 03/10/2017 Appointment: Niya Bryant WPtel: [phone] [place] (15 min) Moderate 03/10/2017 Patient [...] they worsen. 11/16/2016 Appointment: [facility]ane [phone] [place] (15 min) Moderate 11/16/2016 Patient Education: [...] hgb a1c 07/15/2016 [facility]ointment: [phone] [place] (15 min) Moderate 07/15/2016 Patient Education: Patient Medication Summary Completed 07/15/2016 Patient Education: Obesity Completed 07/15/2016 Patient Education: Hypertension Completed 07/15/2016 Visit Plan: OA knees - pt has chronic pain - has been maintained on current medications, has not sought out other medications, only uses PRN pain medications as directed, and understands the consequences of over- medication. 03/08/2016 Appointment: Niya Bryant WPtel: [address] [place], [place] [phone] (30 min) Complex 03/08/2016 Patient Education: Patient [...] of plan. 11/26/2015 Appointment: Niya Bryant WPtel: [phone] (30 min) Complex 11/26/2015 Patient Education: [...] to medications. 11/06/2014 Appointment: Mayte Mcfarlane [facility]Ptel[phone] [facility] [place] [place] ([place] New Patient 11/06/2014 Patient Education: Patient Medication Summary Completed 11/06/2014 Patient Education: Hypertension Completed 11/06/2014 Instructions Comment . Cellulitis/Abscess - continue with current treatment [...]
--- OUTSIDE RECORDS SUMMARY | 2018-07-11 13:14 | XMS REPORT | CCD ---
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 Name Role Phone PP Unavailable CCM Unavailable Summary Purpose Interface Exchange Insurance Providers Payer name Policy type / Coverage type Covered libertarian ID Effective Begin Date Effective End Date Blue Cross Blue [facility] Blue Cross/Blue Shield [id number] Unknown Unknown Family history Father Diagnosis Age At Onset Cancer Unknown Stroke Unknown Heart Attack Unknown Hyperlipidemia Unknown Diabetes mellitus Type 2 Unknown Arthritis Unknown Heart disease Unknown Mother Diagnosis Age At Onset Arthritis Unknown Hypertension Unknown Breast cancer Unknown Sister Diagnosis Age At Onset Multiple sclerosis Unknown Social History Social History Element Codes Description Effective Dates Employment Unknown 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 Number of children Unknown 3 one daughter lives locally, other children live in [place] - 05/04/2015 Marital status Unknown Danielle 11/06/[address]: 678200817 Has never smoked or chewed tobacco 11/06/2014 [...] Start Date Stop Date Status Fill Instructions Metanx (algal oil) 3 mg-35 mg-2 mg-90.314 mg capsule RxNorm: TAKE ONE CAPSULE BY MOUTH TWO TIMES DAILY 08/02/20172017 Active hydrocodone 10 mg-acetaminophen 325 mg tablet RxNorm: 909094 1 Tablet(s) PO QID as needed tooth abscess pain or back pain 07/27/2017 08/25/2017 Active enalapril 5 mg-hydrochlorothiazide 12.5 mg tablet RxNorm: 836092 TAKE ONE TABLET BY MOUTH DAILY 07/03/2017 12/29/2017 Active hydrocodone 10 mg-acetaminophen 325 mg tablet RxNorm: 495170 1 Tablet(s) PO QID as needed tooth abscess pain or back pain 06/23/2017 07/22/2017 Inactive hydrocodone 10 mg-acetaminophen 325 mg tablet RxNorm: 344551 1 Tablet(s) PO QID as needed tooth abscess pain or back pain 05/31/2017 06/22/2017 Inactive diclofenac sodium 75 mg tablet,delayed release RxNorm: 032685 TAKE ONE TABLET BY MOUTH TWICE A DAY 05/29/2017 09/25/2017 Active Valium 5 mg tablet RxNorm: 107543 Tablet(s) TAKE ONE TABLET BY MOUTH EVERY NIGHT AT BEDTIME 05/16/2017 06/14/2017 Inactive Cymbalta 60 mg capsule,delayed release RxNorm: 297849 TAKE ONE CAPSULE BY MOUTH DAILY 05/15/2017 09/11/2017 Active hydrocodone 10 mg-acetaminophen 325 mg tablet RxNorm: 235511 1 Tablet(s) PO QID as needed tooth abscess pain or back pain 2017 05/30/2017 Inactive Claritin-D 24 Hour 10 mg-240 mg tablet,extended release RxNorm: 8683464 Tablet(s) TAKE ONE TABLET BY MOUTH DAILY 04/19/2017 07/17/2017 Inactive hydrocodone 5 mg-acetaminophen 325 mg tablet RxNorm: 327586 1-2 Tablet(s) PO Q6 as needed 04/18/2017 05/02/2017 Inactive Effexor 75 mg tablet RxNorm: 700843 TAKE ONE TABLET BY MOUTH DAILY 04/13/2017 10/09/2017 Active Keflex 500 mg capsule RxNorm: 772222 1 Capsule(s) PO TID 201603/26/2017 Inactive clindamycin 300 mg capsule RxNorm: 481742 1 Capsule(s) PO TID 03/20/2017 03/26/2017 Inactive ceftriaxone 500 mg solution for injection RxNorm: 3391084 1 Gram(s) Inj 03/16/2017 03/16/2017 Inactive clindamycin 300 mg capsule RxNorm: 532798 1 Capsule(s) PO TID 03/16/2017 03/19/2017 Inactive hydrocodone 5 mg-acetaminophen 325 mg tablet RxNorm: 626976 1-2 Tablet(s) PO Q6 as needed 03/16/2017 03/16/2017 Inactive Keflex 500 mg capsule RxNorm: 458490 1 Capsule(s) PO TID 201603/19/2017 Inactive hydrocodone 10 mg-acetaminophen 325 mg tablet RxNorm: 315813 1 Tablet(s) PO QID as needed tooth abscess pain or back pain 03/16/2017 04/14/2017 Inactive simvastatin 40 mg tablet RxNorm: 720394 TAKE ONE TABLET BY MOUTH EVERY NIGHT AT BEDTIME 03/13/2017 09/08/2017 Active clindamycin 300 mg capsule RxNorm: 741437 1 Capsule(s) PO TID 03/10/2017 03/15/2017 Inactive hydrocodone 5 mg-acetaminophen 325 mg tablet RxNorm: 103348 1-2 Tablet(s) PO Q6 as needed 03/03/2017 03/15/2017 Inactive hydrocodone 5 mg-acetaminophen 325 mg tablet RxNorm: 572931 1 to 2 Tablet(s) PO Q6 as needed 02/15/2017 02/25/2017 Inactive hydrocodone 5 mg-acetaminophen 325 mg tablet RxNorm: 556695 1 to 2 Tablet(s) PO Q6 as needed 02/02/2017 02/12/2017 Inactive enalapril 5 mg-hydrochlorothiazide 12.5 mg tablet RxNorm: 024720 TAKE ONE TABLET BY MOUTH DAILY 01/23/2017 06/21/2017 Inactive diclofenac sodium 75 mg tablet,delayed release RxNorm: 275683 TAKE ONE TABLET BY MOUTH TWICE A DAY 01/23/2017 05/22/2017 Inactive hydrocodone 5 mg-acetaminophen 325 mg tablet RxNorm: 373619 1 to 2 Tablet(s) PO Q6 as needed 01/12/2017 01/22/2017 Inactive hydrocodone 5 mg-acetaminophen 325 mg tablet RxNorm: 991500 1 to 2 Tablet(s) PO Q6 as needed 12/29/2016 01/08/2017 Inactive hydrocodone 5 mg-acetaminophen 325 mg tablet RxNorm: 667744 1 to 2 Tablet(s) PO Q6 as needed 12/16/2016 12/26/2016 Inactive Cymbalta 60 mg capsule,delayed release RxNorm: 835095 TAKE ONE CAPSULE BY MOUTH DAILY 12/14/2016 05/12/2017 Inactive hydrocodone 5 mg-acetaminophen 325 mg tablet RxNorm: 571465 1 to 2 Tablet(s) PO Q6 as needed 11/30/2016 12/10/2016 Inactive Voltaren 1 % topical gel RxNorm: 504153 2 Gram(s) TOP QID bilateral SI joints 11/16/2016 01/14/2017 Inactive diclofenac sodium 75 mg tablet,delayed release RxNorm: 467013 TAKE ONE TABLET BY MOUTH TWICE A DAY 10/31/2016 01/22/2017 Inactive hydrocodone 5 mg-acetaminophen 325 mg tablet RxNorm: 065735 1 to 2 Tablet(s) PO Q6 as needed 10/27/2016 11/06/2016 Inactive hydrocodone 5 mg-acetaminophen 325 mg tablet RxNorm: 576448 1 to 2 Tablet(s) PO Q6 as needed 10/05/2016 10/15/2016 Inactive Effexor 75 mg tablet RxNorm: 365871 TAKE ONE TABLET BY MOUTH DAILY 10/03/2016 03/31/2017 Inactive Claritin-D 24 Hour 10 mg-240 mg tablet,extended release RxNorm: 5722044 Tablet(s) TAKE ONE TABLET BY MOUTH DAILY 09/26/2016 12/24/2016 Inactive hydrocodone 5 mg-acetaminophen 325 mg tablet RxNorm: 683873 1 to 2 Tablet(s) PO Q6 as needed 09/09/2016 09/19/2016 Inactive hydrocodone 5 mg-acetaminophen 325 mg tablet RxNorm: 040391 1 to 2 Tablet(s) PO Q6 as needed 08/19/2016 08/29/2016 Inactive hydrocodone 5 mg-acetaminophen 325 mg tablet RxNorm: 364603 1 to 2 Tablet(s) PO Q6 as needed 08/01/2016 08/11/2016 Inactive enalapril 5 mg-hydrochlorothiazide 12.5 mg tablet RxNorm: 562706 Tablet(s) TAKE ONE TABLET BY MOUTH DAILY 07/18/201601/13 Inactive Movantik 25 mg tablet RxNorm: 3169601 1 Tablet(s) PO QAM 2016 No Stop Date Active hydrocodone 5 mg-acetaminophen 325 mg tablet RxNorm: 595904 1 to 2 Tablet(s) PO Q6 as needed 07/15/2016 07/25/2016 Inactive diclofenac sodium 75 mg tablet,delayed release RxNorm: 962900 TAKE ONE TABLET BY MOUTH TWICE A DAY 06/27/2016 10/24/2016 Inactive hydrocodone 5 mg-acetaminophen 325 mg tablet RxNorm: 110582 1 to 2 Tablet(s) PO Q6 as needed 06/16/2016 06/26/2016 Inactive Claritin-D 24 Hour 10 mg-240 mg tablet,extended release RxNorm: 3480685 Tablet(s) TAKE ONE TABLET BY MOUTH DAILY 06/10/2016 08/08/2016 Inactive Metanx (algal oil) 3 mg-35 mg-2 mg-90.314 mg capsule RxNorm: Capsule(s) TAKE ONE CAPSULE BY MOUTH TWO TIMES DAILY 06/02/2016 05/27/2017 Inactive hydrocodone 5 mg-acetaminophen 325 mg tablet RxNorm: 626220 1 to 2 Tablet(s) PO Q6 as needed 05/27/2016 06/06/2016 Inactive Valium 5 mg tablet RxNorm: 651274 Tablet(s) TAKE ONE TABLET BY MOUTH EVERY NIGHT AT BEDTIME 05/16/2016 07/14/2016 Inactive Metanx (algal oil) 3 mg-35 mg-2 mg-90.314 mg capsule RxNorm: TAKE ONE CAPSULE BY MOUTH TWO TIMES DAILY 05/11/20162015 Inactive hydrocodone 5 mg-acetaminophen 325 mg tablet RxNorm: 848903 1 to 2 Tablet(s) PO Q6 as needed 04/25/2016 05/02/2016 Inactive [SAVINGS FOR NON-COVERED DRUGS -- BIN: 859830, PCN: ASPROD1, Group: XXXXX, ID# [id number], Questions: . THIS IS NOT INSURANCE.] hydrocodone 5 mg-acetaminophen 325 mg tablet RxNorm: 724898 1 to 2 Tablet(s) PO Q6 as needed 04/01/2016 04/08/2016 Inactive [SAVINGS FOR NON-COVERED DRUGS -- BIN: 387447, PCN: ASPROD1, Group: XXXXX, ID# [email or web address], Questions: . THIS IS NOT INSURANCE.] diclofenac sodium 75 mg tablet,delayed release RxNorm: 332835 TAKE ONE TABLET BY MOUTH TWICE A DAY 03/21/2016 06/18/2016 Inactive enalapril 5 mg-hydrochlorothiazide 12.5 mg tablet RxNorm: 461898 TAKE ONE TABLET BY MOUTH DAILY 03/21/2016 07/17/2016 Inactive Claritin-D 24 Hour 10 mg-240 mg tablet,extended release RxNorm: 9809960 Tablet(s) TAKE ONE TABLET BY MOUTH DAILY 03/11/2016 06/08/2016 Inactive hydrocodone 5 mg-acetaminophen 325 mg tablet RxNorm: 262692 1 to 2 Tablet(s) PO Q6 as needed 03/08/2016 03/15/2016 Inactive [SAVINGS FOR NON-COVERED DRUGS -- BIN: 946226, PCN: ASPROD1, Group: XXXXX, ID# [id number], Questions: . THIS IS NOT INSURANCE.] simvastatin 40 mg tablet RxNorm: 466981 1 Tablet(s) PO QHS 10/03/2016 Inactive Effexor 75 mg tablet RxNorm: 567144 Tablet(s) TAKE ONE TABLET BY MOUTH DAILY 03/08/2016 10/02/2016 Inactive simvastatin 40 mg tablet RxNorm: 784053 TAKE ONE TABLET BY MOUTH EVERY NIGHT AT BEDTIME 02/05/2016 05/04/2016 Inactive Request already responded to by other means (e.g. phone or fax) hydrocodone 5 mg-acetaminophen 325 mg tablet RxNorm: 421965 1 to 2 Tablet(s) PO Q6 as needed 02/02/2016 02/09/2016 Inactive [SAVINGS FOR NON-COVERED DRUGS -- BIN: 521969, PCN: ASPROD1, Group: XXXXX, ID# [id number], Questions: . THIS IS NOT INSURANCE.] simvastatin 40 mg tablet RxNorm: 008318 1 Tablet(s) PO QHS 03/07/2016 Inactive Cymbalta 60 mg capsule,delayed release RxNorm: 386633 TAKE ONE CAPSULE BY MOUTH DAILY 01/14/2016 06/11/2016 Inactive Request already responded to by other means ( e.g. phone or fax) Claritin-D 24 Hour 10 mg-240 mg tablet,extended release RxNorm: 9133293 Tablet(s) TAKE ONE TABLET BY MOUTH DAILY 01/14/2016 02/12/2016 Inactive hydrocodone 5 mg-acetaminophen 325 mg tablet RxNorm: 865812 1 to 2 Tablet(s) PO Q6 as needed 01/14/2016 01/21/2016 Inactive [SAVINGS FOR NON-COVERED DRUGS -- BIN: 496434, PCN: ASPROD1, Group: XXXXX, ID# [id number], Questions: . THIS IS NOT INSURANCE.] Claritin-D 24 Hour 10 mg-240 mg tablet,extended release RxNorm: 6511002 TAKE ONE TABLET BY MOUTH DAILY 01/14/20162015 Inactive Cymbalta 60 mg capsule,delayed release RxNorm: 913815 Capsule(s) TAKE ONE CAPSULE BY MOUTH DAILY 01/12/2016 01/13/2016 Inactive Claritin-D 24 Hour 10 mg-240 mg tablet,extended release RxNorm: 9745669 TAKE ONE TABLET BY MOUTH DAILY 01/11/20162015 Inactive Claritin-D 24 Hour 10 mg-240 mg tablet,extended release RxNorm: 3413286 TAKE ONE TABLET BY MOUTH DAILY 01/11/20162015 Inactive Claritin-D 24 Hour 10 mg-240 mg tablet,extended release RxNorm: 8405101 TAKE ONE TABLET BY MOUTH DAILY 01/07/20162015 Inactive Effexor 75 mg tablet RxNorm: 468535 TAKE ONE TABLET BY MOUTH DAILY 01/01/2016 02/29/2016 Inactive diclofenac sodium 75 mg tablet,delayed release RxNorm: 971172 TAKE ONE TABLET BY MOUTH TWICE A DAY 12/23/2015 03/20/2016 Inactive enalapril 5 mg-hydrochlorothiazide 12.5 mg tablet RxNorm: 648535 TAKE ONE TABLET BY MOUTH DAILY 12/23/2015 03/20/2016 Inactive hydrocodone 5 mg-acetaminophen 325 mg tablet RxNorm: 549213 1 to 2 Tablet(s) PO Q6 as needed 12/22/2015 12/29/2015 Inactive [SAVINGS FOR NON-COVERED DRUGS -- BIN: 823034, PCN: ASPROD1, Group: XXXXX, ID# [id number], Questions: . THIS IS NOT INSURANCE.] Valium 5 mg tablet RxNorm: 665188 Tablet(s) TAKE ONE TABLET BY MOUTH EVERY NIGHT AT BEDTIME 12/01/2015 01/28/2016 Inactive hydrocodone 5 mg-acetaminophen 325 mg tablet RxNorm: 041570 1 to 2 Tablet(s) PO Q6 as needed 11/30/2015 12/07/2015 Inactive [SAVINGS FOR NON-COVERED DRUGS -- BIN: 520330, PCN: ASPROD1, Group: XXXXX, ID# [id number], Questions: . THIS IS NOT INSURANCE.] hydrocodone 5 mg-acetaminophen 325 mg tablet RxNorm: 672341 1 to 2 Tablet(s) PO Q6 as needed 11/09/2015 11/16/2015 Inactive [SAVINGS FOR NON-COVERED DRUGS -- BIN: 135296, PCN: ASPROD1, Group: XXXXX, ID# [id number], Questions: . THIS IS NOT INSURANCE.] Claritin-D 24 Hour 10 mg-240 mg tablet,extended release RxNorm: 3636867 Tablet(s) TAKE ONE TABLET BY MOUTH DAILY 11/05/2015 11/04/2015 Inactive Claritin-D 24 Hour 10 mg-240 mg tablet,extended release RxNorm: 8564130 Tablet(s) TAKE ONE TABLET BY MOUTH DAILY 11/05/2015 01/06/2016 Inactive Claritin-D 24 Hour 10 mg-240 mg tablet,extended release RxNorm: 1908355 Tablet(s) TAKE ONE TABLET BY MOUTH DAILY 10/30/2015 03/10/2016 Inactive hydrocodone 5 mg-acetaminophen 325 mg tablet RxNorm: 429287 1 to 2 Tablet(s) PO Q6 as needed 10/09/2015 10/16/2015 Inactive [SAVINGS FOR NON-COVERED DRUGS -- BIN: 553989, PCN: ASPROD1, Group: XXXXX, ID# [id number], Questions: . THIS IS NOT INSURANCE.] Effexor 75 mg tablet RxNorm: 284652 TAKE ONE TABLET BY MOUTH DAILY 10/05/2015 12/31/2015 Inactive simvastatin 40 mg tablet RxNorm: 848851 1 Tablet(s) PO QHS 01/31/2016 Inactive hydrocodone 5 mg-acetaminophen 325 mg tablet RxNorm: 813483 1 to 2 Tablet(s) PO Q6 as needed 09/15/2015 09/22/2015 Inactive [SAVINGS FOR NON-COVERED DRUGS -- BIN: 084082, PCN: ASPROD1, Group: XXXXX, ID# [id number], Questions: . THIS IS NOT INSURANCE.] Valium 5 mg tablet RxNorm: 965045 Tablet(s) TAKE ONE TABLET BY MOUTH EVERY NIGHT AT BEDTIME 09/08/2015 11/05/2015 Inactive enalapril 5 mg-hydrochlorothiazide 12.5 mg tablet RxNorm: 706359 Tablet(s) TAKE ONE TABLET BY MOUTH DAILY 08/21/201512/17 Inactive diclofenac sodium 75 mg tablet,delayed release RxNorm: 330961 1 Tablet(s) PO BID 08/21/2015 12/18/2015 Inactive hydrocodone 5 mg-acetaminophen 325 mg tablet RxNorm: 588247 1 to 2 Tablet(s) PO Q6 as needed 08/13/2015 08/20/2015 Inactive [SAVINGS FOR NON-COVERED DRUGS -- BIN: 206308, PCN: ASPROD1, Group: XXXXX, ID# [id number], Questions: . THIS IS NOT INSURANCE.] clindamycin 300 mg capsule RxNorm: 887717 1 Capsule(s) PO TID 08/06/2015 08/10/2015 Inactive Claritin-D 24 Hour 10 mg-240 mg tablet,extended release RxNorm: 1508336 Tablet(s) TAKE ONE TABLET BY MOUTH DAILY 07/23/2015 10/20/2015 Inactive hydrocodone 5 mg-acetaminophen 325 mg tablet RxNorm: 085415 1 to 2 Tablet(s) PO Q6 as needed 07/23/2015 07/30/2015 Inactive [SAVINGS FOR NON-COVERED DRUGS -- BIN: 086248, PCN: ASPROD1, Group: XXXXX, ID# [id number], Questions: . THIS IS NOT INSURANCE.] Valium 5 mg tablet RxNorm: 829808 Tablet(s) TAKE ONE TABLET BY MOUTH EVERY NIGHT AT BEDTIME 07/22/2015 08/18/2015 Inactive Claritin-D 24 Hour 10 mg-240 mg tablet,extended release RxNorm: 7343343 TAKE ONE TABLET BY MOUTH DAILY 07/22/20152015 Inactive Claritin-D 24 Hour 10 mg-240 mg tablet,extended release RxNorm: 9495638 TAKE ONE TABLET BY MOUTH DAILY 07/20/20152015 Inactive Cymbalta 60 mg capsule,delayed release RxNorm: 562839 TAKE ONE CAPSULE BY MOUTH DAILY 07/20/2015 01/11/2016 Inactive cyclobenzaprine 10 mg tablet RxNorm: 450518 TAKE ONE TABLET BY MOUTH AT BEDTIME NEEDED 07/06/2015 08/04/2015 Inactive hydrocodone 5 mg-acetaminophen 325 mg tablet RxNorm: 777642 1 to 2 Tablet(s) PO Q6 as needed 06/23/2015 06/30/2015 Inactive [SAVINGS FOR NON-COVERED DRUGS -- BIN: 815425, PCN: ASPROD1, Group: XXXXX, ID# [id number], Questions: . THIS IS NOT INSURANCE.] Effexor 75 mg tablet RxNorm: 932675 1 Tablet(s) PO daily 201409/28/2015 Inactive Valium 5 mg tablet RxNorm: 424030 Tablet(s) TAKE ONE TABLET BY MOUTH EVERY NIGHT AT BEDTIME 05/22/2015 06/19/2015 Inactive hydrocodone 5 mg-acetaminophen 325 mg tablet RxNorm: 798030 1 to 2 Tablet(s) PO Q6 as needed 05/22/2015 05/29/2015 Inactive [SAVINGS FOR NON-COVERED DRUGS -- BIN: 492105, PCN: ASPROD1, Group: XXXXX, ID# [id number], Questions: . THIS IS NOT INSURANCE.] diclofenac sodium 75 mg tablet,delayed release RxNorm: 733306 1 Tablet(s) PO BID 05/04/2015 08/20/2015 Inactive Metanx (algal oil) 3 mg-35 mg-2 mg-90.314 mg capsule RxNorm: 1 Capsule(s) PO BID 05/04/2015 04/27/2016 Inactive enalapril 5 mg-hydrochlorothiazide 12.5 mg tablet RxNorm: 820421 TAKE ONE TABLET BY MOUTH DAILY 04/27/2015 08/20/2015 Inactive hydrocodone 5 mg-acetaminophen 325 mg tablet RxNorm: 287506 1 to 2 Tablet(s) PO Q6 as needed 04/27/2015 05/04/2015 Inactive [SAVINGS FOR NON-COVERED DRUGS -- BIN: 274528, PCN: ASPROD1, Group: XXXXX, ID# [id number], Questions: . THIS IS NOT INSURANCE.] hydrocodone 5 mg-acetaminophen 325 mg tablet RxNorm: 489660 1 to 2 Tablet(s) PO Q6 as needed 03/26/2015 04/02/2015 Inactive [SAVINGS FOR NON-COVERED DRUGS -- BIN: 986438, PCN: ASPROD1, Group: XXXXX, ID# [id number], Questions: . THIS IS NOT INSURANCE.] Claritin-D 24 Hour 10 mg-240 mg tablet,extended release RxNorm: 3102763 Tablet(s) TAKE ONE TABLET BY MOUTH DAILY 03/24/2015 07/19/2015 Inactive Valium 5 mg tablet RxNorm: 959325 TAKE ONE TABLET BY MOUTH EVERY NIGHT AT BEDTIME 03/05/2015 04/03/2015 Inactive Valium 5 mg tablet RxNorm: 420858 1 Tablet(s) PO daily as needed 03/05/2015 03/05/2015 Inactive [SAVINGS FOR NON-COVERED DRUGS -- BIN:671933, PCN: ASPROD1, Group : XXXXX, ID# [id number], Questions: . THIS IS NOT INSURANCE.] hydrocodone 5 mg-acetaminophen 325 mg tablet RxNorm: 493641 1 to 2 Tablet(s) PO Q6 as needed 02/18/2015 02/25/2015 Inactive [SAVINGS FOR NON-COVERED DRUGS -- BIN: 259661, PCN: ASPROD1, Group: XXXXX, ID# [id number], Questions: . THIS IS NOT INSURANCE.] enalapril 5 mg-hydrochlorothiazide 12.5 mg tablet RxNorm: 559321 1 Tablet(s) PO daily 01/30/2015 04/26/2015 Inactive hydrocodone 5 mg-acetaminophen 325 mg tablet RxNorm: 507555 1 to 2 Tablet(s) PO Q6 as needed 01/22/2015 01/29/2015 Inactive [SAVINGS FOR NON-COVERED DRUGS -- BIN: 523762, PCN: ASPROD1, Group: XXXXX, ID# [id number], Questions: . THIS IS NOT INSURANCE.] Claritin-D 24 Hour 10 mg-240 mg tablet,extended release RxNorm: 8072128 TAKE ONE TABLET BY MOUTH DAILY 01/15/20152014 Inactive Claritin-D 24 Hour 10 mg-240 mg tablet,extended release RxNorm: 8157652 Tablet(s) TAKE ONE TABLET BY MOUTH DAILY 01/15/2015 01/14/2015 Inactive cyclobenzaprine 10 mg tablet RxNorm: 362916 1 Tablet(s) PO QHS as needed 12/29/2014 01/27/2015 Inactive hydrocodone 5 mg-acetaminophen 325 mg tablet RxNorm: 805890 1 to 2 Tablet(s) PO Q6 as needed 12/23/2014 12/30/2014 Inactive [SAVINGS FOR NON-COVERED DRUGS -- BIN: 830891, PCN: ASPROD1, Group: XXXXX, ID# [id number], Questions: . THIS IS NOT INSURANCE.] Cymbalta 60 mg capsule,delayed release RxNorm: 661051 1 Capsule(s) PO daily 12/18/2014 07/15/2015 Inactive Claritin-D 24 Hour 10 mg-240 mg tablet,extended release RxNorm: 4592880 TAKE ONE TABLET BY MOUTH DAILY 12/15/20142014 Inactive Claritin-D 24 Hour 10 mg-240 mg tablet,extended release RxNorm: 3659244 TAKE ONE TABLET BY MOUTH DAILY 12/15/20142014 Inactive Claritin-D 24 Hour 10 mg-240 mg tablet,extended release RxNorm: 2338720 TAKE ONE TABLET BY MOUTH DAILY 12/15/20142014 Inactive Claritin-D 24 Hour 10 mg-240 mg tablet,extended release RxNorm: 1042535 1 Tablet(s ) PO daily 12/10/2014 12/14/2014 Inactive hydrocodone 5 mg-acetaminophen 325 mg tablet RxNorm: 840192 1 to 2 Tablet(s) PO Q6 as needed 12/08/2014 12/22/2014 Inactive [SAVINGS FOR NON-COVERED DRUGS -- BIN: 168401, PCN: ASPROD1, Group: XXXXX, ID# [id number], Questions: . THIS IS NOT INSURANCE.] hydrocodone 5 mg-acetaminophen 325 mg tablet RxNorm: 718199 1 to 2 Tablet(s) PO Q6 as needed 11/25/2014 12/07/2014 Inactive [SAVINGS FOR NON-COVERED DRUGS -- BIN: 742369, PCN: ASPROD1, Group: XXXXX, ID# [id number], Questions: . THIS IS NOT INSURANCE.] Claritin-D 24 Hour 10 mg-240 mg tablet,extended release RxNorm: 2764804 1 Tablet(s ) PO daily 11/07/2014 12/06/2014 Inactive Claritin-D 24 Hour 10 mg-240 mg tablet,extended release RxNorm: 2160532 1 Tablet(s ) PO daily 11/07/2014 11/06/2014 Inactive hydrocodone 5 mg-acetaminophen 325 mg tablet RxNorm: 814645 1 to 2 Tablet(s) PO Q6 as needed 11/03/2014 11/24/2014 Inactive [SAVINGS FOR NON-COVERED DRUGS -- BIN: 763937, PCN: ASPROD1, Group: XXXXX, ID# [id number], Questions: . THIS IS NOT INSURANCE.] Valium 5 mg tablet RxNorm: 532698 1 Tablet(s) PO daily as needed 10/23/2014 12/20/2014 Inactive [SAVINGS FOR NON-COVERED DRUGS -- BIN:762618, PCN: ASPROD1, Group : XXXXX, ID# [id number], Questions: . THIS IS NOT INSURANCE.] Cialis 5 mg tablet RxNorm: 721383 1/2 Tablet(s) PO daily No Stop Date Active [SAVINGS FOR NON-COVERED DRUGS -- BIN:517930, PCN: ASPROD1, Group: XXXXX, ID# [id number], Questions: . THIS IS NOT INSURANCE.] aspirin 81 mg tablet RxNorm: 959203 1 Tablet(s) PO daily No Start Date Active Effexor 75 mg tablet RxNorm: 176812 1 Tablet(s) PO daily No Start Date 05/31/2015 Inactive Valium 5 mg tablet RxNorm: 933342 1 Tablet(s) PO daily as needed No Start Date 10/22/2014 Inactive simvastatin 40 mg tablet RxNorm: 888452 1 Tablet(s) PO QHS No Start Date 10/04/2015 Inactive enalapril 5 mg-hydrochlorothiazide 12.5 mg tablet RxNorm: 695376 oral No Start Date 01/29/2015 Inactive cyclobenzaprine 10 mg tablet RxNorm: 105960 1 Tablet(s) PO as needed No Start Date 12/28/2014 Inactive Cymbalta 60 mg capsule,delayed release RxNorm: 934615 1 Capsule(s) PO daily No Start Date 12/17/2014 Inactive hydrocodone 5 mg-acetaminophen 325 mg tablet RxNorm: 125365 1 to 2 Tablet(s) PO Q6 as needed No Start Date 11/02/2014 Inactive diclofenac sodium 75 mg tablet,delayed release RxNorm: 954626 1 Tablet(s) PO BID No Start Date 2015 Inactive Cialis 5 mg tablet RxNorm: 995560 1 Tablet(s) PO daily No Start Date 10/12/2014 Inactive Medication Administered Medication Codes Instructions Start Date Status ceftriaxone 500 mg solution for injection RxNorm: 6442041 1Gram 03/16/2017 No longer Active Immunizations No [...] viral diseases ICD-10: Z11.59 ICD-9: V73.89 07/15/2016 Bilateral primary osteoarthritis of knee ICD-10: M17.0 ICD-9: 715.96 03/08/2016 Cervicalgia ICD-10: M54.2 ICD-9: 723.1 08/06/2015 Other [...] Antibody With Reflex For Hcv Antibody Verificat 725752 HEPATITIS C ANTIBODY NEGATIVE 07/19/2016 Lipid Ord30 CHOL 180 mg/dL 07/18/2016 Lipid Ord30 HDL 56.0 mg/dl 07/18/2016 Lipid Ord30 TRIG 153 mg/dL 07/18/2016 Lipid Ord30 LDL 93 mg/dL 07/18/2016 Lipid Ord30 C/HDL 3.2 Ratio 07/18/2016 Comp Metabolic Nzo427 NA 136 mEq/L 07/18/2016 Comp Metabolic Jys774 K 4.3 mEq/L 07/18/2016 Comp Metabolic Nem145 CL 100 mEq/L 07/18/2016 Comp Metabolic Ist437 CO2 30.0 mEq/L 07/18/2016 Comp Metabolic Odf430 ANION GAP 10 07/18/2016 Comp Metabolic Qve804 GLUCOSE 104 mg/dL 07/18/2016 Comp Metabolic Xdu078 Creat 1.0 mg/dL 07/18/2016 Comp Metabolic Hbi059 eGFR 81 ml/min/1.73m2 07/18/2016 Comp Metabolic Puw902 BUN 21 mg/dL 07/18/2016 Comp Metabolic Bfy070 B/C Ratio 20.8 Ratio 07/18/2016 Comp Metabolic Enq715 CALCIUM 9.5 mg/dL 07/18/2016 Comp Metabolic Fck556 ALK PHOS 45 U/L 07/18/2016 Comp Metabolic Qvd664 AST(SGOT) 26 U/L 07/18/2016 Comp Metabolic Ttq991 ALT(SGPT) 52 U/L 07/18/2016 Comp Metabolic Gpg369 BILI T 0.8 mg/dL 07/18/2016 Comp Metabolic Okh977 ALBUMIN 4.7 g/dL 07/18/2016 Comp Metabolic Lls975 TPRO 6.9 g/dL 07/18/2016 Comp Metabolic Sth904 GLOB 2.2 g/dL 07/18/2016 Comp Metabolic Kru410 A/G Ratio 2.2 Ratio 07/18/2016 Comp Metabolic Iqc370 Osmo 275 mOsmo 07/18/2016 Cbc With Differential [...] 94.0 fl 07/18/2016 Cbc With Differential Ord2 [place]% 11.2 % 07/18/2016 Cbc With Differential Ord2 [...] 0.69 K/ul 07/18/2016 Cbc With Differential Ord2 [place] ABS# 0.5 K/ul 07/18/2016 Cbc With Differential Ord2 Eos ABS# 0.2 K/ul 07/18/2016 Cbc With Differential Ord2 Baso ABS# 0.0 K/ul 07/18/2016 Tsh Ord6 hTSH II 1.99 uIU/mL 07/18/2016 Total Psa Ord10 PSA 0.75 ng/mL 07/18/2016 %Hba1C Rqn819 % HbA1c 99247-2 5.8 % 07/18/2016 %Hba1C Ffz698 Gluc Ave 120 mg/dL 07/18/2016 Review of [...] Code : 8480-6 BMI: 32.4 Code : 61035-3 Heart Rate 1 : 98 bpm Height: 5'10" SpO2: 97% Weight: 226 lbs 03/10/2017 Blood Pressure 1: 140/72 Code : 8480-6 BMI: 32.4 Code : 20551-7 Heart Rate 1 : 81 bpm Height: 5'10" SpO2: 97% Weight: 226 lbs 11/16/2016 Blood Pressure 1: 142/80 Code : 8480-6 BMI: 32.1 Code : 66697-9 Heart Rate 1 : 95 bpm Height: 5'10" SpO2: 98% Weight: 224 lbs 07/15/2016 Blood Pressure 1: 130/78 Code : 8480-6 BMI: 32.0 Code : 97032-1 Heart Rate 1 : 85 bpm Height: 5'10" SpO2: 95% Weight: 223 lbs 03/08/2016 Blood Pressure 1: 138/84 Code : 8480-6 BMI: 31.6 Code : 89834-7 Heart Rate 1 : 86 bpm Height: 5'10" SpO2: 98% Weight: 220 lbs 11/26/2015 Blood Pressure 1: 132/82 Code : 8480-6 BMI: 31.6 Code : 61414-5 Height: 5'10 " Weight: 220 lbs 08/06/2015 Blood Pressure 1: 138/74 Code : 8480-6 BMI: 31.0 Code : 32274-1 Heart Rate 1 : 87 bpm Height: 5'10" SpO2: 95% Weight: 216 lbs 05/04/2015 Blood Pressure 1: 128/80 Code : 8480-6 BMI: 33.6 Code : 17303-5 Heart Rate 1 : 94 bpm Height: 5'10" SpO2: 97% Weight: 234 lbs 11/06/2014 Blood Pressure 1: 132/92 Code : 8480-6 BMI: 31.1 Code : 79177-2 Heart Rate 1 : 88 bpm Height: [...] mouth[ICD10: K12.2] [facility] CPT-4: 02900 03/20/[id number]) [id number] EST. PATIENT, LEVEL III Diagnosis: Periapical abscess without sinus[ICD10: K04.7] Diagnosis: Cellulitis and abscess of mouth[ICD10: K12.2] Mayte Mcfarlane MD, [facility] CPT-4: 01985 03/16/2017 ([id number]) 25075 EST. PATIENT, LEVEL III Diagnosis: Periapical abscess without sinus[ICD10: K04.7] Niya Mcfarlane MD, [facility] CPT-4: 97285 03/10/2017 ([id number]) 12885 EST. PATIENT, LEVEL IV Diagnosis: Essential (primary) hypertension[ICD10: I10] Diagnosis: Low back pain[ICD10: M54.5] Mayte Mcfarlane MD, [facility] CPT- 4: 23196 11/16/2016 ([id number]) 46214 EST. PATIENT, LEVEL IV Diagnosis: Mixed hyperlipidemia[ICD10: E78.2] Diagnosis: Essential (primary) hypertension[ICD10: I10] Diagnosis: Impaired fasting glucose[ICD10: R73.01] Diagnosis: Encounter for screening for malignant neoplasm of prostate[ICD10: Z12.5] Diagnosis: Encounter for screening for other viral diseases[ICD10: Z11.59] Diagnosis: Drug induced constipation[ICD10: K59.03] Niya Mcfarlane MD, [facility] CPT-4: 96660 07/15/2016 ([id number]) 65443 EST. PATIENT, LEVEL III Diagnosis: Bilateral primary osteoarthritis of knee[ICD10: M17.0] Niya Mcfarlane MD, [facility] CPT-4: 05207 03/08/2016 ([id number]) 46998 EST. PATIENT, LEVEL III Diagnosis: Bilateral primary osteoarthritis of knee[ICD10: M17.0] Niya Mcfarlane MD, [facility] CPT-4: 31404 11/26/2015 [id number] EST. PATIENT, LEVEL IV Diagnosis: Cervicalgia[ICD10: M54.2] Diagnosis: Other specified polyneuropathies[ICD10: G62.89] Diagnosis: Dental caries, unspecified[ICD10: K02.9] Diagnosis: Major depressive disorder, single episode, unspecified[ICD10: F32.9] Niya Mcfarlane MD, [facility] CPT-4: 93671 08/06/2015 ([id number]) 90748 EST. PATIENT, LEVEL IV Diagnosis: Mixed hyperlipidemia[ICD10: E78.2] Diagnosis: Idiopathic gout, unspecified ankle and foot[ICD10: M10.079] Diagnosis: Other specified polyneuropathies[ICD10: G62.89] Diagnosis: Morbid (severe) obesity due to excess calories[ICD10: E66.01] Mayte Mcfarlane MD, [facility] CPT-4: 02166 05/04/2015 ([id number]) OFFICE VISIT, NEW - LEVEL 4 Diagnosis: GOUT[ICD9: 274.9] Diagnosis: Sinusitis, acute[ICD9: 461.9] Diagnosis: HYPERLIPIDEMIA[ICD9: 272.4] Mayte Mcfarlane MD, [facility] CPT- 4: 47902 11/06/2014 Plan of Care Planned Activity Notes [...] any questions. 03/20/2017 Appointment: Julianna Stanford WPtel: [facility] (30 min) Complex 03/20/2017 Patient Education: [...] tid dosing. 03/16/2017 Appointment: Mayte Mcfarlane [facility]Ptel: [facility] ([facility] min) Moderate 03/16/2017 Patient Education: [...] plan. 03/10/2017 Appointment: Niya Bryant WPtel: [phone] [phone] (15 min) Moderate 03/10/2017 Patient Education: [...] worsen. 11/16/2016 Appointment: [phone] [place] (15 min) Moderate 11/16/2016 Patient Education: [...] a1c 07/15/2016 Appointment: [phone] (15 min) Moderate 07/15/2016 Patient Education: Patient Medication Summary Completed 07/15/2016 Patient Education: Obesity Completed 07/15/2016 Patient Education: Hypertension Completed 07/15/2016 Visit Plan: OA knees - pt has chronic pain - has been maintained on current medications, has not sought out other medications, only uses PRN pain medications as directed, and understands the consequences of over- medication. 03/08/2016 Appointment: Niya Bryant WPtel: [phone] [phone] (30 min) Complex 03/08/2016 Patient Education: [...] of plan. 11/26/2015 Appointment: Niya Bryant WPtel: [phone] (30 min) Complex 11/26/2015 Patient Education: Patient [...] to medications. 11/06/2014 Appointment: Mayte Mcfarlane WPtel: [address] [place], [place] [address] [place] ([place]) New Patient 11/06/2014 Patient Education: Patient Medication Summary Completed 11/06/2014 Patient Education: Hypertension Completed 11/06/2014 Instructions Comment . Cellulitis/Abscess - continue with current treatment course - restart keflex as patient had improvement of symptoms on the rocephin. continue with clindamycin and increase probiotic to tid dosing. Keep follow up appointment with Dr. Hendirx on 03/28. Notify clinic with any changes [...]
--- OUTSIDE RECORDS SUMMARY | 2018-07-11 13:15 | XMS REPORT | Continuity of Care Document ---
Author Author [facility] Organization [facility] Address Unknown Phone Unavailable Allergies Active Description Code Type Severity Reaction Onset Reported/Identified Relationship to Patient Clinical Status Yes No Known Drug Allergies [id number] Drug Allergy Unknown N/A 10/07/2012 Medications There is no data. 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 10/16/2014 Ot 715.96 10/16/2014 Ot 959.7 10/16/2014 Ot E000.8 10/16/2014 Ot E849.0 10/16/2014 Ot E928.9 10/16/2014 Ot 717.9 10/16/2014 Ot 733.99 10/16/2014 Ot 959.7 10/16/2014 Ot E000.8 10/16/2014 Ot E849.0 10/16/2014 Ot E927.0 10/16/2014 ALFREDITO QUEZADA, ED Ot 553.1 10/16/2014 ALFREDITO QUEZADA, ED Ot V72.63 10/16/2014 ALFREDITO QUEZADA, ED Ot V74.8 10/16/2014 ALFREDITO QUEZADA, ED Ot 553.1 UMBILICAL HERNIA 12/05/2014 ALFREDITO QUEZADA, ED Ot 553.1 12/05/2014 ALFREDITO QUEZADA, ED Ot V72.63 12/05/2014 ALFREDITO QUEZADA, ED Ot V74.8 03/15/2017 HÉCTOR POPEIE M CHASSIS INSPECTOR Ot K04.7 PERIAPICAL ABSCESS WITHOUT SINUS 03/15/2017 IAM POPE CHASSIS INSPECTOR Ot K04.7 PERIAPICAL ABSCESS WITHOUT SINUS 03/18/2017 POPEIAM CHASSIS INSPECTOR Ot K04.7 PERIAPICAL ABSCESS WITHOUT SINUS 03/18/2017 BEKA MARLOW APRN Ot K04.7 PERIAPICAL ABSCESS WITHOUT SINUS 03/20/2017 BEKA MARLOW THORACIC MEDICINE SPECIALIST Ot K04.7 PERIAPICAL ABSCESS WITHOUT SINUS 05/09/2017 BEKA MARLOW THORACIC MEDICINE SPECIALIST Ot K04.7 PERIAPICAL ABSCESS WITHOUT SINUS 06/17/2017 BEKA MARLOW THORACIC MEDICINE SPECIALIST Ot K04.7 PERIAPICAL ABSCESS WITHOUT SINUS 06/20/2017 BEKA MARLOW APRN Ot K04.7 PERIAPICAL ABSCESS WITHOUT SINUS 03/07/2018 ALFREDITO QUEZADA, ED Ot 553.1 UMBILICAL HERNIA 03/07/2018 ALFREDITO QUEZADA, TAKAAKI Ot V72.63 PRE-PROCEDURAL LABORATORY EXAMINATION 03/07/2018 ALFREDITO QUEZADA TAKAAKI Ot V74.8 SCREEN-BACTERIAL DIS NEC 03/07/2018 BEKA MARLOW THORACIC MEDICINE SPECIALIST Ot K04.7 PERIAPICAL ABSCESS WITHOUT SINUS 07/05/2018 ALFREDITO QUEZADA, TAKAAKI Ot Z01.818 ENCOUNTER FOR OTHER PREPROCEDURAL EXAMIN 07/06/2018 ED GLASER MD Ot Z01.818 ENCOUNTER FOR OTHER PREPROCEDURAL EXAMIN 05/18/2114 BEKA MARLOW APRN Ot K04.7 PERIAPICAL ABSCESS WITHOUT SINUS Procedures There is no data. Results Test Result Range Automated blood complete blood count (hemogram) panel - 03/17/17 21:07 Blood leukocytes automated count (number/volume) 6.3 10*3/uL 4.3-11.0 Blood erythrocytes automated count (number/volume) 4.48 10*6/uL 4.35-5.85 Venous blood hemoglobin measurement (mass/volume) 13.7 g/dL 13.3-17.7 Blood hematocrit (volume fraction) 42 % 40-54 Automated erythrocyte mean corpuscular volume 93 [foz_us] 80-99 Automated erythrocyte mean corpuscular hemoglobin (mass per erythrocyte) 31 pg 25-34 Automated erythrocyte mean corpuscular hemoglobin concentration measurement ( mass/volume) 33 g/dL 32-36 Automated erythrocyte distribution width ratio 13.6 % 10.0-14.5 Automated blood platelet count (count/volume) 264 10*3/uL 130-400 Automated blood platelet mean volume measurement 9.7 [foz_us] 7.4-10.4 Encounters ACCT No. Visit Date/Time Discharge Status Pt. Type Provider Facility Loc./Unit Complaint [id number] 07/06/2018 14:26:00 07/06/2018 14:32:00 DIS Outpatient ED GLASER MD [facility] PREOP COLONOSCOPY [id number] 06/18/2017 00:20:00 06/18/2017 23:59:59 CLS Preadmit BEKA MARLOW APRN [facility] [address] RCR DENTAL ABSCESS [id number] 03/19/2017 21:00:00 06/17/2017 00:01:00 DIS Outpatient BEKA MARLOW APRN [facility] 4TH RCR DENTAL ABSCESS [id number] 03/19/2017 03:00:00 03/19/2017 23:59:59 CLS Preadmit IAM POPE [facility] SDC ABSCESSED TOOTH [id number] 03/18/2017 21:15:00 03/18/2017 21:15:00 DIS Outpatient BEKA MARLOW APRN [facility] 4TH RCR DENTAL ABSCESS [id number] 03/12/2017 09:35:00 03/18/2017 00:01:00 DIS Outpatient IAM POPE [facility] SDC ABSCESSED TOOTH [id number] 10/16/2014 07:29:00 10/16/2014 13:00:00 DIS Outpatient ED GLASER MD [facility] SDC UMBILICAL HERNIA [id number] 10/03/2014 08:45:00 10/03/2014 23:59:59 CLS Outpatient ED GLASER MD [facility] PREOP UMBILICAL HERNIA [id number] 07/11/2018 09:30:00 PEN Preadmit ED GLASER MD [facility] ENDO SCREENING [id number] 10/16/2014 07:29:00 Document Registration [id number] 01/13/2012 13:27:00 Document Registration [id number] 04/20/2011 13:42:00 Document Registration [id number] 05/04/2017 16:01:04 05/04/2017 23:59:59 [facility] Outpatient
--- OUTSIDE RECORDS SUMMARY | 2018-07-11 13:15 | XMS REPORT | CCD ---
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 Name Role Phone PP Unavailable CCM Unavailable Summary Purpose Interface Exchange Insurance Providers Payer name Policy type / Coverage type Covered democrat ID Effective Begin Date Effective End Date Blue Cross Blue [facility] Blue Cross/Blue Shield [id number] Unknown Unknown Family history Father Diagnosis Age At Onset Cancer Unknown Stroke Unknown Heart Attack Unknown Hyperlipidemia Unknown Diabetes mellitus Type 2 Unknown Arthritis Unknown Heart disease Unknown Mother Diagnosis Age At Onset Arthritis Unknown Hypertension Unknown Breast cancer Unknown Sister Diagnosis Age At Onset Multiple sclerosis Unknown Social History Social History Element Codes Description Effective Dates Employment Unknown 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 Number of children Unknown 3 one daughter lives locally, other children live in [place] - 05/04/2015 Marital status Unknown [place] 11/06/[address]: 303138715 Has never smoked or chewed tobacco 11/06/2014 [...] hydrocodone 10 mg-acetaminophen 325 mg tablet RxNorm: 512253 1 Tablet(s) PO QID as needed tooth abscess pain or back pain 07/27/2017 08/25/2017 Active enalapril 5 mg-hydrochlorothiazide 12.5 mg tablet RxNorm: 819267 TAKE ONE TABLET BY MOUTH DAILY 07/03/2017 12/29/2017 Active hydrocodone 10 mg-acetaminophen 325 mg tablet RxNorm: 556150 1 Tablet(s) PO QID as needed tooth abscess pain or back pain 06/23/2017 07/22/2017 Inactive hydrocodone 10 mg-acetaminophen 325 mg tablet RxNorm: 950737 1 Tablet(s) PO QID as needed tooth abscess pain or back pain 05/31/2017 06/22/2017 Inactive diclofenac sodium 75 mg tablet,delayed release RxNorm: 600226 TAKE ONE TABLET BY MOUTH TWICE A DAY 05/29/2017 09/25/2017 Active Valium 5 mg tablet RxNorm: 707317 Tablet(s) TAKE ONE TABLET BY MOUTH EVERY NIGHT AT BEDTIME 05/16/2017 06/14/2017 Inactive Cymbalta 60 mg capsule,delayed release RxNorm: 633729 TAKE ONE CAPSULE BY MOUTH DAILY 05/15/2017 09/11/2017 Active hydrocodone 10 mg-acetaminophen 325 mg tablet RxNorm: 194645 1 Tablet(s) PO QID as needed tooth abscess pain or back pain 2017 05/30/2017 Inactive Claritin-D 24 Hour 10 mg-240 mg tablet,extended release RxNorm: 6528635 Tablet(s) TAKE ONE TABLET BY MOUTH DAILY 04/19/2017 07/17/2017 Inactive hydrocodone 5 mg-acetaminophen 325 mg tablet RxNorm: 443206 1-2 Tablet(s) PO Q6 as needed 04/18/2017 05/02/2017 Inactive Effexor 75 mg tablet RxNorm: 257270 TAKE ONE TABLET BY MOUTH DAILY 04/13/2017 10/09/2017 Active Keflex 500 mg capsule RxNorm: 131956 1 Capsule(s) PO TID 201603/26/2017 Inactive clindamycin 300 mg capsule RxNorm: 780551 1 Capsule(s) PO TID 03/20/2017 03/26/2017 Inactive ceftriaxone 500 mg solution for injection RxNorm: 7292237 1 Gram(s) Inj 03/16/2017 03/16/2017 Inactive clindamycin 300 mg capsule RxNorm: 277938 1 Capsule(s) PO TID 03/16/2017 03/19/2017 Inactive hydrocodone 5 mg-acetaminophen 325 mg tablet RxNorm: 769154 1-2 Tablet(s) PO Q6 as needed 03/16/2017 03/16/2017 Inactive Keflex 500 mg capsule RxNorm: 774147 1 Capsule(s) PO TID 201603/19/2017 Inactive hydrocodone 10 mg-acetaminophen 325 mg tablet RxNorm: 234556 1 Tablet(s) PO QID as needed tooth abscess pain or back pain 03/16/2017 04/14/2017 Inactive simvastatin 40 mg tablet RxNorm: 615953 TAKE ONE TABLET BY MOUTH EVERY NIGHT AT BEDTIME 03/13/2017 09/08/2017 Active clindamycin 300 mg capsule RxNorm: 702663 1 Capsule(s) PO TID 03/10/2017 03/15/2017 Inactive hydrocodone 5 mg-acetaminophen 325 mg tablet RxNorm: 955620 1-2 Tablet(s) PO Q6 as needed 03/03/2017 03/15/2017 Inactive hydrocodone 5 mg-acetaminophen 325 mg tablet RxNorm: 939519 1 to 2 Tablet(s) PO Q6 as needed 02/15/2017 02/25/2017 Inactive hydrocodone 5 mg-acetaminophen 325 mg tablet RxNorm: 581796 1 to 2 Tablet(s) PO Q6 as needed 02/02/2017 02/12/2017 Inactive enalapril 5 mg-hydrochlorothiazide 12.5 mg tablet RxNorm: 176232 TAKE ONE TABLET BY MOUTH DAILY 01/23/2017 06/21/2017 Inactive diclofenac sodium 75 mg tablet,delayed release RxNorm: 001162 TAKE ONE TABLET BY MOUTH TWICE A DAY 01/23/2017 05/22/2017 Inactive hydrocodone 5 mg-acetaminophen 325 mg tablet RxNorm: 348338 1 to 2 Tablet(s) PO Q6 as needed 01/12/2017 01/22/2017 Inactive hydrocodone 5 mg-acetaminophen 325 mg tablet RxNorm: 443349 1 to 2 Tablet(s) PO Q6 as needed 12/29/2016 01/08/2017 Inactive hydrocodone 5 mg-acetaminophen 325 mg tablet RxNorm: 543831 1 to 2 Tablet(s) PO Q6 as needed 12/16/2016 12/26/2016 Inactive Cymbalta 60 mg capsule,delayed release RxNorm: 456625 TAKE ONE CAPSULE BY MOUTH DAILY 12/14/2016 05/12/2017 Inactive hydrocodone 5 mg-acetaminophen 325 mg tablet RxNorm: 591393 1 to 2 Tablet(s) PO Q6 as needed 11/30/2016 12/10/2016 Inactive Voltaren 1 % topical gel RxNorm: 019301 2 Gram(s) TOP QID bilateral SI joints 11/16/2016 01/14/2017 Inactive diclofenac sodium 75 mg tablet,delayed release RxNorm: 544282 TAKE ONE TABLET BY MOUTH TWICE A DAY 10/31/2016 01/22/2017 Inactive hydrocodone 5 mg-acetaminophen 325 mg tablet RxNorm: 157037 1 to 2 Tablet(s) PO Q6 as needed 10/27/2016 11/06/2016 Inactive hydrocodone 5 mg-acetaminophen 325 mg tablet RxNorm: 059241 1 to 2 Tablet(s) PO Q6 as needed 10/05/2016 10/15/2016 Inactive Effexor 75 mg tablet RxNorm: 082354 TAKE ONE TABLET BY MOUTH DAILY 10/03/2016 03/31/2017 Inactive Claritin-D 24 Hour 10 mg-240 mg tablet,extended release RxNorm: 9734026 Tablet(s) TAKE ONE TABLET BY MOUTH DAILY 09/26/2016 12/24/2016 Inactive hydrocodone 5 mg-acetaminophen 325 mg tablet RxNorm: 195587 1 to 2 Tablet(s) PO Q6 as needed 09/09/2016 09/19/2016 Inactive hydrocodone 5 mg-acetaminophen 325 mg tablet RxNorm: 788391 1 to 2 Tablet(s) PO Q6 as needed 08/19/2016 08/29/2016 Inactive hydrocodone 5 mg-acetaminophen 325 mg tablet RxNorm: 907470 1 to 2 Tablet(s) PO Q6 as needed 08/01/2016 08/11/2016 Inactive enalapril 5 mg-hydrochlorothiazide 12.5 mg tablet RxNorm: 857277 Tablet(s) TAKE ONE TABLET BY MOUTH DAILY 07/18/201601/13 Inactive Movantik 25 mg tablet RxNorm: 2017957 1 Tablet(s) PO QAM 2016 No Stop Date Active hydrocodone 5 mg-acetaminophen 325 mg tablet RxNorm: 473000 1 to 2 Tablet(s) PO Q6 as needed 07/15/2016 07/25/2016 Inactive diclofenac sodium 75 mg tablet,delayed release RxNorm: 847977 TAKE ONE TABLET BY MOUTH TWICE A DAY 06/27/2016 10/24/2016 Inactive hydrocodone 5 mg-acetaminophen 325 mg tablet RxNorm: 373478 1 to 2 Tablet(s) PO Q6 as needed 06/16/2016 06/26/2016 Inactive Claritin-D 24 Hour 10 mg-240 mg tablet,extended release RxNorm: 2193761 Tablet(s) TAKE ONE TABLET BY MOUTH DAILY 06/10/2016 08/08/2016 Inactive Metanx (algal oil) 3 mg-35 mg-2 mg-90.314 mg capsule RxNorm: Capsule(s) TAKE ONE CAPSULE BY MOUTH TWO TIMES DAILY 06/02/2016 05/27/2017 Inactive hydrocodone 5 mg-acetaminophen 325 mg tablet RxNorm: 651365 1 to 2 Tablet(s) PO Q6 as needed 05/27/2016 06/06/2016 Inactive Valium 5 mg tablet RxNorm: 517412 Tablet(s) TAKE ONE TABLET BY MOUTH EVERY NIGHT AT BEDTIME 05/16/2016 07/14/2016 Inactive Metanx (algal oil) 3 mg-35 mg-2 mg-90.314 mg capsule RxNorm: TAKE ONE CAPSULE BY MOUTH TWO TIMES DAILY 05/11/20162015 Inactive hydrocodone 5 mg-acetaminophen 325 mg tablet RxNorm: 972791 1 to 2 Tablet(s) PO Q6 as needed 04/25/2016 05/02/2016 Inactive [SAVINGS FOR NON-COVERED DRUGS -- BIN: 985962, PCN: ASPROD1, Group: XXXXX, ID# [id number], Questions: . THIS IS NOT INSURANCE.] hydrocodone 5 mg-acetaminophen 325 mg tablet RxNorm: 295020 1 to 2 Tablet(s) PO Q6 as needed 04/01/2016 04/08/2016 Inactive [SAVINGS FOR NON-COVERED DRUGS -- BIN: 948881, PCN: ASPROD1, Group: XXXXX, ID# [id number], Questions: . THIS IS NOT INSURANCE.] diclofenac sodium 75 mg tablet,delayed release RxNorm: 321040 TAKE ONE TABLET BY MOUTH TWICE A DAY 03/21/2016 06/18/2016 Inactive enalapril 5 mg-hydrochlorothiazide 12.5 mg tablet RxNorm: 988593 TAKE ONE TABLET BY MOUTH DAILY 03/21/2016 07/17/2016 Inactive Claritin-D 24 Hour 10 mg-240 mg tablet,extended release RxNorm: 9611168 Tablet(s) TAKE ONE TABLET BY MOUTH DAILY 03/11/2016 06/08/2016 Inactive hydrocodone 5 mg-acetaminophen 325 mg tablet RxNorm: 051136 1 to 2 Tablet(s) PO Q6 as needed 03/08/2016 03/15/2016 Inactive [SAVINGS FOR NON-COVERED DRUGS -- BIN: 143729, PCN: ASPROD1, Group: XXXXX, ID# [id number], Questions: . THIS IS NOT INSURANCE.] simvastatin 40 mg tablet RxNorm: 895819 1 Tablet(s) PO QHS 10/03/2016 Inactive Effexor 75 mg tablet RxNorm: 329335 Tablet(s) TAKE ONE TABLET BY MOUTH DAILY 03/08/2016 10/02/2016 Inactive simvastatin 40 mg tablet RxNorm: 084778 TAKE ONE TABLET BY MOUTH EVERY NIGHT AT BEDTIME 02/05/2016 05/04/2016 Inactive Request already responded to by other means (e.g. phone or fax) hydrocodone 5 mg-acetaminophen 325 mg tablet RxNorm: 495551 1 to 2 Tablet(s) PO Q6 as needed 02/02/2016 02/09/2016 Inactive [SAVINGS FOR NON-COVERED DRUGS -- BIN: 047769, PCN: ASPROD1, Group: XXXXX, ID# [id number], Questions: . THIS IS NOT INSURANCE.] simvastatin 40 mg tablet RxNorm: 161297 1 Tablet(s) PO QHS 03/07/2016 Inactive Cymbalta 60 mg capsule,delayed release RxNorm: 550180 TAKE ONE CAPSULE BY MOUTH DAILY 01/14/2016 06/11/2016 Inactive Request already responded to by other means ( e.g. phone or fax) Claritin-D 24 Hour 10 mg-240 mg tablet,extended release RxNorm: 7149228 Tablet(s) TAKE ONE TABLET BY MOUTH DAILY 01/14/2016 02/12/2016 Inactive hydrocodone 5 mg-acetaminophen 325 mg tablet RxNorm: 142430 1 to 2 Tablet(s) PO Q6 as needed 01/14/2016 01/21/2016 Inactive [SAVINGS FOR NON-COVERED DRUGS -- BIN: 385530, PCN: ASPROD1, Group: XXXXX, ID# [id number], Questions: . THIS IS NOT INSURANCE.] Claritin-D 24 Hour 10 mg-240 mg tablet,extended release RxNorm: 3779433 TAKE ONE TABLET BY MOUTH DAILY 01/14/20162015 Inactive Cymbalta 60 mg capsule,delayed release RxNorm: 778592 Capsule(s) TAKE ONE CAPSULE BY MOUTH DAILY 01/12/2016 01/13/2016 Inactive Claritin-D 24 Hour 10 mg-240 mg tablet,extended release RxNorm: 9836655 TAKE ONE TABLET BY MOUTH DAILY 01/11/20162015 Inactive Claritin-D 24 Hour 10 mg-240 mg tablet,extended release RxNorm: 1318763 TAKE ONE TABLET BY MOUTH DAILY 01/11/20162015 Inactive Claritin-D 24 Hour 10 mg-240 mg tablet,extended release RxNorm: 5370112 TAKE ONE TABLET BY MOUTH DAILY 01/07/20162015 Inactive Effexor 75 mg tablet RxNorm: 715460 TAKE ONE TABLET BY MOUTH DAILY 01/01/2016 02/29/2016 Inactive diclofenac sodium 75 mg tablet,delayed release RxNorm: 202683 TAKE ONE TABLET BY MOUTH TWICE A DAY 12/23/2015 03/20/2016 Inactive enalapril 5 mg-hydrochlorothiazide 12.5 mg tablet RxNorm: 346577 TAKE ONE TABLET BY MOUTH DAILY 12/23/2015 03/20/2016 Inactive hydrocodone 5 mg-acetaminophen 325 mg tablet RxNorm: 865893 1 to 2 Tablet(s) PO Q6 as needed 12/22/2015 12/29/2015 Inactive [SAVINGS FOR NON-COVERED DRUGS -- BIN: 918059, PCN: ASPROD1, Group: XXXXX, ID# [id number], Questions: . THIS IS NOT INSURANCE.] Valium 5 mg tablet RxNorm: 761707 Tablet(s) TAKE ONE TABLET BY MOUTH EVERY NIGHT AT BEDTIME 12/01/2015 01/28/2016 Inactive hydrocodone 5 mg-acetaminophen 325 mg tablet RxNorm: 365818 1 to 2 Tablet(s) PO Q6 as needed 11/30/2015 12/07/2015 Inactive [SAVINGS FOR NON-COVERED DRUGS -- BIN: 162443, PCN: ASPROD1, Group: XXXXX, ID# [id number], Questions: . THIS IS NOT INSURANCE.] hydrocodone 5 mg-acetaminophen 325 mg tablet RxNorm: 524028 1 to 2 Tablet(s) PO Q6 as needed 11/09/2015 11/16/2015 Inactive [SAVINGS FOR NON-COVERED DRUGS -- BIN: 957356, PCN: ASPROD1, Group: XXXXX, ID# [id number], Questions: . THIS IS NOT INSURANCE.] Claritin-D 24 Hour 10 mg-240 mg tablet,extended release RxNorm: 9988213 Tablet(s) TAKE ONE TABLET BY MOUTH DAILY 11/05/2015 11/04/2015 Inactive Claritin-D 24 Hour 10 mg-240 mg tablet,extended release RxNorm: 9271982 Tablet(s) TAKE ONE TABLET BY MOUTH DAILY 11/05/2015 01/06/2016 Inactive Claritin-D 24 Hour 10 mg-240 mg tablet,extended release RxNorm: 7212626 Tablet(s) TAKE ONE TABLET BY MOUTH DAILY 10/30/2015 03/10/2016 Inactive hydrocodone 5 mg-acetaminophen 325 mg tablet RxNorm: 714854 1 to 2 Tablet(s) PO Q6 as needed 10/09/2015 10/16/2015 Inactive [SAVINGS FOR NON-COVERED DRUGS -- BIN: 539172, PCN: ASPROD1, Group: XXXXX, ID# [id number], Questions: . THIS IS NOT INSURANCE.] Effexor 75 mg tablet RxNorm: 859967 TAKE ONE TABLET BY MOUTH DAILY 10/05/2015 12/31/2015 Inactive simvastatin 40 mg tablet RxNorm: 424644 1 Tablet(s) PO QHS 01/31/2016 Inactive hydrocodone 5 mg-acetaminophen 325 mg tablet RxNorm: 699403 1 to 2 Tablet(s) PO Q6 as needed 09/15/2015 09/22/2015 Inactive [SAVINGS FOR NON-COVERED DRUGS -- BIN: 417058, PCN: ASPROD1, Group: XXXXX, ID# [id number], Questions: . THIS IS NOT INSURANCE.] Valium 5 mg tablet RxNorm: 404774 Tablet(s) TAKE ONE TABLET BY MOUTH EVERY NIGHT AT BEDTIME 09/08/2015 11/05/2015 Inactive enalapril 5 mg-hydrochlorothiazide 12.5 mg tablet RxNorm: 026933 Tablet(s) TAKE ONE TABLET BY MOUTH DAILY 08/21/201512/17 Inactive diclofenac sodium 75 mg tablet,delayed release RxNorm: 879675 1 Tablet(s) PO BID 08/21/2015 12/18/2015 Inactive hydrocodone 5 mg-acetaminophen 325 mg tablet RxNorm: 656712 1 to 2 Tablet(s) PO Q6 as needed 08/13/2015 08/20/2015 Inactive [SAVINGS FOR NON-COVERED DRUGS -- BIN: 693557, PCN: ASPROD1, Group: XXXXX, ID# [id number], Questions: . THIS IS NOT INSURANCE.] clindamycin 300 mg capsule RxNorm: 014913 1 Capsule(s) PO TID 08/06/2015 08/10/2015 Inactive Claritin-D 24 Hour 10 mg-240 mg tablet,extended release RxNorm: 8307053 Tablet(s) TAKE ONE TABLET BY MOUTH DAILY 07/23/2015 10/20/2015 Inactive hydrocodone 5 mg-acetaminophen 325 mg tablet RxNorm: 880253 1 to 2 Tablet(s) PO Q6 as needed 07/23/2015 07/30/2015 Inactive [SAVINGS FOR NON-COVERED DRUGS -- BIN: 826839, PCN: ASPROD1, Group: XXXXX, ID# [id number], Questions: . THIS IS NOT INSURANCE.] Valium 5 mg tablet RxNorm: 774216 Tablet(s) TAKE ONE TABLET BY MOUTH EVERY NIGHT AT BEDTIME 07/22/2015 08/18/2015 Inactive Claritin-D 24 Hour 10 mg-240 mg tablet,extended release RxNorm: 8429725 TAKE ONE TABLET BY MOUTH DAILY 07/22/20152015 Inactive Claritin-D 24 Hour 10 mg-240 mg tablet,extended release RxNorm: 4757929 TAKE ONE TABLET BY MOUTH DAILY 07/20/20152015 Inactive Cymbalta 60 mg capsule,delayed release RxNorm: 756261 TAKE ONE CAPSULE BY MOUTH DAILY 07/20/2015 01/11/2016 Inactive cyclobenzaprine 10 mg tablet RxNorm: 174378 TAKE ONE TABLET BY MOUTH AT BEDTIME NEEDED 07/06/2015 08/04/2015 Inactive hydrocodone 5 mg-acetaminophen 325 mg tablet RxNorm: 977096 1 to 2 Tablet(s) PO Q6 as needed 06/23/2015 06/30/2015 Inactive [SAVINGS FOR NON-COVERED DRUGS -- BIN: 079824, PCN: ASPROD1, Group: XXXXX, ID# [id number], Questions: . THIS IS NOT INSURANCE.] Effexor 75 mg tablet RxNorm: 259777 1 Tablet(s) PO daily 201409/28/2015 Inactive Valium 5 mg tablet RxNorm: 427388 Tablet(s) TAKE ONE TABLET BY MOUTH EVERY NIGHT AT BEDTIME 05/22/2015 06/19/2015 Inactive hydrocodone 5 mg-acetaminophen 325 mg tablet RxNorm: 542371 1 to 2 Tablet(s) PO Q6 as needed 05/22/2015 05/29/2015 Inactive [SAVINGS FOR NON-COVERED DRUGS -- BIN: 176507, PCN: ASPROD1, Group: XXXXX, ID# [id number], Questions: . THIS IS NOT INSURANCE.] diclofenac sodium 75 mg tablet,delayed release RxNorm: 424985 1 Tablet(s) PO BID 05/04/2015 08/20/2015 Inactive Metanx (algal oil) 3 mg-35 mg-2 mg-90.314 mg capsule RxNorm: 1 Capsule(s) PO BID 05/04/2015 04/27/2016 Inactive enalapril 5 mg-hydrochlorothiazide 12.5 mg tablet RxNorm: 427484 TAKE ONE TABLET BY MOUTH DAILY 04/27/2015 08/20/2015 Inactive hydrocodone 5 mg-acetaminophen 325 mg tablet RxNorm: 205067 1 to 2 Tablet(s) PO Q6 as needed 04/27/2015 05/04/2015 Inactive [SAVINGS FOR NON-COVERED DRUGS -- BIN: 552919, PCN: ASPROD1, Group: XXXXX, ID# [id number], Questions: . THIS IS NOT INSURANCE.] hydrocodone 5 mg-acetaminophen 325 mg tablet RxNorm: 680320 1 to 2 Tablet(s) PO Q6 as needed 03/26/2015 04/02/2015 Inactive [SAVINGS FOR NON-COVERED DRUGS -- BIN: 900940, PCN: ASPROD1, Group: XXXXX, ID# [id number], Questions: . THIS IS NOT INSURANCE.] Claritin-D 24 Hour 10 mg-240 mg tablet,extended release RxNorm: 7993984 Tablet(s) TAKE ONE TABLET BY MOUTH DAILY 03/24/2015 07/19/2015 Inactive Valium 5 mg tablet RxNorm: 095378 TAKE ONE TABLET BY MOUTH EVERY NIGHT AT BEDTIME 03/05/2015 04/03/2015 Inactive Valium 5 mg tablet RxNorm: 352347 1 Tablet(s) PO daily as needed 03/05/2015 03/05/2015 Inactive [SAVINGS FOR NON-COVERED DRUGS -- BIN:562405, PCN: ASPROD1, Group : XXXXX, ID# [id number], Questions: . THIS IS NOT INSURANCE.] hydrocodone 5 mg-acetaminophen 325 mg tablet RxNorm: 103082 1 to 2 Tablet(s) PO Q6 as needed 02/18/2015 02/25/2015 Inactive [SAVINGS FOR NON-COVERED DRUGS -- BIN: 676236, PCN: ASPROD1, Group: XXXXX, ID# [id number], Questions: . THIS IS NOT INSURANCE.] enalapril 5 mg-hydrochlorothiazide 12.5 mg tablet RxNorm: 196107 1 Tablet(s) PO daily 01/30/2015 04/26/2015 Inactive hydrocodone 5 mg-acetaminophen 325 mg tablet RxNorm: 340342 1 to 2 Tablet(s) PO Q6 as needed 01/22/2015 01/29/2015 Inactive [SAVINGS FOR NON-COVERED DRUGS -- BIN: 119015, PCN: ASPROD1, Group: XXXXX, ID# [id number], Questions: . THIS IS NOT INSURANCE.] Claritin-D 24 Hour 10 mg-240 mg tablet,extended release RxNorm: 6560757 TAKE ONE TABLET BY MOUTH DAILY 01/15/20152014 Inactive Claritin-D 24 Hour 10 mg-240 mg tablet,extended release RxNorm: 1084441 Tablet(s) TAKE ONE TABLET BY MOUTH DAILY 01/15/2015 01/14/2015 Inactive cyclobenzaprine 10 mg tablet RxNorm: 360250 1 Tablet(s) PO QHS as needed 12/29/2014 01/27/2015 Inactive hydrocodone 5 mg-acetaminophen 325 mg tablet RxNorm: 880666 1 to 2 Tablet(s) PO Q6 as needed 12/23/2014 12/30/2014 Inactive [SAVINGS FOR NON-COVERED DRUGS -- BIN: 426931, PCN: ASPROD1, Group: XXXXX, ID# [id number], Questions: . THIS IS NOT INSURANCE.] Cymbalta 60 mg capsule,delayed release RxNorm: 676016 1 Capsule(s) PO daily 12/18/2014 07/15/2015 Inactive Claritin-D 24 Hour 10 mg-240 mg tablet,extended release RxNorm: 9094450 TAKE ONE TABLET BY MOUTH DAILY 12/15/20142014 Inactive Claritin-D 24 Hour 10 mg-240 mg tablet,extended release RxNorm: 9104316 TAKE ONE TABLET BY MOUTH DAILY 12/15/20142014 Inactive Claritin-D 24 Hour 10 mg-240 mg tablet,extended release RxNorm: 0428520 TAKE ONE TABLET BY MOUTH DAILY 12/15/20142014 Inactive Claritin-D 24 Hour 10 mg-240 mg tablet,extended release RxNorm: 0669003 1 Tablet(s ) PO daily 12/10/2014 12/14/2014 Inactive hydrocodone 5 mg-acetaminophen 325 mg tablet RxNorm: 863837 1 to 2 Tablet(s) PO Q6 as needed 12/08/2014 12/22/2014 Inactive [SAVINGS FOR NON-COVERED DRUGS -- BIN: 456256, PCN: ASPROD1, Group: XXXXX, ID# [id number], Questions: . THIS IS NOT INSURANCE.] hydrocodone 5 mg-acetaminophen 325 mg tablet RxNorm: 403074 1 to 2 Tablet(s) PO Q6 as needed 11/25/2014 12/07/2014 Inactive [SAVINGS FOR NON-COVERED DRUGS -- BIN: 422062, PCN: ASPROD1, Group: XXXXX, ID# [id number], Questions: . THIS IS NOT INSURANCE.] Claritin-D 24 Hour 10 mg-240 mg tablet,extended release RxNorm: 7728015 1 Tablet(s ) PO daily 11/07/2014 12/06/2014 Inactive Claritin-D 24 Hour 10 mg-240 mg tablet,extended release RxNorm: 5242231 1 Tablet(s ) PO daily 11/07/2014 11/06/2014 Inactive hydrocodone 5 mg-acetaminophen 325 mg tablet RxNorm: 731604 1 to 2 Tablet(s) PO Q6 as needed 11/03/2014 11/24/2014 Inactive [SAVINGS FOR NON-COVERED DRUGS -- BIN: 084322, PCN: ASPROD1, Group: XXXXX, ID# [id number], Questions: . THIS IS NOT INSURANCE.] Valium 5 mg tablet RxNorm: 767428 1 Tablet(s) PO daily as needed 10/23/2014 12/20/2014 Inactive [SAVINGS FOR NON-COVERED DRUGS -- BIN:431009, PCN: ASPROD1, Group : XXXXX, ID# XXXXXXX, Questions: . THIS IS NOT INSURANCE.] Cialis 5 mg tablet RxNorm: 352960 1/2 Tablet(s) PO daily No Stop Date Active [SAVINGS FOR NON-COVERED DRUGS -- BIN:763510, PCN: ASPROD1, Group: XXXXX, ID# XXXXXXX, Questions: . THIS IS NOT INSURANCE.] aspirin 81 mg tablet RxNorm: 854871 1 Tablet(s) PO daily No Start Date Active Effexor 75 mg tablet RxNorm: 860455 1 Tablet(s) PO daily No Start Date 05/31/2015 Inactive Valium 5 mg tablet RxNorm: 565584 1 Tablet(s) PO daily as needed No Start Date 10/22/2014 Inactive simvastatin 40 mg tablet RxNorm: 394332 1 Tablet(s) PO QHS No Start Date 10/04/2015 Inactive enalapril 5 mg-hydrochlorothiazide 12.5 mg tablet RxNorm: 943866 oral No Start Date 01/29/2015 Inactive cyclobenzaprine 10 mg tablet RxNorm: 722057 1 Tablet(s) PO as needed No Start Date 12/28/2014 Inactive Cymbalta 60 mg capsule,delayed release RxNorm: 423707 1 Capsule(s) PO daily No Start Date 12/17/2014 Inactive hydrocodone 5 mg-acetaminophen 325 mg tablet RxNorm: 484723 1 to 2 Tablet(s) PO Q6 as needed No Start Date 11/02/2014 Inactive diclofenac sodium 75 mg tablet,delayed release RxNorm: 746618 1 Tablet(s) PO BID No Start Date 2015 Inactive Cialis 5 mg tablet RxNorm: 740208 1 Tablet(s) PO daily No Start Date 10/12/2014 Inactive Medication Administered Medication Codes Instructions Start Date Status ceftriaxone 500 mg solution for injection RxNorm: 1618226 1Gram 03/16/2017 No longer Active Immunizations No [...] Antibody With Reflex For Hcv Antibody Verificat 279672 HEPATITIS C ANTIBODY NEGATIVE 07/19/2016 Lipid Ord30 CHOL 180 mg/dL 07/18/2016 Lipid Ord30 HDL 56.0 mg/dl 07/18/2016 Lipid Ord30 TRIG 153 mg/dL 07/18/2016 Lipid Ord30 LDL 93 mg/dL 07/18/2016 Lipid Ord30 C/HDL 3.2 Ratio 07/18/2016 Comp Metabolic Kkq316 NA 136 mEq/L 07/18/2016 Comp Metabolic Phi233 K 4.3 mEq/L 07/18/2016 Comp Metabolic Lov301 CL 100 mEq/L 07/18/2016 Comp Metabolic Yni666 CO2 30.0 mEq/L 07/18/2016 Comp Metabolic Owo087 ANION GAP 10 07/18/2016 Comp Metabolic Ije871 GLUCOSE 104 mg/dL 07/18/2016 Comp Metabolic Xic224 Creat 1.0 mg/dL 07/18/2016 Comp Metabolic Lft594 eGFR 81 ml/min/1.73m2 07/18/2016 Comp Metabolic Pgz129 BUN 21 mg/dL 07/18/2016 Comp Metabolic Rok916 B/C Ratio 20.8 Ratio 07/18/2016 Comp Metabolic Zzu259 CALCIUM 9.5 mg/dL 07/18/2016 Comp Metabolic Kpl423 ALK PHOS 45 U/L 07/18/2016 Comp Metabolic Phy840 AST(SGOT) 26 U/L 07/18/2016 Comp Metabolic Fwr329 ALT(SGPT) 52 U/L 07/18/2016 Comp Metabolic Eud917 BILI T 0.8 mg/dL 07/18/2016 Comp Metabolic Tdl996 ALBUMIN 4.7 g/dL 07/18/2016 Comp Metabolic Yys628 TPRO 6.9 g/dL 07/18/2016 Comp Metabolic Dzi800 GLOB 2.2 g/dL 07/18/2016 Comp Metabolic Ady915 A/G Ratio 2.2 Ratio 07/18/2016 Comp Metabolic Tcs478 Osmo 275 mOsmo 07/18/2016 Cbc With Differential Ord2 WBC 4.66 K/ul 07/18/2016 Cbc With Differential Ord2 RBC 4.51 M/ul 07/18/2016 Cbc With Differential Ord2 HGB 14.2 g/dl 07/18/2016 Cbc With Differential Ord2 HCT 42.4 % 07/18/2016 Cbc With Differential Ord2 Neut% 70.6 % 07/18/2016 Cbc With Differential Ord2 Lymph% 14.8 % 07/18/2016 Cbc With Differential Ord2 MCV 94.0 fl 07/18/2016 Cbc With Differential Ord2 [place]% 11.2 % 07/18/2016 Cbc With Differential Ord2 [...] 0.69 K/ul 07/18/2016 Cbc With Differential Ord2 [place] ABS# 0.5 K/ul 07/18/2016 Cbc With Differential Ord2 Eos ABS# 0.2 K/ul 07/18/2016 Cbc With Differential Ord2 Baso ABS# 0.0 K/ul 07/18/2016 Tsh Ord6 hTSH II 1.99 uIU/mL 07/18/2016 Total Psa Ord10 PSA 0.75 ng/mL 07/18/2016 %Hba1C Isx111 % HbA1c 67791-5 5.8 % 07/18/2016 %Hba1C Kaj383 Gluc Ave 120 mg/dL 07/18/2016 Review of [...] Code : 8480-6 BMI: 32.4 Code : 14760-2 Heart Rate 1 : 98 bpm Height: 5'10" SpO2: 97% Weight: 226 lbs 03/10/2017 Blood Pressure 1: 140/72 Code : 8480-6 BMI: 32.4 Code : 45238-9 Heart Rate 1 : 81 bpm Height: 5'10" SpO2: 97% Weight: 226 lbs 11/16/2016 Blood Pressure 1: 142/80 Code : 8480-6 BMI: 32.1 Code : 93497-7 Heart Rate 1 : 95 bpm Height: 5'10" SpO2: 98% Weight: 224 lbs 07/15/2016 Blood Pressure 1: 130/78 Code : 8480-6 BMI: 32.0 Code : 95436-4 Heart Rate 1 : 85 bpm Height: 5'10" SpO2: 95% Weight: 223 lbs 03/08/2016 Blood Pressure 1: 138/84 Code : 8480-6 BMI: 31.6 Code : 16563-8 Heart Rate 1 : 86 bpm Height: 5'10" SpO2: 98% Weight: 220 lbs 11/26/2015 Blood Pressure 1: 132/82 Code : 8480-6 BMI: 31.6 Code : 73777-3 Height: 5'10 " Weight: 220 lbs 08/06/2015 Blood Pressure 1: 138/74 Code : 8480-6 BMI: 31.0 Code : 84756-7 Heart Rate 1 : 87 bpm Height: 5'10" SpO2: 95% Weight: 216 lbs 05/04/2015 Blood Pressure 1: 128/80 Code : 8480-6 BMI: 33.6 Code : 51177-6 Heart Rate 1 : 94 bpm Height: 5'10" SpO2: 97% Weight: 234 lbs 11/06/2014 Blood Pressure 1: 132/92 Code : 8480-6 BMI: 31.1 Code : 27200-4 Heart Rate 1 : 88 bpm Height: [...] mouth[ICD10: K12.2] [facility] CPT-4: 88058 03/20/2017 [id number]) [id number] EST. PATIENT, LEVEL III Diagnosis: Periapical abscess without sinus[ICD10: K04.7] Diagnosis: Cellulitis and abscess of mouth[ICD10: K12.2] [facility] CPT-4: 92044 03/16/2017 ([id number]) 85810 EST. PATIENT, LEVEL III Diagnosis: Periapical abscess without sinus[ICD10: K04.7] Niya Mcfarlane MD, [facility] CPT-4: 59156 03/10/2017 ([id number]) 57044 EST. PATIENT, LEVEL IV Diagnosis: Essential (primary) hypertension[ICD10: I10] Diagnosis: Low back pain[ICD10: M54.5] Mayte Mcfarlane MD, [facility] CPT- 4: 18181 11/16/2016 ([id number]) 10601 EST. PATIENT, LEVEL IV Diagnosis: Mixed hyperlipidemia[ICD10: E78.2] Diagnosis: Essential (primary) hypertension[ICD10: I10] Diagnosis: Impaired fasting glucose[ICD10: R73.01] Diagnosis: Encounter for screening for malignant neoplasm of prostate[ICD10: Z12.5] Diagnosis: Encounter for screening for other viral diseases[ICD10: Z11.59] Diagnosis: Drug induced constipation[ICD10: K59.03] Niya Mcfarlane MD, [facility] CPT-4: 47594 07/15/2016 ([id number]) 23890 EST. PATIENT, LEVEL III Diagnosis: Bilateral primary osteoarthritis of knee[ICD10: M17.0] Niya Mcfarlane MD, [facility] CPT-4: 11804 03/08/2016 ([id number]) 10139 EST. PATIENT, LEVEL III Diagnosis: Bilateral primary osteoarthritis of knee[ICD10: M17.0] Niya Mcfarlane MD, [facility] CPT-4: 01804 11/26/2015 10992 EST. PATIENT, LEVEL IV Diagnosis: Cervicalgia[ICD10: M54.2] Diagnosis: Other specified polyneuropathies[ICD10: G62.89] Diagnosis: Dental caries, unspecified[ICD10: K02.9] Diagnosis: Major depressive disorder, single episode, unspecified[ICD10: F32.9] Niya Mcfarlane MD, [facility] CPT-4: 52389 08/06/2015 ([id number]) 93852 EST. PATIENT, LEVEL IV Diagnosis: Mixed hyperlipidemia[ICD10: E78.2] Diagnosis: Idiopathic gout, unspecified ankle and foot[ICD10: M10.079] Diagnosis: Other specified polyneuropathies[ICD10: G62.89] Diagnosis: Morbid (severe) obesity due to excess calories[ICD10: E66.01] [facility] CPT-4: 28164 05/04/2015 ([id number]) OFFICE VISIT, NEW - LEVEL 4 Diagnosis: GOUT[ICD9: 274.9] Diagnosis: Sinusitis, acute[ICD9: 461.9] Diagnosis: HYPERLIPIDEMIA[ICD9: 272.4] [facility] CPT- 4: 93461 11/06/2014 Plan of Care Planned Activity Notes Codes Status Date Appointment: Julianna Stanford WPtel: [phone] [id number] (30 min) Complex 03/20/2017 Patient Education: Patient Medication Summary Completed 03/20/2017 Appointment: Mayte Mcfarlane WPtel: [phone] [facility] [place] (15 min) Moderate 03/16/2017 Patient Education: Patient Medication Summary Completed 03/16/2017 Appointment: Niya Bryant WPtel: [phone] [id number] [place] (15 min) Moderate 03/10/2017 Patient Education: Patient Medication Summary Completed 03/10/2017 Patient Education: Obesity Completed 03/10/2017 Appointment: Mayte Mcfarlane WPtel: [phone] [facility] [place] (15 min) Moderate 11/16/2016 Patient Education: Patient Medication Summary Completed 11/16/2016 Patient Education: Obesity Completed 11/16/2016 Patient Education: Hypertension Completed 11/16/2016 Appointment: Niya Bryant WPtel: [phone] [phone] [place] (15 min) Moderate 07/15/2016 Patient Education: Patient Medication Summary Completed 07/15/2016 Patient Education: Obesity Completed 07/15/2016 Patient Education: Hypertension Completed 07/15/2016 Appointment: Niya Bryant WPtel: [id number] (30 min) Complex 03/08/2016 Patient Education: Patient Medication Summary Completed 03/08/2016 Patient Education: Obesity Completed 03/08/2016 [facility]: [phone] (30 min) Complex 11/26/2015 Patient Education: Patient Medication Summary Completed 11/26/2015 Appointment: (30 min) Complex 08/06/2015 Patient Education: Patient Medication Summary Completed 08/06/2015 Patient Education: .Cervicalgia Neck Pain Completed 08/06/2015 Patient Education: Patient Medication Summary Completed 05/04/2015 Appointment: Mayte Mc[facility]arlane [facility]Ptel[facility] [place] [facility] New Patient 11/06/2014 Patient Education: Patient Medication Summary Completed 11/06/2014 Patient Education: Hypertension Completed 11/06/2014 Instructions No Instructions
--- NOTE | 2018-07-11 14:03 | OPERATIVE REPORT ---
DATE OF SERVICE: 07/11/2018 ATTENDING PRIMARY CARE PHYSICIAN: Mayte Mcfarlane MD PREOPERATIVE DIAGNOSIS: Screening colonoscopy with history of colon polyp. POSTOPERATIVE DIAGNOSIS: Mild sigmoid diverticulosis. PROCEDURE: Colonoscopy. SURGEON: Ed Glaser MD ANESTHESIA: Conscious sedation. ESTIMATED BLOOD LOSS: Minimal. FINDINGS: No significant hemorrhoids identified. There was a very mild or early sigmoid diverticulosis. Remainder of the colon was normal. There were no polyps or any neoplasms identified. DISPOSITION: The patient tolerated the procedure well. INDICATIONS: The patient is a 58-year-old male in need of a screening colonoscopy. He states for the most part he is doing well, does not report any major issues with diarrhea nor constipation as well as no red blood per rectum nor any dark tarry stools. His last colonoscopy was in 2009 and he does report that a small polyp was identified, biopsied and found to be benign. He does not report any family history of colon cancer. DESCRIPTION OF PROCEDURE: The patient was brought to the endoscopy suite, laid in the left lateral decubitus position. After adequate IV pain and sedating medications and conscious sedation anesthesia, a digital rectal examination was performed, which did not reveal any significant hemorrhoids. Normal sphincter tone was felt and there were no palpable masses. The endoscope was then intubated to the anus and rectum gently insufflated. The endoscope was then advanced to the valves of Nunn of the rectum with no polyps or any neoplasms identified. Through the sigmoid colon, there were a few very small or early diverticula. There were no mucosal inflammatory changes to indicate any diverticulitis. The endoscope was then advanced to the remainder of the descending, transverse and ascending colon to the cecum. These segments were normal. There were no polyps or any neoplasms identified throughout the colon or rectum. Endoscope was then slowly withdrawn with taking a second look and suctioning of residual air with no additional findings. The patient tolerated the procedure well. We will have him continue with medical management with a high fiber diet with at least 30 grams of fiber per day as well as copious amounts of water on a every day basis to promote soft stools on a daily basis. He does not need another colonoscopy for another 10 years; however, sooner if he becomes symptomatic. Job ID: [id number] DocumentID: [id number] Dictated Date: 07/11/2018 11:11:49 Director Of Graduate Medical Education Date: 07/11/2018 14:03:20 Dictated By: ED GLASER MD
== END 2018-07-11 12:12 | disposition home or self-care (01) ==
LOC: ENDO 09:28
PROVIDERS: ATTEND Surgery
DX: Z12.11 Encounter for screening for malignant neoplasm of colon (principal); K57.30 Diverticulosis of large intestine without perforation or abscess without bleeding; Z86.010 Personal history of colon polyps; I10 Essential (primary) hypertension; F41.9 Anxiety disorder, unspecified; F32.9 Major depressive disorder, single episode, unspecified; E78.00 Pure hypercholesterolemia, unspecified; G62.9 Polyneuropathy, unspecified; Z79.899 Other long term (current) drug therapy; Z79.82 Long term (current) use of aspirin

== ENCOUNTER → 2021-06-14 | Outpatient (CLI) | payer BC ==
[~2021-06-14] MED LIST changes: +CYCL10TA25 PO; +DIAZ5TAB49 PO; -DULO60CA58 PO; +DULO60CA59 PO; +SIMV40TA25 PO
--- NOTE | 2021-06-14 16:40 | Diagnostic Imaging Report ---
PROCEDURE: MRI lumbar spine. TECHNIQUE: Multiplanar, multisequence MRI of the lumbar spine was performed without contrast. INDICATION: Low back pain COMPARISON: None FINDINGS: The last well-formed disc space will be labeled L5-S1 for the purposes of this examination. There is grade 1 retrolisthesis at L1-L2 and grade 1 anterolisthesis at L4-L5. There is disc height loss throughout the lumbar spine, particularly at L1-L2, L2-L3, and L4-L5. Vertebral body heights are preserved. No acute fracture is seen. There are Modic type I degenerative endplate changes at L2-L3 and L4-L5. The conus terminates in the appropriate position. Soft tissues about the lumbar spine demonstrate no acute abnormality. T12-L1: No significant disc bulge. No spinal canal or foraminal stenosis. L1-L2: Diffuse disc bulge with facet arthropathy. Mild spinal canal narrowing. Mild bilateral foraminal narrowing. L2-L3: Diffuse disc bulge with facet arthropathy and ligamentous infolding. Effacement of the lateral recesses. Moderate spinal canal stenosis. Moderate bilateral foraminal stenoses. L3-L4: Diffuse disc bulge and facet arthropathy and ligamentous infolding. Effacement of the lateral recesses. Moderate spinal canal stenosis. Moderate right and severe left foraminal stenosis. L4-L5: Diffuse disc bulge with marked facet arthropathy and ligamentous infolding. Moderate spinal canal stenosis with effacement of the right lateral recess. Moderate to severe right and severe left foraminal stenosis. L5-S1: Diffuse disc bulge with marked facet arthropathy. No spinal canal stenosis. Mild bilateral foraminal narrowing. IMPRESSION: 1. Moderate to marked degenerative changes throughout the lumbar spine with moderate multilevel spinal canal stenosis. 2. Multilevel foraminal stenoses, most severe at L3-L4 and L4-L5 on the left. Dictated by: Dictated on workstation # [id number]
== END ==
LOC: RAD 13:15
PROVIDERS: ATTEND Nurse Practitioner
DX: M47.816 Spondylosis without myelopathy or radiculopathy, lumbar region (principal); M48.061 Spinal stenosis, lumbar region without neurogenic claudication
CPT/HCPCS: 72148

== ENCOUNTER 2021-10-26 20:32 | Emergency (ER) | payer BC ==
[~2021-10-26] VITALS: Ht 173 cm; Wt 106.0 kg
[~2021-10-26 20:32] MED LIST changes: +ENAL1TAB14 PO; -ENAL1TAB8 PO
[2021-10-26 21:03] VITALS: BP 144/84
[2021-10-26] MEDS ORDERED: AUGMENTIN 875 MG TAB (AMOXICILLIN/CLAVULANATE) PO STA (21:24)
[2021-10-26] MEDS ORDERED: AMOX1TAB12 PO (21:27)
--- NOTE | 2021-10-26 21:27 | ED Integumentary General ---
General Chief Complaint: Bite-Animal/Human/Insect Stated Complaint: BITE BY DOG ON LEFT KNEE AND ARM Nursing Triage Note: dog bites to left elbow, left knee. pt's pet dogs not up to date on shots. Source: patient Exam Limitations: no limitations History of Present Illness Date Seen by Provider: October 26, 2021 Time Seen by Provider: 21:25 Initial Comments Patient is a 61-year-old male who presents ED with dog bite. Patient was breaking up a dog fight between his dogs. Dog is a pointer and a Chihuahua. The pointer dog bit him on the left knee and left medial elbow. This occurred around 730. Did break skin cause some mild bleeding. He cleaned the wounds with hydrogen peroxide. Reports normal active range of motion of his left elbow and knee. Not up-to-date on his tetanus within the past 5 years. Reports mild swelling of the left knee. Denies any bruising, redness, fever, chills Allergies and Home Medications Allergies Coded Allergies: No Known Drug Allergies (Unverified , 10/07/12) Patient Home Medication List Home Medication List Reviewed: Yes Amoxicillin/Potassium Clav (Amox Tr-K Clv 875-125 mg Tab) 875 Mg-125 Mg Tablet, 1 EACH PO BID Prescribed by: BARBIE ROSS on 10/26/212126 Aspirin (Aspirin) 81 Mg Tab.chew, 81 MG PO DAILY, (Reported) Entered as Reported by: JAZLYN SEALS on 07/06/18 1430 Cyclobenzaprine HCl (Cyclobenzaprine HCl) 10 Mg Tablet, 10 MG PO HS PRN for MUSCLE SPASMS, (Reported) Entered as Reported by: JAZLYN SEALS on 07/06/18 1430 Diazepam (Diazepam) 5 Mg Tablet, 5 MG PO HS PRN for ANXIETY, (Reported) Entered as Reported by: JAZLYN SEALS on 07/06/18 1430 Diclofenac Sodium (Diclofenac Sodium) 75 Mg Tablet.dr, 75 MG PO BID, (Reported) Entered as Reported by: JAZLYN SEALS on 07/06/18 1430 Duloxetine HCl (Duloxetine HCl) 60 Mg Capsule.dr, 60 MG PO DAILY, (Reported) Entered as Reported by: JAZLYN SEALS on 07/06/18 1430 Enalapril/Hydrochlorothiazide (Enalapril-Hctz 5-12.5 mg Tab) 1 Each Tablet, 1 EACH PO DAILY, (Reported) Entered as Reported by: JAZLYN SEALS on 07/06/18 1430 Gabapentin (Gabapentin) 300 Mg Capsule, 300 MG PO HS, (Reported) Entered as Reported by: JAZLYN SEALS on 07/06/18 1430 Simvastatin (Simvastatin) 40 Mg Tablet, 40 MG PO HS, (Reported) Entered as Reported by: JAZLYN SEALS on 07/06/18 1430 Venlafaxine HCl (Effexor Xr) 75 Mg Cap.er.24h, 75 MG PO DAILY, (Reported) Entered as Reported by: JAZLYN SEALS on 07/06/18 1430 Review of Systems Review of Systems Constitutional: No chills, No diaphoresis, No malaise, No weakness EENTM: No hearing loss, No ear pain, No blurred vision, No mouth pain, No mouth swelling Respiratory: No cough, No dyspnea on exertion Cardiovascular: No chest pain Gastrointestinal: No abdominal pain, No diarrhea, No nausea, No vomiting Genitourinary: No decreased output, No discharge Musculoskeletal: No back pain, No joint pain; muscle pain Skin: change in color Psychiatric/Neurological: Denies Depressed All Other Systems Reviewed Negative Unless Noted: Yes Past Muzubjk-Zyjzqj-Mhdwpp Hx Patient Social History Tobacco Use?: No Substance use?: No Alcohol Use?: Yes Alcohol Frequency: Once in a while Pt feels they are or have been: No Immunizations Up To Date Tetanus Booster (TDap): More than 5yrs Seasonal Allergies Seasonal Allergies: Yes Past Medical History Surgery/Hospitalization HX: bilateral knee replacement, umb, hernia, menisectomy, htn, arthritis, neuropathy, high cholesterol. Surgeries: Yes (INGROWN TOE NAIL, umb hernia, L knee scope) Tonsillectomy Respiratory: Yes Sleep Apnea Currently Using CPAP: Yes Cardiac: Yes Hypertension Neurological: No Reproductive Disorders: No Sexually Transmitted Disease: No HIV/AIDS: No Genitourinary: No Gastrointestinal: Yes Hemorrhoids Musculoskeletal: Yes Arthritis Endocrine: No HEENT: No Loss of Vision: Denies Hearing Impairment: Denies Cancer: No Psychosocial: Yes Anxiety, Depression Integumentary: No Blood Disorders: No Adverse Reaction/Blood Tranf: No Family Medical History Heart Disease Physical Exam Vital Signs Vital Signs - First Documented 10/26/21 21:03 Temp 36.8 Pulse 88 Resp 18 B/P (MAP) 144/84 (104) Pulse Ox 98 O2 Delivery Room Air Capillary Refill : Less Than 3 Seconds General Appearance: WD/WN, no apparent distress HEENT: PERRL/EOMI, normal ENT inspection, TMs normal Neck: non-tender, full range of motion, supple, normal inspection Cardiovascular: regular rate, rhythm, no edema, no gallop, no JVD Respiratory: chest non-tender, lungs clear, normal breath sounds, no respiratory distress Gastrointestinal: normal bowel sounds, non tender, soft, no organomegaly Back: normal inspection Extremities: other (Puncture wound to left medial elbow. Puncture wounds to left anterior knee. Mild swelling to left anterior knee without redness. No active bleeding. Superficial wounds) Skin: other (Small abrasions, puncture wounds to left anterior knee and left medial elbow.) Progress/Results/Core Measures Results/Orders My Orders Orders - JANAE RIOJAS Pertuss(Acell),Tet Adult (Boostrix (10/26/21 21:30) Amoxicillin/Clavulanate Tablet (Augmenti (10/26/21 21:24) Vital Signs/I&O 10/26/21 21:03 Temp 36.8 Pulse 88 Resp 18 B/P (MAP) 144/84 (104) Pulse Ox 98 O2 Delivery Room Air Blood Pressure Mean: 104 Departure Communication (PCP) Patient was breaking up a fight between his dogs at home. He states the dogs are not up-to-date on the rabies but they stay at home. He is not concerned for rabies or does not want to be treated prophylactically. Patient was given tetanus shot. Irrigated and cleaned wounds here in the ED. Dress wounds. Neosporin twice a day. Was given dose of Augmentin. Will discharge with Augmentin. Updated tetanus. Discussed return precautions such as redness, swelling. Patient with normal active range of motion of the extremities. Refused any x-rays. Appears to be more superficial. If any worsening symptoms to return back to ED. Impression Primary Impression: Dog bite Disposition: 01 HOME, SELF-CARE Condition: Stable Departure-Patient Inst. Decision time for Depature: 21:26 Referrals: ANURAG BROOKS MD (PCP) Primary Care Physician MACARENA TAM MD (Family) Primary Care Physician Patient Instructions: Animal and Human Bites Add. Discharge Instructions: Keep the area clean. Neosporin twice a day. Ice to help with swelling. Return back to ED if symptoms worsen such as redness, swelling. All discharge instructions reviewed with patient and/or family. Voiced understanding. Scripts Amoxicillin/Potassium Clav (Amox Tr-K Clv 875-125 mg Tab) 875 Mg-125 Mg Tablet 1 EACH PO BID for 7 Days, #14 TAB Prov: JANAE RIOJAS 10/26/21 JANAE RIOJAS October 26, 2021 21:27
[2021-10-26] MEDS ORDERED: TETANUS,DIPTH,PERTUSS P/F (BOOSTRIX) 0.5 ML VIAL IM ONE (21:30)
== END 2021-10-26 21:36 | disposition home or self-care (01) ==
LOC: EDUNIT# 20:32 → ER 20:37
DX: S81.052A Open bite, left knee, initial encounter (principal); S51.052A Open bite, left elbow, initial encounter; G47.30 Sleep apnea, unspecified; Z96.653 Presence of artificial knee joint, bilateral; Z99.89 Dependence on other enabling machines and devices; W54.0XXA Bitten by dog, initial encounter
CPT/HCPCS: 90715; 99284

== ENCOUNTER → 2022-04-18 | Outpatient (CLI) | payer BC ==
[~2022-04-18] MED LIST changes: +AMOX1TAB12 PO
--- NOTE | 2022-04-18 17:03 | Diagnostic Imaging Report ---
EXAMINATION: Left hip unilateral, 2 or 3 views (w/pelvis when done). HISTORY: Left hip pain. COMPARISON: None available. FINDINGS: Two views of the left hip demonstrate no evidence for fracture or dislocation. Densities adjacent to the greater trochanter are possibly due to calcific tendinitis. Well-corticated osseous density is seen inferior to the hip joint, chronic in appearance. There is mild atherosclerotic disease. IMPRESSION: 1. Chronic findings with no acute osseous abnormality. Dictated by: Dictated on workstation # [id number]
== END ==
LOC: RAD 15:00
PROVIDERS: ATTEND Registered Nurse
DX: M25.552 Pain in left hip (principal)
CPT/HCPCS: 73502